=== PATIENT | male | born 1940 | race Caucasian/White ===

== ENCOUNTER → 2020-05-07 08:09 | Outpatient (BNVA) | payer MEDICARE, SELFPAY | PROVIDERS: PCP Internal Medicine; Visit Provider Internal Medicine | DX: I48.20 Chronic atrial fibrillation, unspecified (principal); Z51.81 Encounter for therapeutic drug level monitoring; Z79.01 Long term (current) use of anticoagulants | CPT/HCPCS: 85610; 99211 ==

== ENCOUNTER → 2020-05-18 08:16 | Outpatient (BNVA) | payer MEDICARE, SELFPAY | PROVIDERS: PCP Internal Medicine; Visit Provider Internal Medicine | DX: I48.20 Chronic atrial fibrillation, unspecified (principal); Z51.81 Encounter for therapeutic drug level monitoring; Z79.01 Long term (current) use of anticoagulants | CPT/HCPCS: 85610; 99211 ==

== ENCOUNTER → 2020-06-04 08:15 | Outpatient (BNVA) | payer MEDICARE, SELFPAY | PROVIDERS: PCP Internal Medicine; Visit Provider Internal Medicine | DX: I48.20 Chronic atrial fibrillation, unspecified (principal); Z51.81 Encounter for therapeutic drug level monitoring; Z79.01 Long term (current) use of anticoagulants | CPT/HCPCS: 85610; 99211 ==

== ENCOUNTER → 2020-06-29 08:25 | Outpatient (BNVA) | payer MEDICARE, SELFPAY | PROVIDERS: PCP Internal Medicine; Visit Provider Internal Medicine | DX: I48.20 Chronic atrial fibrillation, unspecified (principal); Z51.81 Encounter for therapeutic drug level monitoring; Z79.01 Long term (current) use of anticoagulants | CPT/HCPCS: 85610; 99211 ==

== ENCOUNTER → 2020-07-08 08:23 | Outpatient (BNVA) | payer MEDICARE, SELFPAY | PROVIDERS: PCP Internal Medicine; Visit Provider Internal Medicine | DX: I48.20 Chronic atrial fibrillation, unspecified (principal); Z51.81 Encounter for therapeutic drug level monitoring; Z79.01 Long term (current) use of anticoagulants | CPT/HCPCS: 85610; 99211 ==

== ENCOUNTER → 2020-07-15 08:02 | Outpatient (BNVA) | payer MEDICARE, SELFPAY | PROVIDERS: PCP Internal Medicine; Visit Provider Internal Medicine | DX: I48.20 Chronic atrial fibrillation, unspecified (principal); Z51.81 Encounter for therapeutic drug level monitoring; Z79.01 Long term (current) use of anticoagulants | CPT/HCPCS: 85610; 99211 ==

== ENCOUNTER → 2020-08-12 08:19 | Outpatient (BNVA) | payer MEDICARE, SELFPAY | PROVIDERS: PCP Internal Medicine; Visit Provider Internal Medicine | DX: I48.20 Chronic atrial fibrillation, unspecified (principal); Z51.81 Encounter for therapeutic drug level monitoring; Z79.01 Long term (current) use of anticoagulants | CPT/HCPCS: 85610; 99211 ==

== ENCOUNTER → 2020-09-16 08:15 | Outpatient (BNVA) | payer MEDICARE, SELFPAY | PROVIDERS: PCP Internal Medicine; Visit Provider Internal Medicine | DX: I48.20 Chronic atrial fibrillation, unspecified (principal); Z51.81 Encounter for therapeutic drug level monitoring; Z79.01 Long term (current) use of anticoagulants | CPT/HCPCS: 85610; 99211 ==

== ENCOUNTER → 2020-09-23 08:14 | Outpatient (BNVA) | payer MEDICARE, SELFPAY | PROVIDERS: PCP Internal Medicine; Visit Provider Internal Medicine | DX: Z79.01 Long term (current) use of anticoagulants (principal); Z51.81 Encounter for therapeutic drug level monitoring | CPT/HCPCS: 85610; 99211 ==

== ENCOUNTER → 2020-10-28 08:03 | Outpatient (BNVA) | payer MEDICARE, SELFPAY | PROVIDERS: PCP Internal Medicine; Visit Provider Internal Medicine | DX: I48.20 Chronic atrial fibrillation, unspecified (principal); Z51.81 Encounter for therapeutic drug level monitoring; Z79.01 Long term (current) use of anticoagulants | CPT/HCPCS: 85610; 99211 ==

== ENCOUNTER → 2020-12-02 08:23 | Outpatient (BNVA) | payer MEDICARE, SELFPAY | PROVIDERS: PCP Internal Medicine; Visit Provider Internal Medicine | DX: I48.20 Chronic atrial fibrillation, unspecified (principal); Z51.81 Encounter for therapeutic drug level monitoring; Z79.01 Long term (current) use of anticoagulants | CPT/HCPCS: 85610; 99211 ==

== ENCOUNTER 2020-12-14 11:01 | Outpatient (REF) | payer MEDICARE, SELFPAY ==
--- NOTE | ~2020-12-14 | US_ITS ---
EXAMINATION: US VENOUS ULTRASOUND WITH DOPPLER LOWER EXTREMITY, RIGHT CLINICAL INFORMATION: Acute embolism and thrombosis COMPARISON: None TECHNIQUE: Ultrasound of the deep veins is performed from the hip to the calf with compression sonography and color and pulse Doppler assessment. Spectral analysis with color-flow imaging is performed. FINDINGS: There is normal venous compression and respiratory variation and augmented flow. The visualized common femoral vein, superficial femoral vein, profunda femoral vein, popliteal vein, and the trifurcation region shows no evidence of deep venous thrombosis. There is no significant popliteal fossa cyst. There is soft tissue edema in the calf. If the patient's symptoms persist, followup ultrasound in 5 days 7 days might be of value to exclude proximal propagation from a non-visualized calf vein. US/US venous duplex LE RT IMPRESSION: No DVT demonstrated in the right lower extremity. Soft tissue edema in calf.
[2020-12-14 11:43] LABS: MANUAL DIFF FLAG NO
[2020-12-14 12:03] LABS: D Dimer < 200 NG/ML
[2020-12-14 12:04] LABS: Basophils Percent Auto 0.4 % (0-2); Eosinophils Absolute Auto 0.3 X10*3/uL (0.0-0.4); Hematocrit 43.7 % (42-52); Hemoglobin 14.6 g/dl (14.0-18.0); Imm Gran Pct Auto 1.4 % (0.0-0.4); Lymphocytes Absolute Auto 1.7 X10*3/uL (1.2-4.9); Lymphocytes Percent Auto 23.7 % (20-40); Mean Corpuscular HGB Conc 33.4 g/dl (31.0-36.0); Mean Corpuscular Hemoglobin 31.2 pg (27.0-33.0); Mean Corpuscular Volume 93.4 fL (80-98); Mean Platelet Volume 9.7 fL (9.4-12.4); Monocytes Absolute Auto 0.6 X10*3/uL (0.1-1.2); Monocytes Percent Auto 8.5 % (2-11); Neutrophils Absolute Auto 4.3 X10*3/uL (2.0-8.3); Platelet Count 150 X10*3/uL (160-400); Red Blood Count 4.68 X10*6/uL (4.60-5.80); Red Cell Distribution Width 13.2 % (11.0-16.0)
[2020-12-14 12:26] LABS: B Type Natriuretic Peptide 98 pg/mL (<100)
[2020-12-14 12:27] LABS: Alanine Aminotransferase 22 U/L (0-40); Albumin Level 4.7 g/dL (3.5-5.0); Alkaline Phosphatase 65 U/L (39-117); Anion Gap 11 (12-20); Aspartate Amino Transferase 21 U/L (5-37); Bilirubin Total 1.3 mg/dL (0.0-1.0); Blood Urea Nitrogen 23 mg/dL (9-16); Calcium 9.3 mg/dL (8.4-10.2); Carbon Dioxide 29 mmol/L (22-29); Chloride 102 mmol/L (96-108); Estimated Glomerular Filt Rate > 60; Glucose Random 98 mg/dL (60-115); Potassium 4.6 mmol/L (3.3-5.1); Sodium 137 mmol/L (135-145); Total Protein 7.7 g/dL (6.5-8.0)
[2020-12-14 12:48] LABS: Free T4 (Free Thyroxine) 1.01 ng/dL (0.71-1.85)
== END 2020-12-14 11:02 | disposition home or self-care (01) ==
LOC: HO.US 11:01
PROVIDERS: PCP Internal Medicine; Visit Provider Internal Medicine
DX: I82.409 Acute embolism and thrombosis of unspecified deep veins of unspecified lower extremity (principal)
CPT/HCPCS: 36415; 80053; 83880; 84439; 84443; 85025; 85379; 93971

== ENCOUNTER → 2021-01-06 08:26 | Outpatient (BNVA) | payer MEDICARE, SELFPAY | PROVIDERS: PCP Internal Medicine; Visit Provider Internal Medicine | DX: I48.20 Chronic atrial fibrillation, unspecified (principal); Z51.81 Encounter for therapeutic drug level monitoring; Z79.01 Long term (current) use of anticoagulants | CPT/HCPCS: 85610; 99211 ==

== ENCOUNTER 2021-01-27 08:32 | Outpatient (REF) | payer MEDICARE, SELFPAY ==
--- NOTE | ~2021-01-27 | XR_ITS ---
EXAMINATION: XR ANKLE, RIGHT CLINICAL INFORMATION: Right ankle effusion. COMPARISON: None TECHNIQUE: AP, lateral, and mortise views of the right ankle. FINDINGS: No acute fracture or dislocation. The ankle mortise is maintained. No joint space narrowing or marginal osteophytes. No osseous erosion. Tiny plantar and small dorsal calcaneal enthesophytes. Circumferential soft tissue swelling extending along the dorsum of the foot. No significant joint effusion. XR/XR ankle RT 2V IMPRESSION: Circumferential soft tissue swelling with extension along the dorsum of the foot. No acute osseous abnormality.
== END 2021-01-27 08:33 | disposition home or self-care (01) ==
LOC: HO.XRAY 08:32
PROVIDERS: PCP Internal Medicine; Visit Provider Internal Medicine
DX: M25.471 Effusion, right ankle (principal)
CPT/HCPCS: 73600

== ENCOUNTER → 2021-02-10 08:26 | Outpatient (BNVA) | payer MEDICARE, SELFPAY | PROVIDERS: PCP Internal Medicine; Visit Provider Internal Medicine | DX: I48.20 Chronic atrial fibrillation, unspecified (principal); Z51.81 Encounter for therapeutic drug level monitoring; Z79.01 Long term (current) use of anticoagulants | CPT/HCPCS: 85610; 99211 ==

== ENCOUNTER → 2021-03-10 08:29 | Outpatient (BNVA) | payer MEDICARE, SELFPAY | PROVIDERS: PCP Internal Medicine; Visit Provider Internal Medicine | DX: I48.20 Chronic atrial fibrillation, unspecified (principal); Z51.81 Encounter for therapeutic drug level monitoring; Z79.01 Long term (current) use of anticoagulants | CPT/HCPCS: 85610; 99211 ==

== ENCOUNTER → 2021-04-14 08:21 | Outpatient (BNVA) | payer MEDICARE, SELFPAY | PROVIDERS: PCP Internal Medicine; Visit Provider Internal Medicine | DX: I48.20 Chronic atrial fibrillation, unspecified (principal); Z51.81 Encounter for therapeutic drug level monitoring; Z79.01 Long term (current) use of anticoagulants | CPT/HCPCS: 85610; 99211 ==

== ENCOUNTER → 2021-05-19 08:31 | Outpatient (BNVA) | payer MEDICARE, SELFPAY | PROVIDERS: PCP Internal Medicine; Visit Provider Internal Medicine | DX: I48.20 Chronic atrial fibrillation, unspecified (principal); Z51.81 Encounter for therapeutic drug level monitoring; Z79.01 Long term (current) use of anticoagulants | CPT/HCPCS: 85610; 99211 ==

== ENCOUNTER → 2021-06-21 08:25 | Outpatient (BNVA) | payer MEDICARE, SELFPAY | PROVIDERS: PCP Internal Medicine; Visit Provider Internal Medicine | DX: I48.20 Chronic atrial fibrillation, unspecified (principal); Z51.81 Encounter for therapeutic drug level monitoring; Z79.01 Long term (current) use of anticoagulants | CPT/HCPCS: 85610; 99211 ==

== ENCOUNTER → 2021-07-26 08:31 | Outpatient (BNVA) | payer MEDICARE, SELFPAY | PROVIDERS: PCP Internal Medicine; Visit Provider Internal Medicine | DX: I48.20 Chronic atrial fibrillation, unspecified (principal); Z51.81 Encounter for therapeutic drug level monitoring; Z79.01 Long term (current) use of anticoagulants | CPT/HCPCS: 85610; 99211 ==

== ENCOUNTER → 2021-08-30 09:02 | Outpatient (BNVA) | payer MEDICARE, SELFPAY | PROVIDERS: PCP Internal Medicine; Visit Provider Internal Medicine | DX: I48.20 Chronic atrial fibrillation, unspecified (principal); Z51.81 Encounter for therapeutic drug level monitoring; Z79.01 Long term (current) use of anticoagulants | CPT/HCPCS: 85610; 99211 ==

== ENCOUNTER → 2021-10-04 13:26 | Outpatient (BNVA) | payer MEDICARE, SELFPAY | PROVIDERS: PCP Internal Medicine; Visit Provider Internal Medicine | DX: I48.20 Chronic atrial fibrillation, unspecified (principal); Z79.01 Long term (current) use of anticoagulants; Z51.81 Encounter for therapeutic drug level monitoring | CPT/HCPCS: 85610; 99211 ==

== ENCOUNTER → 2021-11-08 08:29 | Outpatient (BNVA) | payer MEDICARE, SELFPAY | PROVIDERS: PCP Internal Medicine; Visit Provider Internal Medicine | DX: I48.20 Chronic atrial fibrillation, unspecified (principal); Z79.01 Long term (current) use of anticoagulants; Z51.81 Encounter for therapeutic drug level monitoring | CPT/HCPCS: 85610; 99211 ==

== ENCOUNTER → 2021-12-08 08:27 | Outpatient (BNVA) | payer MEDICARE, SELFPAY | PROVIDERS: PCP Internal Medicine; Visit Provider Internal Medicine | DX: I48.20 Chronic atrial fibrillation, unspecified (principal); Z79.01 Long term (current) use of anticoagulants; Z51.81 Encounter for therapeutic drug level monitoring | CPT/HCPCS: 85610; 99211 ==

== ENCOUNTER → 2022-01-12 08:39 | Outpatient (BNVA) | payer MEDICARE, SELFPAY | PROVIDERS: PCP Internal Medicine; Visit Provider Internal Medicine | DX: I48.20 Chronic atrial fibrillation, unspecified (principal); Z79.01 Long term (current) use of anticoagulants; Z51.81 Encounter for therapeutic drug level monitoring | CPT/HCPCS: 85610; 99211 ==

== ENCOUNTER → 2022-01-26 08:31 | Outpatient (BNVA) | payer MEDICARE, SELFPAY | PROVIDERS: PCP Internal Medicine; Visit Provider Internal Medicine | DX: I48.20 Chronic atrial fibrillation, unspecified (principal); Z79.01 Long term (current) use of anticoagulants; Z51.81 Encounter for therapeutic drug level monitoring | CPT/HCPCS: 85610; 99211 ==

== ENCOUNTER → 2022-03-09 08:23 | Outpatient (BNVA) | payer MEDICARE, SELFPAY | PROVIDERS: PCP Internal Medicine; Visit Provider Internal Medicine | DX: I48.20 Chronic atrial fibrillation, unspecified (principal); Z79.01 Long term (current) use of anticoagulants; Z51.81 Encounter for therapeutic drug level monitoring | CPT/HCPCS: 85610; 99211 ==

== ENCOUNTER → 2022-03-15 08:21 | Outpatient (REF) | payer MEDICARE, SELFPAY ==
--- NOTE | 2022-03-15 08:24 | CA_ITS ---
Transthoracic Echocardiogram Patient (Last, First, Middle): Erasmo Escudero R Gender: Male Date of : 1940 Age: 81 Procedure Date: 03/15/2022 Procedure Type: Transthoracic Echocardiogram Location: OP Height: 182.88 cm Weight: 97.07 kg BSA: 2.19 m2 Heart Rate: bpm BP: 140 / 75 mmHg Service Employee: [employer] Referring MD: Royal Aguila MD Autoc[employer] Technician: Roc Kaplan MD Symptoms: I77.810 - Thoracic aortic ectasia Study Quality: Fair ECG Rhythm: Ventriculary paced rhythm Conclusions: - 1. Mild LV systolic dysfunction with mild LVH 2 Moderately dilated left atrium and severely dilated right atrium 3. Mild mitral and tricuspid regurgitation 4. Normal RV systolic pressure 5. No pericardial effusion Findings Left Ventricle Normal left ventricular cavity size. There is mildly increased left ventricular wall thickness. The left ventricular systolic function is mildly decreased. The visually estimated ejection fraction is between 45-50%. Regional wall motion abnormalities can not be excluded due to suboptimal endocardial definition. There is paradoxical septal motion consistent with a right ventricular pacemaker. Diastolic function is indeterminate on the basis of available data. Right Ventricle Mildly increased right ventricular cavity size. There is normal right ventricular systolic function. There is a pacemaker wire seen in the right ventricle. Atria The left atrium is moderately dilated. Interatrial shunt cannot be excluded. The right atrium is severely dilated. Aortic Valve There is mild calcification of the aortic valve. There is moderate thickening of the aortic valve. There is no aortic valve stenosis. There is no aortic valve regurgitation. Mitral Valve There is mild anterior and posterior mitral leaflet thickening. There is mild mitral annular calcification. There is mild mitral valve regurgitation. There is no mitral valve stenosis. Pulmonic Valve The pulmonic valve is likely normal. There is trace to mild pulmonic valve regurgitation. Tricuspid Valve Likely normal tricuspid valve structure and function. There is mild tricuspid valve regurgitation. The right ventricular systolic pressure is normal. The right ventricular systolic pressure is 26 mmHg. Normal right atrial pressure. There is no evidence of pulmonary hypertension. Great Vessels All visible segments of the aorta are normal in size. The pulmonary artery was not well visualized. Venous The inferior vena cava is normal in size and collapses greater than 50% with inspiration. Pericardium/Pleural There is no evidence of pericardial effusion. Prior Study Comparison no previous study in the last 5 years for comparison Measurements 2D Linear Measurements IVSd: 1.35 0.6-0.9/0.6-1.0 cm LVIDd: 5.05 3.9-5.3/4.2-5.9 cm LVIDd Index: 2.31 2.4-3.2/2.2-3.1 cm/m2 LVIDs: 3.37 2.0-3.6 cm LVPWd: 1.24 0.7-1.1 cm Ao Root: 3.50 2.1-3.5 cm LA Diam: 5.00 2.7-3.8/3.0-4.0 cm LAIDs Index: 2.28 1.5-2.3 cm/m2 LV Mass: 329.84 67-162/88-224 g LV Mass Index: 150.61 43-95/49-115 g/m2 LVOT Diam: 2.10 3.0+(-)1.3 cm 2D Systolic Function EF 4C: 44.10 >55% EF 2C: 45.60 >55% EF BiP: 46.90 >55% Mitral Valve MV Pk E: 0.83 MV PK A: 0.39 MV Decel Time: 236.00 E/A: 2.10 E'Lateral: 12.80 E'Medial: 9.14 E/E' Med: 9.00 E/E' Lat: 6.50 PHT: 69.00 MVA PHT: 3.19 Decel [place]: 3.50 Aortic Valve AoV Pk Ronald: 1.19 AoV Mn Ronald: 0.89 AoV VTI: 0.26 AoV Pk Grad: 6.00 Aov Mn Grad: 3.00 MASON Cont.VTI: 2.40 LVOT LVOT Pk Ronald: 0.86 LVOT Mn Ronald: 0.64 LVOT VTI: 0.18 LVOT Pk Grad: 3.00 LVOT Mn Grad: 2.00 LVOT Diam: 2.10 LVOT Area: 3.46 Diastolic Function MV Pk E: 0.83 MV Pk A: 0.39 E/A: 2.10 E'Medial: 9.14 E/E' Med: 9.00 E' Laterial: 12.80 E/E' Lat: 6.50 Right Ventricle TAPSE (mm): 18.00 TVS' Ronald: 11.00 Tricuspid Valve TR Pk Ronald: 2.38 TR Pk Grad: 23.00 RA Press: 3.00 RVSP: 26.00 Great Vessels Aorta Ao Root-2D: 3.50 2.0-3.7 cm Ao Asc: 3.40 2.1-3.4 cm Pulmonary Valve PV Pk Ronald: 0.90 Peak PV Grad: 3.00 Updated in Other Vendor System with Status of Final Roc Kaplan MD electronically signed on 03/15/2022 10:39:20 AM with status of Final
== END ==
LOC: HO.CARD 08:21
PROVIDERS: Visit Provider Internal Medicine
DX: I77.810 Thoracic aortic ectasia (principal)
CPT/HCPCS: 93306

== ENCOUNTER → 2022-04-10 08:20 | Outpatient (BNVA) | payer MEDICARE, SELFPAY | PROVIDERS: PCP Internal Medicine; Visit Provider Internal Medicine | DX: I48.20 Chronic atrial fibrillation, unspecified (principal); Z79.01 Long term (current) use of anticoagulants; Z51.81 Encounter for therapeutic drug level monitoring | CPT/HCPCS: 85610; 99211 ==

== ENCOUNTER 2022-05-10 06:24 | Emergency (ER) | payer MEDICARE, SELFPAY ==
[2022-05-10 06:36] VITALS: BP 153/89; BP 184/100; PULSE 68; PULSE 88; RESP 17; TEMP 36.4; O2SAT 98; O2SAT 99; BMI 29.1
--- NOTE | 2022-05-10 06:37 | ED.GENADULT ---
HPI - General Adult General Chief complaint: General Medical Stated complaint: EPITAXIS X10 MINS Time Seen by Provider: 05/10/22 06:31 Source: patient and EMS Mode of arrival: EMS Limitations: no limitations History of Present Illness HPI narrative: Patient comes to the emergency room complaining of epistaxis from the right nostril. Patient states that he woke up this morning, noticed that there was some dry blood in his mouth, and suddenly started leaking blood through his right nostril. Patient is on Coumadin, takes it for atrial fibrillation. patient denies any trauma. Related Data Previous Rx's Medication Instructions Recorded furosemide 20 mg tablet 20 mg PO DAILY 90 days #90 tabs 08/23/21 levothyroxine 75 mcg tablet 75 mcg PO QAM #90 tabs 08/23/21 metoprolol succinate 25 mg 25 mg PO DAILY #90 tabs 08/23/21 tablet,extended release 24 hr simvastatin 20 mg tablet 20 mg PO BEDTIME #90 tabs 08/23/21 warfarin 10 mg tablet (Jantoven) See Rx Instructions .Route 08/23/21 .COMPLEX #45 caps warfarin 7.5 mg tablet (Jantoven) 7.5 mg PO Q OTHER DAY #45 caps 08/23/21 zolpidem 5 mg tablet (Ambien) 5 mg PO BEDTIME PRN sleep #20 tabs 03/15/22 Allergies Allergy/AdvReac Type Severity Reaction Status Date / Time doxycycline [Doxycycline] Allergy Severe HIVES Verified 04/10/22 08:23 lisinopril Allergy Severe RASH Verified 04/10/22 08:23 Review of Systems Review of Systems: Constitutional : No Weight loss, No Fever, No Chills, No Night Sweats, No Fatigue, No Malaise ENT/Mouth : Complaining of epistaxis from the right nostril, No Hearing loss, No Ear Pain, No Nasal Congestion, No Sinus Pain, No Hoarseness, No sore throat, No Rhinorrhea, No Swallowing Difficulty Eyes: No Eye Pain, No Swelling, No Redness, No Foreign Body, No Discharge, No Vision Changes Cardiovascular : No Chest Pain, No SOB, No Dyspnea on Exertion, No Orthopnea, No Edema, No Palpitations Respiratory : No Cough, No Sputum, No Wheezing, No Smoke Exposure, No Dyspnea Gastrointestinal : No Nausea, No Vomiting, No Diarrhea, No Constipation, No abdominal Pain, No Hematochezia, No Melena Genitourinary : no irregular bleeding, No Dysuria, No Urinary Frequency, No Hematuria, No Urinary Incontinence, No Urgency, No Flank Pain, No Urinary Flow Changes, No Hesitancy Musculoskeletal : No joint pain, No Myalgias, No Joint Swelling Skin : No Skin Lesions, No rash Neuro : No Weakness, No Numbness, No Paresthesias, No Loss of Consciousness, No Dizziness, No Headache Psych : No Anxiety/Panic, No Depression, No SI/HI/AH/VH, No Social Issues, Heme/Lymph: No Bruising, No Bleeding,No Lymphadenopathy Endocrine : No Polyuria, No Polydipsia, No Temperature Intolerance [facility] Past Medical History Medical History Atrial fibrillation Basal cell carcinoma of skin Hypercholesterolemia Hyperparathyroidism Hypertension Hypothyroid Monoclonal paraproteinemia Sick sinus syndrome Tubular adenoma of colon Surgical History History of parathyroidectomy Family History Family History Father Past heart attack Social History Social History Housing: House Alcohol intake: current Alcohol intake frequency: a few times a week Alcohol type: wine Patient Tobacco Use Status: Never used Tobacco Smoked in Last 30 Days: No e-Cigarette/Vaping Use: Never Used Second Hand Smoke Exposure: No Use of substances other than those prescribed or required for medical reasons: No service: Yes Current occupational status: retired Current occupational exposures/hazards: No Cognitive needs: No Hearing needs: No Vision needs: Yes Physical Exam ED Vital Signs: Vital Signs - 24 hr 05/10/22 06:36 05/10/22 06:39 05/10/22 06:40 Temperature 97.5 F 97.5 F 97.5 F Pulse Rate 68 65 66 Respiratory Rate 17 17 17 Blood Pressure 153/89 H 153/89 H 153/89 H Pulse Oximetry 99 97 98 Oxygen Delivery Method Room Air Room Air Room Air BMI result Body Mass Index 29.1 Const Other: Appearance: Alert. Oriented X3. No acute distress. Eyes: Pupils equal, round and reactive to light. ENT: Pharynx normal. epistaxis from the right nostril. Neck: Normal inspection. Neck supple. No lymph nodes noted. No crepitus CVS: Normal heart rate and rhythm. Pulses normal. Normal S1 and S2 Respiratory: No respiratory distress. Breath sounds normal. No Wheezing. No rales Abdomen: Soft and nontender. No rigidity. No distention. Skin: Skin warm and dry. Normal skin color. Normal skin turgor. Extremities: No lower extremity edema. No Lacerations. No Rash Neuro: Oriented X 3. No motor deficit. No sensory deficit. Moving all extremities. No slurred speech. CN 2 through 12 grossly intact Psych: calm, cooperative, normal affect Course Course Course Narrative: Patient's nostril was sprayed with Afrin, at this time, there is gauze soaked in Afrin in the patient's right nostril, in About 10 minutes, we will reassess we are checking basic lab work including INR, labs pending Sign out given to DR. Crockett Medications Administered Discontinued Medications Generic Name Dose Route Start Last Admin Trade Name Freq PRN Reason Stop Dose Admin Oxymetazoline HCl 2 spray 05/10/22 06:31 05/10/22 06:40 Oxymetazoline Hcl 0.05 % Nasal 15 Ml [place] NOSTRIL-B 05/10/22 06:32 2 spray ONCE ONE Administration Discharge Plan Discharge Clinical Impression: Acute anterior epistaxis Patient Disposition: Still a Patient Prescriptions: No Action zolpidem [Ambien] 5 mg tablet 5 mg PO BEDTIME PRN (Reason: sleep) Qty: 20 2RF metoprolol succinate 25 mg tablet extended release 24 hr 25 mg PO DAILY Qty: 90 3RF simvastatin 20 mg tablet 20 mg PO BEDTIME Qty: 90 3RF levothyroxine 75 mcg tablet 75 mcg PO QAM Qty: 90 3RF warfarin [Jantoven] 7.5 mg tablet 7.5 mg PO Q OTHER DAY Qty: 45 3RF Protocol: Dose Management Condition: Sunday (Week One) Dose/Route: 10 mg Instruction: 1 x 10 mg tablet Condition: Sunday Dose/Route: 7.5 mg Instruction: 1 x 7.5 mg tablet Condition: Sunday Dose/Route: 10 mg Instruction: 1 x 10 mg tablet Condition: Sunday Dose/Route: 7.5 mg Instruction: 1 x 7.5 mg tablet Condition: Dose/Route: 10 mg Instruction: 1 x 10 mg tablet Condition: Sunday Dose/Route: 7.5 mg Instruction: 1 x 7.5 mg tablet Condition: Sunday Dose/Route: 10 mg Instruction: 1 x 10 mg tablet Condition: Sunday ( Two) Dose/Route: 10 mg Instruction: 1 x 10 mg tablet Condition: Sunday Dose/Route: 7.5 mg Instruction: 1 x 7.5 mg tablet Condition: Sunday Dose/Route: 10 mg Instruction: 1 x 10 mg tablet Condition: Sunday Dose/Route: 7.5 mg Instruction: 1 x 7.5 mg tablet Condition: Dose/Route: 10 mg Instruction: 1 x 10 mg tablet Condition: Sunday Dose/Route: 7.5 mg Instruction: 1 x 7.5 mg tablet Condition: Sunday Dose/Route: 10 mg Instruction: 1 x 10 mg tablet Protocol Text: Adjustment Start Date: Sunday04/10/22 INR Value: 2.3 INR Date: 04/10/22 Recheck Date: 05/15/22 Additional Instructions: cont reg dosing call with any medication changes warfarin [Jantoven] 10 mg tablet See Rx Instructions .ROUTE .COMPLEX Qty: 45 3RF Protocol: Dose Management Condition: Sunday (Week One) Dose/Route: 10 mg Instruction: 1 x 10 mg tablet Condition: Sunday Dose/Route: 7.5 mg Instruction: 1 x 7.5 mg tablet Condition: Sunday Dose/Route: 10 mg Instruction: 1 x 10 mg tablet Condition: Sunday Dose/Route: 7.5 mg Instruction: 1 x 7.5 mg tablet Condition: Dose/Route: 10 mg Instruction: 1 x 10 mg tablet Condition: Sunday Dose/Route: 7.5 mg Instruction: 1 x 7.5 mg tablet Condition: Sunday Dose/Route: 10 mg Instruction: 1 x 10 mg tablet Condition: Sunday ( Two) Dose/Route: 10 mg Instruction: 1 x 10 mg tablet Condition: Sunday Dose/Route: 7.5 mg Instruction: 1 x 7.5 mg tablet Condition: Sunday Dose/Route: 10 mg Instruction: 1 x 10 mg tablet Condition: Sunday Dose/Route: 7.5 mg Instruction: 1 x 7.5 mg tablet Condition: Dose/Route: 10 mg Instruction: 1 x 10 mg tablet Condition: Sunday Dose/Route: 7.5 mg Instruction: 1 x 7.5 mg tablet Condition: Sunday Dose/Route: 10 mg Instruction: 1 x 10 mg tablet Protocol Text: Adjustment Start Date: Sunday04/10/22 INR Value: 2.3 INR Date: 04/10/22 Recheck Date: 05/15/22 Additional Instructions: cont reg dosing call with any medication changes Rx Instructions: One tablet by mouth every other day alternating with 7.5 mg; furosemide 20 mg tablet 20 mg PO DAILY 90 Days Qty: 90 3RF
[2022-05-10 06:39] VITALS: BP 153/89; PULSE 65; RESP 17; TEMP 36.4; O2SAT 97
[2022-05-10 06:40] VITALS: BP 153/89; PULSE 66; RESP 17; TEMP 36.4; O2SAT 98
[2022-05-10] MEDS: Oxymetazoline HCl 0.05 % Nasal 15 ML SPRAY 2 SPRAY NOSTRIL-B (06:40)
[2022-05-10 06:59] LABS: MANUAL DIFF FLAG NO
[2022-05-10 07:02] LABS: Basophils Percent Auto 0.7 % (0-2); Eosinophils Absolute Auto 0.3 X10*3/uL (0.0-0.4); Eosinophils Percent Auto 5.7 % (0-4); Hematocrit 41.6 % (42.0-52.0); Hemoglobin 13.9 g/dl (14.0-18.0); Imm Gran Abs Auto 0.06 X10*3/uL (0.00-0.03); Imm Gran Pct Auto 1.1 % (0.0-0.4); Lymphocytes Absolute Auto 1.3 X10*3/uL (1.2-4.9); Lymphocytes Percent Auto 22.6 % (20-40); Mean Corpuscular HGB Conc 33.4 g/dl (31.0-36.0); Mean Corpuscular Hemoglobin 31.2 pg (27.0-33.0); Mean Corpuscular Volume 93.3 fL (80.0-98.0); Mean Platelet Volume 9.3 fL (9.4-12.4); Monocytes Absolute Auto 0.4 X10*3/uL (0.1-1.2); Monocytes Percent Auto 7.8 % (2-11); Neutrophils Absolute Auto 3.5 x10*3/uL (2.0-8.3); Neutrophils Percent Auto 62.1 % (45-73); Platelet Count 145 X10*3/uL (160-400); Red Blood Count 4.46 X10*6/uL (4.60-5.80); White Blood Count 5.7 X10*3/uL (4.8-10.8)
[2022-05-10 07:06] LABS: INTERNATIONAL NORM RATIO 1.9 (0.9-1.1); Prothrombin Time 22.5 SEC (10.0-13.1)
[2022-05-10 07:14] LABS: Anion Gap 12 (12-20); Blood Urea Nitrogen 21 mg/dL (9-16); Calcium 8.9 mg/dL (8.4-10.2); Carbon Dioxide 30 mmol/L (22-29); Chloride 106 mmol/L (96-108); Creatinine Clr Calc Pharmacy 67.7; Estimated Glomerular Filt Rate > 60; Glucose Random 102 mg/dL (60-115); Potassium 4.5 mmol/L (3.3-5.1); Sodium 143 mmol/L (135-145)
[2022-05-10] MEDS: Silver Nitrate Applicator STICK..EA. 1 APPL TOPICAL (08:29)
--- NOTE | 2022-05-10 08:38 | ED.GENADULT ---
HPI - General Adult General Chief complaint: General Medical Stated complaint: EPITAXIS X10 MINS Time Seen by Provider: 05/10/22 06:31 Source: patient and EMS Mode of arrival: EMS Limitations: no limitations Related Data Previous Rx's Medication Instructions Recorded furosemide 20 mg tablet 20 mg PO DAILY 90 days #90 tabs 08/23/21 levothyroxine 75 mcg tablet 75 mcg PO QAM #90 tabs 08/23/21 metoprolol succinate 25 mg 25 mg PO DAILY #90 tabs 08/23/21 tablet,extended release 24 hr simvastatin 20 mg tablet 20 mg PO BEDTIME #90 tabs 08/23/21 warfarin 10 mg tablet (Jantoven) See Rx Instructions .Route 08/23/21 .COMPLEX #45 caps warfarin 7.5 mg tablet (Jantoven) 7.5 mg PO Q OTHER DAY #45 caps 08/23/21 zolpidem 5 mg tablet (Ambien) 5 mg PO BEDTIME PRN sleep #20 tabs 03/15/22 Allergies Allergy/AdvReac Type Severity Reaction Status Date / Time doxycycline [Doxycycline] Allergy Severe HIVES Verified 04/10/22 08:23 lisinopril Allergy Severe RASH Verified 04/10/22 08:23 [facility] Past Medical History Medical History Atrial fibrillation Basal cell carcinoma of skin Hypercholesterolemia Hyperparathyroidism Hypertension Hypothyroid Monoclonal paraproteinemia Sick sinus syndrome Tubular adenoma of colon Surgical History History of parathyroidectomy Family History Family History Father Past heart attack Social History Social History Housing: House Alcohol intake: current Alcohol intake frequency: a few times a week Alcohol type: wine Patient Tobacco Use Status: Never used Tobacco Smoked in Last 30 Days: No e-Cigarette/Vaping Use: Never Used Second Hand Smoke Exposure: No Use of substances other than those prescribed or required for medical reasons: No Advance Directives: No service: Yes Current occupational status: retired Current occupational exposures/hazards: No Cognitive needs: No Hearing needs: No Vision needs: Yes Physical Exam ED Vital Signs: Vital Signs - 24 hr 05/10/22 06:36 11/23/22 06:39 05/10/22 06:40 Temperature 97.5 F 97.5 F 97.5 F Pulse Rate 68 65 66 Respiratory Rate 17 17 17 Blood Pressure 153/89 H 153/89 H 153/89 H Pulse Oximetry 99 97 98 Oxygen Delivery Method Room Air Room Air Room Air BMI result Body Mass Index 29.1 Course Reevaluation(s) Reevaluation #1: Procedure: Silver nitrate cautery, patient tolerated procedure well Time: 08:39 Medications Administered Discontinued Medications Generic Name Dose Route Start Last Admin Trade Name Ivan PRN Reason Stop Dose Admin Oxymetazoline HCl 2 spray 05/10/22 06:31 05/10/22 06:40 Oxymetazoline Hcl 0.05 % Nasal 15 Ml [place] NOSTRIL-B 05/10/22 06:32 2 spray ONCE ONE Administration Silver Nitrate 1 appl 05/10/22 08:02 05/10/22 08:29 Silver Nitrate Applicator Stick..Ea. TOPICAL 05/10/22 08:03 1 appl ONCE ONE Administration Medical Decision Making Lab Data Result diagrams: 05/10/22 06:48 05/10/22 06:48 Labs: Lab Results 05/10/22 05/10/22 05/10/22 Range/Units 06:48 06:48 06:48 WBC 5.7 (4.8-10.8) X10*3/uL RBC 4.46 L (4.60-5.80) X10*6/uL Hgb 13.9 L (14.0-18.0) g/dl Hct 41.6 L (42.0-52.0) % MCV 93.3 (80.0-98.0) fL MCH 31.2 (27.0-33.0) pg MCHC 33.4 (31.0-36.0) g/dl RDW 13.0 (11.0-16.0) % Plt Count 145 L (160-400) X10*3/uL MPV 9.3 L (9.4-12.4) fL Immature Gran % (Auto) 1.1 H (0.0-0.4) % Neut % (Auto) 62.1 (45-73) % Lymph % (Auto) 22.6 (20-40) % [place] % (Auto) 7.8 (2-11) % Eos % (Auto) 5.7 H (0-4) % Baso % (Auto) 0.7 (0-2) % Lymph # (Auto) 1.3 (1.2-4.9) X10*3/uL [place] # (Auto) 0.4 (0.1-1.2) X10*3/uL Eos # (Auto) 0.3 (0.0-0.4) X10*3/uL Baso # (Auto) 0.0 (0.0-0.2) X10*3/uL Abs Immat Gran (auto) 0.06 H (0.00-0.03) X10*3/uL Absolute Neuts (auto) 3.5 (2.0-8.3) x10*3/uL Absolute Nucleated RBC 0.000 (0.0-0.012) X10*3/uL Nucleated RBC % (auto) 0.0 (0.0-0.2) /100WBC PT 22.5 H (10.0-13.1) SEC INR 1.9 H (0.9-1.1) Sodium 143 (135-145) mmol/L Potassium 4.5 (3.3-5.1) mmol/L Chloride 106 (96-108) mmol/L Carbon Dioxide 30 H (22-29) mmol/L Anion Gap 12 (12-20) BUN 21 H (9-16) mg/dL Creatinine 1.00 (0.5-1.4) mg/dL Estim Creat Clear Calc 67.7 Estimated GFR > 60 Random Glucose 102 (60-115) mg/dL Calcium 8.9 (8.4-10.2) mg/dL Discharge Plan Discharge Clinical Impression: Acute anterior epistaxis Patient Disposition: Still a Patient Prescriptions: No Action zolpidem [Ambien] 5 mg tablet 5 mg PO BEDTIME PRN (Reason: sleep) Qty: 20 2RF metoprolol succinate 25 mg tablet extended release 24 hr 25 mg PO DAILY Qty: 90 3RF simvastatin 20 mg tablet 20 mg PO BEDTIME Qty: 90 3RF levothyroxine 75 mcg tablet 75 mcg PO QAM Qty: 90 3RF warfarin [Jantoven] 7.5 mg tablet 7.5 mg PO Q OTHER DAY Qty: 45 3RF Protocol: Dose Management Condition: Sunday (Week One) Dose/Route: 10 mg Instruction: 1 x 10 mg tablet Condition: Sunday Dose/Route: 7.5 mg Instruction: 1 x 7.5 mg tablet Condition: Sunday Dose/Route: 10 mg Instruction: 1 x 10 mg tablet Condition: Sunday Dose/Route: 7.5 mg Instruction: 1 x 7.5 mg tablet Condition: Dose/Route: 10 mg Instruction: 1 x 10 mg tablet Condition: Sunday Dose/Route: 7.5 mg Instruction: 1 x 7.5 mg tablet Condition: Sunday Dose/Route: 10 mg Instruction: 1 x 10 mg tablet Condition: Sunday () Dose/Route: 10 mg Instruction: 1 x 10 mg tablet Condition: Sunday Dose/Route: 7.5 mg Instruction: 1 x 7.5 mg tablet Condition: Sunday Dose/Route: 10 mg Instruction: 1 x 10 mg tablet Condition: Sunday Dose/Route: 7.5 mg Instruction: 1 x 7.5 mg tablet Condition: Dose/Route: 10 mg Instruction: 1 x 10 mg tablet Condition: Sunday Dose/Route: 7.5 mg Instruction: 1 x 7.5 mg tablet Condition: Sunday Dose/Route: 10 mg Instruction: 1 x 10 mg tablet Protocol Text: Adjustment Start Date: Sunday04/10/22 INR Value: 2.3 INR Date: 04/10/22 Recheck Date: 05/15/22 Additional Instructions: cont reg dosing call with any medication changes warfarin [] 10 mg tablet See Rx Instructions .ROUTE .COMPLEX Qty: 45 3RF Protocol: Dose Management Condition: Sunday (Week One) Dose/Route: 10 mg Instruction: 1 x 10 mg tablet Condition: Sunday Dose/Route: 7.5 mg Instruction: 1 x 7.5 mg tablet Condition: Sunday Dose/Route: 10 mg Instruction: 1 x 10 mg tablet Condition: Sunday Dose/Route: 7.5 mg Instruction: 1 x 7.5 mg tablet Condition: Dose/Route: 10 mg Instruction: 1 x 10 mg tablet Condition: Sunday Dose/Route: 7.5 mg Instruction: 1 x 7.5 mg tablet Condition: Sunday Dose/Route: 10 mg Instruction: 1 x 10 mg tablet Condition: Sunday (Week Two) Dose/Route: 10 mg Instruction: 1 x 10 mg tablet Condition: Sunday Dose/Route: 7.5 mg Instruction: 1 x 7.5 mg tablet Condition: Sunday Dose/Route: 10 mg Instruction: 1 x 10 mg tablet Condition: Sunday Dose/Route: 7.5 mg Instruction: 1 x 7.5 mg tablet Condition: Dose/Route: 10 mg Instruction: 1 x 10 mg tablet Condition: Sunday Dose/Route: 7.5 mg Instruction: 1 x 7.5 mg tablet Condition: Sunday Dose/Route: 10 mg Instruction: 1 x 10 mg tablet Protocol Text: Adjustment Start Date: Sunday04/10/22 INR Value: 2.3 INR Date: 04/10/22 Recheck Date: 05/15/22 Additional Instructions: cont reg dosing call with any medication changes Rx Instructions: One tablet by mouth every other day alternating with 7.5 mg; furosemide 20 mg tablet 20 mg PO DAILY 90 Days Qty: 90 3RF
[2022-05-10 08:59] VITALS: BP 145/77; PULSE 64; RESP 14; TEMP 36.4; O2SAT 98
== END 2022-05-10 09:20 | disposition home or self-care (01) ==
PROVIDERS: Emergency Provider Emergency Medicine; PCP Internal Medicine
DX: R04.0 Epistaxis (principal); Z79.899 Other long term (current) drug therapy
CPT/HCPCS: 36415; 80048; 85025; 85610; 99283; 99284

== ENCOUNTER → 2022-05-16 08:33 | Outpatient (BNVA) | payer MEDICARE, SELFPAY | PROVIDERS: PCP Internal Medicine; Visit Provider Internal Medicine | DX: I48.20 Chronic atrial fibrillation, unspecified (principal); Z79.01 Long term (current) use of anticoagulants; Z51.81 Encounter for therapeutic drug level monitoring | CPT/HCPCS: 85610; 99211 ==

== ENCOUNTER → 2022-05-25 13:49 | Outpatient (BNVA) | payer MEDICARE, SELFPAY | PROVIDERS: PCP Internal Medicine; Visit Provider Surgery Vascular Surgery | DX: I83.11 Varicose veins of right lower extremity with inflammation (principal); I89.0 Lymphedema, not elsewhere classified | CPT/HCPCS: 99202 ==

== ENCOUNTER → 2022-06-20 08:30 | Outpatient (BNVA) | payer MEDICARE, SELFPAY | PROVIDERS: PCP Internal Medicine; Visit Provider Internal Medicine | DX: I48.20 Chronic atrial fibrillation, unspecified (principal); Z79.01 Long term (current) use of anticoagulants; Z51.81 Encounter for therapeutic drug level monitoring | CPT/HCPCS: 85610; 99211 ==

== ENCOUNTER 2022-07-05 08:19 | Outpatient (REF) | payer MEDICARE, SELFPAY ==
--- NOTE | ~2022-07-05 | US_ITS ---
EXAMINATION: US LOWER EXTREMITY VENOUS (REFLUX EXAM), BILATERAL CLINICAL INDICATION: Chronic venous insufficiency with lower extremity varicose veins COMPARISON: 12/14/2020 TECHNIQUE: Color flow triplex imaging and compression Doppler was performed to evaluate both the deep and the superficial systems bilaterally. To evaluate the superficial system, the examination was performed in the upright position. Color-flow Doppler ultrasound and compression ultrasound were utilized. In addition, maneuvers were utilized to demonstrate reflux. FINDINGS: 1. DEEP VENOUS ULTRASOUND OF THE RIGHT LOWER EXTREMITY: Common Femoral Vein: Compressible, normal respiratory variation and augmented flow. Femoral Vein: Compressible, normal color flow and augmentation. Popliteal Vein: Compressible, normal augmentation. Deep Reflux: There is no evidence of reflux in the deep system in either the common femoral vein or the popliteal vein. There is no evidence of a Harris's cyst. 2. SUPERFICIAL ULTRASOUND WITH DOPPLER OF RIGHT LOWER EXTREMITY: GREAT SAPHENOUS VEIN: Saphenofemoral Junction: 1.0 cm; Reflux: 0 ms Proximal Thigh: 0.3 cm; Reflux: 0 ms Mid Thigh: 0.4 cm; Reflux: 0 ms Above Knee: 0.4 cm; Reflux: 0 ms At Knee: 0.4 cm; Reflux: 0 ms Below Knee: 0.3 cm; Reflux: 0 ms Mid Calf: 0.3 cm; Reflux: 2256 ms Ankle: 0.4 cm; Reflux: 0 ms DUPLICATED MEDIAL GREAT SAPHENOUS VEIN: Diameter: 0.3 cm Reflux: None DUPLICATED LATERAL GREAT SAPHENOUS VEIN: Diameter: None Imaged Reflux: NA SMALL SAPHENOUS VEIN: Proximal: 0.3 cm; Reflux: 0 ms Distal: 0.3 cm; Reflux: 0 ms VEIN OF GIACOMINI: None Imaged. PERFORATORS: Location: None significant Size: NA Reflux: NA VARICOSITIES: Location: Medial knee off the great saphenous vein and posterior calf off the small saphenous vein Size: 0.3 cm Reflux: None 3. DEEP VENOUS ULTRASOUND OF THE LEFT LOWER EXTREMITY: Common Femoral Vein: Compressible, normal respiratory variation and augmented flow. Femoral Vein: Compressible, normal color flow and augmentation. Popliteal Vein: Compressible, normal augmentation. Deep Reflux: There is no evidence of reflux in the deep system in either the common femoral vein or the popliteal vein. There is no evidence of a Harris's cyst. 4. SUPERFICIAL ULTRASOUND WITH DOPPLER OF LEFT LOWER EXTREMITY: GREAT SAPHENOUS VEIN: Saphenofemoral Junction: 0.8 cm; Reflux: 0 ms Proximal Thigh: 0.5 cm; Reflux: 1944 ms Mid Thigh: 0.2 cm; Reflux: 0 ms Above Knee: 0.2 cm; Reflux: 0 ms At Knee: 0.2 cm; Reflux: 2540 ms Below Knee: 0.2 cm; Reflux: 2476 ms Mid Calf: 0.3 cm; Reflux: 0 ms Ankle: 0.2 cm; Reflux: 0 ms DUPLICATED MEDIAL GREAT SAPHENOUS VEIN: Diameter: None Imaged Reflux: NA DUPLICATED LATERAL GREAT SAPHENOUS VEIN: Diameter: None Imaged Reflux: NA SMALL SAPHENOUS VEIN: Proximal: 0.3 cm; Reflux: 0 ms Distal: 0.2 cm; Reflux: 0 ms VEIN OF GIACOMINI: None Imaged. PERFORATORS: Location: None significant Size: NA Reflux: NA VARICOSITIES: Location: None significant Size: NA Reflux: NA US/US venous duplex LE BI IMPRESSION: Right: Focal reflux is seen within the great saphenous vein in the mid calf. No significant reflux seen otherwise. Small varicose veins as described above Left: Multiple segmental areas of severe reflux in the left great saphenous vein as described above.
== END 2022-07-05 08:20 | disposition home or self-care (01) ==
LOC: HO.US 08:19
PROVIDERS: PCP Internal Medicine; Visit Provider Surgery Vascular Surgery
DX: I83.11 Varicose veins of right lower extremity with inflammation (principal)
CPT/HCPCS: 93970

== ENCOUNTER → 2022-07-18 09:08 | Outpatient (BNVA) | payer MEDICARE, SELFPAY | PROVIDERS: PCP Internal Medicine; Visit Provider Surgery Vascular Surgery | DX: I89.0 Lymphedema, not elsewhere classified (principal); I83.11 Varicose veins of right lower extremity with inflammation | CPT/HCPCS: 99212 ==

== ENCOUNTER → 2022-08-01 08:24 | Outpatient (BNVA) | payer MEDICARE, SELFPAY | PROVIDERS: PCP Internal Medicine; Visit Provider Internal Medicine | DX: I48.20 Chronic atrial fibrillation, unspecified (principal); Z51.81 Encounter for therapeutic drug level monitoring; Z79.01 Long term (current) use of anticoagulants | CPT/HCPCS: 85610; 99211 ==

== ENCOUNTER → 2022-09-04 08:27 | Outpatient (BNVA) | payer MEDICARE, SELFPAY | PROVIDERS: PCP Internal Medicine; Visit Provider Internal Medicine | DX: I48.20 Chronic atrial fibrillation, unspecified (principal); Z79.01 Long term (current) use of anticoagulants; Z51.81 Encounter for therapeutic drug level monitoring | CPT/HCPCS: 85610; 99211 ==

== ENCOUNTER → 2022-10-09 08:37 | Outpatient (BNVA) | payer MEDICARE, SELFPAY | PROVIDERS: PCP Internal Medicine; Visit Provider Internal Medicine | DX: I48.20 Chronic atrial fibrillation, unspecified (principal); Z79.01 Long term (current) use of anticoagulants; Z51.81 Encounter for therapeutic drug level monitoring | CPT/HCPCS: 85610; 99211 ==

== ENCOUNTER → 2022-11-08 08:21 | Outpatient (BNVA) | payer MEDICARE, SELFPAY | PROVIDERS: PCP Internal Medicine; Visit Provider Internal Medicine | DX: I48.20 Chronic atrial fibrillation, unspecified (principal); Z79.01 Long term (current) use of anticoagulants; Z51.81 Encounter for therapeutic drug level monitoring | CPT/HCPCS: 85610 ==

== ENCOUNTER → 2022-12-13 08:22 | Outpatient (BNVA) | payer MEDICARE, SELFPAY | PROVIDERS: PCP Internal Medicine; Visit Provider Internal Medicine | DX: I48.20 Chronic atrial fibrillation, unspecified (principal); Z79.01 Long term (current) use of anticoagulants; Z51.81 Encounter for therapeutic drug level monitoring | CPT/HCPCS: 85610; 99211 ==

== ENCOUNTER 2023-01-24 08:31 | Outpatient (AMB) | payer MEDICARE, SELFPAY ==
--- NOTE | 2023-01-24 08:36 | MHC.OFFVISCO ---
Intake Intake Visit Reasons: Anticoagulation Allergies doxycycline [Doxycycline] Allergy (Severe, Verified 01/24/23 08:31) HIVES lisinopril Allergy (Severe, Verified 01/24/23 08:31) RASH Medication List - Last Reconciled 01/24/23 by Renuka Klein RN furosemide 20 mg PO DAILY 90 days levothyroxine 75 mcg PO QAM metoprolol succinate ER 25 mg PO DAILY simvastatin 20 mg PO BEDTIME trazodone 50 mg PO BEDTIME PRN warfarin (Jantoven) 7.5 mg See Protocol PO Q OTHER DAY warfarin (Jantoven) See Protocol One tablet by mouth every other day alternating with 7.5 mg; Nursing Note INR: 2.1- in therapeutic range Medications and supplements reviewed- pt states taking amoxicillin 500mg bid since november for skin issues No changes in health, diet, medications, or supplements, Denies any signs and symptoms of bleeding or bruising or clotting. Bleeding, bruising, clotting discussed Nutritional guidance given Dose: 7.5mg x 2, 10mg x 5 F/U INR: pt req 4 weeks- refused earlier appt Patient verbalizes understanding of instructions given Anti-Coag Initial Assessment Social Hx Patient Tobacco Use Status: Never used Tobacco alcohol intake: current Alcohol intake frequency: a few times a week Coding Level of Care Code Est Patient Level 1 Diagnoses Current use of anticoagulant therapy Z79.01 Assessment & Plan Assessment & Plan (1) Current use of anticoagulant therapy: Code(s): Z79.01 - long-term (current) use of anticoagulants Category: Medical Medications: New amoxicillin 500 mg PO BID
[2023-01-24 08:37] LABS: Prothrombin Time Whole Bld POC 25.1 sec (11.1-13.5); ~PT, ~INR - Anti Coag Clinic 2.1 (0.9-1.1)
== END 2023-01-24 08:41 | disposition home or self-care (01) ==
LOC: HO.ACS 08:31
PROVIDERS: PCP Internal Medicine; Visit Provider Internal Medicine
DX: Z79.01 Long term (current) use of anticoagulants (principal)

== ENCOUNTER → 2023-01-24 08:31 | Outpatient (BNVA) | payer MEDICARE, SELFPAY | PROVIDERS: PCP Internal Medicine; Visit Provider Internal Medicine | DX: I48.20 Chronic atrial fibrillation, unspecified (principal); Z79.01 Long term (current) use of anticoagulants; Z51.81 Encounter for therapeutic drug level monitoring | CPT/HCPCS: 85610; 99211 ==

== ENCOUNTER 2023-02-06 08:51 | Outpatient (AMB) | payer MEDICARE, SELFPAY ==
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
[2023-02-06 08:55] VITALS: BP 150/78; PULSE 66; O2SAT 98; BMI 30.7
== END 2023-02-06 09:24 | disposition home or self-care (01) ==
PROVIDERS: Visit Provider Surgery Vascular Surgery
DX: I89.0 Lymphedema, not elsewhere classified (principal)
CPT/HCPCS: 99213

== ENCOUNTER → 2023-02-06 08:51 | Outpatient (BNVA) | payer MEDICARE, SELFPAY | PROVIDERS: Visit Provider Surgery Vascular Surgery | DX: I89.0 Lymphedema, not elsewhere classified (principal) | CPT/HCPCS: 99212 ==

== ENCOUNTER 2023-02-21 08:21 | Outpatient (AMB) | payer MEDICARE, SELFPAY ==
--- NOTE | 2023-02-21 08:25 | MHC.OFFVISCO ---
Intake Intake Visit Reasons: Anticoagulation Allergies doxycycline [Doxycycline] Allergy (Severe, Verified 02/21/23 08:22) HIVES lisinopril Allergy (Severe, Verified 02/21/23 08:22) RASH Medication List - Last Reconciled 02/21/23 by Renuka Klein RN amoxicillin 500 mg PO BID furosemide 20 mg PO DAILY 90 days levothyroxine 75 mcg PO QAM metoprolol succinate ER 25 mg PO DAILY simvastatin 20 mg PO BEDTIME warfarin (Juntoven) 7.5 mg See Protocol PO Q OTHER DAY warfarin (Juntoven) See Protocol One tablet by mouth every other day alternating with 7.5 mg; Nursing Note INR: 2.4- in therapeutic range Medications and supplements reviewed- no changes No changes in health, diet, medications, or supplements, Denies any signs and symptoms of bleeding or bruising or clotting. Bleeding, bruising, clotting discussed Nutritional guidance given Dose: 7.5mg x 2, 10mg x 5 F/U INR: 4 weeks Patient verbalizes understanding of instructions given Anti-Coag Initial Assessment Social Hx Patient Tobacco Use Status: Never used Tobacco alcohol intake: current Alcohol intake frequency: a few times a week Coding Level of Care Code Est Patient Level 1 Diagnoses Current use of anticoagulant therapy Z79.01 Results AMB INR Fingerstick AMB INR Fingerstick 2.4 Last Edit by Renuka Klein RN on 02/21/23 08:26 Assessment & Plan Assessment & Plan (1) Current use of anticoagulant therapy: Code(s): Z79.01 - long-term (current) use of anticoagulants Category: Medical
[2023-02-21 08:26] LABS: Prothrombin Time Whole Bld POC 28.7 sec (11.1-13.5); ~PT, ~INR - Anti Coag Clinic 2.4 (0.9-1.1)
== END 2023-02-21 08:42 | disposition home or self-care (01) ==
LOC: HO.ACS 08:21
PROVIDERS: PCP Internal Medicine; Visit Provider Internal Medicine
DX: Z79.01 Long term (current) use of anticoagulants (principal)

== ENCOUNTER → 2023-02-21 08:21 | Outpatient (BNVA) | payer MEDICARE, SELFPAY | PROVIDERS: PCP Internal Medicine; Visit Provider Internal Medicine | DX: I48.20 Chronic atrial fibrillation, unspecified (principal); Z79.01 Long term (current) use of anticoagulants; Z51.81 Encounter for therapeutic drug level monitoring | CPT/HCPCS: 85610; 99211 ==

== ENCOUNTER 2023-03-16 08:18 | Outpatient (AMB) | payer MEDICARE, SELFPAY ==
[2023-03-16 08:25] VITALS: BP 140/76; PULSE 78; O2SAT 98; BMI 29.8
--- NOTE | 2023-03-16 08:25 | A.OFFPC_ITS ---
Vital Signs 03/16/23 08:25 Height 6 ft 0.5 in Weight 223 lb BMI 29.8 BP 140/76 H Blood Pressure Location Lt brachial Position Sitting Pulse 78 Pulse Source Pulse Oximeter Pulse Oximetry (%) 98 Oxygen Delivery Method Room Air Intake Visit Reasons: 6mth f/u Allergies doxycycline [Doxycycline] Allergy (Severe, Verified 03/16/23 08:26) HIVES lisinopril Allergy (Severe, Verified 03/16/23 08:26) RASH Medication List - Last Reconciled 03/16/23 by Royal Aguila MD amoxicillin 500 mg PO BID furosemide 20 mg PO DAILY 90 days levothyroxine 75 mcg PO QAM metoprolol succinate ER 25 mg PO DAILY simvastatin 20 mg PO BEDTIME warfarin (Juntoven) 7.5 mg See Protocol PO Q OTHER DAY warfarin (Juntoven) See Protocol One tablet by mouth every other day alternating with 7.5 mg; Tobacco use date assessed: 09/15/22 Fall risk assessment: No Falls in past year Last assessed Fall Risk: 03/16/23 Dental Screening Dental Screen Date: 03/16/23 Did you have a dental visit in the last 12 months?: No Did you have a dental problem in the last 6 months where you did not have access to dental care?: No Was dental information given to patient?: Patient has dentist HPI 6mth f/u HPI Details 82-year-old overweight male with atrial fibrillation hypertension hypothyroidism hypercholesterolemia and insomnia coming in for follow-up. Last seen in August 2022. Patient has history of lymphedema follows up with vascular surgeon patient has been advised conservative management with compression stockings. Patient comes in very problematic about the right leg lower extremity swelling but discussed about the lymphedema problem and options/conservative management still is the recommendation and discussed the different stockings can be used and the complications that it can do. Also as far as the sleeping medication patient was given a couple of medications already trazodone and Ambien but did create a lot of nightmare problems and so has not taking them and asking for to her help. Patient does have blood work done in the [place] and will hand over the results once done. [facility] Medical History Atrial fibrillation Basal cell carcinoma of skin COVID-19 virus infection Hypercholesterolemia Hyperparathyroidism Hypertension Hypothyroid Insomnia Monoclonal paraproteinemia Sick sinus syndrome Tubular adenoma of colon Surgical History History of parathyroidectomy Family History (Updated 03/16/23 @ 08:27 by Esperanza Taveras CMA) Father Past heart attack Social History Housing: House Alcohol intake: current Alcohol intake frequency: a few times a week Alcohol type: wine Patient Tobacco Use Status: Never used Tobacco e-Cigarette/Vaping Use: Never Used Second Hand Smoke Exposure: No service: Yes Current occupational status: retired Current occupational exposures/hazards: No Cognitive needs: No Hearing needs: No Vision needs: Yes Questionnaire PHQ-9 Over the last 2 weeks, how often have you been bothered by any of the following problems? 1. Little interest or pleasure in doing things: not at all 2. Feeling down, depressed, or hopeless: not at all 3. Trouble falling or staying asleep, or sleeping too much: not at all 4. Feeling tired or having little energy: not at all 5. Poor appetite or overeating: not at all 6. Feeling bad about yourself - or that you are a failure or have let yourself or your family down: not at all 7. Trouble concentrating on things, such as reading the newspaper or watching television: not at all 8. Moving or speaking so slowly that other people could have noticed. Or the opposite - being so fidgety or restless that you have been moving around a lot more than usual: not at all 9. Thoughts that you would be better off or of hurting yourself in some way: not at all Total score: 0 Depression Screening Interpretation: Negative [id number] - PHQ-9 Billing: Yes Source: Developed by Drs. Ranjit Hancock, Nancy Rosales, Franki Ribera and colleagues, with an educational fawad from [employer]. Thrive Questionnaire Date Thrive assessed: 09/15/22 AUDIT C Alcohol Use Questionnaire (AUDIT-C) 1. How often do you have a drink containing alcohol?: Never 3. How often do you have six or more drinks on one occasion?: Never Total Score: 0 Score Reviewed/Action Taken: No YAMEL-7 AMB Questionnaire YAMEL-7 Date YAMEL - 7 assessed: 09/15/22 Source: Developed by Drs. Ranjit Hancock, Nancy Rosales, Franki Ribera and colleagues, with an educational fawad from [employer]. Physical exam (Primary Care) Vital Signs: Last Vital Signs Pulse 78 03/16/23 08:25 BP 140/76 H 03/16/23 08:25 Pulse Ox 98 03/16/23 08:25 Oxygen Delivery Method Room Air 03/16/23 08:25 BMI result Body Mass Index 29.8 Tobacco/Smoking Status: Tobacco use Status Tobacco use date assessed 09/15/22 03/16/23 08:31 Patient Tobacco Use Status Never used Tobacco 03/16/23 08:31 e-Cigarette/Vaping Use Never Used 03/16/23 08:31 PHQ-9: PHQ-9 Score PHQ-9: Total score 0 03/16/23 08:31 Depression Screening Interpretation: Negative Thrive Assessment: Date of Thrive Assessment Date Thrive assessed 09/15/22 03/16/23 08:31 Const General: alert; No acute distress Eyes Conjunctivae: conjunctivae normal Resp Auscultation: clear to auscultation bilaterally Cardio Rate: regular rate Rhythm: regular rhythm GI Inspection: Yes normal to inspection Extrem General: Yes normal to inspection and No edema Assessment and Plan Assessment & Plan (1) Atrial fibrillation: Comment: Pulmonary vein isolation, ablation, Echo global hypokinesis 45-50% ejection frac tion aorta 4 cm Code(s): I48.91 - Unspecified atrial fibrillation Qualifiers: Atrial fibrillation type: paroxysmal Qualified Code(s): I48.0 - Paroxysmal atrial fibrillation Plan: Continue with anticoagulation with Coumadin (2) Hypothyroid: Code(s): E03.9 - Hypothyroidism, unspecified Qualifiers: Hypothyroidism type: acquired Qualified Code(s): E03.9 - Hypothyroidism, unspecified Plan: Continue with thyroid medication but will need blood work done (3) Hypertension: Code(s): I10 - Essential (primary) hypertension Qualifiers: Hypertension type: essential hypertension Qualified Code(s): I10 - Ess ential (primary) hypertension Plan: Continue with blood pressure medication. Decrease salt intake and exercise patient takes metoprolol 25 mg once a day (4) Hypercholesterolemia: Comment: 2003 Code(s): E78.00 - Pure hypercholesterolemia, unspecified Plan: Avoid fried foods, chicken skin, eggs, butter margarine, pastries and meat. Be it pork or beef they have a lot of cholesterol LDL goal of less than 130 and triglyceride of less than 150. Patient is on simvastatin 20 blood work needs to be done (5) Sick sinus syndrome: Comment: 2008, dual-chamber pacemaker Dr. Damon, pacemaker placement May 2020 Code(s): I49.5 - Sick sinus syndrome Plan: Continued follow-up with cardiology (6) Ascending aorta dilatation: Comment: April 2020 4 cm February 2022 normal Code(s): I77.810 - Thoracic aortic ectasia Plan: February 2022 echocardiogram reveals normal results (7) Lymphedema: Code(s): I89.0 - Lymphedema, not elsewhere classified Plan: Patient follows up with vascular surgeon and conservative management. When sitting down elevate the legs, exercise, and support stockings Orders: Orders B Type Natriuretic Peptide Today E78.00 - Pure hypercholesterolemia, unspecified Medications: New doxepin 3 mg PO BEDTIME PRN 30 tabs 0RF sleep G47.00 - Insomnia, unspecified Coding Level of Care Code Est Pt Level 4 (23313) Diagnoses Paroxysmal atrial fibrillation I48.0 Atrial fibrillation type: paroxysmal Acquired hypothyroidism E03.9 Hypothyroidism type: acquired Essential hypertension I10 Hypertension type: essential hypertension Hypercholesterolemia E78.00 Sick sinus syndrome I49.5 Ascending aorta dilatation I77.810 Lymphedema I89.0
== END 2023-03-16 09:01 | disposition home or self-care (01) ==
PROVIDERS: Visit Provider Internal Medicine
DX: I48.0 Paroxysmal atrial fibrillation (principal); I49.5 Sick sinus syndrome; I77.810 Thoracic aortic ectasia; E03.9 Hypothyroidism, unspecified
CPT/HCPCS: 99214

== ENCOUNTER 2023-03-22 08:20 | Outpatient (AMB) | payer MEDICARE, SELFPAY ==
--- NOTE | 2023-03-22 08:35 | MHC.OFFVISCO ---
Intake Intake Visit Reasons: Anticoagulation Allergies doxycycline [Doxycycline] Allergy (Severe, Verified 03/22/23 08:22) HIVES lisinopril Allergy (Severe, Verified 03/22/23 08:22) RASH Medication List - Last Reconciled 03/22/23 by Josefa Paredes RN amoxicillin 500 mg PO BID doxepin 3 mg PO BEDTIME PRN furosemide 20 mg PO DAILY 90 days levothyroxine 75 mcg PO QAM metoprolol succinate ER 25 mg PO DAILY simvastatin 20 mg PO BEDTIME warfarin (Juntoven) 7.5 mg See Protocol PO Q OTHER DAY warfarin (Juntoven) See Protocol One tablet by mouth every other day alternating with 7.5 mg; Nursing Note INR: 2.0 in therapeutic range Medications and supplements reviewed No changes in health, diet, medications, or supplements, Denies any signs and symptoms of bleeding or bruising or clotting. Bleeding, bruising, clotting discussed Nutritional guidance given Dose: KEEP SAME DOSE 7.5MG X 2 DAYS 10MG X 5 DAYS F/U INR: 1 MONTH Patient verbalizes understanding of instructions given Anti-Coag Initial Assessment Social Hx Patient Tobacco Use Status: Never used Tobacco alcohol intake: current Alcohol intake frequency: a few times a week Coding Level of Care Code Est Patient Level 1 Diagnoses Current use of anticoagulant therapy Z79.01 Assessment & Plan Assessment & Plan (1) Current use of anticoagulant therapy: Code(s): Z79.01 - penitentiary (current) use of anticoagulants Category: Medical
== END 2023-03-22 08:37 | disposition home or self-care (01) ==
LOC: HO.ACS 08:20
PROVIDERS: PCP Internal Medicine; Visit Provider Internal Medicine
DX: Z79.01 Long term (current) use of anticoagulants (principal)

== ENCOUNTER → 2023-03-22 08:20 | Outpatient (BNVA) | payer MEDICARE, SELFPAY | PROVIDERS: PCP Internal Medicine; Visit Provider Internal Medicine | DX: I48.20 Chronic atrial fibrillation, unspecified (principal); Z51.81 Encounter for therapeutic drug level monitoring; Z79.01 Long term (current) use of anticoagulants | CPT/HCPCS: 85610; 99211 ==

== ENCOUNTER 2023-04-19 08:39 | Outpatient (AMB) | payer MEDICARE, SELFPAY ==
[2023-04-19 08:46] LABS: Prothrombin Time Whole Bld POC 26.9 sec (11.1-13.5); ~PT, ~INR - Anti Coag Clinic 2.2 (0.9-1.1)
--- NOTE | 2023-04-19 08:57 | MHC.OFFVISCO ---
Intake Intake Visit Reasons: Anticoagulation Allergies doxycycline [Doxycycline] Allergy (Severe, Verified 04/19/23 08:40) HIVES lisinopril Allergy (Severe, Verified 04/19/23 08:40) RASH Medication List - Last Reconciled 04/19/23 by Josefa Paredes RN amoxicillin 500 mg PO BID doxepin 3 mg PO BEDTIME PRN furosemide 20 mg PO DAILY 90 days levothyroxine 75 mcg PO QAM metoprolol succinate ER 25 mg PO DAILY simvastatin 20 mg PO BEDTIME warfarin (Juntoven) 7.5 mg See Protocol PO Q OTHER DAY warfarin (Jantoven) See Protocol One tablet by mouth every other day alternating with 7.5 mg; Nursing Note INR: 2.2 in therapeutic range- pt would like his range nearer to 2.5 - will increase dose gradually due to recent season change and holidays Medications and supplements reviewed pt states he does not have enough warfarin for each month due to warfarin dose increase; msg sent to PCP with current dose with possible increase to 10mg daily Denies any signs and symptoms of bleeding or bruising or clotting. Bleeding, bruising, clotting discussed Nutritional guidance given Dose: increase to 10mg x 6 days/ 7.5mg x 1 day F/U INR: 1 month per pt request Patient verbalizes understanding of instructions given Anti-Coag Initial Assessment Social Hx Patient Tobacco Use Status: Never used Tobacco alcohol intake: current Alcohol intake frequency: a few times a week Coding Level of Care Code Est Patient Level 1 Diagnoses Current use of anticoagulant therapy Z79.01 Results AMB INR Fingerstick AMB INR Fingerstick 2.2 Last Edit by Josefa Paredes RN on 04/19/23 08:50 MANUAL ENTRY DELAYED INTERFACING Assessment & Plan Assessment & Plan (1) Current use of anticoagulant therapy: Code(s): Z79.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 Category: Medical Medications: Changed From warfarin (Juntoven) 7.5 mg See Protocol PO Q OTHER DAY 45 caps 3RF I82.409 - Acute embolism and thrombosis of unspecified deep veins of unspecified lower extremity To warfarin (Juntoven) See Protocol 7.5MG X 1 DAY/ 10MG X 6 DAYS 45 caps 3RF I82.409 - Acute embolism and thrombosis of unspecified deep veins of unspecified lower extremity From warfarin (Juntoven) See Protocol One tablet by mouth every other day alternating with 7.5 mg; 45 caps 3RF I48.91 - Unspecified atrial fibrillation To warfarin (Jantoven) See Protocol 10 mg X 6-7 DAYS/ WEEK WARFARIN DOSE PER INR 45 caps 3RF I48.91 - Unspecified atrial fibrillation
== END 2023-04-19 09:00 | disposition home or self-care (01) ==
LOC: HO.ACS 08:39
PROVIDERS: PCP Internal Medicine; Visit Provider Internal Medicine
DX: Z79.01 Long term (current) use of anticoagulants (principal)

== ENCOUNTER → 2023-04-19 08:39 | Outpatient (BNVA) | payer MEDICARE, SELFPAY | PROVIDERS: PCP Internal Medicine; Visit Provider Internal Medicine | DX: I48.20 Chronic atrial fibrillation, unspecified (principal); Z79.01 Long term (current) use of anticoagulants; Z51.81 Encounter for therapeutic drug level monitoring | CPT/HCPCS: 85610; 99211 ==

== ENCOUNTER 2023-05-24 08:22 | Outpatient (AMB) | payer MEDICARE, SELFPAY ==
--- NOTE | 2023-05-24 08:27 | MHC.OFFVISCO ---
Intake Intake Visit Reasons: Anticoagulation Allergies doxycycline [Doxycycline] Allergy (Severe, Verified 05/24/23 08:23) HIVES lisinopril Allergy (Severe, Verified 05/24/23 08:23) RASH Medication List - Last Reconciled 05/24/23 by Renuka Klein RN amoxicillin 500 mg PO BID doxepin 3 mg PO BEDTIME PRN furosemide 20 mg PO DAILY 90 days levothyroxine 75 mcg PO QAM metoprolol succinate ER 25 mg PO DAILY simvastatin 20 mg PO BEDTIME warfarin (Jun) See Protocol 10 mg X 6-7 DAYS/ WEEK WARFARIN DOSE PER INR warfarin (Jun) See Protocol 7.5MG X 1 DAY/ 10MG X 6 DAYS Nursing Note INR: 2.3-in therapeutic range of 2-3 Medications and supplements reviewed- no changes No changes in health, diet, medications, or supplements, Denies any signs and symptoms of bleeding or bruising or clotting. Bleeding, bruising, clotting discussed Nutritional guidance given Dose: 7.5mg x 2, 10mg x 5 pt insists he has been taking 7.5mg every mon and fri, 10mg the rest of the week F/U INR: pt req 5 weeks Patient verbalizes understanding of instructions given Anti-Coag Initial Assessment Social Hx Patient Tobacco Use Status: Never used Tobacco alcohol intake: current Alcohol intake frequency: a few times a week Coding Level of Care Code Est Patient Level 1 Diagnoses Current use of anticoagulant therapy Z79.01 Results AMB INR Fingerstick AMB INR Fingerstick 2.3 Last Edit by Renuka Klein RN on 05/24/23 08:29 Assessment & Plan Assessment & Plan (1) Current use of anticoagulant therapy: Code(s): Z79.01 - assisted (current) use of anticoagulants Category: Medical
[2023-05-24 08:29] LABS: Prothrombin Time Whole Bld POC 28.2 sec (11.1-13.5); ~PT, ~INR - Anti Coag Clinic 2.3 (0.9-1.1)
== END 2023-05-24 08:34 | disposition home or self-care (01) ==
LOC: HO.ACS 08:22
PROVIDERS: PCP Internal Medicine; Visit Provider Internal Medicine
DX: Z79.01 Long term (current) use of anticoagulants (principal)

== ENCOUNTER → 2023-05-24 08:22 | Outpatient (BNVA) | payer MEDICARE, SELFPAY | PROVIDERS: PCP Internal Medicine; Visit Provider Internal Medicine | DX: I48.20 Chronic atrial fibrillation, unspecified (principal); Z79.01 Long term (current) use of anticoagulants; Z51.81 Encounter for therapeutic drug level monitoring | CPT/HCPCS: 85610; 99211 ==

== ENCOUNTER 2023-06-28 08:28 | Outpatient (AMB) | payer MEDICARE, SELFPAY ==
--- NOTE | 2023-06-28 08:43 | MHC.OFFVISCO ---
Intake Intake Visit Reasons: Anticoagulation Allergies doxycycline [Doxycycline] Allergy (Severe, Verified 06/28/23 08:37) HIVES lisinopril Allergy (Severe, Verified 06/28/23 08:37) RASH Medication List - Last Reconciled 06/28/23 by Renuka Klein RN amoxicillin 500 mg PO BID doxepin 3 mg PO BEDTIME PRN furosemide 20 mg PO DAILY 90 days levothyroxine 75 mcg PO QAM metoprolol succinate ER 25 mg PO DAILY simvastatin 20 mg PO BEDTIME warfarin (Jun) See Protocol 10 mg X 6-7 DAYS/ WEEK WARFARIN DOSE PER INR warfarin () See Protocol 7.5MG X 1 DAY/ 10MG X 6 DAYS Nursing Note INR: 2.4- in therapeutic range of 2-3 Medications and supplements reviewed - no changes No changes in health, diet, medications, or supplements, Denies any signs and symptoms of bleeding or bruising or clotting. Bleeding, bruising, clotting discussed Nutritional guidance given Dose: 7.5mg x 2, 10mg x 5 F/U INR: pt req 5 weeks Patient verbalizes understanding of instructions given Anti-Coag Initial Assessment Social Hx Patient Tobacco Use Status: Never used Tobacco alcohol intake: current Alcohol intake frequency: a few times a week Coding Level of Care Code Est Patient Level 1 Diagnoses Current use of anticoagulant therapy Z79.01 Results AMB INR Fingerstick AMB INR Fingerstick 2.4 Last Edit by Renuka Klein RN on 06/28/23 08:45 Assessment & Plan Assessment & Plan (1) Current use of anticoagulant therapy: Code(s): Z79.01 - USP (current) use of anticoagulants Category: Medical
[2023-06-29 08:52] LABS: Prothrombin Time Whole Bld POC 28.3 sec (11.1-13.5); ~PT, ~INR - Anti Coag Clinic 2.4 (0.9-1.1)
== END 2023-06-28 09:13 | disposition home or self-care (01) ==
LOC: HO.ACS 08:28
PROVIDERS: PCP Internal Medicine; Visit Provider Internal Medicine
DX: Z79.01 Long term (current) use of anticoagulants (principal)

== ENCOUNTER → 2023-06-28 08:28 | Outpatient (BNVA) | payer MEDICARE, SELFPAY | PROVIDERS: PCP Internal Medicine; Visit Provider Internal Medicine | DX: I48.20 Chronic atrial fibrillation, unspecified (principal); Z79.01 Long term (current) use of anticoagulants; Z51.81 Encounter for therapeutic drug level monitoring | CPT/HCPCS: 85610; 99211 ==

== ENCOUNTER 2023-08-02 08:22 | Outpatient (AMB) | payer MEDICARE, SELFPAY ==
[2023-08-02 08:43] LABS: Prothrombin Time Whole Bld POC 26.5 sec (11.1-13.5); ~PT, ~INR - Anti Coag Clinic 2.2 (0.9-1.1)
--- NOTE | 2023-08-02 08:45 | MHC.OFFVISCO ---
Intake Intake Visit Reasons: Anticoagulation Allergies doxycycline [Doxycycline] Allergy (Severe, Verified 08/02/23 08:38) HIVES lisinopril Allergy (Severe, Verified 08/02/23 08:38) RASH Medication List - Last Reconciled 08/02/23 by Roxanne Banegas RN amoxicillin 500 mg PO BID doxepin 3 mg PO BEDTIME PRN furosemide 20 mg PO DAILY 90 days levothyroxine 75 mcg PO QAM metoprolol succinate ER 25 mg PO DAILY simvastatin 20 mg PO BEDTIME warfarin (Juntoven) See Protocol 10 mg X 6-7 DAYS/ WEEK WARFARIN DOSE PER INR warfarin (Junto) See Protocol 7.5MG X 1 DAY/ 10MG X 6 DAYS Nursing Note Amb to [facility] feeling well, noted bandaid to left dorsal aspect of hand sts he had skin cancer removed about 3 weeks ago , no hold for warfarin Medications and supplements reviewed No other changes in health, diet, medications, or supplements Denies any unusual signs and symptoms of bruising, bleeding Denies any new Chest pain, SOB, or clotting INR: 2.2 in therapeutic range Nutritional guidance given: balance greens and reds in diet, be consistent Dose: continue usual dosing;7.5mg x 2 days and 10mg x 5 days F/U INR: 5 weeks Patient verbalizes understanding of instructions given with accurate read back/ teach back of dosing Anti-Coag Initial Assessment Social Hx Patient Tobacco Use Status: Never used Tobacco alcohol intake: current Alcohol intake frequency: a few times a week Questionnaires HAS-BLED Does the patient had uncontrolled Hypertension?: No Does the patient have renal disease?: No Does the patient have liver disease?: No Does the patient have a history of stroke?: No Has the patient had major bleeding or predisposition to bleeding?: No Does the patient have labile INRs?: No Is the patient over 65 years of age?: Yes Is the patient on medications that gives them a predisposition to bleeding?: Yes Does the patient use alcohol?: Yes HAS-BLED Score: 3 CHADSVASC Age: 75 or over Gender: Male Does the patient have a history of CHF?: No Does the patient have a history of Hypertension?: Yes Does the patient have a history of Stroke/TIA/Thromboembolism?: No Does the patient have a history of Vascular Disease (prior OK, PAD or aortic plaque)?: Yes Does the patient have a history of Diabetes?: No CHADS VACS Score: 4 Valentina Prediction Score Rsk VTE Active Cancer: No Previous VTE, excluding superficial vein thrombosis: No Reduced mobility: No Already known Thrombophilic Condition: Yes With-in last month Trauma and/or Surgery: No Elderly 70 year or older: Yes Heart and/or Respiratory Failure: No Acute Myocardial infarction and/or Ischemic Stroke: No Acute Infection and/or Rheumatologic Disorder: No Obesity (BMI 30 or greater): No Ongoing Hormonal Treatment: No Score: 4 Valentina Score less than 4; Low Risk of VTE Valentina Score 4 or greater; High Risk of VTE Coding Level of Care Code Est Patient Level 1 Diagnoses Current use of anticoagulant therapy Z79.01 Time Spent (min) 15 Assessment & Plan Assessment & Plan (1) Current use of anticoagulant therapy: Code(s): Z79.01 - longterm (current) use of anticoagulants Category: Medical
== END 2023-08-02 08:55 | disposition home or self-care (01) ==
LOC: HO.ACS 08:22
PROVIDERS: PCP Internal Medicine; Visit Provider Internal Medicine
DX: Z79.01 Long term (current) use of anticoagulants (principal)

== ENCOUNTER → 2023-08-02 08:22 | Outpatient (BNVA) | payer MEDICARE, SELFPAY | PROVIDERS: PCP Internal Medicine; Visit Provider Internal Medicine | DX: I48.20 Chronic atrial fibrillation, unspecified (principal); Z79.01 Long term (current) use of anticoagulants; Z51.81 Encounter for therapeutic drug level monitoring | CPT/HCPCS: 85610; 99211 ==

== ENCOUNTER 2023-09-06 08:29 | Outpatient (AMB) | payer MEDICARE, SELFPAY ==
[2023-09-06 08:37] LABS: Prothrombin Time Whole Bld POC 32.6 sec (11.1-13.5); ~PT, ~INR - Anti Coag Clinic 2.7 (0.9-1.1)
--- NOTE | 2023-09-06 08:42 | MHC.OFFVISCO ---
Intake Intake Visit Reasons: Anticoagulation Allergies doxycycline [Doxycycline] Allergy (Severe, Verified 09/06/23 08:33) HIVES lisinopril Allergy (Severe, Verified 09/06/23 08:33) RASH Medication List - Last Reconciled 09/06/23 by Josefa Paredes RN amoxicillin 500 mg PO BID doxepin 3 mg PO BEDTIME PRN furosemide 20 mg PO DAILY 90 days levothyroxine 75 mcg PO QAM metoprolol succinate ER 25 mg PO DAILY simvastatin 20 mg PO BEDTIME warfarin () See Protocol 10 mg X 6-7 DAYS/ WEEK WARFARIN DOSE PER INR warfarin () See Protocol 7.5MG X 1 DAY/ 10MG X 6 DAYS Nursing Note INR: 2.7 in therapeutic range Medications and supplements reviewed No changes in health, diet, medications, or supplements, Denies any signs and symptoms of bleeding or bruising or clotting. 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
== END 2023-09-06 08:43 | disposition home or self-care (01) ==
LOC: HO.ACS 08:29
PROVIDERS: PCP Internal Medicine; Visit Provider Internal Medicine
DX: Z79.01 Long term (current) use of anticoagulants (principal)

== ENCOUNTER → 2023-09-06 08:29 | Outpatient (BNVA) | payer MEDICARE, SELFPAY | PROVIDERS: PCP Internal Medicine; Visit Provider Internal Medicine | DX: I48.20 Chronic atrial fibrillation, unspecified (principal); Z79.01 Long term (current) use of anticoagulants; Z51.81 Encounter for therapeutic drug level monitoring | CPT/HCPCS: 85610; 99211 ==

== ENCOUNTER 2023-09-26 13:51 | Outpatient (AMB) | payer MEDICARE, SELFPAY ==
--- NOTE | 2023-09-26 13:55 | A.OFFVIS_ITS ---
Intake Vital Signs 09/26/23 13:58 Height 5 ft 11 in Weight 225 lb 4 oz BMI 31.4 BP 120/68 Blood Pressure Location Lt brachial Position Sitting Pulse 66 Pulse Source Pulse Oximeter Pulse Oximetry (%) 97 Oxygen Delivery Method Room Air Intake Visit Reasons: SWV Intake Note: Patient is here for an Annual Wellness Visit. Senior Engineering Specialist Required: No Care Aid: Care Aid offered & declined Accompanied by: Self / Same As Patient Allergies doxycycline [Doxycycline] Allergy (Severe, Verified 09/26/23 14:51) HIVES lisinopril Allergy (Severe, Verified 09/26/23 14:51) RASH Medication List - Last Reconciled 09/26/23 by Truman Nettles MD amoxicillin 500 mg PO BID doxepin 3 mg PO BEDTIME PRN furosemide 20 mg PO DAILY 90 days levothyroxine 75 mcg PO QAM metoprolol succinate ER 25 mg PO DAILY simvastatin 20 mg PO BEDTIME warfarin (Juntoven) See Protocol 10 mg X 6-7 DAYS/ WEEK WARFARIN DOSE PER INR warfarin (Juntoven) See Protocol 7.5MG X 1 DAY/ 10MG X 6 DAYS HPI SWV HPI Details 82-year-old male presents to the office requesting an annual wellness visit. In addition, patient is complaining of choking on swallowing. This happens on a few occasions. He is also complaining of postnasal drip. No weight loss. [facility] Medical History Insomnia COVID-19 virus infection Hyperparathyroidism Basal cell carcinoma of skin Tubular adenoma of colon Sick sinus syndrome Hypercholesterolemia Hypothyroid Atrial fibrillation Monoclonal paraproteinemia Hypertension Surgical History History of parathyroidectomy Family History Father Past heart attack Social History (Updated 09/26/23 @ 14:04 by ANJU Hernandez) Housing: House Alcohol intake: current Alcohol intake frequency: holidays/special occasions only Alcohol type: wine Patient Tobacco Use Status: Never used Tobacco e-Cigarette/Vaping Use: Never Used Second Hand Smoke Exposure: No service: Yes Current occupational status: retired Current occupational exposures/hazards: No Cognitive needs: No Hearing needs: No Vision needs: Yes Questionnaire Medicare Wellness Checkup What is your age?: 80 or older What gender do you identify with?: male During the past 4 weeks, how much have you been bothered by emotional problems such as feeling anxious, depressed, irritable, sad or downhearted, and blue?: not at all During the past 4 weeks, has your physical & emotional health limited your social activities with family, friends, neighbors, or groups?: not at all During the past 4 weeks, how much bodily pain have you generally had?: no pain During the past 4 weeks, was someone available to help you if you needed & wanted help?: no, not at all During the past 4 weeks, what was the hardest physical activity you could do for at least 2 minutes?: moderate Can you get to places out of walking distance without help? (For eg., can you travel alone on buses, taxis or drive your car?): Yes Can you go shopping for groceries or clothes without someone's help?: Yes Can you prepare your own meals?: Yes Can you do your housework without help?: Yes Because of any health problems, do you need the help of another person with your personal care needs such as eating, bathing, dressing or getting around the house?: No Can you handle your own money without help?: Yes During the past 4 weeks, how would you rate your health in general?: good During the past 4 weeks how have things been going for you?: very well; could hardly better Are you having difficulties driving your car?: not applicable, I don't use a car Do you always fasten your seat belt when you are in a car?: yes, usually During past 4 weeks, have you been bothered by the following: never: Falling or dizzy when standing up, Sexual problems?, Trouble eating well?, Teeth or denture problems?, Problems using the telephone? and Tiredness or fatigue? Have you fallen 2 or more times in the past year?: No Are you afraid of falling?: No Are you a smoker?: no During the past 4 weeks, how many drinks of wine, beer, or other alcoholic beverages did you have?: 1 drink or less per week Do you exercise for about 20 minutes 3 or more times a week?: yes, all the time Have you been given information to help with the following?: no: Hazards in your house that might hurt you? and no: Keeping track of your medications? How often do you have trouble taking medicines the way you have been told to take them?: I always take medicine as prescribed How confident are you that you can control & manage most of your health problems?: very confident What is your race?: White Mini Mental State Exam (MMSE) Orientation What is the (year) (season) (date) (day) (month)?: year, season, date and day Where are we (state) (county) (town or city) (hospital) (floor)?: state Score Score: 5 Activity of Daily Living Bathing - sponge bath, tub bath or shower: receives no assistance (gets in/out by self, if usual bathing means Dressing - getting clothes from closets & drawers, including inner/outer garments & fasteners.: gets clothes & gets completely dressed without help Toileting - going to the 'toilet room' for urine/bowel elimination & cleaning self/arranging clothes: goes to toilet room, cleans self, arranges clothes without help Transfer: moves in & out of bed and chair without help (may use support object) Continence: controls urination/bowel movements completely by self Feeding: feeds self without help Total Score: 0 Information obtained from: patient Using telephone: independent Traveling: independent Shopping: independent Preparing meals: independent Housework: independent Taking medicine: independent Managing money: independent PHQ-9 Over the last 2 weeks, how often have you been bothered by any of the following problems? 1. Little interest or pleasure in doing things: not at all 2. Feeling down, depressed, or hopeless: not at all 3. Trouble falling or staying asleep, or sleeping too much: not at all 4. Feeling tired or having little energy: not at all 5. Poor appetite or overeating: not at all 6. Feeling bad about yourself - or that you are a failure or have let yourself or your family down: not at all 7. Trouble concentrating on things, such as reading the newspaper or watching television: not at all 8. Moving or speaking so slowly that other people could have noticed. Or the opposite - being so fidgety or restless that you have been moving around a lot more than usual: not at all 9. Thoughts that you would be better off or of hurting yourself in some way: not at all Total score: 0 Depression Screening Interpretation: Negative Depression Screening Done: Yes Source: Developed by Drs. Ranjit Hancock, Nancy Rosales, Franki Ribera and colleagues, with an educational fawad from [employer]. Thrive Questionnaire Date Thrive assessed: 09/26/23 I am a: Patient What is your living situation today?: I have a steady place to live Within the past 12 months, did the food you bought not last and you didn't have the money to get more?: Never true Within the past 12 months, did you worry whether your food would run out before you got money to buy more?: Never true Do you have trouble paying for medicines?: No Do you have trouble getting transportation to medical appointments?: No Do you have trouble paying your heating and electricity bill?: No Do you have trouble taking care of your child, family member or friend?: No Do you have trouble with day-to-day activities such as bathing, preparing meals, shopping, managing finances, etc.?: No Are you currently unemployed and looking for a job?: No Are you interested in more education?: No Currently or been in a relationship where the following occur: no concerns reported THRIVE Score: 0 YAMEL-7 AMB Questionnaire YAMEL-7 Date YAMEL - 7 assessed: 09/26/23 Feeling nervous, anxious, or on edge: 0 = Not at all Not being able to stop or control worryin = Not at all Worrying too much about different things: 0 = Not at all Trouble relaxin = Not at all Being so restless that it is hard to sit still: 0 = Not at all Becoming easily annoyed or irritable: 0 = Not at all Feeling afraid as if something awful might happen: 0 = Not at all Total YAMEL-7 score (0-4 normal; 5-9 mild; 10-14 moderate; 15-21 severe): 0 Source: Developed by Drs. Ranjit Hancock, Nancy Rosales, Franki Ribera and colleagues, with an educational fawad from [employer]. AUDIT C Alcohol Use Questionnaire (AUDIT-C) 1. How often do you have a drink containing alcohol?: Never Total Score: 0 Physical Exam Vital Signs: Last Vital Signs Pulse 66 09/26/23 13:58 BP 120/68 09/26/23 13:58 Pulse Ox 97 09/26/23 13:58 Oxygen Delivery Method Room Air 09/26/23 13:58 BMI result Body Mass Index 31.4 Balance: Normal Romberg: Negative Tandem Walk: Able to Walk and Turn: Able to Rise from sit to stand: Able to Hearing Whisper test: Pass Const General: cooperative and healthy appearing Nutritional Appearance: well nourished Orientation/consciousness: patient oriented x3 Limitations: no limitations HEENT Head: Yes normal to inspection Eyes General: appearance normal, both eyes and all related structures Neck Neck: Yes normal visual inspection Chest Chest palpation & inspection: normal palpation of entire chest wall Resp Effort & Inspection: normal respiratory effort Neuro General: patient oriented x3 Assessment & Plan Assessment & Plan (1) Adult general medical exam: Code(s): Z00.00 - Encounter for general adult medical examination without abnormal find ings Plan: Blood work reviewed. (2) Ascending aorta dilatation: Comment: April 2020 4 cm February 2022 normal Code(s): I77.810 - Thoracic aortic ectasia Plan: Condition is stable. (3) Sick sinus syndrome: Comment: 2008, dual-chamber pacemaker Dr. Damon, pacemaker placement May 2020 Code(s): I49.5 - Sick sinus syndrome Plan: Condition is stable. (4) Hypercholesterolemia: Comment: 2003 Code(s): E78.00 - Pure hypercholesterolemia, unspecified Plan: Condition is stable. (5) Atrial fibrillation: Comment: Pulmonary vein isolation, ablation, Echo global hypokinesis 45-50% ejection fraction aorta 4 cm Code(s): I48.91 - Unspecified atrial fibrillation Qualifiers: Atrial fibrillation type: paroxysmal Qualified Code(s): I48.0 - Paroxysmal atrial fibrillation Plan: Condition is stable (6) Hypertension: Code(s): I10 - Essential (primary) hypertension Qualifiers: Hypertension type: essential hypertension Qualified Code(s): I10 - Essential (primary) hypertension Plan: Condition is stable (7) Dysphagia: Code(s): R13.10 - Dysphagia, unspecified Plan: Flonase has been added to the regimen. A swallowing eval has been suggested. Patient was advised to follow-up with his regular primary care provider. Medications: Refilled levothyroxine 75 mcg PO QAM 90 tabs 3RF E03.9 - Hypothyroidism, unspecified metoprolol succinate ER 25 mg PO DAILY 90 tabs 3RF simvastatin 20 mg PO BEDTIME 90 tabs 3RF E78.00 - Pure hypercholesterolemia, unspecified Quality Reporting (2019) Depression/Bipolar (159/160/161/177) PHQ-9: Total score: 0 Coding Level of Care Code Medicare Subsequent (G0439) Est Pt Level 3 (84429) Diagnoses Adult general medical exam Z00.00 Ascending aorta dilatation I77.810 Sick sinus syndrome I49.5 Hypercholesterolemia E78.00 Paroxysmal atrial fibrillation I48.0 Atrial fibrillation type: paroxysmal Essential hypertension I10 Hypertension type: essential hypertension Dysphagia R13.10
[2023-09-26 13:58] VITALS: BP 120/68; PULSE 66; O2SAT 97; BMI 31.4
== END 2023-09-26 17:21 | disposition home or self-care (01) ==
PROVIDERS: PCP Internal Medicine; Visit Provider Internal Medicine
DX: Z00.00 Encounter for general adult medical examination without abnormal findings (principal); I77.810 Thoracic aortic ectasia; I49.5 Sick sinus syndrome; I48.0 Paroxysmal atrial fibrillation; E78.00 Pure hypercholesterolemia, unspecified; I10 Essential (primary) hypertension; R13.10 Dysphagia, unspecified
CPT/HCPCS: G0439

== ENCOUNTER 2023-10-04 08:28 | Outpatient (AMB) | payer MEDICARE, SELFPAY ==
[2023-10-04 08:38] LABS: Prothrombin Time Whole Bld POC 28.4 sec (11.1-13.5); ~PT, ~INR - Anti Coag Clinic 2.4 (0.9-1.1)
--- NOTE | 2023-10-04 08:45 | MHC.OFFVISCO ---
Intake Intake Visit Reasons: Anticoagulation Allergies doxycycline [Doxycycline] Allergy (Severe, Verified 10/04/23 08:32) HIVES lisinopril Allergy (Severe, Verified 10/04/23 08:32) RASH Medication List - Last Reconciled 10/04/23 by Nahed Callejas RN amoxicillin 500 mg PO BID doxepin 3 mg PO BEDTIME PRN fluticasone propionate 50 mcg/actuation (Flonase Allergy Relief) 1 spray intranasal DAILY furosemide 20 mg PO DAILY 90 days levothyroxine 75 mcg PO QAM metoprolol succinate ER 25 mg PO DAILY simvastatin 20 mg PO BEDTIME warfarin (Juntoven) See Protocol 10 mg X 6-7 DAYS/ WEEK WARFARIN DOSE PER INR warfarin (Juntoven) See Protocol 7.5MG X 1 DAY/ 10MG X 6 DAYS Nursing Note NO CP,SOB,DIET/MED CHANGES,FALLS OR SX OF BLEEDING. CONTINUE PRESENT DOSE AND FOLLOW-UP IN 5 WEEKS. GOOD UNDERSTANDING OF DOSING INSTR. Anti-Coag Initial Assessment Social Hx Patient Tobacco Use Status: Never used Tobacco alcohol intake: current Alcohol intake frequency: holidays/special occasions only Coding Level of Care Code Est Patient Level 1 Diagnoses Current use of anticoagulant therapy Z79.01 Assessment & Plan Assessment & Plan (1) Current use of anticoagulant therapy: Code(s): Z79.01 - intermediate card tender (current) use of anticoagulants Category: Medical
== END 2023-10-04 08:51 | disposition home or self-care (01) ==
LOC: HO.ACS 08:28
PROVIDERS: PCP Internal Medicine; Visit Provider Internal Medicine
DX: Z79.01 Long term (current) use of anticoagulants (principal)

== ENCOUNTER → 2023-10-04 08:28 | Outpatient (BNVA) | payer MEDICARE, SELFPAY | PROVIDERS: PCP Internal Medicine; Visit Provider Internal Medicine | DX: I48.20 Chronic atrial fibrillation, unspecified (principal); Z79.01 Long term (current) use of anticoagulants; Z51.81 Encounter for therapeutic drug level monitoring | CPT/HCPCS: 85610; 99211 ==

== ENCOUNTER 2023-11-08 08:27 | Outpatient (AMB) | payer MEDICARE, SELFPAY ==
--- NOTE | 2023-11-08 08:46 | MHC.OFFVISCO ---
Intake Intake Visit Reasons: Anticoagulation Allergies doxycycline [Doxycycline] Allergy (Severe, Verified 11/08/23 08:36) HIVES lisinopril Allergy (Severe, Verified 11/08/23 08:36) RASH Medication List - Last Reconciled 11/08/23 by Renuka Klein, RN doxepin 3 mg PO BEDTIME PRN fluticasone propionate 50 mcg/actuation (Flonase Allergy Relief) 1 spray intranasal DAILY furosemide 20 mg PO DAILY 90 days levothyroxine 75 mcg PO QAM metoprolol succinate ER 25 mg PO DAILY simvastatin 20 mg PO BEDTIME warfarin (Juntoven) See Protocol 10 mg X 6-7 DAYS/ WEEK WARFARIN DOSE PER INR warfarin (Junto) See Protocol 7.5MG X 1 DAY/ 10MG X 6 DAYS Nursing Note INR 1.2-?? out of therapeutic range of 2-3 Medications and supplements reviewed Patient status: s/p [facility] proc on 11/05/23 left hand, 2 day pre and post hold of warfarin, restarted today [facility] proc 10/22/23 neck with hold of warfarin one day pre, and day of, restarted 10/24/23 pt states had post op bleeding from hand day of and day after proc, none at present Medications or supplements: no changes Diet: same Denies any signs and symptoms of bleeding or clotting or unusual bruising Bleeding, bruising, clotting discussed - aware at risk for clotting Nutritional guidance given: no greens , eat reds to raise Dose: 15mg today, 10mg tomm then cont reg 7.5mg x 2, 10mg x 5 F/U INR Date : pt ref earlier appt than wed 11/14/23?as he will be away Patient verbalizing understanding of instructions given. pcp dr adams called with low inr/dosing and f.u appt- aware of [facility] proc. spoke to rena at 0856 pt request increased quantity of warfarin 10mg tablets- composed note to dr adams Anti-Coag Initial Assessment Social Hx Patient Tobacco Use Status: Never used Tobacco alcohol intake: current Alcohol intake frequency: holidays/special occasions only Coding Level of Care Code Est Patient Level 1 Diagnoses Current use of anticoagulant therapy Z79.01 Assessment & Plan Assessment & Plan (1) Current use of anticoagulant therapy: Code(s): Z79.01 - watermaster (current) use of anticoagulants Category: Medical
[2023-11-08 08:47] LABS: Prothrombin Time Whole Bld POC 14.3 sec (11.1-13.5); ~PT, ~INR - Anti Coag Clinic 1.2 (0.9-1.1)
== END 2023-11-08 09:08 | disposition home or self-care (01) ==
LOC: HO.ACS 08:27
PROVIDERS: PCP Internal Medicine; Visit Provider Internal Medicine
DX: Z79.01 Long term (current) use of anticoagulants (principal)

== ENCOUNTER → 2023-11-08 08:27 | Outpatient (BNVA) | payer MEDICARE, SELFPAY | PROVIDERS: PCP Internal Medicine; Visit Provider Internal Medicine | DX: I48.20 Chronic atrial fibrillation, unspecified (principal); Z79.01 Long term (current) use of anticoagulants; Z51.81 Encounter for therapeutic drug level monitoring | CPT/HCPCS: 85610; 99211 ==

== ENCOUNTER 2023-11-14 13:27 | Outpatient (AMB) | payer MEDICARE, SELFPAY ==
--- NOTE | 2023-11-14 13:42 | MHC.OFFVISCO ---
Intake Intake Visit Reasons: Anticoagulation Allergies doxycycline [Doxycycline] Allergy (Severe, Verified 11/14/23 13:35) HIVES lisinopril Allergy (Severe, Verified 11/14/23 13:35) RASH Medication List - Last Reconciled 11/14/23 by Renuka Klein RN doxepin 3 mg PO BEDTIME PRN fluticasone propionate 50 mcg/actuation (Flonase Allergy Relief) 1 spray intranasal DAILY furosemide 20 mg PO DAILY 90 days levothyroxine 75 mcg PO QAM metoprolol succinate ER 25 mg PO DAILY simvastatin 20 mg PO BEDTIME warfarin (Juntoven) See Protocol 7.5MG X 1 DAY/ 10MG X 6 DAYS warfarin (Juntoven) See Protocol 10 mg X 6-7 DAYS/ WEEK WARFARIN DOSE PER INR Nursing Note INR: 2.2- in therapeutic range of 2-3 Medications and supplements reviewed No changes in health, diet, medications, or supplements, Denies any signs and symptoms of bleeding or bruising or clotting. Bleeding, bruising, clotting discussed Nutritional guidance given Dose: 7.5mg x 2, 10mg x 5 F/U INR: pt req 4 week f/u Patient verbalizes understanding of instructions given ' pt s/p moh's proc top of left hand on 11/05/23 with warfarin hold pre and post- area healing Anti-Coag Initial Assessment Social Hx Patient Tobacco Use Status: Never used Tobacco alcohol intake: current Alcohol intake frequency: holidays/special occasions only Coding Level of Care Code Est Patient Level 1 Diagnoses Current use of anticoagulant therapy Z79.01 Assessment & Plan Assessment & Plan (1) Current use of anticoagulant therapy: Code(s): Z79.01 - 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
[2023-11-14 13:43] LABS: Prothrombin Time Whole Bld POC 26.2 sec (11.1-13.5); ~PT, ~INR - Anti Coag Clinic 2.2 (0.9-1.1)
== END 2023-11-14 13:50 | disposition home or self-care (01) ==
LOC: HO.ACS 13:27
PROVIDERS: PCP Internal Medicine; Visit Provider Internal Medicine
DX: Z79.01 Long term (current) use of anticoagulants (principal)

== ENCOUNTER → 2023-11-14 13:27 | Outpatient (BNVA) | payer MEDICARE, SELFPAY | PROVIDERS: PCP Internal Medicine; Visit Provider Internal Medicine | DX: I48.20 Chronic atrial fibrillation, unspecified (principal); Z79.01 Long term (current) use of anticoagulants; Z51.81 Encounter for therapeutic drug level monitoring | CPT/HCPCS: 85610; 99211 ==

== ENCOUNTER 2023-11-26 09:09 | Outpatient (REF) | payer MEDICARE, SELFPAY ==
--- NOTE | ~2023-11-26 | FL_ITS ---
EXAMINATION: XR FLUOROSCOPY UPPER GI WITH AIR CLINICAL INFORMATION: Dysphagia COMPARISON: None TECHNIQUE: Fluoroscopic air contrast upper GI examination was performed utilizing standard techniques with thin and thick barium and effervescent granules. Numerous spot images were obtained. FINDINGS: Lateral cine images of the oropharynx and hypopharynx during swallow demonstrates suboptimal movement of the epiglottis, with suboptimal coverage of the laryngeal inlet. There was significant laryngeal penetration with thick barium to the level of the true vocal cords on the initial swallow. On subsequent swallows there was evidence of tracheal aspiration. Extensive pooling in the vallecula and piriform sinuses present. Mild nasopharyngeal reflux was present. Hypopharyngeal structures appear normal without evidence of mass or diverticulum. There was no significant cricopharyngeal achalasia. Degenerative disc changes at C3-C4 with ventral disc osteophyte mildly indents upon the hypopharynx. This is likely not clinically significant. Degenerative changes seen at the atlantoaxial joint with probable hydroxyapatite deposition. Moderate degenerative spondylosis of the thoracic spine is evident. Dual lead pacer is noted in place. Limited single contrast images of the esophagus demonstrate a grossly normal-appearing esophagus. This was not fully evaluated. FLUOROSCOPY TIME: 1 minute 52 seconds Number of Spot Images: 4 Number of Cine: 5 DOSE AREA PRODUCT: 593.8 uGy-m2 (microgray-meter squared) FL/FL barium swallow with air IMPRESSION: 1. Significant laryngeal penetration with thick barium to the true vocal cords that progressed to subglottic aspiration. The procedure was, therefore, terminated after this event. 2. Suboptimal epiglottic coverage of the laryngeal inlet and movement during swallow. Persistent pooling of contrast in the piriform sinuses and vallecula. Mild nasopharyngeal reflux present. 3. Grossly normal esophagus, suboptimally evaluated due to aspiration event. This procedure was performed by Norbert Oconnell PA-C, and supervised by Dr. Cordero
== END 2023-11-26 09:10 | disposition home or self-care (01) ==
LOC: HO.XRAY 09:09
PROVIDERS: PCP Internal Medicine; Visit Provider Internal Medicine
DX: R13.10 Dysphagia, unspecified (principal)
CPT/HCPCS: 74221

== ENCOUNTER → 2023-11-26 09:11 | Outpatient (BNV) | payer MEDICARE, SELFPAY | PROVIDERS: PCP Internal Medicine; Visit Provider Physician Assistant Surgical | DX: R13.10 Dysphagia, unspecified (principal) | CPT/HCPCS: 74221 ==

== ENCOUNTER 2023-12-12 08:14 | Outpatient (AMB) | payer MEDICARE, SELFPAY ==
[2023-12-12 08:21] LABS: Prothrombin Time Whole Bld POC 19.3 sec (11.1-13.5); ~PT, ~INR - Anti Coag Clinic 1.6 (0.9-1.1)
--- NOTE | 2023-12-12 08:21 | MHC.OFFVISCO ---
Intake Intake Visit Reasons: Anticoagulation Allergies doxycycline [Doxycycline] Allergy (Severe, Verified 12/12/23 08:16) HIVES lisinopril Allergy (Severe, Verified 12/12/23 08:16) RASH Medication List - Last Reconciled 12/12/23 by Renuka Klein, RN doxepin 3 mg PO BEDTIME PRN fluticasone propionate 50 mcg/actuation (Flonase Allergy Relief) 1 spray intranasal DAILY furosemide 20 mg PO DAILY 90 days levothyroxine 75 mcg PO QAM metoprolol succinate ER 25 mg PO DAILY simvastatin 20 mg PO BEDTIME warfarin (Juntoven) See Protocol 7.5 mg QD orally QD; 90 days warfarin (Juntoven) See Protocol 10 mg X 6-7 DAYS/ WEEK WARFARIN DOSE PER INR Nursing Note INR 1.6-? out of therapeutic range of 2-3 Medications and supplements reviewed Patient status: no c.o , denies missed dose Medications or supplements: no changes Diet: had more greens Denies any signs and symptoms of bleeding or clotting or unusual bruising Bleeding, bruising, clotting discussed Nutritional guidance given: no greens for 2-3 days, eat reds to raise Dose: 15mg today then cont reg dosing 10mg x 5, 7.5mg x 2 F/U INR Date : 1 week? Patient verbalizing understanding of instructions given. 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
== END 2023-12-12 08:31 | disposition home or self-care (01) ==
LOC: HO.ACS 08:14
PROVIDERS: PCP Internal Medicine; Visit Provider Internal Medicine
DX: Z79.01 Long term (current) use of anticoagulants (principal)

== ENCOUNTER → 2023-12-12 08:14 | Outpatient (BNVA) | payer MEDICARE, SELFPAY | PROVIDERS: PCP Internal Medicine; Visit Provider Internal Medicine | DX: I48.20 Chronic atrial fibrillation, unspecified (principal); Z79.01 Long term (current) use of anticoagulants; Z51.81 Encounter for therapeutic drug level monitoring | CPT/HCPCS: 85610; 99211 ==

== ENCOUNTER 2023-12-19 08:03 | Outpatient (AMB) | payer MEDICARE, SELFPAY ==
[2023-12-19 08:10] LABS: Prothrombin Time Whole Bld POC 23.4 sec (11.1-13.5)
--- NOTE | 2023-12-19 08:16 | MHC.OFFVISCO ---
Intake Intake Visit Reasons: Anticoagulation Allergies doxycycline [Doxycycline] Allergy (Severe, Verified 12/19/23 08:05) HIVES lisinopril Allergy (Severe, Verified 12/19/23 08:05) RASH Medication List - Last Reconciled 12/19/23 by Josefa Paredes RN doxepin 3 mg PO BEDTIME PRN fluticasone propionate 50 mcg/actuation (Flonase Allergy Relief) 1 spray intranasal DAILY furosemide 20 mg PO DAILY 90 days levothyroxine 75 mcg PO QAM metoprolol succinate ER 25 mg PO DAILY simvastatin 20 mg PO BEDTIME warfarin (Juntoven) See Protocol 7.5 mg QD orally QD; 90 days warfarin (Juntoven) See Protocol 10 mg X 6-7 DAYS/ WEEK WARFARIN DOSE PER INR Nursing Note INR: 2.0 in therapeutic range Medications and supplements reviewed No changes in health, diet, medications, or supplements, Denies any signs and symptoms of bleeding or bruising or clotting. Bleeding, bruising, clotting discussed Nutritional guidance given Dose: 10mg x 5 days/ 7.5mg x 2 days F/U INR: 3 weeks Patient verbalizes understanding of instructions given Anti-Coag Initial Assessment Social Hx Patient Tobacco Use Status: Never used Tobacco alcohol intake: current Alcohol intake frequency: holidays/special occasions only Coding Level of Care Code Est Patient Level 1 Diagnoses Current use of anticoagulant therapy Z79.01 Results AMB INR Fingerstick AMB INR Fingerstick 2.0 Last Edit by Josefa Paredes RN on 12/19/23 08:11 manual entry interface failure on going Assessment & Plan Assessment & Plan (1) Current use of anticoagulant therapy: Code(s): Z79.01 - [facility] (current) use of anticoagulants Category: Medical
== END 2023-12-19 08:17 | disposition home or self-care (01) ==
LOC: HO.ACS 08:03
PROVIDERS: PCP Internal Medicine; Visit Provider Internal Medicine
DX: Z79.01 Long term (current) use of anticoagulants (principal)

== ENCOUNTER → 2023-12-19 08:03 | Outpatient (BNVA) | payer MEDICARE, SELFPAY | PROVIDERS: PCP Internal Medicine; Visit Provider Internal Medicine | DX: I48.20 Chronic atrial fibrillation, unspecified (principal); Z51.81 Encounter for therapeutic drug level monitoring; Z79.01 Long term (current) use of anticoagulants | CPT/HCPCS: 85610; 99211 ==

== ENCOUNTER 2024-01-04 10:18 | Outpatient (REF) | payer MEDICARE, SELFPAY ==
--- NOTE | ~2024-01-04 | FL_ITS ---
EXAMINATION: Modified Barium Swallow CLINICAL INFORMATION: Dysphagia. COMPARISON: None. TECHNIQUE: Modified barium swallow was performed under lateral fluoroscopy with patient in standing position. Barium mixed with solids and liquids of different consistencies was administered by the speech pathologist. Examination was recorded in the fluoroscopy suite. FINDINGS: Transient Laryngeal penetration was seen with thin consistency barium. No glottic or subglottic aspiration was observed in this examination. Mild posterior indentation of the hypopharynx due to an anterior bridging osteophyte at C3-C4. FLUOROSCOPY TIME: 1 minute 16 seconds Number of Spot Images: DOSE AREA PRODUCT: 477.6 uGy-m2 (microgray-meter squared) FL/FL barium swallow modified IMPRESSION: 1. Transient laryngeal penetration was seen with thin consistency barium. No aspiration was observed in this examination. 2. Mild posterior indentation of the hypopharynx due to an anterior bridging osteophyte at C3-C4. Refer to the speech therapy final report for further clarification. This procedure was performed by Norbert Oconnell PA-C, and supervised by Dr. Cordero
--- NOTE | 2024-01-14 14:48 | MHC.SL.IMP ---
Date of Plan of Treatment: 01/04/24 Onset of Symptoms/Illness: 11/30/23 Date Treatment Started: 01/04/24 Admitting Diagnosis: Dysphagia, unspecified Primary Speech & Language Diagnosis: R13.12 Oropharyngeal Phase Dysphagia Reason for Today's Visit: [id number] Modified Barium Swallow Study Pre-evaluation Dietary Consistencies: Regular Pre-evaluation Liquid Consistency: Thin Pre-evaluation Medication Administration: Whole with Liquid Medical History: Comments: Medical History: Insomnia COVID-19 virus infection Hyperparathyroidism Basal cell carcinoma of skin Tubular adenoma of colon Sick sinus syndrome Hypercholesterolemia Hypothyroid Atrial fibrillation Monoclonal paraproteinemia Hypertension Surgical History History of parathyroidectomy [facility] Fall Risk Assessment Score: Oral Motor Exam Facial Symmetry: Normal for Patient Symmetrical Oral Expression Ability: No Impairment Is patient able to manage secretions?: Yes Is patient able to produce volitional cough?: Yes Food and Liquid Trials: Oral Impairment: Lip Closure: 1=Interlabial escape; no progression to anterior tip Oral Impairment: Tongue Control During Bolus Hold: 2=Posterior escape of less than half of bolus Oral Impairment: Bolus Preparation/Mastication: 1=Slow prolonged chewing/mashing with complete re-collection Oral Impairment: Bolus Transport/Lingual Motion: 1= Delayed initiation of tongue motion Oral Impairment: Oral Residue: 1=Trace residue lining oral structures Oral Impairment:Initiation of Pharyngeal Swallow: 3=Bolus head in pyriforms Pharyngeal Impairment: Soft Palate Elevation: 0=No bolus between soft palate (SP)/pharyngeal wall (PW) Pharyngeal Impairment: Laryngeal Elevation: 1=Partial thyroid cartilage/arytenoids to epiglottic petiole movement Pharyngeal Impairment: Anterior Hyoid Excursion: 0=Complete anterior movement Pharyngeal Impairment: Epiglottic Movement: 0=Complete inversion Pharyngeal Impairment: Laryngeal Vestibular Closure:: 1=Incomplete: narrow column air/contrast in laryngeal vestibule Pharyngeal Impairment: Pharyngeal Stripping Wave: 0=Present: complete Pharyngeal Impairment: Pharyngeal Contraction: Did not test Pharyngeal Impairment: Pharyngoesophageal Segment Openin=Complete distension and complete duration: no obstruction of flow Pharyngeal Impairment: Tongue Base (TB) Retraction: 1=Trace column of contrast/air between TB and posterior PW Pharyngeal Impairment: Pharyngeal Residue: 1=Trace residue within or on pharyngeal structures Pharyngeal Impairment: Esophageal Clearance Upright Position: Did not test Impressions and Recommendations Clinical Observations: Current (pre-evaluation) Intake/Diet: Pre-Study Functional Oral Intake Scale (FOIS): 7- Total oral intake with no restrictions [facility] ID: [id number] [facility] Results: Lip closure for intraoral bolus containment resulted in interlabial escape, without progression to the anterior lip. Tongue control during bolus hold resulted in posterior escape of less than half of the bolus. Bolus preparation and mastication resulted in slow, prolonged chewing/mashing but with complete re-collection. Bolus transport/lingual motion demonstrated delayed initiation of tongue motion. Oral residue was a trace, lining oral structures. Initiation of the pharyngeal swallow occurred when the bolus head was in the pyriform sinuses. Soft palate elevation resulted in no bolus between the soft palate and the pharyngeal wall. Laryngeal elevation was decreased, with partial superior movement of the thyroid cartilage/partial approximation of the arytenoids to the epiglottic petiole. Anterior hyoid excursion demonstrated complete anterior movement. Epiglottic movement resulted in complete inversion. Laryngeal vestibular closure was incomplete, with a narrow column of air/contrast noted within the laryngeal vestibule at the height of the swallow. Pharyngeal stripping wave was present and complete. Pharyngeal contraction could not be determined due to logistical reasons not related to physiologic impairment. Pharyngoesophageal segment opening was completely distended for complete duration with no obstruction of bolus flow. Tongue base retraction allowed a trace column of contrast or air between the retracted tongue base and the posterior pharyngeal wall. Pharyngeal residue was a trace within or on pharyngeal structures. Esophageal clearance in the upright position could not be assessed due to logistical reasons not related to physiologic impairment. Oral Impairment Score: 7 Pharyngeal Impairment Score: 2 (absence of score, component 13) Esophageal Impairment Score: --- (absence of score, component 17) Laryngeal Penetration and Aspiration: Neither penetration nor aspiration was observed in today's study with Cookie, Pudding-thick, Thin. Penetration was observed in today's study. Thin Contrast entered the airway, remained above the vocal folds, and was ejected from the airway. SUMMARY: Pt was provided Thin Liquid Barium and Puree and Regular Solid textures coated in Barium. He was observed in the lateral position swallowing under the following conditions, cup sips with bolus hold, cup sips without hold, consecutive sips of thin liquids. Penetration was observed on the consecutive sip condition only. He demonstrated moderately delayed mastication time for a regular solid and resulted in mild oral and pharyngeal residue after the swallow. Residue was cleared with follow-up sips of thin liquids with aspiration or penetration observed. PLAN: Intake Recommendations: Post-Study Functional Oral Intake Scale (FOIS): 7- Total oral intake with no restrictions Liquid Intake Recommendation: Thin Liquid Intake Strategies: Unrestricted Dietary Recommendations: Regular Medication Administration: Whole with Liquid Please contact the pharmacy regarding appropriate crushable or liquid drug formulations that are available whenever modified delivery is recommended. Compensatory Strategies Recommended: Sitting Upright (90 deg) Small Bites and Sips Alternate Liquids/Solids Rate of Ingestion Change Supervision during eating and or drinking: Intermittent Supervision Recommended Treatments: Compens. Strategy Educat. Recommendation for Speech Therapy: NA:Typical Evaluation Text Comment: No skilled CABLE INSPECTOR indicated at this time. Pt was educated on the results and aspiration precautions Re-assess with follow-up MBSS if status worsens or persists. Frequency/Duration: Date Range for Service Requested: Timeline to reassess: PRN Curbstone Setter Clinician/Clinical Fellow: No Supervisory Statement: N/A Speech Language Pathologist: Franklyn Bal M.A., CCC-CABLE INSPECTOR
== END 2024-01-04 10:19 | disposition home or self-care (01) ==
LOC: HO.XRAY 10:18
PROVIDERS: PCP Internal Medicine; Visit Provider Internal Medicine
DX: R13.10 Dysphagia, unspecified (principal)
CPT/HCPCS: 74230; 92611

== ENCOUNTER → 2024-01-04 10:30 | Outpatient (BNV) | payer MEDICARE, SELFPAY | PROVIDERS: PCP Internal Medicine; Visit Provider Physician Assistant Surgical | DX: R13.10 Dysphagia, unspecified (principal) | CPT/HCPCS: 74230 ==

== ENCOUNTER 2024-01-09 08:13 | Outpatient (AMB) | payer MEDICARE, SELFPAY ==
[2024-01-09 08:29] LABS: Prothrombin Time Whole Bld POC 28.2 sec (11.1-13.5); ~PT, ~INR - Anti Coag Clinic 2.4 (0.9-1.1)
--- NOTE | 2024-01-09 08:35 | MHC.OFFVISCO ---
Intake Intake Visit Reasons: Anticoagulation Allergies doxycycline [Doxycycline] Allergy (Severe, Verified 01/09/24 08:24) HIVES lisinopril Allergy (Severe, Verified 01/09/24 08:24) RASH Medication List - Last Reconciled 01/09/24 by Josefa Paredes RN doxepin 3 mg PO BEDTIME PRN fluticasone propionate 50 mcg/actuation (Flonase Allergy Relief) 1 spray intranasal DAILY furosemide 20 mg PO DAILY 90 days levothyroxine 75 mcg PO QAM metoprolol succinate ER 25 mg PO DAILY simvastatin 20 mg PO BEDTIME warfarin (Juntoven) See Protocol 7.5 mg QD orally QD; 90 days warfarin (Juntoven) See Protocol 10 mg X 6-7 DAYS/ WEEK WARFARIN DOSE PER INR Nursing Note INR: 2.4 in therapeutic range Medications and supplements reviewed No changes in health, diet, medications, or supplements, Denies any signs and symptoms of bleeding or bruising or clotting. Bleeding, bruising, clotting discussed Nutritional guidance given Dose: keep same dose 7.5mg x 2 days/ 10mg x 5 days F/U INR: 1 month Patient verbalizes understanding of instructions given Anti-Coag Initial Assessment Social Hx Patient Tobacco Use Status: Never used Tobacco alcohol intake: current Alcohol intake frequency: holidays/special occasions only Coding Level of Care Code Est Patient Level 1 Diagnoses Current use of anticoagulant therapy Z79.01 Assessment & Plan Assessment & Plan (1) Current use of anticoagulant therapy: Code(s): Z79.01 - half-way (current) use of anticoagulants Category: Medical
== END 2024-01-09 08:37 | disposition home or self-care (01) ==
LOC: HO.ACS 08:13
PROVIDERS: PCP Internal Medicine; Visit Provider Internal Medicine
DX: Z79.01 Long term (current) use of anticoagulants (principal)

== ENCOUNTER → 2024-01-09 08:13 | Outpatient (BNVA) | payer MEDICARE, SELFPAY | PROVIDERS: PCP Internal Medicine; Visit Provider Internal Medicine | DX: I48.20 Chronic atrial fibrillation, unspecified (principal); Z79.01 Long term (current) use of anticoagulants; Z51.81 Encounter for therapeutic drug level monitoring | CPT/HCPCS: 85610; 99211 ==

== ENCOUNTER 2024-02-14 08:22 | Outpatient (AMB) | payer MEDICARE, SELFPAY ==
[2024-02-14 08:31] LABS: Prothrombin Time Whole Bld POC 30.8 sec (11.1-13.5); ~PT, ~INR - Anti Coag Clinic 2.6 (0.9-1.1)
--- NOTE | 2024-02-14 08:41 | MHC.OFFVISCO ---
Intake Intake Visit Reasons: Anticoagulation Allergies doxycycline [Doxycycline] Allergy (Severe, Verified 02/14/24 08:25) HIVES lisinopril Allergy (Severe, Verified 02/14/24 08:25) RASH Medication List - Last Reconciled 02/14/24 by Josefa Paredes RN doxepin 3 mg PO BEDTIME PRN fluticasone propionate 50 mcg/actuation (Flonase Allergy Relief) 1 spray intranasal DAILY furosemide 20 mg PO DAILY 90 days levothyroxine 75 mcg PO QAM metoprolol succinate ER 25 mg PO DAILY simvastatin 20 mg PO BEDTIME warfarin (Juntoven) See Protocol 7.5 mg QD orally QD; 90 days warfarin (Juntoven) See Protocol 10 mg X 6-7 DAYS/ WEEK WARFARIN DOSE PER INR Nursing Note INR: 2.6 in therapeutic range Medications and supplements reviewed No changes in health, diet, medications, or supplements, Denies any signs and symptoms of bleeding or bruising or clotting. Bleeding, bruising, clotting discussed Nutritional guidance given- cont to eat a mix of fruits and vegetables Dose: Pt states he has been taking 10mg x 6 days/ 7.5mg x 1 day for months F/U INR: 1 month Patient verbalizes understanding of instructions given Anti-Coag Initial Assessment Social Hx Patient Tobacco Use Status: Never used Tobacco alcohol intake: current Alcohol intake frequency: holidays/special occasions only Coding Level of Care Code Est Patient Level 1 Diagnoses Current use of anticoagulant therapy Z79.01 Assessment & Plan Assessment & Plan (1) Current use of anticoagulant therapy: Code(s): Z79.01 - alf (current) use of anticoagulants Category: Medical
== END 2024-02-14 08:42 | disposition home or self-care (01) ==
LOC: HO.ACS 08:22
PROVIDERS: PCP Internal Medicine; Visit Provider Internal Medicine
DX: Z79.01 Long term (current) use of anticoagulants (principal)

== ENCOUNTER → 2024-02-14 08:22 | Outpatient (BNVA) | payer MEDICARE, SELFPAY | PROVIDERS: PCP Internal Medicine; Visit Provider Internal Medicine | DX: I48.20 Chronic atrial fibrillation, unspecified (principal); Z79.01 Long term (current) use of anticoagulants; Z51.81 Encounter for therapeutic drug level monitoring | CPT/HCPCS: 85610; 99211 ==

== ENCOUNTER 2024-03-20 08:15 | Outpatient (AMB) | payer MEDICARE, SELFPAY ==
[2024-03-20 08:35] LABS: Prothrombin Time Whole Bld POC 26.5 sec (11.1-13.5); ~PT, ~INR - Anti Coag Clinic 2.2 (0.9-1.1)
--- NOTE | 2024-03-20 08:39 | MHC.OFFVISCO ---
Intake Intake Visit Reasons: Anticoagulation Allergies doxycycline [Doxycycline] Allergy (Severe, Verified 03/20/24 08:31) HIVES lisinopril Allergy (Severe, Verified 03/20/24 08:31) RASH Medication List - Last Reconciled 03/20/24 by Roxanne Rodriguez, RN doxepin 3 mg PO BEDTIME PRN fluticasone propionate 50 mcg/actuation (Flonase Allergy Relief) 1 spray intranasal DAILY furosemide 20 mg PO DAILY 90 days levothyroxine 75 mcg PO QAM metoprolol succinate ER 25 mg PO DAILY simvastatin 20 mg PO BEDTIME warfarin (Juntoven) See Protocol 7.5 mg QD orally QD; 90 days warfarin (Juntoven) See Protocol 10 mg X 6-7 DAYS/ WEEK WARFARIN DOSE PER INR Nursing Note INR: 2.2 in therapeutic range 2-3 Medications and supplements reviewed No changes in health, diet, medications, or supplements, Denies any signs and symptoms of bleeding or bruising or clotting. Bleeding, bruising, clotting discussed Nutritional guidance given Dose: 10mg X 6 days and 7.5mg X 1 day F/U INR: 4 weeks suggested. Pt requested 5 weks. Patient verbalizes understanding of instructions given Anti-Coag Initial Assessment Social Hx Patient Tobacco Use Status: Never used Tobacco alcohol intake: current Alcohol intake frequency: holidays/special occasions only Coding Level of Care Code Est Patient Level 1 Diagnoses Current use of anticoagulant therapy Z79.01 Assessment & Plan Assessment & Plan (1) Current use of anticoagulant therapy: Code(s): Z79.01 - custodial (current) use of anticoagulants Category: Medical
== END 2024-03-20 08:40 | disposition home or self-care (01) ==
LOC: HO.ACS 08:15
PROVIDERS: PCP Internal Medicine; Visit Provider Internal Medicine
DX: Z79.01 Long term (current) use of anticoagulants (principal)

== ENCOUNTER → 2024-03-20 08:15 | Outpatient (BNVA) | payer MEDICARE, SELFPAY | PROVIDERS: PCP Internal Medicine; Visit Provider Internal Medicine | DX: I48.20 Chronic atrial fibrillation, unspecified (principal); Z79.01 Long term (current) use of anticoagulants; Z51.81 Encounter for therapeutic drug level monitoring | CPT/HCPCS: 85610; 99211 ==

== ENCOUNTER 2024-04-23 08:47 | Outpatient (AMB) | payer MEDICARE, SELFPAY ==
--- NOTE | 2024-04-23 08:51 | MHC.OFFVISCO ---
Intake Intake Visit Reasons: Anticoagulation Allergies doxycycline [Doxycycline] Allergy (Severe, Verified 04/23/24 08:47) HIVES lisinopril Allergy (Severe, Verified 04/23/24 08:47) RASH Medication List - Last Reconciled 04/23/24 by Renuka Klein, RN doxepin 3 mg PO BEDTIME PRN fluticasone propionate 50 mcg/actuation (Flonase Allergy Relief) 1 spray intranasal DAILY furosemide 20 mg PO DAILY 90 days levothyroxine 75 mcg PO QAM metoprolol succinate ER 25 mg PO DAILY simvastatin 20 mg PO BEDTIME warfarin (Juntoven) See Protocol 7.5 mg QD orally QD; 90 days warfarin (Juntoven) See Protocol 10 mg X 6-7 DAYS/ WEEK WARFARIN DOSE PER INR Nursing Note INR: 2.2- in therapeutic range of 2-3 Medications and supplements reviewed- no changes No changes in health, diet, medications, or supplements, Denies any signs and symptoms of bleeding or bruising or clotting. 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
[2024-04-23 08:52] LABS: Prothrombin Time Whole Bld POC 26.7 sec (11.1-13.5); ~PT, ~INR - Anti Coag Clinic 2.2 (0.9-1.1)
== END 2024-04-23 09:01 | disposition home or self-care (01) ==
LOC: HO.ACS 08:47
PROVIDERS: PCP Internal Medicine; Visit Provider Internal Medicine
DX: Z79.01 Long term (current) use of anticoagulants (principal)

== ENCOUNTER → 2024-04-23 08:47 | Outpatient (BNVA) | payer MEDICARE, SELFPAY | PROVIDERS: PCP Internal Medicine; Visit Provider Internal Medicine | DX: I48.20 Chronic atrial fibrillation, unspecified (principal); Z79.01 Long term (current) use of anticoagulants; Z51.81 Encounter for therapeutic drug level monitoring | CPT/HCPCS: 85610; 99211 ==

== ENCOUNTER 2024-05-27 08:24 | Outpatient (AMB) | payer MEDICARE, SELFPAY ==
--- NOTE | 2024-05-27 08:39 | MHC.OFFVISCO ---
Intake Intake Visit Reasons: Anticoagulation Allergies doxycycline [Doxycycline] Allergy (Severe, Verified 05/27/24 08:30) HIVES lisinopril Allergy (Severe, Verified 05/27/24 08:30) RASH Medication List - Last Reconciled 05/27/24 by Roxanne Rodriguez, RN doxepin 3 mg PO BEDTIME PRN fluticasone propionate 50 mcg/actuation (Flonase Allergy Relief) 1 spray intranasal DAILY furosemide 20 mg PO DAILY 90 days levothyroxine 75 mcg PO QAM metoprolol succinate ER 25 mg PO DAILY simvastatin 20 mg PO BEDTIME warfarin (Juntoven) See Protocol 7.5 mg QD orally QD; 90 days warfarin (Juntoven) See Protocol 10 mg X 6-7 DAYS/ WEEK WARFARIN DOSE PER INR Nursing Note INR: 2.6 in therapeutic range of 2-3 Medications and supplements reviewed No changes in health, diet, medications, or supplements, Denies any signs and symptoms of bleeding or bruising or clotting. Bleeding, bruising, clotting discussed Nutritional guidance given Dose: 10mg X 6 days and 7.5mg X 1 day (Sun) F/U INR: 5 weeks per pt request Patient verbalizes understanding of instructions given Anti-Coag Initial Assessment Social Hx Patient Tobacco Use Status: Never used Tobacco alcohol intake: current Alcohol intake frequency: holidays/special occasions only Coding Level of Care Code Est Patient Level 1 Diagnoses Current use of anticoagulant therapy Z79.01 Results AMB INR Fingerstick AMB INR Fingerstick 2.6 Last Edit by Roxanne Rodriguez, ELIANE on 05/27/24 08:35 interface delay Assessment & Plan Assessment & Plan (1) Current use of anticoagulant therapy: Code(s): Z79.01 - group home (current) use of anticoagulants Category: Medical
[2024-05-27 08:46] LABS: Prothrombin Time Whole Bld POC 31.4 sec (11.1-13.5); ~PT, ~INR - Anti Coag Clinic 2.6 (0.9-1.1)
--- OUTSIDE RECORDS SUMMARY | 2024-05-28 18:48 | XMS_ITS | Continuity of Care Document ---
Author Name [facility] Organization DOD-MS Care Team Providers Care Transfer Man Name Role Phone DOD-MS Unavailable Unavailable Problems Combined list of problems from Department of Defense and Veterans Affairs facilities. It does not include entries that were removed or entered in error. Problem Status Onset Date Problem Type Date of Resolution Comments Source Disorder of thyroid gland Active 024 Condition Apr 18, 2024 Entered By: TERRY YEPEZ Comment: high tsh [facility] Permanent cardiac pacemaker Active 018 Condition [facility] Atrial Flutter * (ICD-9-CM 427.32) Active 010 Condition [facility] Acute sinusitis (ICD-9-CM 461.9) Active Condition [facility] Atrial Fibrillation * (ICD-9-CM 427.31) Active Condition [facility] Colonoscopy Active Condition Jun 26, 2005 Entered By: ALFONSO ARCINIEGA Comment: w. Polypectomy in Community 2002. [facility] Essential hypertension Active Condition [facility] Exposure to potentially hazardous substance Active Condition Aug 02, 2023 Entered By: ERNESTO MARRERO Comment: Original CHRISTOPHE Screen completed 05/09/22 [facility] HEADACHE Active Condition [facility] Hyperlipidemia * (ICD-9-CM 272.4) Active Condition [facility] HYPERTENSION Active Condition [facility] Impaired fasting glucose Active Condition [facility] Melanoma of Skin (ICD-9-CM 172.9) Active Condition [facility] Primary HYPERPARATHYROIDISM [facility] Rosacea * (ICD-9-CM 695.3) Active Condition [facility] [place] [facility] SINUSITIS, CHRONIC Active Condition [facility] [place] [facility] Superficial basal cell carcinoma Active Condition Feb 28, 2006 Entered By: ALFONSO ARCINIEGA Comment: Resected from L. Pretibial 2005. [facility] [place] [facility] Screening for Malignant Neoplasms of colon Inactive Condition 05/29/2003 May 29, 2003 Entered By: JOSH RODRIGUEZ Comment: colonscopy 02/18 one benign polyp, Mother had colon CA[facility] [place] [facility] Diagnosis[facility] ICD-10-CM M21.371 Foot drop, right foot Active Diagnosis [facility] [place] [facility] Diagnosis: ICD-10-CM I10 Essential (primary) hypertension Active Diagnosis [facility] [place] [facility] Diagnosis: ICD-10-CM M20.40 Other hammer toe(s) (acquired), unspecified foot Active Diagnosis [facility] [place] [facility] Diagnosis: ICD-10-CM R60.0 Localized edema Active Diagnosis [facility] [place] [facility] Diagnosis: ICD-10-CM I89.0 Lymphedema, not elsewhere classified Active Diagnosis [facility] Diagnosis: ICD-10-CM I87.2 Venous insufficiency (chronic) (peripheral) Active Diagnosis [facility] Diagnosis: ICD-10-CM R60.9 Edema, unspecified Active Diagnosis [facility] [place] [facility] Diagnosis: ICD-10-CM Z23 Encounter for immunization Active Diagnosis [facility] [place] [facility] Medications Combined list of outpatient medications from Department of Defense and Veterans Affairs facilities.Medications provided include 1) outpatient medications from the last 15 months, and 2) patient-reported medications. Medication Details Route Status Patient Instructions Prescription Expires Prescription Number Last Dispense Date Ordering Provider Order Date Order Qty Source FUROSEMIDE 20MG TAB TAKE ONE TABLET BY MOUTH EVERY DAY ORAL ACTIVE NED YEPEZ 2011 [facility] LEVOTHYROXI NE NA 50MCG TAB (SYNTHROID) TAKE ONE TABLET BY MOUTH EVERY DAY ORAL ACTIVE NED YEPEZ 2011 [facility] [place] [facility] LISINOPRIL 20MG TAB TAKE ONE TABLET BY MOUTH EVERY DAY ORAL ACTIVE LUCHO,HOW FELIPA D 2011 [facility] [place] METOPROLOL SUCCINATE TAB,SA TAKE 12.5MG BY MOUTH EVERY DAY ORAL ACTIVE LUCHO,HOW FELIPA D 2011 [facility] [place] [facility] MULTIVITAMI NS W/MINERALS TAB TAKE ONE TABLET BY MOUTH ORAL ACTIVE EMILY RODRIGUEZ 2004 [facility] [place] [facility] SIMVASTATIN 40MG TAB TAKE ONE-HALF TABLET BY MOUTH AT BEDTIME ORAL ACTIVE LUCHO,HOW FELIPA D 2023 [facility] [place] [facility] WARFARIN NA (MOORE STATE) 10MG TAB TAKE DIRECTED BY MOUTH WITH DIRECTIO NS PROVIDED FROM THE [facility] ORAL ACTIVE LUCHO,HOW FELIPA D 2011 [facility] [place] [facility] Allergies, Adverse Reactions, Alerts Combined list of allergies from Department of Defense and Veterans Affairs facilities. It does not include entries that were removed or entered in error. Substance Category Reaction Severity Reaction type Status Date Reported Comments Source AMOXICILLIN Propensity to adverse reactions to drug (finding) Eruption active 3 [facility] CALCIUM Propensity to adverse reactions to drug (finding) Eruption active 3 [facility] [place] MINOCYCLINE Propensity to adverse reactions to drug (finding) Eruption active 3 [facility] [place] [facility] Immunizations Combined list of available immunizations from the Department of Defense and Veterans Affairs facilities. Immunization Series Date Given Administered By Site Reaction Lot Number CVX Code Drug Administrative Liaison Status Comments Source COVID-19 (MODERNA), MRNA, LNP-S, PF, 50 MCG/0.5 ML (AGES 12+ YEARS) 2023 CASSI BONNER LEFT DELTO ID [id number] 312 complet ed [facility] INFLUENZA, HIGH-DOSE, TRIVALENT, PF 2023 CASSI BONNER RIGHT DELTO ID [id number] 135 complet ed [facility] RSV, BIVALENT, PROTEIN SUBUNIT RSVPREF, DILUENT RECONSTITUTED , 0.5 ML, PF 2022 CASSI BONNER RIGHT DELTO ID [id number] 305 complet ed [facility] COVID-19 (MODERNA), MRNA, LNP-S, PF, 50 MCG/0.5 ML (AGES 12+ YEARS) 4 2022 SHYLA HERNANDEZ M RIGHT DELTO ID [id number] 312 complet ed [facility] INFLUENZA, HIGH-DOSE, QUADRIVALENT 2022 SHYLA HERNANDEZ ER M LEFT DELTO ID [id number] 197 complet ed [facility] TDAP 2022 SHYLA HERNANDEZ M LEFT DELTO ID [id number] 115 complet ed [facility] INFLUENZA, UNSPECIFIED FORMULATION 2021 88 complet ed [facility] COVID-19 (MODERNA), MRNA, LNP-S, PF, 100 MCG OR 50 MCG DOSE 3 2020 207 complet ed [id number] [facility] [place] INFLUENZA VACCINE, QUADRIVALENT, ADJUVANTED 2020 205 complet ed [facility] [place] COVID-19 (MODERNA), MRNA, LNP-S, PF, 100 MCG/0.5 ML DOSE 2 2020 207 complet ed MOD; [id number]; 1 [facility] COVID-19 (MODERNA), MRNA, LNP-S, PF, 100 MCG/0.5 ML DOSE 1 2020 207 complet ed MOD; [id number]; 1 [facility] INFLUENZA, UNSPECIFIED FORMULATION 2019 88 complet ed [facility] INFLUENZA, TRIVALENT, ADJUVANTED 2017 168 complet ed Site: Right Deltoid [facility] ZOSTER RECOMBINANT 1 2017 187 complet ed [facility] INFLUENZA, HIGH DOSE SEASONAL 2016 135 complet ed Site: Right Deltoid [facility] FLU,3 YRS (HISTORICAL) [address] Aguila [facility] FLU,3 YRS (HISTORICAL) 2014 88 complet ed Site: Left Deltoid [facility] PNEUMOCOCCAL CONJUGATE PCV 13 2013 133 complet ed [facility] FLU,3 YRS (HISTORICAL) 2013 88 complet ed [facility] DTAP, UNSPECIFIED FORMULATION 2012 107 complet ed [facility] FLU,3 YRS (HISTORICAL) 2012 88 complet ed [facility] FLU,3 YRS (HISTORICAL) 2011 88 complet ed [facility] FLU,3 YRS (HISTORICAL) 2010 88 complet ed Site: Right Deltoid [facility] TD(ADULT) UNSPECIFIED FORMULATION 2010 139 complet ed [facility] FLU,3 YRS (HISTORICAL) 2009 88 complet ed [facility] FLU,3 YRS (HISTORICAL) 2008 88 complet ed Site: Left Deltoid [facility] FLU,3 YRS (HISTORICAL) 2007 88 complet ed Site: Right Deltoid [facility] FLU,3 YRS (HISTORICAL) 2006 TERRY YEPEZ 88 complet ed Site: Left Deltoid [facility] FLU,3 YRS (HISTORICAL) 2005 JURGEN MARRERO 88 complet ed [facility] [place] PNEUMOCOCCAL, UNSPECIFIED FORMULATION 2004 109 complet ed [facility] [place] Results Combined list of recent chemistry, hematology and other laboratory results from Department of Defense and Veterans Affairs, ranging from 15 months to all on record, depending upon the facility. Order Name Results Value Reference Range Date Interpretation Specimen Comments Source BASIC METABOLI C PANEL (fasting ) UREA NITROGEN [MASS/VOLU ME] IN SERUM OR PLASMA 22 mg/dL 7 - 25 04/09 Specimen Type: SERUM No comment entered. Ordering Provider: RONNIE YEPEZ Report Released Date/Time: Apr 05, 2024 04:09 PM Reporting Lab: [facility] [place] [address] Performing Lab: [facility]ITALRCITIZENS B[facility]N [facility] [address] [address] [facility] BASIC METABOLI C PANEL (fasting ) GLUCOSE [MASS/VOLU ME] IN SERUM OR PLASMA 104 mg/dL 65 - 100 04/09 H Specimen Type: SERUM No comment entered. Ordering Provider: RONNIE YEPEZ Report Released Date/Time: Apr 05, 2024 04:09 PM Reporting Lab: [facility]RT[facility]ILITYTRN [facility] [address] [address] Performing Lab: [facility]ITALRTAYL[facility]ACILITYTRN [facility] [address] [address] [facility] BASIC METABOLI C PANEL (fasting ) SODIUM [MOLES/VOL UME] IN SERUM OR PLASMA 138 mmol/L 135 - 145 04/09 Specimen Type: SERUM No comment entered. Ordering Provider: RONNIE YEPEZ Report Released Date/Time: Apr 05, 2024 04:09 PM Reporting Lab: [facility]ITALRTAY[facility]ILITYTRN [facility] [address] [address] Performing Lab: [facility]ITALRCITIZENS [facility]N [facility]CAREUSE[address] [address] [facility] BASIC METABOLI C PANEL (fasting ) POTASSIUM [MOLES/VOL UME] IN SERUM OR PLASMA 4.5 mmol/L 3.5 - 5.0 04/09 Specimen Type: SERUM No comment entered. Ordering Provider: RONNIE YEPEZ Report Released Date/Time: Apr 05, 2024 04:09 PM Reporting Lab: [facility] [place] [facility] [address] [address] Performing Lab: [facility] [place] [facility] [address] [address] [facility] [place] [facility] BASIC METABOLI C PANEL (fasting ) CHLORIDE [MOLES/VOL UME] IN SERUM OR PLASMA 104 mmol/L 100 - 110 04/09 Specimen Type: SERUM No comment entered. Ordering Provider: RONNIE YEPEZ Report Released Date/Time: Apr 05, 2024 04:09 PM Reporting Lab: [facility] [place] [facility] [address] [address] Performing Lab: [facility] [place] [facility] [address] [address] [facility]ITALRL WSTR[facility] [place] [facility] BASIC METABOLI C PANEL (fasting ) CARBON DIOXIDE, TOTAL [MOLES/VOL UME] IN SERUM OR PLASMA 28 meq/L 20 - 30 04/09 Specimen Type: SERUM No comment entered. Ordering Provider: RONNIE YEPEZ Report Released Date/Time: Apr 05, 2024 04:09 PM Reporting Lab: [facility] [place] [facility] [address] [address] Performing Lab: [facility] [place] [facility] [address] [address] [facility]OSPITALRL TRN [facility]AREUSE [facility] BASIC METABOLI C PANEL (fasting ) CREATININE [MASS/VOLU ME] IN SERUM OR PLASMA 0.90 mg/dL 0.50 - 1.40 04/09 Specimen Type: SERUM No comment entered. Ordering Provider: RONNIE YEPEZ Report Released Date/Time: Apr 05, 2024 04:09 PM Reporting Lab: [facility] [place] [facility] [address] [address] Performing Lab: [facility] [address] [address] [facility]ITALRL WSTRN [place] [facility] BASIC METABOLI C PANEL (fasting ) GLOMERULAR FILTRATION RATE/1.73 SQ M.PREDICTE D [VOLUME RATE/AREA] IN SERUM, PLASMA OR BLOOD BY CREATININE -BASED FORMULA (CKD-EPI 2020) 84 mL/min 60 04/09 Specimen Type: SERUM No comment entered. Ordering Provider: RONNIE YEPEZ Report Released Date/Time: Apr 05, 2024 04:09 PM Reporting Lab: [facility] [place] [address] [address] Performing Lab: [facility] [place] [address] [address] [facility] [place] [facility] CBC AND DIFF (AUTO) LEUKOCYTES [#/VOLUME] IN BLOOD BY AUTOMATED COUNT 5.27 10*3/uL 4.50 - 11.00 04/09 Specimen Type: BLOOD No comment entered. Ordering Provider: RONNIE YEPEZ Report Released Date/Time: Apr 05, 2024 04:09 PM Reporting Lab: [facility] [place] [address] [address] Performing Lab: [facility] [place] [address] [address] [facility] [place] [facility] CBC AND DIFF (AUTO) ERYTHROCYT ES [#/VOLUME] IN BLOOD BY AUTOMATED COUNT 4.15 10*6/uL 4.23 - 5.66 04/09 L Specimen Type: BLOOD No comment entered. Ordering Provider: RONNIE YEPEZ Report Released Date/Time: Apr 05, 2024 04:09 PM Reporting Lab: [facility] [place] [address] [address] Performing Lab: [facility] [place] [address] [address] [facility] [place] [facility] CBC AND DIFF (AUTO) HEMOGLOBIN [MASS/VOLU ME] IN BLOOD 13.2 g/dL 12.8 - 17 04/09 Specimen Type: BLOOD No comment entered. Ordering Provider: RONNIE YEPEZ Report Released Date/Time: Apr 05, 2024 04:09 PM Reporting Lab: [facility] [place] [address] [address] Performing Lab: [facility] [place] [facility] [address] [address] [facility] [place] [facility] CBC AND DIFF (AUTO) HEMATOCRIT [VOLUME FRACTION] OF BLOOD BY AUTOMATED COUNT 38.2 39.2 - 50.4 04/09 L Specimen Type: BLOOD No comment entered. Ordering Provider: RONNIE YEPEZ Report Released Date/Time: Apr 05, 2024 04:09 PM Reporting Lab: [facility] [place] [facility] [address] [address] Performing Lab: [facility] [place] [facility] [address] [address] [facility] [place] [facility] CBC AND DIFF (AUTO) MCV [ENTITIC VOLUME] BY AUTOMATED COUNT 92.0 fL 82 - 99 04/09 Specimen Type: BLOOD No comment entered. Ordering Provider: RONNIE YEPEZ Report Released Date/Time: Apr 05, 2024 04:09 PM Reporting Lab: [facility]ITAL[facility]N [place] [facility] [address] [address] Performing Lab: [facility] [place] [facility] [address] [address] [facility] [place] [facility] CBC AND DIFF (AUTO) MCHC [MASS/VOLU ME] BY AUTOMATED COUNT 34.6 g/dL 30.8 - 35.1 04/09 Specimen Type: BLOOD No comment entered. Ordering Provider: RONNIE YEPEZ Report Released Date/Time: Apr 05, 2024 04:09 PM Reporting Lab: [facility] [place] [facility] [address] [address] Performing Lab: [facility] [place] [facility] [address] [address] [facility] [place] [facility] CBC AND DIFF (AUTO) PLATELETS [#/VOLUME] IN BLOOD BY AUTOMATED COUNT 138 10*3/uL 140 - 360 04/09 L Specimen Type: BLOOD No comment entered. Ordering Provider: RONNIE YEPEZ Report Released Date/Time: Apr 05, 2024 04:09 PM Reporting Lab: [facility] [place] [facility] [address] [address] Performing Lab: [facility] [place] [facility] [address] [address] [facility] CBC AND DIFF (AUTO) ERYTHROCYT E DISTRIBUTI ON WIDTH [RATIO] BY AUTOMATED COUNT 13.0 12.0 - 16.0 04/09 Specimen Type: BLOOD No comment entered. Ordering Provider: RONNIE YEPEZ Report Released Date/Time: Apr 05, 2024 04:09 PM Reporting Lab: [facility] [place] [facility] [address] [address] Performing Lab: [facility] [place] [facility] [address] [address] [facility] [place] [facility] CBC AND DIFF (AUTO) MONOCYTES [#/VOLUME] IN BLOOD BY AUTOMATED COUNT 0.49 10*3/uL 0.30 - 1.10 04/09 Specimen Type: BLOOD No comment entered. Ordering Provider: RONNIE YEPEZ Report Released Date/Time: Apr 05, 2024 04:09 PM Reporting Lab: [facility] [place] [facility] [address] [address] Performing Lab: [facility] [place] [facility] [address] [address] [facility] [place] [facility] CBC AND DIFF (AUTO) MCH [ENTITIC MASS] BY AUTOMATED COUNT 31.8 pg 26.2 - 32.6 04/09 Specimen Type: BLOOD No comment entered. Ordering Provider: RONNIE YEPEZ Report Released Date/Time: Apr 05, 2024 04:09 PM Reporting Lab: [facility] [place] [facility] [address] [address] Performing Lab: [facility] [place] [facility] [address] [address] [facility] [place] [facility] CBC AND DIFF (AUTO) NEUTROPHIL S/100 LEUKOCYTES IN BLOOD BY AUTOMATED COUNT 56.7 43.7 - 75.8 04/09 Specimen Type: BLOOD No comment entered. Ordering Provider: RONNIE YEPEZ Report Released Date/Time: Apr 05, 2024 04:09 PM Reporting Lab: [facility] [place] [facility] [address] [address] Performing Lab: [facility] [place] [facility] [address] [address] [facility] [place] [facility] CBC AND DIFF (AUTO) LYMPHOCYTE S/100 LEUKOCYTES IN BLOOD BY AUTOMATED COUNT 28.1 14.0 - 42.3 04/09 Specimen Type: BLOOD No comment entered. Ordering Provider: RONNIE YEPEZ Report Released Date/Time: Apr 05, 2024 04:09 PM Reporting Lab: [facility] [place] [facility] [address] [address] Performing Lab: [facility] [place] [facility] [address] [address] [facility] [place] [facility] CBC AND DIFF (AUTO) MONOCYTES/ 100 LEUKOCYTES IN BLOOD BY AUTOMATED COUNT 9.3 5.1 - 13.7 04/09 Specimen Type: BLOOD No comment entered. Ordering Provider: RONNIE YEPEZ Report Released Date/Time: Apr 05, 2024 04:09 PM Reporting Lab: [facility] [place] [facility] [address] [address] Performing Lab: [facility] [place] [facility] [address] [address] [facility] [place] CBC AND DIFF (AUTO) EOSINOPHIL S/100 LEUKOCYTES IN BLOOD BY AUTOMATED COUNT 3.8 0.4 - 6.8 04/09 Specimen Type: BLOOD No comment entered. Ordering Provider: RONNIE YEPEZ Report Released Date/Time: Apr 05, 2024 04:09 PM Reporting Lab: [facility] [place] [facility] [address] [address] Performing Lab: [facility] [place] [facility] [address] [address] [facility] [place] CBC AND DIFF (AUTO) BASOPHILS/ 100 LEUKOCYTES IN BLOOD BY AUTOMATED COUNT 0.8 0.1 - 2.0 04/09 Specimen Type: BLOOD No comment entered. Ordering Provider: RONNIE YEPEZ Report Released Date/Time: Apr 05, 2024 04:09 PM Reporting Lab: [facility] [place] [facility] [address] [address] Performing Lab: [facility] [place] [facility] [address] [address] [facility] [place] [facility] CBC AND DIFF (AUTO) NEUTROPHIL S [#/VOLUME] IN BLOOD BY AUTOMATED COUNT 2.99 10*3/uL 2.20 - 7.60 04/09 Specimen Type: BLOOD No comment entered. Ordering Provider: RONNIE YEPEZ Report Released Date/Time: Apr 05, 2024 04:09 PM Reporting Lab: [facility] [place] [facility] [address] [address] Performing Lab: [facility] [place] [facility] [address] [address] [facility] [place] [facility] CBC AND DIFF (AUTO) LYMPHOCYTE S [#/VOLUME] IN BLOOD BY AUTOMATED COUNT 1.48 10*3/uL 1.00 - 3.20 04/09 Specimen Type: BLOOD No comment entered. Ordering Provider: RONNIE YEPEZ Report Released Date/Time: Apr 05, 2024 04:09 PM Reporting Lab: [facility] [place] [address] [address] Performing Lab: [facility] [place] [facility] [address] [address] [facility] [place] [facility] CBC AND DIFF (AUTO) EOSINOPHIL S [#/VOLUME] IN BLOOD BY AUTOMATED COUNT 0.20 10*3/uL 0.03 - 0.44 04/09 Specimen Type: BLOOD No comment entered. Ordering Provider: RONNIE YEPEZ Report Released Date/Time: Apr 05, 2024 04:09 PM Reporting Lab: [facility] [place] [address] [address] Performing Lab: [facility] [place] [address] [address] [facility] CBC AND DIFF (AUTO) BASOPHILS [#/VOLUME] IN BLOOD BY AUTOMATED COUNT 0.04 10*3/uL 0.01 - 0.13 04/09 Specimen Type: BLOOD No comment entered. Ordering Provider: RONNIE YEPEZ Report Released Date/Time: Apr 05, 2024 04:09 PM Reporting Lab: [facility] [place] [facility] [address] [address] Performing Lab: [facility] [place] [facility] [address] [address] [facility] [place] [facility] CBC AND DIFF (AUTO) IMMATURE GRANULOCYT ES/100 LEUKOCYTES IN BLOOD BY AUTOMATED COUNT 1.3 0.0 - 0.7 04/09 H Specimen Type: BLOOD No comment entered. Ordering Provider: RONNIE YEPEZ Report Released Date/Time: Apr 05, 2024 04:09 PM Reporting Lab: [facility] [place] [facility] [address] [address] Performing Lab: [facility] [place] [facility] [address] [address] [facility] [place] [facility] CBC AND DIFF (AUTO) IMMATURE GRANULOCYT ES [#/VOLUME] IN BLOOD 0.07 10*3/uL 0.00 - 0.06 04/09 H Specimen Type: BLOOD No comment entered. Ordering Provider: RONNIE YEPEZ Report Released Date/Time: Apr 05, 2024 04:09 PM Reporting Lab: [facility] [place] [facility] [address] [address] Performing Lab: [facility] [place] [facility] [address] [address] [facility] [place] [facility] CBC AND DIFF (AUTO) NRBC % 0.0 0.0 - 0.0 04/09 Specimen Type: BLOOD No comment entered. Ordering Provider: RONNIE YEPEZ Report Released Date/Time: Apr 05, 2024 04:09 PM Reporting Lab: [facility] [place] [address] [address] Performing Lab: [facility] [place] [facility] [address] [address] [facility] [place] [facility] CBC AND DIFF (AUTO) NRBC, ABS 0.00 10*3/uL 0.00 - 0.00 04/09 Specimen Type: BLOOD No comment entered. Ordering Provider: RONNIE YEPEZ Report Released Date/Time: Apr 05, 2024 04:09 PM Reporting Lab: [facility] [place] [facility] [address] [address] Performing Lab: [facility] [address] [address] [facility] [place] [facility] LIPID PANEL FASTING CHOLESTERO L [MASS/VOLU ME] IN SERUM OR PLASMA 130 mg/dL 04/09 Specimen Type: SERUM No comment entered. Ordering Provider: RONNIE YEPEZ Report Released Date/Time: Apr 05, 2024 04:09 PM Reporting Lab: [facility] [place] [facility] [address] [address] Performing Lab: [facility] [place] [facility] [address] [address] [facility] LIPID PANEL FASTING TRIGLYCERI DE [MASS/VOLU ME] IN SERUM OR PLASMA 92 mg/dL 0 - 150 04/09 Specimen Type: SERUM No comment entered. Ordering Provider: RONNIE YEPEZ Report Released Date/Time: Apr 05, 2024 04:09 PM Reporting Lab: [facility] [place] [facility] [address] [address] Performing Lab: [facility] [place] [address] [address] [facility] [place] [facility] LIPID PANEL FASTING CHOLESTERO L IN LDL [MASS/VOLU ME] IN SERUM OR PLASMA BY CALCULATIO N 67 mg/dL 0 - 129 04/09 Specimen Type: SERUM No comment entered. Ordering Provider: RONNIE YEPEZ Report Released Date/Time: Apr 05, 2024 04:09 PM Reporting Lab: [facility] [place] [facility] [address] [address] Performing Lab: [facility] [place] [facility] [address] [address] [facility] [place] [facility] LIPID PANEL FASTING CHOLESTERO L.TOTAL/CH OLESTEROL IN HDL [MASS RATIO] IN SERUM OR PLASMA 2.9 04/09 Specimen Type: SERUM No comment entered. Ordering Provider: RONNIE YEPEZ Report Released Date/Time: Apr 05, 2024 04:09 PM Reporting Lab: [facility] [place] [facility] [address] [address] Performing Lab: [facility] [place] [facility] [address] [address] [facility]ITAL[facility] WSTRN [facility] LIPID PANEL FASTING CHOLESTERO L IN HDL [MASS/VOLU ME] IN SERUM OR PLASMA 45 mg/dL 40 - 60 04/09 Specimen Type: SERUM No comment entered. Ordering Provider: RONNIE YEPEZ Report Released Date/Time: Apr 05, 2024 04:09 PM Reporting Lab: [facility] [place] [facility] [address] [address] Performing Lab: [facility] [place] [facility] [address] [address] [facility]PITALRL TRN [facility] LIVER FUNCTION PROTEIN [MASS/VOLU ME] IN SERUM OR PLASMA 7.4 g/dL 6.0 - 8.3 04/09 Specimen Type: SERUM No comment entered. Ordering Provider: RONNIE YEPEZ Report Released Date/Time: Apr 05, 2024 04:09 PM Reporting Lab: [facility] [place] [facility] [address] [address] Performing Lab: [facility] [place] [facility] [address] [address] [facility]ITAL[facility] W[facility]N [place] [facility] LIVER FUNCTION ALBUMIN [MASS/VOLU ME] IN SERUM OR PLASMA 4.3 g/dL 3.5 - 5.0 04/09 Specimen Type: SERUM No comment entered. Ordering Provider: RONNIE YEPEZ Report Released Date/Time: Apr 05, 2024 04:09 PM Reporting Lab: [facility] [place] [facility] [address] [address] Performing Lab: [facility] [place] [facility] [address] [address] [facility] [place] [facility] LIVER FUNCTION ALKALINE PHOSPHATAS E [ENZYMATIC ACTIVITY/V OLUME] IN SERUM OR PLASMA 58 U/L 40 - 150 04/09 Specimen Type: SERUM No comment entered. Ordering Provider: RONNIE YEPEZ Report Released Date/Time: Apr 05, 2024 04:09 PM Reporting Lab: [facility] [place] [facility] [address] [address] Performing Lab: [facility] [place] [facility] [address] [address] [facility] [place] [facility] LIVER FUNCTION ASPARTATE AMINOTRANS FERASE [ENZYMATIC ACTIVITY/V OLUME] IN SERUM OR PLASMA 21 U/L 5 - 34 04/09 Specimen Type: SERUM No comment entered. Ordering Provider: RONNIE YEPEZ Report Released Date/Time: Apr 05, 2024 04:09 PM Reporting Lab: [facility] [place] [facility] [address] [address] Performing Lab: [facility] [place] [facility] [address] [address] [facility] [place] [facility] LIVER FUNCTION ALANINE AMINOTRANS FERASE [ENZYMATIC ACTIVITY/V OLUME] IN SERUM OR PLASMA 25 U/L 04/09 Specimen Type: SERUM No comment entered. Ordering Provider: RONNIE YEPEZ Report Released Date/Time: Apr 05, 2024 04:09 PM Reporting Lab: [facility] [place] [facility] [address] [address] Performing Lab: [facility] [place] [facility] [address] [address] [facility] [place] [facility] LIVER FUNCTION BILIRUBIN. TOTAL [MASS/VOLU ME] IN SERUM OR PLASMA 0.9 mg/dL 0.2 - 1.2 04/09 Specimen Type: SERUM No comment entered. Ordering Provider: RONNIE YEPEZ Report Released Date/Time: Apr 05, 2024 04:09 PM Reporting Lab: [facility]PITALRTAYLOR HARD[facility] MED[facility] FACILITYTRN [facility] [address] [address] Performing Lab: [facility]PITALRTAYLOR HARDIN [facility] MEDICAL FACILITYTRN [facility] [address] [address] [facility]OSPITALRL TRN [facility]CHUSE [facility] MICROSCO PIC AUTOMATE D, URINE LEUKOCYTES [#/AREA] IN URINE SEDIMENT BY MICROSCOPY HIGH POWER FIELD 0-5/[HPF ] 0 - 5 04/09 Specimen Type: URINE Comment: If Glucose = >500 and Ketones are positive, please alert the Physician. Ordering Provider: RONNIE YEPEZ Report Released Date/Time: Apr 05, 2024 04:09 PM Reporting Lab: [facility]PITALRTAYLOR HARD[facility] MED[facility] FACILITYTRN [facility]AREUSE[address] [address] Performing Lab: [facility]OSPITALRL TRN [facility]USE[facility] [address] [address] [facility] HOSPITALRCITIZENS BAPTISTN [facility]AREUSE [facility] MICROSCO PIC AUTOMATE D, URINE ERYTHROCYT ES [#/AREA] IN URINE SEDIMENT BY MICROSCOPY HIGH POWER FIELD 0-2/[HPF ] 0 - 3 04/09 Specimen Type: URINE Comment: If Glucose = >500 and Ketones are positive, please alert the Physician. Ordering Provider: RONNIE YEPEZ Report Released Date/Time: Apr 05, 2024 04:09 PM Reporting Lab: [facility]OSPITALRL TRN [facility]USE[facility] [address] [address] Performing Lab: [facility]OSPITALRL TRN [facility] [address] [address] [facility] HOSPITALRCITIZENS BAPTISTN [facility]ARE[facility] TSH THYROTROPI N [UNITS/VOL UME] IN SERUM OR PLASMA 5.83 u[IU]/mL 0.35 - 5.00 04/09 H Specimen Type: SERUM No comment entered. Ordering Provider: RONNIE YEPEZ Report Released Date/Time: Apr 05, 2024 04:09 PM Reporting Lab: [facility]PITALRTAYLOR HARD[facility] MEDICAL FACILITYTRN [facility]AREUSE[address] [address] Performing Lab: [facility] [facility] [address] [address] [facility] [place] [facility] URINALYS IS CLEAN CATCH COLOR OF URINE Colorles s 04/09 Specimen Type: URINE Comment: If Glucose = >500 and Ketones are positive, please alert the Physician. Ordering Provider: RONNIE YEPEZ Report Released Date/Time: Apr 05, 2024 04:09 PM Reporting Lab: [facility] [facility] [address] [address] Performing Lab: [facility] [facility] [address] [address] [facility] [place] [facility] URINALYS IS CLEAN CATCH APPEARANCE OF URINE Clear 04/09 Specimen Type: URINE Comment: If Glucose = >500 and Ketones are positive, please alert the Physician. Ordering Provider: RONNIE YEPEZ Report Released Date/Time: Apr 05, 2024 04:09 PM Reporting Lab: [facility]PITALRL WSTRN [place] [facility] [address] [address] Performing Lab: [facility] [facility] [address] [address] [facility]OSPITALRL WSTRN [place] [facility] URINALYS IS CLEAN CATCH GLUCOSE [MASS/VOLU ME] IN URINE Normalmg /dL 04/09 Specimen Type: URINE Comment: If Glucose = >500 and Ketones are positive, please alert the Physician. Ordering Provider: RONNIE YEPEZ Report Released Date/Time: Apr 05, 2024 04:09 PM Reporting Lab: [facility] [facility] [address] [address] Performing Lab: [facility] [place] [facility] [address] [address] [facility]ITALRL WSTRN [place] [facility] URINALYS IS CLEAN CATCH KETONES [MASS/VOLU ME] IN URINE BY TEST STRIP NEGATIVE mg/dL 04/09 Specimen Type: URINE Comment: If Glucose = >500 and Ketones are positive, please alert the Physician. Ordering Provider: RONNIE YEPEZ Report Released Date/Time: Apr 05, 2024 04:09 PM Reporting Lab: [facility] [place] [facility] [address] [address] Performing Lab: [facility] [place] [facility] [address] [address] [facility] [place] [facility] URINALYS IS CLEAN CATCH ERYTHROCYT ES [PRESENCE] IN URINE SEDIMENT BY LIGHT MICROSCOPY NEGATIVE mg/dL 04/09 Specimen Type: URINE Comment: If Glucose = >500 and Ketones are positive, please alert the Physician. Ordering Provider: RONNIE YEPEZ Report Released Date/Time: Apr 05, 2024 04:09 PM Reporting Lab: [facility] [place] [facility] [address] [address] Performing Lab: [facility] [place] [facility] [address] [address] [facility] [place] [facility] URINALYS IS CLEAN CATCH PROTEIN [MASS/VOLU ME] IN URINE BY TEST STRIP NEGATIVE mg/dL 04/09 Specimen Type: URINE Comment: If Glucose = >500 and Ketones are positive, please alert the Physician. Ordering Provider: RONNIE YEPEZ Report Released Date/Time: Apr 05, 2024 04:09 PM Reporting Lab: [facility] [place] [facility] [address] [address] Performing Lab: [facility] [place] [facility] [address] [address] [facility] [place] [facility] URINALYS IS CLEAN CATCH NITRITE [PRESENCE] IN URINE NEGATIVE mg/dL 04/09 Specimen Type: URINE Comment: If Glucose = >500 and Ketones are positive, please alert the Physician. Ordering Provider: RONNIE YEPEZ Report Released Date/Time: Apr 05, 2024 04:09 PM Reporting Lab: [facility] [place] [facility] [address] [address] Performing Lab: [facility] [place] [facility] [address] [address] [facility] [place] [facility] URINALYS IS CLEAN CATCH BILIRUBIN. TOTAL [PRESENCE] IN URINE NEGATIVE mg/dL 04/09 Specimen Type: URINE Comment: If Glucose = >500 and Ketones are positive, please alert the Physician. Ordering Provider: RONNIE YEPEZ Report Released Date/Time: Apr 05, 2024 04:09 PM Reporting Lab: [facility]N [place] [facility] [address] [address] Performing Lab: [facility]PITALN [facility]SE[address] [address] [facility]N [place] [facility] URINALYS IS CLEAN CATCH SPECIFIC GRAVITY OF URINE BY REFRACTOME TRY 1.009 1.016 - 1.022 04/09 L Specimen Type: URINE Comment: If Glucose = >500 and Ketones are positive, please alert the Physician. Ordering Provider: RONNIE YEPEZ Report Released Date/Time: Apr 05, 2024 04:09 PM Reporting Lab: [facility]N [place] [address] Performing Lab: [facility]PITALRTAYLOR HARD[facility] MEDICAL FACILITYTRN [place] [facility] [address] [address] [facility]N [place] [facility] URINALYS IS CLEAN CATCH PH OF URINE BY TEST STRIP 6.5 5.0 - 9.0 04/09 Specimen Type: URINE Comment: If Glucose = >500 and Ketones are positive, please alert the Physician. Ordering Provider: RONNIE YEPEZ Report Released Date/Time: Apr 05, 2024 04:09 PM Reporting Lab: [facility]PITALRTAYLOR [facility]ARD[facility] MEDICAL FACILITYTRN [place] [address] [address] Performing Lab: [facility]ITALRTAYLOR [facility] MED[facility] FACILITYTRN [place] [address] [address] [facility]N [place] [facility] URINALYS IS CLEAN CATCH UROBILINOG EN [MASS/VOLU ME] IN URINE BY TEST STRIP Normalmg /dL <2.0 - 2.0 04/09 Specimen Type: URINE Comment: If Glucose = >500 and Ketones are positive, please alert the Physician. Ordering Provider: RONNIE YEPEZ Report Released Date/Time: Apr 05, 2024 04:09 PM Reporting Lab: [facility]ITALN [facility] [address] [address] Performing Lab: [facility] [address] [address] [facility] URINALYS IS CLEAN CATCH LEUKOCYTE ESTERASE [PRESENCE] IN URINE BY TEST STRIP TRACE 04/09 Specimen Type: URINE Comment: If Glucose = >500 and Ketones are positive, please alert the Physician. Ordering Provider: RONNIE YEPEZ Report Released Date/Time: Apr 05, 2024 04:09 PM Reporting Lab: [facility] [address] [address] Performing Lab: [facility] [address] [address] [facility] CREATINI NE EGFR PANEL CREATININE [MASS/VOLU ME] IN SERUM OR PLASMA 1.10 mg/dL 0.5 - 1.5 07/12 Specimen Type: PLASMA No comment entered. Ordering Provider: EMMY HARTMANN Report Released Date/Time: Jul 11, 2023 09:21 AM Reporting Lab: [facility] [address] [facility] [address] Performing Lab: [facility] [address] [facility] [address] [facility] CREATINI NE EGFR PANEL GLOMERULAR FILTRATION RATE/1.73 SQ M.PREDICTE D [VOLUME RATE/AREA] IN SERUM, PLASMA OR BLOOD BY CREATININE -BASED FORMULA (CKD-EPI 2020) 66 60 07/12 Specimen Type: PLASMA No comment entered. Ordering Provider: EMMY HARTMANN Report Released Date/Time: Jul 11, 2023 09:21 AM Reporting Lab: [facility] [address] [facility] [address] Performing Lab: [facility] [address] [facility] [address] [facility] BASIC METABOLI C PANEL (fasting ) UREA NITROGEN [MASS/VOLU ME] IN SERUM OR PLASMA 18 mg/dL 7 - 25 04/09 Specimen Type: SERUM No comment entered. Ordering Provider: RONNIE YEPEZ Report Released Date/Time: Apr 07, 2023 04:15 PM Reporting Lab: [facility] [place] [facility] [address] [address] Performing Lab: [facility] [place] [facility] [address] [address] [facility] [place] [facility] BASIC METABOLI C PANEL (fasting ) GLUCOSE [MASS/VOLU ME] IN SERUM OR PLASMA 109 mg/dL 65 - 100 04/09 H Specimen Type: SERUM No comment entered. Ordering Provider: RONNIE YEPEZ Report Released Date/Time: Apr 07, 2023 04:15 PM Reporting Lab: [facility] [facility] [address] [address] Performing Lab: [facility] [address] [address] [facility]PITALRL WSTRN [place] [facility] BASIC METABOLI C PANEL (fasting ) SODIUM [MOLES/VOL UME] IN SERUM OR PLASMA 139 mmol/L 135 - 145 04/09 Specimen Type: SERUM No comment entered. Ordering Provider: RONNIE YEPEZ Report Released Date/Time: Apr 07, 2023 04:15 PM Reporting Lab: [facility] [place] [facility] [address] [address] Performing Lab: [facility] [place] [address] [address] [facility] [place] [facility] BASIC METABOLI C PANEL (fasting ) POTASSIUM [MOLES/VOL UME] IN SERUM OR PLASMA 4.3 mmol/L 3.5 - 5.0 04/09 Specimen Type: SERUM No comment entered. Ordering Provider: RONNIE YEPEZ Report Released Date/Time: Apr 07, 2023 04:15 PM Reporting Lab: [facility] [place] [facility] [address] [address] Performing Lab: [facility] [place] [facility] [address] [address] [facility] [place] [facility] BASIC METABOLI C PANEL (fasting ) CHLORIDE [MOLES/VOL UME] IN SERUM OR PLASMA 105 mmol/L 100 - 110 04/09 Specimen Type: SERUM No comment entered. Ordering Provider: RONNIE YEPEZ Report Released Date/Time: Apr 07, 2023 04:15 PM Reporting Lab: [facility]N [address] [address] Performing Lab: [address] [address] [facility]N [facility] BASIC METABOLI C PANEL (fasting ) CARBON DIOXIDE, TOTAL [MOLES/VOL UME] IN SERUM OR PLASMA 25 meq/L 20 - 30 04/09 Specimen Type: SERUM No comment entered. Ordering Provider: RONNIE YEPEZ Report Released Date/Time: Apr 07, 2023 04:15 PM Reporting Lab: [address] [address] Performing Lab: [address] [address] [facility] BASIC METABOLI C PANEL (fasting ) CREATININE [MASS/VOLU ME] IN SERUM OR PLASMA 1.00 mg/dL 0.50 - 1.40 04/09 Specimen Type: SERUM No comment entered. Ordering Provider: RONNIE YEPEZ Report Released Date/Time: Apr 07, 2023 04:15 PM Reporting Lab: [facility]N [address] [address] Performing Lab: [facility]OSPITALRCITIZENS BAPTISTN [address] [address] [facility] BASIC METABOLI C PANEL (fasting ) GLOMERULAR FILTRATION RATE/1.73 SQ M.PREDICTE D [VOLUME RATE/AREA] IN SERUM, PLASMA OR BLOOD BY CREATININE -BASED FORMULA (CKD-EPI 2020) 74 mL/min 60 04/09 Specimen Type: SERUM No comment entered. Ordering Provider: RONNIE YEPEZ Report Released Date/Time: Apr 07, 2023 04:15 PM Reporting Lab: [facility]PITALRCITIZENS BAPTISTN [address] [place] [address] Performing Lab: [facility] [place] [facility] [address] [address] [facility] [place] [facility] TSH THYROTROPI N [UNITS/VOL UME] IN SERUM OR PLASMA 3.65 u[IU]/mL 0.35 - 5.00 04/09 Specimen Type: SERUM No comment entered. Ordering Provider: RONNIE YEPEZ Report Released Date/Time: Apr 07, 2023 04:15 PM Reporting Lab: [facility] [place] [facility] [address] [address] Performing Lab: [facility] [place] [facility] [address] [address] [facility] [place] [facility] Vital Signs Combined list of inpatient and outpatient Vital Signs from Department of Defense and Veterans Affairs, ranging from 12 months to all on record, depending upon the facility. Vital Sign Value Date Comments Source SYSTOLIC BLOOD PRESSURE 140 04/21/20 24 13:29:02 [facility] [place] [facility] DIASTOLIC BLOOD PRESSURE 80 024 13:29:02 [facility] [place] [facility] PULSE OXIMETRY 98 04/21/2024 13:29:02 [facility] [facility] PAIN 0 04/21/2024 13:29:02 [facility] [place] [facility] PULSE 70 04/21/2024 13:29:02 [facility] [place] [facility] RESPIRATION 20 04/21/2024 13:29:02 [facility] [place] [facility] SYSTOLIC BLOOD PRESSURE 145 04/18/20 24 08:27:34 [facility] [place] [facility] DIASTOLIC BLOOD PRESSURE 81 024 08:27:34 [facility] [place] [facility] PULSE OXIMETRY 96 04/18/2024 08:27:34 [facility] [place] [facility] WEIGHT 229.7 04/18/2024 08:27:34 [facility] [place] [facility] BMI 31kg/m2 04/18/2024 08:27:34 [facility] [place] [facility] PAIN 0 04/18/2024 08:27:34 [facility] [place] [facility] HEIGHT 72 04/18/2024 08:27:34 [facility] [place] [facility] TEMPERATURE 98.1 04/18/2024 08:27:34 [facility] [place] [facility] PULSE 67 04/18/2024 08:27:34 [facility] [place] [facility] RESPIRATION 16 04/18/2024 08:27:34 [facility] [place] [facility] TEMPERATURE 97.4 12/31/2023 12:59:06 [facility] [place] [facility] SYSTOLIC BLOOD PRESSURE 155 07/12/19 24 15:05:47 [facility] DIASTOLIC BLOOD PRESSURE 78 024 15:05:47 [facility] PULSE OXIMETRY 96% 07/12/2023 15:05:47 [facility] WEIGHT 225.4 07/12/2023 15:05:47 [facility] PAIN 0 07/12/2023 15:05:47 [facility] TEMPERATURE 97.1 07/12/2023 15:05:47 [facility] PULSE 68 07/12/2023 15:05:47 [facility] RESPIRATION 18 07/12/2023 15:05:47 [facility] SYSTOLIC BLOOD PRESSURE 150 06/07/20 23 13:30:48 [facility] DIASTOLIC BLOOD PRESSURE 74 023 13:30:48 [facility] PULSE OXIMETRY 99% 06/07/2023 13:30:48 [facility] WEIGHT 220 06/07/2023 13:30:48 [facility] PAIN 0 06/07/2023 13:30:48 [facility] TEMPERATURE 97.1 06/07/2023 13:30:48 [facility] PULSE 69 06/07/2023 13:30:48 [facility] RESPIRATION 16 06/07/2023 13:30:48 [facility] Encounters Combined list of: 1) Encounters from Department of Veterans Affairs facilities going back up to thelast 18 months. 2) Encounters from the Department of Defense facilities going back up to 280 months. Location Location Details Encounter Type Encounter Number Reason For Visit Attending Provider ADM Date DC Date Status Disposition Source [facility] [place] [facility] OFFICE O/P EST LOW 20-29 MIN [id number] Diagnos is: ICD-10- CM M21.371 Foot drop, right foot
Ronald OSORIO AVID 12/22 [facility] [place] [facility] Outpatient Encounter [id number] 04/10 [facility] [place] OFFICE O/P EST LOW 20-29 MIN [id number] Diagnos is: ICD-10- CM I10 Essenti al (primar y) hyperte nsion<b r/> JESSICA YEPEZ RD D 04/16 [facility] OFF/OP EST MAY X REQ PHY/QHP [id number] Diagnos is: ICD-10- CM Z23 Encount er for immuniz ation<b r/> JESSICA YEPEZ RD D 04/25 [facility] OFFICE O/P EST LOW 20-29 MIN [id number] Diagnos is: ICD-10- CM I89.0 Lymphed milo, not elsewhe re classif ied<br/ > SCOTT SANTIAGO D 05/22 [facility] Outpatient Encounter [id number] 06/04 [facility] OFFICE O/P EST SF 10-19 MIN [id number] Diagnos is: ICD-10- CM R60.9 Edema, unspeci fied
SCOTT SANTIAGO RLENDY D 06/05 [facility] OFFICE O/P NEW MOD 45-59 MIN [id number] Diagnos is: ICD-10- CM I87.2 Venous insuffi ciency (chroni c) (periph eral)<b r/> TOBIAS MEEHAN MD 06/07 [facility] ORTHOTIC MGMT&TRAIN G 1ST ENC [id number] Diagnos is: ICD-10- CM R60.0 Localiz ed edema<b r/> Ruddy ESTRADA ACK 06/07 [facility] Outpatient Encounter [id number] Ruddy ESTRADA ACK 06/08 [facility] OFFICE O/P EST LOW 20 MIN [id number] [id number] Diagnos is: ICD-10- CM I89.0 Lymphed milo, not elsewhe re classif ied<br/ > SA JEF ALMAGUER 07/12 [facility] Outpatient Encounter [id number] EMA BAKER 08/16 [facility] OFFICE O/P EST MOD 30 MIN [id number] Diagnos is: ICD-10- CM M21.371 Foot drop, right foot
SCOTT SANTIAGO RLENDY D 10/01 [facility] Outpatient Encounter [id number] 10/03 [facility] Outpatient Encounter [id number] SCOTT SANTIAGO RLENDY D 11/29 [facility] [place] [facility] Outpatient Encounter [id number] 12/10 [facility] [place] [facility] [place] [facility] OFFICE O/P EST LOW 20 MIN [id number] Diagnos is: ICD-10- CM R60.0 Localiz ed edema<b r/> PAMELASCOTT D 12/30 [facility] [place] [facility] [place] [facility] DIABETIC CUSTOM MOLDED SHOE [id number] Diagnos is: ICD-10- CM M20.40 Other hammer toe(s) (acquir ed), unspeci fied foot
GALA DE LA CRUZ ANJUM 01/16 [facility] [place] [facility] [place] [facility] DIABETIC CUSTOM MOLDED SHOE [id number] Diagnos is: ICD-10- CM M21.371 Foot drop, right foot
ROSMERYDI JUAN M 02/04 [facility] [place] [facility] [place] [facility] OFFICE O/P EST LOW 20 MIN [id number] Diagnos is: ICD-10- CM I10 Essenti al (primar y) hyperte nsion<b r/> JESSICA YEPEZ RD D 04/18 [facility] [place] [facility] [place] [facility] ADMN SARSCOV2 VACC 1 DOSE [id number] D 04/18 [facility] [place] [facility] [place] [facility] OFF/OP CONSLTJ NEW/[place] HI 55 [id number] Diagnos is: ICD-10- CM M21.371 Foot drop, right foot
JOEY ZHENG FORTINO THI 04/21 [facility] [place] [facility] [place] [facility] Outpatient Encounter [id number] 04/21 [facility] [place] [facility] [place] [facility] Outpatient Encounter [id number] 05/05 [facility] [place] [facility] Social History Combined list of available smoking, tobacco, and other social history from Department of Defense and Veterans Affairs facilities. Social History Type Response Date Comment Sour e Tobacco smoking status NHIS VA-TOBACCO NEVER USED 04/18/2024 [facility] [place] [facility] History of tobacco use MS-TOBACCO NEVER USED 04/16/2023 [facility] History of tobacco use VA-TOBACCO NEVER USED 05/09/2022 [facility] History of tobacco use VA-TOBACCO NEVER USED 05/10/2021 [facility] History of tobacco use VA-TOBACCO NEVER USED 05/17/2020 [facility] [place] [facility] History of tobacco use VA-TOBACCO NEVER USED 04/15/2018 [facility] [place] [facility] History of tobacco use LIFETIME NON-TOBACCO USER 04/17/2017 [facility] [place] [facility] History of tobacco use LIFETIME NON-TOBACCO USER 04/13/2016 [facility] [place] [facility] History of tobacco use FORMER SMOKER - <100 LIFETIME CIGARETTES 04/20/2010 [facility] [place] [facility] History of tobacco use HISTORY OF SMOKING 08/12/2004 [facility] [place] [facility] History of tobacco use HISTORY OF SMOKING 05/29/2003 [facility] [place] [facility] Plan of Care List of future care activities from Department of Veterans Affairs facilities. Additional future care activities may be listed in the Assessment and Plan section. Date/Time Care Activity Care Activity Detail Facili ty 07/14/2024 AMBULATORY - SURGERY AMBULATORY - SURGERY [facility]
--- OUTSIDE RECORDS SUMMARY | 2024-05-28 18:49 | XMS_ITS | Encounter Summary ---
Author Name [facility] [place] [facility] [place] [facility] [place] Address [address] [place] [address] Care Team Providers Care Voting Machine Repairer Name Role Phone TERRY YEPEZ Primary Care Provider Unavailabl e Insurance Providers: All historical and current Section Date Range: From patient's date of to the date document was created. This section includes the names of all active insurance providers for the patient. Insurance Provider Type of Coverage Plan Name Start of Policy Coverage End of Policy Coverage Group Number Member ID Insurance Provider's Telephone Number Policy Celeste's Name Patient's Relationship to Policy Celeste RUSS [employer] MED[place] C PSUED O MEDEX [place]ON[place] E October 17, 2003 [id number] DAKOTA DUDLEY CHARRonald PATIENT [place] MED[place]ARE SUPPLEMEN RYAN MEDEX [place] E October 17, 2003 [id number] DAKOTA DUDLEY CHARD PATIENT [place] MED[place] SUPPLEMEN RYAN MEDEX [place] E October 17, 2003 [id number] DAKOTA DUDLEY CHARD PATIENT BCBS [facility] MEDICARE SUPPLEMEN RYAN PSUED O MEDEX [place] E October 17, 2003 [id number] DAKOTA DUDLEY CHARRonald PATIENT MEDICARE (WNR) MEDICARE (M) PART A October 17, 2003 PART A [id number] DAKOTA DUDLEY PATIENT MEDICARE (WNR) MEDICARE (M) PART B October 17, 2003 PART B [id number] DAKOTA DUDLEY PATIENT MEDICARE (WNR) MEDICARE (M) PART A October 17, 2003 PART A [id number] DAKOTA DUDLEY PATIENT MEDICARE (WNR) MEDICARE (M) PART B October 17, 2003 PART B [id number] DAKOTA DUDLEY PATIENT MEDICARE (WNR) MEDICARE (M) PART A October 17, 2003 PART A [id number] [phone] DAKOTA DUDLEY PATIENT MEDICARE (WNR) MEDICARE (M) PART B October 17, 2003 PART B [id number] DAKOTA DUDLEY PATIENT Selected Encounter This section includes the information on record at [place] for the Encounter. Date/Time Encounter Type Encounter Description Reason Pro vider Source Oct 04, 2023 04:52 PM Outpatient Encounter PROSTHETICS/ORTHOTICS IHE Encounter Template Text not used by [place] Plan of Treatment: Future Appointments (+ 6 months) and Future Tests (+/- 45 days) The Plan of Treatment section includes future care activities for the patient from all [place] treatmentfacilities. This section includes future appointments and future orders which are active, pending or scheduled. Future Appointments This section includes appointments that were scheduled to occur 6 months from the date of the Encounter, up to a maximum of 20 appointments. The data comes from all [place] treatment facilities. Appointment Date/Time Appointment Type Appointme nt Facility Name Dec 31, 2023 01:00 PM [place] [facility] [facility] Jan 17, 2024 09:00 AM [place] [facility] [place] [facility] Feb 05, 2024 01:30 PM [place] [facility] [facility] Encounter Notes: All associated encounter notes This section contains the clinical notes associated to the Encounter. Date/Time Encounter Note(s) Provider Source Oct 04, 2023 05:02 PM ORTHOTICS PROSTHET ICS CONSULT: LOCAL TITLE: CONSULT /PROSTHETIC ORTHOTICS STANDARD TITLE: ORTHOTICS PROSTHETICS CONSULT DATE OF NOTE: OCT 04, 2023@17:02 ENTRY DATE: OCT 04, 2023@17:03:23 AUTHOR: OZIEL ESTRADA COSIGNER: URGENCY: STATUS: COMPLETED Consult received and reviewed. An administrative consult has been entered to order Circaids to be mailed to the patient. To be seen PRN /tha/ OZIEL ESTRADA Manager Data Warehousing Signed: 10/04/2023 17:06 OZIEL ESTRADA [facility]
--- OUTSIDE RECORDS SUMMARY | 2024-05-28 18:49 | XMS_ITS | Encounter Summary ---
Author Name [facility] [place] [facility] [place] Address [address] [place] [id number] Care Team Providers Care Chief Learning Officer Name Role Phone TERRY YEPEZ Primary Care [...] Celeste's Name Patient's Relationship to Policy Celeste URSS [place] C PSUED O MEDEX [place]ON[place] E October 17, 2003 [id number] [phone] DAKOTA DUDLEY CHARRonald PATIENT [place] MEDICARE SUPPLEMEN RYAN MEDEX [place]Z E October 17, 2003 [id number] [phone] DAKOTA DUDLEY CHARD PATIENT [place] MED[place] SUPPLEMEN RYAN MEDEX [place] E October 17, 2003 [id number] DAKOTA DUDLEY CHARD PATIENT BCBS [facility] MEDICARE SUPPLEMEN RYAN PSUED O MEDEX BRONZ E October 17, 2003 [id number] [phone] DAKOTA DUDLEY CHARRonald PATIENT MEDICARE (WNR) MEDICARE (M) PART A October 17, 2003 PART A [id number] DAKOTA DUDLEY PATIENT MEDICARE (WNR) MEDICARE (M) PART B October 17, 2003 PART B [id number] DAKOTA DUDLEY PATIENT MEDICARE (WNR) MEDICARE (M) PART A October 17, 2003 PART A [id number] DAKOTA DUDLEY PATIENT MEDICARE (WNR) MEDICARE (M) PART B October 17, 2003 PART B [id number] DAKOTA DUDLEY PATIENT MEDICARE (WNR) MEDICARE (M) PART A October 17, 2003 PART A [id number] DAKOTA DUDLEY PATIENT MEDICARE (WNR) MEDICARE (M) PART B October 17, 2003 PART B [id number] DAKOTA DUDLEY PATIENT Selected Encounter This section includes the information on record at [place] for the Encounter. Date/Time Encounter Type Encounter Description Reason Provider Source Aug 17, 2023 12:26 PM Outpatient Encounter PROSTHETICS/ORTHOTI ANNIE GERMAIN IHPhilip Encounter Template Text not used by [place] Plan of Treatment: Future Appointments (+ 6 months) and Future Tests (+/- 45 days) The Plan of Treatment section includes future care activities for the patient from all [place] treatmentfacilities. This section includes future appointments and future orders which are active, pending or scheduled. Future Appointments This section includes appointments that were scheduled to occur 6 months from the date of the Encounter, up to a maximum of 20 appointments. The data comes from all [place] treatment facilities. Appointment Date/Time Appointment Type Appointme nt Facility Name Oct 02, 2023 01:00 PM [place] [facility] [place] [place] [facility] Dec 31, 2023 01:00 PM [place] [facility] [place] [facility] Jan 17, 2024 09:00 AM [place] [facility] [place] [place] [facility] Feb 05, 2024 01:30 PM [place] [facility] [place] [facility]
--- OUTSIDE RECORDS SUMMARY | 2024-05-28 18:50 | XMS_ITS | Encounter Summary ---
Author Name [facility] [place] [facility] [place] Address [address] [place] [address] Care Team Providers Care Wirer Street Light Name Role Phone TERRY YEPEZ Primary Care [...] Relationship to Policy Celeste RUSS [place] MED[place]AP PLAN C PSUED O MEDEX [place]ONZ E October 17, 2003 [id number] [phone] DAKOTA DUDLEY CHARD PATIENT BCBS [place] MEDICARE SUPPLEMEN RYAN MEDEX [place] E October 17, 2003 [id number] [phone] [place] CHARD PATIENT [place] MED[place] SUPPLEMEN RYAN MEDEX [place] E October 17, 2003 [id number] [phone] DAKOTA DUDLEY CHARD PATIENT BCBS [facility] MEDICARE SUPPLEMEN RYAN PSUED O MEDEX BRONZ E October 17, 2003 [id number] [phone] DAKOTA DUDLEY CHARRonald PATIENT MEDICARE (WNR) MEDICARE (M) PART A October 17, 2003 PART A [id number] DAKOTA DUDLEY PATIENT MEDICARE (WNR) MEDICARE (M) PART B October 17, 2003 PART B [id number] DAKOTA DUDLEY PATIENT MEDICARE (WNR) MEDICARE (M) PART A October 17, 2003 PART A [id number] DAKOTA DUDLEY PATIENT MEDICARE (WNR) MEDICARE (M) PART B October 17, 2003 PART B [id number] DAKOTA DUDLEY PATIENT MEDICARE (WNR) MEDICARE (M) PART A October 17, 2003 PART A [id number] DAKOTA DUDLEY PATIENT MEDICARE (WNR) MEDICARE (M) PART B October 17, 2003 PART B [id number] DAKOTA DUDLEY PATIENT Selected Encounter This section includes the information on record at [place] for the Encounter. Date/Time Encounter Type Encounter Description Reason Provider Source Jun 07, 2023 02:00 PM ORTHOTIC MGMT&TRAING 1ST ENC PROSTHETICS/ORTHO TICS ICD-10-CM R60.0 Localized edema OZIEL ESTRADA Philip Encounter Template Text not used by [place] Assessments - Encounter Diagnoses This section includes the primary and secondary diagnoses documented for the Encounter. Date/Time Primary/Secondary Diagnosis Diagnosis Name Provider Source Jun 07, 2023 03:09 PM PRIMARY Localized edema OZIEL ESTRADA [facility] Plan of Treatment: Future Appointments (+ 6 months) and Future Tests (+/- 45 days) The Plan of Treatment section includes future care activities for the patient from all [place] treatmentfacilities. This section includes future appointments and future orders which are active, pending or scheduled. Future Appointments This section includes appointments that were scheduled to occur 6 months from the date of the Encounter, up to a maximum of 20 appointments. The data comes from all [place] treatment facilities. Appointment Date/Time Appointment Type Appointme nt Facility Name Jul 12, 2023 01:30 PM AMBULATORY - NONE [facility] Jul 12, 2023 02:30 PM AMBULATORY - SURGERY [facility] Jul 12, 2023 03:00 PM AMBULATORY - SURGERY [facility] Oct 02, 2023 01:00 PM AMBULATORY - MEDICINE [place] [facility] Vital Signs: All taken on the encounter date This section contains inpatient and outpatient Vital Signs collected on the date of the Encounter. Date/Time Temperature Pulse Blood Pressure Respiratory Rate SP02 Pain Height Weight Body Mass Index Source Jun 07, 2023 01:30 PM 97.1 F 69 /min 150/74 mm[Hg] 16 /min 99 % 0 220 lb [facility] Encounter Notes: All associated encounter notes This section contains the clinical notes associated to the Encounter. Date/Time Encounter Note(s) Provider Source Jun 07, 2023 03:05 PM ORTHOTICS PROSTHET ICS CONSULT: LOCAL TITLE: CONSULT /PROSTHETIC ORTHOTICS STANDARD TITLE: ORTHOTICS PROSTHETICS CONSULT DATE OF NOTE: JUN 07, 2023@15:05 ENTRY DATE: JUN 07, 2023@15:05:56 AUTHOR: OZIEL ESTRADA COSIGNER: URGENCY: STATUS: COMPLETED Prosthetic Progress Note ILAN DUDLEY Appointment Date: 06/07/23 14:00 Evaluation Patient evaluated for prescribed device. Diagnosis Right lower extremity edema Prescribed Item(s) Circaid Patient was measured and/or cast. Right ankle=27.5cm, calf=33.5cm Delivery Delivery of device was acceptable. Delivered Item: 1 medium Circaid Juxtalite compression garment and 2 packages of under socks. Patient was able to don independently and/or has access to the needed assistance to use the device properly. Patient has been provided with instruction on the use, care, and cleaning of the device. Fit and function of the device meets the patient's needs. The device have been inspected and/or serviced to ensure no defects. Follow up with patient PRN. /tha/ OZIEL ESTRADA Inter Fold Roll Cutter Signed: 06/07/2023 15:09 OZIEL ESTRADA [facility]
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
--- OUTSIDE RECORDS SUMMARY | 2024-05-28 18:50 | XMS_ITS | Encounter Summary ---
Author Name [facility] [place] Organization [place] Address [address] [place] [id number] Care Team Providers Care Clinical Services Specialist Name Role Phone TERRY YEPEZ Primary Care [...] Relationship to Policy Celeste RUSS BCBS OF [place] MEDIGAP PLAN C PSUED O MEDEX BRONZ E October 17, 2003 [id number] DAKOTA DUDLEY CHARRonald PATIENT [place] MED[place] SUPPLEMEN RYAN MEDEX BRONZ E October 17, 2003 [id number] [phone] DAKOTA DUDLEY CHARD PATIENT [place] MED[place] SUPPLEMEN RYAN MEDEX BRONZ E October 17, 2003 [id number] DAKOTA DUDLEY CHARRonald PATIENT BCBS [facility] MEDICARE SUPPLEMEN RYAN PSUED O MEDEX BRONZ E October 17, 2003 [id number] DAKOTA DUDLEY CHARRonald PATIENT MEDICARE (WNR) MEDICARE (M) PART A October 17, 2003 PART A [id number] DAKOTA DUDLEY CHARRonald PATIENT MEDICARE (WNR) MEDICARE (M) PART B October 17, 2003 PART B [id number] DAKOTA DUDLEYD PATIENT MEDICARE (WNR) MEDICARE (M) PART A October 17, 2003 PART A [id number] [phone] DAKOTA DUDLEY CHARD PATIENT MEDICARE (WNR) MEDICARE (M) PART B October 17, 2003 PART B [id number] DAKOTA DUDLEY PATIENT MEDICARE (WNR) MEDICARE (M) PART A October 17, 2003 PART A [id number] DAKOTA DUDLEY PATIENT MEDICARE (WNR) MEDICARE (M) PART B October 17, 2003 PART B [id number] DAKOTA DUDLEY PATIENT Selected Encounter This section includes the information on record at [place] for the Encounter. Date/Time Encounter Type Encounter Description Reason Provider Source Jun 07, 2023 01:30 PM OFFICE O/P NEW MOD 45-59 MIN VASCULAR SURGERY ICD-10-CM I87.2 Venous insufficiency (chronic) (peripheral) TERELL MEEHAN MD [facility] Encounter Template Text not used by [place] Assessments - Encounter Diagnoses This section includes the primary and secondary diagnoses documented for the Encounter. Date/Time Primary/Secondary Diagnosis Diagnosis Name Provider Source Jul 04, 2023 05:49 AM PRIMARY Venous insufficiency (chronic) (peripheral) TERELL MEEHAN MD [facility] Plan of Treatment: Future Appointments (+ [...] 12, 2023 01:30 PM AMBULATORY - NONE [facility] Jul 12, 2023 02:30 PM AMBULATORY - SURGERY [facility] Jul 12, 2023 03:00 PM AMBULATORY - SURGERY [facility] Oct 02, 2023 01:00 PM AMBULATORY - MEDICINE [place] [facility] Vital Signs: All taken on the encounter date This section contains inpatient and outpatient Vital Signs collected on the date of the Encounter. Date/Time Temperature Pulse Blood Pressure Respiratory Rate SP02 Pain Height Weight Body Mass Index Source Jun 07, 2023 01:30 PM 97.1 F 69 /min 150/74 mm[Hg] 16 /min 99 % 0 220 lb [facility] Encounter Notes: All associated encounter notes This section contains the clinical notes associated to the Encounter. Date/Time Encounter Note(s) Provider Source Jun 07, 2023 01:47 PM VASCULAR SURGERY CONSULT: LOCAL TITLE: Consult /Vascular Surgery STANDARD TITLE: VASCULAR SURGERY CONSULT DATE OF NOTE: JUN 07, 2023@13:47 ENTRY DATE: JUN 07, 2023@13:47:57 AUTHOR: TERELL MEEHAN MD EXP COSIGNER: URGENCY: STATUS: COMPLETED cc: RLE edema HPI: 82 yom with 4M marked edema RLE, no wounds/ulcers. No problem with LLE. Has trialed different compression stockings (currently 15-20) and was unable to tolerate the flexitouch system due to leg cramping. PMH list CPRS: Active Problem Permanent cardiac pacemaker R69., O 04/15/2018 TERRY YEPEZ Essential hypertension I10. 04/12/2015 TERRY YEPEZ Impaired fasting glucose R73.01 04/12/2015 TERRY YEPEZ Atrial Fibrillation * (ICD-9-CM 427 05/28/2012 TERRY YEPEZ Atrial Flutter * (ICD-9-CM 427.32) 04/20/2010 TERRY YEPEZ Rosacea * (ICD-9-CM 695.3) 695.3 03/01/2006 ALFONSO ARCINIEGA Superficial basal cell carcinoma 17 02/28/2006 ALFONSO ARCINIEGA Colonoscopy 799.9 06/26/2005 ALFONSO ARCINIEGA Primary HYPERPARATHYROIDISM 252.01 06/26/2005 ALFONSO ARCINIEGA Hyperlipidemia * (ICD-9-CM 272.4) 2 06/26/2005 ALFONSO ARCINIEGA Acute sinusitis (ICD-9-CM 461.9) 46 06/26/2005 ALFONSO ARCINIEGA HYPERTENSION 401.9 08/12/2004 EMILY RODRIGUEZ HEADACHE 784.0 08/12/2004 EMILY RODRIGUEZ SINUSITIS, CHRONIC 473.9 08/12/2004 EMILY RODRIGUEZ Melanoma of Skin (ICD-9-CM 172.9) 1 08/12/2004 EMILY RODRIGUEZ Active Out Patient medications: Active Outpatient Medications (including Supplies): Active Non-VA Medications Status 1) Non-VA FUROSEMIDE 20MG TAB 20MG BY MOUTH EVERY DAY ACTIVE 2) Non-VA LEVOTHYROXINE NA (SYNTHROID) 50MCG TAB 0.05MG ACTIVE BY MOUTH EVERY DAY 3) Non-VA LISINOPRIL 20MG TAB 20MG BY MOUTH EVERY DAY ACTIVE 4) Non-VA METOPROLOL SUCCINATE TAB,SA 12.5MG BY MOUTH ACTIVE EVERY DAY 5) Non-VA MULTIVITAMIN/MINERALS CAP/TAB 1 TABLET BY ACTIVE MOUTH 6) Non-VA SIMVASTATIN 40MG TAB 20MG BY MOUTH AT BEDTIME ACTIVE 7) Non-VA ZZWARFARIN NA (MOORE STATE) 10MG TAB ACTIVE DIRECTED BY MOUTH WITH DIRECTIONS PROVIDED FROM THE [facility]ADIN CLINIC PE Awake, alert, comfortable Ext: RLE 2+ edema through calf/ankle/forefoot. 2+ DP pulse; some hemosiderin staining; now wounds/ulcers A/P 82 yom with relatively new/abrupt onset RLE lymphedema. Will trial circaid wraps today (seen by Juan in Prosthetics); also will trial Koya compression pump as tactile device wasn't tolerated. Will plan to RTC here 1 month for reflux studies and will get CT abdomen at that time to r/o abdominal mass. /es/ TERELL MEEHAN MD SURGICAL ATTENDING Signed: 06/07/2023 13:51 TERELL MEEHAN MD [facility]
--- OUTSIDE RECORDS SUMMARY | 2024-05-28 18:52 | XMS_ITS | Encounter Summary ---
Author Name [facility] [facility] [place] Address [address] [place] [address] Care Team Providers Care Kettle Firer Name Role Phone TERRY YEPEZ Primary Care [...] Relationship to Policy Celeste RUSS [place] PSUED O MEDEX BRONZ E October 17, 2003 [id number] OCTAVIA,DAKOTA CHARD PATIENT [place]BS [place] MEDICARE SUPPLEMEN RYAN MEDEX BRONZ E October 17, 2003 [id number] OCTAVIA,RI CHARD PATIENT BCBS [place] MEDICARE SUPPLEMEN RYAN MEDEX BRONZ E October 17, 2003 [id number] [phone] DAKOTA DUDLEY CHARD PATIENT BCBS OF [facility] MEDICARE SUPPLEMEN RYAN PSUED O MEDEX BRONZ E October 17, 2003 [id number] DAKOTA DUDLEY CHARRonald PATIENT MEDICARE (WNR) MEDICARE (M) PART A October 17, 2003 PART A [id number] DAKOTA DUDLEY PATIENT MEDICARE (WNR) MEDICARE (M) PART B October 17, 2003 PART B [id number] DAKOTA DUDLEY PATIENT MEDICARE (WNR) MEDICARE (M) PART A October 17, 2003 PART A [id number] [phone] DAKOTA DUDLEY PATIENT MEDICARE (WNR) MEDICARE (M) PART B October 17, 2003 PART B [id number] [phone] DAKOTA DUDLEY PATIENT MEDICARE (WNR) MEDICARE (M) PART A October 17, 2003 PART A [id number] DAKOTA DUDLEY PATIENT MEDICARE (WNR) MEDICARE (M) PART B October 17, 2003 PART B [id number] DAKOTA DUDLEY PATIENT Selected Encounter This section includes the information on record at [place] for the Encounter. Date/Time Encounter Type Encounter Description Reason Provider Source Apr 18, 2024 08:30 AM ADMN SARSCOV2 VACC 1 DOSE PRIMARY CARE/MEDICINE ICD-10-CM Z23. Encounter for immunization TERRY YEPEZ Philip Encounter Template Text not used by [place] Assessments - Encounter Diagnoses This section includes the primary and secondary diagnoses documented for the Encounter. Date/Time Primary/Secondary Diagnosis Diagnosis Name Provider Source Apr 18, 2024 08:30 AM SECONDARY Encounter for immunization [facility]A MASON [facility] Plan of Treatment: Future Appointments (+ 6 months) and Future Tests (+/- 45 days) The Plan of Treatment section includes future care activities for the patient from all [place] treatmentfacilities. This section includes future appointments and future orders which are active, pending or scheduled. Future Appointments This section includes appointments that were scheduled to occur 6 months from the date of the Encounter, up to a maximum of 20 appointments. The data comes from all [place] treatment facilities. Appointment Date/Time Appointment Type Appointme nt Facility Name Apr 21, 2024 01:30 PM AM[facility] Jul 14, 2024 01:00 PM AMBULATORY - SURGERY [facility] Lab Results: +/- 30 days of the encounter This section includes the Chemistry and Hematology Lab Results on record with [place] for the patient. Radiology Reports and Pathology Reports are provided separately, in subsequent sections. Lab Results This section contains the Chemistry/Hematology Results that were resulted 30 days before or 30 daysafter the date of the Encounter. Date/Time Source Result Type Result - Unit Interpretation Reference Range Comment Apr 09, 2024 10:53 AM [facility] TSH Specimen Type: SERUM No comment entered. Ordering Provider: TERRY YEPEZ Report Released Date/Time: Apr 05, 2024 04:09 PM Reporting Lab: [address] [address] Performing Lab: [address] [address] TSH 5.83 u[IU]/mL H 0.35-5.00 Apr 09, 2024 10:53 AM [facility] LIPID PANEL FASTING Specimen Type: SERUM No comment entered. Ordering Provider: TERRY YEPEZ Report Released Date/Time: Apr 05, 2024 04:09 PM Reporting Lab: [address] [address] Performing Lab: [address] [address] CHOLESTEROL 130 mg/dL TRIGLYCERIDE 92 mg/dL 0-150 LDL calculated 67 mg/dL 0-129 CHOL/HDL 2.9 HDL CHOLESTEROL 45 mg/dL 40-60 Apr 09, 2024 10:53 AM [facility] URINALYSIS CLEAN CATCH Specimen Type: URINE Comment: If Glucose = >500 and Ketones are positive, please alert the Physician. Ordering Provider: TERRY YEPEZ Report Released Date/Time: Apr 05, 2024 04:09 PM Reporting Lab: [address] [address] Performing Lab: [address] [address] UA COLOR Colorless Yellow UA APPEARANCE Clear Clear UA GLUCOSE Normal mg/dL Negative UA KETONES NEGATIVE mg/dL Negative UA BLOOD NEGATIVE mg/dL Negative UA PROTEIN NEGATIVE mg/dL Negative UA NITRITE NEGATIVE mg/dL Negative UA BILIRUBIN NEGATIVE mg/dL Negative UA SPECIFIC GRAVITY 1.009 L 1.016-1.022 UA pH 6.5 5.0-9.0 UA UROBILINOGEN Normal mg/dL <2.0 UA LEUKOCYTE TRACE Negative Apr 09, 2024 10:53 AM [facility] BASIC METABOLIC PANEL (fasting) Specimen Type: SERUM No comment entered. Ordering Provider: TERRY YEPEZ Report Released Date/Time: Apr 05, 2024 04:09 PM Reporting Lab: [address] [address] Performing Lab: [address] [address] UREA NITROGEN 22 mg/dL 7-25 GLUCOSE 104 mg/dL H 65-100 SODIUM 138 mmol/L 135-145 POTASSIUM 4.5 mmol/L 3.5-5.0 CHLORIDE 104 mmol/L 100-110 CO2 28 meq/L 20-30 CREATININE, Serum 0.90 mg/dL 0.50-1.40 eGFR(CKD-EPI 2020) 84 mL/min >60 Apr 09, 2024 10:53 AM [facility] LIVER FUNCTION Specimen Type: SERUM No comment entered. Ordering Provider: TERRY YEPEZ Report Released Date/Time: Apr 05, 2024 04:09 PM Reporting Lab: [address] [address] Performing Lab: [address] [address] PROTEIN,TOTAL 7.4 g/dL 6.0-8.3 ALBUMIN 4.3 g/dL 3.5-5.0 ALKALINE PHOSPHATASE 58 U/L 40-150 AST 21 U/L 5-34 ALT 25 U/L BILIRUBIN, TOTAL 0.9 mg/dL 0.2-1.2 Apr 09, 2024 10:53 AM [facility] MICROSCOPIC AUTOMATED, URINE Specimen Type: URINE Comment: If Glucose = >500 and Ketones are positive, please alert the Physician. Ordering Provider: TERRY YEPEZ Report Released Date/Time: Apr 05, 2024 04:09 PM Reporting Lab: [facility] [address] [address] Performing Lab: [facility] [address] [address] UA WBC 0-5 /[HPF] 0-5 UA RBC 0-2 /[HPF] 0-3 Apr 09, 2024 10:53 AM [facility] CBC AND DIFF (AUTO) Specimen Type: BLOOD No comment entered. Ordering Provider: TERRY YEPEZ Report Released Date/Time: Apr 05, 2024 04:09 PM Reporting Lab: [facility] [address] [address] Performing Lab: [facility] [address] [address] WBC 5.27 10*3/uL 4.50-11.00 RBC 4.15 10*6/uL L 4.23-5.66 HGB 13.2 g/dL 12.8-17 HCT 38.2 L 39.2-50.4 MCV 92.0 fL 82-99 MCHC 34.6 g/dL 30.8-35.1 PLT 138 10*3/uL L 140-360 RDW-CV 13.0 12.0-16.0 MONO, ABS 0.49 10*3/uL 0.30-1.10 MCH 31.8 pg 26.2-32.6 NEUT % 56.7 43.7-75.8 LYMPH % 28.1 14.0-42.3 MONO % 9.3 5.1-13.7 EOS % 3.8 0.4-6.8 BASO % 0.8 0.1-2.0 NEUT, ABS 2.99 10*3/uL 2.20-7.60 LYMPH, ABS 1.48 10*3/uL 1.00-3.20 EOS, ABS 0.20 10*3/uL 0.03-0.44 BASO, ABS 0.04 10*3/uL 0.01-0.13 IMMATURE GRAN % 1.3 H 0.0-0.7 IMMATURE GRAN, ABS 0.07 10*3/uL H 0.00-0.06 NRBC % 0.0 0.0-0.0 NRBC, ABS 0.00 10*3/uL 0.00-0.00 Vital Signs: All taken on the encounter date This section contains inpatient and outpatient Vital Signs collected on the date of the Encounter. Date/Time Temperature Pulse Blood Pressure Respiratory Rate SP02 Pain Height Weight Body Mass Index Source Apr 18, 2024 08:52 AM 134/82 [facility] [place] [facility] Apr 18, 2024 08:27 AM 98.1 67 145/81 16 96 0 72 229.7 31 [facility] [place] [facility] Immunizations: All administered on the encounter date This section contains immunizations associated to the Encounter. Immunization Series Date Issued Reaction Comments COVID-19 (MODERNA), MRNA, LN P-S, PF, 50 MCG/0.5 ML (AGES 12+ YEARS) Apr 18, 2024 INFLUENZA, HIGH-DOSE, TRIVALENT, PF Apr 18 Social History: Smoking Status (Most current) and Tobacco Use (All prior to encounter date) This section includes the most current, and the historical, smoking and tobacco- related health factors from the [place] facility where the Encounter took place. Current Smoking Status This section includes the most current smoking, or tobacco-related health factor, from the [place] facility where the Encounter took place. Date/Time Current Smoking Status Comment Fadi valles Apr 18, 2024 08:30 AM VA-TOBACCO NEVER USED [facility] [place] [facility] Tobacco Use History This section includes a history of the smoking, or tobacco-related health factors, that were collected on or before the date of the Encounter. The data comes from the [place] facility where the Encounter took place. Date/Time Smoking Status/Tobacco Use Comment F acility Apr 16, 2023 09:30 AM VA-TOBACCO NEVER USED [facility] [place] [facility] May 09, 2022 09:00 AM VA-TOBACCO NEVER USED [facility] [place] [facility] May 10, 2021 08:00 AM VA-TOBACCO NEVER USED [facility] [place] [facility] May 17, 2020 03:00 PM VA-TOBACCO NEVER USED [facility] [place] [facility] Apr 15, 2018 09:31 AM VA-TOBACCO NEVER USED [facility] [place] [facility] Apr 17, 2017 08:56 AM LIFETIME NON-TOBACCO USER [facility] Apr 13, 2016 08:54 AM LIFETIME NON-TOBACCO USER [facility] Apr 20, 2010 08:59 AM FORMER SMOKER - <1 00 LIFETIME CIGARETTES [facility] Aug 12, 2004 09:12 AM HISTORY OF SMOKING [facility] May 29, 2003 01:11 PM HISTORY OF SMOKING [facility] May 29, 2003 01:11 PM QUIT TOBACCO USE > 7 YEARS AGO [facility] Encounter Notes: All associated encounter notes This section contains the clinical notes associated to the Encounter. Date/Time Encounter Note(s) Provider Source Apr 18, 2024 09:04 AM PREVENTIVE MEDICINE NURSING NOTE: LOCAL TITLE: CLINICAL REMINDERS/NURSING STANDARD TITLE: PREVENTIVE MEDICINE NURSING NOTE DATE OF NOTE: APR 18, 2024@09:04 ENTRY DATE: APR 18, 2024@09:04:12 AUTHOR: ROSA MASON EXP COSIGNER: URGENCY: STATUS: COMPLETED Influenza Immunization: Influenza, High-Dose, Trivalent, Preservative Free (Fluzone-Syringe) Administered: INFLUENZA, HIGH-DOSE, TRIVALENT, PF Date Administered: Apr 18, 2024 08:30 Series: Complete Marketing Strategist: SANOFI PASTEUR Lot: [id number] Exp Date: Dec 15, 2024 ND: [id number] Admin Route/Site: INTRAMUSCULAR/RIGHT DELTOID Dosage: 0.5mL Vaccine Information Statement(s): INFLUENZA(FLU) VACC(INACTIVATED OR RECOMBINANT)VIS Jan 21, 2021 (FAROESE) Order By: Policy Administered By: Rosa Msaon The Influenza Vaccine Information Statement (VIS) was reviewed with the patient/caregiver which lists the benefits and risks of the vaccine and the risks of not receiving the Influenza vaccine. The patient/caregiver denied any prior severe reaction to this vaccine or its components or a severe allergic reaction, such as anaphylaxis, to any vaccine or any injectable therapy. The patient/caregiver gave verbal consent to receive the vaccine. COVID-19 Immunization: Moderna Monovalent (Spikevax) Administered: COVID-19 (MODERNA), MRNA, LNP-S, PF, 50 MCG/0.5 ML (AGES 12+ YEARS) Date Administered: Apr 18, 2024 08:30 Series: Booster Marketing Strategist: [employer]. Lot: [id number] Exp Date: Nov 22, 2024 [facility] NAMED [facility]: [phone] Admin Route/Site: INTRAMUSCULAR/LEFT DELTOID Dosage: 0.5mL Vaccine Information Statement(s): COVID-19 MRNA VACCINE (12+ YRS) VACCINE VIS Apr 03, 2024 (FAROESE) Order By: Policy Administered By: Rosa Mason Vaccine administered without complications. /tha/ Rosa Mason RN, BSN Primary Care Signed: 04/18/2024 09:06 ROSA MASON [place] [facility] Apr 18, 2024 08:30 AM PREVENTIVE MEDICINE NURSING NOTE: LOCAL TITLE: CLINICAL REMINDERS/NURSING STANDARD TITLE: PREVENTIVE MEDICINE NURSING NOTE DATE OF NOTE: APR 18, 2024@08:30 ENTRY DATE: APR 18, 2024@08:30:37 AUTHOR: SEB GARCIA EXP COSIGNER: URGENCY: STATUS: COMPLETED Falls & Incontinence Screen: Falls Screen: During the past 12 months, did the patient report any falls? 4. No falls within the past year. Incontinence Screen: During the past 12 months, has the patient has any characteristics of incontinence (ability, voiding, leakage, etc.)? No incontinence. Depression Screening: Perform PHQ-2 A PHQ-2 screen was performed. The score was 0 which is a negative screen for depression. Over the past two weeks, how often have you been bothered by the following problems? 1. Little interest or pleasure in doing things Not at all 2. Feeling down, depressed, or hopeless Not at all Suicide Screen: C-SSRS Screening [place] Suicide Severity Rating Scale (C-SSRS) screener 1. Over the past month, have you wished you were or wished you could go to sleep and not wake up? No 2. Over the past month, have you had any actual thoughts of killing yourself? No 3. Over the past month, have you been thinking about how you might do this? Response not required due to responses to other questions. 4. Over the past month, have you had these thoughts and had some intention of acting on them? Response not required due to responses to other questions. 5. Over the past month, have you started to work out or worked out the details of how to kill yourself? Response not required due to responses to other questions. 6. If yes, at any time in the past month did you intend to carry out this plan? Response not required due to responses to other questions. 7. In your lifetime, have you ever done anything, started to do anything, or prepared to do anything to end your life (for example, collected pills, obtained a gun, gave away valuables, went to the roof but didn't jump)? No 8. If YES, was this within the past 3 months? Response not required due to responses to other questions. Homelessness/Food Insecurity Screen: In the past 2 months, have you been living in stable housing that you own, rent, or stay in as part of a household? Yes - Living in stable housing. Are you worried or concerned that in the next 2 months you may NOT have stable housing that you own, rent, or stay in as part of a household? No - Not worried about housing near future The reports the following: Within the past 12 months, you worried whether your food would run out before you got money to buy more. Never true Within the past 12 months, the food you bought just didn't last and you didn't have money to get more. Never true Advance Directive Screen MH AD: Patient has an up-to-date Advance Directive at an outside, non-va facility and was asked to forward a copy to his/her clinician. Comment: will get a copy to this [place] Tobacco Use Screening: The patient has never used tobacco. Alcohol Use Screen (AUDIT-C): Alcohol Screen: SCREEN FOR ALCOHOL (AUDIT-C) An alcohol screening test (AUDIT-C) was negative (score=1). 1. How often did you have a drink containing alcohol in the past year? Consider a drink to be a 12 ounce can or bottle of regular beer, 8 ounces of malt liquor, a 5 ounce glass of table wine, or a 1.5 ounce shot of liquor (like scotch, gin, or vodka). Monthly or less 2. How many drinks containing alcohol did you have on a typical day when you were drinking in the past year? One or two drinks 3. How often did you have six or more drinks on one occasion in the past year? Never Sexual Orientation: The patient thinks of their sexual orientation as: Straight or Heterosexual (Optional) Whole Health Documentation: What matters the most to you? What motivates you to be healthy? (MAP) Response: continue living /es/ SEB GARCIA LPN LPN Signed: 04/18/2024 08:34 [facility]
--- OUTSIDE RECORDS SUMMARY | 2024-05-28 18:52 | XMS_ITS ---
Author Name [facility] [place] [facility] [place] Organization [facility] [place] Address [address] [place] [id number] Care Team Providers Care Mud Mixer Helper Name Role Phone TERRY YEPEZ Primary Care [...] Relationship to Policy Celeste RUSS [place] MEDIGAP PLAN C PSUED O MEDEX BRONZ E October 17, 2003 [id number] DAKOTA DUDLEY CHARRonald PATIENT [place] MED[place] SUPPLEMEN RYAN MEDEX BRONZ E October 17, 2003 [id number] DAKOTA DUDLEY CHARD PATIENT [place] SU[place] MEDEX BRON[place] E October 17, 2003 [id number] DAKOTA DUDLEY CHARRonald PATIENT BCBS [facility] MEDICARE SUPPLEMEN RYAN PSUED O MEDEX BRONZ E October 17, 2003 [id number] DAKOTA DUDLEY CHARRonald PATIENT MEDICARE (WNR) MEDICARE (M) PART A October 17, 2003 PART A [id number] DAKOTA DUDLEY PATIENT MEDICARE (WNR) MEDICARE (M) PART B October 17, 2003 PART B [id number] DAKOTA DUDLEY PATIENT MEDICARE (WNR) MEDICARE (M) PART A October 17, 2003 PART A [id number] [phone] DAKOTA DUDLEY PATIENT MEDICARE (WNR) MEDICARE (M) PART B October 17, 2003 PART B [id number] [phone] DAKOTA DUDLEY PATIENT MEDICARE (WNR) MEDICARE (M) PART A October 17, 2003 PART A [id number] [phone] DAKOTA DUDLEY PATIENT MEDICARE (WNR) MEDICARE (M) PART B October 17, 2003 PART B [id number] DAKOTA DUDLEY PATIENT Selected Encounter This section includes the information on record at [place] for the Encounter. Date/Time Encounter Type Encounter Description Reason Pro vider Source May 05, 2024 11:20 AM Outpatient Encounter GENERAL INTERNAL MEDICINE IHE Encounter Template Text not used by [place] Plan of Treatment: Future Appointments (+ 6 months) and Future Tests (+/- 45 days) The Plan of Treatment section includes future care activities for the patient from all [place] treatmentfacilities. This section includes future appointments and future orders which are active, pending or scheduled. Future Appointments This section includes appointments that were scheduled to occur 6 months from the date of the Encounter, up to a maximum of 20 appointments. The data comes from all [place] treatment facilities. Appointment Date/Time Appointment Type Appointme nt Facility Name Jul 14, 2024 01:00 PM AMBULATORY - SURGERY [facility] Lab Results: +/- 30 days of the encounter This section includes the Chemistry and Hematology Lab Results on record with [place] for the patient. Radiology Reports and Pathology Reports are provided separately, in subsequent sections. Lab Results This section contains the Chemistry/Hematology Results that were resulted 30 days before or 30 daysafter the date of the Encounter. Date/Time Source Result Type Result - Unit Interpretation Reference Range Comment Apr 09, 2024 10:53 AM [place] [facility] [place] [facility] TSH Specimen Type: SERUM No comment entered. Ordering Provider: TERRY YEPEZ Report Released Date/Time: Apr 05, 2024 04:09 PM Reporting Lab: [facility] [address] [facility] [address] Performing Lab: [address] [address] TSH 5.83 u[IU]/mL H 0.35-5.00 Apr 09, 2024 10:53 AM [facility] LIPID PANEL FASTING Specimen Type: SERUM No comment entered. Ordering Provider: TERRY YEPEZ Report Released Date/Time: Apr 05, 2024 04:09 PM Reporting Lab: [address] [address] Performing Lab: [address] [address] CHOLESTEROL 130 mg/dL TRIGLYCERIDE 92 mg/dL 0-150 LDL calculated 67 mg/dL 0-129 CHOL/HDL 2.9 HDL CHOLESTEROL 45 mg/dL 40-60 Apr 09, 2024 10:53 AM [facility] URINALYSIS CLEAN CATCH Specimen Type: URINE Comment: If Glucose = >500 and Ketones are positive, please alert the Physician. Ordering Provider: TERRY YEPEZ Report Released Date/Time: Apr 05, 2024 04:09 PM Reporting Lab: [address] [address] Performing Lab: [address] [address] UA COLOR Colorless Yellow UA APPEARANCE Clear Clear UA GLUCOSE Normal mg/dL Negative UA KETONES NEGATIVE mg/dL Negative UA BLOOD NEGATIVE mg/dL Negative UA PROTEIN NEGATIVE mg/dL Negative UA NITRITE NEGATIVE mg/dL Negative UA BILIRUBIN NEGATIVE mg/dL Negative UA SPECIFIC GRAVITY 1.009 L 1.016-1.022 UA pH 6.5 5.0-9.0 UA UROBILINOGEN Normal mg/dL <2.0 UA LEUKOCYTE TRACE Negative Apr 09, 2024 10:53 AM [facility] BASIC METABOLIC PANEL (fasting) Specimen Type: SERUM No comment entered. Ordering Provider: TERRY YEPEZ Report Released Date/Time: Apr 05, 2024 04:09 PM Reporting Lab: [facility] [address] [facility] [address] Performing Lab: [facility] [address] [facility] [address] UREA NITROGEN 22 mg/dL 7-25 GLUCOSE 104 mg/dL H 65-100 SODIUM 138 mmol/L 135-145 POTASSIUM 4.5 mmol/L 3.5-5.0 CHLORIDE 104 mmol/L 100-110 CO2 28 meq/L 20-30 CREATININE, Serum 0.90 mg/dL 0.50-1.40 eGFR(CKD-EPI 2020) 84 mL/min >60 Apr 09, 2024 10:53 AM [facility] MICROSCOPIC AUTOMATED, URINE Specimen Type: URINE Comment: If Glucose = >500 and Ketones are positive, please alert the Physician. Ordering Provider: TERRY YEPEZ Report Released Date/Time: Apr 05, 2024 04:09 PM Reporting Lab: [facility] [address] [facility] [address] Performing Lab: [facility] [address] [facility] [address] UA WBC 0-5 /[HPF] 0-5 UA RBC 0-2 /[HPF] 0-3 Apr 09, 2024 10:53 AM [facility] LIVER FUNCTION Specimen Type: SERUM No comment entered. Ordering Provider: TERRY YEPEZ Report Released Date/Time: Apr 05, 2024 04:09 PM Reporting Lab: [facility] [address] [facility] [address] Performing Lab: [address] [address] PROTEIN,TOTAL 7.4 g/dL 6.0-8.3 ALBUMIN 4.3 g/dL 3.5-5.0 ALKALINE PHOSPHATASE 58 U/L 40-150 AST 21 U/L 5-34 ALT 25 U/L BILIRUBIN, TOTAL 0.9 mg/dL 0.2-1.2 Apr 09, 2024 10:53 AM [facility] CBC AND DIFF (AUTO) Specimen Type: BLOOD No comment entered. Ordering Provider: TERRY YEPEZ Report Released Date/Time: Apr 05, 2024 04:09 PM Reporting Lab: [facility] [address] [facility] [address] Performing Lab: [facility] [address] [facility] [address] WBC 5.27 10*3/uL 4.50-11.00 RBC 4.15 10*6/uL [...] 0.0 0.0-0.0 NRBC, ABS 0.00 10*3/uL 0.00-0.00 Social History: Smoking Status (Most current) and Tobacco Use (All prior to encounter date) This section includes the most current, and the historical, smoking and tobacco- related health factors from the [place] facility where the Encounter took place. Current Smoking Status This section includes the most current smoking, or tobacco-related health factor, from the [place] facility where the Encounter took place. Date/Time Current Smoking Status Comment Facil ity Apr 18, 2024 08:30 AM [facility]CO [facility] Tobacco Use History This section includes a history of the smoking, or tobacco-related health factors, that were collected on or before the date of the Encounter. The data comes from the [place] facility where the Encounter took place. Date/Time Smoking Status/Tobacco Use Comment Gaston loza Apr 16, 2023 09:30 AM VA-TOBACCO NEVER USED [facility] [place] [facility] May 09, 2022 09:00 AM VA-TOBACCO NEVER USED [facility] [place] [facility] May 10, 2021 08:00 AM VA-TOBACCO NEVER USED [place] [facility] [place] [facility] May 17, 2020 03:00 PM VA-TOBACCO NEVER USED [place] [facility] [place] [facility] Apr 15, 2018 09:31 AM VA-TOBACCO NEVER USED [place] [facility] [place] [facility] Apr 17, 2017 08:56 AM LIFETIME NON-TOBACCO USER [place] [facility] [place] [facility] Apr 13, 2016 08:54 AM LIFETIME NON-TOBACCO USER [place] [facility] [place] [facility] Apr 20, 2010 08:59 AM FORMER SMOKER - <1 00 LIFETIME CIGARETTES [place] [facility] [place] [facility] Aug 12, 2004 09:12 AM HISTORY OF SMOKING [place] [facility] [place] [facility] May 29, 2003 01:11 PM HISTORY OF SMOKING [place] [facility] [place] [facility] May 29, 2003 01:11 PM QUIT TOBACCO USE > 7 YEARS AGO [facility] [place] [facility] Encounter Notes: All associated encounter notes This section contains the clinical notes associated to the Encounter. Date/Time Encounter Note(s) Provider Source May 05, 2024 11:20 AM ADMINISTRATIVE NOT E: LOCAL TITLE: FAX/MAIL RECEIVED STANDARD TITLE: ADMINISTRATIVE NOTE DATE OF NOTE: MAY 05, 2024@11:20 ENTRY DATE: MAY 05, 2024@11:20:42 AUTHOR: MARIA GUADALUPE GILBERT COSIGNER: URGENCY: STATUS: COMPLETED Document Received On: Apr Document Type: Other: EMG Data Date of Service: Apr Facility and or Provider: Dr. Carl Beckford, Physiatry Contact Information: Rajni Hutton RN x [phone] Maria Guadalupe Gilbert LPN x [phone] JOHN Palomino PCP of Record: TERRY YEPEZ Next visit with PCP: 03/16/2025 08:30 CWM/NO/PACT 2 Sent to HIMS/Scanning this date. /tha/ Maria Guadalupe Gilbert LPN LPN Signed: 05/05/2024 11:23 MARIA GUADALUPE GILBERT [facility]
--- OUTSIDE RECORDS SUMMARY | 2024-05-28 18:52 | XMS_ITS | Encounter Summary ---
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 Name Role Phone TERRY YEPEZ Primary Care [...] Name Patient's Relationship to Policy Celeste RUSS [place] PSUED O MEDEX BRONZ E October 17, 2003 [id number] DAKOTA DUDLEY CHARRonald PATIENT [place] MED[place] SUPPLEMEN RYAN MEDEX BRONZ E October 17, 2003 [id number] DAKOTA DUDLEY CHARD [place] MEDEX BRONZ E October 17, 2003 [id number] DAKOTA DUDLEY CHARRonald PATIENT BCBS [facility] MEDICARE SUPPLEMEN RYAN PSUED O MEDEX BRONZ E October 17, 2003 [id number] DAKOTA DUDLEY CHARRonald PATIENT MEDICARE (WNR) MEDICARE (M) PART A October 17, 2003 PART A [id number] DAKOTA DUDLEY PATIENT MEDICARE (WNR) MEDICARE (M) PART B October 17, 2003 PART B [id number] DAKOTA DUDLEY PATIENT MEDICARE (WNR) MEDICARE (M) PART A October 17, 2003 PART A [id number] DAKOTA DUDLEY PATIENT MEDICARE (WNR) MEDICARE (M) PART B October 17, 2003 PART B [id number] DAKOTA DUDLEY PATIENT MEDICARE (WNR) MEDICARE (M) PART A October 17, 2003 PART A [id number] DAKOTA DUDLEY PATIENT MEDICARE (WNR) MEDICARE (M) PART B October 17, 2003 PART B [id number] DAKOTA DUDLEY PATIENT Selected Encounter This section includes the information on record at [place] for the Encounter. Date/Time Encounter Type Encounter Description Reason Pro vider Source Apr 21, 2024 01:52 PM Outpatient Encounter EVENT (HISTORICAL) IHE Encounter Template Text not used by [place] Plan of Treatment: Future Appointments (+ 6 months) and Future Tests (+/- 45 days) The Plan of Treatment section includes future care activities for the patient from all [place] treatmentfacilities. This section includes future appointments and future orders which are active, pending or scheduled. Future Appointments This section includes appointments that were scheduled to occur 6 months from the date of the Encounter, up to a maximum of 20 appointments. The data comes from all [place] treatment facilities. Appointment Date/Time Appointment Type Appointme nt Facility Name Jul 14, 2024 01:00 PM AMBULATORY - SURGERY [facility] Lab Results: +/- 30 days of the encounter This section includes the Chemistry and Hematology Lab Results on record with [place] for the patient. Radiology Reports and Pathology Reports are provided separately, in subsequent sections. Lab Results This section contains the Chemistry/Hematology Results that were resulted 30 days before or 30 daysafter the date of the Encounter. Date/Time Source Result Type Result - Unit Interpretation Reference Range Comment Apr 09, 2024 10:53 AM [place] [facility] [place] [facility] TSH Specimen Type: SERUM No comment entered. Ordering Provider: TERRY YEPEZ Report Released Date/Time: Apr 05, 2024 04:09 PM Reporting Lab: [address] [address] Performing Lab: [address] [address] TSH 5.83 u[IU]/mL H 0.35-5.00 Apr 09, 2024 10:53 AM [facility] LIPID PANEL FASTING Specimen Type: SERUM No comment entered. Ordering Provider: TERRY YEPEZ Report Released Date/Time: Apr 05, 2024 04:09 PM Reporting Lab: [address] [address] Performing Lab: [address] [address] CHOLESTEROL 130 mg/dL TRIGLYCERIDE 92 mg/dL 0-150 LDL calculated 67 mg/dL 0-129 CHOL/HDL 2.9 HDL CHOLESTEROL 45 mg/dL 40-60 Apr 09, 2024 10:53 AM [facility] URINALYSIS CLEAN CATCH Specimen Type: URINE Comment: If Glucose = >500 and Ketones are positive, please alert the Physician. Ordering Provider: TERRY YEPEZ Report Released Date/Time: Apr 05, 2024 04:09 PM Reporting Lab: [address] [address] Performing Lab: [address] [address] UA COLOR Colorless Yellow UA APPEARANCE Clear Clear UA GLUCOSE Normal mg/dL Negative UA KETONES NEGATIVE mg/dL Negative UA BLOOD NEGATIVE mg/dL Negative UA PROTEIN NEGATIVE mg/dL Negative UA NITRITE NEGATIVE mg/dL Negative UA BILIRUBIN NEGATIVE mg/dL Negative UA SPECIFIC GRAVITY 1.009 L 1.016-1.022 UA pH 6.5 5.0-9.0 UA UROBILINOGEN Normal mg/dL <2.0 UA LEUKOCYTE TRACE Negative Apr 09, 2024 10:53 AM [facility] BASIC METABOLIC PANEL (fasting) Specimen Type: SERUM No comment entered. Ordering Provider: TERRY YEPEZ Report Released Date/Time: Apr 05, 2024 04:09 PM Reporting Lab: [facility] [address] [facility] [address] Performing Lab: [facility] [address] [facility] [address] UREA NITROGEN 22 mg/dL 7-25 GLUCOSE 104 mg/dL H 65-100 SODIUM 138 mmol/L 135-145 POTASSIUM 4.5 mmol/L 3.5-5.0 CHLORIDE 104 mmol/L 100-110 CO2 28 meq/L 20-30 CREATININE, Serum 0.90 mg/dL 0.50-1.40 eGFR(CKD-EPI 2020) 84 mL/min >60 Apr 09, 2024 10:53 AM [facility] LIVER FUNCTION Specimen Type: SERUM No comment entered. Ordering Provider: TERRY YEPEZ Report Released Date/Time: Apr 05, 2024 04:09 PM Reporting Lab: [facility] [address] [facility] [address] Performing Lab: [address] [address] PROTEIN,TOTAL 7.4 g/dL 6.0-8.3 ALBUMIN 4.3 g/dL 3.5-5.0 ALKALINE PHOSPHATASE 58 U/L 40-150 AST 21 U/L 5-34 ALT 25 U/L BILIRUBIN, TOTAL 0.9 mg/dL 0.2-1.2 Apr 09, 2024 10:53 AM [facility] MICROSCOPIC AUTOMATED, URINE Specimen Type: URINE Comment: If Glucose = >500 and Ketones are positive, please alert the Physician. Ordering Provider: TERRY YEPEZ Report Released Date/Time: Apr 05, 2024 04:09 PM Reporting Lab: [facility] [address] [facility] [address] Performing Lab: [address] [address] UA WBC 0-5 /[HPF] 0-5 UA RBC 0-2 /[HPF] 0-3 Apr 09, 2024 10:53 AM [facility] CBC AND DIFF (AUTO) Specimen Type: BLOOD No comment entered. Ordering Provider: TERRY YEPEZ Report Released Date/Time: Apr 05, 2024 04:09 PM Reporting Lab: [facility] [address] [facility] [address] Performing Lab: [facility] [address] [facility] [address] WBC 5.27 10*3/uL 4.50-11.00 RBC 4.15 10*6/uL [...] Height Weight Body Mass Index Source Apr 21, 2024 01:29 PM 70 140/80 20 98 0 [facility] Social History: Smoking Status (Most current) and Tobacco Use (All prior to encounter date) This section includes the most current, and the historical, smoking and tobacco- related health factors from the [place] facility where the Encounter took place. Current Smoking Status This section includes the most current smoking, or tobacco-related health factor, from the [place] facility where the Encounter took place. Date/Time Current Smoking Status Comment Fadi ity Apr 18, 2024 08:30 AM VA-TOBACCO NEVER USED [place] [facility] [place] [facility] Tobacco Use History This section includes a history of the smoking, or tobacco-related health factors, that were collected on or before the date of the Encounter. The data comes from the [place] facility where the Encounter took place. Date/Time Smoking Status/Tobacco Use Comment F acility Apr 16, 2023 09:30 AM VA-TOBACCO NEVER USED [facility] [place] [facility] May 09, 2022 09:00 AM VA-TOBACCO NEVER USED [facility] [place] [facility] May 10, 2021 08:00 AM VA-TOBACCO NEVER USED [facility] [place] [facility] May 17, 2020 03:00 PM VA-TOBACCO NEVER USED [facility] [place] [facility] Apr 15, 2018 09:31 AM VA-TOBACCO NEVER USED [facility] [place] [facility] Apr 17, 2017 08:56 AM LIFETIME NON-TOBACCO USER [facility] [place] [facility] Apr 13, 2016 08:54 AM LIFETIME NON-TOBACCO USER [facility] [place] [facility] Apr 20, 2010 08:59 AM FORMER SMOKER - <1 00 LIFETIME CIGARETTES [facility] [place] [facility] Aug 12, 2004 09:12 AM HISTORY OF SMOKING [facility] [place] [facility] May 29, 2003 01:11 PM HISTORY OF SMOKING [facility] [place] [facility] May 29, 2003 01:11 PM QUIT TOBACCO USE > 7 YEARS AGO [place] [facility] [place] [facility]
--- OUTSIDE RECORDS SUMMARY | 2024-05-28 18:52 | XMS_ITS ---
Author Name [facility] [place] [facility] [place] Address [address] [place] [address] Care Team Providers Care Manager Mobile Name Role Phone TERRY CLAIRE Primary Care Provider Unavailabl e Insurance Providers: [...] Relationship to Policy Celeste RUSS [place] MED[place] C PSUED O MEDEX BRONZ E October 17, 2003 [id number] OCTAVIA,DAKOTA CHARD PATIENT BCBS [place] MEDICARE SUPPLEMEN RYAN MEDEX BRONZ E October 17, 2003 [id number] OCTAVIA,DAKOTA CHARD PATIENT BCBS [place] MED[place] SUPPLEMEN RYAN MEDEX BRONZ E October 17, 2003 [id number] DAKOTA DUDLEY CHARD PATIENT BCBS OF [facility] MEDICARE SUPPLEMEN RYAN PSUED O MEDEX BRONZ E October 17, 2003 [id number] OCTAVIA,RI CHARD PATIENT MEDICARE (WNR) MEDICARE (M) PART A October 17, 2003 PART A [id number] DAKOTA DUDLEY PATIENT MEDICARE (WNR) MEDICARE (M) PART B October 17, 2003 PART B [id number] DAKOTA DUDLEY PATIENT MEDICARE (WNR) MEDICARE (M) PART A October 17, 2003 PART A [id number] DAKOTA DUDLEY PATIENT MEDICARE (WNR) MEDICARE (M) PART B October 17, 2003 PART B [id number] DAKOTA DUDLEY PATIENT MEDICARE (WNR) MEDICARE (M) PART A October 17, 2003 PART A [id number] DAKOTA DUDLEY PATIENT MEDICARE (WNR) MEDICARE (M) PART B October 17, 2003 PART B [id number] DAKOTA DUDLEY PATIENT Selected Encounter This section includes the information on record at [place] for the Encounter. Date/Time Encounter Type Encounter Description Reason Provider Source Apr 18, 2024 08:30 AM OFFICE O/P EST LOW 20 MIN PRIMARY CARE/MEDICINE ICD-10-CM I10 Essential (primary) hypertension TERRY CLAIRE [facility] Encounter Template Text not used by [place] Assessments - Encounter Diagnoses This section includes the primary and secondary diagnoses documented for the Encounter. Date/Time Primary/Secondary Diagnosis Diagnosis Name Provider Source Apr 18, 2024 08:30 AM PRIMARY Essential (primary) hypertension TERRY CLAIRE [facility] Apr 18, 2024 08:30 AM SECONDARY Disorder of thyroid, unspecified TERRY CLAIRE [facility] Plan of Treatment: Future Appointments (+ 6 months) and Future Tests (+/- 45 days) The Plan of Treatment section includes future care activities for the patient from all [place] treatmentfacilities. This section includes future appointments and future orders which are active, pending or scheduled. Future Appointments This section includes appointments that were scheduled to occur 6 months from the date of the Encounter, up to a maximum of 20 appointments. The data comes from all [place] treatment facilities. Appointment Date/Time Appointment Type Appointme nt Facility Name Apr 21, 2024 01:30 PM [facility] [place] [facility] Jul 14, 2024 01:00 PM AMBULATORY - SURGERY [facility] Lab Results: +/- 30 days of the encounter This section includes the Chemistry and Hematology Lab Results on record with [facility] for the patient. Radiology Reports and Pathology Reports are provided separately, in subsequent sections. Lab Results This section contains the Chemistry/Hematology Results that were resulted 30 days before or 30 daysafter the date of the Encounter. Date/Time Source Result Type Result - Unit Interpretation Reference Range Comment Apr 09, 2024 10:53 AM [facility] TSH Specimen Type: SERUM No comment entered. Ordering Provider: TERRY CLAIRE Report Released Date/Time: Apr 05, 2024 04:09 PM Reporting Lab[facility] [address] [address] Performing Lab: [facility] [address] TSH 5.83 u[IU]/mL H 0.35-5.00 Apr 09, 2024 10:53 AM [facility] LIPID PANEL FASTING Specimen Type: SERUM No comment entered. Ordering Provider: TERRY CLAIRE Report Released Date/Time: Apr 05, 2024 04:09 PM Reporting Lab: [facility] [address] [address] Performing Lab: [facility] [address] [address] CHOLESTEROL 130 mg/dL TRIGLYCERIDE 92 mg/dL 0-150 LDL calculated 67 mg/dL 0-129 CHOL/HDL 2.9 HDL CHOLESTEROL 45 mg/dL 40-60 Apr 09, 2024 10:53 AM [facility] URINALYSIS CLEAN CATCH Specimen Type: URINE Comment: If Glucose = >500 and Ketones are positive, please alert the Physician. Ordering Provider: TERRY CLAIRE Report Released Date/Time: Apr 05, 2024 04:09 PM Reporting Lab: [facility] [address] Performing Lab: [facility] [address] UA COLOR Colorless Yellow UA APPEARANCE Clear Clear UA GLUCOSE Normal mg/dL Negative UA KETONES NEGATIVE mg/dL Negative UA BLOOD NEGATIVE mg/dL Negative UA PROTEIN NEGATIVE mg/dL Negative UA NITRITE NEGATIVE mg/dL Negative UA BILIRUBIN NEGATIVE mg/dL Negative UA SPECIFIC GRAVITY 1.009 L 1.016-1.022 UA pH 6.5 5.0-9.0 UA UROBILINOGEN Normal mg/dL <2.0 UA LEUKOCYTE TRACE Negative Apr 09, 2024 10:53 AM [facility] BASIC METABOLIC PANEL (fasting) Specimen Type: SERUM No comment entered. Ordering Provider: TERRY CLAIRE Report Released Date/Time: Apr 05, 2024 04:09 PM Reporting Lab: [address] [address] Performing Lab: [address] [address] UREA NITROGEN 22 mg/dL 7-25 GLUCOSE 104 mg/dL H 65-100 SODIUM 138 mmol/L 135-145 POTASSIUM 4.5 mmol/L 3.5-5.0 CHLORIDE 104 mmol/L 100-110 CO2 28 meq/L 20-30 CREATININE, Serum 0.90 mg/dL 0.50-1.40 eGFR(CKD-EPI 2020) 84 mL/min >60 Apr 09, 2024 10:53 AM [facility] MICROSCOPIC AUTOMATED, URINE Specimen Type: URINE Comment: If Glucose = >500 and Ketones are positive, please alert the Physician. Ordering Provider: TERRY CLAIRE Report Released Date/Time: Apr 05, 2024 04:09 PM Reporting Lab: [facility] [address] [address] Performing Lab: [address] [address] UA WBC 0-5 /[HPF] 0-5 UA RBC 0-2 /[HPF] 0-3 Apr 09, 2024 10:53 AM [facility] LIVER FUNCTION Specimen Type: SERUM No comment entered. Ordering Provider: TERRY CLAIRE Report Released Date/Time: Apr 05, 2024 04:09 PM Reporting Lab: [facility] [address] [address] Performing Lab: [facility] [address] [address] PROTEIN,TOTAL 7.4 g/dL 6.0-8.3 ALBUMIN 4.3 g/dL 3.5-5.0 ALKALINE PHOSPHATASE 58 U/L 40-150 AST 21 U/L 5-34 ALT 25 U/L BILIRUBIN, TOTAL 0.9 mg/dL 0.2-1.2 Apr 09, 2024 10:53 AM [facility] CBC AND DIFF (AUTO) Specimen Type: BLOOD No comment entered. Ordering Provider: TERRY CLAIRE Report Released Date/Time: Apr 05, 2024 04:09 PM Reporting Lab: [facility] [address] [address] Performing Lab: [facility] [address] [address] WBC 5.27 10*3/uL 4.50-11.00 RBC 4.15 10*6/uL [...] AM 134/82 [facility] [place] [facility] Apr 18, 2024 08:27 AM 98.1 67 145/81 16 96 0 72 229.7 31 [facility] [place] [facility] Social History: Smoking Status (Most current) and Tobacco Use (All prior to encounter date) This section includes the most current, and the historical, smoking and tobacco- related health factors from the [place] facility where the Encounter took place. Current Smoking Status This section includes the most current smoking, or tobacco-related health factor, from the [place] facility where the Encounter took place. Date/Time Current Smoking Status Comment Fadi ity Apr 18, 2024 08:30 AM VA-TOBACCO NEVER USED [facility] [place] [facility] Tobacco Use History This section includes a history of the smoking, or tobacco-related health factors, that were collected on or before the date of the Encounter. The data comes from the [place] facility where the Encounter took place. Date/Time Smoking Status/Tobacco Use Comment F acility Apr 16, 2023 09:30 AM VA-TOBACCO NEVER USED [facility] [place] [facility] May 09, 2022 09:00 AM VA-TOBACCO NEVER USED [facility] [place] [facility] May 10, 2021 08:00 AM VA-TOBACCO NEVER USED [facility] [place] [facility] May 17, 2020 03:00 PM VA-TOBACCO NEVER USED [facility] [place] [facility] Apr 15, 2018 09:31 AM VA-TOBACCO NEVER USED [facility] [place] [facility] Apr 17, 2017 08:56 AM LIFETIME NON-TOBACCO USER [facility] [place] [facility] Apr 13, 2016 08:54 AM LIFETIME NON-TOBACCO USER [facility] [place] [facility] Apr 20, 2010 08:59 AM FORMER SMOKER - <1 00 LIFETIME CIGARETTES [facility] Aug 12, 2004 09:12 AM HISTORY OF SMOKING [facility] May 29, 2003 01:11 PM HISTORY OF SMOKING [facility] May 29, 2003 01:11 PM QUIT TOBACCO USE > 7 YEARS AGO [facility] Encounter Notes: All associated encounter notes This section contains the clinical notes associated to the Encounter. Date/Time Encounter Note(s) Provider Source Apr 18, 2024 08:56 AM PHYSICIAN NOTE: LOCAL TITLE: MD NOTE STANDARD TITLE: PHYSICIAN NOTE DATE OF NOTE: APR 18, 2024@08:56 ENTRY DATE: APR 18, 2024@08:56:32 AUTHOR: TERRY CLAIRE EXP COSIGNER: URGENCY: STATUS: COMPLETED Patient Name: ILAN DUDLEY VITALS: Patient temperature: 98.1 F [36.7 C] (04/18/2024 08:27) Blood pressure: 134/82 (04/18/2024 08:52) Patient height: 72 in [182.9 cm] (04/18/2024 08:27) Patient weight: 229.7 lb [104.19 kg] (04/18/2024 08:27) Patient BMI: BMI: 31.2 Patient pulse: 67 (04/18/2024 08:27) Patient respiration: 16 (04/18/2024 08:27) Patient Pulse Oximetry: 96% (04/18/2024 08:27) Pain Ratin (04/18/2024 08:27) Active VA Medications: Active Outpatient Medications (including Supplies): Active Non-VA [...] WITH DIRECTIONS PROVIDED FROM THE [facility] Remote Medications: No Active 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 Aguila History of present illness patient takes medications for hypertension. Patient feels well today with no complaints. Works out 3 times per week at the [employer]. Review of systems No chest pain or dyspnea No abdominal pain No trouble urinating No fever or chills No cough Physical examination: Well developed well nourished in no apparent distress Vitals as above Heart: rrr, no m/r/g Lungs: clear to ausculatation Abdomen: soft, +bs, nontender, nondistended, no masses or guarding Extremities: no edema, no cyanosis or clubbing Neurologic: alert, normal gait, normal senory and motor, EOMI, PERRLA, conjunctiva and sclera normal Psychiatric: answers questions appropriately, normal/coherent speech HEENT: mucious membranes moist Ears and pharynx: no erythema, tympanic membranes normal Neck: supple Urogenital: normal external male, no masses Skin: warm, dry, no lesions WBC: 5.27 RBC: 4.15 L HGB: 13.2 HCT: 38.2 L MCV: 92.0 MCHC: 34.6 RDW: 13.0 PLT: 138 L MCH: 31.8 Neut %: 56.7 Lymph %: 28.1 [place]ison %: 9.3 Eos %: 3.8 Baso %: 0.8 Neut, Abs: 2.99 Lymph, Abs: 1.48 [place]ison, Abs: 0.49 Eos, Abs: 0.20 Baso, Abs: 0.04 Immature Granulocytes %: 1.3 H Immature Granulocytes, Abs: 0.07 H NRBC%: 0.0 NRBC#: 0.00 WBC/HPF: 0-5 RBC/HPF: 0-2 Color, Urine (AX 4280): Colorless Appearance, Urine (AX 4280): Clear Glucose, Urine (AX 4280): Normal Ketones, Urine (AX 4280): NEGATIVE Blood, Urine (AX 4280): NEGATIVE Protein, Urine (AX 4280): NEGATIVE Nitrite, Urine (AX 4280): NEGATIVE Bilirubin, Urine (AX 4280): NEGATIVE Specific [place], (AX 4280): 1.009 L pH, Urine (PK5010): 6.5 Urobilinogen, Urine (AX 4280): Normal Leukocyte Esterase, (AX 4280): TRACE TSH (Access): 5.83 H GLUCOSE: 104 H UREA NITROGEN: 22 SODIUM: 138 POTASSIUM: 4.5 CHLORIDE: 104 CO2: 28 CHOLESTEROL: 130 PROTEIN,TOTAL: 7.4 ALBUMIN: 4.3 ALKALINE PHOSPHATASE: 58 SGOT: 21 SGPT: 25 TRIGLYCERIDE: 92 LDL CHOL: 67 CHOL/HDL RATIO: 2.9 HDL: 45 BILIRUBIN,TOT.: 0.9 CREATININE-EGFR: 0.90 eGFR CKD-EPI 2020: 84 I discussed above test results with patient Assessment and plan: 1. Hypertension: Blood pressure satisfactory Plan continue present medications 2. Elevated TSH: New onset. Clinically euthyroid. Plan: Patient made aware of this and given written copy of lab results. Private PCP can follow-up. No immediate need for medication. Follow-up 1 year clinic visit and lab Medication Reconciliation: Outpatient: Has the patient been taking medications as documented in the EMLR? YES: The patient has been taking medications as documented in the EMLR. Essential Medication List for Review used to complete this medication reconciliation. INCLUDED IN THIS LIST: Alphabetical list of active outpatient prescriptions dispensed from this VA (local) and dispensed from another [place] or DoD facility (remote) as well as inpatient orders (local, pending and active), local clinic medications, locally documented non-VA medications, and local prescriptions that have or been discontinued in the past 90 days. - All changes in medications, including all non-VA/Herbal/OTC medications were entered into CPRS. - If there were any medications the patient should no longer take, they were discontinued. - The patient/caregiver was instructed to update this list, discard old lists, and take this list to the next appointment, whether with a VA or non-VA provider. /tha/ Terry Claire MD Staff Physician Signed: 04/18/2024 09:01 TERRY CLAIRE [facility]
--- OUTSIDE RECORDS SUMMARY | 2024-05-28 18:53 | XMS_ITS | Encounter Summary ---
Author Name [facility] [place] Address [address] [place] [address] Care Team Providers Care Licensed Direct Entry Midwife Name Role Phone TERRY YEPEZ Primary Care [...] Relationship to Policy Celeste RUSS [place] MED[place]AP PLAN C PSUED O MEDEX BRONZ E October 17, 2003 [id number] OCTAVIA,DAKOTA CHARD PATIENT [place]BS [place] MED[place]ARE SUPPLEMEN RYAN MEDEX BRONZ E October 17, 2003 [id number] OCTAVIA,DAKOTA CHARD PATIENT [place]BS [place] MED[place] SUPPLEMEN RYAN MEDEX BRONZ E October 17, 2003 [id number] DAKOTA DUDLEY CHARD PATIENT BCBS OF [facility] MEDICARE SUPPLEMEN RYAN PSUED O MEDEX BRONZ E October 17, 2003 [id number] [phone] OCTAVIA,DAKOTA CHARD PATIENT MEDICARE (WNR) MEDICARE (M) PART A October 17, 2003 PART A [id number] DAKOTA DUDLEY PATIENT MEDICARE (WNR) MEDICARE (M) PART B October 17, 2003 PART B [id number] [phone] DAKOTA DUDLEY PATIENT MEDICARE (WNR) MEDICARE (M) PART A October 17, 2003 PART A [id number] [phone] DAKOTA DUDLEY PATIENT MEDICARE (WNR) MEDICARE (M) PART B October 17, 2003 PART B [id number] DAKOTA DUDLEY PATIENT MEDICARE (WNR) MEDICARE (M) PART A October 17, 2003 PART A [id number] DAKOTA DUDLEY PATIENT MEDICARE (WNR) MEDICARE (M) PART B October 17, 2003 PART B [id number] DAKOTA DUDLEY PATIENT Selected Encounter This section includes the information on record at [place] for the Encounter. Date/Time Encounter Type Encounter Description Reason Pro vider Source Dec 11, 2023 11:11 AM Outpatient Encounter ADMIN PAT ACTIVTIES (MASNONCT) IHE Encounter Template Text not used by PA Plan of Treatment: Future Appointments (+ 6 months) and Future Tests (+/- 45 days) The Plan of Treatment section includes future care activities for the patient from all [place] treatmentfacilities. This section includes future appointments and future orders which are active, pending or scheduled. Future Appointments This section includes appointments that were scheduled to occur 6 months from the date of the Encounter, up to a maximum of 20 appointments. The data comes from all [place] treatment facilities. Appointment Date/Time Appointment Type Appointme nt Facility Name Dec 31, 2023 01:00 PM AMBULATORY - MEDICINE [facility] [place] [facility] Jan 17, 2024 09:00 AM AMBULATORY - MEDICINE [facility] [place] [facility] Feb 05, 2024 01:30 PM AMBULATORY - MEDICINE [facility] [place] [facility] Apr 18, 2024 08:30 AM AMBULATORY - MEDICINE [facility] [place] [facility] Apr 21, 2024 01:30 PM AMBULATORY - REHAB MEDICIN E [facility] [place] [facility] Social History: Smoking Status (Most current) and Tobacco Use (All prior to encounter date) This section includes the most current, and the historical, smoking and tobacco- related health factors from the [place] facility where the Encounter took place. Current Smoking Status This section includes the most current smoking, or tobacco-related health factor, from the [place] facility where the Encounter took place. Date/Time Current Smoking Status Comment Fdai ity Apr 16, 2023 09:30 AM [facility]CO [facility] Tobacco Use History This section includes a history of the smoking, or tobacco-related health factors, that were collected on or before the date of the Encounter. The data comes from the [place] facility where the Encounter took place. Date/Time Smoking Status/Tobacco Use Comment [facility]ility May 09, 2022 09:00 AM VA-TOBACCO NEVER USED [facility] [place] [facility] May 10, 2021 08:00 AM VA-TOBACCO NEVER USED [facility] [place] [facility] May 17, 2020 03:00 PM VA-TOBACCO NEVER USED [facility] [place] [facility] Apr 15, 2018 09:31 AM VA-TOBACCO NEVER USED [facility] [place] [facility] Apr 17, 2017 08:56 AM LIFETIME NON-TOBACCO USER [facility] [place] [facility] Apr 13, 2016 08:54 AM LIFETIME NON-TOBACCO USER [facility] [place] [facility] Apr 20, 2010 08:59 AM FORMER SMOKER - <1 00 LIFETIME CIGARETTES [facility] [place] [facility] Aug 12, 2004 09:12 AM HISTORY OF SMOKING [facility] [place] [facility] May 29, 2003 01:11 PM HISTORY OF SMOKING [facility] [place] [facility] May 29, 2003 01:11 PM QUIT TOBACCO USE > 7 YEARS AGO [facility] Encounter Notes: All associated encounter notes This section contains the clinical notes associated to the Encounter. Date/Time Encounter Note(s) Provider Source Dec 11, 2023 11:11 AM ADMINISTRATIVE NOTE: LOCAL TITLE: ADMINISTRATIVE NOTE STANDARD TITLE: ADMINISTRATIVE NOTE DATE OF NOTE: DEC 11, 2023@11:11 ENTRY DATE: DEC 11, 2023@11:12:01 AUTHOR: BRYAN RODARTE EXP COSIGNER: URGENCY: STATUS: COMPLETED calling [facility] leaving message on Voice Mail stating he needed to cancel his Med Rehab appt. for Sunday. Appt. already cancelled at time this note is written No further action taken. /tha/ CELI GUAJARDO PHYSICAL THERAPIST Signed: 12/11/2023 11:13 BRYAN RODARTE [facility]
--- OUTSIDE RECORDS SUMMARY | 2024-05-28 18:53 | XMS_ITS ---
Author Name [facility] [place] Address [address] [place] [id number] Care Team Providers Care Granite Countertop Installer Name Role Phone TERRY YEPEZ Primary Care [...] Relationship to Policy Celeste RUSS [place] MEDIGAP PLAN C PSUED O MEDEX BRONZ E October 17, 2003 [id number] DAKOTA DUDLEY CHARRonald PATIENT [place] MED[place] SUPPLEMEN RYAN MEDEX BRONZ E October 17, 2003 [id number] DAKOTA DUDLEY CHARD PATIENT [place] SUPPLEMEN RYAN MEDEX BRONZ E October 17, 2003 [id number] OCTAVIADAKOTA CHARD PATIENT BCBS [facility] MEDIC[facility] SUPPLEMEN RYAN PSUED O MEDEX BRONZ E October 17, 2003 [id number] DAKOTA DUDLEY CHARRonald PATIENT MEDICARE (WNR) MEDICARE (M) PART A October 17, 2003 PART A [id number] DAKOTA DUDLEY PATIENT MEDICARE (WNR) MEDICARE (M) PART B October 17, 2003 PART B [id number] DAKOTA DUDLEY PATIENT MEDICARE (WNR) MEDICARE (M) PART A October 17, 2003 PART A [id number] [phone] DAKOTA DUDLEYD PATIENT MEDICARE (WNR) MEDICARE (M) PART B October 17, 2003 PART B [id number] [phone] DAKOTA DUDLEYD PATIENT MEDICARE (WNR) MEDICARE (M) PART A October 17, 2003 PART A [id number] DAKOTA DUDLEY PATIENT MEDICARE (WNR) MEDICARE (M) PART B October 17, 2003 PART B [id number] DAKOTA DUDLEY PATIENT Selected Encounter This section includes the information on record at [place] for the Encounter. Date/Time Encounter Type Encounter Description Reason Provider Source Feb 05, 2024 01:30 PM DIABETIC CUSTOM MOLDED SHOE PODIATRY ICD-10-CM M21.371 Foot drop, right foot ROSMERY,CATHRYN Philip Encounter Template Text not used by [place] Assessments - Encounter Diagnoses This section includes the primary and secondary diagnoses documented for the Encounter. Date/Time Primary/Secondary Diagnosis Diagnosis Name Provider Source Feb 23, 2024 10:00 AM PRIMARY Foot drop, right foot ROSMERYCATHRYN [facility] Plan of Treatment: Future Appointments (+ 6 months) and Future Tests (+/- 45 days) The Plan of Treatment section includes future care activities for the patient from all [place] treatmentfacilities. This section includes future appointments and future orders which are active, pending or scheduled. Future Appointments This section includes appointments that were scheduled to occur 6 months from the date of the Encounter, up to a maximum of 20 appointments. The data comes from all [place] treatment facilities. Appointment Date/Time Appointment Type Appointme nt Facility Name Apr 18, 2024 08:30 AM AMBULATORY - MEDICINE [facility] Apr 21, 2024 01:30 PM [facility] Jul 14, 2024 01:00 PM [facility] SUR[facility]ERY [facility] Social History: Smoking Status (Most current) and Tobacco Use (All prior to encounter date) This section includes the most current, and the historical, smoking and tobacco- related health factors from the [place] facility where the Encounter took place. Current Smoking Status This section includes the most current smoking, or tobacco-related health factor, from the [place] facility where the Encounter took place. Date/Time Current Smoking Status Comment Facil ity Apr 16, 2023 09:30 AM VA-TOBACCO NEVER USED [place] [facility] Tobacco Use History This section includes a history of the smoking, or tobacco-related health factors, that were collected on or before the date of the Encounter. The data comes from the [place] facility where the Encounter took place. Date/Time Smoking Status/Tobacco Use Comment F acility May 09, 2022 09:00 AM VA-TOBACCO NEVER USED [place] [facility] [place] [facility] May 10, 2021 08:00 AM VA-TOBACCO NEVER USED [place] [facility] [place] [facility] May 17, 2020 03:00 PM VA-TOBACCO NEVER USED [place] [facility] [place] [facility] Apr 15, 2018 09:31 AM VA-TOBACCO NEVER USED [place] [facility] [place] [facility] Apr 17, 2017 08:56 AM LIFETIME NON-TOBACCO USER [place] [facility] [place] [facility] Apr 13, 2016 08:54 AM LIFETIME NON-TOBACCO USER [place] [facility] [facility] Apr 20, 2010 08:59 AM FORMER SMOKER - <1 00 LIFETIME CIGARETTES [place] [facility] [place] [facility] Aug 12, 2004 09:12 AM HISTORY OF SMOKING [place] [facility] [place] [facility] May 29, 2003 01:11 PM HISTORY OF SMOKING [place] [facility] [place] [facility] May 29, 2003 01:11 PM QUIT TOBACCO USE > 7 YEARS AGO [place] [facility] [place] [facility] Encounter Notes: All associated encounter notes This section contains the clinical notes associated to the Encounter. Date/Time Encounter Note(s) Provider Source Feb 05, 2024 01:52 PM NURSING OUTPATIENT NOTE: LOCAL TITLE: NURSING/SPECIALTY CLINIC NOTE STANDARD TITLE: NURSING OUTPATIENT NOTE DATE OF NOTE: FEB 05, 2024@13:52 ENTRY DATE: FEB 05, 2024@13:52:06 AUTHOR: CATHRYN BOTELLO EXP COSIGNER: URGENCY: STATUS: COMPLETED F: Shoe Fitting D/A: Patient received and was fitted for shoes. Instructed on the proper breaking in of the shoes. Patient informed to call with any problems or concerns. DX:Other Hammer Toe(s) (Acquired), unspecified Foot /es/ CATHRYN BOTELLO LPN LICENSED PRACTICAL NURSE Signed: 02/05/2024 13:57 CATHRYN BOTELLO CNTRL [facility]
--- OUTSIDE RECORDS SUMMARY | 2024-05-28 18:53 | XMS_ITS | Encounter Summary ---
Author Name [facility] [place] Address [address] [place] [id number] Care Team Providers Care Coach Builder Name Role Phone TERRY YEPEZ Primary Care [...] Relationship to Policy Celeste RUSS [place] MEDIGAP PLAN C PSUED O MEDEX BRONZ E October 17, 2003 [id number] DAKOTA DUDLEY CHARD PATIENT [place] MED[place] SUPPLEMEN RYAN MEDEX BRONZ E October 17, 2003 [id number] DAKOTA DUDLEY CHARD [place] R[place]AN MEDEX BRONZ E October 17, 2003 [id number] DAKOTA DUDLEY CHARRonald PATIENT BCBS [facility] MEDICARE SUPPLEMEN RYAN PSUED O MEDEX BRONZ E October 17, 2003 [id number] DAKOTA DUDLEY CHARRonald PATIENT MEDICARE (WNR) MEDICARE (M) PART A October 17, 2003 PART A [id number] DAKOTA DUDLEY PATIENT MEDICARE (WNR) MEDICARE (M) PART B October 17, 2003 PART B [id number] DAKOTA DUDLEY PATIENT MEDICARE (WNR) MEDICARE (M) PART A October 17, 2003 PART A [id number] DAKOTA DUDLEY PATIENT MEDICARE (WNR) MEDICARE (M) PART B October 17, 2003 PART B [id number] DAKOTA DUDLEY PATIENT MEDICARE (WNR) MEDICARE (M) PART A October 17, 2003 PART A [id number] DAKOTA DUDLEY PATIENT MEDICARE (WNR) MEDICARE (M) PART B October 17, 2003 PART B [id number] [phone] DAKOTA DUDLEY PATIENT Selected Encounter This section includes the information on record at [place] for the Encounter. Date/Time Encounter Type Encounter Description Reason Pro vider Source Jun 04, 2023 11:08 AM Outpatient Encounter PODIATRY IHE Encounter Template Text not used by [place] Plan of Treatment: Future Appointments (+ 6 months) and Future Tests (+/- 45 days) The Plan of Treatment section includes future care activities for the patient from all [place] treatmentfacilities. This section includes future appointments and future orders which are active, pending or scheduled. Future Appointments This section includes appointments that were scheduled to occur 6 months from the date of the Encounter, up to a maximum of 20 appointments. The data comes from all [place] treatment facilities. Appointment Date/Time Appointment Type Appointme nt Facility Name Jun 05, 2023 03:30 PM AMBULATORY - MEDICINE [place] [facility] Jun 07, 2023 01:00 PM AMBULATORY - SURGERY [facility] Jun 07, 2023 01:30 PM AMBULATORY - SURGERY [facility] Jun 07, 2023 02:00 PM AMBULATORY - NONE [facility] Jul 12, 2023 01:30 PM AMBULATORY - NONE [facility] Jul 12, 2023 02:30 PM AMBULATORY - SURGERY [facility] Jul 12, 2023 03:00 PM AMBULATORY - SURGERY [facility] Oct 02, 2023 01:00 PM AMBULATORY - MEDICINE [place] [facility] Social History: Smoking Status (Most current) and Tobacco Use (All prior to encounter date) This section includes the most current, and the historical, smoking and tobacco- related health factors from the [place] facility where the Encounter took place. Current Smoking Status This section includes the most current smoking, or tobacco-related health factor, from the [place] facility where the Encounter took place. Date/Time Current Smoking Status Comment Fadi ity Apr 16, 2023 09:30 AM VA-TOBACCO NEVER USED [place] [place] [facility] Tobacco Use History This section includes a history of the smoking, or tobacco-related health factors, that were collected on or before the date of the Encounter. The data comes from the [place] facility where the Encounter took place. Date/Time Smoking Status/Tobacco Use Comment F acility May 09, 2022 09:00 AM VA-TOBACCO NEVER USED [place] [facility] [place] [facility] May 10, 2021 08:00 AM VA-TOBACCO NEVER USED [place] [facility] [place] [facility] May 17, 2020 03:00 PM VA-TOBACCO NEVER USED [place] [facility] [facility] Apr 15, 2018 09:31 AM VA-TOBACCO NEVER USED [place] [facility] [place] [facility] Apr 17, 2017 08:56 AM LIFETIME NON-TOBACCO USER [place] [facility] [place] [facility] Apr 13, 2016 08:54 AM LIFETIME NON-TOBACCO USER [place] [facility] [place] [facility] Apr 20, 2010 08:59 AM FORMER SMOKER - <1 00 LIFETIME CIGARETTES [place] [facility] [place] [facility] Aug 12, 2004 09:12 AM HISTORY OF SMOKING [place] [facility] [place] [facility] May 29, 2003 01:11 PM HISTORY OF SMOKING [place] [facility] [place] [facility] May 29, 2003 01:11 PM QUIT TOBACCO USE > 7 YEARS AGO [place] [facility] [facility] Encounter Notes: All associated encounter notes This section contains the clinical notes associated to the Encounter. Date/Time Encounter Note(s) Provider Source Jun 04, 2023 11:08 AM TELEPHONE ENCOUNTE R NOTE: LOCAL TITLE: TELEPHONE NOTE/SPECIALTY CLINIC STANDARD TITLE: TELEPHONE ENCOUNTER NOTE DATE OF NOTE: JUN 04, 2023@11:08 ENTRY DATE: JUN 04, 2023@11:09:01 AUTHOR: CHAMP FUNES EXP COSIGNER: URGENCY: STATUS: COMPLETED TELEPHONE NOTE/SPECIALTY CLINIC Has ADDENDA [facility] called and said that they didnt get a link in their email for tmrws [facility]. I resent the link twice and they still didnt get anything. Let her know that we would just wait until 2pm to see if they end up getting a link. I will call at 2pm to follow up. If they dont get anything I will follow up with you to let you know that there is still an issue and wait for further instruction. DEE /tha/ CHAMP FUNES ADVANCED COLLEGE ATHLETIC DIRECTOR Signed: 06/04/2023 11:11 Receipt Acknowledged By: 06/04/2023 17:34 /tha/ TIMUR SANTIAGO DPM PODIATRY ATTENDING 06/04/2023 ADDENDUM STATUS: COMPLETED Entered in new email and resent link. [place] is all set for tmrws appointment. /tha/ CHAMP FUNES ADVANCED COLLEGE ATHLETIC DIRECTOR Signed: 06/04/2023 14:47 CHAMP FUNES [place] [facility]
--- OUTSIDE RECORDS SUMMARY | 2024-05-28 18:53 | XMS_ITS | Encounter Summary ---
Author Name [facility] [place] Address [address] [place] [address] Care Team Providers Care Assistant Scientist Name Role Phone TERRY YEPEZ Primary Care [...] Relationship to Policy Celeste RUSS [place] MEDIGAP PLAN C PSUED O MEDEX BRONZ E October 17, 2003 [id number] OCTAVIA,DAKOTA CHARRonald PATIENT [place] MED[place] SUPPLEMEN RYAN MEDEX BRONZ E October 17, 2003 [id number] OCTAVIA,RI CHARD [place]IENT [place] SU[place]LEMEN RYAN MEDEX BRONZ E October 17, 2003 [id number] OCTAVIA,RI CHARD PATIENT BCBS [facility] MEDICARE SUPPLEMEN RYAN PSUED O MEDEX BRONZ E October 17, 2003 [id number] OCTAVIA,DAKOTA CHARRonald PATIENT MEDICARE (WNR) MEDICARE (M) PART A October 17, 2003 PART A [id number] DAKOTA DUDLEY PATIENT MEDICARE (WNR) MEDICARE (M) PART B October 17, 2003 PART B [id number] DAKOTA DUDLEY PATIENT MEDICARE (WNR) MEDICARE (M) PART A October 17, 2003 PART A [id number] DAKOTA DUDLEY PATIENT MEDICARE (WNR) MEDICARE (M) PART B October 17, 2003 PART B [id number] [phone] DAKOTA DUDLEY PATIENT MEDICARE (WNR) MEDICARE (M) PART A October 17, 2003 PART A [id number] [phone] DAKOTA DUDLEY PATIENT MEDICARE (WNR) MEDICARE (M) PART B October 17, 2003 PART B [id number] DAKOTA DUDLEY PATIENT Selected Encounter This section includes the information on record at [place] for the Encounter. Date/Time Encounter Type Encounter Description Reason Provider Source Nov 30, 2023 10:39 AM Outpatient Encounter PROSTHETICS/ORTHOTI TIMUR RAMIREZ Encounter Template Text not used by [place] Plan of Treatment: Future Appointments (+ 6 months) and Future Tests (+/- 45 days) The Plan of Treatment section includes future care activities for the patient from all [place] treatmentfacilities. This section includes future appointments and future orders which are active, pending or scheduled. Future Appointments This section includes appointments that were scheduled to occur 6 months from the date of the Encounter, up to a maximum of 20 appointments. The data comes from all [place] treatment facilities. Appointment Date/Time Appointment Type Appointme nt Facility Name Dec 31, 2023 01:00 PM AMBULATORY [place]ICINE [place] [facility] Jan 17, 2024 09:00 AM AMBULATORY [place]ICINE [place] [facility] [facility] Feb 05, 2024 01:30 PM AMBULATORY - [place]ICINE [place] [facility] [place] [facility] Apr 18, 2024 08:30 AM AMBULATORY - MEDICINE [place] [facility] [facility] Apr 21, 2024 01:30 PM AMBULATORY - REHAB MEDICIN E [place] [facility] [place] [facility] Social History: Smoking Status (Most current) and Tobacco Use (All prior to encounter date) This section includes the most current, and the historical, smoking and tobacco- related health factors from the [place] facility where the Encounter took place. Current Smoking Status This section includes the most current smoking, or tobacco-related health factor, from the [place] facility where the Encounter took place. Date/Time Current Smoking Status Comment Facil ity Apr 16, 2023 09:30 AM [facility] Tobacco Use History This section includes a history of the smoking, or tobacco-related health factors, that were collected on or before the date of the Encounter. The data comes from the [place] facility where the Encounter took place. Date/Time Smoking Status/Tobacco Use Comment [place] acility May 09, 2022 09:00 AM VA-TOBACCO NEVER USED [place] [facility] [place] [facility] May 10, 2021 08:00 AM VA-TOBACCO NEVER USED [place] [facility] [place] [facility] May 17, 2020 03:00 PM VA-TOBACCO NEVER USED [place] [facility] [facility] Apr 15, 2018 09:31 AM VA-TOBACCO NEVER USED [place] [facility] [place] [facility] Apr 17, 2017 08:56 AM LIFETIME NON-TOBACCO USER [place] [facility] [place] [facility] Apr 13, 2016 08:54 AM LIFETIME NON-TOBACCO USER [place] [facility] [place] [facility] Apr 20, 2010 08:59 AM FORMER SMOKER - <1 00 LIFETIME CIGARETTES [place] [facility] [place] [facility] Aug 12, 2004 09:12 AM HISTORY OF SMOKING [place] [facility] [place] [facility] May 29, 2003 01:11 PM HISTORY OF SMOKING [place] [facility] [facility] May 29, 2003 01:11 PM QUIT TOBACCO USE > 7 YEARS AGO [facility]
--- OUTSIDE RECORDS SUMMARY | 2024-05-28 18:53 | XMS_ITS ---
Author Name [facility] [place] [facility] [place] [facility] [facility] [place] Address [address] [place] [id number] Care Team Providers Care Surg Tech Name Role Phone TERRY YEPEZ Primary Care [...] O MEDEX BRONZ E October 17, 2003 [id number] OCTAVIA,DAKOTA CHARD PATIENT [place] MED[place] SUPPLEMEN RYAN MEDEX BRONZ E October 17, 2003 [id number] [phone] OCTAVIA,RI CHARD PATIENT [place] MED[place] SUPPLEMEN RYAN MEDEX BRONZ E October 17, 2003 [id number] DAKOTA DUDLEY CHARD PATIENT BCBS OF [facility] MEDICARE SUPPLEMEN RYAN PSUED O MEDEX BRONZ E October 17, 2003 [id number] DAKOTA DUDLEY CHARD PATIENT MEDICARE (WNR) MEDICARE (M) PART A October 17, 2003 PART A [id number] DAKOTA DUDLEY PATIENT MEDICARE (WNR) MEDICARE (M) PART B October 17, 2003 PART B [id number] DAKOTA DUDLEY PATIENT MEDICARE (WNR) MEDICARE (M) PART A October 17, 2003 PART A [id number] DAKOTA DUDLEY PATIENT MEDICARE (WNR) MEDICARE (M) PART B October 17, 2003 PART B [id number] DAKOTA DUDLEY PATIENT MEDICARE (WNR) MEDICARE (M) PART A October 17, 2003 PART A [id number] DAKOTA DUDLEY PATIENT MEDICARE (WNR) MEDICARE (M) PART B October 17, 2003 PART B [id number] DAKOTA DUDLEY PATIENT Selected Encounter This section includes the information on record at [place] for the Encounter. Date/Time Encounter Type Encounter Description Reason Provider Source Jun 05, 2023 03:30 PM OFFICE O/P EST SF 10-19 MIN PODIATRY ICD-10-CM R60.9 Edema, unspecified TIMUR SANTIAGO Philip Encounter Template Text not used by [place] Assessments - Encounter Diagnoses This section includes the primary and secondary diagnoses documented for the Encounter. Date/Time Primary/Secondary Diagnosis Diagnosis Name Provider Source Jun 29, 2023 04:23 PM PRIMARY Edema, unspecified TIMUR SANTIAGO [place] [facility] Plan of Treatment: Future Appointments (+ [...] Appointment Type Appointme nt Facility Name Jun 07, 2023 01:00 PM AMBULATORY - SURGERY [facility] Jun 07, 2023 01:30 PM AMBULATORY - SURGERY [facility] Jun 07, 2023 02:00 PM AMBULATORY - NONE [facility] Jul 12, 2023 01:30 PM AMBULATORY - NONE [facility] Jul 12, 2023 02:30 PM AMBULATORY - SURGERY [facility] Jul 12, 2023 03:00 PM AMBULATORY - SURGERY [facility] Oct 02, 2023 01:00 PM AM[facility]ULATORY [facility]INE [facility] [place] [facility] Social History: Smoking Status (Most current) and Tobacco Use (All prior to encounter date) This section includes the most current, and the historical, smoking and tobacco- related health factors from the [place] facility where the Encounter took place. Current Smoking Status This section includes the most current smoking, or tobacco-related health factor, from the [place] facility where the Encounter took place. Date/Time Current Smoking Status Comment Facil ity Apr 16, 2023 09:30 AM VA-TOBACCO NEVER USED [place] [facility] [place] [facility] Tobacco Use History This section includes a history of the smoking, or tobacco-related health factors, that were collected on or before the date of the Encounter. The data comes from the [place] facility where the Encounter took place. Date/Time Smoking Status/Tobacco Use Comment F acility May 09, 2022 09:00 AM VA-TOBACCO NEVER USED [facility] [place] [facility] May 10, 2021 08:00 AM VA-TOBACCO NEVER USED [facility] [place] [facility] May 17, 2020 03:00 PM VA-TOBACCO NEVER USED [facility] [place] [facility] Apr 15, 2018 09:31 AM VA-TOBACCO NEVER USED [facility] [place] [facility] Apr 17, 2017 08:56 AM LIFETIME NON-TOBACCO USER [facility] [place] [facility] Apr 13, 2016 08:54 AM LIFETIME NON-TOBACCO USER [facility] [place] [facility] Apr 20, 2010 08:59 AM FORMER SMOKER - <1 00 LIFETIME CIGARETTES [facility] [place] [facility] Aug 12, 2004 09:12 AM HISTORY OF SMOKING [facility] [place] [facility] May 29, 2003 01:11 PM HISTORY OF SMOKING [facility] [place] [facility] May 29, 2003 01:11 PM QUIT TOBACCO USE > 7 YEARS AGO [facility] [place] [facility] Encounter Notes: All associated encounter notes This section contains the clinical notes associated to the Encounter. Date/Time Encounter Note(s) Provider Source Jul 10, 2023 06:09 PM ADDENDUM: LOCAL TITLE: Addendum STANDARD TITLE: ADDENDUM DATE OF NOTE: JUL 10, 2023@18:09:16 ENTRY DATE: JUL 10, 2023@18:09:17 AUTHOR: TIMUR SANTIAGO COSIGNER: URGENCY: STATUS: COMPLETED please resched in September to pod a Clinic /es/ TIMUR SANTIAGO DPPatti PODIATRY ATTENDING Signed: 07/10/2023 18:09 Receipt Acknowledged By: 07/11/2023 09:53 /es/ GIANNA DE LA CRUZ [facility] 07/11/2023 09:59 /es/ CATHRYN BOTELLO LPN LICENSED PRACTICAL NURSE --- Original Document --- 06/05/23 PODIATRY NOTE: [place] [employer] (VV) Standard Documentation [facility] Clinician Resources Only: E911 (Emergency Call Relay Center): [phone] National Veterans Crisis Line - 988 then press #1. [facility] Suicide Coordinator [phone], Ext. [phone]; Back-up Ext. [phone] [place] PoliceLEE ANN [place] [phone] Introduction: Visit is being conducted by [facility]. [place] identified with 2 identifiers: [X] Full Name [X] Date of [ ] VA ID Card Emergency Plan: [place] confirmed and/or provided the following information in case of emergency or technology failure. PATIENT PHONE - PHONE NUMBER [CELLULAR] - Is patient phone number correct, if not, enter below: [place]'s phone number: ILAN DUDLEY [address], [place], [address] [place]'s present location and address for appointment: same as above [place]'s emergency contact name and phone number: Tiffanie De Los Santos [facility] [phone] [place] reported that location is private and safe: Yes Informed Consent: [place] informed of the risks and benefits of Telehealth video care. has the right to refuse video services. If refuses video visit, a [id number] visit will be scheduled. [place] verbalized consent for this video visit: Yes provided consent for any other persons present for visit: Yes If yes, who and relationship to patient: Secure visit: Visit was locked for security and privacy:Yes Purpose of visit: Patient is an 82-year-old male with unilateral edema of the right leg, for which there was no recently good explanation for including no evidence or history of trauma or surgical intervention, no history of DVT, no history of cellulitis, and which has so far been unresponsive to compression for which I have arranged for vascular consult in [place] at the [place] [facility] [place]. Purpose of today's visit was to inform patient that consult has been scheduled and patient has visit on June [address] Pandya at [place] [facility]. We briefly discussed patient's condition today and it remains unchanged however stable. Patient was grateful for the consult and arranging the appointment. We will follow-up with the patient after recommendations and consult complete. Patient's chart was reviewed for this visit no treatments or updates were offered mainly accounting to notify patient for upcoming appointment. This will be billed as a brief visit synchronous. /tha/ TIMUR SANTIAGO DPM PODIATRY ATTENDING Signed: 06/26/2023 09:22 07/10/2023 ADDENDUM STATUS: COMPLETED [place] called asking when he should make a follow up appt.He stated he was seen every 4 months in the past. Phone number on file has been confirmed. Please advise on scheduling /tha/ JANICE GU LINE LOCATOR Signed: 07/10/2023 09:42 Receipt Acknowledged By: 07/10/2023 18:09 /tha/ TIMUR SANTIAGO DPM PODIATRY ATTENDING 07/11/2023 ADDENDUM STATUS: COMPLETED Call placed to , no answer, left voice message to return call to ext. [phone] to [facility] in September 2023. /tha/ CATHRYN BOTELLO LPN LICENSED PRACTICAL NURSE Signed: 07/11/2023 08:58 TIMUR SANTIAGO [place] [facility] [place] [facility] Jul 10, 2023 09:41 AM ADDENDUM: LOCAL TITLE: Addendum STANDARD TITLE: ADDENDUM DATE OF NOTE: JUL 10, 2023@09:41:15 ENTRY DATE: JUL 10, 2023@09:41:16 AUTHOR: JANICE GU EXP COSIGNER: URGENCY: STATUS: COMPLETED called asking when he should make a follow up appt.He stated he was seen every 4 months in the past. Phone number on file has been confirmed. Please advise on scheduling /es/ JANICE GU LINE LOCATOR Signed: 07/10/2023 09:42 Receipt Acknowledged By: 07/10/2023 18:09 /tha/ TIMUR SANTIAGO DPPatti PODIATRY ATTENDING --- Original Document --- 06/05/23 PODIATRY NOTE: [place] [employer] (VV) Standard Documentation [facility] Clinician Resources Only: E911 (Emergency Call Relay Center): [phone] National Veterans Crisis Line - 988 then press #1. [facility] Suicide Coordinator [phone], Ext. [phone]; Back-up Ext. [phone] [place] Police, [place] [phone] Introduction: Visit is being conducted by [employer]. identified with 2 identifiers: [X] Full Name [X] Date of [ ] VA ID Card Emergency Plan: confirmed and/or provided the following information in case of emergency or technology failure. PATIENT PHONE - PHONE NUMBER [CELLULAR] - Is patient phone number correct, if not, enter below: 's phone number: ILAN DUDLEY [address] [place] [address], [phone] [place]'s present location and address for appointment: same as above [place]'s emergency contact name and phone number: Tiffanie De Los Santos [facility] [phone] [place] reported that location is private and safe: Yes Informed Consent: informed of the risks and benefits of Telehealth video care. has the right to refuse video services. If refuses video visit, a [id number] visit will be scheduled. [place] verbalized consent for this video visit: Yes [place] provided consent for any other persons present for visit: Yes If yes, who and relationship to patient: Secure visit: Visit was locked for security and privacy:Yes Purpose of visit: Patient is an 82-year-old male with unilateral edema of the right leg, for which there was no recently good explanation for including no evidence or history of trauma or surgical intervention, no history of DVT, no history of cellulitis, and which has so far been unresponsive to compression for which I have arranged for vascular consult in [place] at the [place] [facility] [place]. Purpose of today's visit was to inform patient that consult has been scheduled and patient has visit on June [address] Pandya at [place] [facility]. We briefly discussed patient's condition today and it remains unchanged however stable. Patient was grateful for the consult and arranging the appointment. We will follow-up with the patient after recommendations and consult complete. Patient's chart was reviewed for this visit no treatments or updates were offered mainly accounting to notify patient for upcoming appointment. This will be billed as a brief visit synchronous. /tha/ TIMUR SANTIAGO DPM PODIATRY ATTENDING Signed: 06/26/2023 09:22 07/10/2023 ADDENDUM STATUS: UNSIGNED You may not VIEW this UNSIGNED Addendum. JANICE GU [place] [facility] [place] [facility] Jun 05, 2023 03:52 PM PODIATRY NOTE: LOCAL TITLE: PODIATRY NOTE STANDARD TITLE: PODIATRY NOTE DATE OF NOTE: JUN 05, 2023@15:52 ENTRY DATE: JUN 25, 2023@11:07:42 AUTHOR: TIMUR SANTIAGO EXP COSIGNER: URGENCY: STATUS: COMPLETED PODIATRY NOTE Has ADDENDA [place] [employer] ([facility]) Standard Documentation [facility] Clinician Resources Only: E911 (Emergency Call Relay Center): [phone] National Veterans Crisis Line - 988 then press #1. [facility] Suicide Coordinator [phone], Ext. [phone]; Back-up Ext. [phone] [place] Police, [place] [phone] Introduction: Visit is being conducted by [place] [employer]. identified with 2 identifiers: [X] Full Name [X] Date of [ ] VA ID Card Emergency Plan: confirmed and/or provided the following information in case of emergency or technology failure. PATIENT PHONE - PHONE NUMBER [CELLULAR] - Is patient phone number correct, if not, enter below: [place]'s phone number: ILAN DUDLEY [address], [place], [address] 's present location and address for appointment: same as above 's emergency contact name and phone number: Tiffanie De Los Santos [facility] [phone] reported that location is private and safe: Yes Informed Consent: [place] informed of the risks and benefits of Telehealth video care. [place] has the right to refuse video services. If refuses video visit, a mlhp-[id number] visit will be scheduled. [place] verbalized consent for this video visit: Yes provided consent for any other persons present for visit: Yes If yes, who and relationship to patient: Secure visit: Visit was locked for security and privacy:Yes Purpose of visit: Patient is an 82-year-old male with unilateral edema of the right leg, for which there was no recently good explanation for including no evidence or history of trauma or surgical intervention, no history of DVT, no history of cellulitis, and which has so far been unresponsive to compression for which I have arranged [place] [facility] [place] [facility] [place]. Purpose of today's visit was to inform patient that consult has been scheduled and patient has visit on June [address] Pandya at [place] [facility]. We briefly discussed patient's condition today and it remains unchanged however stable. Patient was grateful for the consult and arranging the appointment. We will follow-up with the patient after recommendations and consult complete. Patient's chart was reviewed for this visit no treatments or updates were offered mainly accounting to notify patient for upcoming appointment. This will be billed as a brief visit synchronous. /es/ TIMUR SANTIAGO DPM PODIATRY ATTENDING Signed: 06/26/2023 09:22 07/10/2023 ADDENDUM STATUS: COMPLETED [place] called asking when he should make a follow up appt.He stated he was seen every 4 months in the past. Phone number on file has been confirmed. Please advise on scheduling /tha/ JANICE GU LINE LOCATOR Signed: 07/10/2023 09:42 Receipt Acknowledged By: 07/10/2023 18:09 /tha/ TIMUR SANTIAGO DPM PODIATRY ATTENDING 07/10/2023 ADDENDUM STATUS: COMPLETED please resched in September to pod a Clinic /tha/ TIMUR SANTIAGO DPM PODIATRY ATTENDING Signed: 07/10/2023 18:09 Receipt Acknowledged By: * AWAITING SIGNATURE * GIANNA DE LA CRUZ * AWAITING SIGNATURE * CATHRYN BOTELLO 07/11/2023 ADDENDUM STATUS: COMPLETED Call placed to , no answer, left voice message to return call to ext. [phone] to [facility] in September 2023. /tha/ CATHRYN BOTELLO LPN LICENSED PRACTICAL NURSE Signed: 07/11/2023 08:58 TIMUR SANTIAGO [place] [facility]
--- OUTSIDE RECORDS SUMMARY | 2024-05-28 18:53 | XMS_ITS ---
Author Name [facility] [place] [facility] [place] Address [address] [place] [address] Care Team Providers Care Wrong Address Clerk Name Role Phone TERRY YEPEZ Primary [...] Relationship to Policy Celeste RUSS [place] MEDIGAP PLAN C PSUED O MEDEX BRONZ E October 17, 2003 [id number] OCTAVIA,DAKOTA CHARD PATIENT BCBS [place] MEDICARE SUPPLEMEN RYAN MEDEX BRONZ E October 17, 2003 [id number] OCTAVIA,DAKOTA CHARD PATIENT BCBS [place] MEDICARE SUPPLEMEN RYAN MEDEX BRONZ E October 17, 2003 [id number] DAKOTA DUDLEY CHARD PATIENT BCBS OF [facility] MEDICARE SUPPLEMEN RYAN PSUED O MEDEX BRONZ E October 17, 2003 [id number] OCTAVIA,RI CHARD PATIENT MEDICARE (WNR) MEDICARE (M) PART A October 17, 2003 PART A [id number] DAKOTA DUDLEY PATIENT MEDICARE (WNR) MEDICARE (M) PART B October 17, 2003 PART B [id number] DAKOTA DUDLEY PATIENT MEDICARE (WNR) MEDICARE (M) PART A October 17, 2003 PART A [id number] [phone] DAKOTA DUDLEY PATIENT MEDICARE (WNR) MEDICARE (M) PART B October 17, 2003 PART B [id number] DAKOTA DUDLEY PATIENT MEDICARE (WNR) MEDICARE (M) PART A October 17, 2003 PART A [id number] DAKOTA DUDLEY PATIENT MEDICARE (WNR) MEDICARE (M) PART B October 17, 2003 PART B [id number] DAKOTA DUDLEY PATIENT Selected Encounter This section includes the information on record at [place] for the Encounter. Date/Time Encounter Type Encounter Description Reason Provider Source Oct 02, 2023 01:00 PM OFFICE O/P EST MOD 30 MIN PODIATRY ICD-10-CM M21.371 Foot drop, right foot DIAZ NAVA [facility] Encounter Template Text not used by [place] Assessments - Encounter Diagnoses This section includes the primary and secondary diagnoses documented for the Encounter. Date/Time Primary/Secondary Diagnosis Diagnosis Name Provider Source October 26, 2023 08:49 AM PRIMARY Foot drop, right foot DIAZ NAVA [facility] October 26, 2023 08:49 AM SECONDARY Edema, unspecified DIAZ NAVA [facility] Plan of Treatment: Future Appointments (+ 6 months) and Future Tests (+/- 45 days) The Plan of Treatment section includes future care activities for the patient from all [place] treatmentfacilities. This section includes future appointments and future orders which are active, pending or scheduled. Future Appointments This section includes appointments that were scheduled to occur 6 months from the date of the Encounter, up to a maximum of 20 appointments. The data comes from all [place] treatment facilities. Appointment Date/Time Appointment Type Appointme nt Facility Name Dec 31, 2023 01:00 PM AM[facility]ULATORY [facility] MEDICINE [facility] [place] [facility] Jan 17, 2024 09:00 AM AMBULATORY - MEDICINE [facility] [place] [facility] Feb 05, 2024 01:30 PM [facility] Social History: Smoking Status (Most current) and Tobacco Use (All prior to encounter date) This section includes the most current, and the historical, smoking and tobacco- related health factors from the [place] facility where the Encounter took place. Current Smoking Status This section includes the most current smoking, or tobacco-related health factor, from the [place] facility where the Encounter took place. Date/Time Current Smoking Status Comment Facil ity Apr 16, 2023 09:30 AM VA-TOBACCO NEVER USED [place] [facility] Tobacco Use History This section includes a history of the smoking, or tobacco-related health factors, that were collected on or before the date of the Encounter. The data comes from the [place] facility where the Encounter took place. Date/Time Smoking Status/Tobacco Use Comment F acility May 09, 2022 09:00 AM VA-TOBACCO NEVER USED [facility] [place] [facility] May 10, 2021 08:00 AM VA-TOBACCO NEVER USED [facility] [place] [facility] May 17, 2020 03:00 PM VA-TOBACCO NEVER USED [facility] [place] [facility] Apr 15, 2018 09:31 AM VA-TOBACCO NEVER USED [facility] [place] [facility] Apr 17, 2017 08:56 AM LIFETIME NON-TOBACCO USER [facility] [place] [facility] Apr 13, 2016 08:54 AM LIFETIME NON-TOBACCO USER [facility] [place] [facility] Apr 20, 2010 08:59 AM FORMER SMOKER - <1 00 LIFETIME CIGARETTES [facility] [place] [facility] Aug 12, 2004 09:12 AM HISTORY OF SMOKING [facility] [place] [facility] May 29, 2003 01:11 PM HISTORY OF SMOKING [facility] [place] [facility] May 29, 2003 01:11 PM QUIT TOBACCO USE > 7 YEARS AGO [place] [facility] [place] [facility] Encounter Notes: All associated encounter notes This section contains the clinical notes associated to the Encounter. Date/Time Encounter Note(s) Provider Source Oct 02, 2023 01:45 PM PODIATRY NOTE: LOCAL TITLE: PODIATRY NOTE STANDARD TITLE: PODIATRY NOTE DATE OF NOTE: OCT 02, 2023@13:45 ENTRY DATE: OCT 02, 2023@13:45:29 AUTHOR: DIAZ NAVA EXP COSIGNER: URGENCY: STATUS: COMPLETED Podiatry [facility] Follow up Provider: Diaz Nava Date: OCT 03, 2023 ILAN DUDLEY [address] [place] [address] October [birth year] MALE [id number] PATIENT PHONE - Primary Care: TERRY YEPEZ Visit Concern: Patient is an 82-year-old male who was seen previously in May with unilateral right leg swelling without history of DVT cellulitis or trauma. During that visit patient was seen statically and was not observed to ambulate into clinic. He was referred to the [facility] for unilateral edema work-up which included a CT scan which was negative for any pelvic mass, and patient was fitted with compression stockings and CircAid for the right leg which have improved swelling but still present. Today patient was observed ambulating into clinic with a noticeable right foot drop which she states he has had for several years has not been formally worked up has never been given a brace. On exam below patient has inability to dorsiflex and invert her right foot and in addition as might be expected if patient had lumbar origin pathology has decreased sensation along the L4-5 dermatome. Service connections:Service Connected Disabilities with % Eligibility: SC LESS THAN 50% VERIFIED Total S/C %: 10 SCARS 0% S/C NEOPLASM, MALIGNANT, SKIN 0% S/C FACIAL SCARS 10% S/C SCARS 0% S/C 2ND DEGREE VICTORIA 0% S/C Medical problems active: Active Problem Exposure to potentially hazardous s 08/02/2023 ERNESTO MARRERO Permanent cardiac pacemaker R69., O 04/15/2018 TERRY [...] (ICD-9-CM 172.9) 1 08/12/2004 EMILY RODRIGUEZ Active mediciation: Active Outpatient Medications (including Supplies): Active Non-VA [...] WITH DIRECTIONS PROVIDED FROM THE [facility] Allergies: Data on this list may not be complete. Please check JLV. FACILITY ALLERGY/ADR -------- No Remote Allergy/ADR Data available for this patient [place] [facility] [place] [facility] AMOXICILLIN [facility] CALCIUM [facility] MINOCYCLINE Lab data: CBC TREND Collection DT Spec WBC RBC HGB HCT MCV MCH PLT 04/09/2023 07:54 BLOOD 4.50 4.13 L 13.4 38.3 L 92.7 32.4 133 L 05/03/2022 08:41 BLOOD 5.99 4.39 14.0 41.1 93.6 31.9 157 05/02/2021 07:36 BLOOD 5.22 4.41 13.7 41.7 94.6 31.1 159 04/06/2020 08:20 BLOOD 6.51 4.41 14.1 42.0 95.2 32.0 166 04/08/2019 11:59 BLOOD 6.19 4.46 13.9 41.6 93.3 31.2 149 -- CHEM 7 TREND LAB CUMULATIVE SELECTED Collection DT Spec GLUCOSE BUN CREATIN Sodium K+/Pot CL CO2 04/09/2023 07:54 SERUM 109 H 18 1.00 139 4.3 105 25 05/03/2022 08:41 SERUM 94 23 1.00 137 4.3 101 28 05/02/2021 07:36 SERUM 103 H 22 0.94 138 4.3 101 28 04/06/2020 08:20 SERUM 105 H 21 1.02 136 4.5 99 L 28 04/08/2019 11:59 SERUM 93 17 0.95 136 4.1 101 26 Collection DT Spec eGFR 04/06/2009 09:11 SERUM >60 03/17/2008 09:28 SERUM >60 03/15/2007 09:32 SERUM >60 10/12/2005 10:02 SERUM >60 LAB CUMULATIVE SELECTED 2 No selection items chosen for this component. CHEM 7 Results Collection DT Spec Sodium K+/Pot CL CO2 GLUCOSE BUN eGFR 04/09/2023 07:54 SERUM 139 4.3 105 25 109 H 18 05/03/2022 08:41 SERUM 137 4.3 101 28 94 23 (Case [id number] COMPLETE) CT ABDOMEN AND PELVIS WITH CONTRA(CT Detailed) CPT:04113 Contrast Media : Non-ionic Iodinated Reason for Study: New RLE edema Clinical History: Anvil Worker: Mumtaz [id number] New RLE lymphedema r/o pelvic compressive mass Is the patient a diabetic? No Is the patient taking Metformin or Glucophage? No Report Status: Verified Date Reported: JUL 12, 2023 Date Verified: JUL 12, 2023 Pocketbook Maker E-Sig:/ES/VENITA WORRELL MD Report: Impression: EXAM: CT [...] Primary Interpreting Staff: VENITA WORRELL MD, Radiologist (Pocketbook Maker) Primary Interpreting Resident: CY HARTMANN, HAND BINDERY ASSEMBLY WORKER / Pocketbook Maker E-Sig:/THA/TERELL PANDYA MD Report: Impression: I, Dr. Pandya, have reviewed the vascular laboratory study and agree with the findings. Interpretation: Vascular duplex as below, no evidence of refluxin the right lower extremity. /tha/ TERELL PANDYA MD SURGICAL ATTENDING Signed: 07/13/2023 07:36 ======= --- Original Document --- 07/12/23 VASCULAR LAB STUDY: VASCULAR LAB REPORT for ILAN DUDLEY VENOUS REFLUX DUPLEX STUDY Diagnosis for this procedure: PERIPHERAL VASCULAR DISEASE Procedure Performed: Duplex Ultrasound of lower extremity veins Physician: Ayde Koroma MD Pharmaceutical Detailer: Gretta Best RVT Indication for procedure: Edema RIGHT LOWER [...] reflux in the right LE. INCIDENTAL FINDINGS: Noninvasive vascular studies of the bilateral extremities performed in [place] show noncompressible RAFAL with values 1.3 bilateral, however waveforms are normal with good upstroke all the way down to metatarsal level. Bilateral. Well-appearing awake alert oriented x3, high steppage unilateral right gait. Physical exam again reveals palpable DP and palpable PT pulses bilateral warm pink skin 1+ ankle and lower leg edema on the right improved over previous visit since compression has been applied. No overt evidence of venous stasis or lymphatic disease Musculoskeletal: Complete weakness of the anterior and anterior lateral motor groups of the right leg with inability to dorsiflex and slade the foot. Patient is able to invert and plantarflex with full power. Neurological: Abnormality of sensation along the L4-5 dermatome on the right leg and anterior foot with no comparison finding on the left side or other dermatological areas. The area of abnormality appears to be sharp demarcated to this dermatome. Impression: -Unilateral right leg swelling may possibly be the result of uncontrolled DM and dropfoot on the right Plan: -Consult physical medicine rehab for EMG nerve conduction studies right leg to evaluate for upper motor neuron versus local pathology -Consult outside prosthetics and bracing facility for polypropylene articulated dorsiflex assist in shoe AFO for right side. Follow-up: 3 months Return sooner if any fever chills nausea, vomiting increased redness, swelling,drianage, pain, or flu like symptoms, or go to nearest emergency room / urgent care for evaluation. -all sharpes cleared, processed and or disposed of according to SOP/MCP. -As part of the service the pertinent primary care, specialty care and urgent care notes have been reviewed as well as the patient's medication list, problem list, and current imaging as well as past imaging, laboratory data and other pertinent contributory consults. -All new and discontinued medications have been discussed in detail with the patient and or caregiver, including indications for additions and deletions, as well as possible side effects, interactions as foreseen, and risk of not taking as prescribed If applicable, the patient was advised clearly on application of wound care agents how to apply and when to apply. The patient was able to recitethis information back to the prescriber with good understanding and agreed to the plan of care as indicated above. -Plan of care discuss with the patient and or caregiver, including medical decision making which includes discussion of abnormal lab results, imaging and other diagnostic modalities as well as results of the physical exam and data governance consultant opinions and recommendations as sought. Alternatives to surgery or outlined care above as appropriate have also been discussed. -The patient/ caregiver has displayed good understanding of above and with no further questions at this time. Patient is aware of next appointment and agrees to follow-up interval. Patient agrees to seek sooner follow up if any irregular events occur in between such as cardinal signs of infection, increased pain or deformity. -The on this visit was given information [employer] service and encouraged to enroll if not already having done so. /tha/ DIAZ NAVA DPM PODIATRY ATTENDING Signed: 10/03/2023 14:19 DIAZ NAVA [facility]
== END 2024-05-27 08:40 | disposition home or self-care (01) ==
LOC: HO.ACS 08:24
PROVIDERS: PCP Internal Medicine; Visit Provider Internal Medicine
DX: Z79.01 Long term (current) use of anticoagulants (principal)

== ENCOUNTER → 2024-05-27 08:24 | Outpatient (BNVA) | payer MEDICARE, SELFPAY | PROVIDERS: PCP Internal Medicine; Visit Provider Internal Medicine | DX: I48.20 Chronic atrial fibrillation, unspecified (principal); Z79.01 Long term (current) use of anticoagulants; Z51.81 Encounter for therapeutic drug level monitoring | CPT/HCPCS: 85610; 99211 ==

== ENCOUNTER 2024-07-01 08:28 | Outpatient (AMB) | payer MEDICARE, SELFPAY ==
--- NOTE | 2024-07-01 08:44 | MHC.OFFVISCO ---
Intake Intake Visit Reasons: Anticoagulation Allergies doxycycline [Doxycycline] Allergy (Severe, Verified 07/01/24 08:29) HIVES lisinopril Allergy (Severe, Verified 07/01/24 08:29) RASH Medication List - Last Reconciled 07/01/24 by Josefa Paredes RN doxepin 3 mg PO BEDTIME PRN fluticasone propionate 50 mcg/actuation (Flonase Allergy Relief) 1 spray intranasal DAILY furosemide 20 mg PO DAILY 90 days levothyroxine 75 mcg PO QAM metoprolol succinate ER 25 mg PO DAILY simvastatin 20 mg PO BEDTIME warfarin (Juntoven) See Protocol 7.5 mg QD orally QD; 90 days warfarin (Juntoven) See Protocol 10 mg X 6-7 DAYS/ WEEK WARFARIN DOSE PER INR Nursing Note INR: 2.3 in therapeutic range Medications and supplements reviewed No changes in health, diet, medications, or supplements, Denies any signs and symptoms of bleeding or bruising or clotting. Bleeding, bruising, clotting discussed Nutritional guidance given Dose: 7.5MG X 1 DAY/ 10MG X 6 DAYS F/U INR: 1 MONTH Patient verbalizes understanding of instructions given WITH READ BACK Anti-Coag Initial Assessment Social Hx Patient Tobacco Use Status: Never used Tobacco alcohol intake: current Alcohol intake frequency: holidays/special occasions only Questionnaires HAS-BLED Does the patient had uncontrolled Hypertension?: No Does the patient have renal disease?: No Does the patient have liver disease?: No Does the patient have a history of stroke?: No Has the patient had major bleeding or predisposition to bleeding?: No Does the patient have labile INRs?: No Is the patient over 65 years of age?: Yes Is the patient on medications that gives them a predisposition to bleeding?: Yes Does the patient use alcohol?: Yes HAS-BLED Score: 3 CHADSVASC Age: 75 or over Gender: Male Does the patient have a history of CHF?: No Does the patient have a history of Hypertension?: Yes Does the patient have a history of Stroke/TIA/Thromboembolism?: No Does the patient have a history of Vascular Disease (prior FL, PAD or aortic plaque)?: Yes Does the patient have a history of Diabetes?: No CHADS VACS Score: 4 Valentina Prediction Score Rsk VTE Active Cancer: No Previous VTE, excluding superficial vein thrombosis: No Reduced mobility: No 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 ) With-in last month Trauma and/or Surgery: No Elderly 70 year or older: Yes Heart and/or Respiratory Failure: No Acute Myocardial infarction and/or Ischemic Stroke: No Acute Infection and/or Rheumatologic Disorder: No Obesity (BMI 30 or greater): No Ongoing Hormonal Treatment: No Score: 4 Valentina Score less than 4; Low Risk of VTE Valentina Score 4 or greater; High Risk of VTE Coding Level of Care Code Est Patient Level 1 Diagnoses Current use of anticoagulant therapy Z79.01 Results AMB INR Fingerstick AMB INR Fingerstick 2.3 Last Edit by Josefa Paredes RN on 07/01/24 08:40 MANUAL ENTRY Assessment & Plan Assessment & Plan (1) Current use of anticoagulant therapy: Code(s): Z79.01 - buttermaker (current) use of anticoagulants Category: Medical
[2024-07-01 09:25] LABS: Prothrombin Time Whole Bld POC 27.3 sec (11.1-13.5); ~PT, ~INR - Anti Coag Clinic 2.3 (0.9-1.1)
== END 2024-07-01 08:51 | disposition home or self-care (01) ==
LOC: HO.ACS 08:28
PROVIDERS: PCP Internal Medicine; Visit Provider Internal Medicine
DX: Z79.01 Long term (current) use of anticoagulants (principal)

== ENCOUNTER → 2024-07-01 08:28 | Outpatient (BNVA) | payer MEDICARE, SELFPAY | PROVIDERS: PCP Internal Medicine; Visit Provider Internal Medicine | DX: I48.20 Chronic atrial fibrillation, unspecified (principal); Z79.01 Long term (current) use of anticoagulants; Z51.81 Encounter for therapeutic drug level monitoring | CPT/HCPCS: 85610; 99211 ==

== ENCOUNTER 2024-08-05 08:26 | Outpatient (AMB) | payer MEDICARE, SELFPAY ==
--- NOTE | 2024-08-05 08:39 | MHC.OFFVISCO ---
Intake Intake Visit Reasons: Anticoagulation Allergies doxycycline [Doxycycline] Allergy (Severe, Verified 08/05/24 08:33) HIVES lisinopril Allergy (Severe, Verified 08/05/24 08:33) RASH Medication List - Last Reconciled 08/05/24 by Roxanne Rodriguez, RN doxepin 3 mg PO BEDTIME PRN fluticasone propionate 50 mcg/actuation (Flonase Allergy Relief) 1 spray intranasal DAILY furosemide 20 mg PO DAILY 90 days levothyroxine 75 mcg PO QAM metoprolol succinate ER 25 mg PO DAILY simvastatin 20 mg PO BEDTIME warfarin (Juntoven) See Protocol 7.5 mg QD orally QD; 90 days warfarin (Juntoven) See Protocol 10 mg X 6-7 DAYS/ WEEK WARFARIN DOSE PER INR Nursing Note INR: 2.3 in therapeutic range of 2-3 Medications and supplements reviewed No changes in health, diet, medications, or supplements, Denies any signs and symptoms of bleeding or bruising or clotting. Bleeding, bruising, clotting discussed Nutritional guidance given Dose: 10mg X 6 days and 7.5mg X 1 day F/U INR: 5 weeks Patient verbalizes understanding of instructions given Anti-Coag Initial Assessment Social Hx Patient Tobacco Use Status: Never used Tobacco alcohol intake: current Alcohol intake frequency: holidays/special occasions only Coding Level of Care Code Est Patient Level 1 Diagnoses Current use of anticoagulant therapy Z79.01 Results AMB INR Fingerstick AMB INR Fingerstick 2.3 Last Edit by Roxanne Rodriguez, RN on 08/05/24 08:39 interface delay Assessment & Plan Assessment & Plan (1) Current use of anticoagulant therapy: Code(s): Z79.01 - manager intermediate (current) use of anticoagulants Category: Medical
--- OUTSIDE RECORDS SUMMARY | 2024-08-05 08:45 | XMS_ITS | Encounter Summary ---
Author Name [facility] [place] [facility] [place] [facility] [place] Address [address] [place] [address] Care Team Providers Care Wood Gluer Name Role Phone TERRY YEPEZ Primary Care [...] Relationship to Policy Celeste RUSS [place] MEDIGAP PLAN C PSUED O MEDEX BRONZ E October 17, 2003 [id number] OCTAVIA,DAKOTA CHARD PATIENT BCBS [place] MEDICARE SUPPLEMEN RYAN MEDEX BRONZ E October 17, 2003 [id number] OCTAVIA,RI CHARD PATIENT [place]BS [place] MED[place]ARE SUPPLEMEN RYAN MEDEX BRONZ E October 17, 2003 [id number] [phone] DAKOTA DUDLEY CHARRonald PATIENT BCBS [facility] [place] MEDICARE SUPPLEMEN RYAN PSUED O MEDEX BRONZ E October 17, 2003 [id number] OCTAVIA,DAKOTA CHARRonald PATIENT MEDICARE (WNR) MEDICARE (M) PART A October 17, 2003 PART A [id number] DAKOTA DUDLEY PATIENT MEDICARE (WNR) MEDICARE (M) PART B October 17, 2003 PART B [id number] DAKOTA DUDLEY PATIENT MEDICARE (WNR) MEDICARE (M) PART A October 17, 2003 PART A [id number] DAKOTA DUDLEY PATIENT MEDICARE (WNR) MEDICARE (M) PART B October 17, 2003 PART B [id number] DAKOTA DUDLEY PATIENT MEDICARE (WNR) MEDICARE (M) PART A October 17, 2003 PART A [id number] DAKOTA DUDLEY PATIENT MEDICARE (WNR) MEDICARE (M) PART B October 17, 2003 PART B [id number] DAKOTA DUDLEY PATIENT Selected Encounter This section includes the information on record at [place] for the Encounter. Date/Time Encounter Type Encounter Description Reason Provider Source Jul 14, 2024 01:00 PM OFFICE O/P EST SF 10 MIN VASCULAR SURGERY ICD-10-CM I89.0 Lymphedema, not elsewhere classified GYPSY FAJARDO MD [facility] Encounter Template Text not used by [place] Assessments - Encounter Diagnoses This section includes the primary and secondary diagnoses documented for the Encounter. Date/Time Primary/Secondary Diagnosis Diagnosis Name Provider Source Jul 18, 2024 12:25 PM PRIMARY Lymphedema, not elsewhere classified NETTIE VELIZ [facility] Plan of Treatment: Future Appointments (+ 6 months) and Future Tests (+/- 45 days) The Plan of Treatment section includes future care activities for the patient from all [place] treatmentfacilities. This section includes future appointments and future orders which are active, pending or scheduled. Future Appointments This section includes appointments that were scheduled to occur 6 months from the date of the Encounter, up to a maximum of 20 appointments. The data comes from all [place] treatment facilities. Appointment Date/Time Appointment Type Appointme nt Facility Name Jul 21, 2024 02:30 PM [facility] Jul 28, 2024 01:00 PM [facility] [facility] Vital Signs: All taken on the encounter date This section contains inpatient and outpatient Vital Signs collected on the date of the Encounter. Date/Time Temperature Pulse Blood Pressure Respiratory Rate SP02 Pain Height Weight Body Mass Index Source Jul 14, 2024 12:40 PM 96.1 67 164/88 18 98 0 72 229 31 [facility] Encounter Notes: All associated encounter notes This section contains the clinical notes associated to the Encounter. Date/Time Encounter Note(s) Provider Source Jul 14, 2024 01:32 PM VASCULAR SURGERY N OTE: LOCAL TITLE: VASCULAR SURGERY STANDARD TITLE: VASCULAR SURGERY NOTE DATE OF NOTE: JUL 14, 2024@13:32 ENTRY DATE: JUL 14, 2024@13:32:51 AUTHOR: MARION MOMIN COSIGNER: URGENCY: STATUS: COMPLETED HPI: 83 yom presenting for follow up of marked edema RLE, after wearing compression socks. He states that he notices that his right foot has some more swelling, but his calves have improved. No new symptoms of non-healing wounds. Still ambulatory, no pain. 07/14/2024 13:33 CONFIDENTIAL SURGICAL PROC BRIEF SUMMARY pg. 1 OCTAVIAILAN [id number] : 1940 MEDS: OUTPT MEDICATIONS: NONE No Active Remote Medications for this patient ALLERGIES: FACILITY ALLERGY/ADR -------- 631^[facility]^631 AMOXICILLIN 631^[facility]^631 CALCIUM 631^[facility]^631 MINOCYCLINE No Allergy Assessment ROS (negative except as noted above) PHYSICAL EXAMINATION GEN: VITALS: 164/88 (07/14/2024 12:40) 67 (07/14/2024 12:40) 98% (07/14/2024 12:40) 18 (07/14/2024 12:40) 96.1 F [35.6 C] (07/14/2024 12:40) Palpable pulses: Laterality: Bilateral [X]PT and [X]DP. SVS - Vital Signs Selected (max 1 occurrence or 1 year) Measurement DT WEIGHT LB(KG)[BMI] 07/14/2024 12:40 229(103.87) [31*] BMI: 31.1 General: NAD, pleasant Neuro: A&Ox4 Pulm: breathing comfortably on room air. Ext: some swelling in Right foot, no open wounds, motor 5/5 ======== A/P 83 yom following up after onset RLE lymphedema. Continue circaid wraps (seen by Juan in Prosthetics); also, can continue Koya. compression pumps as tolerate. No need for follow up in vascular surgery. Duplex studies from 1 year ago, within normal limits. Defer to primary care physician for follow up of compression stockings. /tha/ Marion Momin DO Surgery Aide Signed: 07/14/2024 13:40 MARION MOMIN [facility]
--- OUTSIDE RECORDS SUMMARY | 2024-08-05 08:45 | XMS_ITS | Encounter Summary ---
Author Name [facility] [place] Organization [place] Address [address] [place] [address] Care Team Providers Care Peoplesoft Consultant Name Role Phone TERRY YEPEZ Primary Care [...] Relationship to Policy Celeste RUSS BCBS OF [place] MEDIGAP PLAN C PSUED O MEDEX BRONZ E October 17, 2003 [id number] [phone] DAKOTA DUDLEY CHARD PATIENT [place] MED[place] SUPPLEMEN RYAN MEDEX BRONZ E October 17, 2003 [id number] OCTAVIA,RI CHARD PATIENT BCBS [place] MEDICARE SUPPLEMEN RYAN MEDEX BRONZ E October 17, 2003 [id number] [phone] DAKOTA DUDLEY CHARD PATIENT BCBS [facility] MEDICARE SUPPLEMEN RYAN PSUED O MEDEX BRONZ E October 17, 2003 [id number] DAKOTA DUDLEY CHARRonald PATIENT MEDICARE (WNR) MEDICARE (M) PART A October 17, 2003 PART A [id number] DAKOTA DUDLEY PATIENT MEDICARE (WNR) MEDICARE (M) PART B October 17, 2003 PART B [id number] DAKOTA DUDLEY PATIENT MEDICARE (WNR) MEDICARE (M) PART A October 17, 2003 PART A [id number] DAKOTA DUDLEY PATIENT MEDICARE (WNR) MEDICARE (M) PART B October 17, 2003 PART B [id number] DAKOTA DUDLEY PATIENT MEDICARE (WNR) MEDICARE (M) PART A October 17, 2003 PART A [id number] DAKOTA DUDLEY PATIENT MEDICARE (WNR) MEDICARE (M) PART B October 17, 2003 PART B [id number] DAKOTA DUDLEY PATIENT Selected Encounter This section includes the information on record at [place] for the Encounter. Date/Time Encounter Type Encounter Description Reason Provider Source Jul 14, 2024 01:30 PM ORTHOTIC MGMT&TRAING 1ST ENC PROSTHETICS/ORTHO TICS ICD-10-CM I87.2 Venous insufficiency (chronic) (peripheral) EMILY SHAHID Philip Encounter Template Text not used by [place] Assessments - Encounter Diagnoses This section includes the primary and secondary diagnoses documented for the Encounter. Date/Time Primary/Secondary Diagnosis Diagnosis Name Provider Source Jul 15, 2024 04:29 PM PRIMARY Venous insufficiency (chronic) (peripheral) EMILY SHAHID [facility] Plan of Treatment: Future Appointments (+ 6 months) and Future Tests (+/- 45 days) The Plan of Treatment section includes future care activities for the patient from all [place] treatmentfacilities. This section includes future appointments and future orders which are active, pending or scheduled. Future Appointments This section includes appointments that were scheduled to occur 6 months from the date of the Encounter, up to a maximum of 20 appointments. The data comes from all [place] treatment facilities. Appointment Date/Time Appointment Type Appointme nt Facility Name Jul 21, 2024 02:30 PM AMBULATORY [facility] [place] [facility] Jul 28, 2024 01:00 PM [facility] [place] [facility] Vital Signs: All taken on the encounter date This section contains inpatient and outpatient Vital Signs collected on the date of the Encounter. Date/Time Temperature Pulse Blood Pressure Respiratory Rate SP02 Pain Height Weight Body Mass Index Source Jul 14, 2024 12:40 PM 96.1 67 164/88 18 98 0 72 229 31 [facility] Encounter Notes: All associated encounter notes This section contains the clinical notes associated to the Encounter. Date/Time Encounter Note(s) Provider Source Jul 15, 2024 04:19 PM ORTHOTICS PROSTHET ICS CONSULT: LOCAL TITLE: CONSULT /ORTHOTICS PROSTHETICS STANDARD TITLE: ORTHOTICS PROSTHETICS CONSULT DATE OF NOTE: JUL 15, 2024@16:19 ENTRY DATE: JUL 15, 2024@16:19:47 AUTHOR: EMILY SHAHIDIGNER: URGENCY: STATUS: COMPLETED First prescription: Clinical consult number: [id number] Service(s) provided: Initial evaluation Measure/Cast/Scan Item delivered - Prefabrication Time spent: Minutes: 30 Prosthetic Progress Note ILAN DUDLEY Appointment Date: 07/14/24 13:30 Evaluation Patient evaluated for prescribed device. Diagnosis I87.2 Venous Insufficiency Prescribed Item(s) Circaids Patient was measured and/or cast. Pt measures size medium. PT has old circaid on right limb and zipper compression on the left. PT wearing thick winter socks under compression which is impeding function of the compression. Discussed with PT best use of compression. Zipper compression on left too worn to determine exact compression. Prescribed item will be ordered/fabricated as per consult request. 15-20 medium zipper compression Item(s) will be mailed to Patient when ready. Delivery Delivery of device was acceptable. Delivered Item: Medium circaids, pack of under socks Patient was able to don independently and/or has access to the needed assistance to use the device properly. Pt has access to assistance as needed. PT tried with and without metal donning aide and PT elected to not use metal aide. Patient has been provided with instruction on the use, care, and cleaning of the device. Fit and function of the device meets the patient's needs. Pt fit with replacement circaid on right. No issues with fit. Demonstrated proper donning without adding additional socks under the wraps. Pt reported comfortable. The device have been inspected and/or serviced to ensure no defects. All parts cleaned, assembled and secured ([place] or equivalent) as required. Follow up with patient PRN. /tha/ EMILY SHAHID Architect Internship Signed: 07/15/2024 16:29 Receipt Acknowledged By: 07/21/2024 12:52 /hta/ MIN PARKER CPO [employer] EMILY SHAHID [facility]
--- OUTSIDE RECORDS SUMMARY | 2024-08-05 08:45 | XMS_ITS ---
Author Name [facility] [place] Address [address] [place] [address] Care Team Providers Care Academic Services Coordinator Name Role Phone TERRY YEPEZ Primary Care [...] O MEDEX BRONZ E October 17, 2003 [id number] [phone] OCTAVIA,DAKOTA CHARD PATIENT [place]BS [place] MEDICARE SUPPLEMEN YRAN MEDEX BRONZ E October 17, 2003 [id number] OCTAVIA,DAKOTA CHARD PATIENT [place]BS [place] MEDICARE SUPPLEMEN RYAN MEDEX BRONZ E October 17, 2003 [id number] [phone] DAKOTA DUDLEY CHARD PATIENT BCBS OF [facility] MEDICARE SUPPLEMEN RYAN PSUED O MEDEX BRONZ E October 17, 2003 [id number] [phone] OCTAVIA,RI CHARD PATIENT MEDICARE (WNR) MEDICARE (M) PART A October 17, 2003 PART A [id number] DAKOTA DUDLEY PATIENT MEDICARE (WNR) MEDICARE (M) PART B October 17, 2003 PART B [id number] DAKOTA DUDLEY PATIENT MEDICARE (WNR) MEDICARE (M) PART A October 17, 2003 PART A [id number] [phone] DAKOTA DUDLEY PATIENT MEDICARE (WNR) MEDICARE (M) PART B October 17, 2003 PART B [id number] [phone] DAKOTA DUDLEY PATIENT MEDICARE (WNR) MEDICARE (M) PART A October 17, 2003 PART A [id number] DAKOTA DUDLEY PATIENT MEDICARE (WNR) MEDICARE (M) PART B October 17, 2003 PART B [id number] DAKOTA DUDLEY PATIENT Selected Encounter This section includes the information on record at [place] for the Encounter. Date/Time Encounter Type Encounter Description Reason Provider Source Jul 21, 2024 02:30 PM OFFICE O/P EST LOW 20 MIN PODIATRY ICD-10-CM M21.371 Foot drop, right foot TIMUR NAVA [facility] Encounter Template Text not used by [place] Assessments - Encounter Diagnoses This section includes the primary and secondary diagnoses documented for the Encounter. Date/Time Primary/Secondary Diagnosis Diagnosis Name Provider Source Jul 21, 2024 02:53 PM PRIMARY Foot drop, right foot TIMUR NAVA [facility] Jul 21, 2024 02:53 PM SECONDARY Generalized edema TIMUR NAVA [facility] Plan of Treatment: Future Appointments (+ [...] Appointment Type Appointme nt Facility Name Jul 28, 2024 01:00 PM [facility] [place] [facility] Vital Signs: All taken on the encounter date This section contains inpatient and outpatient Vital Signs collected on the date of the Encounter. Date/Time Temperature Pulse Blood Pressure Respiratory Rate SP02 Pain Height Weight Body Mass Index Source Jul 21, 2024 02:27 PM 98.4 0 [facility] [place] [facility] Social History: Smoking Status (Most current) [...] 18, 2024 08:30 AM VA-TOBACCO NEVER USED [place] [facility] [place] [facility] Tobacco Use History This section includes a history of the smoking, or tobacco-related health factors, that were collected on or before the date of the Encounter. The data comes from the [place] facility where the Encounter took place. Date/Time Smoking Status/Tobacco Use Comment F acility Apr 16, 2023 09:30 AM VA-TOBACCO NEVER USED [facility] [place] [facility] May 09, 2022 09:00 AM VA-TOBACCO NEVER USED [facility] [place] [facility] May 10, 2021 08:00 AM VA-TOBACCO NEVER USED [facility] [place] [facility] May 17, 2020 03:00 PM VA-TOBACCO NEVER USED [facility] [place] [facility] Apr 15, 2018 09:31 AM VA-TOBACCO NEVER USED [facility] [place] [facility] Apr 17, 2017 08:56 AM LIFETIME NON-TOBACCO USER [facility] [place] [facility] Apr 13, 2016 08:54 AM LIFETIME NON-TOBACCO USER [facility] [place] [facility] Apr 20, 2010 08:59 AM FORMER SMOKER - <1 00 LIFETIME CIGARETTES [facility] [place] [facility] Aug 12, 2004 09:12 AM HISTORY OF SMOKING [facility] [place] [facility] May 29, 2003 01:11 PM HISTORY OF SMOKING [facility] [place] [facility] May 29, 2003 01:11 PM QUIT TOBACCO USE > 7 YEARS AGO [place] [facility] Encounter Notes: All associated encounter notes This section contains the clinical notes associated to the Encounter. Date/Time Encounter Note(s) Provider Source Jul 21, 2024 02:45 PM PODIATRY NOTE: LOCAL TITLE: PODIATRY NOTE STANDARD TITLE: PODIATRY NOTE DATE OF NOTE: JUL 21, 2024@14:45 ENTRY DATE: JUL 21, 2024@14:45:36 AUTHOR: TIMUR NAVA EXP COSIGNER: URGENCY: STATUS: COMPLETED Podiatry [facility] Follow up Provider: Timur Nava Date: JUL 21, 2024 ILAN DUDLEY [address] [place] [id number] October 85 MALE [phone] PATIENT PHONE - Primary Care: TERRY YEPEZ Follow up Visit Concern: Dropfoot, unilateral leg swelling on the right. Patient was seen in [place] had a CT scan done to rule out pelvic mass which was negative, fitted with CircAid compression stockings, and here was noted to have dropfoot L4-5 and fitted with brace, not articulated. Subjective: When I was done at [place] they told me everything is stable and I do not need to come back. While I was there I developed a rub on my anterior davila from the brace. It is healing now but is a scab. 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, On 04/18/2024 TERRY YEPEZ Exposure to potentially hazardous s 08/02/2023 ERNESTO [...] Non-VA LEVOTHYROXINE NA (SYNTHROID) 50MCG TAB 0.05MG BY ACTIVE MOUTH EVERY DAY 3) Non-VA LISINOPRIL 20MG TAB 20MG BY MOUTH EVERY DAY ACTIVE 4) Non-VA METOPROLOL SUCCINATE TAB,SA 12.5MG BY MOUTH EVERY DAY ACTIVE 5) Non-VA MULTIVITAMIN/MINERALS CAP/TAB 1 TABLET BY MOUTH ACTIVE 6) Non-VA SIMVASTATIN 40MG TAB 20MG BY MOUTH AT BEDTIME ACTIVE Indication: FOR HIGH CHOLESTEROL 7) Non-VA ZZWARFARIN NA (MOORE STATE) 10MG TAB DIRECTED BY ACTIVE MOUTH WITH DIRECTIONS PROVIDED FROM THE COUMADIN CLINIC Allergies: Data on this list may not be complete. Please check JL. FACILITY ALLERGY/ADR -------- No Remote Allergy/ADR Data available for this patient [facility] [place] [facility] [place] [facility] [place] [facility] MINOCYCLINE PE: Well-appearing, ambulatory with dropfoot gait, [not wearing brace presently]. Again noted 1-1+ foot edema 1-2+ ankle edema nonpitting No characteristics of venous stasis or lymphatic disease. Decreased sensation L4-5 distribution Polio scale dorsiflexors everters 3 out of 5 right All remaining motor groups 5/5. No plantar lesions or calluses No foot irritation from brace Impression: -Unilateral dropfoot right -Peripheral edema Unilateral -All the above controlled with bracing and compression stocking with CircAid. Plan: -Patient to bring brace back for inspection may need padding around tibial tuberosity area -Formal follow-up in clinic in 6 months. Return sooner if any fever chills nausea, vomiting increased redness, swelling, drianage, pain, or flu like symptoms, or go [...] as results of the physical exam and technical healthcare consultant opinions and recommendations as sought. Alternatives [...] -The on this visit was given information iPositioning service and encouraged to enroll if not already having done so. /tha/ TIMUR NAVA DPM PODIATRY ATTENDING Signed: 07/21/2024 14:53 TIMUR NAVA [facility]
--- OUTSIDE RECORDS SUMMARY | 2024-08-05 08:45 | XMS_ITS | Encounter Summary ---
Author Name [place] Address [address] [place] [id number] Care Team Providers Care Chick Room Supervisor Name Role Phone TERRY YEPEZ Primary Care [...] Relationship to Policy Celeste RUSS [place] MEDIGAP PLAN C PSUED O MEDEX BRONZ E October 17, 2003 [id number] DAKOTA DUDLEY CHARD PATIENT [place] SUPPLEMEN RYAN MEDEX BRONZ E October 17, 2003 [id number] DAKOTA DUDLEY CHARD PAT[place] R[place]AN MEDEX BRONZ E October 17, 2003 [id number] [phone] DAKOTA DUDLEY CHARRonald PATIENT BCBS [facility] MEDICARE SUPPLEMEN RYAN PSUED O MEDEX BRONZ E October 17, 2003 [id number] DAKOTA DUDLEY CHARRonald PATIENT MEDICARE (WNR) MEDICARE (M) PART A October 17, 2003 PART A [id number] DAKOTA DUDLEY PATIENT MEDICARE (WNR) MEDICARE (M) PART B October 17, 2003 PART B [id number] DAKOTA DUDLEY PATIENT MEDICARE (WNR) MEDICARE (M) PART A October 17, 2003 PART A [id number] DAKOTA DUDLEY PATIENT MEDICARE (WNR) MEDICARE (M) PART B October 17, 2003 PART B [id number] DAKOTA DUDLEY PATIENT MEDICARE (WNR) MEDICARE (M) PART B October 17, 2003 PART B [id number] [phone] DAKOTA DUDLEY PATIENT MEDICARE (WNR) MEDICARE (M) PART A October 17, 2003 PART A [id number] DAKOTA DUDLEY PATIENT Selected Encounter This section includes the information on record at [place] for the Encounter. Date/Time Encounter Type Encounter Description Reason Pro vider Source Jul 17, 2024 10:05 AM Outpatient Encounter PODIATRY IHE Encounter Template Text not used by [place] Plan of Treatment: Future Appointments (+ 6 months) and Future Tests (+/- 45 days) The Plan of Treatment section includes future care activities for the patient from all [place] treatmentfacilities. This section includes future appointments and future orders which are active, pending or scheduled. Future Appointments This section includes appointments that were scheduled to occur 6 months from the date of the Encounter, up to a maximum of 20 appointments. The data comes from all [place] treatment facilities. Appointment Date/Time Appointment Type Appointme nt Facility Name Jul 21, 2024 02:30 PM AMBULATORY - MEDICINE [facility] [place] Jul 28, 2024 01:00 PM AMBULATORY - MEDICINE [facility] [place] Social History: Smoking Status (Most current) and Tobacco Use (All prior to encounter date) This section includes the most current, and the historical, smoking and tobacco- related health factors from the [facility] facility where the Encounter took place. Current Smoking Status This section includes the most current smoking, or tobacco-related health factor, from the [place] facility where the Encounter took place. Date/Time Current Smoking Status Comment Facil ity Apr 18, 2024 08:30 AM [facility] Tobacco Use History This section includes a history of the smoking, or tobacco-related health factors, that were collected on or before the date of the Encounter. The data comes from the [place] facility where the Encounter took place. Date/Time Smoking Status/Tobacco Use Comment Gaston acdino Apr 16, 2023 09:30 AM VA-TOBACCO NEVER USED [facility] [place] [facility] May 09, 2022 09:00 AM VA-TOBACCO NEVER USED [facility] [place] [facility] May 10, 2021 08:00 AM VA-TOBACCO NEVER USED [facility] [place] [facility] May 17, 2020 03:00 PM VA-TOBACCO NEVER USED [facility] [place] [facility] Apr 15, 2018 09:31 AM VA-TOBACCO NEVER USED [facility] [place] [facility] Apr 17, 2017 08:56 AM LIFETIME NON-TOBACCO USER [facility] [place] [facility] Apr 13, 2016 08:54 AM LIFETIME NON-TOBACCO USER [facility] [place] [facility] Apr 20, 2010 08:59 AM FORMER SMOKER - <1 00 LIFETIME CIGARETTES [place] [facility] [place] [facility] Aug 12, 2004 09:12 AM HISTORY OF SMOKING [facility] [place] [facility] May 29, 2003 01:11 PM HISTORY OF SMOKING [facility] [place] [facility] May 29, 2003 01:11 PM QUIT TOBACCO USE > [facility] [place] [facility] Encounter Notes: All associated encounter notes This section contains the clinical notes associated to the Encounter. Date/Time Encounter Note(s) Provider Source Jul 17, 2024 12:39 PM ADDENDUM: LOCAL TITLE: Addendum STANDARD TITLE: ADDENDUM DATE OF NOTE: JUL 17, 2024@12:39:46 ENTRY DATE: JUL 17, 2024@12:39:47 AUTHOR: TIMUR NAVA COSIGNER: URGENCY: STATUS: COMPLETED offer [facility] wound clinic ([facility] pod wnd-1) vikki. /tha/ TIMUR NAVA DPM PODIATRY ATTENDING Signed: 07/17/2024 12:40 Receipt Acknowledged By: 07/17/2024 13:46 /tha/ ANA BARFIELD ADVANCED PRIMARY CARE SALES REPRESENTATIVE 07/17/2024 15:22 /tha/ GIANNA DE LA CRUZ Podiatry Health [employer] Plant Operator 07/17/2024 15:47 /tha/ CATHRYN BOTELLO LPN LICENSED PRACTICAL NURSE ====== --- Original Document --- 07/17/24 TELEPHONE NOTE/SPECIALTY CLINIC: vet left on sc line stating he had his vascular appt in [place] and needs a follow up appt with Dr Nava- spoke to vet and offered next available which is 10/14/2024 and he declined and states that Dr Nava would like to see him sooner. forwarding to OPT STAFF to advise. /tha/ ANA BARFIELD ADVANCED PRIMARY CARE SALES REPRESENTATIVE Signed: 07/17/2024 10:07 Receipt Acknowledged By: 07/17/2024 12:39 /tha/ TIMUR NAVA DPM PODIATRY ATTENDING 07/17/2024 13:00 /tha/ GIANNA DE LA CRUZ Podiatry Health [employer] Plant Operator 07/17/2024 ADDENDUM STATUS: COMPLETED Call placed to to schedule appt with Dr. Nava, no answer, voice message left to return call to ext. [phone]. /tha/ CATHRYN BOTELLO LPN LICENSED PRACTICAL NURSE Signed: 07/17/2024 12:53 07/17/2024 ADDENDUM STATUS: COMPLETED RTC entered, voicemail message left. /tha/ GIANNA DE LA CRUZ Podiatry Health [employer] Plant Operator Signed: 07/17/2024 13:00 TIMUR NAVA [facility] [place] [facility] Jul 17, 2024 10:05 AM TELEPHONE ENCOUNTE R NOTE: LOCAL TITLE: TELEPHONE NOTE/SPECIALTY CLINIC STANDARD TITLE: TELEPHONE ENCOUNTER NOTE DATE OF NOTE: JUL 17, 2024@10:05 ENTRY DATE: JUL 17, 2024@10:05:56 AUTHOR: ANA BARFIELD EXP COSIGNER: URGENCY: STATUS: COMPLETED TELEPHONE NOTE/SPECIALTY CLINIC Has ADDENDA vet left vm on sc line stating he had his vascular appt in [place] and needs a follow up appt with Dr Nava- spoke to vet and offered next available which is 10/14/2024 and he declined and states that Dr Nava would like to see him sooner. forwarding to OPT STAFF to advise. /tha/ ANA BARFIELD ADVANCED PRIMARY CARE SALES REPRESENTATIVE Signed: 07/17/2024 10:07 Receipt Acknowledged By: 07/17/2024 12:39 /tha/ TIMUR NAVA DPM PODIATRY ATTENDING 07/17/2024 13:00 /tha/ GIANNA DE LA CRUZ Podiatry Health [employer] Plant Operator 07/17/2024 ADDENDUM STATUS: COMPLETED offer next avialble wound clinic ([facility] pod wnd-1) vikki. /tha/ TIMUR NAVA DPM PODIATRY ATTENDING Signed: 07/17/2024 12:40 Receipt Acknowledged By: * AWAITING SIGNATURE * ANA BARFIELD * AWAITING SIGNATURE * GIANNA DE LA CRUZ * AWAITING SIGNATURE * CATHRYN BOTELLO 07/17/2024 ADDENDUM STATUS: COMPLETED Call placed to to schedule appt with Dr. Nava, no answer, voice message left to return call to ext. [phone]. /tha/ CATHRYN BOTELLO LPN LICENSED PRACTICAL NURSE Signed: 07/17/2024 12:53 07/17/2024 ADDENDUM STATUS: COMPLETED RTC entered, voicemail message left. /tha/ GIANNA DE LA CRUZ Podiatry Health [employer] Plant Operator Signed: 07/17/2024 13:00 ANA BARFIELD [facility]
[2024-08-05 08:46] LABS: Prothrombin Time Whole Bld POC 27.2 sec (11.1-13.5); ~PT, ~INR - Anti Coag Clinic 2.3 (0.9-1.1)
--- OUTSIDE RECORDS SUMMARY | 2024-08-05 08:46 | XMS_ITS | Continuity of Care Document ---
Author Name 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 [facility]ibial [facility]. [facility] [place] [facility] Screening for Malignant Neoplasms of colon Inactive Condition 05/29/2003 May 29, 2003 Entered By: JOSH RODRIGUEZ Comment: colonscopy 02/18 one benign polyp, Mother had colon [facility] [place] [facility] Diagnosis: ICD-10-CM M21.371 Foot drop, right foot Active Diagnosis [facility] [place] [facility] Diagnosis: ICD-10-CM I87.2 Venous insufficiency (chronic) (peripheral) Active Diagnosis [facility] Diagnosis: ICD-10-CM I89.0 Lymphedema, not elsewhere classified Active Diagnosis [facility] Diagnosis: ICD-10-CM I10 Essential (primary) hypertension [facility] [place] [facility] Diagnosis: ICD-10-CM M20.40 Other hammer toe(s) (acquired), unspecified foot Active Diagnosis [facility] [place] [facility] Diagnosis: ICD-10-CM R60.0 Localized edema Active Diagnosis [facility] [place] [facility] Diagnosis: ICD-10-CM R60.9 Edema, unspecified [facility] [place] [facility] Diagnosis: ICD-10-CM Z23 Encounter for immunization Active Diagnosis [facility] [place] [facility] Medications Combined list of outpatient medications [...] EVERY DAY [facility]AL ACTIVE [facility]Z [facility] [place] [facility] LEVOTHYROXI NE NA 50MCG TAB (SYNTHROID) TAKE ONE TABLET BY MOUTH EVERY DAY ORAL ACTIVE NED YEPEZ 2011 [facility] [place] [facility] LISINOPRIL 20MG TAB TAKE ONE TABLET BY MOUTH EVERY DAY ORAL ACTIVE LUCHO,HOW FEILPA D 2011 [facility] [place] [facility] [facility] METOPROLOL SUCCINATE TAB,SA TAKE 12.5MG BY MOUTH EVERY DAY ORAL ACTIVE LUCHO,HOW FELIPA D [facility] [place] [facility] MULTIVITAMI NS W/MINERALS TAB TAKE ONE TABLET BY MOUTH ORAL ACTIVE EMILY RODRIGUEZ [facility] [place] [facility] SIMVASTATIN 40MG TAB TAKE ONE-HALF TABLET BY MOUTH AT BEDTIME ORAL ACTIVE LUCHO,HOW FELIPA D 2023 [facility] [place] [facility] WARFARIN NA (MOORE STATE) 10MG TAB TAKE DIRECTED BY MOUTH WITH DIRECTIO NS PROVIDED FROM THE [facility] ORAL ACTIVE LUCHO,HOW FELIPA D 2011 [facility] [place] [facility] Allergies, Adverse Reactions, Alerts Combined list of allergies from Department of Defense and Veterans Affairs facilities. It does not include entries that were removed or entered in error. Substance Category Reaction Severity Reaction type Status Date Reported Comments Source AMOXICILLIN Propensity to adverse reactions to drug (finding) Eruption active 3 [facility] [place] [facility] CALCIUM Propensity to adverse reactions to drug (finding) Eruption active 3 [facility] [place] [facility] MINOCYCLINE Propensity to adverse reactions to drug (finding) Eruption active 3 [facility] [place] [facility] Immunizations Combined list of available immunizations from the Department of Defense and Veterans Affairs facilities. 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 Administrator Status Comments Source COVID-19 (MODERNA), MRNA, LNP-S, PF, 50 MCG/0.5 ML (AGES 12+ YEARS) 2023 CASSI BONNER LEFT DELTO ID [id number] 312 [facility] INFLUENZA, HIGH-DOSE, TRIVALENT, PF 2023 CASSI BONNER RIGHT DELTO ID [id number] 135 complet ed [facility] [place] [facility] [facility] RSV, BIVALENT, PROTEIN SUBUNIT RSVPREF, DILUENT RECONSTITUTED , 0.5 ML, PF 2022 CASSI BONNER RIGHT DELTO ID [id number] 305 complet ed [facility] [place] [facility] [facility] COVID-19 (MODERNA), MRNA, LNP-S, PF, 50 MCG/0.5 ML (AGES 12+ YEARS) 4 2022 SHYLA HERNANDEZ M RIGHT DELTO ID [id number] 312 complet ed [facility] [place] [facility] [facility] INFLUENZA, HIGH-DOSE, QUADRIVALENT 2022 SHYLA HERNANDEZ ER M LEFT DELTO ID [id number] 197 complet ed [facility] [place] DOSE 2 2020 207 complet ed MOD; [id number]; 1 [facility] [place] [facility] COVID-19 (MODERNA), MRNA, LNP-S, PF, 100 MCG/0.5 ML DOSE 1 2020 207 complet ed MOD; [id number]; 1 [facility] [place] [facility] [facility] [...] Reference Range Date Interpretation Specimen Comments Source TSH THYROTROPI N [UNITS/VOL UME] IN SERUM OR PLASMA 5.83 u[IU]/mL 0.35 - 5.00 04/09 H Specimen Type: SERUM No comment entered. Ordering Provider: RONNIE YEPEZ Report Released Date/Time: Apr 05, 2024 04:09 PM Reporting Lab: [facility] [place] [facility] [address] [facility] [address] Performing Lab: [facility]ITALRPRATTVILLE BAPTIST HOSPITALTRN [facility]ITALUSEMATTEAW[facility] [address] [facility] [address] [facility]ERN [facility]USE [facility] LIPID PANEL FASTING CHOLESTERO L [MASS/VOLU ME] IN SERUM OR PLASMA 130 mg/dL 04/09 Specimen Type: SERUM No comment entered. Ordering Provider: RONNIE YEPEZ Report Released Date/Time: Apr 05, 2024 04:09 PM Reporting Lab: [facility]ITALRPRATTVIL[facility]ITALTRN [place] [facility] [address] [facility] [address] Performing Lab: [facility]PITALUSEMATTEAWAN [facility] [address] [facility] [address] [facility]ERN [facility]ITALUSE [facility] LIPID PANEL FASTING TRIGLYCERI DE [MASS/VOLU ME] IN SERUM OR PLASMA 92 mg/dL 0 - 150 04/09 Specimen Type: SERUM No comment entered. Ordering Provider: RONNIE YEPEZ Report Released Date/Time: Apr 05, 2024 04:09 PM Reporting Lab: [facility]N [place] [facility] [address] [facility] [address] Performing Lab: [facility] HOSPITALRL TRN [facility]OSPITALUSEMATTEAW[facility] [address] [facility] [address] [facility]ITALREAST [facility]ERN [facility] HOSPITALUSE [facility] LIPID PANEL FASTING CHOLESTERO L IN LDL [MASS/VOLU ME] IN SERUM OR PLASMA BY CALCULATIO N 67 mg/dL 0 - 129 04/09 Specimen Type: SERUM No comment entered. Ordering Provider: RONNIE YEPEZ Report Released Date/Time: Apr 05, 2024 04:09 PM Reporting Lab: [facility] [place] [facility] [address] [facility] [address] Performing Lab: [facility] [place] [facility] [address] [facility] [address] [facility] [place] [facility] LIPID PANEL FASTING CHOLESTERO L.TOTAL/CH OLESTEROL IN HDL [MASS RATIO] IN SERUM OR PLASMA 2.9 04/09 Specimen Type: SERUM No comment entered. Ordering Provider: RONNIE YEPEZ Report Released Date/Time: Apr 05, 2024 04:09 PM Reporting Lab: [facility] [place] [place] [facility] [address] [facility] [address] Performing Lab: [facility] [place] [facility] [address] [facility] [address] [facility]PITALRPRATTVILLE BAPTIST HOSPITALTRN [facility]OS[facility]ITALUSE [facility] LIPID PANEL FASTING CHOLESTERO L IN HDL [MASS/VOLU ME] IN SERUM OR PLASMA 45 mg/dL 40 - 60 04/09 Specimen Type: SERUM No comment entered. Ordering Provider: RONNIE YEPEZ Report Released Date/Time: Apr 05, 2024 04:09 PM Reporting Lab: [facility] [place] [place] [facility] [address] [facility] [address] Performing Lab: [facility] [place] [facility] [address] [facility] [address] [facility]OSPITALRL TRN [facility]OSPITALUSE [facility] URINALYS IS CLEAN CATCH COLOR OF URINE Colorles s 04/09 Specimen Type: URINE Comment: If Glucose = >500 and Ketones are positive, please alert the Physician. Ordering Provider: RONNIE YEPEZ Report Released Date/Time: Apr 05, 2024 04:09 PM Reporting Lab: [facility]RL [place] [facility] [address] [facility] [address] Performing Lab: [facility] [place] [facility] [address] [facility] [address] [facility]ITALRL TRN [place] [facility] URINALYS IS CLEAN CATCH APPEARANCE OF URINE Clear 04/09 Specimen Type: URINE Comment: If Glucose = >500 and Ketones are positive, please alert the Physician. Ordering Provider: RONNIE YEPEZ Report Released Date/Time: Apr 05, 2024 04:09 PM Reporting Lab: [facility] [place] [facility] [address] [facility] [address] Performing Lab: [facility] [place] [facility] [address] [facility] [address] [facility] [place] [facility] URINALYS IS CLEAN CATCH GLUCOSE [MASS/VOLU ME] IN URINE Normalmg /dL 04/09 Specimen Type: URINE Comment: If Glucose = >500 and Ketones are positive, please alert the Physician. Ordering Provider: RONNIE YEPEZ Report Released Date/Time: Apr 05, 2024 04:09 PM Reporting Lab: [facility] [place] [facility] [address] [facility] [address] Performing Lab: [facility] [place] [facility] [address] [facility] [address] [facility] [place] [facility] URINALYS IS CLEAN CATCH KETONES [MASS/VOLU ME] IN URINE BY TEST STRIP NEGATIVE mg/dL 04/09 Specimen Type: URINE Comment: If Glucose = >500 and Ketones are positive, please alert the Physician. Ordering Provider: RONNIE YEPEZ Report Released Date/Time: Apr 05, 2024 04:09 PM Reporting Lab: [facility] [place] [facility] [address] [facility] [address] Performing Lab: [facility] [place] [facility] [address] [facility] [address] [facility] [place] [facility] URINALYS IS CLEAN CATCH ERYTHROCYT ES [PRESENCE] IN URINE SEDIMENT BY LIGHT MICROSCOPY NEGATIVE mg/dL 04/09 Specimen Type: URINE Comment: If Glucose = >500 and Ketones are positive, please alert the Physician. Ordering Provider: RONNIE YEPEZ Report Released Date/Time: Apr 05, 2024 04:09 PM Reporting Lab: [facility] [place] [facility] [address] [facility] [address] Performing Lab: [facility] [place] [facility] [address] [facility] [address] [facility] [place] [facility] URINALYS IS CLEAN CATCH PROTEIN [MASS/VOLU ME] IN URINE BY TEST STRIP NEGATIVE mg/dL 04/09 Specimen Type: URINE Comment: If Glucose = >500 and Ketones are positive, please alert the Physician. Ordering Provider: RONNIE YEPEZ Report Released Date/Time: Apr 05, 2024 04:09 PM Reporting Lab: [facility] [place] [address] [address] Performing Lab: [facility]PITALRPRATTVILLE BAP[facility]IST [facility]OSPITALTRN [place] [address] [address] [facility]ITALRPRATTVILLE BAPTIST HOSPITALTRN [place] [facility] URINALYS IS CLEAN CATCH NITRITE [PRESENCE] IN URINE NEGATIVE mg/dL 04/09 Specimen Type: URINE Comment: If Glucose = >500 and Ketones are positive, please alert the Physician. Ordering Provider: RONNIE YEPEZ Report Released Date/Time: Apr 05, 2024 04:09 PM Reporting Lab: [facility] [place] [address] [address] Performing Lab: [facility] [place] [place] [address] [address] [facility]PITALREAST [facility]ENTERN [place] [facility] URINALYS IS CLEAN CATCH BILIRUBIN. TOTAL [PRESENCE] IN URINE NEGATIVE mg/dL 04/09 Specimen Type: URINE Comment: If Glucose = >500 and Ketones are positive, please alert the Physician. Ordering Provider: RONNIE YEPEZ Report Released Date/Time: Apr 05, 2024 04:09 PM Reporting Lab: [facility]ITALRPRATTVILLE B[facility] HOSPITALTRN [place] [address] [address] Performing Lab: [facility]ITALRPRATTVILLE BAP[facility]OSPITALTRN [place] [address] [address] [facility]ITALRPRATTVIL[facility]AP[facility]ITALTRN [place] [facility] URINALYS IS CLEAN CATCH SPECIFIC GRAVITY OF URINE BY REFRACTOME TRY 1.009 1.016 - 1.022 04/09 L Specimen Type: URINE Comment: If Glucose = >500 and Ketones are positive, please alert the Physician. Ordering Provider: RONNIE YEPEZ Report Released Date/Time: Apr 05, 2024 04:09 PM Reporting Lab: [facility] [place] [facility] [address] [facility] [address] Performing Lab: [facility] [place] [facility] [address] [facility] [address] [facility] [place] [facility] URINALYS IS CLEAN CATCH PH OF URINE BY TEST STRIP 6.5 5.0 - 9.0 04/09 Specimen Type: URINE Comment: If Glucose = >500 and Ketones are positive, please alert the Physician. Ordering Provider: RONNIE YEPEZ Report Released Date/Time: Apr 05, 2024 04:09 PM Reporting Lab: [facility] [place] [facility] [address] [facility] [address] Performing Lab: [facility] [place] [facility] [address] [facility] [address] [facility] [place] [facility] URINALYS IS CLEAN CATCH UROBILINOG EN [MASS/VOLU ME] IN URINE BY TEST STRIP Normalmg /dL <2.0 - 2.0 04/09 Specimen Type: URINE Comment: If Glucose = >500 and Ketones are positive, please alert the Physician. Ordering Provider: RONNIE YEPEZ Report Released Date/Time: Apr 05, 2024 04:09 PM Reporting Lab: [facility] [place] [facility] [address] [facility] [address] Performing Lab: [facility] [place] [facility] [address] [facility] [address] [facility] [place] [facility] URINALYS IS CLEAN CATCH LEUKOCYTE ESTERASE [PRESENCE] IN URINE BY TEST STRIP TRACE 04/09 Specimen Type: URINE Comment: If Glucose = >500 and Ketones are positive, please alert the Physician. Ordering Provider: RONNIE YEPEZ Report Released Date/Time: Apr 05, 2024 04:09 PM Reporting Lab: [facility] [place] [facility] [address] [facility] [address] Performing Lab: [facility] [place] [facility] [address] [facility] [address] [facility] [place] [facility] BASIC METABOLI C PANEL (fasting ) UREA NITROGEN [MASS/VOLU ME] IN SERUM OR PLASMA 22 mg/dL 7 - 25 04/09 Specimen Type: SERUM No comment entered. Ordering Provider: RONNIE YEPEZ Report Released Date/Time: Apr 05, 2024 04:09 PM Reporting Lab: [facility]ITALUS[facility] [address] [facility] [address] Performing Lab: [facility]ITALRL WSTRN [facility]OSPITALUSEMATTEAW[facility] [address] [facility] [address] [facility]STRN [facility]ITALUSE [facility] BASIC METABOLI C PANEL (fasting ) GLUCOSE [MASS/VOLU ME] IN SERUM OR PLASMA 104 mg/dL 65 - 100 04/09 H Specimen Type: SERUM No comment entered. Ordering Provider: RONNIE YEPEZ Report Released Date/Time: Apr 05, 2024 04:09 PM Reporting Lab: [facility]OSPITALRL TRN [facility]PITALUSE[address] [address] Performing Lab: [facility]ITALRL TRN [facility]ITALUSE[address] [address] [facility]ITALRPRATTVILLE BAPTIST HOSPITALTRN [facility]ITALUSE [facility] BASIC METABOLI C PANEL (fasting ) SODIUM [MOLES/VOL UME] IN SERUM OR PLASMA 138 mmol/L 135 - 145 04/09 Specimen Type: SERUM No comment entered. Ordering Provider: RONNIE YEPEZ Report Released Date/Time: Apr 05, 2024 04:09 PM Reporting Lab: [facility]ITALRL TRN [facility]PITALUSE[address] [address] Performing Lab: [facility]ITALUSE[address] [address] [facility]ITALRL TRN [facility]OSPITALUSE [facility] BASIC METABOLI C PANEL (fasting ) POTASSIUM [MOLES/VOL UME] IN SERUM OR PLASMA 4.5 mmol/L 3.5 - 5.0 04/09 Specimen Type: SERUM No comment entered. Ordering Provider: RONNIE YEPEZ Report Released Date/Time: Apr 05, 2024 04:09 PM Reporting Lab: [facility]ITALRL TRN [facility]ITALUSE[address] [address] Performing Lab: [facility]ITALRL TRN [facility]ITALUSE[address] [address] [facility]ITALRPRATTVILLE BAPTIST HOSPITALTRN [place] [facility] BASIC METABOLI C PANEL (fasting ) CHLORIDE [MOLES/VOL UME] IN SERUM OR PLASMA 104 mmol/L 100 - 110 04/09 Specimen Type: SERUM No comment entered. Ordering Provider: RONNIE YEPEZ Report Released Date/Time: Apr 05, 2024 04:09 PM Reporting Lab: [facility]OSPITALRPRATTVILLE BAPTIST HOSPITALTRN [facility]ITALUSE[address] [address] Performing Lab: [facility]PITALRPRATTVILLE BAPTIST HOSPITALTRN MASSUSE[address] [address] [facility]ITALREAST [facility]ENTERN MAS[facility]SE [facility] BASIC METABOLI C PANEL (fasting ) CARBON DIOXIDE, TOTAL [MOLES/VOL UME] IN SERUM OR PLASMA 28 meq/L 20 - 30 04/09 Specimen Type: SERUM No comment entered. Ordering Provider: RONNIE YEPEZ Report Released Date/Time: Apr 05, 2024 04:09 PM Reporting Lab: [facility]OSPITALRPRATTVILLE BAPTIST HOSPITALTRN MASSUSE[address] [address] Performing Lab: [facility]ITALRL WSTRN MASSUSE[address] [address] [facility]OSPITALUSE [facility] BASIC METABOLI C PANEL (fasting ) CREATININE [MASS/VOLU ME] IN SERUM OR PLASMA 0.90 mg/dL 0.50 - 1.40 04/09 Specimen Type: SERUM No comment entered. Ordering Provider: RONNIE YEPEZ Report Released Date/Time: Apr 05, 2024 04:09 PM Reporting Lab: [facility]OSPITALRL WSTRN [place] [address] Performing Lab: [facility]ITALRL WSTRN MASSUSE[address] [address] [facility]ITALREAST [facility]ENTERN [facility]SE [facility] BASIC METABOLI C PANEL (fasting ) GLOMERULAR FILTRATION RATE/1.73 SQ M.PREDICTE D [VOLUME RATE/AREA] IN SERUM, PLASMA OR BLOOD BY CREATININE -BASED FORMULA (CKD-EPI 2020) 84 mL/min 60 04/09 Specimen Type: SERUM No comment entered. Ordering Provider: RONNIE YEPEZ Report Released Date/Time: Apr 05, 2024 04:09 PM Reporting Lab: [facility] [place] [facility] [address] [facility] [address] Performing Lab: [facility] [place] [facility] [address] [facility] [address] [facility] [place] [facility] MICROSCO PIC AUTOMATE D, URINE LEUKOCYTES [#/AREA] IN URINE SEDIMENT BY MICROSCOPY HIGH POWER FIELD 0-5/[HPF ] 0 - 5 04/09 Specimen Type: URINE Comment: If Glucose = >500 and Ketones are positive, please alert the Physician. Ordering Provider: RONNIE YEPEZ Report Released Date/Time: Apr 05, 2024 04:09 PM Reporting Lab: [facility] [place] [facility] [address] [facility] [address] Performing Lab: [facility] [place] [facility] [address] [facility] [address] [facility] [facility] MICROSCO PIC AUTOMATE D, URINE ERYTHROCYT ES [#/AREA] IN URINE SEDIMENT BY MICROSCOPY HIGH POWER FIELD 0-2/[HPF ] 0 - 3 04/09 Specimen Type: URINE Comment: If Glucose = >500 and Ketones are positive, please alert the Physician. Ordering Provider: RONNIE YEPEZ Report Released Date/Time: Apr 05, 2024 04:09 PM Reporting Lab: [facility] [place] [facility] [address] [facility] [address] Performing Lab: [facility] [place] [facility] [address] [facility] [address] [facility] [place] [facility] LIVER FUNCTION PROTEIN [MASS/VOLU ME] IN SERUM OR PLASMA 7.4 g/dL 6.0 - 8.3 04/09 Specimen Type: SERUM No comment entered. Ordering Provider: RONNIE YEPEZ Report Released Date/Time: Apr 05, 2024 04:09 PM Reporting Lab: [facility] [place] [facility] [address] [facility] [address] Performing Lab: [facility] [place] [facility] [address] [facility] [address] [facility] [place] [facility] LIVER FUNCTION ALBUMIN [MASS/VOLU ME] IN SERUM OR PLASMA 4.3 g/dL 3.5 - 5.0 04/09 Specimen Type: SERUM No comment entered. Ordering Provider: RONNIE YEPEZ Report Released Date/Time: Apr 05, 2024 04:09 PM Reporting Lab: [facility] [facility] [address] [facility] [address] Performing Lab: [facility] [facility] [address] [facility] [address] [facility] [place] [facility] LIVER FUNCTION ALKALINE PHOSPHATAS E [ENZYMATIC ACTIVITY/V OLUME] IN SERUM OR PLASMA 58 U/L 40 - 150 04/09 Specimen Type: SERUM No comment entered. Ordering Provider: RONNIE YEPEZ Report Released Date/Time: Apr 05, 2024 04:09 PM Reporting Lab: [facility] [address] [address] Performing Lab: [facility] [facility] [address] [facility] [address] [facility] [place] [facility] LIVER FUNCTION ASPARTATE AMINOTRANS FERASE [ENZYMATIC ACTIVITY/V OLUME] IN SERUM OR PLASMA 21 U/L 5 - 34 04/09 Specimen Type: SERUM No comment entered. Ordering Provider: RONNIE YEPEZ Report Released Date/Time: Apr 05, 2024 04:09 PM Reporting Lab: [facility] [place] [address] [address] Performing Lab: [facility] [place] [facility] [address] [facility] [address] [facility] [place] [facility] LIVER FUNCTION ALANINE AMINOTRANS FERASE [ENZYMATIC ACTIVITY/V OLUME] IN SERUM OR PLASMA 25 U/L 04/09 Specimen Type: SERUM No comment entered. Ordering Provider: RONNIE YEPEZ Report Released Date/Time: Apr 05, 2024 04:09 PM Reporting Lab: [facility] [place] [address] [address] Performing Lab: [facility] [place] [facility] [address] [facility] [address] [facility] [place] [facility] LIVER FUNCTION BILIRUBIN. TOTAL [MASS/VOLU ME] IN SERUM OR PLASMA 0.9 mg/dL 0.2 - 1.2 04/09 Specimen Type: SERUM No comment entered. Ordering Provider: RONNIE YEPEZ Report Released Date/Time: Apr 05, 2024 04:09 PM Reporting Lab: [facility] [place] [facility] [address] [facility] [address] Performing Lab: [facility] [place] [facility] [address] [facility] [address] [facility] [place] [facility] CBC AND DIFF (AUTO) LEUKOCYTES [#/VOLUME] IN BLOOD BY AUTOMATED COUNT 5.27 10*3/uL 4.50 - 11.00 04/09 Specimen Type: BLOOD No comment entered. Ordering Provider: RONNIE YEPEZ Report Released Date/Time: Apr 05, 2024 04:09 PM Reporting Lab: [facility] [place] [facility] [address] [facility] [address] Performing Lab: [facility] [address] [facility] [address] [facility] [place] [facility] CBC AND DIFF (AUTO) ERYTHROCYT ES [#/VOLUME] IN BLOOD BY AUTOMATED COUNT 4.15 10*6/uL 4.23 - 5.66 04/09 L Specimen Type: BLOOD No comment entered. Ordering Provider: RONNIE YEPEZ Report Released Date/Time: Apr 05, 2024 04:09 PM Reporting Lab: [facility] [place] [facility] [address] [facility] [address] Performing Lab: [place] [facility] [place] [address] [address] [facility]ITAL[facility] TRN [facility]CH[facility] CBC AND DIFF (AUTO) HEMOGLOBIN [MASS/VOLU ME] IN BLOOD 13.2 g/dL 12.8 - 17 04/09 Specimen Type: BLOOD No comment entered. Ordering Provider: RONNIE YEPEZ Report Released Date/Time: Apr 05, 2024 04:09 PM Reporting Lab: [facility] [place] [facility] [address] [facility] [address] Performing Lab: [facility] [place] [facility] [address] [facility] [address] [place] [facility] [place] [facility] CBC AND DIFF (AUTO) HEMATOCRIT [VOLUME FRACTION] OF BLOOD BY AUTOMATED COUNT 38.2 39.2 - 50.4 04/09 L Specimen Type: BLOOD No comment entered. Ordering Provider: RONNIE YEPEZ Report Released Date/Time: Apr 05, 2024 04:09 PM Reporting Lab: [facility] [place] [facility] [address] [facility] [address] Performing Lab: [place] [facility] [place] [facility] [address] [facility] [address] [facility] [place] [place] [facility] CBC AND DIFF (AUTO) MCV [ENTITIC VOLUME] BY AUTOMATED COUNT 92.0 fL 82 - 99 04/09 Specimen Type: BLOOD No comment entered. Ordering Provider: RONNIE YEPEZ Report Released Date/Time: Apr 05, 2024 04:09 PM Reporting Lab: [facility] [place] [place] [facility] [address] [facility] [address] Performing Lab: [place] [facility] [place] [facility] [address] [facility] [address] [facility] TRN [place] [facility] CBC AND DIFF (AUTO) MCHC [MASS/VOLU ME] BY AUTOMATED COUNT 34.6 g/dL 30.8 - 35.1 04/09 Specimen Type: BLOOD No comment entered. Ordering Provider: RONNIE YEPEZ Report Released Date/Time: Apr 05, 2024 04:09 PM Reporting Lab: [facility] [place] [facility] [address] [facility] [address] Performing Lab: [facility] [place] [facility] [address] [facility] [address] [facility] [place] [place] [facility] CBC AND DIFF (AUTO) PLATELETS [#/VOLUME] IN BLOOD BY AUTOMATED COUNT 138 10*3/uL 140 - 360 04/09 L Specimen Type: BLOOD No comment entered. Ordering Provider: RONNIE YEPEZ Report Released Date/Time: Apr 05, 2024 04:09 PM Reporting Lab: [facility] [place] [facility] [address] [facility] [address] Performing Lab: [facility] [place] [facility] [address] [facility] [address] [facility] [place] [facility] CBC AND DIFF (AUTO) ERYTHROCYT E DISTRIBUTI ON WIDTH [RATIO] BY AUTOMATED COUNT 13.0 12.0 - 16.0 04/09 Specimen Type: BLOOD No comment entered. Ordering Provider: RONNIE YEPEZ Report Released Date/Time: Apr 05, 2024 04:09 PM Reporting Lab: [facility] [place] [facility] [address] [facility] [address] Performing Lab: [facility] [place] [facility] [address] [facility] [address] [facility] [place] [facility] CBC AND DIFF (AUTO) MONOCYTES [#/VOLUME] IN BLOOD BY AUTOMATED COUNT 0.49 10*3/uL 0.30 - 1.10 04/09 Specimen Type: BLOOD No comment entered. Ordering Provider: RONNIE YEPEZ Report Released Date/Time: Apr 05, 2024 04:09 PM Reporting Lab: [facility] [place] [facility] [address] [facility] [address] Performing Lab: [facility] [place] [facility] [address] [facility] [address] [facility] [place] [facility] CBC AND DIFF (AUTO) MCH [ENTITIC MASS] BY AUTOMATED COUNT 31.8 pg 26.2 - 32.6 04/09 Specimen Type: BLOOD No comment entered. Ordering Provider: RONNIE YEPEZ Report Released Date/Time: Apr 05, 2024 04:09 PM Reporting Lab: [facility] [place] [facility] [address] [facility] [address] Performing Lab: [facility] [place] [address] [address] [facility] [place] [facility] CBC AND DIFF (AUTO) NEUTROPHIL S/100 LEUKOCYTES IN BLOOD BY AUTOMATED COUNT 56.7 43.7 - 75.8 04/09 Specimen Type: BLOOD No comment entered. Ordering Provider: RONNIE YEPEZ Report Released Date/Time: Apr 05, 2024 04:09 PM Reporting Lab: [facility] [place] [facility] [address] [facility] [address] Performing Lab: [facility] [place] [facility] [address] [facility] [address] [facility] [place] [facility] CBC AND DIFF (AUTO) LYMPHOCYTE S/100 LEUKOCYTES IN BLOOD BY AUTOMATED COUNT 28.1 14.0 - 42.3 04/09 Specimen Type: BLOOD No comment entered. Ordering Provider: RONNIE YEPEZ Report Released Date/Time: Apr 05, 2024 04:09 PM Reporting Lab: [facility] [place] [facility] [address] [facility] [address] Performing Lab: [facility] [place] [facility] [address] [facility] [address] [facility] [place] [facility] CBC AND DIFF (AUTO) MONOCYTES/ 100 LEUKOCYTES IN BLOOD BY AUTOMATED COUNT 9.3 5.1 - 13.7 04/09 Specimen Type: BLOOD No comment entered. Ordering Provider: RONNIE YEPEZ Report Released Date/Time: Apr 05, 2024 04:09 PM Reporting Lab: [facility] [place] [facility] [address] [facility] [address] Performing Lab: [facility] [place] [facility] [address] [facility] [address] [facility] [place] [facility] CBC AND DIFF (AUTO) EOSINOPHIL S/100 LEUKOCYTES IN BLOOD BY AUTOMATED COUNT 3.8 0.4 - 6.8 04/09 Specimen Type: BLOOD No comment entered. Ordering Provider: RONNIE YEPEZ Report Released Date/Time: Apr 05, 2024 04:09 PM Reporting Lab: [facility] [place] [facility] [address] [facility] [address] Performing Lab: [facility] [place] [facility] [address] [facility] [address] [facility] [place] [facility] CBC AND DIFF (AUTO) BASOPHILS/ 100 LEUKOCYTES IN BLOOD BY AUTOMATED COUNT 0.8 0.1 - 2.0 04/09 Specimen Type: BLOOD No comment entered. Ordering Provider: RONNIE YEPEZ Report Released Date/Time: Apr 05, 2024 04:09 PM Reporting Lab: [facility] [place] [address] [address] Performing Lab: [facility] [place] [facility] [address] [facility] [address] [facility] [place] [facility] CBC AND DIFF (AUTO) NEUTROPHIL S [#/VOLUME] IN BLOOD BY AUTOMATED COUNT 2.99 10*3/uL 2.20 - 7.60 04/09 Specimen Type: BLOOD No comment entered. Ordering Provider: RONNIE YEPEZ Report Released Date/Time: Apr 05, 2024 04:09 PM Reporting Lab: [facility] [place] [address] [address] Performing Lab: [facility] [place] [address] [address] [facility] [place] [facility] CBC AND DIFF (AUTO) LYMPHOCYTE S [#/VOLUME] IN BLOOD BY AUTOMATED COUNT 1.48 10*3/uL 1.00 - 3.20 04/09 Specimen Type: BLOOD No comment entered. Ordering Provider: RONNIE YEPEZ Report Released Date/Time: Apr 05, 2024 04:09 PM Reporting Lab: [facility] [place] [address] [address] Performing Lab: [facility] [place] [address] [address] [facility] [place] [facility] CBC AND DIFF (AUTO) EOSINOPHIL S [#/VOLUME] IN BLOOD BY AUTOMATED COUNT 0.20 10*3/uL 0.03 - 0.44 04/09 Specimen Type: BLOOD No comment entered. Ordering Provider: RONNIE YEPEZ Report Released Date/Time: Apr 05, 2024 04:09 PM Reporting Lab: [facility] [place] [address] [address] Performing Lab: [facility] [place] [facility] [address] [facility] [address] [facility] [place] [facility] CBC AND DIFF (AUTO) BASOPHILS [#/VOLUME] IN BLOOD BY AUTOMATED COUNT 0.04 10*3/uL 0.01 - 0.13 04/09 Specimen Type: BLOOD No comment entered. Ordering Provider: RONNIE YEPEZ Report Released Date/Time: Apr 05, 2024 04:09 PM Reporting Lab: [facility] [place] [facility] [address] [facility] [address] Performing Lab: [place] [facility] [place] [facility] [address] [facility] [address] [facility] [place] [facility] CBC AND DIFF (AUTO) IMMATURE GRANULOCYT ES/100 LEUKOCYTES IN BLOOD BY AUTOMATED COUNT 1.3 0.0 - 0.7 04/09 H Specimen Type: BLOOD No comment entered. Ordering Provider: RONNIE YEPEZ Report Released Date/Time: Apr 05, 2024 04:09 PM Reporting Lab: [facility] [place] [facility] [address] [facility] [address] Performing Lab: [facility] [place] [facility] [address] [facility] [address] [facility] [place] [facility] CBC AND DIFF (AUTO) IMMATURE GRANULOCYT ES [#/VOLUME] IN BLOOD 0.07 10*3/uL 0.00 - 0.06 04/09 H Specimen Type: BLOOD No comment entered. Ordering Provider: RONNIE YEPEZ Report Released Date/Time: Apr 05, 2024 04:09 PM Reporting Lab: [place] [facility] [place] [facility] [address] [facility] [address] Performing Lab: [place] [facility] [place] [facility] [address] [facility] [address] [facility] [place] [facility] CBC AND DIFF (AUTO) NRBC % 0.0 0.0 - 0.0 04/09 Specimen Type: BLOOD No comment entered. Ordering Provider: RONNIE YEPEZ Report Released Date/Time: Apr 05, 2024 04:09 PM Reporting Lab: [facility] [place] [facility] [address] [facility] [address] Performing Lab: [facility]ITALRL WSTRN [facility]ITALUSETS [facility] [address] [facility] [address] [facility]ITALRL [facility] [place] [facility] CBC AND DIFF (AUTO) NRBC, ABS 0.00 10*3/uL 0.00 - 0.00 04/09 Specimen Type: BLOOD No comment entered. Ordering Provider: RONNIE YEPEZ Report Released Date/Time: Apr 05, 2024 04:09 PM Reporting Lab: [facility]ITALRE[facility]ERN [facility] [address] [facility] [address] Performing Lab: [facility] HOSPITALRPRATTVILLE BAPTIST HOSPITALTRN [facility]OSPITALUSEMAT[facility]AW[facility] [address] [facility] [address] [facility] CREATINI NE EGFR PANEL CREATININE [MASS/VOLU ME] IN SERUM OR PLASMA 1.10 mg/dL 0.5 - 1.5 07/12 Specimen Type: PLASMA No comment entered. Ordering Provider: EMMY HARTMANN Report Released Date/Time: Jul 11, 2023 09:21 AM Reporting Lab: [facility] [address] [facility] [address] Performing Lab: [facility] [address] [facility] [address] [place] [address] CREATINI NE EGFR PANEL GLOMERULAR FILTRATION RATE/1.73 SQ M.PREDICTE D [VOLUME RATE/AREA] IN SERUM, PLASMA OR BLOOD BY CREATININE -BASED FORMULA (CKD-EPI 2020) 66 60 07/12 Specimen Type: PLASMA No comment entered. Ordering Provider: EMMY HARTMANN Report Released Date/Time: Jul 11, 2023 09:21 AM Reporting Lab: [facility] [address] [facility] [address] Performing Lab: [facility] [address] [id number] [place] [address] TSH THYROTROPI N [UNITS/VOL UME] IN SERUM OR PLASMA 3.65 u[IU]/mL 0.35 - 5.00 10/23 /2023 Specimen Type: SERUM No comment entered. Ordering Provider: RONNIE YEPEZ Report Released Date/Time: Apr 07, 2023 04:15 PM Reporting Lab: [facility] [place] [facility] [address] [facility] [address] Performing Lab: [facility] [place] [facility] [address] [facility] [address] [facility] [place] [facility] BASIC METABOLI C PANEL (fasting ) UREA NITROGEN [MASS/VOLU ME] IN SERUM OR PLASMA 18 mg/dL 7 - 25 04/09 Specimen Type: SERUM No comment entered. Ordering Provider: RONNIE YEPEZ Report Released Date/Time: Apr 07, 2023 04:15 PM Reporting Lab: [facility] [place] [facility] [address] [facility] [address] Performing Lab: [facility] [place] [address] [address] [facility] [place] [facility] BASIC METABOLI C PANEL (fasting ) GLUCOSE [MASS/VOLU ME] IN SERUM OR PLASMA 109 mg/dL 65 - 100 04/09 H Specimen Type: SERUM No comment entered. Ordering Provider: RONNIE YEPEZ Report Released Date/Time: Apr 07, 2023 04:15 PM Reporting Lab: [facility] [place] [address] [address] Performing Lab: [facility] [place] [address] [address] [facility] [place] [facility] BASIC METABOLI C PANEL (fasting ) SODIUM [MOLES/VOL UME] IN SERUM OR PLASMA 139 mmol/L 135 - 145 04/09 Specimen Type: SERUM No comment entered. Ordering Provider: RONNIE YEPEZ Report Released Date/Time: Apr 07, 2023 04:15 PM Reporting Lab: [facility] [place] [facility] [address] [facility] [address] Performing Lab: [facility] [place] [address] [address] [facility] [place] [facility] BASIC METABOLI C PANEL (fasting ) POTASSIUM [MOLES/VOL UME] IN SERUM OR PLASMA 4.3 mmol/L 3.5 - 5.0 04/09 Specimen Type: SERUM No comment entered. Ordering Provider: RONNIE YEPEZ Report Released Date/Time: Apr 07, 2023 04:15 PM Reporting Lab: [facility] HOSPITALRPRATTVILLE BAPTIST HOSPITALTRN [facility]OSPITALUSE[address] [address] Performing Lab: [facility] HOSPITALRPRATTVILLE BAPTIST HOSPITALTRN [address] [address] [facility]PITALRPRATTVILLE BAPTIST HOSPITALTRN [facility]ITALUSE [facility] BASIC METABOLI C PANEL (fasting ) CHLORIDE [MOLES/VOL UME] IN SERUM OR PLASMA 105 mmol/L 100 - 110 04/09 Specimen Type: SERUM No comment entered. Ordering Provider: RONNIE YEPEZ Report Released Date/Time: Apr 07, 2023 04:15 PM Reporting Lab: [facility] HOSPITALREAST AL[facility] CENTERN [address] [address] Performing Lab: [facility] HOSPITALRPRATTVILLE BAPTIST HOSPITALTRN [facility]OSPITALUSE[address] [address] [facility] BASIC METABOLI C PANEL (fasting ) CARBON DIOXIDE, TOTAL [MOLES/VOL UME] IN SERUM OR PLASMA 25 meq/L 20 - 30 04/09 Specimen Type: SERUM No comment entered. Ordering Provider: RONNIE YEPEZ Report Released Date/Time: Apr 07, 2023 04:15 PM Reporting Lab: [facility] HOSPITALRPRATTVILLE BAPTIST HOSPITALTRN [facility]ITALUSE[address] [address] Performing Lab: [facility]OSPITALRL WSTRN [facility]OSPITALUSE[address] [address] [facility]ITALRPRATTVILLE BAPTIST HOSPITALTRN [facility]ITALUSE [facility] BASIC METABOLI C PANEL (fasting ) CREATININE [MASS/VOLU ME] IN SERUM OR PLASMA 1.00 mg/dL 0.50 - 1.40 04/09 Specimen Type: SERUM No comment entered. Ordering Provider: RONNIE YEPEZ Report Released Date/Time: Apr 07, 2023 04:15 PM Reporting Lab: [facility] HOSPITALRPRATTVILLE BAPTIST HOSPITALTRN [facility]ITALUSE[address] [address] Performing Lab: [facility] [place] [facility] [address] [facility] [address] [place] [facility] [place] [facility] BASIC METABOLI C PANEL (fasting ) GLOMERULAR FILTRATION RATE/1.73 SQ M.PREDICTE D [VOLUME RATE/AREA] IN SERUM, PLASMA OR BLOOD BY CREATININE -BASED FORMULA (CKD-EPI 2020) 74 mL/min 60 04/09 Specimen Type: SERUM No comment entered. Ordering Provider: RONNIE YEPEZ Report Released Date/Time: Apr 07, 2023 04:15 PM Reporting Lab: [facility]OSPITALRPRATTVILLE BAPTIST HOSPITALTRN [place] [facility] [address] [facility] [address] Performing Lab: [facility]OSPITALTRN [facility]OSPITALUSEMATTEAWAN [facility] [address] [facility] [address] [facility] HOSPITALREAST AL[facility]ENTERN [place] [facility] Vital Signs Combined list of inpatient and outpatient Vital Signs from Department of Defense and Veterans Affairs, ranging from 12 months to all on record, depending upon the facility. Vital Sign Value Date Comments Source PAIN 0 07/21/2024 14[facility]27:13 [facility] TEMPERATURE 98.4 07/21/2024 14:27:13 [facility] SYSTOLIC BLOOD PRESSURE 164 07/14/19 25 12:40:38 [facility] DIASTOLIC BLOOD PRESSURE 88 025 12:40:38 [facility] PULSE OXIMETRY 98 07/14/2024 12:40:38 [facility] WEIGHT 229 07/14/2024 12:40:38 [facility] BMI 31 kg/m2 07/14/2024 12:40:38 [facility] PAIN 0 07/14/2024 12:40:38 [facility] HEIGHT 72 07/14/2024 12:40:38 [facility] TEMPERATURE 96.1 07/14/2024 12:40:38 [facility] PULSE 67 07/14/2024 12:40:38 [facility] RESPIRATION 18 07/14/2024 12:40:38 [facility] SYSTOLIC BLOOD PRESSURE 140 04/21/20 24 13:29:02 [facility] DIASTOLIC BLOOD PRESSURE 80 024 13:29:02 [facility] [...] 08:27:34 [facility] [place] BMI 31 kg/m2 04/18/2024 08:27:34 [facility] [place] [facility] PAIN 0 04/18/2024 08:27:34 [facility] HEIGHT 72 04/18/2024 08:27:34 [facility] [place] TEMPERATURE 98.1 04/18/2024 08:27:34 [facility] [place] PULSE 67 04/18/2024 08:27:34 [facility] RESPIRATION 16 04/18/2024 08:27:34 [facility] TEMPERATURE 97.4 12/31/2023 12:59:06 [facility] [place] [facility] Encounters Combined list of: 1) Encounters from Department of Veterans Affairs facilities going backup to the last 18 months, not all VA inpatient encounters are included; 2) Encounters from the Department of Defense facilities going backup to 280 months. Location Location Details Encounter Type Encounter Number Reason For Visit Attending Provider ADM Date DC Date Status Disposition Source [facility] En[facility] [id number] 04[facility]10 [facility] OFFICE O/P EST LOW 20-29 MIN [id number] Diagnos is: ICD-10- CM 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 JESSICA YEPEZ RD D 04/16 [facility] [place] [facility] OFF/OP EST MAY X REQ PHY/QHP [id number] Diagnos is: ICD-10- CM Z23 Encount er for immuniz cathleen JESSICA YEPEZ RD D 04/25 [facility] [place] [facility] [place] [facility] OFFICE O/P EST LOW 20-29 MIN [id number] Diagnos is: ICD-10- CM I89.0 Lymphed milo, not elsewhe re classif ied SCOTT SANTIAGO D 05/22 [facility] [place] [facility] [place] [facility] Outpatient Encounter [id number] 06/04 [facility] [place] [facility] [place] [facility] OFFICE O/P EST SF 10-19 MIN [id number] Diagnos is: ICD-10- CM R60.9 Edema, unspeci fied SCOTT SANTIAGO D 06/05 [facility] [place] [facility] OFFICE O/P NEW MOD 45-59 MIN [id number] Diagnos is: ICD-10- CM I87.2 Venous insuffi ciency (chroni c) (periph eral) TOBIAS MEEHAN MD 06/07 [facility] ORTHOT[facility] MGMT&TRAIN G 1ST ENC [id number] Diagnos is: ICD-10- CM R60.0 Localiz ed edema Ruddy ESTRADA ACK 06/07 [facility] Outpatient Encounter [id number] Ruddy ESTRADA ACK 06/08 [facility] OFFICE O/P EST LOW 20 MIN [id number] Diagnos is: ICD-10- CM I89.0 Lymphed milo, not elsewhe re classif ied TRIPP JEF Ruddy 07/12 [facility] Outpatient Encounter [id number] EMA BAKER 08/16 [facility] [place] OFFICE O/P EST MOD 30 MIN [id number] Diagnos is: ICD-10- CM M21.371 Foot drop, right foot SCOTT SANTIAGO D 10/01 [facility] [place] Outpatient Encounter [id number] 10/03 [facility] [place] [facility] Outpatient Encounter [id number] SCOTT SANTIAGO D 11/29 [facility] [place] [facility] [place] [facility] Outpatient Encounter [id number] 12/10 [facility] [place] [facility] [place] OFFICE O/P EST LOW 20 MIN [id number] Diagnos is: ICD-10- CM R60.0 Localiz ed edema SCOTT SANTIAGO D 12/30 [facility] [place] [place] [facility] DIABETIC CUSTOM MOLDED SHOE [id number] Diagnos is: ICD-10- CM M20.40 Other hammer toe(s) (acquir ed), unspeci fied foot GALA DE LA CRUZ ANJUM 01/16 [facility] [place] [place] DIABETIC CUSTOM MOLDED SHOE [id number] Diagnos is: ICD-10- CM M21.371 Foot drop, right foot ROSMERYDI JUAN M 02/04 [facility] [place] OFFICE O/P EST LOW 20 MIN [id number] Diagnos is: ICD-10- CM I10 Essenti al (primar y) hyperte JESSICA Fleming RD D 04/18 [facility] [place] OFFICE O/P EST MOD 30 MIN [id number] Diagnos is: ICD-10- CM I10 Essenti al (primar y) hyperte JESSICA Fleming RD 04/18 [facility] [place] [facility] [place] OFF/OP CONSLTJ NEW/[place] HI 55 [id number] Diagnos is: ICD-10- CM M21.371 Foot drop, right foot JOEY ZHENG 04/21 [facility] [place] [facility] [place] [facility] Outpatient Encounter [id number] 04/21 [facility] [place] [facility] [place] [facility] Outpatient Encounter [id number] 05/05 [facility] [place] [facility] OFFICE O/P EST SF 10 MIN [id number] Diagnos is: ICD-10- CM I89.0 Lymphed milo, not elsewhe re classif ied MAXINE FAJARDO MD 07/14 [facility] MGMT&TRAIN G 1ST ENC [id number] Diagnos is: ICD-10- CM I87.2 Venous insuffi ciency (chroni c) (periph eral) SHAHIDCOLTON MARK 07/14 [facility] [place] [facility] Outpatient Encounter [id number] 07/17 [facility] [place] [facility] [place] [facility] OFFICE O/P EST LOW 20 MIN [id number] Diagnos is: ICD-10- CM M21.371 Foot drop, right foot FOSTER,SCOTT RLES D 07/21 [facility] [place] [facility] [place] [facility] OFFICE O/P EST SF 10 MIN [id number] Diagnos is: ICD-10- CM M21.371 Foot drop, right foot FOSTER,SCOTT RLES D 07/28 [facility] [place] [place] [facility] Social History Combined list of available smoking, tobacco, and other social history from Department of Defense and Veterans Affairs facilities. Social History Type Response Date Comment Sourc e Tobacco smoking status [facility] VA-TOBACCO NEVER USED 04/18/2024 [facility] [place] [facility] History of tobacco use VA-TOBACCO NEVER USED 04/16/2023 [facility] [place] [facility] History of tobacco use VA-TOBACCO NEVER USED 05/09/2022 [facility] [place] [facility] History of tobacco use VA-TOBACCO NEVER USED 05/10/2021 [facility] [place] [facility] History of tobacco use VA-TOBACCO NEVER USED 05/17/2020 [facility] [place] [facility] History of tobacco use VA-TOBACCO NEVER USED 04/15/2018 [facility] [place] [facility] History of tobacco use LIFETIME NON-TOBACCO USER 04/17/2017 [facility] [place] [facility] History of tobacco use LIFETIME NON-TOBACCO USER 04/13/2016 [facility] [place] [facility] History of tobacco use FORMER SMOKER - <100 LIFETIME CIGARETTES 04/20/2010 [facility] History of tobacco use HISTORY OF SMOKING 08/12/2004 [facility] History of tobacco use HISTORY OF SMOKING 05/29/2003 [facility] Plan of Care List of future care activities from Department of [facility] facilities. Additional future care activities may be listed in the Assessment and Plan section. Date/Time Care Activity Care Activity Detail Facili ty 01/19/2025 AMBULATORY - MEDICINE AMBULATORY - MEDICI [facility]
--- OUTSIDE RECORDS SUMMARY | 2024-08-05 08:46 | XMS_ITS ---
Author Name [facility] [place] Address [address] [place] [address] Care Team Providers Care Training Mgr Name Role Phone TERRY YEPEZ Primary Care [...] Relationship to Policy Celeste RUSS [place]BS OF [place] MEDIGAP PLAN C PSUED O MEDEX BRONZ E October 17, 2003 [id number] OCTAVIA,DAKOTA CHARD PATIENT BCBS [place] MEDICARE SUPPLEMEN RYAN MEDEX BRONZ E October 17, 2003 [id number] [phone] OCTAVIA,DAKOTA CHARD PATIENT BCBS [place] MEDICARE SUPPLEMEN RYAN MEDEX BRONZ E October 17, 2003 [id number] DAKOTA DUDLEY CHARD PATIENT BCBS OF [facility] MEDICARE SUPPLEMEN RYAN PSUED O MEDEX BRONZ E October 17, 2003 [id number] OCTAVIA,RI CHARD PATIENT MEDICARE (WNR) MEDICARE (M) PART A October 17, 2003 PART A [id number] DAKOTA DUDLEY PATIENT MEDICARE (WNR) MEDICARE (M) PART B October 17, 2003 PART B [id number] DAKOTA DUDLEY PATIENT MEDICARE (WNR) MEDICARE (M) PART A October 17, 2003 PART A [id number] DAKOTA DUDLEY PATIENT MEDICARE (WNR) MEDICARE (M) PART B October 17, 2003 PART B [id number] [phone] DAKOTA DUDLEY PATIENT MEDICARE (WNR) MEDICARE (M) PART A October 17, 2003 PART A [id number] DAKOTA DUDLEY PATIENT MEDICARE (WNR) MEDICARE (M) PART B October 17, 2003 PART B [id number] [phone] DAKOTA DUDLEY PATIENT Selected Encounter This section includes the information on record at [place] for the Encounter. Date/Time Encounter Type Encounter Description Reason Provider Source Apr 18, 2024 08:30 AM OFFICE O/P EST MOD 30 MIN PRIMARY CARE/MEDICINE ICD-10-CM I10 Essential (primary) hypertension TERRY YEPEZ [facility] Encounter Template Text not used by [place] Assessments - Encounter Diagnoses This section includes the primary and secondary diagnoses documented for the Encounter. Date/Time Primary/Secondary Diagnosis Diagnosis Name Provider Source Jul 29, 2024 12:12 PM PRIMARY Essential (primary) hypertension T[facility]Y [facility]PEZ [facility] Jul 29, 2024 12:12 PM SECONDARY Disorder of thyroid, unspecified [facility] Jul 29, 2024 12:12 PM SECONDARY Encounter for immunization ROSA MASON [facility] Plan of Treatment: Future Appointments (+ 6 months) and Future Tests (+/- 45 days) The Plan of Treatment section includes future care activities for the patient from all [place] treatmentfacilities. This section includes future appointments and future orders which are active, pending or scheduled. Future Appointments This section includes appointments that were scheduled to occur 6 months from the date of the Encounter, up to a maximum of 20 appointments. The data comes from all [place] treatment facilities. Appointment Date/Time Appointment Type Appointme nt Facility Name Apr 21, 2024 01:30 PM AMBULATORY - REHAB MEDICIN E [facility] [place] [facility] Jul 14, 2024 01:00 PM AMBULATORY - SURGERY RODOLFO ABARCA [facility] Jul 14, 2024 01:30 PM AMBULATORY - NONE RODOLFO DELUNA [facility] Jul 21, 2024 02:30 PM AMBULATORY - MEDICINE [place] [facility] [place] [facility] Jul 28, 2024 01:00 PM AMBULATORY - MEDICINE [place] [facility] Lab Results: +/- 30 days of the encounter This section includes the Chemistry and Hematology Lab Results on record with [place] for the patient. Radiology Reports and Pathology Reports are provided separately, in subsequent sections. Lab Results This section contains the Chemistry/Hematology Results that were resulted 30 days before or 30 daysafter the date of the Encounter. Date/Time Source Result Type Result - Unit Interpretation Reference Range Comment Apr 09, 2024 10:53 AM [facility] TSH Specimen Type: SERUM No comment entered. Ordering Provider: TERRY YEPEZ Report Released Date/Time: Apr 05, 2024 04:09 PM Reporting Lab: [facility] [place] [facility] [address] [facility] [address] Performing Lab: [facility] [address] [address] TSH 5.83 u[IU]/mL H 0.35-5.00 Apr 09, 2024 10:53 AM [facility] LIPID PANEL FASTING Specimen Type: SERUM No comment entered. Ordering Provider: TERRY YEPEZ Report Released Date/Time: Apr 05, 2024 04:09 PM Reporting Lab: [facility] [address] [facility] [address] Performing Lab: [facility] [address] [address] CHOLESTEROL 130 mg/dL TRIGLYCERIDE 92 mg/dL 0-150 LDL calculated 67 mg/dL 0-129 CHOL/HDL 2.9 HDL CHOLESTEROL 45 mg/dL 40-60 Apr 09, 2024 10:53 AM [facility] Specimen Type: URINE Comment: If Glucose = >500 and Ketones are positive, please alert the Physician. Ordering Provider: TERRY YEPEZ Report Released Date/Time: Apr 05, 2024 04:09 PM Reporting Lab: [facility] [address] [facility] [address] Performing Lab: [address] [address] UA COLOR Colorless Yellow UA APPEARANCE Clear Clear UA GLUCOSE Normal mg/dL Negative UA KETONES NEGATIVE mg/dL Negative UA BLOOD NEGATIVE mg/dL Negative UA PROTEIN NEGATIVE mg/dL Negative UA NITRITE NEGATIVE mg/dL Negative UA BILIRUBIN NEGATIVE mg/dL Negative UA SPECIFIC GRAVITY 1.009 L 1.016-1.022 UA pH 6.5 5.0-9.0 UA UROBILINOGEN Normal mg/dL <2.0 UA LEUKOCYTE TRACE Negative Apr 09, 2024 10:53 AM [facility] BASIC METABOLIC PANEL (fasting) Specimen Type: SERUM No comment entered. Ordering Provider: TERRY YEPEZ Report Released Date/Time: Apr 05, 2024 04:09 PM Reporting Lab: [address] [address] Performing Lab: [address] [address] UREA NITROGEN 22 mg/dL 7-25 GLUCOSE 104 mg/dL H 65-100 SODIUM 138 mmol/L 135-145 POTASSIUM 4.5 mmol/L 3.5-5.0 CHLORIDE 104 mmol/L 100-110 CO2 28 meq/L 20-30 CREATININE, Serum 0.90 mg/dL 0.50-1.40 eGFR(CKD-EPI 2020) 84 mL/min >60 Apr 09, 2024 10:53 AM [facility] MICROSCOPIC AUTOMATED, URINE Specimen Type: URINE Comment: If Glucose = >500 and Ketones are positive, please alert the Physician. Ordering Provider: TERRY YEPEZ Report Released Date/Time: Apr 05, 2024 04:09 PM Reporting Lab: [address] [address] Performing Lab: [facility] [address] [facility] [address] UA WBC 0-5 /[HPF] 0-5 UA RBC 0-2 /[HPF] 0-3 Apr 09, 2024 10:53 AM [facility] LIVER FUNCTION Specimen Type: SERUM No comment entered. Ordering Provider: TERRY YEPEZ Report Released Date/Time: Apr 05, 2024 04:09 PM Reporting Lab: [address] [address] Performing Lab: [address] [address] PROTEIN,TOTAL 7.4 g/dL 6.0-8.3 ALBUMIN 4.3 g/dL 3.5-5.0 ALKALINE PHOSPHATASE 58 U/L 40-150 AST 21 U/L 5-34 ALT 25 U/L BILIRUBIN, TOTAL 0.9 mg/dL 0.2-1.2 Apr 09, 2024 10:53 AM [facility] CBC AND DIFF (AUTO) Specimen Type: BLOOD No comment entered. Ordering Provider: TERRY YEPEZ Report Released Date/Time: Apr 05, 2024 04:09 PM Reporting Lab: [address] [address] Performing Lab: [address] [address] WBC 5.27 10*3/uL 4.50-11.00 RBC 4.15 10*6/uL [...] Source Apr 18, 2024 08:52 AM 134/82 [place] [facility] [facility] Apr 18, 2024 08:27 AM 98.1 67 145/81 16 96 0 72 229.7 31 [place] [facility] [place] [facility] Immunizations: All administered on the encounter date [...] and tobacco- related health factors from the [place] facility where the Encounter took place. Current Smoking Status This section includes the most current smoking, or tobacco-related health factor, from the [place] facility where the Encounter took place. Date/Time Current Smoking Status Comment Fadi valles Apr 18, 2024 08:30 AM VA-TOBACCO NEVER USED [place] [facility] [place] [facility] Tobacco Use History This section includes a history of the smoking, or tobacco-related health factors, that were collected on or before the date of the Encounter. The data comes from the [place] facility where the Encounter took place. Date/Time Smoking Status/Tobacco Use Comment F acility Apr 16, 2023 09:30 AM VA-TOBACCO NEVER USED [facility] [facility] May 09, 2022 09:00 AM VA-TOBACCO NEVER USED [facility] [facility] May 10, 2021 08:00 AM VA-TOBACCO NEVER USED [facility] [facility] May 17, 2020 03:00 PM VA-TOBACCO NEVER USED [facility] [place] [facility] Apr 15, 2018 09:31 AM VA-TOBACCO NEVER USED [facility] [place] [facility] Apr 17, 2017 08:56 AM LIFETIME NON-TOBACCO USER [facility] [facility] Apr 13, 2016 08:54 AM LIFETIME NON-TOBACCO USER [facility] [facility] Apr 20, 2010 08:59 AM FORMER SMOKER - <1 00 LIFETIME CIGARETTES [place] [facility] [place] [facility] Aug 12, 2004 09:12 AM HISTORY OF SMOKING [facility] [place] [facility] May 29, 2003 01:11 PM HISTORY OF SMOKING [facility] [place] [facility] May 29, 2003 01:11 PM QUIT TOBACCO USE > 7 YEARS AGO [place] [facility] [place] [facility] Encounter Notes: All associated encounter [...] Administered: Apr 18, 2024 08:30 Series: Complete District Traffic Chief: SANOFI PASTEUR Lot: [id number] Exp Date: Dec 15, 2024 [facility]: [phone] Admin Route/Site: INTRAMUSCULAR/RIGHT DELTOID Dosage: 0.5mL Vaccine Information Statement(s): INFLUENZA(FLU) VACC(INACTIVATED OR RECOMBINANT)VIS Jan 21, 2021 (QATARI) Order By: Policy Administered By: Rosa Mason The Influenza Vaccine Information Statement (VIS) was [...] Administered: Apr 18, 2024 08:30 Series: Booster District Traffic Chief: MODERNA Red [employer]. Lot: [id number] Exp Date: Nov 22, 2024 [place]: [id number] Admin Route/Site: INTRAMUSCULAR/LEFT DELTOID Dosage: 0.5mL Vaccine Information Statement(s): COVID-19 MRNA VACCINE (12+ YRS) VACCINE VIS Apr 03, 2024 (QATARI) Order By: Policy Administered By: Rosa Mason Vaccine administered without complications. /tha/ Rosa Mason RN, BSN Primary Care Signed: 04/18/2024 09:06 ROSA [place] [facility] [place] [facility] Apr 18, 2024 08:30 AM PREVENTIVE MEDICINE [...] Not at all Suicide Screen: C-SSRS Screening [place] Suicide Severity Rating Scale (C-SSRS) screener 1. [...] Comment: will get a copy to this [place] Tobacco Use Screening: The patient has never [...] LPN LPN Signed: 04/18/2024 08:34 SEB GARCIA [place] [facility]
--- OUTSIDE RECORDS SUMMARY | 2024-08-05 08:46 | XMS_ITS | Encounter Summary ---
Author Name [facility] [place] Address [address] [place] [address] Care Team Providers Care Virtual Assistant For Advertisers Name Role Phone TERRY YEPEZ Primary Care [...] Relationship to Policy Celeste RUSS BCBS OF [place] MEDIGAP PLAN C PSUED O MEDEX BRONZ E October 17, 2003 [id number] OCTAVIA,DAKOTA CHARD PATIENT BCBS [place] MEDICARE SUPPLEMEN RYAN MEDEX BRONZ E October 17, 2003 [id number] [phone] OCTAVIA,ADKOTA CHARD PATIENT [place] MED[place] SUPPLEMEN RYAN MEDEX BRONZ E October 17, 2003 [id number] [phone] DAKOTA DUDLEY CHARD PATIENT BCBS OF [facility] MEDICARE SUPPLEMEN RYAN PSUED O MEDEX BRONZ E October 17, 2003 [id number] OCTAVIA,DAKOTA CHARD PATIENT MEDICARE (WNR) MEDICARE (M) PART A October 17, 2003 PART A [id number] [phone] DAKOTA DUDLEY PATIENT MEDICARE (WNR) MEDICARE (M) PART B October 17, 2003 PART B [id number] DAKOTA DUDLEY PATIENT MEDICARE (WNR) MEDICARE (M) PART A October 17, 2003 PART A [id number] DAKOTA DUDLEY PATIENT MEDICARE (WNR) MEDICARE (M) PART B October 17, 2003 PART B [id number] DAKOTA DUDLEY PATIENT MEDICARE (WNR) MEDICARE (M) PART A October 17, 2003 PART A [id number] DAKOTA DUDLEY PATIENT MEDICARE (WNR) MEDICARE (M) PART B October 17, 2003 PART B [id number] DAKOTA DUDLEY PATIENT Selected Encounter This section includes the information on record at [place] for the Encounter. Date/Time Encounter Type Encounter Description Reason Provider Source Jul 28, 2024 01:00 PM OFFICE O/P EST SF 10 MIN PODIATRY ICD-10-CM M21.371 Foot drop, right foot DIAZ NAVA [facility] Encounter Template Text not used by [place] Assessments - Encounter Diagnoses This section includes the primary and secondary diagnoses documented for the Encounter. Date/Time Primary/Secondary Diagnosis Diagnosis Name Provider Source Jul 29, 2024 02:50 PM PRIMARY Foot drop, right foot DIAZ NAVA [facility] Plan of Treatment: Future Appointments (+ 6 months) and Future Tests (+/- 45 days) The Plan of Treatment section includes future care activities for the patient from all [place] treatmentfacilities. This section includes future appointments and future orders which are active, pending or scheduled. Future Appointments This section includes appointments that were scheduled to occur 6 months from the date of the Encounter, up to a maximum of 20 appointments. The data comes from all [place] treatment facilities. Appointment Date/Time Appointment Type Appointme nt Facility Name Jan 19, 2025 02:30 PM [facility] Social History: Smoking Status (Most current) and Tobacco Use (All prior to encounter date) This section includes the most current, and the historical, smoking and tobacco- related health factors from the [place] facility where the Encounter took place. Current Smoking Status This section includes the most current smoking, or tobacco-related health factor, from the [place] facility where the Encounter took place. Date/Time Current Smoking Status Comment Faid holdeny Apr 18, 2024 08:30 AM VA-TOBACCO [facility]ED [facility] Tobacco Use History This section includes a history of the smoking, or tobacco-related health factors, that were collected on or before the date of the Encounter. The data comes from the [place] facility where the Encounter took place. Date/Time Smoking Status/Tobacco Use Comment Gaston acility Apr 16, 2023 09:30 AM VA-TOBACCO NEVER USED [place] [facility] [place] [facility] May 09, 2022 09:00 AM VA-TOBACCO NEVER USED [facility] [place] [facility] May 10, 2021 08:00 AM VA-TOBACCO NEVER USED [facility] [place] [facility] May 17, 2020 03:00 PM VA-TOBACCO NEVER USED [facility] [place] [facility] Apr 15, 2018 09:31 AM VA-TOBACCO NEVER USED [facility] [place] [facility] Apr 17, 2017 08:56 AM LIFETIME NON-TOBACCO USER [facility] [facility] Apr 13, 2016 08:54 AM LIFETIME NON-TOBACCO USER [facility] [facility] Apr 20, 2010 08:59 AM FORMER SMOKER - <1 00 LIFETIME CIGARETTES [facility] [place] [facility] Aug 12, 2004 09:12 AM HISTORY OF SMOKING [facility] [place] [facility] May 29, 2003 01:11 PM HISTORY OF SMOKING [place] [facility] [place] [facility] May 29, 2003 01:11 PM QUIT TOBACCO USE > 7 YEARS AGO [place] [facility] [place] [facility] Encounter Notes: All associated encounter notes This section contains the clinical notes associated to the Encounter. Date/Time Encounter Note(s) Provider Source Jul 28, 2024 01:26 PM PODIATRY NOTE: LOCAL TITLE: PODIATRY NOTE STANDARD TITLE: PODIATRY NOTE DATE OF NOTE: JUL 28, 2024@13:26 ENTRY DATE: JUL 28, 2024@13:26:06 AUTHOR: DIAZ NAVA EXP COSIGNER: URGENCY: STATUS: COMPLETED Podiatry [facility] Follow up Provider: Diaz Nava Date: JUL 28, 2024 [address], [place] [address] October 83 MALE [phone] PATIENT PHONE - Primary Care: TERRY YEPEZ Follow up Visit Concern: Patient seen last week for dropfoot issues edema and reported that he had developed some irritation on his davila from his brace asked to bring brace in today for evaluation. 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 This can be relocated laterally so that it does not put pressure on the bony aspect. We also added eighth inch felt to the strap to protect the tibial tuberosity. And added neoprene to the forefoot of the brace which was not protected with any soft material Impression: -Dropfoot -Prosthetic issues brace Plan: -Added padding to brace as specified above Follow-up on regular scheduled routine visit 6 months Return sooner if any fever chills [...] as results of the physical exam and rewards consultant opinions and recommendations as sought. Alternatives [...] -The on this visit was given information Revl service and encouraged to enroll if not already having done so. /tha/ DIAZ NAVA DPM PODIATRY ATTENDING Signed: 07/29/2024 14:50 DIAZ NAVA [place] [facility] [facility]
--- OUTSIDE RECORDS SUMMARY | 2024-08-05 08:46 | XMS_ITS | Clinical Summary ---
Author Organization [facility] Address [address] [place] [address] Care Team Providers Care Industrial Laborer Name Role Phone Royal Aguila MD Primary Care Provider [phone] Allergies Active Allergy Reactions Criticality Noted Date Comments Aspirin GI intolerance 07/15/2009 Doxycycline 07/15/2009 Other Reaction(s): Hives/Urticaria Lisinopril 03/26/2023 Medications amoxicillin (AMOXIL) 500 mg tablet Take 1 tablet (500 mg total) by mouth 2 (two) times a day. Active furosemide (LASIX) 20 mg tablet Take 1 tablet (20 mg total) by mouth 1 (one) time each day. Active levothyroxine (SYNTHROID, LEVOTHROID) 75 mcg tablet Take 1 tablet (75 mcg total) by mouth 1 (one) time each day. Active simvastatin (ZOCOR) 20 mg tablet 1 TABLET AT BEDTIME Active warfarin (COUMADIN) 7.5 mg tablet 7.5 to 10 mg daily or as dir Active Active Problems Problem Noted Date Diagnosed Date (HFpEF) heart failure with preserved ejection fr action 03/26/2023 Overview (05/23/2024): HFpEF with LVEF 45 to 50% by echocardiogram 2019. Peripheral edema throughout the day. Requiring Lasix daily. Last Assessment & Plan: Significant peripheral edema managed with Lasix and compression stockings. No signs of pulmonary edema. Continue with current diuretic dose a low-sodium diet and manual management of the peripheral edema. 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 Initial pacemaker placed in 2008 with right atrial lead thousand eighteen 8852 cm and a ventricular lead that is a sixteen 8858 cm. Generator replacement 2019. He is now programmed VVI given the atrial fibrillation chronicity. Last Assessment & Plan: Normally functioning permanent pacemaker with several years of battery longevity remaining. And ventricular pacing noticed on ECG. Continue remote monitoring of his device. Continue with warfarin. Discussed left atrial appendage closure and DOACs but prefers to continue with the generic anticoagulant. Social History Tobacco Use Types Packs/Day Years Used Date Smoking Tobacco: Never Smokeless Tobacco: Never Alcohol Use Standard Drinks/Week Comments Not Currently 0 (1 standard drink = 0.6 oz pur e alcohol) Sex and Gender Information Value Date Recorded Sex Assigned at Not on file Legal Sex Male 6:04 PM EST Gender Identity Not on file Sexual Orientation Not on file Obstetrics History Last Filed Vital Signs Vital Sign Reading Time Taken Comments Blood Pressure 140/80 03/25/2024 2:38 PM EDT Pulse 62 03/25/2024 2:38 PM EDT Temperature - - Respiratory Rate - - Oxygen Saturation - - Inhaled Oxygen Concentration - - Weight 106 kg (234 lb) 03/25/2024 2:38 PM EDT Height 182.9 cm (6') 03/25/2024 2:38 PM EDT Body Mass Index 31.74 03/25/2024 2:38 PM EDT Plan of Treatment Upcoming Encounters Date Type Department Care Team (Late st Contact Info) Description 08/18/2024 3:30 PM EST Ancillary Procedure [facility] [address] [facility] [address] [place] [address] Health Maintenance Due Date Last Done Comments DTaP,Tdap,and Td Vaccines (1 - Tdap) 1957 Pneumococcal Vaccine: 50+ Ye ars (1 of 2 - PCV) 1957 Zoster Vaccines (1 of 2) 1988 RSV Immunization Patients 60 + Years Old (1 - 1-dose 75+ series) 2013 Cholesterol Screening (Lipid Panel) 05/27/2022 Depression Screening 05/27/2022 Falls Risk Assessment 05/27/2022 Social Influencers of Health Screening 05/27/2022 Hypertension/CHF/CAD Annual BMP Blood Test 07/17/2023 Medicare Annual Wellness Visit 08/25/2023 08/24/2022 COVID-19 Vaccine (1 - 2023-2 5 season) 2024 Influenza Vaccine (#1) 2024 04/15/2022 HIB Vaccines Aged Out No longer eligi ble based on patient's age to complete this topic HPV Vaccines Aged Out No longer eligi ble based on patient's age to complete this topic Hepatitis A Vaccines Aged Out No long er eligible based on patient's age to complete this topic Hepatitis B Vaccines Aged Out No long er eligible based on patient's age to complete this topic IPV Vaccines Aged Out No longer eligi ble based on patient's age to complete this topic MMR Vaccines Aged Out No longer eligi ble based on patient's age to complete this topic Meningococcal ACWY Vaccine Aged Out N o longer eligible based on patient's age to complete this topic Meningococcal B Vacine Aged Out No lo nger eligible based on patient's age to complete this topic RSV Immunization Patients Un asim 20 months Aged Out No longer eligible b ased on patient's age to complete this topic Varicella Vaccines Aged Out No longer eligible based on patient's age to complete this topic Insurance MEDICARE [facility] Care Teams Industrial Laborer Relationship Specialty Start Date End Date Royal Aguila MD [address] [place] [address] [address] [facility] [place] [address] PCP - General Internal Medicine 05/15/20
== END 2024-08-05 08:42 | disposition home or self-care (01) ==
LOC: HO.ACS 08:26
PROVIDERS: PCP Internal Medicine; Visit Provider Internal Medicine
DX: Z79.01 Long term (current) use of anticoagulants (principal)

== ENCOUNTER → 2024-08-05 08:26 | Outpatient (BNVA) | payer MEDICARE, SELFPAY | PROVIDERS: PCP Internal Medicine; Visit Provider Internal Medicine | DX: I48.20 Chronic atrial fibrillation, unspecified (principal); Z79.01 Long term (current) use of anticoagulants; Z51.81 Encounter for therapeutic drug level monitoring | CPT/HCPCS: 85610; 99211 ==

== ENCOUNTER 2024-09-09 08:23 | Outpatient (AMB) | payer MEDICARE, SELFPAY ==
[2024-09-09 08:39] LABS: Prothrombin Time Whole Bld POC 32.7 sec (11.1-13.5); ~PT, ~INR - Anti Coag Clinic 2.7 (0.9-1.1)
--- NOTE | 2024-09-09 08:41 | MHC.OFFVISCO ---
Intake Intake Visit Reasons: Anticoagulation Allergies doxycycline [Doxycycline] Allergy (Severe, Verified 09/09/24 08:25) HIVES lisinopril Allergy (Severe, Verified 09/09/24 08:25) RASH Medication List - Last Reconciled 09/09/24 by Josefa Paredes RN doxepin 3 mg PO BEDTIME PRN fluticasone propionate 50 mcg/actuation (Flonase Allergy Relief) 1 spray intranasal DAILY furosemide 20 mg PO DAILY 90 days levothyroxine 75 mcg PO QAM metoprolol succinate ER 25 mg PO DAILY simvastatin 20 mg PO BEDTIME warfarin (Juntoven) See Protocol 7.5 mg QD orally QD; 90 days warfarin (Juntoven) See Protocol 10 mg X 6-7 DAYS/ WEEK WARFARIN DOSE PER INR Nursing Note INR: 2.7 in therapeutic range Medications and supplements reviewed- no change Per pt he will require toe/nail surgery in near future and also to have keratosis removed with liquid nitrogen- he will call if warfarin needs holding or INR required before.if no hold on warfarin before toenail procedure enc to maybe have INR done few days before and to eat greens 3-4 days before to have lower INR going in to it Denies any signs and symptoms of bleeding or bruising or clotting. Bleeding, bruising, clotting discussed Nutritional guidance given - if no hold on warfarin before toenail procedure enc to maybe have INR done few days before and to eat greens 3-4 days before to have lower INR going in to it Dose: same 7.5mg x 1 day/ 10mg x 6 days F/U INR: 1 month Patient verbalizes understanding of instructions given Anti-Coag Initial Assessment Social Hx Patient Tobacco Use Status: Never used Tobacco alcohol intake: current Alcohol intake frequency: holidays/special occasions only Coding Level of Care Code Est Patient Level 1 Diagnoses Current use of anticoagulant therapy Z79.01 Results AMB INR Fingerstick AMB INR Fingerstick 2.7 Last Edit by Josefa Paredes RN on 09/09/24 08:35 Assessment & Plan Assessment & Plan (1) Current use of anticoagulant therapy: Code(s): Z79.01 - assisted (current) use of anticoagulants Category: Medical
--- OUTSIDE RECORDS SUMMARY | 2024-09-09 08:52 | XMS_ITS | Encounter Summary ---
Author Organization [facility] Address [address] [place] [address] Care Team Providers Care Copy Clerk Name Role Phone Royal Aguila MD Primary Care Provider [phone] Encounter Details Date Type Department Care Team (Latest Contact Info) Description 08/18/2024 3:30 PM EST Ancillary Procedure [facility] [address] [facility] [address] [place] [address] Encounter for adjustment or management of cardiac device Social History Tobacco Use Types Packs/Day Years Used Date Smoking Tobacco: Never Smokeless Tobacco: Never Alcohol Use Standard Drinks/Week Comments Not Currently 0 (1 standard drink = 0.6 oz pur e alcohol) Sex and Gender Information Value Date Recorded Sex Assigned at Not on file Legal Sex Male 6:04 PM EST Gender Identity Not on file Sexual Orientation Not on file documented as of this encounter Plan of Treatment Upcoming Encounters Date Type Department Care Team (Late st Contact Info) Description 02/18/2025 3:30 PM EDT Ancillary Procedure [facility] [address] [place] [address] 04/13/2025 9:25 AM EDT Office Visit [facility] [address] [place] [address] William Damon MD [address] [place] [address] documented as of this encounter Procedures Procedure Name Priority Date/Time Associated Diagnosis Comments CARDIAC DEVICE CHECK- IN [facility]- [facility] Routine 08/18/2024 3:38 PM EST Encounter for adjustment or management of cardiac device documented in this encounter Results * CARDIAC DEVICE CHECK- [facility]- [facility] (08/18/2024 3:38 PM EST) Date Time Interrogation Session [id number] CV DEVICE CHECK Implantable Pulse Generator Dialysis Registered Nurse [facility] CV DEVICE CHECK Implantable Pulse Generator Type IPG CV DEVICE CHECK Implantable Pulse Generator Model Assurity MRI 2272 CV DEVICE CHECK Implantable Pulse Generator Serial Number [id number] CV DEVICE CHECK Implantable Pulse Generator Implant Date 20200528 CV DEVICE CHECK Battery Voltage 3.010 CV D EVICE CHECK Battery Status Middle of Service CV DEVICE CHECK Kristopher Statistic RA Percent Paced 0.00 CV DEVICE CHECK Kristopher Statistic RV Percent Paced 89.00 CV DEVICE CHECK Lead Channel Sensing Intrinsic Amplitude 11.700 CV DEVICE CHECK Lead Channel Setting Sensing Sensitivity 2.00 CV DEVICE CHECK Lead Channel Impedance Value 375 CV DEVICE CHECK Lead Channel Pacing Threshold Amplitude 0.750 CV DEVICE CHECK Lead Channel Pacing Threshold Pulse Width 0.5 CV DEVICE CHECK Lead Channel RV Pacing Threshold Date 2024-08-18 CV DEVICE CHECK Lead Channel Setting Pacing Amplitude 1.000 CV DEVICE CHECK Lead Channel Setting Pacing Pulse Width 0.5 CV DEVICE CHECK Kristopher Setting Mode (NBG Code) VVIR CV DEVICE CHECK Kristopher Setting Lower Rate Limit 65 CV DEVICE CHECK Kristopher Setting Maximum Sensor Rate 115 CV DEVICE CHECK Date of Service 2025-02-11 CV DEVICE CHECK Anatomical Region Laterality Modality Device Interroga tion 08/18/2024 Impressions 08/21/2024 9:53 AM EST Normal In-Office: With Events * Normal Device Function * Events or Alerts: 1 new HVR alert, EGM suggestive of 6-beats NSVT * Battery: MOS, 7.30 yrs * Sensing, impedance and thresholds reviewed and tested * Presenting Rhythm: AF 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 * Underlying Rhythm: AF VS 60s * Heart Rate Histograms reviewed * Pacing and Detection Parameters were evaluated Narrative Procedure Note William Damon MD - 08/21/2024 IMPRESSION: Normal In-Office: With Events * Normal Device Function * Events or Alerts: 1 new HVR alert, EGM suggestive of 6-beats NSVT * Battery: MOS, 7.30 yrs * Sensing, impedance and thresholds reviewed and tested * Presenting Rhythm: AF 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 * Underlying Rhythm: AF VS 60s * Heart Rate Histograms reviewed * Pacing and Detection Parameters were evaluated us Order Referral Cardiovascular CV IMPLANTABLE CAR DIAC DEVICE PROCEDURES Final Result documented in this encounter Visit Diagnoses Diagnosis Encounter for adjustment or management of cardiac device Encounter for adjustment or management of cardiac device documented in this encounter Care Teams Copy Clerk Relationship Specialty Start Date End Date Royal Aguila MD [address] [place] [address] [address] [facility] [place] [address] PCP - General Internal Medicine 05/15/20 documented as of this encounter
--- OUTSIDE RECORDS SUMMARY | 2024-09-09 08:52 | XMS_ITS | Encounter Summary ---
Author Name [facility] [place] Address [address] [place] [address] Care Team Providers Care Ripening Room Attendant Name Role Phone TERRY YEPEZ Primary Care [...] Patient's Relationship to Policy Celeste RUSS BCBS [facility] MEDICARE SUPPLEMEN RYAN PSUED O MEDEX BRONZ E October 17, 2003 [id number] OCTAVIA,DAKOTA CHARD PATIENT BCBS CT MEDICARE SUPPLEMEN RYAN MEDEX BRONZ E October 17, 2003 [id number] OCTAVIA,RI CHARD PATIENT BCBS [place] MEDICARE SUPPLEMEN RYAN MEDEX BRONZ E October 17, 2003 [id number] [phone] OCTAVIA,RI CHARD PATIENT BCBS [facility] MEDICARE SUPPLEMEN RYAN PSUED O MEDEX BRONZ E October 17, 2003 [id number] [phone] OCTAVIA,DAKOTA CHARD PATIENT MEDICARE (WNR) MEDICARE (M) PART A October 17, 2003 PART A [id number] DAKOTA DUDLEYD PATIENT MEDICARE (WNR) MEDICARE (M) PART B October 17, 2003 PART B [id number] DAKOTA DUDLEY PATIENT MEDICARE (WNR) MEDICARE (M) PART A October 17, 2003 PART A [id number] DAKOTA DUDLEYD PATIENT MEDICARE (WNR) MEDICARE (M) PART B October 17, 2003 PART B [id number] DAKOTA DUDLEY PATIENT MEDICARE (WNR) MEDICARE (M) PART A October 17, 2003 PART A [id number] DAKOTA DUDLEY PATIENT MEDICARE (WNR) MEDICARE (M) PART B October 17, 2003 PART B [id number] DAKOTA DUDLEY PATIENT MEDICARE (WNR) MEDICARE (M) PART A October 17, 2003 PART A [id number] DAKOTA DUDLEY PATIENT MEDICARE (WNR) MEDICARE (M) PART B October 17, 2003 PART B [id number] DAKOTA DUDLEY PATIENT Selected Encounter This section includes the information on record at [place] for the Encounter. Date/Time Encounter Type Encounter Description Reason Provider Source Jul 14, 2024 01:00 PM OFFICE O/P EST SF 10 MIN VASCULAR SURGERY ICD-10-CM I89.0 Lymphedema, not elsewhere classified GYPSY FAJARDO MD [facility] Encounter Template Text not used by [place] Assessments - Encounter Diagnoses This section includes the primary and secondary diagnoses documented for the Encounter. Date/Time Primary/Secondary Diagnosis Diagnosis Name Provider Source Aug 12, 2024 08:26 PM PRIMARY Lymphedema, not elsewhere classified NETTIE VELIZ [facility] Plan of Treatment: Future Appointments (+ 6 months) and Future Tests (+/- 45 days) The Plan of Treatment section includes future care activities for the patient from all [place] treatmentfacilities. This section includes future appointments and future orders which are active, pending or scheduled. Future Appointments This section includes appointments that were scheduled to occur 6 months from the date of the Encounter, up to a maximum of 20 appointments. The data comes from all [place] treatment facilities. Appointment Date/Time Appointment Type Appointme nt Facility Name Jul 21, 2024 02:30 PM AMBULATORY - MEDICINE [place] [facility] [place] [facility] Jul 28, 2024 01:00 PM [facility] Vital Signs: All taken on the encounter date This section contains inpatient and outpatient Vital Signs collected on the date of the Encounter. Date/Time Temperature Pulse Blood Pressure Respiratory Rate SP02 Pain Height Weight Body Mass Index Source Jul 14, 2024 12:40 PM 96.1 67 164/88 18 98 0 72 229 31 [facility] Encounter Notes: All associated encounter notes This section contains the clinical notes associated to the Encounter. Date/Time Encounter Note(s) Provider Source Jul 14, 2024 01:32 PM VASCULAR SURGERY N OTE: LOCAL TITLE: VASCULAR SURGERY STANDARD TITLE: VASCULAR SURGERY NOTE DATE OF NOTE: JUL 14, 2024@13:32 ENTRY DATE: JUL 14, 2024@13:32:51 AUTHOR: MARION MOMIN EXP COSIGNER: URGENCY: STATUS: COMPLETED HPI: 83 yom presenting for follow up of marked edema RLE, after wearing compression socks. He states that he notices that his right foot has some more swelling, but his calves have improved. No new symptoms of non-healing wounds. Still ambulatory, no pain. 07/14/2024 13:33 CONFIDENTIAL SURGICAL PROC BRIEF SUMMARY pg. 1 ILAN DUDLEY [id number] : 1940 MEDS: OUTPT MEDICATIONS: NONE No [...] of compression stockings. /tha/ Marion Momin DO Rail Transit Operator Signed: 07/14/2024 13:40 MARION MOMIN [facility]
--- OUTSIDE RECORDS SUMMARY | 2024-09-09 08:52 | XMS_ITS | Encounter Summary ---
Author Name [facility] [place] [facility] [place] [facility] [place] Address [address] [place] [address] Care Team Providers Care Clamp Carrier Operator Name Role Phone TERRY YEPEZ Primary Care [...] to Policy Celeste RUSS BCBS OF [place] MEDICARE SUPPLEMEN RYAN PSUED O MEDEX BRONZ E October 17, 2003 [id number] OCTAVIADAKOTA CHARD PATIENT BCBS [place] MEDICARE SUPPLEMEN RYAN MEDEX BRONZ E October 17, 2003 [id number] OCTAVIANC CHARD PATIENT BCBS [place] MEDICARE SUPPLEMEN RYAN MEDEX BRONZ E October 17, 2003 [id number] [phone] OCTAVIA,RI CHARD PATIENT BCBS OF [facility] MEDICARE SUPPLEMEN RYAN PSUED O MEDEX BRONZ E October 17, 2003 [id number] OCTAVIA,DAKOTA CHARD PATIENT MEDICARE (WNR) MEDICARE (M) PART A October 17, 2003 PART A [id number] DAKOTA DUDLEY PATIENT MEDICARE (WNR) MEDICARE (M) PART B October 17, 2003 PART B [id number] [phone] DAKOTA DUDLEY PATIENT MEDICARE (WNR) MEDICARE (M) PART A October 17, 2003 PART A [id number] DAKOTA DUDLEYD PATIENT MEDICARE (WNR) MEDICARE (M) PART B October 17, 2003 PART B [id number] DAKOTA DUDLEY PATIENT MEDICARE (WNR) MEDICARE (M) PART A October 17, 2003 PART A [id number] DAKOTA DUDLEY PATIENT MEDICARE (WNR) MEDICARE (M) PART B October 17, 2003 PART B [id number] DAKOTA DUDLEY PATIENT MEDICARE (WNR) MEDICARE (M) PART A October 17, 2003 PART A [id number] DAKOTA DUDLEY PATIENT MEDICARE (WNR) MEDICARE (M) PART B October 17, 2003 PART B [id number] DAKOTA DUDLEY PATIENT Selected Encounter This section includes the information on record at [place] for the Encounter. Date/Time Encounter Type Encounter Description Reason Provider Source Jul 28, 2024 01:00 PM OFFICE O/P EST SF 10 MIN PODIATRY ICD-10-CM M21.371 Foot drop, right foot TIMUR NAVA Philip Encounter Template Text not used by [place] Assessments - Encounter Diagnoses This section includes the primary and secondary diagnoses documented for the Encounter. Date/Time Primary/Secondary Diagnosis Diagnosis Name Provider Source Jul 29, 2024 02:50 PM PRIMARY Foot drop, right foot TIMUR NAVA [place] [facility] [place] [facility] Plan of Treatment: Future Appointments (+ 6 [...] 19, 2025 02:30 PM AMBULATORY - MEDICINE [place] [facility] [place] [facility] Social History: Smoking Status (Most current) and Tobacco Use (All prior to encounter date) This section includes the most current, and the historical, smoking and tobacco- related health factors from the VA facility where the Encounter took place. Current Smoking Status This section includes the most current smoking, or tobacco-related health factor, from the VA facility where the Encounter took place. Date/Time Current Smoking Status Comment Facil ity Apr 18, 2024 08:30 AM VA-TOBACCO NEVER USED [place] [facility] [place] [facility] Tobacco Use History This section includes a history of the smoking, or tobacco-related health factors, that were collected on or before the date of the Encounter. The data comes from the [place] facility where the Encounter took place. Date/Time Smoking Status/Tobacco Use Comment F acility Apr 16, 2023 09:30 AM VA-TOBACCO NEVER USED [facility] [place] [facility] May 09, 2022 09:00 AM VA-TOBACCO NEVER USED [facility] [place] [facility] May 10, 2021 08:00 AM VA-TOBACCO NEVER USED [facility] [place] [facility] May 17, 2020 03:00 PM VA-TOBACCO NEVER USED [facility] [place] [facility] Apr 15, 2018 09:31 AM VA-TOBACCO NEVER USED [facility] [place] [facility] Apr 17, 2017 08:56 AM LIFETIME NON-TOBACCO USER [facility] [place] [facility] Apr 13, 2016 08:54 AM LIFETIME NON-TOBACCO USER [facility] [place] [facility] Apr 20, 2010 08:59 AM FORMER SMOKER - <1 00 LIFETIME CIGARETTES [facility] [place] [facility] Aug 12, 2004 09:12 AM HISTORY OF SMOKING [facility] [place] [facility] May 29, 2003 01:11 PM HISTORY OF SMOKING [facility] [place] [facility] May 29, 2003 01:11 PM QUIT TOBACCO USE > 7 YEARS AGO [facility] [place] [facility] Encounter Notes: All associated encounter notes This section contains the clinical notes associated to the Encounter. Date/Time Encounter Note(s) Provider Source Jul 28, 2024 01:26 PM PODIATRY NOTE: LOCAL TITLE: PODIATRY NOTE STANDARD TITLE: PODIATRY NOTE DATE OF NOTE: JUL 28, 2024@13:26 ENTRY DATE: JUL 28, 2024@13:26:06 AUTHOR: TIMUR NAVA EXP COSIGNER: URGENCY: STATUS: COMPLETED Podiatry [facility] Follow up Provider: Timur Nava Date: JUL 28, 2024 [address]AN DUDLEY [address] [place] [id number] October [birth year] MALE [id number] PATIENT PHONE - Primary Care: TERRY YEPEZ [...] list may not be complete. Please check [facility]. FACILITY ALLERGY/ADR -------- No Remote Allergy/ADR Data [...] as results of the physical exam and insolvency consultant opinions and recommendations as sought. Alternatives [...] -The on this visit was given information My [employer] service and encouraged to enroll if not already having done so. /tha/ TIMUR NAVA DPM PODIATRY ATTENDING Signed: 07/29/2024 14:50 TIMUR NAVA [place] [facility]
--- OUTSIDE RECORDS SUMMARY | 2024-09-09 08:52 | XMS_ITS | Encounter Summary ---
Author Name [facility] [place] Organization [facility] [place] Address [address] [place] [address] Care Team Providers Care Ballistics Teacher Name Role Phone TERRY YEPEZ Primary Care [...] to Policy Celeste RUSS [place] MEDICARE SUPPLEMEN RYAN PSUED O MEDEX BRONZ E October 17, 2003 [id number] OCTAVIA,DAKOTA CHARD PATIENT [place]BS [place] MED[place] SUPPLEMEN RYAN MEDEX BRONZ E October 17, 2003 [id number] [phone] OCTAVIADC CHARD PATIENT [place]BS [place] MED[place] SUPPLEMEN RYAN MEDEX BRONZ E October 17, 2003 [id number] [phone] OCTAVIA,RI CHARD PATIENT BCBS OF [facility] MEDICARE SUPPLEMEN RYAN PSUED O MEDEX BRONZ E October 17, 2003 [id number] OCTAVIA,RI CHARD PATIENT MEDICARE (WNR) MEDICARE (M) PART A October 17, 2003 PART A [id number] DAKOTA DUDLEY PATIENT MEDICARE (WNR) MEDICARE (M) PART B October 17, 2003 PART B [id number] DAKOTA DUDLEY PATIENT MEDICARE (WNR) MEDICARE (M) PART A October 17, 2003 PART A [id number] [phone] DAKOTA DUDLEYD PATIENT MEDICARE (WNR) MEDICARE (M) PART B October 17, 2003 PART B [id number] DAKOTA DUDLEY PATIENT MEDICARE (WNR) MEDICARE (M) PART A October 17, 2003 PART A [id number] DAKOTA DUDLEY PATIENT MEDICARE (WNR) MEDICARE (M) PART B October 17, 2003 PART B [id number] DAKOTA DUDLEY PATIENT MEDICARE (WNR) MEDICARE (M) PART A October 17, 2003 PART A [id number] DAKOTA DUDLEY PATIENT MEDICARE (WNR) MEDICARE (M) PART B October 17, 2003 PART B [id number] DAKOTA DUDLEY PATIENT Selected Encounter This section includes the information on record at [place] for the Encounter. Date/Time Encounter Type Encounter Description Reason Provider Source Jul 21, 2024 02:30 PM OFFICE O/P EST LOW 20 MIN PODIATRY ICD-10-CM M21.371 Foot drop, right foot TIMUR NAVA [facility] Encounter Template Text not used by [place] Assessments - Encounter Diagnoses This section includes the primary and secondary diagnoses documented for the Encounter. Date/Time Primary/Secondary Diagnosis Diagnosis Name Provider Source Aug 28, 2024 12:25 PM PRIMARY Foot drop, right foot TIMUR NAVA [facility] [place] [facility] Aug 28, 2024 12:25 PM SECONDARY Generalized edema TIMUR NAVA [facility] [place] [facility] Plan of Treatment: Future Appointments (+ 6 months) and Future Tests (+/- 45 days) The Plan of Treatment section includes future care activities for the patient from all [place] treatmentfacilities. This section includes future appointments and future orders which are active, pending or scheduled. Future Appointments This section includes appointments that were scheduled to occur 6 months from the date of the Encounter, up to a maximum of 20 appointments. The data comes from all [place] treatment facilities. Appointment Date/Time Appointment Type Appointme nt Facility Name Jul 28, 2024 01:00 PM AMBULATORY - MEDICINE [place] [facility] [place] [facility] Vital Signs: All taken on the encounter date This section contains inpatient and outpatient Vital Signs collected on the date of the Encounter. Date/Time Temperature Pulse Blood Pressure Respiratory Rate SP02 Pain Height Weight Body Mass Index Source Jul 21, 2024 02:27 PM 98.4 0 [place] [facility] [place] [facility] Social History: Smoking Status (Most current) and Tobacco Use (All prior to encounter date) This section includes the most current, and the historical, smoking and tobacco- related health factors from the [place] facility where the Encounter took place. Current Smoking Status This section includes the most current smoking, or tobacco-related health factor, from the [place] facility where the Encounter took place. Date/Time Current Smoking Status Comment Facil ity Apr 18, 2024 08:30 AM VA-TOBACCO NEVER USED [place] [facility] [place] [facility] Tobacco Use History This section includes a history of the smoking, or tobacco-related health factors, that were collected on or before the date of the Encounter. The data comes from the [place] facility where the Encounter took place. Date/Time Smoking Status/Tobacco Use Comment F acility Apr 16, 2023 09:30 AM VA-TOBACCO NEVER USED [facility] [place] [facility] May 09, 2022 09:00 AM VA-TOBACCO NEVER USED [facility] [place] [facility] May 10, 2021 08:00 AM VA-TOBACCO NEVER USED [facility] [place] [facility] May 17, 2020 03:00 PM VA-TOBACCO NEVER USED [facility] [place] [facility] Apr 15, 2018 09:31 AM VA-TOBACCO NEVER USED VA [facility] [place] [facility] Apr 17, 2017 08:56 AM LIFETIME NON-TOBACCO USER [facility] [place] [facility] Apr 13, 2016 08:54 AM LIFETIME NON-TOBACCO USER [facility] [place] [facility] Apr 20, 2010 08:59 AM FORMER SMOKER - <1 00 LIFETIME CIGARETTES [facility] Aug 12, 2004 09:12 AM HISTORY OF SMOKING [facility] May 29, 2003 01:11 PM HISTORY OF SMOKING [facility] May 29, 2003 01:11 PM QUIT TOBACCO USE > 7 YEARS AGO [facility] Encounter Notes: All associated encounter notes This section contains the clinical notes associated to the Encounter. Date/Time Encounter Note(s) Provider Source Jul 21, 2024 02:45 PM PODIATRY NOTE: LOCAL TITLE: PODIATRY NOTE STANDARD TITLE: PODIATRY NOTE DATE OF NOTE: JUL 21, 2024@14:45 ENTRY DATE: JUL 21, 2024@14:45:36 AUTHOR: TIMUR NAVA EXP COSIGNER: URGENCY: STATUS: COMPLETED Podiatry [facility] Follow up Provider: Timur Nava Date: JUL 21, 2024 IL[address] DUDLEY [address] [place] [id number] October 85 MALE [phone] PATIENT PHONE - Primary Care: TERRY YEPEZ Follow up Visit Concern: Dropfoot, unilateral leg swelling on the right. Patient was seen in [place] had a CT scan done to rule out pelvic mass which was negative, fitted with CircAid compression stockings, and here was noted to have dropfoot L4-5 and fitted with brace, not articulated. Subjective: When I was done at [place] they told me everything is stable and [...] [facility] [place] [facility] MINOCYCLINE PE: Well-appearing, ambulatory with dropfoot gait, [...] as results of the physical exam and senior energy consultant opinions and recommendations as sought. Alternatives [...] on this visit was given information [employer] service and encouraged to enroll if not already having done so. /es/ TIMUR NAVA DPM PODIATRY ATTENDING Signed: 07/21/2024 14:53 TIMUR NAVA [place] [facility]
--- OUTSIDE RECORDS SUMMARY | 2024-09-09 08:52 | XMS_ITS | Encounter Summary ---
Author Name [facility] [place] [facility] [place] Organization [facility] [place] Address [address] [place] [address] Care Team Providers Care Sample Prep Technician Name Role Phone TERRY YEPEZ Primary Care [...] Relationship to Policy Celeste RUSS [place] OF [place] MED[place]ARE SUPPLEMEN RYAN PSUED O MEDEX BRONZ E October 17, 2003 [id number] [phone] OCTAVIADAKOTA CHARD PATIENT [place] MED[place] SUPPLEMEN RYAN MEDEX BRONZ E October 17, 2003 [id number] OCTAVIASC CHARD PATIENT [place]BS [place] MED[place] SUPPLEMEN RYAN MEDEX BRONZ E October 17, 2003 [id number] OCTAVIA,RI CHARD PATIENT BCBS OF [facility] MEDICARE SUPPLEMEN RYAN PSUED O MEDEX BRONZ E October 17, 2003 [id number] OCTAVIA,RI CHARD PATIENT MEDICARE (WNR) MEDICARE (M) PART A October 17, 2003 PART A [id number] [phone] DAKOTA DUDLEY PATIENT MEDICARE (WNR) MEDICARE (M) PART B October 17, 2003 PART B [id number] DAKOTA DUDLEY PATIENT MEDICARE (WNR) MEDICARE (M) PART A October 17, 2003 PART A [id number] DAKOTA DUDLEY PATIENT MEDICARE (WNR) MEDICARE (M) PART B October 17, 2003 PART B [id number] DAKOTA DUDLEY PATIENT MEDICARE (WNR) MEDICARE (M) PART A October 17, 2003 PART A [id number] DAKOTA DUDLEY PATIENT MEDICARE (WNR) MEDICARE (M) PART B October 17, 2003 PART B [id number] DAKOTA DUDLEY PATIENT MEDICARE (WNR) MEDICARE (M) PART A October 17, 2003 PART A [id number] [phone] DAKOTA DUDLEY PATIENT MEDICARE (WNR) MEDICARE (M) PART B October 17, 2003 PART B [id number] DAKOTA DUDLEY PATIENT Selected Encounter This section includes the information on record at MD for the Encounter. Date/Time Encounter Type Encounter Description Reason Provider Source Apr 18, 2024 08:30 AM OFFICE O/P EST MOD 30 MIN PRIMARY CARE/MEDICINE ICD-10-CM I10 Essential (primary) hypertension TERRY YEPEZ [facility] Encounter Template Text not used by MD Assessments - Encounter Diagnoses This section includes the primary and secondary diagnoses documented for the Encounter. Date/Time Primary/Secondary Diagnosis Diagnosis Name Provider Source Jul 29, 2024 12:12 PM PRIMARY Essential (primary) hypertension TERRY YEPEZ [facility] [place] [facility] Jul 29, 2024 12:12 PM SECONDARY Disorder of thyroid, unspecified TERRY YEPEZ [facility] [place] [facility] Jul 29, 2024 12:12 PM SECONDARY Encounter for immunization [facility] Plan of Treatment: Future Appointments (+ 6 months) and Future Tests (+/- 45 days) The Plan of Treatment section includes future care activities for the patient from all [place] treatmentfacilities. This section includes future appointments and future orders which are active, pending or scheduled. Future Appointments This section includes appointments that were scheduled to occur 6 months from the date of the Encounter, up to a maximum of 20 appointments. The data comes from all MD treatment facilities. Appointment Date/Time Appointment Type Appointme nt Facility Name Apr 21, 2024 01:30 PM AMBULATORY - REHAB MEDICIN E MD [facility]TR [facility] [place] [facility] Jul 14, 2024 01:00 PM AMBULATORY - SURGERY [facility] Jul 14, 2024 01:30 PM AMBULATORY - NONE [facility] Jul 21, 2024 02:30 PM AMBULATORY - MEDICINE [facility] [place] [facility] Jul 28, 2024 01:00 PM [facility] Lab Results: +/- 30 days of the encounter This section includes the Chemistry and Hematology Lab Results on record with MD for the patient. Radiology Reports and Pathology Reports are provided separately, in subsequent sections. Lab Results This section contains the Chemistry/Hematology Results that were resulted 30 days before or 30 daysafter the date of the Encounter. Date/Time Source Result Type Result - Unit Interpretation Reference Range Comment Apr 09, 2024 10:53 AM [facility] TSH Specimen Type: SERUM No comment entered. Ordering Provider: TERRY YEPEZ Report Released Date/Time: Apr 05, 2024 04:09 PM Reporting Lab: [facility] [address] [address] Performing Lab: [facility] [address] [address] TSH 5.83 u[IU]/mL H 0.35-5.00 Apr 09, 2024 10:53 AM [facility] URINALYSIS CLEAN CATCH Specimen Type: URINE Comment: If Glucose = >500 and Ketones are positive, please alert the Physician. Ordering Provider: TERRY YEPEZ Report Released Date/Time: Apr 05, 2024 04:09 PM Reporting Lab: [facility] [place] [facility] [address] [address] Performing Lab: [facility] [address] [address] UA COLOR Colorless Yellow UA APPEARANCE Clear Clear UA GLUCOSE Normal mg/dL Negative UA KETONES NEGATIVE mg/dL Negative UA BLOOD NEGATIVE mg/dL Negative UA PROTEIN NEGATIVE mg/dL Negative UA NITRITE NEGATIVE mg/dL Negative UA BILIRUBIN NEGATIVE mg/dL Negative UA SPECIFIC GRAVITY 1.009 L 1.016-1.022 UA pH 6.5 5.0-9.0 UA UROBILINOGEN Normal mg/dL <2.0 UA LEUKOCYTE TRACE Negative Apr 09, 2024 10:53 AM [facility] LIPID PANEL FASTING Specimen Type: SERUM No comment entered. Ordering Provider: TERRY YEPEZ Report Released Date/Time: Apr 05, 2024 04:09 PM Reporting Lab: [address] [address] Performing Lab: [address] [address] CHOLESTEROL 130 mg/dL TRIGLYCERIDE 92 mg/dL 0-150 LDL calculated 67 mg/dL 0-129 CHOL/HDL 2.9 HDL CHOLESTEROL 45 mg/dL 40-60 Apr 09, 2024 10:53 AM [facility] BASIC METABOLIC PANEL (fasting) Specimen Type: SERUM No comment entered. Ordering Provider: TERRY YEPEZ Report Released Date/Time: Apr 05, 2024 04:09 PM Reporting Lab: [address] [address] Performing Lab: [address] [address] UREA NITROGEN 22 mg/dL 7-25 GLUCOSE 104 mg/dL H 65-100 SODIUM 138 mmol/L 135-145 POTASSIUM 4.5 mmol/L 3.5-5.0 CHLORIDE 104 mmol/L 100-110 CO2 28 meq/L 20-30 CREATININE, Serum 0.90 mg/dL 0.50-1.40 eGFR(CKD-EPI 2020) 84 mL/min >60 Apr 09, 2024 10:53 AM [facility] CBC AND DIFF (AUTO) Specimen Type: BLOOD No comment entered. Ordering Provider: TERRY YEPEZ Report Released Date/Time: Apr 05, 2024 04:09 PM Reporting Lab: [address] [address] Performing Lab: [address] [address] WBC 5.27 10*3/uL 4.50-11.00 RBC 4.15 10*6/uL [...] 0.0 0.0-0.0 NRBC, ABS 0.00 10*3/uL 0.00-0.00 Apr 09, 2024 10:53 AM [facility] LIVER FUNCTION Specimen Type: SERUM No comment entered. Ordering Provider: TERRY YEPEZ Report Released Date/Time: Apr 05, 2024 04:09 PM Reporting Lab: [address] [address] Performing Lab: [facility] [address] [address] PROTEIN,TOTAL 7.4 g/dL 6.0-8.3 ALBUMIN 4.3 g/dL 3.5-5.0 ALKALINE PHOSPHATASE 58 U/L 40-150 AST 21 U/L 5-34 ALT 25 U/L BILIRUBIN, TOTAL 0.9 mg/dL 0.2-1.2 Apr 09, 2024 10:53 AM [facility] MICROSCOPIC AUTOMATED, URINE Specimen Type: URINE Comment: If Glucose = >500 and Ketones are positive, please alert the Physician. Ordering Provider: TERRY YEPEZ Report Released Date/Time: Apr 05, 2024 04:09 PM Reporting Lab: [facility] [address] [address] Performing Lab: [address] [address] UA WBC 0-5 /[HPF] 0-5 UA RBC 0-2 /[HPF] 0-3 Vital Signs: All taken on the encounter date This section contains inpatient and outpatient Vital Signs collected on the date of the Encounter. Date/Time Temperature Pulse Blood Pressure Respiratory Rate SP02 Pain Height Weight Body Mass Index Source Apr 18, 2024 08:52 AM 134/82 [facility] Apr 18, 2024 08:27 AM 98.1 67 145/81 16 96 0 72 229.7 31 [facility] Immunizations: All administered on the encounter [...] and tobacco- related health factors from the [place] facility where the Encounter took place. Current Smoking Status This section includes the most current smoking, or tobacco-related health factor, from the [place] facility where the Encounter took place. Date/Time Current Smoking Status Comment Fadi valles Apr 18, 2024 08:30 AM [facility]ACCO [facility] Tobacco Use History This section includes a history of the smoking, or tobacco-related health factors, that were collected on or before the date of the Encounter. The data comes from the [place] facility where the Encounter took place. Date/Time Smoking Status/Tobacco Use Comment [facility]aston acility Apr 16, 2023 09:30 AM VA-TOBACCO NEVER USED [facility] [place] [facility] May 09, 2022 09:00 AM VA-TOBACCO NEVER USED [facility] [place] [facility] May 10, 2021 08:00 AM VA-TOBACCO NEVER USED [facility] [place] [facility] May 17, 2020 03:00 PM VA-TOBACCO NEVER USED [facility] [place] [facility] Apr 15, 2018 09:31 AM VA-TOBACCO NEVER USED MD [facility] [place] [facility] Apr 17, 2017 08:56 AM LIFETIME NON-TOBACCO USER MD [facility] [place] [facility] Apr 13, 2016 08:54 AM LIFETIME NON-TOBACCO USER MD [facility] [place] [facility] Apr 20, 2010 08:59 AM FORMER SMOKER - <1 00 LIFETIME CIGARETTES MD [facility] [place] [facility] Aug 12, 2004 09:12 AM HISTORY OF SMOKING MD [facility] [place] [facility] May 29, 2003 01:11 PM HISTORY OF SMOKING MD [facility] [place] [facility] May 29, 2003 01:11 PM QUIT TOBACCO USE > 7 YEARS AGO MD [facility] [place] [facility] Encounter Notes: All associated encounter notes This section contains the clinical notes associated to the Encounter. Date/Time Encounter Note(s) Provider Source Apr 18, 2024 09:04 AM PREVENTIVE MEDICINE NURSING NOTE: LOCAL TITLE: CLINICAL REMINDERS/NURSING STANDARD TITLE: PREVENTIVE MEDICINE NURSING NOTE DATE OF NOTE: APR 18, 2024@09:04 ENTRY DATE: APR 18, 2024@09:04:12 AUTHOR: ROSA MASON COSIGNER: URGENCY: STATUS: COMPLETED Influenza Immunization: Influenza, High-Dose, Trivalent, Preservative Free (Fluzone-Syringe) Administered: INFLUENZA, HIGH-DOSE, TRIVALENT, PF Date Administered: Apr 18, 2024 08:30 Series: Complete Pavilion Cutter: SANOFI PASTEUR Lot: [id number] Exp Date: Dec 15, 2024 NDC: 581774301990 Admin Route/Site: INTRAMUSCULAR/RIGHT DELTOID Dosage: 0.5mL Vaccine Information Statement(s): INFLUENZA(FLU) VACC(INACTIVATED OR RECOMBINANT)VIS Jan 21, 2021 ([place]) Order By: Policy Administered By: Rosa Mason [...] Administered: Apr 18, 2024 08:30 Series: Booster Pavilion Cutter: MODERNA nfon. Lot: [id number] Exp Date: Nov 22, 2024 NDC: [id number] Admin Route/Site: INTRAMUSCULAR/LEFT DELTOID Dosage: 0.5mL Vaccine Information Statement(s): COVID-19 MRNA VACCINE (12+ YRS) VACCINE VIS Apr 03, 2024 ([place]) Order By: Policy Administered By: Rosa Mason Vaccine administered without complications. /tha/ Rosa Mason RN, BSN Primary Care Signed: 04/18/2024 09:06 ROSA MASON [facility] Apr 18, 2024 08:30 AM PREVENTIVE MEDICINE [...] Not at all Suicide Screen: C-SSRS Screening [place] Suicide Severity Rating Scale (C-SSRS) screener 1. [...] Comment: will get a copy to this MD Tobacco Use Screening: The patient has never [...] LPN LPN Signed: 04/18/2024 08:34 SEB GARCIA [facility]
--- OUTSIDE RECORDS SUMMARY | 2024-09-09 08:52 | XMS_ITS | Clinical Summary ---
Author Organization [address] [place] [address] [place] [id number] Phone Care Team Providers Care Cash Applications Representative Name Role Phone Royal Aguila MD Primary Care Provider [phone] Allergies Active Allergy Reactions Criticality Noted Date [...] prefers to continue with the generic anticoagulant. Encounters Date Type Department Care Team Description 08/18/2024 3:30 PM EST Ancillary Procedure [facility] Cardiology [facility] [address] [place] [address] Encounter for adjustment or management of cardiac device from Last 3 Months Social History Tobacco Use Types Packs/Day Years [...] Ancillary Procedure [facility] Cardiology [facility] [address] [place] [address] 04/13/2025 9:25 AM EDT Office Visit [facility] Cardiology [facility] [address] [place] [address] William Damon MD [address] [place] [address] Health Maintenance Due Date Last Done Comments Cholesterol Screening (Lipid Panel) 05/27/2022 Depression Screening 05/27/2022 Falls Risk Assessment 05/27/2022 Social Influencers of Health Screening 05/27/2022 Hypertension/CHF/CAD Annual BMP Blood Test 07/17/2023 Medicare Annual Wellness Visit 08/25/2023 08/24/2022 DTaP,Tdap,and Td Vaccines (5 - Td or Tdap) 04/16/2033 04/16/2023, 09/26/2016, 05/20/2013, Additional history exists Pneumococcal Vaccine: 50+ Years Completed 05/02/2018, 05/17/2015, 06/01/2014, Additional history exists Zoster Vaccines Completed 04/14/2019, 04/15/2018 RSV Immunization Patients 60+ Years Old Completed 04/25/2023 COVID-19 Vaccine Completed 04/18/2024, , 03/28/2022, Additional history exists Influenza Vaccine Completed 04/18/2024, , 04/15/2022, Additional history exists HIB Vaccines Aged Out No longer eligi [...] to complete this topic RSV Immunization Patients Under 20 months Aged Out No longer eligible based on patient's age to complete this topic Varicella Vaccines Aged Out No longer eligible based on patient's age to complete this topic Medical Devices Implanted Type Area Chemist Pharmaceutical Device Identifier Shelf Expiration Date Model / Serial / Lot Abbt-Desiree Assurity Mri [id number] Implanted:04/2020 (Quantity not on file) Cardiac Pacemaker [facility] [employer] MRI 2272 / [id number] / Procedures Procedure Name Priority Date/Time Associated Diagnosis Comments CARDIAC DEVICE CHECK- IN [facility]- [facility] Routine 08/18/2024 3:38 PM EST Encounter for adjustment or management of cardiac device from Last 3 Months Results * CARDIAC DEVICE CHECK- IN [facility]- [facility] (08/18/2024 3:38 PM EST) Date Time Interrogation Session [id number] CV DEVICE CHECK Implantable Pulse Generator [employer] CV DEVICE CHECK Implantable Pulse Generator Type IPG CV DEVICE CHECK Implantable Pulse Generator Model Assurity MRI 2272 CV DEVICE CHECK Implantable Pulse Generator Serial Number [id number] CV DEVICE CHECK Implantable Pulse Generator Implant [...] reviewed and tested * Presenting Rhythm: AF BED RUBBER 80s * Underlying Rhythm: AF VS 60s [...] reviewed and tested * Presenting Rhythm: AF BED RUBBER 80s * Underlying Rhythm: AF VS 60s * Heart Rate Histograms reviewed * Pacing and Detection Parameters were evaluated us Order Referral Cardiovascular CV IMPLANTABLE CAR DIAC DEVICE PROCEDURES Final Result from Last 3 Months Insurance MEDICARE [facility] Care Teams Cash Applications Representative Relationship Specialty Start Date End Date Royal Aguila MD [address] [place] [address] [address] [facility] [place] [address] PCP - General Internal Medicine 05/15/20
--- OUTSIDE RECORDS SUMMARY | 2024-09-09 08:53 | XMS_ITS | Continuity of Care Document ---
Author Name [facility] Organization DOD-OR Care Team Providers Care Well Surveying Engineer Name Role Phone DOD-OR Unavailable Unavailable Problems Combined list of problems [...] HCS Rosacea * (ICD-9-CM 695.3) Active Condition [facility] [place] [facility] SINUSITIS, CHRONIC Active Condition [facility] [place] [facility] Superficial basal cell carcinoma Active Condition Feb 28, 2006 Entered By: ALFONSO ARCINIEGA Comment: [facility]ect[facility] [facility] Screening for Malignant Neoplasms of colon Inactive Condition 05/29/2003 May 29, 2003 Entered By: JOSH RODRIGUEZ Comment: colonscopy 02/18 one benign polyp, Mother had colon [facility] Diagnosis: ICD-10-CM M21.371 Foot drop, right foot Active [facility] [place] [facility] Diagnosis: ICD-10-CM I87.2 Venous insufficiency (chronic) (peripheral) Active Diagnosis [facility] Diagnosis: ICD-10-CM I89.0 Lymphedema, not elsewhere classified Active Diagnosis [facility] Diagnosis: ICD-10-CM I10 Essential (primary) hypertension Active Diagnosis [facility] [place] [facility] Diagnosis: ICD-10-CM M20.40 Other hammer toe(s) (acquired), unspecified foot Active Diagnosis [facility] [place] [facility] Diagnosis: ICD-10-CM R60.0 Localized edema Active Diagnosis [facility] [place] [facility] Diagnosis: ICD-10-CM R60.9 Edema, unspecified [facility] [place] [facility] Diagnosis: ICD-10-CM Z23 Encounter for immunization Active Diagnosis [facility] [place] [facility] Medications Combined list of outpatient medications from Department of Defense and Veterans Affairs facilities.Medications provided include 1) outpatient medications from the last 15 months, and 2) patient-reported medications. Medication Details Route Status Patient Instructions Prescription Expires Prescription Number Last Dispense Date Ordering Provider Order Date Order Qty Source FUROSEMIDE 20MG TAB TAKE ONE TABLET BY MOUTH EVERY DAY ORAL ACTIVE NED [facility]Z [facility] [place] [facility] LEVOTHYROXI NE NA 50MCG TAB (SYNTHROID) TAKE ONE TABLET BY MOUTH EVERY DAY ORAL ACTIVE NED YEPEZ 2011 [facility] [place] [facility] [facility] LISINOPRIL 20MG TAB TAKE ONE TABLET BY MOUTH EVERY DAY ORAL ACTIVE LUCHO,HOW FELIPA D 2011 [facility] [place] [facility] [facility] METOPROLOL SUCCINATE TAB,SA TAKE 12.5MG BY MOUTH EVERY DAY ORAL ACTIVE LUCHO,HOW FELIPA D 2011 [facility] [place] [facility] MULTIVITAMI NS W/MINERALS TAB TAKE ONE TABLET BY MOUTH ORAL ACTIVE EMILY RODRIGUEZ 2004 [facility] [place] [facility] [facility] SIMVASTATIN 40MG TAB TAKE ONE-HALF TABLET BY MOUTH AT BEDTIME ORAL ACTIVE LUCHO,HOW FELIPA D 2023 [facility] [place] [facility] [facility] WARFARIN NA (MOORE STATE) 10MG TAB TAKE DIRECTED BY MOUTH WITH DIRECTIO NS PROVIDED FROM THE [facility] ORAL ACTIVE LUCHO,HOW FELIPA D 2011 [facility] [place] [facility] Allergies, Adverse Reactions, Alerts Combined list of allergies from Department of Defense and Veterans Affairs facilities. It does not include entries that were removed or entered in error. Substance Category Reaction Severity Reaction type Status Date Reported Comments Source AMOXICILLIN Propensity to adverse reactions to drug (finding) Eruption active 3 [facility] [place] [facility] CALCIUM Propensity to adverse reactions to drug (finding) Eruption active 3 [facility] [place] [facility] MINOCYCLINE Propensity to adverse reactions to drug (finding) Eruption active 3 [facility] [place] [facility] Immunizations Combined list of available immunizations from the Department of Defense and Veterans Affairs facilities. Immunization Series Date Given Administered By Site Reaction Lot Number CVX Code Drug Program/Music Director Status Comments Source COVID-19 (MODERNA), MRNA, LNP-S, PF, 50 MCG/0.5 ML (AGES 12+ YEARS) 2023 CASSI BONNER LEFT DELTO ID [id number] 312 [facility] ed [facility] INFLUENZA, HIGH-DOSE, TRIVALENT, PF 2023 CASSI BONNER RIGHT DELTO ID [id number] 135 complet ed [facility] [place] [facility] [facility] RSV, BIVALENT, PROTEIN SUBUNIT RSVPREF, DILUENT RECONSTITUTED , 0.5 ML, PF 2022 CASSI BONNER RIGHT DELTO ID [id number] 305 complet ed [facility] [place] [facility] COVID-19 (MODERNA), MRNA, LNP-S, PF, 50 MCG/0.5 ML (AGES 12+ YEARS) 4 2022 SHYLA HERNANDEZ M RIGHT DELTO ID [id number] 312 complet ed [facility] [place] [facility] INFLUENZA, HIGH-DOSE, QUADRIVALENT 2022 SHYLA HERNANDEZ ER M LEFT DELTO ID [id number] 197 complet ed [facility] [place] DOSE 2 2020 207 complet ed MOD; [id number]; 1 [facility] [place] [facility] COVID-19 (MODERNA), MRNA, LNP-S, PF, 100 MCG/0.5 ML DOSE 1 2020 207 complet ed MOD; [id number]; 1 [facility] [place] [facility] [facility] [...] Apr 05, 2024 04:09 PM Reporting Lab: [facility] [place] [facility] [address] [facility] [address] Performing Lab: [facility] CENTERTRN [facility]USER[facility] [address] [facility] [address] [facility]N [facility] LIPID PANEL FASTING CHOLESTERO L [MASS/VOLU ME] IN SERUM OR PLASMA 130 mg/dL 04/09 Specimen Type: SERUM No comment entered. Ordering Provider: RONNIE YEPEZ Report Released Date/Time: Apr 05, 2024 04:09 PM Reporting Lab: [facility]ENTERTRN [place] [facility] [address] [facility] [address] Performing Lab: [facility]ENTERUSEROCK[facility] [address] [facility] [address] [facility]RBEAC[facility]N [facility] LIPID PANEL FASTING TRIGLYCERI DE [MASS/VOLU ME] IN SERUM OR PLASMA 92 mg/dL 0 - 150 04/09 Specimen Type: SERUM No comment entered. Ordering Provider: RONNIE YEPEZ Report Released Date/Time: Apr 05, 2024 04:09 PM Reporting Lab: [facility] [place] [facility] [address] [facility] [address] Performing Lab: [facility]ITALRL TRN [facility]ENTERUSEROCK[facility] [address] [facility] [address] [facility]RBEAC[facility] BEHAV[facility] HOSPITALN [facility]USE [facility] LIPID PANEL FASTING CHOLESTERO L IN LDL [MASS/VOLU ME] IN SERUM OR PLASMA BY CALCULATIO N 67 mg/dL 0 - 129 04/09 Specimen Type: SERUM No comment entered. Ordering Provider: RONNIE YEPEZ Report Released Date/Time: Apr 05, 2024 04:09 PM Reporting Lab: [facility] [place] [facility] [address] [facility] [address] Performing Lab: [facility] [place] [place] [facility] [address] [facility] [address] [facility] [place] [facility] LIPID PANEL FASTING CHOLESTERO L.TOTAL/CH OLESTEROL IN HDL [MASS RATIO] IN SERUM OR PLASMA 2.9 04/09 Specimen Type: SERUM No comment entered. Ordering Provider: RONNIE YEPEZ Report Released Date/Time: Apr 05, 2024 04:09 PM Reporting Lab: [facility] [place] [facility] [address] [facility] [address] Performing Lab: [facility] [place] [place] [facility] [address] [facility] [address] [facility]ITALRNORTH ALABAMA [facility]ICAL CENTERTRN [facility]ENTERUSE [facility] LIPID PANEL FASTING CHOLESTERO L IN HDL [MASS/VOLU ME] IN SERUM OR PLASMA 45 mg/dL 40 - 60 04/09 Specimen Type: SERUM No comment entered. Ordering Provider: RONNIE YEPEZ Report Released Date/Time: Apr 05, 2024 04:09 PM Reporting Lab: [facility] [place] [facility] [address] [facility] [address] Performing Lab: [facility] [place] [place] [facility] [address] [facility] [address] [facility]ITALRL TRN [facility] CENTERUSE [facility] URINALYS IS CLEAN CATCH COLOR OF URINE Colorles s 04/09 Specimen Type: URINE Comment: If Glucose = >500 and Ketones are positive, please alert the Physician. Ordering Provider: RONNIE YEPEZ Report Released Date/Time: Apr 05, 2024 04:09 PM Reporting Lab: [facility] [place] [facility] [address] [facility] [address] Performing Lab: [facility] [place] [facility] [address] [facility] [address] [facility] TRN [place] [facility] URINALYS IS CLEAN CATCH APPEARANCE OF URINE Clear 04/09 Specimen Type: URINE Comment: If Glucose = >500 and Ketones are positive, please alert the Physician. Ordering Provider: RONNIE YEPEZ Report Released Date/Time: Apr 05, 2024 04:09 PM Reporting Lab: [facility] [place] [facility] [address] [facility] [address] Performing Lab: [facility] [place] [facility] [address] [facility] [address] [facility] [place] [facility] URINALYS IS CLEAN CATCH GLUCOSE [MASS/VOLU ME] IN URINE Normalmg /dL 04/09 Specimen Type: URINE Comment: If Glucose = >500 and Ketones are positive, please alert the Physician. Ordering Provider: RONNIE YEPEZ Report Released Date/Time: Apr 05, 2024 04:09 PM Reporting Lab: [facility] [place] [facility] [address] [facility] [address] Performing Lab: [facility] [place] [facility] [address] [facility] [address] [facility] [place] [facility] URINALYS IS CLEAN CATCH KETONES [MASS/VOLU ME] IN URINE BY TEST STRIP NEGATIVE mg/dL 04/09 Specimen Type: URINE Comment: If Glucose = >500 and Ketones are positive, please alert the Physician. Ordering Provider: RONNIE YEPEZ Report Released Date/Time: Apr 05, 2024 04:09 PM Reporting Lab: [facility] [place] [facility] [address] [facility] [address] Performing Lab: [facility] [place] [facility] [address] [facility] [address] [facility] [place] [facility] URINALYS IS CLEAN CATCH ERYTHROCYT ES [PRESENCE] IN URINE SEDIMENT BY LIGHT MICROSCOPY NEGATIVE mg/dL 04/09 Specimen Type: URINE Comment: If Glucose = >500 and Ketones are positive, please alert the Physician. Ordering Provider: RONNIE YEPEZ Report Released Date/Time: Apr 05, 2024 04:09 PM Reporting Lab: [facility] [place] [facility] [address] [facility] [address] Performing Lab: [facility] [place] [facility] [address] [facility] [address] [facility] [place] [facility] URINALYS IS CLEAN CATCH PROTEIN [MASS/VOLU ME] IN URINE BY TEST STRIP NEGATIVE mg/dL 04/09 Specimen Type: URINE Comment: If Glucose = >500 and Ketones are positive, please alert the Physician. Ordering Provider: ORNNIE YEPEZ Report Released Date/Time: Apr 05, 2024 04:09 PM Reporting Lab: [facility] [place] [address] [address] Performing Lab: [facility]ITALRNORTH [facility] CENTERTRN [place] [address] [address] [facility]RNOR[facility] CENTERTRN [place] [facility] URINALYS IS CLEAN CATCH NITRITE [PRESENCE] IN URINE NEGATIVE mg/dL 04/09 Specimen Type: URINE Comment: If Glucose = >500 and Ketones are positive, please alert the Physician. Ordering Provider: RONNIE YEPEZ Report Released Date/Time: Apr 05, 2024 04:09 PM Reporting Lab: [facility] [place] [address] [address] Performing Lab: [facility] [place] [address] [address] [facility]ITALRBEACON BEHAVIORAL HOSPITALN [place] [facility] URINALYS IS CLEAN CATCH BILIRUBIN. TOTAL [PRESENCE] IN URINE NEGATIVE mg/dL 04/09 Specimen Type: URINE Comment: If Glucose = >500 and Ketones are positive, please alert the Physician. Ordering Provider: RONNIE YEPEZ Report Released Date/Time: Apr 05, 2024 04:09 PM Reporting Lab: [facility]ITALR[facility]ENTERTRN [place] [address] [address] Performing Lab: [facility]ITALRNOR[facility]ENTERTRN [place] [address] [address] [facility]RNOR[facility] CENTERTRN [place] [facility] URINALYS IS CLEAN CATCH SPECIFIC GRAVITY OF URINE BY REFRACTOME TRY 1.009 1.016 - 1.022 04/09 L Specimen Type: URINE Comment: If Glucose = >500 and Ketones are positive, please alert the Physician. Ordering Provider: RONNIE YEPEZ Report Released Date/Time: Apr 05, 2024 04:09 PM Reporting Lab: [facility] [place] [facility] [address] [facility] [address] Performing Lab: [facility] [place] [facility] [address] [facility] [address] [facility] [place] [facility] URINALYS IS CLEAN CATCH PH OF URINE BY TEST STRIP 6.5 5.0 - 9.0 04/09 Specimen Type: URINE Comment: If Glucose = >500 and Ketones are positive, please alert the Physician. Ordering Provider: RONNIE YEPEZ Report Released Date/Time: Apr 05, 2024 04:09 PM Reporting Lab: [facility] [place] [place] [facility] [address] [facility] [address] Performing Lab: [facility] [place] [facility] [address] [facility] [address] [facility] [place] [facility] URINALYS IS CLEAN CATCH UROBILINOG EN [MASS/VOLU ME] IN URINE BY TEST STRIP Normalmg /dL <2.0 - 2.0 04/09 Specimen Type: URINE Comment: If Glucose = >500 and Ketones are positive, please alert the Physician. Ordering Provider: RONNIE YEPEZ Report Released Date/Time: Apr 05, 2024 04:09 PM Reporting Lab: [facility] [place] [place] [facility] [address] [facility] [address] Performing Lab: [facility] [place] [facility] [address] [facility] [address] [facility] [place] [facility] URINALYS IS CLEAN CATCH LEUKOCYTE ESTERASE [PRESENCE] IN URINE BY TEST STRIP TRACE 04/09 Specimen Type: URINE Comment: If Glucose = >500 and Ketones are positive, please alert the Physician. Ordering Provider: RONNIE YEPEZ Report Released Date/Time: Apr 05, 2024 04:09 PM Reporting Lab: [facility] [place] [facility] [address] [facility] [address] Performing Lab: [facility] [place] [place] [facility] [address] [facility] [address] [facility] [place] [facility] BASIC METABOLI C PANEL (fasting ) UREA NITROGEN [MASS/VOLU ME] IN SERUM OR PLASMA 22 mg/dL 7 - 25 04/09 Specimen Type: SERUM No comment entered. Ordering Provider: RONNIE YEPEZ Report Released Date/Time: Apr 05, 2024 04:09 PM Reporting Lab: [facility]ENTER[facility] [address] [facility] [address] Performing Lab: [facility]ITALRL [facility]ENTERUSEROCK[facility] [address] [facility] [address] [facility]USE [facility] BASIC METABOLI C PANEL (fasting ) GLUCOSE [MASS/VOLU ME] IN SERUM OR PLASMA 104 mg/dL 65 - 100 04/09 H Specimen Type: SERUM No comment entered. Ordering Provider: RONNIE YEPEZ Report Released Date/Time: Apr 05, 2024 04:09 PM Reporting Lab: [facility]ITALRL TRN [facility] CENTERUSE[address] [address] Performing Lab: [facility]ITALRL TRN [facility]ENTERUSE[address] [address] [facility]ITALRNORTH ALABAMA MEDICAL CENTERTRN [facility]USE [facility] BASIC METABOLI C PANEL (fasting ) SODIUM [MOLES/VOL UME] IN SERUM OR PLASMA 138 mmol/L 135 - 145 04/09 Specimen Type: SERUM No comment entered. Ordering Provider: RONNIE YEPEZ Report Released Date/Time: Apr 05, 2024 04:09 PM Reporting Lab: [facility]ITALRL [facility]N [facility]ENTERUSE[address] [address] Performing Lab: [facility] CENTERUSE[address] [address] [facility]ITALRL TRN [facility] CENTERUSE [facility] BASIC METABOLI C PANEL (fasting ) POTASSIUM [MOLES/VOL UME] IN SERUM OR PLASMA 4.5 mmol/L 3.5 - 5.0 04/09 Specimen Type: SERUM No comment entered. Ordering Provider: RONNIE YEPEZ Report Released Date/Time: Apr 05, 2024 04:09 PM Reporting Lab: [facility]ITALRL [facility]N [facility]ENTERUSE[address] [address] Performing Lab: [facility]ITALRL TRN [facility]ENTERUSE[address] [address] [facility]ITALRNORTH ALABAMA MEDICAL CENTERTRN [place] [facility] BASIC METABOLI C PANEL (fasting ) CHLORIDE [MOLES/VOL UME] IN SERUM OR PLASMA 104 mmol/L 100 - 110 04/09 Specimen Type: SERUM No comment entered. Ordering Provider: RONNIE YEPEZ Report Released Date/Time: Apr 05, 2024 04:09 PM Reporting Lab: [facility]ITALRNORTH ALABAMA MEDICAL CENTERTRN [facility]ENTERUSE[address] [address] Performing Lab: [facility]ITALRNORTH AL[facility]AMA MEDICAL CENTERTRN MASSUSE[address] [address] [facility]PITALRBEACON BEHAVIORAL HOSPITALN [place] [facility] BASIC METABOLI C PANEL (fasting ) CARBON DIOXIDE, TOTAL [MOLES/VOL UME] IN SERUM OR PLASMA 28 meq/L 20 - 30 04/09 Specimen Type: SERUM No comment entered. Ordering Provider: RONNIE YEPEZ Report Released Date/Time: Apr 05, 2024 04:09 PM Reporting Lab: [facility]ITALRNORTH ALABAMA MEDICAL CENTERTRN MASSUSE[address] [address] Performing Lab: [facility]ITALRL WSTRN [place] [address] [facility]N [facility]ENTERUSE [facility] BASIC METABOLI C PANEL (fasting ) CREATININE [MASS/VOLU ME] IN SERUM OR PLASMA 0.90 mg/dL 0.50 - 1.40 04/09 Specimen Type: SERUM No comment entered. Ordering Provider: RONNIE YEPEZ Report Released Date/Time: Apr 05, 2024 04:09 PM Reporting Lab: [facility]ITALRL WSTRN [place] [address] Performing Lab: [facility]ITALRL WSTRN [place] [address] [facility]PITALRBEACON BEHAVIORAL HOSPITALN [place] [facility] BASIC METABOLI C PANEL (fasting ) GLOMERULAR FILTRATION RATE/1.73 SQ M.PREDICTE D [VOLUME RATE/AREA] IN SERUM, PLASMA OR BLOOD BY CREATININE -BASED FORMULA (CKD-EPI 2020) 84 mL/min 60 04/09 Specimen Type: SERUM No comment entered. Ordering Provider: RONNIE YEPEZ Report Released Date/Time: Apr 05, 2024 04:09 PM Reporting Lab: [facility] [place] [facility] [address] [facility] [address] Performing Lab: [facility] [place] [facility] [address] [facility] [address] [facility] [place] [facility] LIVER FUNCTION PROTEIN [MASS/VOLU ME] IN SERUM OR PLASMA 7.4 g/dL 6.0 - 8.3 04/09 Specimen Type: SERUM No comment entered. Ordering Provider: RONNIE YEPEZ Report Released Date/Time: Apr 05, 2024 04:09 PM Reporting Lab: [facility] [place] [facility] [address] [facility] [address] Performing Lab: [facility] [place] [facility] [address] [facility] [address] [facility] [place] [facility] LIVER FUNCTION ALBUMIN [MASS/VOLU ME] IN SERUM OR PLASMA 4.3 g/dL 3.5 - 5.0 04/09 Specimen Type: SERUM No comment entered. Ordering Provider: RONNIE YEPEZ Report Released Date/Time: Apr 05, 2024 04:09 PM Reporting Lab: [facility] [place] [facility] [address] [facility] [address] Performing Lab: [facility] [place] [facility] [address] [facility] [address] [facility] [place] [facility] LIVER FUNCTION ALKALINE PHOSPHATAS E [ENZYMATIC ACTIVITY/V OLUME] IN SERUM OR PLASMA 58 U/L 40 - 150 04/09 Specimen Type: SERUM No comment entered. Ordering Provider: RONNIE YEPEZ Report Released Date/Time: Apr 05, 2024 04:09 PM Reporting Lab: [facility] [place] [facility] [address] [facility] [address] Performing Lab: [facility] [place] [facility] [address] [facility] [address] [facility] [place] [facility] LIVER FUNCTION ASPARTATE AMINOTRANS FERASE [ENZYMATIC ACTIVITY/V OLUME] IN SERUM OR PLASMA 21 U/L 5 - 34 04/09 Specimen Type: SERUM No comment entered. Ordering Provider: RONNIE YEPEZ Report Released Date/Time: Apr 05, 2024 04:09 PM Reporting Lab: [facility] [place] [facility] [address] [facility] [address] Performing Lab: [facility] [place] [facility] [address] [facility] [address] [facility]ITALRL WSTRN [place] [facility] LIVER FUNCTION ALANINE AMINOTRANS FERASE [ENZYMATIC ACTIVITY/V OLUME] IN SERUM OR PLASMA 25 U/L 04/09 Specimen Type: SERUM No comment entered. Ordering Provider: RONNIE YEPEZ Report Released Date/Time: Apr 05, 2024 04:09 PM Reporting Lab: [facility] [place] [facility] [address] [facility] [address] Performing Lab: [facility] CENTERUSETS [address] [address] [facility]OSPITALRL TRN [facility] CENTERUSE [facility] LIVER FUNCTION BILIRUBIN. TOTAL [MASS/VOLU ME] IN SERUM OR PLASMA 0.9 mg/dL 0.2 - 1.2 04/09 Specimen Type: SERUM No comment entered. Ordering Provider: RONNIE YEPEZ Report Released Date/Time: Apr 05, 2024 04:09 PM Reporting Lab: [facility] [place] [facility] [address] [facility] [address] Performing Lab: [facility] CENTERUSETS [facility] [address] [facility] [address] [facility]PITALRL [facility]ENTERN [facility]ENTERUSE [facility] CBC AND DIFF (AUTO) LEUKOCYTES [#/VOLUME] IN BLOOD BY AUTOMATED COUNT 5.27 10*3/uL 4.50 - 11.00 04/09 Specimen Type: BLOOD No comment entered. Ordering Provider: RONNIE YEPEZ Report Released Date/Time: Apr 05, 2024 04:09 PM Reporting Lab: [place] [facility] [place] [facility] [address] [facility] [address] Performing Lab: [facility]ENTER[facility]ETS [address] [address] [facility] TRN [facility]ENTERUSE [facility] CBC AND DIFF (AUTO) ERYTHROCYT ES [#/VOLUME] IN BLOOD BY AUTOMATED COUNT 4.15 10*6/uL 4.23 - 5.66 04/09 L Specimen Type: BLOOD No comment entered. Ordering Provider: RONNIE YEPEZ Report Released Date/Time: Apr 05, 2024 04:09 PM Reporting Lab: [facility] [place] [facility] [address] [facility] [address] Performing Lab: [place] [facility] [place] [facility] [address] [facility] [phone] [facility]N [place] [facility] CBC AND DIFF (AUTO) HEMOGLOBIN [MASS/VOLU ME] IN BLOOD 13.2 g/dL 12.8 - 17 04/09 Specimen Type: BLOOD No comment entered. Ordering Provider: RONNIE YEPEZ Report Released Date/Time: Apr 05, 2024 04:09 PM Reporting Lab: [facility]TRN [place] [address] [address] Performing Lab: [facility]RL [place] [address] [address] [facility]ITALRBEACON [facility]ITALN [place] [facility] CBC AND DIFF (AUTO) HEMATOCRIT [VOLUME FRACTION] OF BLOOD BY AUTOMATED COUNT 38.2 39.2 - 50.4 04/09 L Specimen Type: BLOOD No comment entered. Ordering Provider: RONNIE YEPEZ Report Released Date/Time: Apr 05, 2024 04:09 PM Reporting Lab: [facility]ENTERTRN [place] [address] [address] Performing Lab: [place] [facility] [place] [facility] [address] [facility] [address] [facility] [place] [facility] CBC AND DIFF (AUTO) MCV [ENTITIC VOLUME] BY AUTOMATED COUNT 92.0 fL 82 - 99 04/09 Specimen Type: BLOOD No comment entered. Ordering Provider: RONNIE YEPEZ Report Released Date/Time: Apr 05, 2024 04:09 PM Reporting Lab: [facility]ENTERTRN [place] [address] [address] Performing Lab: [facility]ENTERTRN [place] [address] [address] [place] [facility] CBC AND DIFF (AUTO) MCHC [MASS/VOLU ME] BY AUTOMATED COUNT 34.6 g/dL 30.8 - 35.1 04/09 Specimen Type: BLOOD No comment entered. Ordering Provider: RONNIE YEPEZ Report Released Date/Time: Apr 05, 2024 04:09 PM Reporting Lab: [place] [facility] [place] [facility] [address] [facility] [address] Performing Lab: [place] [facility] [place] [facility] [address] [facility] [address] [place] [facility] CBC AND DIFF (AUTO) PLATELETS [#/VOLUME] IN BLOOD BY AUTOMATED COUNT 138 10*3/uL 140 - 360 04/09 L Specimen Type: BLOOD No comment entered. Ordering Provider: RONNIE YEPEZ Report Released Date/Time: Apr 05, 2024 04:09 PM Reporting Lab: [place] [facility] [address] [facility] [address] Performing Lab: [place] [facility] [address] [facility] [address] [facility]RL W[facility] [place] [facility] CBC AND DIFF (AUTO) ERYTHROCYT E DISTRIBUTI ON WIDTH [RATIO] BY AUTOMATED COUNT 13.0 12.0 - 16.0 04/09 Specimen Type: BLOOD No comment entered. Ordering Provider: RONNIE YEPEZ Report Released Date/Time: Apr 05, 2024 04:09 PM Reporting Lab: [facility] [place] [facility] [address] [facility] [address] Performing Lab: [place] [facility] [address] [facility] [address] [place] [facility] CBC AND DIFF (AUTO) MONOCYTES [#/VOLUME] IN BLOOD BY AUTOMATED COUNT 0.49 10*3/uL 0.30 - 1.10 04/09 Specimen Type: BLOOD No comment entered. Ordering Provider: RONNIE YEPEZ Report Released Date/Time: Apr 05, 2024 04:09 PM Reporting Lab: [place] [facility] [address] [facility] [address] Performing Lab: [facility] [place] [facility] [address] [facility] [address] [facility] [place] [facility] CBC AND DIFF (AUTO) MCH [ENTITIC MASS] BY AUTOMATED COUNT 31.8 pg 26.2 - 32.6 04/09 Specimen Type: BLOOD No comment entered. Ordering Provider: RONNIE YEPEZ Report Released Date/Time: Apr 05, 2024 04:09 PM Reporting Lab: [facility] [place] [facility] [address] [facility] [address] Performing Lab: [place] [facility] [place] [facility] [address] [facility] [address] [place] [facility] [place] [facility] CBC AND DIFF (AUTO) NEUTROPHIL S/100 LEUKOCYTES IN BLOOD BY AUTOMATED COUNT 56.7 43.7 - 75.8 04/09 Specimen Type: BLOOD No comment entered. Ordering Provider: RONNIE YEPEZ Report Released Date/Time: Apr 05, 2024 04:09 PM Reporting Lab: [place] [facility] [address] [facility] [address] Performing Lab: [facility] [place] [facility] [address] [facility] [address] [facility] [place] [facility] CBC AND DIFF (AUTO) LYMPHOCYTE S/100 LEUKOCYTES IN BLOOD BY AUTOMATED COUNT 28.1 14.0 - 42.3 04/09 Specimen Type: BLOOD No comment entered. Ordering Provider: RONNIE YEPEZ Report Released Date/Time: Apr 05, 2024 04:09 PM Reporting Lab: [facility] [place] [facility] [address] [facility] [address] Performing Lab: [facility] [place] [facility] [address] [facility] [address] [facility] [place] [facility] CBC AND DIFF (AUTO) MONOCYTES/ 100 LEUKOCYTES IN BLOOD BY AUTOMATED COUNT 9.3 5.1 - 13.7 04/09 Specimen Type: BLOOD No comment entered. Ordering Provider: RONNIE YEPEZ Report Released Date/Time: Apr 05, 2024 04:09 PM Reporting Lab: [facility] [place] [facility] [address] [facility] [address] Performing Lab: [facility] [place] [facility] [address] [facility] [address] [facility] [place] [facility] CBC AND DIFF (AUTO) EOSINOPHIL S/100 LEUKOCYTES IN BLOOD BY AUTOMATED COUNT 3.8 0.4 - 6.8 04/09 Specimen Type: BLOOD No comment entered. Ordering Provider: RONNIE YEPEZ Report Released Date/Time: Apr 05, 2024 04:09 PM Reporting Lab: [facility] [place] [facility] [address] [facility] [address] Performing Lab: [facility] [place] [facility] [address] [facility] [address] [place] [facility] [place] [facility] CBC AND DIFF (AUTO) BASOPHILS/ 100 LEUKOCYTES IN BLOOD BY AUTOMATED COUNT 0.8 0.1 - 2.0 04/09 Specimen Type: BLOOD No comment entered. Ordering Provider: RONNIE YEPEZ Report Released Date/Time: Apr 05, 2024 04:09 PM Reporting Lab: [facility] [place] [address] [address] Performing Lab: [facility] [place] [facility] [address] [facility] [address] [facility] [place] [facility] CBC AND DIFF (AUTO) NEUTROPHIL S [#/VOLUME] IN BLOOD BY AUTOMATED COUNT 2.99 10*3/uL 2.20 - 7.60 04/09 Specimen Type: BLOOD No comment entered. Ordering Provider: RONNIE YEPEZ Report Released Date/Time: Apr 05, 2024 04:09 PM Reporting Lab: [facility] [place] [facility] [address] [facility] [address] Performing Lab: [facility] [place] [facility] [address] [facility] [address] [facility] [place] [facility] CBC AND DIFF (AUTO) LYMPHOCYTE S [#/VOLUME] IN BLOOD BY AUTOMATED COUNT 1.48 10*3/uL 1.00 - 3.20 04/09 Specimen Type: BLOOD No comment entered. Ordering Provider: RONNIE YEPEZ Report Released Date/Time: Apr 05, 2024 04:09 PM Reporting Lab: [facility] [place] [facility] [address] [facility] [address] Performing Lab: [place] [facility] [place] [facility] [address] [facility] [address] [facility] [place] [facility] CBC AND DIFF (AUTO) EOSINOPHIL S [#/VOLUME] IN BLOOD BY AUTOMATED COUNT 0.20 10*3/uL 0.03 - 0.44 04/09 Specimen Type: BLOOD No comment entered. Ordering Provider: RONNIE YEPEZ Report Released Date/Time: Apr 05, 2024 04:09 PM Reporting Lab: [facility] [place] [facility] [address] [facility] [address] Performing Lab: [place] [address] [address] [place] [facility] [place] [facility] CBC AND DIFF (AUTO) BASOPHILS [#/VOLUME] IN BLOOD BY AUTOMATED COUNT 0.04 10*3/uL 0.01 - 0.13 04/09 Specimen Type: BLOOD No comment entered. Ordering Provider: RONNIE YEPEZ Report Released Date/Time: Apr 05, 2024 04:09 PM Reporting Lab: [place] [facility] [place] [address] [address] Performing Lab: [place] [facility] [place] [facility] [address] [facility] [address] [facility] [place] [facility] CBC AND DIFF (AUTO) IMMATURE GRANULOCYT ES/100 LEUKOCYTES IN BLOOD BY AUTOMATED COUNT 1.3 0.0 - 0.7 04/09 H Specimen Type: BLOOD No comment entered. Ordering Provider: RONNIE YEPEZ Report Released Date/Time: Apr 05, 2024 04:09 PM Reporting Lab: [place] [facility] [place] [address] [address] Performing Lab: [place] [address] [address] [facility]ITALRNORTH ALABAMA MEDICAL CENTERTRN [facility]ENTERUSE [facility] CBC AND DIFF (AUTO) IMMATURE GRANULOCYT ES [#/VOLUME] IN BLOOD 0.07 10*3/uL 0.00 - 0.06 04/09 H Specimen Type: BLOOD No comment entered. Ordering Provider: RONNIE YEPEZ Report Released Date/Time: Apr 05, 2024 04:09 PM Reporting Lab: [facility]ITALN [facility]ENTERUSE[address] [address] Performing Lab: [facility]PITALRL TRN [facility]ENTERUSE[address] [address] [facility]N [facility]ENTERUSE [facility] CBC AND DIFF (AUTO) NRBC % 0.0 0.0 - 0.0 04/09 Specimen Type: BLOOD No comment entered. Ordering Provider: RONNIE YEPEZ Report Released Date/Time: Apr 05, 2024 04:09 PM Reporting Lab: [facility]OSPITALN [address] [address] Performing Lab: [facility]PITALRL TRN [facility]ENTERUSE[address] [address] [facility]ITALN [facility]ENTERUSE [facility] CBC AND DIFF (AUTO) NRBC, ABS 0.00 10*3/uL 0.00 - 0.00 04/09 Specimen Type: BLOOD No comment entered. Ordering Provider: RONNIE YEPEZ Report Released Date/Time: Apr 05, 2024 04:09 PM Reporting Lab: [facility]ITALN [facility]ENTERUSE[address] [address] Performing Lab: [facility]ITALRNORTH ALABAMA MEDICAL CENTERTRN [facility]ENTERUSE[address] [address] [facility]ITALN [facility]ENTERUSE [facility] MICROSCO PIC AUTOMATE D, URINE LEUKOCYTES [#/AREA] IN URINE SEDIMENT BY MICROSCOPY HIGH POWER FIELD 0-5/[HPF ] 0 - 5 04/09 Specimen Type: URINE Comment: If Glucose = >500 and Ketones are positive, please alert the Physician. Ordering Provider: RONNIE YEPEZ Report Released Date/Time: Apr 05, 2024 04:09 PM Reporting Lab: [facility]PITALRBEACON BEHAVIORAL HOSPITALN [place] [place] [address] Performing Lab: [facility] [address] [facility] [address] [facility] MICROSCO PIC AUTOMATE D, URINE ERYTHROCYT ES [#/AREA] IN URINE SEDIMENT BY MICROSCOPY HIGH POWER FIELD 0-2/[HPF ] 0 - 3 04/09 Specimen Type: URINE Comment: If Glucose = >500 and Ketones are positive, please alert the Physician. Ordering Provider: RONNIE YEPEZ Report Released Date/Time: Apr 05, 2024 04:09 PM Reporting Lab: [address] [address] Performing Lab: [address] [address] [facility] CREATINI NE EGFR PANEL CREATININE [MASS/VOLU ME] IN SERUM OR PLASMA 1.10 mg/dL 0.5 - 1.5 07/12 Specimen Type: PLASMA No comment entered. Ordering Provider: EMMY HARTMANN Report Released Date/Time: Jul 11, 2023 09:21 AM Reporting Lab: [facility] [address] [facility] [address] Performing Lab: [facility] [address] [facility] [id number] [place] [address] CREATINI NE EGFR PANEL GLOMERULAR FILTRATION RATE/1.73 SQ M.PREDICTE D [VOLUME RATE/AREA] IN SERUM, PLASMA OR BLOOD BY CREATININE -BASED FORMULA (CKD-EPI 2020) 66 60 07/12 Specimen Type: PLASMA No comment entered. Ordering Provider: EMMY HARTMANN Report Released Date/Time: Jul 11, 2023 09:21 AM Reporting Lab: [facility] [address] [facility] [address] Performing Lab: [facility] [address] [facility] [address] [facility] TSH THYROTROPI N [UNITS/VOL UME] IN SERUM OR PLASMA 3.65 u[IU]/mL 0.35 - 5.00 10/23 /2023 Specimen Type: SERUM No comment entered. Ordering Provider: RONNIE YEPEZ Report Released Date/Time: Apr 07, 2023 04:15 PM Reporting Lab: [facility] [place] [facility] [address] [facility] [address] Performing Lab: [facility] [place] [facility] [address] [facility] [address] [facility] [place] [facility] LIVER FUNCTION PROTEIN [MASS/VOLU ME] IN SERUM OR PLASMA 7.3 g/dL 6.0 - 8.3 04/09 Specimen Type: SERUM No comment entered. Ordering Provider: RONNIE YEPEZ Report Released Date/Time: Apr 07, 2023 04:15 PM Reporting Lab: [facility] [place] [facility] [address] [facility] [address] Performing Lab: [facility] [place] [facility] [address] [facility] [address] [place] [facility] LIVER FUNCTION ALBUMIN [MASS/VOLU ME] IN SERUM OR PLASMA 4.2 g/dL 3.5 - 5.0 04/09 Specimen Type: SERUM No comment entered. Ordering Provider: RONNIE YEPEZ Report Released Date/Time: Apr 07, 2023 04:15 PM Reporting Lab: [facility] [place] [facility] [address] [facility] [address] Performing Lab: [facility] [place] [facility] [address] [facility] [address] [facility] [place] [facility] LIVER FUNCTION ALKALINE PHOSPHATAS E [ENZYMATIC ACTIVITY/V OLUME] IN SERUM OR PLASMA 63 U/L 40 - 150 04/09 Specimen Type: SERUM No comment entered. Ordering Provider: RONNIE YEPEZ Report Released Date/Time: Apr 07, 2023 04:15 PM Reporting Lab: [facility] [place] [facility] [address] [facility] [address] Performing Lab: [facility] [place] [facility] [address] [facility] [address] [facility] [place] [facility] LIVER FUNCTION ASPARTATE AMINOTRANS FERASE [ENZYMATIC ACTIVITY/V OLUME] IN SERUM OR PLASMA 21 U/L 5 - 34 04/09 Specimen Type: SERUM No comment entered. Ordering Provider: RONNIE YEPEZ Report Released Date/Time: Apr 07, 2023 04:15 PM Reporting Lab: [facility]ITALRL TRN [facility] CENTERUSETS [facility] [address] [facility] [address] Performing Lab: [facility]PITALRL TRN [facility]ENTERUSEROCK[facility] [address] [facility] [address] [facility]RL TRN [facility]ENTERUSE [facility] LIVER FUNCTION ALANINE AMINOTRANS FERASE [ENZYMATIC ACTIVITY/V OLUME] IN SERUM OR PLASMA 21 U/L 04/09 Specimen Type: SERUM No comment entered. Ordering Provider: RONNIE YEPEZ Report Released Date/Time: Apr 07, 2023 04:15 PM Reporting Lab: [facility]PITALRNORTH ALABAMA MEDICAL CENTERTRN [facility]ENTERUSEROCKLAND [facility] [address] [facility] [address] Performing Lab: [facility]OSPITALRL TRN [facility]ENTERUSEROCKLAND [facility] [address] [facility] [address] [facility]N [facility]ENTERUSE [facility] LIVER FUNCTION BILIRUBIN. TOTAL [MASS/VOLU ME] IN SERUM OR PLASMA 0.9 mg/dL 0.2 - 1.2 04/09 Specimen Type: SERUM No comment entered. 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 Vital Sign Value Date Comments Source PAIN 0 07/21/2024 14:27:13 [facility]ITALRBEACON [facility]IOR[facility] HOSPITALN [facility] TEMPERATURE 98.4 07/21/2024 14:27:13 [facility] SYSTOLIC BLOOD PRESSURE 164 07/14/19 25 12:40:38 [facility] DIASTOLIC BLOOD PRESSURE 88 025 12:40:38 [facility] PULSE OXIMETRY 98 07/14/2024 12:40:38 [facility] WEIGHT 229 07/14/2024 12:40:38 [facility] BMI 31 kg/m2 07/14/2024 12:40:38 [facility] PAIN 0 07/14/2024 12:40:38 [facility] HEIGHT 72 07/14/2024 12:40:38 [facility] TEMPERATURE 96.1 07/14/2024 12:40:38 [facility] PULSE 67 07/14/2024 12:40:38 [facility] RESPIRATION 18 07/14/2024 12:40:38 [facility] SYSTOLIC BLOOD PRESSURE 140 04/21/20 24 13:29:02 [facility] [place] [facility] DIASTOLIC BLOOD PRESSURE 80 024 13:29:02 [facility] [place] [facility] PULSE OXIMETRY 98 04/21/2024 13:29:02 [facility] [...] 0 04/18/2024 08:27:34 [facility] [place] [facility] HEIGHT 72 04/18/2024 08:27:34 [facility] [...] to the last 18 months, not all OR inpatient encounters are included; 2) Encounters from the Department of [facility] facilities going backup to 280 months. Location Location Details Encounter Type Encounter Number Reason For Visit Attending Provider ADM Date DC Date Status Disposition Source [facility] [place] [facility] Outpatient Encounter [id number] 04/10 [facility] [place] [facility] [facility] OFFICE O/P EST LOW 20-29 MIN [id number] Diagnos is: ICD-10- CM I10 Essenti al (primar y) hyperte nsJESSICA Jordan RD D 04/16 [facility] [place] [facility] [place] [place] [facility] OFF/OP EST MAY X REQ PHY/QHP [id number] Diagnos is: ICD-10- CM Z23 Encount er for immuniz ation JESSICA YEPEZ RD D 04/25 [facility] [place] [facility] [place] [facility] OFFICE O/P EST LOW 20-29 MIN [id number] Diagnos is: ICD-10- CM I89.0 Lymphed milo, not elsewhe re classif ied SCOTT SANTIAGO D 05/22 [facility] [place] [facility] [place] [facility] Outpatient Encounter [id number] 06/04 [facility] [place] [place] [facility] [place] [facility] OFFICE O/P EST SF 10-19 MIN [id number] Diagnos is: ICD-10- CM R60.9 Edema, unspeci fied SCOTT SANTIAGO RLES D 06/05 [facility] [place] [facility] OFFICE O/P NEW MOD 45-59 MIN [id number] Diagnos is: ICD-10- CM I87.2 Venous insuffi ciency (chroni c) (periph eral) TOBIAS MEEHAN MD 06/07 [facility] ORTHOTIC MGMT&TRAIN G 1ST ENC [id number] Diagnos is: ICD-10- CM R60.0 Localiz ed edema Ruddy ESTRADA ACK 06/07 [facility] Outpatient Encounter [id number] Ruddy ESTRADA ACK 06/[facility]P EST LOW 20 MIN [id number] Diagnos is: ICD-10- CM I89.0 Lymphed milo, not elsewhe re classif ied SA JEF ALMAGUER 07/12 [facility] Outpatient Encounter [id number] EMA BAKER 08/16 [facility] [place] [facility] OFFICE O/P EST MOD 30 MIN [id number] Diagnos is: ICD-10- CM M21.371 Foot drop, right foot SCOTT SANTIAGO D 10/01 [facility] [place] [facility] Outpatient Encounter [id number] 10/03 [facility] [place] [facility] Outpatient Encounter [id number] SCOTT SANTIAGO D 11/29 [facility] [place] [facility] [place] [facility] Outpatient Encounter [id number] 12/10 [facility] [place] [facility] [facility] [place] [facility] OFFICE O/P EST LOW 20 MIN [id number] Diagnos is: ICD-10- CM R60.0 Localiz ed edema SCOTT SANTIAGO RLENDY D 12/30 [facility] [place] [facility] [facility] [place] [facility] DIABETIC CUSTOM MOLDED SHOE [id number] Diagnos is: ICD-10- CM M20.40 Other hammer toe(s) (acquir ed), unspeci fied foot GALA DE LA CRUZ TT ANJUM 01/16 [facility] [place] [facility] [facility] [place] [facility] DIABETIC CUSTOM MOLDED SHOE [id number] Diagnos is: ICD-10- CM M21.371 Foot drop, right foot ROSMERY,DI JUAN M 02/04 [facility] [place] [facility] [facility] [place] [facility] OFFICE O/P EST LOW 20 MIN [id number] Diagnos is: ICD-10- CM I10 Essenti al (primar y) hyperte JESSICA Fleming RD D 04/18 [facility] [place] [facility] [facility] [place] [facility] OFFICE O/P EST MOD 30 MIN [id number] Diagnos is: ICD-10- CM I10 Essenti al (primar y) hyperte JESSICA Fleming RD D 04/18 [facility] OFF/OP CONSLTJ NEW/[place] 55 [id number] Diagnos is: ICD-10- CM M21.371 Foot drop, right foot ZHENGJOEY FORTINO THI 04/21 [facility] Outpatient Encounter [id number] 04/21 [facility] Outpatient Encounter [id number] 05/05 [facility] [place] [facility] OFFICE O/P EST SF 10 MIN [id number] Diagnos is: ICD-10- CM I89.0 Lymphed milo, not elsewhe re classif ied MAXINE FAJARDO MD 07/14 [facility] MGMT&TRAIN G 1ST ENC [id number] [id number] Diagnos is: ICD-10- CM I87.2 Venous insuffi ciency (chroni c) (periph eral) COLTON SHAHID MARK 07/14 [facility] [place] [facility] Outpatient Encounter [id number] 07/17 [facility] [place] [facility] [facility] [place] [facility] OFFICE O/P EST LOW 20 MIN [id number] Diagnos is: ICD-10- CM M21.371 Foot drop, right foot FOSTER,SCOTT RLES D 07/21 [facility] [place] [facility] OFFICE O/P EST SF 10 MIN [id number] Diagnos is: ICD-10- CM M21.371 Foot drop, right foot FOSTER,SCOTT RLES D 07/28 [facility] [facility] Social History Combined list of available smoking, tobacco, and other social history from Department of Defense and [facility] Affairs facilities. Social History Type Response Date Comment Sourc e Tobacco smoking status [facility] NEVER USED [facility]24 [facility] [place] [facility] [place] [facility] History [facility] tobacco use OR-TOBACCO NEVER USED 05/09/2022 [facility] [place] [facility] History of tobacco use OR-TOBACCO NEVER USED 05/10/2021 [facility] [place] [facility]2020 [facility] [place] [facility] History of tobacco use OR-TOBACCO NEVER USED 04/15/2018 [facility] [place] [facility] History of tobacco use LIFETIME NON-[facility]BACCO [facility] [place] [facility] History of tobacco use LIFETIME NON-TOBACCO [facility]ER [facility] [place] [facility] History of tobacco use FORMER SMOKER - <100 LIFETIME [facility]IGARETTES [facility] [place] [facility] History of tobacco use HISTORY OF SMOKING [facility] [place] [facility] History of tobacco use HISTORY OF SMOKING [facility] [place] [facility] Plan of Care List of future care activities from [facility] facilities. Additional future care activities may be listed in the Assessment and Plan section. Date/Time Care Activity Care Activity Detail Facili ty 01/19/2025 AMBULATORY - MEDICINE AMBULATORY - MEDICI [facility] [place] [facility]
== END 2024-09-09 08:45 | disposition home or self-care (01) ==
LOC: HO.ACS 08:23
PROVIDERS: PCP Internal Medicine; Visit Provider Internal Medicine Medical Oncology
DX: Z79.01 Long term (current) use of anticoagulants (principal)

== ENCOUNTER → 2024-09-09 08:23 | Outpatient (BNVA) | payer MEDICARE, SELFPAY | PROVIDERS: PCP Internal Medicine; Visit Provider Internal Medicine Medical Oncology | DX: I48.20 Chronic atrial fibrillation, unspecified (principal); Z79.01 Long term (current) use of anticoagulants; Z51.81 Encounter for therapeutic drug level monitoring | CPT/HCPCS: 85610; 99211 ==

== ENCOUNTER 2024-10-02 15:19 | Outpatient (AMB) | payer MEDICARE, SELFPAY ==
--- NOTE | 2024-10-02 15:57 | AM.OFFVISMDC ---
Intake Vital Signs 10/02/24 15:59 Height 5 ft 11 in Weight 228 lb 8 oz BMI 31.9 BP 132/68 Blood Pressure Location Lt brachial Position Sitting Pulse 65 Pulse Source Pulse Oximeter Temp 97.3 F Temp Source Temporal Artery Scan Pulse Oximetry (%) 96 Oxygen Delivery Method Room Air Intake Visit Reasons: SWV Intake Note: Patient is here for an Annual Wellness Visit. Geospatial Program Management Officer Required: No Commercial Ocean Clammer: Commercial Ocean Clammer offered & declined Accompanied by: Self / Same As Patient Allergies doxycycline [Doxycycline] Allergy (Severe, Verified 10/04/24 19:49) HIVES lisinopril Allergy (Severe, Verified 10/04/24 19:49) RASH Medication List - Last Reconciled 10/04/24 by Truman Nettles MD doxepin 3 mg PO BEDTIME PRN fluticasone propionate 50 mcg/actuation (Flonase Allergy Relief) 1 spray intranasal DAILY furosemide 20 mg PO DAILY 90 days levothyroxine 75 mcg PO QAM metoprolol succinate ER 25 mg PO DAILY simvastatin 20 mg PO BEDTIME warfarin (Jantoven) See Protocol 7.5 mg QD orally QD; 90 days warfarin (Jantoven) See Protocol 10 mg X 6-7 DAYS/ WEEK WARFARIN DOSE PER INR HPI SWV HPI Details Patient presents for a subsequent wellness visit. [facility] Medical History Insomnia COVID-19 virus infection Hyperparathyroidism Basal cell carcinoma of skin Tubular adenoma of colon Sick sinus syndrome Hypercholesterolemia Hypothyroid Atrial fibrillation Monoclonal paraproteinemia Hypertension Surgical History History of parathyroidectomy Family History Father Past heart attack Social History Housing: House Alcohol intake: current Alcohol intake frequency: holidays/special occasions only Alcohol type: wine Patient Tobacco Use Status: Never used Tobacco e-Cigarette/Vaping Use: Never Used Second Hand Smoke Exposure: No service: Yes Current occupational status: retired Current occupational exposures/hazards: No Cognitive needs: No Hearing needs: No Vision needs: Yes Questionnaire Medicare Wellness Checkup What is your age?: 78 or older What gender do you identify with?: male During the past 4 weeks, how much have you been bothered by emotional problems such as feeling anxious, depressed, irritable, sad or downhearted, and blue?: not at all During the past 4 weeks, has your physical & emotional health limited your social activities with family, friends, neighbors, or groups?: not at all During the past 4 weeks, how much bodily pain have you generally had?: no pain During the past 4 weeks, was someone available to help you if you needed & wanted help?: yes, as much as I wanted During the past 4 weeks, what was the hardest physical activity you could do for at least 2 minutes?: heavy Can you get to places out of walking distance without help? (For eg., can you travel alone on buses, taxis or drive your car?): Yes Can you go shopping for groceries or clothes without someone's help?: Yes Can you prepare your own meals?: Yes Can you do your housework without help?: Yes Because of any health problems, do you need the help of another person with your personal care needs such as eating, bathing, dressing or getting around the house?: No Can you handle your own money without help?: Yes During the past 4 weeks, how would you rate your health in general?: good During the past 4 weeks how have things been going for you?: very well; could hardly better Are you having difficulties driving your car?: no Do you always fasten your seat belt when you are in a car?: yes, usually During past 4 weeks, have you been bothered by the following: never: Falling or dizzy when standing up, Sexual problems?, Trouble eating well?, Teeth or denture problems?, Problems using the telephone? and Tiredness or fatigue? Have you fallen 2 or more times in the past year?: No Are you afraid of falling?: No Are you a smoker?: no During the past 4 weeks, how many drinks of wine, beer, or other alcoholic beverages did you have?: no alcohol at all Do you exercise for about 20 minutes 3 or more times a week?: yes, all the time Have you been given information to help with the following?: no: Hazards in your house that might hurt you? and no: Keeping track of your medications? How often do you have trouble taking medicines the way you have been told to take them?: I always take medicine as prescribed How confident are you that you can control & manage most of your health problems?: very confident What is your race?: White Mini Mental State Exam (MMSE) Orientation What is the (year) (season) (date) (day) (month)?: year, season and date Where are we (state) (county) (town or city) (hospital) (floor)?: state, county and town or city Attention & Calculation (CHOOSE ONE) Ask pt to begin with 100 & count backward by 7. Stop after 5 repeats. If pt cannot ask them to spell the word WORLD backward.: 93 and 86 Score Score: 8 Activity of Daily Living Bathing - sponge bath, tub bath or shower: receives no assistance (gets in/out by self, if usual bathing means Dressing - getting clothes from closets & drawers, including inner/outer garments & fasteners.: gets clothes & gets completely dressed without help Toileting - going to the 'toilet room' for urine/bowel elimination & cleaning self/arranging clothes: goes to toilet room, cleans self, arranges clothes without help Transfer: moves in & out of bed and chair without help (may use support object) Feeding: feeds self without help Total Score: 0 Information obtained from: patient Using telephone: independent Traveling: independent Shopping: independent Preparing meals: independent Housework: independent Taking medicine: independent Managing money: independent PHQ-9 Over the last 2 weeks, how often have you been bothered by any of the following problems? 1. Little interest or pleasure in doing things: not at all 2. Feeling down, depressed, or hopeless: not at all 3. Trouble falling or staying asleep, or sleeping too much: more than half the days 4. Feeling tired or having little energy: not at all 5. Poor appetite or overeating: not at all 6. Feeling bad about yourself - or that you are a failure or have let yourself or your family down: not at all 7. Trouble concentrating on things, such as reading the newspaper or watching television: not at all 8. Moving or speaking so slowly that other people could have noticed. Or the opposite - being so fidgety or restless that you have been moving around a lot more than usual: not at all 9. Thoughts that you would be better off or of hurting yourself in some way: not at all Total score: 2 Depression Screening Interpretation: Negative Depression Screening Done: Yes Source: Developed by Drs. Ranjit Hancock, Franki Chahal and colleagues, with an educational fawad from [employer]. Thrive Questionnaire Date Thrive assessed: 10/02/24 I am a: Patient What is your living situation today?: I have a steady place to live Within the past 12 months, did the food you bought not last and you didn't have the money to get more?: Never true Within the past 12 months, did you worry whether your food would run out before you got money to buy more?: Never true Do you have trouble paying for medicines?: No Do you have trouble getting transportation to medical appointments?: No Do you have trouble paying your heating and electricity bill?: No Do you have trouble taking care of your child, family member or friend?: No Do you have trouble with day-to-day activities such as bathing, preparing meals, shopping, managing finances, etc.?: No Are you currently unemployed and looking for a job?: No Are you interested in more education?: No Please select the resources that you would like help with: None Currently or been in a relationship where the following occur: No concerns reported THRIVE Score: 0 YAMEL-7 AMB Questionnaire YAMEL-7 Date YAMEL - 7 assessed: 10/02/24 Feeling nervous, anxious, or on edge: 0 = Not at all Not being able to stop or control worryin = Not at all Worrying too much about different things: 0 = Not at all Trouble relaxin = Not at all Being so restless that it is hard to sit still: 0 = Not at all Becoming easily annoyed or irritable: 0 = Not at all Feeling afraid as if something awful might happen: 0 = Not at all Total YAMEL-7 score (0-4 normal; 5-9 mild; 10-14 moderate; 15-21 severe): 0 Source: Developed by Nancy Fulton Kurt Kroenke and colleagues, with an educational fawad from [employer]. AUDIT C Alcohol Use Questionnaire (AUDIT-C) 1. How often do you have a drink containing alcohol?: Never Total Score: 0 Physical Exam Vital Signs: Last Vital Signs Temp 97.3 F 10/02/24 15:59 Pulse 65 10/02/24 15:59 BP 132/68 10/02/24 15:59 Pulse Ox 96 10/02/24 15:59 Oxygen Delivery Method Room Air 10/02/24 15:59 BMI result Body Mass Index 31.9 Balance: normal Romberg: Negative Tandem Walk: Able to Walk and Turn: Able to Rise from sit to stand:Able to Hearing Whisper test:Pass [place] [facility] and personal screening program discussed with patient. Assessment & Plan Assessment & Plan (1) Annual physical exam: Code(s): Z00.00 - Encounter for general adult medical examination without abnormal findings Plan: As above Quality Reporting (2019) Depression/Bipolar (159/160/161/177) PHQ-9: Total score: 2 Coding Level of Care Code Medicare Subsequent (G0439) Diagnoses Annual physical exam Z00.00 Advance Care Planning Advance Care Planning discussion: Exists, not on file Date of discussion: 10/02/24 Who was present: Patient
[2024-10-02 15:59] VITALS: BP 132/68; PULSE 65; TEMP 36.3; O2SAT 96; BMI 31.9
--- OUTSIDE RECORDS SUMMARY | 2024-10-02 18:01 | XMS_ITS ---
Author Name [facility] [place] [facility] Address [address] [place] [address] Care Team Providers Care Pharmacy Assistant Name Role Phone TERRY YEPEZ Primary Care [...] Relationship to Policy Celeste RUSS [place] SUPPLEMEN RYAN PSUED O MEDEX BRONZ E October 17, 2003 [id number] [phone] OCTAVIA,DAKOTA CHARD PATIENT [place]BS [place] SUPPLEMEN RYAN MEDEX BRONZ E October 17, 2003 [id number] OCTAVIA,RI CHARD PATIENT BCBS [place] MEDICARE SUPPLEMEN RYAN MEDEX BRONZ E October 17, 2003 [id number] DAKOTA DUDLEY CHARD PATIENT BCBS OF [facility] MEDICARE SUPPLEMEN RYAN PSUED O MEDEX BRONZ E October 17, 2003 [id number] OCTAVIA,RI CHARD PATIENT MEDICARE (WNR) MEDICARE (M) PART A October 17, 2003 PART A [id number] DAKOAT DUDLEY PATIENT MEDICARE (WNR) MEDICARE (M) PART B October 17, 2003 PART B [id number] DAKOTA DUDLEY PATIENT MEDICARE (WNR) MEDICARE (M) PART A October 17, 2003 PART A [id number] DAKOTA DUDLEYD PATIENT MEDICARE (WNR) MEDICARE (M) PART B October 17, 2003 PART B [id number] DAKOTA DUDLEY PATIENT MEDICARE (WNR) MEDICARE (M) PART A October 17, 2003 PART A [id number] [phone] DAKOTA DUDLEY PATIENT MEDICARE (WNR) MEDICARE (M) PART B October 17, 2003 PART B [id number] [phone] DAKOTA DUDLEY PATIENT MEDICARE (WNR) MEDICARE (M) PART A October 17, 2003 PART A [id number] DAKOTA DUDLEY PATIENT MEDICARE (WNR) MEDICARE (M) PART B October 17, 2003 PART B [id number] DAKOTA DUDLEY PATIENT Selected Encounter This section includes the information on record at [place] for the Encounter. Date/Time Encounter Type Encounter Description Reason Provider Source Jul 21, 2024 02:30 PM OFFICE O/P EST LOW 20 MIN PODIATRY ICD-10-CM M21.371 Foot drop, right foot TIMUR NAVA [facility] Encounter Template Text not used by [place] Assessments - Encounter Diagnoses This section includes the primary and secondary diagnoses documented for the Encounter. Date/Time Primary/Secondary Diagnosis Diagnosis Name Provider Source Aug 28, 2024 12:25 PM PRIMARY Foot drop, right foot [facility] [place] [facility] Aug 28, 2024 12:25 PM SECONDARY Generalized edema [facility] N[facility] [place] [facility] Plan of Treatment: Future Appointments (+ 6 months) and Future Tests (+/- 45 days) The Plan of Treatment section includes future care activities for the patient from all [place] treatmentfacilities. This section includes future appointments and future orders which are active, pending or scheduled. Future Appointments This section includes appointments that were scheduled to occur 6 months from the date of the Encounter, up to a maximum of 20 appointments. The data comes from all [place] treatment facilities. Appointment Date/Time Appointment Type Appointme nt Facility Name Jul 28, 2024 01:00 PM AMBULATORY - MEDICINE [facility] [facility] Vital Signs: All taken on the encounter date This section contains inpatient and outpatient Vital Signs collected on the date of the Encounter. Date/Time Temperature Pulse Blood Pressure Respiratory Rate SP02 Pain Height Weight Body Mass Index Source Jul 21, 2024 02:27 PM 98.4 0 [place] [facility] [place] [facility] Social History: Smoking Status (Most current) and Tobacco Use (All prior to encounter date) This section includes the most current, and the historical, smoking and tobacco- related health factors from the [place] facility where the Encounter took place. Current Smoking Status This section includes the most current smoking, or tobacco-related health factor, from the [place] facility where the Encounter took place. Date/Time Current Smoking Status Comment Facil ity Apr 18, 2024 08:30 AM VA-TOBACCO NEVER USED [facility] [place] [facility] Tobacco Use History This section includes a history of the smoking, or tobacco-related health factors, that were collected on or before the date of the Encounter. The data comes from the [place] facility where the Encounter took place. Date/Time Smoking Status/Tobacco Use Comment F acility Apr 16, 2023 09:30 AM VA-TOBACCO NEVER USED [facility] [place] [facility] May 09, 2022 09:00 AM VA-TOBACCO NEVER USED [facility] [place] [facility] May 10, 2021 08:00 AM VA-TOBACCO NEVER USED [facility] [facility] May 17, 2020 03:00 PM VA-TOBACCO NEVER USED [facility] [place] [facility] Apr 15, 2018 09:31 AM VA-TOBACCO NEVER USED [facility] [place] [facility] Apr 17, 2017 08:56 AM LIFETIME NON-TOBACCO USER [facility] [place] [facility] Apr 13, 2016 08:54 AM LIFETIME NON-TOBACCO USER [facility] [place] [facility] Apr 20, 2010 08:59 AM FORMER SMOKER - <1 00 LIFETIME CIGARETTES [facility] Aug 12, 2004 09:12 AM [facility]MO[facility] May 29, 2003 01:11 PM HISTORY OF SMOKING [facility] May 29, 2003 01:11 PM QUIT TOBACCO USE > 7 YEARS AGO [facility] Encounter Notes: All associated encounter notes This section contains the clinical notes associated to the Encounter. Date/Time Encounter Note(s) Provider Source Jul 21, 2024 02:45 PM PODIATRY NOTE: LOCAL TITLE: PODIATRY NOTE STANDARD TITLE: PODIATRY NOTE DATE OF NOTE: JUL 21, 2024@14:45 ENTRY DATE: JUL 21, 2024@14:45:36 AUTHOR: TIMUR NAVA EXP COSIGNER: URGENCY: STATUS: COMPLETED Podiatry [facility] Follow up Provider: Timur Nava Date: JUL 21, 2024 ILAN DUDLEY [address] [place] [id number] October [birth year] MALE [phone] PATIENT PHONE - Primary Care: TERRY YEPEZ Follow up Visit Concern: Dropfoot, unilateral leg swelling on the right. 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 Subjective: When I was done at [place] they told me everything is stable and [...] YEPEZ Atrial Flutter * (ICD-9-CM 427.32) 04/20/2010 ETRRY YEPEZ Rosacea * (ICD-9-CM 695.3) 695.3 03/01/2006 ALFONSO ARCINIEGA Superficial basal cell carcinoma 17 02/28/2006 ALFONSO ARCINIEGA Colonoscopy 799.9 06/26/2005 ALFONSO ARCINIEGA Primary HYPERPARATHYROIDISM 252.01 06/26/2005 ALFONSO ARCINIEGA Hyperlipidemia * (ICD-9-CM 272.4) 2 06/26/2005 ALFONSO ARCINIEGA Acute sinusitis (ICD-9-CM 461.9) 46 06/26/2005 ALFONSO ARCINIEGA HYPERTENSION 401.9 08/12/2004 EMILY RODRIGUEZ HEADACHE 784.0 08/12/2004 EIMLY RODRIGUEZ SINUSITIS, CHRONIC 473.9 08/12/2004 EMILY RODRIGUEZ [...] as results of the physical exam and identity management consultant opinions and recommendations as sought. Alternatives [...] on this visit was given information My [employer] service and encouraged to enroll if not already having done so. /es/ TIMUR NAVA DPM PODIATRY ATTENDING Signed: 07/21/2024 14:53 TIMUR NAVA [place] [facility]
--- OUTSIDE RECORDS SUMMARY | 2024-10-02 18:01 | XMS_ITS ---
Author Name [facility] [place] [facility] [place] [facility] [place] Address [address] [place] [address] Care Team Providers Care Bobbin Winder Name Role Phone TERRY YEPEZ Primary Care [...] Relationship to Policy Celeste RUSS BCBS OF [place] MEDICARE SUPPLEMEN RYAN PSUED O MEDEX BRONZ E October 17, 2003 [id number] [phone] OCTAVIA,DAKOTA CHARD PATIENT [place] SUPPLEMEN RYAN MEDEX BRONZ E October 17, 2003 [id number] OCTAVIADAKOTA CHARD PATIENT [place]BS [place] MED[place]ARE SUPPLEMEN RYAN MEDEX BRONZ E October 17, 2003 [id number] DAKOTA DUDLEY CHARD PATIENT BCBS OF [facility] MEDICARE SUPPLEMEN RYAN PSUED O MEDEX BRONZ E October 17, 2003 [id number] [phone] OCTAVIA,RI CHARD PATIENT MEDICARE (WNR) MEDICARE (M) PART A October 17, 2003 PART A [id number] DAKOTA DUDLEY PATIENT MEDICARE (WNR) MEDICARE (M) PART B October 17, 2003 PART B [id number] DAKOTA DUDLEY PATIENT MEDICARE (WNR) MEDICARE (M) PART A October 17, 2003 PART A [id number] [phone] DAKOTA DUDLEY PATIENT MEDICARE (WNR) MEDICARE (M) PART B October 17, 2003 PART B [id number] [phone] DAKOTA DUDLEY PATIENT MEDICARE (WNR) MEDICARE (M) PART A October 17, 2003 PART A [id number] DAKOTA DUDLEY PATIENT MEDICARE (WNR) MEDICARE (M) PART B October 17, 2003 PART B [id number] DAKOTA DUDLEY PATIENT MEDICARE (WNR) MEDICARE (M) PART A October 17, 2003 PART A [id number] DAKOTA DUDLEY PATIENT MEDICARE (WNR) MEDICARE (M) PART B October 17, 2003 PART B [id number] DAKOTA DUDLEY PATIENT Selected Encounter This section includes the information on record at [place] for the Encounter. Date/Time Encounter Type Encounter Description Reason Provider Source Apr 18, 2024 08:30 AM OFFICE O/P EST MOD 30 MIN PRIMARY CARE/MEDICINE ICD-10-CM I10 Essential (primary) hypertension TERRY YEPEZ [facility] Encounter Template Text not used by [place] Assessments - Encounter Diagnoses This section includes the primary and secondary diagnoses documented for the Encounter. Date/Time Primary/Secondary Diagnosis Diagnosis Name Provider Source Jul 29, 2024 12:12 PM PRIMARY Essential (primary) hypertension TERRY YEPEZ [facility] [place] [facility] Jul 29, 2024 12:12 PM SECONDARY Disorder of thyroid, unspecified TERRY YEPEZ [facility] [place] [facility] Jul 29, 2024 12:12 PM SECONDARY Encounter for immunization [facility]A MASON [facility] Plan of Treatment: Future Appointments (+ 6 months) and Future Tests (+/- 45 days) The Plan of Treatment section includes future care activities for the patient from all [place] treatmentfacilities. This section includes future appointments and future orders which are active, pending or scheduled. Future Appointments This section includes appointments that were scheduled to occur 6 months from the date of the Encounter, up to a maximum of 20 appointments. The data comes from all [place] treatment facilities. Appointment Date/Time Appointment Type Appointme nt Facility Name Apr 21, 2024 01:30 PM AMBULATORY - [facility]IN [facility] [place] [facility] Jul 14, 2024 01:00 PM AMBULATORY - SURGERY [facility] Jul 14, 2024 01:30 PM AMBULATORY - NONE [facility] Jul 21, 2024 02:30 PM AMBULATORY - MEDICINE [place] [facility] [facility] Jul 28, 2024 01:00 PM [facility] Lab Results: +/- 30 days of the encounter This section includes the Chemistry and Hematology Lab Results on record with [place] for the patient. Radiology Reports and Pathology Reports are provided separately, in subsequent sections. Lab Results This section contains the Chemistry/Hematology Results that were resulted 30 days before or 30 daysafter the date of the Encounter. Date/Time Source Result Type Result - Unit Interpretation Reference Range Specimen Type Comment Apr 09, 2024 10:53 AM [facility] TSH SERUM Specimen Type: SERUM No comment entered. Ordering Provider: TERRY YEPEZ Report Released Date/Time: Apr 05, 2024 04:09 PM Reporting Lab: [place] [facility] [place] [facility] [address] [facility] [address] Performing Lab: [facility] [place] [facility] [address] [facility] [address] TSH 5.83 u[IU]/mL H 0.35-5.00 Apr 09, 2024 10:53 AM [facility] LIPID PANEL FASTING SERUM Specimen Type: SERU M No comment entered. Ordering Provider: TERRY YEPEZ Report Released Date/Time: Apr 05, 2024 04:09 PM Reporting Lab: [facility] [place] [address] [address] Performing Lab: [facility] [address] [facility] [address] CHOLESTEROL 130 mg/dL TRIGLYCERIDE 92 mg/dL 0-150 LDL calculated 67 mg/dL 0-129 CHOL/HDL 2.9 HDL CHOLESTEROL 45 mg/dL 40-60 Apr 09, 2024 10:53 AM [facility] URINALYSIS CLEAN CATCH URINE Specimen Type: U RINE Comment: If Glucose = >500 and Ketones are positive, please alert the Physician. Ordering Provider: TERRY YEPEZ Report Released Date/Time: Apr 05, 2024 04:09 PM Reporting Lab: [address] [address] Performing Lab: [address] [address] UA COLOR Colorless Yellow UA APPEARANCE Clear Clear UA GLUCOSE Normal mg/dL Negative UA KETONES NEGATIVE mg/dL Negative UA BLOOD NEGATIVE mg/dL Negative UA PROTEIN NEGATIVE mg/dL Negative UA NITRITE NEGATIVE mg/dL Negative UA BILIRUBIN NEGATIVE mg/dL Negative UA SPECIFIC GRAVITY 1.009 L 1.016-1.022 UA pH 6.5 5.0-9.0 UA UROBILINOGEN Normal mg/dL <2.0 UA LEUKOCYTE TRACE Negative Apr 09, 2024 10:53 AM [facility] BASIC METABOLIC PANEL (fasting) SERUM Specime n Type: SERUM No comment entered. Ordering Provider: TERRY YEPEZ Report Released Date/Time: Apr 05, 2024 04:09 PM Reporting Lab: [address] [address] Performing Lab: [address] [address] UREA NITROGEN 22 mg/dL 7-25 GLUCOSE 104 mg/dL H 65-100 SODIUM 138 mmol/L 135-145 POTASSIUM 4.5 mmol/L 3.5-5.0 CHLORIDE 104 mmol/L 100-110 CO2 28 meq/L 20-30 CREATININE, Serum 0.90 mg/dL 0.50-1.40 eGFR(CKD-EPI 2020) 84 mL/min >60 Apr 09, 2024 10:53 AM [facility] LIVER FUNCTION SERUM Specimen Type: SERUM No comment entered. Ordering Provider: TERRY YEPEZ Report Released Date/Time: Apr 05, 2024 04:09 PM Reporting Lab: [facility] [address] [facility] [address] Performing Lab: [address] [address] PROTEIN,TOTAL 7.4 g/dL 6.0-8.3 ALBUMIN 4.3 g/dL 3.5-5.0 ALKALINE PHOSPHATASE 58 U/L 40-150 AST 21 U/L 5-34 ALT 25 U/L BILIRUBIN, TOTAL 0.9 mg/dL 0.2-1.2 Apr 09, 2024 10:53 AM [facility] MICROSCOPIC AUTOMATED, URINE URINE Specimen T ype: URINE Comment: If Glucose = >500 and Ketones are positive, please alert the Physician. Ordering Provider: TERRY YEPEZ Report Released Date/Time: Apr 05, 2024 04:09 PM Reporting Lab: [facility] [address] [facility] [address] Performing Lab: [facility] [address] [facility] [address] UA WBC 0-5 /[HPF] 0-5 UA RBC 0-2 /[HPF] 0-3 Apr 09, 2024 10:53 AM [facility] CBC AND DIFF (AUTO) BLOOD Specimen Type: BLOO D No comment entered. Ordering Provider: TERRY YEPEZ Report Released Date/Time: Apr 05, 2024 04:09 PM Reporting Lab: [facility] [address] [facility] [address] Performing Lab: [address] [address] WBC 5.27 10*3/uL 4.50-11.00 RBC 4.15 10*6/uL [...] 0.0-0.7 IMMATURE GRAN, ABS 0.07 10*3/uL H 0.00-0.0 6 NRBC % 0.0 0.0-0.0 NRBC, ABS 0.00 10*3/uL 0.00-0.00 Vital Signs: All taken on the encounter date This section contains inpatient and outpatient Vital Signs collected on the date of the Encounter. Date/Time Temperature Pulse Blood Pressure Respiratory Rate SP02 Pain Height Weight Body Mass Index Source Apr 18, 2024 08:52 AM 134/82 [facility] Apr 18, 2024 08:27 AM 98.1 67 145/81 16 96 0 72 229.7 31 [facility] Immunizations: All administered on the encounter date This section contains immunizations associated to the Encounter. Immunization Series Date Issued Administered By Site Reaction Lot Number CVX Code Drug Adzing And Boring Machine Helper Comment(s) Source COVID-19 (MODERNA), MRNA, LNP-S, PF, 50 MCG/0.5 ML (AGES 12+ YEARS) Apr 18, 2024 ROSA MASON LEFT DELTO ID [id number] [employer] Booster for Series, ADMINISTERE D AT [place], [facility] INFLUENZA, HIGH-DOSE, TRIVALENT, PF Apr 18, 2024 KAILEYROSA RIGHT DELTO ID [id number] ODILON TORO Completed Series, ADMINISTERE D AT [place], [place] [facility] [place] [facility] Social History: Smoking Status (Most current) and Tobacco Use (All prior to encounter date) This section includes the most current, and the historical, smoking and tobacco- related health factors from the [place] facility where the Encounter took place. Current Smoking Status This section includes the most current smoking, or tobacco-related health factor, from the [place] facility where the Encounter took place. Date/Time Current Smoking Status Comment Facil ity Apr 18, 2024 08:30 AM VA-TOBACCO NEVER USED [place] [facility] Tobacco Use History This section includes a history of the smoking, or tobacco-related health factors, that were collected on or before the date of the Encounter. The data comes from the [place] facility where the Encounter took place. Date/Time Smoking Status/Tobacco Use Comment F acility Apr 16, 2023 09:30 AM VA-TOBACCO NEVER USED [facility] [place] [facility] May 09, 2022 09:00 AM VA-TOBACCO NEVER USED [facility] [place] [facility] May 10, 2021 08:00 AM VA-TOBACCO NEVER USED [facility] [place] [facility] May 17, 2020 03:00 PM VA-TOBACCO NEVER USED [facility] [place] [facility] Apr 15, 2018 09:31 AM VA-TOBACCO NEVER USED [facility] [place] [facility] Apr 17, 2017 08:56 AM LIFETIME NON-TOBACCO USER [facility] [place] [facility] Apr 13, 2016 08:54 AM LIFETIME NON-TOBACCO USER [facility] [place] [facility] Apr 20, 2010 08:59 AM FORMER SMOKER - <1 00 LIFETIME CIGARETTES [facility] [place] [facility] Aug 12, 2004 09:12 AM HISTORY OF SMOKING [facility] [place] [facility] May 29, 2003 01:11 PM HISTORY OF SMOKING [facility] [place] [facility] May 29, 2003 01:11 PM QUIT TOBACCO USE > 7 YEARS AGO [place] [facility] [place] [facility] Encounter Notes: All associated encounter [...] Administered: Apr 18, 2024 08:30 Series: Complete Adzing And Boring Machine Helper: SANOFI PASTEUR Lot: [id number] Exp Date: Dec 15, 2024 ND: [id number] Admin Route/Site: INTRAMUSCULAR/RIGHT DELTOID Dosage: 0.5mL Vaccine Information Statement(s): INFLUENZA(FLU) VACC(INACTIVATED OR RECOMBINANT)VIS Jan 21, 2021 ([place]) Order By: Policy Administered By: Rosa Mason [...] Administered: Apr 18, 2024 08:30 Series: Booster Adzing And Boring Machine Helper: [employer]NA [employer] Lot: [id number] Exp Date: Nov 22, 2024 NDC: [id number] Admin Route/Site: INTRAMUSCULAR/LEFT DELTOID Dosage: 0.5mL Vaccine Information Statement(s): COVID-19 MRNA VACCINE (12+ YRS) VACCINE VIS Apr 03, 2024 ([place]) Order By: Policy Administered By: Rosa Mason Vaccine administered without complications. /tha/ Rosa Mason RN, BSN Primary Care Signed: 04/18/2024 09:06 [facility] Apr 18, 2024 08:30 AM PREVENTIVE MEDICINE NURSING NOTE: LOCAL TITLE: CLINICAL REMINDERS/NURSING STANDARD TITLE: PREVENTIVE MEDICINE NURSING NOTE DATE OF NOTE: APR 18, 2024@08:30 ENTRY DATE: APR 18, 2024@08:30:37 AUTHOR: SEB GARCIA COSIGNER: URGENCY: STATUS: COMPLETED Falls & Incontinence [...] Not at all Suicide Screen: C-SSRS Screening [place] Suicide Severity Rating Scale (C-SSRS) screener 1. [...] Not worried about housing near future [facility] [place] reports the following: Within the past 12 [...] Comment: will get a copy to this [place] Tobacco Use Screening: The patient has never [...] LPN LPN Signed: 04/18/2024 08:34 SEB GARCIA [place] [facility]
--- OUTSIDE RECORDS SUMMARY | 2024-10-02 18:01 | XMS_ITS | Clinical Summary ---
Author Organization [address] [place] [address] [place] [phone] Phone Care Team Providers Care Ordnance Engineer Name Role Phone Royal Aguila MD Primary Care Provider [phone] Allergies Active Allergy Reactions Criticality Noted Date [...] Date Diagnosed Date (HFpEF) heart failure with p reserved ejection fraction (CMS/HCC V24, CMS/HCC V28) 03/26/2023 Overview (05/23/2024): HFpEF with LVEF 45 to 50% by echocardiogram 2019. Peripheral edema throughout the day. Requiring Lasix daily. Last Assessment & Plan: Significant peripheral edema managed with Lasix and compression stockings. No signs of pulmonary edema. Continue with current diuretic dose a low-sodium diet and manual management of the peripheral edema. Sinus node dysfunction (CMS/HCC V24, CMS/HCC V28 ) 03/26/2023 Overview (05/23/2024): Chronic atrial fibrillation with [...] Description 08/18/2024 3:30 PM EST Ancillary Procedure [facility] Cardiology [facility] [address] [place] [address] Encounter for adjustment or management of cardiac [...] Description 02/18/2025 3:30 PM EDT Ancillary Procedure [facility] Cardiology [facility] [address] [place] [address] 04/13/2025 9:25 AM EDT Office Visit [facility] Cardiology [facility] [address] [place] [address] William Damon MD [address] [facility] [address] [place] [address] Health Maintenance Due Date Last Done Comments [...] Zoster Vaccines Completed 04/14/2019, 04/15/2018 RSV Immunization Adult Patients Completed 04/25/2023 COVID-19 Vaccine Completed 04/18/2024, , [...] age to complete this topic Meningococcal B Vaccine Aged Out No l onger eligible based on patient's age to complete this topic RSV Immunization Patients Under 20 months Aged Out No longer eligible based on patient's age to complete this topic Varicella Vaccines Aged Out No longer eligible based on patient's age to complete this topic Medical Devices Implanted Type Area Electronics Inspector Device Identifier Shelf Expiration Date Model / Serial / Lot Abbt-Stju Assurity Mri [id number] Implanted:04/2020 (Quantity not on file) Cardiac Pacemaker [facility] MRI 2272 / [id number] / Procedures Procedure Name Priority Date/Time Associated Diagnosis Comments CARDIAC DEVICE CHECK- [facility] Routine 08/18/2024 3:38 PM EST Encounter for adjustment or management of cardiac device from Last 3 Months Results * CARDIAC DEVICE CHECK- [facility] (08/18/2024 3:38 PM EST) Date Time Interrogation Session [id number] CV DEVICE CHECK Implantable Pulse Generator Electronics Inspector [employer] CV DEVICE CHECK Implantable Pulse Generator Type IPG CV DEVICE CHECK Implantable Pulse Generator Model Assurity MRI 2272 CV DEVICE CHECK Implantable Pulse Generator Serial Number [id number] CV DEVICE CHECK Implantable Pulse Generator Implant [...] reviewed and tested * Presenting Rhythm: AF ESL TEACHER 80s * Underlying Rhythm: AF VS 60s * Heart Rate Histograms reviewed * Pacing and Detection Parameters were evaluated Narrative Procedure Note Marisol, William P, MD - 08/21/2024 IMPRESSION: Normal In-Office: With Events * Normal Device Function * Events or Alerts: 1 new HVR alert, EGM suggestive of 6-beats NSVT * Battery: MOS, 7.30 yrs * Sensing, impedance and thresholds reviewed and tested * Presenting Rhythm: AF ESL TEACHER 80s * Underlying Rhythm: AF VS 60s * Heart Rate Histograms reviewed * Pacing and Detection Parameters were evaluated us Order Referral Cardiovascular CV IMPLANTABLE CAR DIAC DEVICE PROCEDURES Final Result from Last 3 Months Insurance MEDICARE [facility] Care Teams Ordnance Engineer Relationship Specialty Start Date End Date Royal Aguila MD [address] [place] [address] [address] [facility] [place] [address] PCP - General Internal Medicine 05/15/20
--- OUTSIDE RECORDS SUMMARY | 2024-10-02 18:01 | XMS_ITS | Continuity of Care Document ---
Author Name [facility] Organization [facility] Care Team Providers Care English And Reading Instructor Name Role Phone [facility] Unavailable Unavailable Problems Combined list of problems [...] HCS Rosacea * (ICD-9-CM 695.3) Active Condition [facility] [place] [facility] SINUSITIS, CHRONIC Active Condition [facility] [place] [facility] Superficial basal cell carcinoma Active Condition Feb 28, 2006 Entered By: ALFONSO ARCINIEGA Comment: Resected from L. Pretibial 2005. [facility] [place] [facility] Screening for Malignant Neoplasms of colon Inactive Condition 05/29/2003 May 29, 2003 Entered By: JOSH RODRIGUEZ Comment: colonscopy 02/18 one benign polyp, Mother had colon CA. [facility] [place] [facility] Diagnosis: ICD-10-CM M21.371 Foot drop, right foot Active [facility] [place] [facility] Diagnosis: ICD-10-CM I87.2 Venous insufficiency (chronic) (peripheral) Active Diagnosis [facility] Diagnosis: ICD-10-CM I89.0 Lymphedema, not elsewhere classified Active Diagnosis [facility] Diagnosis: ICD-10-CM I10 Essential (primary) hypertension [facility] [place] [facility] Diagnosis: ICD-10-CM M20.40 Other hammer toe(s) (acquired), unspecified foot Active [facility] [place] [facility] Diagnosis: ICD-10-CM R60.0 Localized edema Active Diagnosis [facility] [place] [facility] Diagnosis: ICD-10-CM R60.9 Edema, unspecified [facility] [place] [facility] Diagnosis: ICD-10-CM Z23 Encounter for immunization Active [facility] [place] [facility] Medications Combined list of outpatient [...] EVERY DAY [facility]AL ACT[facility] [place] [facility] LEVOTHYROXI NE NA 50MCG TAB (SYNTHROID) TAKE ONE TABLET BY MOUTH EVERY DAY ORAL ACTIVE NED YEPEZ 2011 [facility] [place] [facility] LISINOPRIL 20MG TAB TAKE ONE TABLET BY MOUTH EVERY DAY ORAL ACTIVE LUCHO,HOW FELIPA D 2011 [facility] [place] [facility] METOPROLOL SUCCINATE TAB,SA TAKE 12.5MG BY MOUTH EVERY DAY ORAL ACTIVE LUCHO,HOW FELIPA D 2011 [facility] [place] [facility] MULTIVITAMI NS W/MINERALS TAB TAKE ONE TABLET BY MOUTH ORAL ACTIVE EMILY RODRIGUEZ 2004 [facility] [place] [facility] [facility] SIMVASTATIN 40MG TAB TAKE ONE-HALF TABLET BY MOUTH AT BEDTIME ORAL ACTIVE LUCHO,HOW FELIPA D 2023 [facility] WARFARIN NA (MOORE STATE) 10MG TAB TAKE DIRECTED BY MOUTH WITH DIRECTIO NS PROVIDED FROM THE [facility] ORAL ACTIVE LUCHO,HOW FELIPA D 2011 [facility] Allergies, Adverse Reactions, Alerts Combined list of allergies from Department of Defense and Veterans Affairs facilities. It does not include entries that were removed or entered in error. Substance Category Reaction Severity Reaction type Status Date Reported Comments Source AMOXICILLIN Propensity to adverse reactions to drug (finding) Eruption active 3 [facility] [place] [facility] CALCIUM Propensity to adverse reactions to drug (finding) Eruption active 3 [facility] [place] [facility] MINOCYCLINE Propensity to adverse reactions to drug (finding) Eruption active 3 [facility] [place] [facility] Immunizations Combined list of available immunizations from the Department of Defense and Veterans Affairs facilities. 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 Status Comments Source COVID-19 (MODERNA), MRNA, LNP-S, PF, 50 MCG/0.5 ML (AGES 12+ YEARS) 2023 CASSI BONNER LEFT DELTO ID [id number] 312 complet ed Booster for Series, [place]MIN[place], [facility] INFLUENZA, HIGH-DOSE, TRIVALENT, PF 2023 KAILEY,CASSI A RIGHT DELTO ID [id number] 135 complet ed Completed Series, [facility] RSV, BIVALENT, PROTEIN SUBUNIT RSVPREF, DILUENT RECONSTITUTED , 0.5 ML, PF 2022 CASSI BONNER RIGHT DELTO ID [id number] 305 complet ed Completed Series[facility] COVID-19 (MODERNA), MRNA, LNP-S, PF, 50 MCG/0.5 ML (AGES 12+ YEARS) 4 2022 SHYLA HERNANDEZ M RIGHT DELTO ID [id number] 312 complet ed [facility] INFLUENZA, HIGH-DOSE, QUADRIVALENT 2022 SHYLA HERNANEDZ ER M LEFT DELTO ID [id number] 197 complet ed [facility] TDAP 2022 SHYLA HERNANDEZ M LEFT DELTO ID [id number] 115 complet ed [facility] INFLUENZA, UNSPECIFIED FORMULATION 2021 88 complet ed [facility] COVID-19 (MODERNA), MRNA, LNP-S, PF, 100 MCG OR 50 MCG DOSE 3 2020 207 complet ed [id number] [facility] INFLUENZA VACCINE, QUADRIVALENT, ADJUVANTED 2020 205 complet ed [facility] COVID-19 (MODERNA), MRNA, LNP-S, PF, 100 MCG/0.5 ML DOSE 2 2020 207 complet ed MOD; [id number]; 1 [facility] COVID-19 (MODERNA), MRNA, LNP-S, PF, 100 MCG/0.5 ML DOSE 1 2020 207 complet ed MOD; [id number]; 1 [facility] INFLUENZA, UNSPECIFIED FORMULATION 2019 88 [...] (HISTORICAL) 2005 JURGEN MARRERO 88 complet ed [place] [facility] [place] [facility] PNEUMOCOCCAL, UNSPECIFIED FORMULATION 2004 109 complet ed [place] [facility] [place] [facility] Results Combined [...] Apr 05, 2024 04:09 PM Reporting Lab: [facility] [place] [facility] [address] [address] Performing Lab: [place] [facility] [place] [address] [address] [facility] [place] [facility] LIPID PANEL FASTING CHOLESTERO L [MASS/VOLU ME] IN SERUM OR PLASMA 130 mg/dL 04/09 Specimen Type: SERUM No comment entered. Ordering Provider: RONNIE YEPEZ Report Released Date/Time: Apr 05, 2024 04:09 PM Reporting Lab: [facility] [place] [facility] [address] [address] Performing Lab: [facility] [place] [address] [address] [facility] [place] [facility] LIPID PANEL FASTING TRIGLYCERI DE [MASS/VOLU ME] IN SERUM OR PLASMA 92 mg/dL 0 - 150 04/09 Specimen Type: SERUM No comment entered. Ordering Provider: RONNIE YEPEZ Report Released Date/Time: Apr 05, 2024 04:09 PM Reporting Lab: [facility] [place] [place] [facility] [address] [address] Performing Lab: [place] [facility] [place] [address] [address] [place] [facility] [place] [facility] LIPID PANEL FASTING CHOLESTERO L IN LDL [MASS/VOLU ME] IN SERUM OR PLASMA BY CALCULATIO N 67 mg/dL 0 - 129 04/09 Specimen Type: SERUM No comment entered. Ordering Provider: RONNIE YEPEZ Report Released Date/Time: Apr 05, 2024 04:09 PM Reporting Lab: [facility] [place] [place] [facility] [address] [address] Performing Lab: [place] [facility] [place] [facility] [address] [address] [place] [facility] [place] [facility] LIPID PANEL FASTING CHOLESTERO L.TOTAL/CH OLESTEROL IN HDL [MASS RATIO] IN SERUM OR PLASMA 2.9 04/09 Specimen Type: SERUM No comment entered. Ordering Provider: RONNIE YEPEZ Report Released Date/Time: Apr 05, 2024 04:09 PM Reporting Lab: [place] [facility] [place] [facility] [address] [address] Performing Lab: [place] [facility] [place] [facility] [address] [address] [facility] [place] [facility] LIPID PANEL FASTING CHOLESTERO L IN HDL [MASS/VOLU ME] IN SERUM OR PLASMA 45 mg/dL 40 - 60 04/09 Specimen Type: SERUM No comment entered. Ordering Provider: RONNIE YEPEZ Report Released Date/Time: Apr 05, 2024 04:09 PM Reporting Lab: [place] [facility] [place] [facility] [address] [address] Performing Lab: [place] [facility] [place] [facility] [address] [address] [facility] [place] [facility] URINALYS IS CLEAN CATCH COLOR OF URINE Colorles s 04/09 Specimen Type: URINE Comment: If Glucose = >500 and Ketones are positive, please alert the Physician. Ordering Provider: RONNIE YEPEZ Report Released Date/Time: Apr 05, 2024 04:09 PM Reporting Lab: [facility] [place] [facility] [address] [address] Performing Lab: [place] [facility] [place] [facility] [address] [address] [place] [facility] [place] [facility] URINALYS IS CLEAN CATCH APPEARANCE OF URINE Clear 04/09 Specimen Type: URINE Comment: If Glucose = >500 and Ketones are positive, please alert the Physician. Ordering Provider: RONNIE YEPEZ Report Released Date/Time: Apr 05, 2024 04:09 PM Reporting Lab: [facility] [place] [place] [facility] [address] [address] Performing Lab: [facility] [place] [facility] [address] [address] [facility] [place] [facility] URINALYS IS CLEAN CATCH GLUCOSE [MASS/VOLU ME] IN URINE Normalmg /dL 04/09 Specimen Type: URINE Comment: If Glucose = >500 and Ketones are positive, please alert the Physician. Ordering Provider: RONNIE YEPEZ Report Released Date/Time: Apr 05, 2024 04:09 PM Reporting Lab: [facility] [place] [address] [address] Performing Lab: [facility] [place] [facility] [address] [address] [facility] [place] [facility] URINALYS IS CLEAN CATCH KETONES [MASS/VOLU ME] IN URINE BY TEST STRIP NEGATIVE mg/dL 04/09 Specimen Type: URINE Comment: If Glucose = >500 and Ketones are positive, please alert the Physician. Ordering Provider: RONNIE YEPEZ Report Released Date/Time: Apr 05, 2024 04:09 PM Reporting Lab: [facility] [place] [address] [address] Performing Lab: [place] [facility] [place] [address] [address] [facility] [place] [facility] URINALYS IS CLEAN CATCH ERYTHROCYT ES [PRESENCE] IN URINE SEDIMENT BY LIGHT MICROSCOPY NEGATIVE mg/dL 04/09 Specimen Type: URINE Comment: If Glucose = >500 and Ketones are positive, please alert the Physician. Ordering Provider: RONNIE YEPEZ Report Released Date/Time: Apr 05, 2024 04:09 PM Reporting Lab: [facility] [place] [facility] [address] [address] Performing Lab: [place] [facility] [place] [facility] [address] [address] [place] [facility] [facility] URINALYS IS CLEAN CATCH PROTEIN [MASS/VOLU ME] IN URINE BY TEST STRIP NEGATIVE mg/dL 04/09 Specimen Type: URINE Comment: If Glucose = >500 and Ketones are positive, please alert the Physician. Ordering Provider: RONNIE YEPEZ Report Released Date/Time: Apr 05, 2024 04:09 PM Reporting Lab: [place] [facility] [place] [facility] [address] [address] Performing Lab: [place] [facility] [place] [facility] [address] [address] [place] [facility] [facility] URINALYS IS CLEAN CATCH NITRITE [PRESENCE] IN URINE NEGATIVE mg/dL 04/09 Specimen Type: URINE Comment: If Glucose = >500 and Ketones are positive, please alert the Physician. Ordering Provider: RONNIE YEPEZ Report Released Date/Time: Apr 05, 2024 04:09 PM Reporting Lab: [place] [facility] [place] [facility] [address] [address] Performing Lab: [place] [facility] [place] [facility] [address] [address] [place] [facility] [facility] URINALYS IS CLEAN CATCH BILIRUBIN. TOTAL [PRESENCE] IN URINE NEGATIVE mg/dL 04/09 Specimen Type: URINE Comment: If Glucose = >500 and Ketones are positive, please alert the Physician. Ordering Provider: RONNIE YEPEZ Report Released Date/Time: Apr 05, 2024 04:09 PM Reporting Lab: [place] [facility] [place] [facility] [address] [address] Performing Lab: [place] [facility] [place] [facility] [address] [address] [place] [facility] [facility] URINALYS IS CLEAN CATCH SPECIFIC GRAVITY OF URINE BY REFRACTOME TRY 1.009 1.016 - 1.022 04/09 L Specimen Type: URINE Comment: If Glucose = >500 and Ketones are positive, please alert the Physician. Ordering Provider: RONNIE YEPEZ Report Released Date/Time: Apr 05, 2024 04:09 PM Reporting Lab: [facility] [place] [facility] [address] [address] Performing Lab: [facility] [place] [facility] [address] [address] [facility] [place] [facility] URINALYS IS CLEAN CATCH PH OF URINE BY TEST STRIP 6.5 5.0 - 9.0 04/09 Specimen Type: URINE Comment: If Glucose = >500 and Ketones are positive, please alert the Physician. Ordering Provider: RONNIE YEPEZ Report Released Date/Time: Apr 05, 2024 04:09 PM Reporting Lab: [facility] [place] [facility] [address] [address] Performing Lab: [facility]ITALTRN [facility] [address] [facility]CHUSE [facility] URINALYS IS CLEAN CATCH UROBILINOG EN [MASS/VOLU ME] IN URINE BY TEST STRIP Normalmg /dL <2.0 - 2.0 04/09 Specimen Type: URINE Comment: If Glucose = >500 and Ketones are positive, please alert the Physician. Ordering Provider: RONNIE YEPEZ Report Released Date/Time: Apr 05, 2024 04:09 PM Reporting Lab: [facility] [place] [facility] [address] [address] Performing Lab: [facility] [place] [facility] [address] [address] [facility] [place] [facility] URINALYS IS CLEAN CATCH LEUKOCYTE ESTERASE [PRESENCE] IN URINE BY TEST STRIP TRACE 04/09 Specimen Type: URINE Comment: If Glucose = >500 and Ketones are positive, please alert the Physician. Ordering Provider: RONNIE YEPEZ Report Released Date/Time: Apr 05, 2024 04:09 PM Reporting Lab: [facility] [place] [address] [address] Performing Lab: [facility] [address] [address] [facility] BASIC METABOLI C PANEL (fasting ) UREA NITROGEN [MASS/VOLU ME] IN SERUM OR PLASMA 22 mg/dL 7 - 25 04/09 Specimen Type: SERUM No comment entered. Ordering Provider: RONNIE YEPEZ Report Released Date/Time: Apr 05, 2024 04:09 PM Reporting Lab: [facility]ITALTRN [facility] [address] [address] Performing Lab: [facility]ITALTRN [facility] [address] [address] [facility] BASIC METABOLI C PANEL (fasting ) GLUCOSE [MASS/VOLU ME] IN SERUM OR PLASMA 104 mg/dL 65 - 100 04/09 H Specimen Type: SERUM No comment entered. Ordering Provider: RONNIE YEPEZ Report Released Date/Time: Apr 05, 2024 04:09 PM Reporting Lab: [facility] [address] [address] Performing Lab: [facility]ERR[facility]OSPITALTRN [facility]ENTERUSE[address] [address] [facility] BASIC METABOLI C PANEL (fasting ) SODIUM [MOLES/VOL UME] IN SERUM OR PLASMA 138 mmol/L 135 - 145 04/09 Specimen Type: SERUM No comment entered. Ordering Provider: RONNIE YEPEZ Report Released Date/Time: Apr 05, 2024 04:09 PM Reporting Lab: [facility] TRN [facility] [address] [address] Performing Lab: [facility]ERR[facility]ITALTRN [facility]ENTERUSE[address] [address] [facility] BASIC METABOLI C PANEL (fasting ) POTASSIUM [MOLES/VOL UME] IN SERUM OR PLASMA 4.5 mmol/L 3.5 - 5.0 04/09 Specimen Type: SERUM No comment entered. Ordering Provider: RONNIE YEPEZ Report Released Date/Time: Apr 05, 2024 04:09 PM Reporting Lab: [place] [facility] [place] [facility] [address] [address] Performing Lab: [place] [facility] [place] [facility] [address] [address] [place] [facility] [place] [facility] BASIC METABOLI C PANEL (fasting ) CHLORIDE [MOLES/VOL UME] IN SERUM OR PLASMA 104 mmol/L 100 - 110 04/09 Specimen Type: SERUM No comment entered. Ordering Provider: RONNIE YEPEZ Report Released Date/Time: Apr 05, 2024 04:09 PM Reporting Lab: [place] [facility] [place] [facility] [address] [address] Performing Lab: [place] [facility] [place] [facility] [address] [address] [facility] [place] [facility] BASIC METABOLI C PANEL (fasting ) CARBON DIOXIDE, TOTAL [MOLES/VOL UME] IN SERUM OR PLASMA 28 meq/L 20 - 30 04/09 Specimen Type: SERUM No comment entered. Ordering Provider: RONNIE YEPEZ Report Released Date/Time: Apr 05, 2024 04:09 PM Reporting Lab: [facility] [place] [facility] [address] [address] Performing Lab: [place] [facility] [place] [facility] [address] [address] [facility] [place] [facility] BASIC METABOLI C PANEL (fasting ) CREATININE [MASS/VOLU ME] IN SERUM OR PLASMA 0.90 mg/dL 0.50 - 1.40 04/09 Specimen Type: SERUM No comment entered. Ordering Provider: RONNIE YEPEZ Report Released Date/Time: Apr 05, 2024 04:09 PM Reporting Lab: [place] [facility] [place] [facility] [address] [address] Performing Lab: [place] [facility] [place] [facility] [address] [address] [facility] [place] [facility] BASIC METABOLI C PANEL (fasting ) GLOMERULAR FILTRATION RATE/1.73 SQ M.PREDICTE D [VOLUME RATE/AREA] IN SERUM, PLASMA OR BLOOD BY CREATININE -BASED FORMULA (CKD-EPI 2020) 84 mL/min 60 04/09 Specimen Type: SERUM No comment entered. Ordering Provider: RONNIE YEPEZ Report Released Date/Time: Apr 05, 2024 04:09 PM Reporting Lab: [facility] TRN [facility]ENTERUSETS [facility] [address] [address] Performing Lab: [place] [facility] [place] [facility]USE[facility] [address] [address] [facility]RL TRN [facility] LIVER FUNCTION PROTEIN [MASS/VOLU ME] IN SERUM OR PLASMA 7.4 g/dL 6.0 - 8.3 04/09 Specimen Type: SERUM No comment entered. Ordering Provider: RONNIE YEPEZ Report Released Date/Time: Apr 05, 2024 04:09 PM Reporting Lab: [facility]ENTERUSE[address] [address] Performing Lab: [facility]RL TRN [facility]ENTERUSE[address] [address] [facility]RL [facility]ERN [facility] LIVER FUNCTION ALBUMIN [MASS/VOLU ME] IN SERUM OR PLASMA 4.3 g/dL 3.5 - 5.0 04/09 Specimen Type: SERUM No comment entered. Ordering Provider: RONNIE YEPEZ Report Released Date/Time: Apr 05, 2024 04:09 PM Reporting Lab: [facility]ENTERUSE[address] [address] Performing Lab: [place] [facility] [facility]ENTERUSE[address] [address] [facility]ERRST[facility] VINCENT'[facility]OSPITALN [facility]USE [facility] LIVER FUNCTION ALKALINE PHOSPHATAS E [ENZYMATIC ACTIVITY/V OLUME] IN SERUM OR PLASMA 58 U/L 40 - 150 04/09 Specimen Type: SERUM No comment entered. Ordering Provider: RONNIE YEPEZ Report Released Date/Time: Apr 05, 2024 04:09 PM Reporting Lab: [facility]ENTERUSE[address] [address] Performing Lab: [facility] TRN [facility]ENTERUSE[address] [address] [facility] [place] [facility] LIVER FUNCTION ASPARTATE AMINOTRANS FERASE [ENZYMATIC ACTIVITY/V OLUME] IN SERUM OR PLASMA 21 U/L 5 - 34 04/09 Specimen Type: SERUM No comment entered. Ordering Provider: RONNIE YEPEZ Report Released Date/Time: Apr 05, 2024 04:09 PM Reporting Lab: [place] [facility] [place] [facility] [address] [address] Performing Lab: [place] [facility] [place] [facility] [address] [address] [facility] [place] [facility] LIVER FUNCTION ALANINE AMINOTRANS FERASE [ENZYMATIC ACTIVITY/V OLUME] IN SERUM OR PLASMA 25 U/L 04/09 Specimen Type: SERUM No comment entered. Ordering Provider: RONNIE YEPEZ Report Released Date/Time: Apr 05, 2024 04:09 PM Reporting Lab: [facility] [place] [address] [address] Performing Lab[facility] [place] [facility] [place] [facility] [address] [phone] [facility] LIVER FUNCTION BILIRUBIN. TOTAL [MASS/VOLU ME] IN SERUM OR PLASMA 0.9 mg/dL 0.2 - 1.2 04/09 Specimen Type: SERUM No comment entered. Ordering Provider: RONNIE YEPEZ Report Released Date/Time: Apr 05, 2024 04:09 PM Reporting Lab: [facility] [place] [address] [phone] Performing Lab: [place] [facility] [place] [address] [address] [facility] MICROSCO PIC AUTOMATE D, URINE LEUKOCYTES [#/AREA] IN URINE SEDIMENT BY MICROSCOPY HIGH POWER FIELD 0-5/[HPF ] 0 - 5 04/09 Specimen Type: URINE Comment: If Glucose = >500 and Ketones are positive, please alert the Physician. Ordering Provider: RONNIE YEPEZ Report Released Date/Time: Apr 05, 2024 04:09 PM Reporting Lab: [facility] [place] [address] [address] Performing Lab: [facility] [place] [address] [address] [facility] [place] MICROSCO PIC AUTOMATE D, URINE ERYTHROCYT ES [#/AREA] IN URINE SEDIMENT BY MICROSCOPY HIGH POWER FIELD 0-2/[HPF ] 0 - 3 04/09 Specimen Type: URINE Comment: If Glucose = >500 and Ketones are positive, please alert the Physician. Ordering Provider: RONNIE YEPEZ Report Released Date/Time: Apr 05, 2024 04:09 PM Reporting Lab: [facility] [place] [facility] [address] [address] Performing Lab: [facility] [place] [address] [address] [facility] [place] [facility] CBC AND DIFF (AUTO) LEUKOCYTES [#/VOLUME] IN BLOOD BY AUTOMATED COUNT 5.27 10*3/uL 4.50 - 11.00 04/09 Specimen Type: BLOOD No comment entered. Ordering Provider: RONNIE YEPEZ Report Released Date/Time: Apr 05, 2024 04:09 PM Reporting Lab: [facility] [address] [address] Performing Lab: [facility] [place] [address] [address] [facility] [place] [facility] CBC AND DIFF (AUTO) ERYTHROCYT ES [#/VOLUME] IN BLOOD BY AUTOMATED COUNT 4.15 10*6/uL 4.23 - 5.66 04/09 L Specimen Type: BLOOD No comment entered. Ordering Provider: RONNIE YEPEZ Report Released Date/Time: Apr 05, 2024 04:09 PM Reporting Lab: [facility] [place] [address] [address] Performing Lab: [facility] [place] [facility] [address] [address] [facility] [place] [facility] CBC AND DIFF (AUTO) HEMOGLOBIN [MASS/VOLU ME] IN BLOOD 13.2 g/dL 12.8 - 17 04/09 Specimen Type: BLOOD No comment entered. Ordering Provider: RONNIE YEPEZ Report Released Date/Time: Apr 05, 2024 04:09 PM Reporting Lab: [facility] [place] [facility] [address] [address] Performing Lab: [facility] [place] [facility] [address] [address] [facility] [place] [facility] CBC AND DIFF (AUTO) HEMATOCRIT [VOLUME FRACTION] OF BLOOD BY AUTOMATED COUNT 38.2 39.2 - 50.4 04/09 L Specimen Type: BLOOD No comment entered. Ordering Provider: RONNIE YEPEZ Report Released Date/Time: Apr 05, 2024 04:09 PM Reporting Lab: [facility] [place] [facility] [address] [address] Performing Lab: [facility] [place] [facility] [address] [address] [facility] [place] [facility] CBC AND DIFF (AUTO) MCV [ENTITIC VOLUME] BY AUTOMATED COUNT 92.0 fL 82 - 99 04/09 Specimen Type: BLOOD No comment entered. Ordering Provider: RONNIE YEPEZ Report Released Date/Time: Apr 05, 2024 04:09 PM Reporting Lab: [facility] [place] [facility] [address] [address] Performing Lab: [facility] [place] [facility] [address] [address] [facility] [place] [facility] CBC AND DIFF (AUTO) MCHC [MASS/VOLU ME] BY AUTOMATED COUNT 34.6 g/dL 30.8 - 35.1 04/09 Specimen Type: BLOOD No comment entered. Ordering Provider: RONNIE YEPEZ Report Released Date/Time: Apr 05, 2024 04:09 PM Reporting Lab: [facility] [place] [facility] [address] [address] Performing Lab: [facility] [place] [facility] [address] [address] [facility] [place] [facility] CBC AND DIFF (AUTO) PLATELETS [#/VOLUME] IN BLOOD BY AUTOMATED COUNT 138 10*3/uL 140 - 360 04/09 L Specimen Type: BLOOD No comment entered. Ordering Provider: RONNIE YEPEZ Report Released Date/Time: Apr 05, 2024 04:09 PM Reporting Lab: [facility] [place] [address] [address] Performing Lab: [facility] [place] [facility] [address] [address] [facility] [place] [facility] CBC AND DIFF (AUTO) ERYTHROCYT E DISTRIBUTI ON WIDTH [RATIO] BY AUTOMATED COUNT 13.0 12.0 - 16.0 04/09 Specimen Type: BLOOD No comment entered. Ordering Provider: RONNIE YEPEZ Report Released Date/Time: Apr 05, 2024 04:09 PM Reporting Lab: [facility] [place] [address] [address] Performing Lab: [facility] [place] [address] [address] [facility]N [place] [facility] CBC AND DIFF (AUTO) MONOCYTES [#/VOLUME] IN BLOOD BY AUTOMATED COUNT 0.49 10*3/uL 0.30 - 1.10 04/09 Specimen Type: BLOOD No comment entered. Ordering Provider: RONNIE YEPEZ Report Released Date/Time: Apr 05, 2024 04:09 PM Reporting Lab: [facility] [place] [address] [address] Performing Lab: [facility] [place] [facility] [address] [address] [facility] [place] [facility] CBC AND DIFF (AUTO) MCH [ENTITIC MASS] BY AUTOMATED COUNT 31.8 pg 26.2 - 32.6 04/09 Specimen Type: BLOOD No comment entered. Ordering Provider: RONNIE YEPEZ Report Released Date/Time: Apr 05, 2024 04:09 PM Reporting Lab: [facility] [place] [address] [address] Performing Lab: [facility] [place] [facility] [address] [address] [facility] [place] [facility] CBC AND DIFF (AUTO) NEUTROPHIL S/100 LEUKOCYTES IN BLOOD BY AUTOMATED COUNT 56.7 43.7 - 75.8 04/09 Specimen Type: BLOOD No comment entered. Ordering Provider: RONNIE YEPEZ Report Released Date/Time: Apr 05, 2024 04:09 PM Reporting Lab: [facility] [place] [facility] [address] [address] Performing Lab: [facility] [place] [facility] [address] [address] [facility] [place] [facility] CBC AND DIFF (AUTO) LYMPHOCYTE S/100 LEUKOCYTES IN BLOOD BY AUTOMATED COUNT 28.1 14.0 - 42.3 04/09 Specimen Type: BLOOD No comment entered. Ordering Provider: RONNIE YEPEZ Report Released Date/Time: Apr 05, 2024 04:09 PM Reporting Lab: [facility] [place] [facility] [address] [address] Performing Lab: [facility] [place] [facility] [address] [address] [facility] [place] [facility] CBC AND DIFF (AUTO) MONOCYTES/ 100 LEUKOCYTES IN BLOOD BY AUTOMATED COUNT 9.3 5.1 - 13.7 04/09 Specimen Type: BLOOD No comment entered. Ordering Provider: RONNIE YEPEZ Report Released Date/Time: Apr 05, 2024 04:09 PM Reporting Lab: [facility] [place] [facility] [address] [address] Performing Lab: [facility] [place] [facility] [address] [address] [facility] [place] [facility] CBC AND DIFF (AUTO) EOSINOPHIL S/100 LEUKOCYTES IN BLOOD BY AUTOMATED COUNT 3.8 0.4 - 6.8 04/09 Specimen Type: BLOOD No comment entered. Ordering Provider: RONNIE YEPEZ Report Released Date/Time: Apr 05, 2024 04:09 PM Reporting Lab: [facility] [place] [facility] [address] [address] Performing Lab: [facility] [place] [facility] [address] [address] [facility] [place] [facility] CBC AND DIFF (AUTO) BASOPHILS/ 100 LEUKOCYTES IN BLOOD BY AUTOMATED COUNT 0.8 0.1 - 2.0 04/09 Specimen Type: BLOOD No comment entered. Ordering Provider: RONNIE YEPEZ Report Released Date/Time: Apr 05, 2024 04:09 PM Reporting Lab: [facility] [place] [facility] [address] [address] Performing Lab: [facility] [place] [facility] [address] [address] [place] [facility] [place] [facility] CBC AND DIFF (AUTO) NEUTROPHIL S [#/VOLUME] IN BLOOD BY AUTOMATED COUNT 2.99 10*3/uL 2.20 - 7.60 04/09 Specimen Type: BLOOD No comment entered. Ordering Provider: RONNIE YEPEZ Report Released Date/Time: Apr 05, 2024 04:09 PM Reporting Lab: [facility] [place] [facility] [address] [address] Performing Lab: [facility] [place] [facility] [address] [address] [facility] [place] [facility] CBC AND DIFF (AUTO) LYMPHOCYTE S [#/VOLUME] IN BLOOD BY AUTOMATED COUNT 1.48 10*3/uL 1.00 - 3.20 04/09 Specimen Type: BLOOD No comment entered. Ordering Provider: RONNIE YEPEZ Report Released Date/Time: Apr 05, 2024 04:09 PM Reporting Lab: [facility] [place] [facility] [address] [address] Performing Lab: [facility] [place] [facility] [address] [address] [place] [facility] [place] [facility] CBC AND DIFF (AUTO) EOSINOPHIL S [#/VOLUME] IN BLOOD BY AUTOMATED COUNT 0.20 10*3/uL 0.03 - 0.44 04/09 Specimen Type: BLOOD No comment entered. Ordering Provider: RONNIE YEPEZ Report Released Date/Time: Apr 05, 2024 04:09 PM Reporting Lab: [facility] [place] [facility] [address] [address] Performing Lab: [facility] [place] [facility] [address] [address] [facility] [place] [facility] CBC AND DIFF (AUTO) BASOPHILS [#/VOLUME] IN BLOOD BY AUTOMATED COUNT 0.04 10*3/uL 0.01 - 0.13 04/09 Specimen Type: BLOOD No comment entered. Ordering Provider: RONNIE YEPEZ Report Released Date/Time: Apr 05, 2024 04:09 PM Reporting Lab: [facility] [place] [facility] [address] [address] Performing Lab: [facility] [place] [address] [address] [place] [facility] [place] [facility] CBC AND DIFF (AUTO) IMMATURE GRANULOCYT ES/100 LEUKOCYTES IN BLOOD BY AUTOMATED COUNT 1.3 0.0 - 0.7 04/09 H Specimen Type: BLOOD No comment entered. Ordering Provider: RONNIE YEPEZ Report Released Date/Time: Apr 05, 2024 04:09 PM Reporting Lab: [facility] [place] [facility] [address] [address] Performing Lab: [facility] [place] [facility] [address] [address] [facility] [place] [facility] CBC AND DIFF (AUTO) IMMATURE GRANULOCYT ES [#/VOLUME] IN BLOOD 0.07 10*3/uL 0.00 - 0.06 04/09 H Specimen Type: BLOOD No comment entered. Ordering Provider: RONNIE YEPEZ Report Released Date/Time: Apr 05, 2024 04:09 PM Reporting Lab: [facility] [place] [facility] [address] [address] Performing Lab: [facility] [place] [facility] [address] [address] [facility] [place] [facility] CBC AND DIFF (AUTO) NRBC % 0.0 0.0 - 0.0 04/09 Specimen Type: BLOOD No comment entered. Ordering Provider: RONNIE YEPEZ Report Released Date/Time: Apr 05, 2024 04:09 PM Reporting Lab: [facility] [address] [address] Performing Lab: [facility] [address] [address] [facility] CBC AND DIFF (AUTO) NRBC, ABS 0.00 10*3/uL 0.00 - 0.00 04/09 Specimen Type: BLOOD No comment entered. Ordering Provider: RONNIE YEPEZ Report Released Date/Time: Apr 05, 2024 04:09 PM Reporting Lab: [facility] [address] [address] Performing Lab: [facility] [address] [address] [facility] CREATINI NE EGFR PANEL CREATININE [MASS/VOLU ME] IN SERUM OR PLASMA 1.10 mg/dL 0.5 - 1.5 07/12 Specimen Type: PLASMA No comment entered. Ordering Provider: EMMY HARTMANN Report Released Date/Time: Jul 11, 2023 09:21 AM Reporting Lab: [facility] [address] [address] Performing Lab: [facility] [address] [address] [facility] CREATINI NE EGFR PANEL GLOMERULAR FILTRATION RATE/1.73 SQ M.PREDICTE D [VOLUME RATE/AREA] IN SERUM, PLASMA OR BLOOD BY CREATININE -BASED FORMULA (CKD-EPI 2020) 66 60 07/12 Specimen Type: PLASMA No comment entered. Ordering Provider: EMMY HARTMANN Report Released Date/Time: Jul 11, 2023 09:21 AM Reporting Lab: [facility] [address] [facility] [address] Performing Lab: [facility] [address] [facility] [address] [facility] TSH THYROTROPI N [UNITS/VOL UME] IN SERUM OR PLASMA 3.65 u[IU]/mL 0.35 - 5.00 04/09 Specimen Type: SERUM No comment entered. Ordering Provider: RONNIE YEPEZ Report Released Date/Time: Apr 07, 2023 04:15 PM Reporting Lab: [facility]TR[facility]ENTERUSE[address] [address] Performing Lab: [facility] W[facility]N [facility]ENTER[facility] [address] [facility]USE [facility] BASIC METABOLI C PANEL (fasting ) UREA NITROGEN [MASS/VOLU ME] IN SERUM OR PLASMA 18 mg/dL 7 - 25 04/09 Specimen Type: SERUM No comment entered. Ordering Provider: RONNIE YEPEZ Report Released Date/Time: Apr 07, 2023 04:15 PM Reporting Lab: [facility]ENTERUSE[address] [address] Performing Lab: [facility]ENTER[facility] [address] [facility]USE [facility] BASIC METABOLI C PANEL (fasting ) GLUCOSE [MASS/VOLU ME] IN SERUM OR PLASMA 109 mg/dL 65 - 100 04/09 H Specimen Type: SERUM No comment entered. Ordering Provider: RONNIE YEPEZ Report Released Date/Time: Apr 07, 2023 04:15 PM Reporting Lab: [facility]ITALTR[facility]ENTERUSE[address] [address] Performing Lab: [facility] W[facility]ENTERUSE[address] [address] [facility] WSN [facility] BASIC METABOLI C PANEL (fasting ) SODIUM [MOLES/VOL UME] IN SERUM OR PLASMA 139 mmol/L 135 - 145 04/09 Specimen Type: SERUM No comment entered. Ordering Provider: RONNIE YEPEZ Report Released Date/Time: Apr 07, 2023 04:15 PM Reporting Lab: [facility]ITALTRN [facility]ENTERUSE[address] [address] Performing Lab: [place] [facility] [place] [facility] [address] [address] [facility] [place] [facility] BASIC METABOLI C PANEL (fasting ) POTASSIUM [MOLES/VOL UME] IN SERUM OR PLASMA 4.3 mmol/L 3.5 - 5.0 04/09 Specimen Type: SERUM No comment entered. Ordering Provider: RONNIE YEPEZ Report Released Date/Time: Apr 07, 2023 04:15 PM Reporting Lab: [place] [facility] [place] [facility] [address] [address] Performing Lab: [place] [facility] [place] [facility] [address] [address] [facility] [place] [facility] BASIC METABOLI C PANEL (fasting ) CHLORIDE [MOLES/VOL UME] IN SERUM OR PLASMA 105 mmol/L 100 - 110 04/09 Specimen Type: SERUM No comment entered. Ordering Provider: RONNIE YEPEZ Report Released Date/Time: Apr 07, 2023 04:15 PM Reporting Lab: [facility] [place] [facility] [address] [address] Performing Lab: [place] [facility] [place] [facility] [address] [address] [facility]USE [facility] BASIC METABOLI C PANEL (fasting ) CARBON DIOXIDE, TOTAL [MOLES/VOL UME] IN SERUM OR PLASMA 25 meq/L 20 - 30 04/09 Specimen Type: SERUM No comment entered. Ordering Provider: RONNIE YEPEZ Report Released Date/Time: Apr 07, 2023 04:15 PM Reporting Lab: [facility] [place] [place] [facility] [address] [address] Performing Lab: [place] [facility] [place] [facility] [address] [address] [facility] [place] [facility] BASIC METABOLI C PANEL (fasting ) CREATININE [MASS/VOLU ME] IN SERUM OR PLASMA 1.00 mg/dL 0.50 - 1.40 04/09 Specimen Type: SERUM No comment entered. Ordering Provider: RONNIE YEPEZ Report Released Date/Time: Apr 07, 2023 04:15 PM Reporting Lab: [place] [facility] [place] [facility] [address] [address] Performing Lab: [place] [facility] [place] [facility] [address] [address] [place] [facility] [place] [facility] BASIC METABOLI C PANEL (fasting ) GLOMERULAR FILTRATION RATE/1.73 SQ M.PREDICTE D [VOLUME RATE/AREA] IN SERUM, PLASMA OR BLOOD BY CREATININE -BASED FORMULA (CKD-EPI 2020) 74 mL/min 60 04/09 Specimen Type: SERUM No comment entered. Ordering Provider: RONNIE YEPEZ Report Released Date/Time: Apr 07, 2023 04:15 PM Reporting Lab: [place] [facility] [place] [facility] [address] [address] Performing Lab: [place] [facility] [place] [facility] [address] [address] [place] [facility] Vital Signs Combined list of inpatient and outpatient Vital Signs from Department of Defense and Veterans Affairs, ranging from 12 months to all on record, depending upon the facility. Vital Sign Value Date Comments Source PAIN 0 07/21/2024 14[facility]27:13 [facility] TEMPERATURE 98.4 07/21/2024 14:27:13 [facility] SYSTOLIC BLOOD PRESSURE 164 07/14/19 25 12:40:38 [facility] DIASTOLIC BLOOD PRESSURE 88 025 12:40:38 [facility] PULSE OXIMETRY 98 07/14/2024 12:40:38 [facility] WEIGHT 229 07/14/2024 12:40:38 [facility] BMI 31 kg/m2 07/14/2024 12:40:38 [facility] PAIN 0 07/14/2024 12:40:38 [facility] HEIGHT 72 07/14/2024 12:40:38 [facility] TEMPERATURE 96.1 07/14/2024 12:40:38 [facility] PULSE 67 07/14/2024 12:40:38 [facility] RESPIRATION 18 07/14/2024 12:40:38 [facility] SYSTOLIC BLOOD PRESSURE 140 04/21/20 24 13:29:02 [...] ADM Date DC Date Status Disposition Source [place] [facility] [facility] Outpatient Encounter [id number] 04/10 [place] [facility] [facility] [place] [facility] OFFICE O/P EST LOW 20-29 MIN [id number] Diagnos is: ICD-10- CM 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 JESSICA YEPEZ RD D 04/16 [place] [facility] [place] [facility] [place] [place] [facility] OFF/OP EST MAY X REQ PHY/QHP [id number] Diagnos is: ICD-10- CM Z23 Encount er for immuniz atyasmin JESSICA YEPEZ RD D 04/25 [place] [facility] [place] [facility] [place] [place] [facility] OFFICE O/P EST LOW 20-29 MIN [id number] Diagnos is: ICD-10- CM I89.0 Lymphed milo, not elsewhe re classif ied SCOTT SANTIAGO D 05/22 [place] [facility] [facility] [place] [facility] Outpatient Encounter [id number] 06/04 [place] [facility] [facility] [place] [facility] OFFICE O/P EST SF 10-19 MIN [id number] Diagnos is: ICD-10- CM R60.9 Edema, unspeci fied SCOTT SANTIAGO D 06/05 [place] [facility] [facility] OFFICE O/P NEW MOD 45-59 MIN [id number] Diagnos is: ICD-10- CM I87.2 Venous insuffi ciency (chroni c) (periph eral) TOBIAS MEEHAN MD 06/07 [facility] ORTHOTIC MGMT&TRAIN G 1ST ENC [id number] Diagnos is: ICD-10- CM R60.0 Localiz ed edema SEANRuddy ACK 06/07 [facility] Outpatient Encounter [id number] SIDSHAMARRuddy ACK 06/08 [facility] OFFICE O/P EST LOW 20 MIN [id number] Diagnos is: ICD-10- CM I89.0 Lymphed milo, not elsewhe re classif ied SA JEF ALMAGUER 07/12 [facility] Outpatient Encounter [id number] EMA BAKER 08/16 [facility] [place] [facility] OFFICE O/P EST MOD 30 MIN [id number] Diagnos is: ICD-10- CM M21.371 Foot drop, right foot SCOTT SANTIAGO D 10/01 [facility] Outpatient Encounter [id number] 10/03 [facility] [place] Outpatient Encounter [id number] SCOTT SANTIAGO D 11/29 [facility] [place] [facility] [place] Outpatient [facility]counter [id number] 12/10 [facility] [place] [place] [facility] [place] OFFICE O/P EST LOW 20 MIN [id number] Diagnos is: ICD-10- CM R60.0 Localiz ed edema SCOTT SANTIAGO D 12/30 [facility] [place] [facility] DIABETIC CUSTOM MOLDED SHOE [id number] Diagnos is: ICD-10- CM M20.40 Other hammer toe(s) (acquir ed), unspeci fied foot DE LA CRUZGALA TT ANJUM 01/16 [facility] DIABETIC CUSTOM MOLDED SHOE [id number] Diagnos is: ICD-10- CM M21.371 Foot drop, right foot DI BOTELLO JUAN M 02/04 [facility] OFFICE O/P EST LOW 20 MIN [id number] Diagnos is: ICD-10- CM I10 Essenti al (primar y) hyperte JESSICA Fleming RD 04/18 [facility] [place] [place] [facility] [place] OFFICE O/P EST MOD 30 MIN [id number] Diagnos is: ICD-10- CM I10 Essenti al (primar y) hyperte JESSICA Fleming RD 04/18 [facility] [place] [place] [facility] [place] OFF/OP CONSLTJ NEW/EST HI 55 [id number] Diagnos is: ICD-10- CM M21.371 Foot drop, right foot JOEY ZHENG THI 04/21 [facility] [place] [place] [facility] Outpatient Encounter [id number] 04/21 [facility] Outpatient Encounter [id number] 05/05 [facility] [place] [facility] OFFICE O/P EST SF 10 MIN [id number] Diagnos is: ICD-10- CM I89.0 Lymphed milo, not elsewhe re classif ied MAXINE FAJARDO MD 07/14 [facility] ORTHOTIC MGMT&TRAIN G 1ST ENC [id number] Diagnos is: ICD-10- CM I87.2 Venous insuffi ciency (chroni c) (periph eral) SHAHID,WILL MARK 07/14 [facility] Outpatient Encounter [id number] SHAHID,WILL MARK 07/16 [facility] [place] [facility] Outpatient Encounter [id number] 07/17 [facility] [place] [facility] [place] [facility] OFFICE O/P EST LOW 20 MIN [id number] Diagnos is: ICD-10- CM M21.371 Foot drop, right foot FOSTER,SCOTT RLES D 07/21 [facility] [place] [facility] [place] [facility] OFFICE O/P EST LOW 20 MIN [id number] Diagnos is: ICD-10- CM M21.371 Foot drop, right foot FOSTER,SCOTT RLES D 07/28 [facility] [place] [facility] Social History Combined list of available smoking, tobacco, and other social history from Department of Defense and Veterans Affairs facilities. Social History Type Response Date Comment Sourc e Tobacco smoking status NHIS VA-TOBACCO NEVER USED 04/18/2024 [facility] [place] History of tobacco use VA-TOBACCO NEVER USED 04/16/2023 [facility] History of tobacco use VA-TOBACCO NEVER USED 05/09/2022 [facility] History of tobacco use VA-TOBACCO NEVER USED 05/10/2021 [facility] History of tobacco use VA-TOBACCO NEVER USED 05/17/2020 [facility] History of tobacco use [place]-TOBACCO NEVER USED 04/15/2018 [facility] History of tobacco use LIFETIME NON-TOBACCO USER 04/17/2017 [facility] History of tobacco use LIFETIME NON-TOBACCO USER 04/13/2016 [facility] History of tobacco use FORMER SMOKER - <100 LIFETIME CIGARETTES 04/20/2010 [facility] History of tobacco use HISTORY OF SMOKING 08/12/2004 [facility] History of tobacco use HISTORY OF SMOKING 05/29/2003 [facility] Plan of Care List of future care activities from Department of Veterans Affairs facilities. Additional future care activities may be listed in the Assessment and Plan section. Date/Time Care Activity Care Activity Detail Facili ty 01/19/2025 AMBULATORY - MEDICINE AMBULATORY - MEDICI [facility]
--- OUTSIDE RECORDS SUMMARY | 2024-10-02 18:01 | XMS_ITS | Encounter Summary ---
Author Name [facility] [place] Address [address] [place] [address] Care Team Providers Care Smalltalk Developer Name Role Phone TERRY YEPEZ Primary Care [...] Patient's Relationship to Policy Celeste RUSS BCBS [facility] MEDICARE SUPPLEMEN RYAN PSUED O MEDEX BRONZ E October 17, 2003 [id number] OCTAVIA,DAKOTA CHARD PATIENT BCBS [place] MEDICARE SUPPLEMEN RYAN MEDEX BRONZ E October 17, 2003 [id number] OCTAVIA,RI CHARD PATIENT BCBS [place] MEDICARE SUPPLEMEN RYAN MEDEX BRONZ E October 17, 2003 [id number] OCTAVIA,RI CHARD PATIENT BCBS [facility] MEDICARE SUPPLEMEN RYAN PSUED O MEDEX BRONZ E October 17, 2003 [id number] OCTAVIA,DAKOTA CHARD PATIENT MEDICARE (WNR) MEDICARE (M) PART A October 17, 2003 PART A [id number] DAKOTA DUDLEYD PATIENT MEDICARE (WNR) MEDICARE (M) PART B October 17, 2003 PART B [id number] [phone] DAKOTA DUDLEY PATIENT MEDICARE (WNR) MEDICARE (M) PART A October 17, 2003 PART A [id number] DAKOTA DUDLEYD PATIENT MEDICARE (WNR) MEDICARE (M) PART B October 17, 2003 PART B [id number] DAKOTA DUDLEY PATIENT MEDICARE (WNR) MEDICARE (M) PART A October 17, 2003 PART A [id number] [phone] DAKOTA DUDLEY PATIENT MEDICARE (WNR) MEDICARE (M) PART B October 17, 2003 PART B [id number] [phone] DAKOTA DUDLEY PATIENT MEDICARE (WNR) MEDICARE (M) PART A October 17, 2003 PART A [id number] DAKOTA DUDLEY PATIENT MEDICARE (WNR) MEDICARE (M) PART B October 17, 2003 PART B [id number] DAKOTA DUDLEY PATIENT Selected Encounter This section includes the information on record at [place] for the Encounter. Date/Time Encounter Type Encounter Description Reason Provider Source Jul 14, 2024 01:00 PM OFFICE O/P EST SF 10 MIN VASCULAR SURGERY ICD-10-CM I89.0 Lymphedema, not elsewhere classified GYPSY FAJARDO MD [facility] Encounter Template Text not used by [place] Assessments - Encounter Diagnoses This section includes the primary and secondary diagnoses documented for the Encounter. Date/Time Primary/Secondary Diagnosis Diagnosis Name Provider Source Aug 12, 2024 08:26 PM PRIMARY Lymphedema, not elsewhere classified NETTIE VELIZ [facility] Plan of Treatment: Future Appointments (+ 6 months) and Future Tests (+/- 45 days) The Plan of Treatment section includes future care activities for the patient from all [place] treatmentfacilities. This section includes future appointments and future orders which are active, pending or scheduled. Future Appointments This section includes appointments that were scheduled to occur 6 months from the date of the Encounter, up to a maximum of 20 appointments. The data comes from all [place] treatment facilities. Appointment Date/Time Appointment Type Appointme nt Facility Name Jul 21, 2024 02:30 PM AMBULATORY - MEDICINE [place] [facility] [place] [facility] Jul 28, 2024 01:00 PM [facility]ORY [facility] Vital Signs: All taken on the encounter date This section contains inpatient and outpatient Vital Signs collected on the date of the Encounter. Date/Time Temperature Pulse Blood Pressure Respiratory Rate SP02 Pain Height Weight Body Mass Index Source Jul 14, 2024 12:40 PM 96.1 67 164/88 18 98 0 72 229 31 [facility] Encounter Notes: All associated encounter notes [...] CONFIDENTIAL SURGICAL PROC BRIEF SUMMARY pg. 1 ILNA DUDLEY [id number] : 1940 MEDS: OUTPT MEDICATIONS: NONE No [...] of compression stockings. /tha/ Marion Momin DO Edge Bander Hand Signed: 07/14/2024 13:40 MARION MOMIN [facility]
--- OUTSIDE RECORDS SUMMARY | 2024-10-02 18:01 | XMS_ITS ---
Author Name [facility] [place] Organization [place] Address [address] [place] [address] Care Team Providers Care Certified Control Systems Technician Name Role Phone TERRY YEPEZ Primary [...] Relationship to Policy Celeste RUSS [place]BS [place] MED[place]ARE SUPPLEMEN RYAN PSUED O MEDEX BRONZ E October 17, 2003 [id number] OCTAVIA,DAKOTA CHARD PATIENT BCBS [place] MEDICARE SUPPLEMEN RYAN MEDEX BRONZ E October 17, 2003 [id number] [phone] OCTAVIA,RI CHARD PATIENT BCBS [place] MEDICARE SUPPLEMEN RYAN MEDEX BRONZ E October 17, 2003 [id number] DAKOTA DUDLEY CHARD PATIENT BCBS OF [facility] MEDICARE SUPPLEMEN RYAN PSUED O MEDEX BRONZ E October 17, 2003 [id number] OCTAVIA,RI CHARD PATIENT MEDICARE (WNR) MEDICARE (M) PART A October 17, 2003 PART A [id number] DAKOTA DUDLEY PATIENT MEDICARE (WNR) MEDICARE (M) PART B October 17, 2003 PART B [id number] DAKOTA DUDLEY PATIENT MEDICARE (WNR) MEDICARE (M) PART A October 17, 2003 PART A [id number] [phone] DAKOTA DUDLEYD PATIENT MEDICARE (WNR) MEDICARE (M) PART B October 17, 2003 PART B [id number] DAKOTA DUDLEY PATIENT MEDICARE (WNR) MEDICARE (M) PART A October 17, 2003 PART A [id number] [phone] DAKOTA DUDLEY PATIENT MEDICARE (WNR) MEDICARE (M) PART B October 17, 2003 PART B [id number] DAKOTA DUDLEY PATIENT MEDICARE (WNR) MEDICARE (M) PART A October 17, 2003 PART A [id number] DAKOTA DUDLEY PATIENT MEDICARE (WNR) MEDICARE (M) PART B October 17, 2003 PART B [id number] DAKOTA DUDLEY PATIENT Selected Encounter This section includes the information on record at [place] for the Encounter. Date/Time Encounter Type Encounter Description Reason Provider Source Jul 28, 2024 01:00 PM OFFICE O/P EST LOW 20 MIN PODIATRY ICD-10-CM M21.371 Foot drop, right foot TIMUR NAVA Philip Encounter Template Text not used by MD Assessments - Encounter Diagnoses This section includes the primary and secondary diagnoses documented for the Encounter. Date/Time Primary/Secondary Diagnosis Diagnosis Name Provider Source Sep 13, 2024 06:33 AM PRIMARY Foot drop, right foot TIMUR NAVA [place] [facility] [place] [place] [facility] Plan of Treatment: Future Appointments (+ [...] 19, 2025 02:30 PM AMBULATORY - MEDICINE MD C [facility] [place] [facility] Social History: Smoking Status (Most current) [...] 18, 2024 08:30 AM VA-TOBACCO NEVER USED MD [facility] [place] [facility] Tobacco Use History This section includes a history of the smoking, or tobacco-related health factors, that were collected on or before the date of the Encounter. The data comes from the [place] facility where the Encounter took place. Date/Time Smoking Status/Tobacco Use Comment F acility Apr 16, 2023 09:30 AM VA-TOBACCO NEVER USED [facility] [place] [facility] May 09, 2022 09:00 AM VA-TOBACCO NEVER USED [facility] [place] [facility] May 10, 2021 08:00 AM VA-TOBACCO NEVER USED [facility] [place] [facility] May 17, 2020 03:00 PM VA-TOBACCO NEVER USED [facility] [place] [facility] Apr 15, 2018 09:31 AM VA-TOBACCO NEVER USED [facility] [place] [facility] Apr 17, 2017 08:56 AM LIFETIME NON-TOBACCO USER [facility] [place] [facility] Apr 13, 2016 08:54 AM LIFETIME NON-TOBACCO USER [facility] [place] [facility] Apr 20, 2010 08:59 AM FORMER SMOKER - <1 00 LIFETIME CIGARETTES [facility] [place] [facility] Aug 12, 2004 09:12 AM HISTORY OF SMOKING [facility] [place] [facility] May 29, 2003 01:11 PM HISTORY OF SMOKING [facility] [place] [facility] May 29, 2003 01:11 PM QUIT [...] NAVA EXP COSIGNER: URGENCY: STATUS: COMPLETED Podiatry [facility] Follow up Provider: Timur Nava Date: JUL 28, 2024 [address] DUDLEY [address] [place] [id number] October 85 MALE [id number] PATIENT PHONE - Primary Care: TERRY YEPEZ [...] list may not be complete. Please check [facility]. FACILITY ALLERGY/ADR -------- No Remote Allergy/ADR Data [...] as results of the physical exam and coding consultant opinions and recommendations as sought. Alternatives [...] on this visit was given information My [employer] service and encouraged to enroll if not already having done so. /tha/ TIMUR NAVA DPM PODIATRY ATTENDING Signed: 07/29/2024 14:50 TIMUR NAVA MD [facility]
--- OUTSIDE RECORDS SUMMARY | 2024-10-02 18:01 | XMS_ITS | Encounter Summary ---
Author Name [facility] [place] Address [address] [place] [address] Care Team Providers Care Fuel System Maintenance Supervisor Name Role Phone TERRY YEPEZ Primary [...] Patient's Relationship to Policy Celeste RUSS BCBS [facility] MEDICARE SUPPLEMEN RYAN PSUED O MEDEX BRONZ E October 17, 2003 [id number] DAKOTA DUDLEY CHARD PATIENT BCBS [place] MEDICARE SUPPLEMEN RYAN MEDEX BRONZ E October 17, 2003 [id number] DAKOTA DUDLEY CHARD PATIENT BCBS [place] MEDICARE SUPPLEMEN RYAN MEDEX BRONZ E October 17, 2003 [id number] DAKOTA DUDLEY CHARD PATIENT BCBS [facility] MEDICARE SUPPLEMEN RYAN PSUED O MEDEX BRONZ E October 17, 2003 [id number] DAKOTA DUDLEY CHARD PATIENT MEDICARE (WNR) MEDICARE (M) PART A October 17, 2003 PART A [id number] DAKOTA DUDLEY PATIENT MEDICARE (WNR) MEDICARE (M) PART B October 17, 2003 PART B [id number] DAKOTA DUDLEY PATIENT MEDICARE (WNR) MEDICARE (M) PART A October 17, 2003 PART A [id number] DAKOTA DUDLEY PATIENT MEDICARE (WNR) MEDICARE (M) PART B October 17, 2003 PART B [id number] DAKOTA DUDLEY PATIENT MEDICARE (WNR) MEDICARE (M) PART A October 17, 2003 PART A [id number] [phone] DAKOTA DUDLEY PATIENT MEDICARE (WNR) MEDICARE (M) PART B October 17, 2003 PART B [id number] DAKOTA DUDLEY PATIENT MEDICARE (WNR) MEDICARE (M) PART A October 17, 2003 PART A [id number] [phone] DAKOTA DUDLEY PATIENT MEDICARE (WNR) MEDICARE (M) PART B October 17, 2003 PART B [id number] [phone] DAKOTA DUDLEY PATIENT Selected Encounter This section includes the information on record at [place] for the Encounter. Date/Time Encounter Type Encounter Description Reason Provider Source Jul 16, 2024 08:29 AM Outpatient Encounter PROSTHETICS/ORTHOTIC S EMILY SHAHID Encounter Template Text not used by [place] Plan of Treatment: Future Appointments (+ 6 months) and Future Tests (+/- 45 days) The Plan of Treatment section includes future care activities for the patient from all [place] treatmentfacilities. This section includes future appointments and future orders which are active, pending or scheduled. Future Appointments This section includes appointments that were scheduled to occur 6 months from the date of the Encounter, up to a maximum of 20 appointments. The data comes from all [place] treatment facilities. Appointment Date/Time Appointment Type Appointme nt Facility Name Jul 21, 2024 02:30 PM AMBULATORY - MEDICINE [facility] Jul 28, 2024 01:00 PM [facility]BUL[facility]ORY - [facility]
== END 2024-10-02 16:36 | disposition home or self-care (01) ==
LOC: HO.HMCH 15:20
PROVIDERS: PCP Internal Medicine; Visit Provider Internal Medicine
DX: Z00.00 Encounter for general adult medical examination without abnormal findings (principal)

== ENCOUNTER → 2024-10-02 15:19 | Outpatient (BNVA) | payer MEDICARE, SELFPAY | PROVIDERS: PCP Internal Medicine; Visit Provider Internal Medicine ==

== ENCOUNTER 2024-10-09 08:15 | Outpatient (AMB) | payer MEDICARE, SELFPAY ==
[2024-10-09 08:30] LABS: Prothrombin Time Whole Bld POC 35.2 sec (11.1-13.5); ~PT, ~INR - Anti Coag Clinic 2.9 (0.9-1.1)
--- OUTSIDE RECORDS SUMMARY | 2024-10-09 08:30 | XMS_ITS | Clinical Summary ---
Author Organization [address] [place] [address] [place] [phone] Phone Care Team Providers Care Technology Resource Teacher Name Role Phone Royal Aguila MD Primary Care Provider [phone] Allergies Active Allergy Reactions Criticality Noted Date [...] Description 08/18/2024 3:30 PM EST Ancillary Procedure [facility] Cardiology [facility] [address] [place] [address] Encounter for adjustment or management of cardiac [...] Description 02/18/2025 3:30 PM EDT Ancillary Procedure [facility] Cardiology [facility] [address] [place] [address] 04/13/2025 9:25 AM EDT Office Visit [facility] Cardiology [facility] [address] [place] [address] William Damon MD [address] [address] Health Maintenance Due Date Last Done Comments Cholesterol Screening (Lipid Panel) 05/27/2022 Depression Screening 05/27/2022 Falls Risk Assessment 05/27/2022 Social Influencers of Health Screening 05/27/2022 Hypertension/CHF/CAD Annual BMP Blood Test 07/17/2023 Medicare Annual Wellness Visit 08/25/2023 08/24/2022 COVID-19 Vaccine ( season) 2024 04/18/2024, 04/16/2023, 03/28/2022, Additional history exists DTaP,Tdap,and Td Vaccines (5 - Td or Tdap) 04/16/2033 04/16/2023, 09/26/2016, 05/20/2013, Additional history exists Pneumococcal Vaccine: 50+ Years Completed 05/02/2018, 05/17/2015, 06/01/2014, Additional history exists Zoster Vaccines Completed 04/14/2019, 04/15/2018 RSV Immunization Adult Patients Completed 04/25/2023 Influenza Vaccine Completed 04/18/2024, , 04/15/2022, Additional [...] this topic Medical Devices Implanted Type Area Sole Leveler Device Identifier Shelf Expiration Date Model / Serial / Lot Abbt-Stju Assurity Mri [id number] Implanted:04/2020 (Quantity not on file) Cardiac Pacemaker [facility] [employer] [facility] MRI 2272 / [id number] / Procedures Procedure Name Priority Date/Time Associated Diagnosis Comments CARDIAC DEVICE CHECK- [facility] Routine 08/18/2024 3:38 PM EST Encounter for adjustment or management of cardiac device from Last 3 Months Results * CARDIAC DEVICE CHECK- [facility] (08/18/2024 3:38 PM EST) Date Time Interrogation Session [id number] CV DEVICE CHECK Implantable Pulse Generator Sole Leveler [employer] CV DEVICE CHECK Implantable Pulse Generator Type IPG CV DEVICE CHECK Implantable Pulse Generator Model Annabel MRI 2272 CV DEVICE CHECK Implantable Pulse Generator Serial Number [id number] CV DEVICE CHECK Implantable Pulse Generator Implant [...] reviewed and tested * Presenting Rhythm: AF NUMERICAL CONTROL OPERATOR 80s * Underlying Rhythm: AF VS [...] reviewed and tested * Presenting Rhythm: AF NUMERICAL CONTROL OPERATOR 80s * Underlying Rhythm: AF VS 60s * Heart Rate Histograms reviewed * Pacing and Detection Parameters were evaluated us Order Referral Cardiovascular CV IMPLANTABLE CAR DIAC DEVICE PROCEDURES Final Result from Last 3 Months Insurance MEDICARE [facility] Care Teams Technology Resource Teacher Relationship Specialty Start Date End Date Royal Aguila MD [address] [place] [address] [address] [facility] [place] [address] PCP - General Internal Medicine 05/15/20
--- OUTSIDE RECORDS SUMMARY | 2024-10-09 08:31 | XMS_ITS | Continuity of Care Document ---
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 Superficial basal cell carcinoma Active Condition Feb 28, 2006 Entered By: ALFONSO ARCINIEGA Comment: Resected from L. Pretibial 2005. [facility] [place] [facility] Screening for Malignant Neoplasms of colon Inactive Condition 05/29/2003 May 29, 2003 Entered By: JOSH RODRIGUEZ Comment: colonscopy 02/18 one benign polyp, Mother had colon CA[facility] [place] [facility] Diagnosis: ICD-10-CM M21.371 Foot drop, right foot Active [facility] [place] [facility] Diagnosis: ICD-10-CM I87.2 Venous insufficiency (chronic) (peripheral) Active Diagnosis [facility] Diagnosis: ICD-10-CM I89.0 Lymphedema, not elsewhere classified Active Diagnosis [facility] Diagnosis: ICD-10-CM I10 Essential (primary) hypertension Active [facility] [place] [facility] Diagnosis: ICD-10-CM M20.40 Other hammer toe(s) (acquired), unspecified foot Active Diagnosis [facility] [place] [facility] Diagnosis: ICD-10-CM R60.0 Localized edema Active Diagnosis [facility] [place] [facility] Diagnosis: ICD-10-CM R60.9 Edema, unspecified [facility] [place] [facility] Diagnosis: ICD-10-CM Z23 Encounter for immunization Active [facility] [place] [facility] Medications Combined list of outpatient medications from Department of Defense and Veterans Affairs facilities.Medications provided include 1) outpatient medications from the last 15 months, and 2) patient-reported medications. Medication Details Route Status Patient Instructions Prescription Expires Prescription Number Last Dispense Date Ordering Provider Order Date Order Qty Source FUROSEMIDE 20MG TAB TAKE ONE TABLET BY MOUTH EVERY DAY ORAL ACTIVE NED YEPEZ [facility] [place] [facility] LEVOTHYROXI NE NA 50MCG TAB (SYNTHROID) TAKE ONE TABLET BY MOUTH EVERY DAY ORAL ACTIVE NED YEPEZ 2011 [facility] [place] [facility] LISINOPRIL 20MG TAB TAKE ONE TABLET BY MOUTH EVERY DAY ORAL ACTIVE LUCHO,HOW FELIPA D 2011 [facility] [place] [facility] METOPROLOL SUCCINATE TAB,SA TAKE 12.5MG BY MOUTH EVERY DAY ORAL ACTIVE LUCHO,HOW FELIPA D 2011 [facility] [place] [facility] MULTIVITAMI NS W/MINERALS TAB TAKE ONE TABLET BY MOUTH ORAL ACTIVE EMILY RODRIGUEZ 2004 [facility] [place] [facility] SIMVASTATIN 40MG TAB TAKE ONE-HALF TABLET BY MOUTH AT BEDTIME ORAL ACTIVE LUCHO,HOW FELIPA D [facility] WARFARIN NA (MOORE STATE) 10MG TAB TAKE DIRECTED BY MOUTH WITH DIRECTIO NS PROVIDED FROM THE [facility] ORAL ACTIVE LUCHO,HOW FELIPA D [address] [facility] Allergies, Adverse Reactions, Alerts Combined list of allergies from Department of Defense and Veterans Affairs facilities. It does not include entries that were removed or entered in error. Substance Category Reaction Severity Reaction type Status Date Reported Comments Source AMOXICILLIN Propensity to adverse reactions to drug (finding) Eruption active 3 [facility] [place] [facility] CALCIUM Propensity to adverse reactions to drug (finding) Eruption active 3 [facility] [place] [facility] MINOCYCLINE Propensity to adverse reactions to drug (finding) Eruption active 3 [facility] [place] [facility] Immunizations Combined list of available immunizations from the Department of Defense and Veterans Affairs facilities. 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 INFLUENZA, HIGH-DOSE, TRIVALENT, PF 2023 KAILEY,CASSI A RIGHT DELTO ID [id number] 135 complet ed Completed Series, [facility] RSV, BIVALENT, PROTEIN SUBUNIT RSVPREF, DILUENT RECONSTITUTED , 0.5 ML, PF 2022 CASSI BONNER RIGHT DELTO ID [id number] 305 complet ed Completed Series, [facility] COVID-19 (MODERNA), MRNA, LNP-S, PF, 50 MCG/0.5 ML (AGES 12+ YEARS) 4 2022 SHYLA HERNANDEZ M RIGHT DELTO ID [id number] 312 complet ed [facility] INFLUENZA, HIGH-DOSE, QUADRIVALENT 2022 SHYLA HERNANDEZ ER M LEFT DELTO ID [id number] 197 complet ed [facility] TDAP 2022 SHYLA HERNANDEZ M LEFT DELTO ID [id number] 115 complet ed [facility] INFLUENZA, UNSPECIFIED FORMULATION 2021 88 complet ed [facility] COVID-19 (MODERNA), MRNA, LNP-S, PF, 100 MCG OR 50 MCG DOSE 3 2020 207 complet ed [id number] [facility] INFLUENZA VACCINE, QUADRIVALENT, ADJUVANTED 2020 205 complet ed [facility] COVID-19 (MODERNA), MRNA, LNP-S, PF, 100 MCG/0.5 ML DOSE 2 2020 207 complet ed MOD; [id number]; 1 [facility] COVID-19 (MODERNA), MRNA, LNP-S, PF, 100 MCG/0.5 ML DOSE 1 2020 207 complet ed MOD; [id number]; 1 [facility] INFLUENZA, UNSPECIFIED FORMULATION 2019 88 [...] (HISTORICAL) 2005 JURGEN MARRERO 88 complet ed [place] [facility] [place] [facility] PNEUMOCOCCAL, UNSPECIFIED FORMULATION 2004 109 complet ed [place] [facility] [place] [facility] Results Combined [...] Apr 05, 2024 04:09 PM Reporting Lab: [facility] [place] [place] [facility] [address] [facility] [address] Performing Lab: [place] [facility] [place] [address] [address] [facility] [place] [facility] LIPID PANEL FASTING CHOLESTERO L [MASS/VOLU ME] IN SERUM OR PLASMA 130 mg/dL 04/09 Specimen Type: SERUM No comment entered. Ordering Provider: RONNIE YEPEZ Report Released Date/Time: Apr 05, 2024 04:09 PM Reporting Lab: [facility] [place] [facility] [address] [facility] [address] Performing Lab: [facility] [place] [address] [address] [facility] [place] [facility] LIPID PANEL FASTING TRIGLYCERI DE [MASS/VOLU ME] IN SERUM OR PLASMA 92 mg/dL 0 - 150 04/09 Specimen Type: SERUM No comment entered. Ordering Provider: RONNIE YEPEZ Report Released Date/Time: Apr 05, 2024 04:09 PM Reporting Lab: [facility] [place] [facility] [address] [facility] [address] Performing Lab: [place] [facility] [place] [address] [address] [place] [facility] [place] [facility] LIPID PANEL FASTING CHOLESTERO L IN LDL [MASS/VOLU ME] IN SERUM OR PLASMA BY CALCULATIO N 67 mg/dL 0 - 129 04/09 Specimen Type: SERUM No comment entered. Ordering Provider: RONNIE YEPEZ Report Released Date/Time: Apr 05, 2024 04:09 PM Reporting Lab: [facility] [place] [facility] [address] [facility] [address] Performing Lab: [facility] [place] [facility] [address] [facility] [address] [facility] [place] [facility] LIPID PANEL FASTING CHOLESTERO L.TOTAL/CH OLESTEROL IN HDL [MASS RATIO] IN SERUM OR PLASMA 2.9 04/09 Specimen Type: SERUM No comment entered. Ordering Provider: RONNIE YEPEZ Report Released Date/Time: Apr 05, 2024 04:09 PM Reporting Lab: [facility] [place] [facility] [address] [facility] [address] Performing Lab: [facility] [place] [facility] [address] [facility] [address] [facility] [place] [facility] LIPID PANEL FASTING CHOLESTERO L IN HDL [MASS/VOLU ME] IN SERUM OR PLASMA 45 mg/dL 40 - 60 04/09 Specimen Type: SERUM No comment entered. Ordering Provider: RONNIE YEPEZ Report Released Date/Time: Apr 05, 2024 04:09 PM Reporting Lab: [facility] [place] [facility] [address] [facility] [address] Performing Lab: [place] [facility] [place] [facility] [address] [facility] [address] [facility] [place] [facility] URINALYS IS CLEAN CATCH COLOR OF URINE Colorles s 04/09 Specimen Type: URINE Comment: If Glucose = >500 and Ketones are positive, please alert the Physician. Ordering Provider: RONNIE YEPEZ Report Released Date/Time: Apr 05, 2024 04:09 PM Reporting Lab: [facility] [place] [facility] [address] [facility] [address] Performing Lab: [place] [facility] [place] [facility] [address] [facility] [address] [place] [facility] [place] [facility] URINALYS IS CLEAN CATCH APPEARANCE OF URINE Clear 04/09 Specimen Type: URINE Comment: If Glucose = >500 and Ketones are positive, please alert the Physician. Ordering Provider: RONNIE YEPEZ Report Released Date/Time: Apr 05, 2024 04:09 PM Reporting Lab: [facility] [place] [facility] [address] [facility] [address] Performing Lab: [facility] [place] [facility] [address] [facility] [address] [facility] [place] [facility] URINALYS IS CLEAN CATCH GLUCOSE [MASS/VOLU ME] IN URINE Normalmg /dL 04/09 Specimen Type: URINE Comment: If Glucose = >500 and Ketones are positive, please alert the Physician. Ordering Provider: RONNIE YEPEZ Report Released Date/Time: Apr 05, 2024 04:09 PM Reporting Lab: [facility] [place] [address] [address] Performing Lab: [facility] [place] [facility] [address] [facility] [address] [facility] [place] [facility] URINALYS IS CLEAN CATCH KETONES [MASS/VOLU ME] IN URINE BY TEST STRIP NEGATIVE mg/dL 04/09 Specimen Type: URINE Comment: If Glucose = >500 and Ketones are positive, please alert the Physician. Ordering Provider: RONNIE YEPEZ Report Released Date/Time: Apr 05, 2024 04:09 PM Reporting Lab: [facility] [place] [place] [address] [address] Performing Lab: [place] [facility] [place] [address] [address] [facility] [place] [facility] URINALYS IS CLEAN CATCH ERYTHROCYT ES [PRESENCE] IN URINE SEDIMENT BY LIGHT MICROSCOPY NEGATIVE mg/dL 04/09 Specimen Type: URINE Comment: If Glucose = >500 and Ketones are positive, please alert the Physician. Ordering Provider: RONNIE YEPEZ Report Released Date/Time: Apr 05, 2024 04:09 PM Reporting Lab: [facility] [place] [facility] [address] [facility] [address] Performing Lab: [place] [facility] [place] [facility] [address] [facility] [address] [facility] [place] [facility] URINALYS IS CLEAN CATCH PROTEIN [MASS/VOLU ME] IN URINE BY TEST STRIP NEGATIVE mg/dL 04/09 Specimen Type: URINE Comment: If Glucose = >500 and Ketones are positive, please alert the Physician. Ordering Provider: RONNIE YEPEZ Report Released Date/Time: Apr 05, 2024 04:09 PM Reporting Lab: [facility] [place] [facility] [address] [facility] [address] Performing Lab: [place] [facility] [place] [facility] [address] [facility] [address] [facility] [place] [facility] URINALYS IS CLEAN CATCH NITRITE [PRESENCE] IN URINE NEGATIVE mg/dL 04/09 Specimen Type: URINE Comment: If Glucose = >500 and Ketones are positive, please alert the Physician. Ordering Provider: RONNIE YEPEZ Report Released Date/Time: Apr 05, 2024 04:09 PM Reporting Lab: [facility] [place] [facility] [address] [facility] [address] Performing Lab: [facility] [place] [facility] [address] [facility] [address] [facility] [place] [facility] URINALYS IS CLEAN CATCH BILIRUBIN. TOTAL [PRESENCE] IN URINE NEGATIVE mg/dL 04/09 Specimen Type: URINE Comment: If Glucose = >500 and Ketones are positive, please alert the Physician. Ordering Provider: RONNIE YEPEZ Report Released Date/Time: Apr 05, 2024 04:09 PM Reporting Lab: [place] [facility] [place] [facility] [address] [facility] [address] Performing Lab: [place] [facility] [place] [facility] [address] [facility] [address] [facility] [place] [facility] URINALYS IS CLEAN CATCH SPECIFIC GRAVITY OF URINE BY REFRACTOME TRY 1.009 1.016 - 1.022 04/09 L Specimen Type: URINE Comment: If Glucose = >500 and Ketones are positive, please alert the Physician. Ordering Provider: RONNIE YEPEZ Report Released Date/Time: Apr 05, 2024 04:09 PM Reporting Lab: [facility] [place] [facility] [address] [facility] [address] Performing Lab: [facility] [place] [facility] [address] [facility] [address] [facility] [place] [facility] URINALYS IS CLEAN CATCH PH OF URINE BY TEST STRIP 6.5 5.0 - 9.0 04/09 Specimen Type: URINE Comment: If Glucose = >500 and Ketones are positive, please alert the Physician. Ordering Provider: RONNIE YEPEZ Report Released Date/Time: Apr 05, 2024 04:09 PM Reporting Lab: [facility] [place] [facility] [address] [facility] [address] Performing Lab: [facility]GEETRN [facility] [address] [facility] URINALYS IS CLEAN CATCH UROBILINOG EN [MASS/VOLU ME] IN URINE BY TEST STRIP Normalmg /dL <2.0 - 2.0 04/09 Specimen Type: URINE Comment: If Glucose = >500 and Ketones are positive, please alert the Physician. Ordering Provider: RONNIE YEPEZ Report Released Date/Time: Apr 05, 2024 04:09 PM Reporting Lab: [facility] [place] [facility] [address] [facility] [address] Performing Lab: [facility] [place] [facility] [address] [facility] [address] [facility] [place] [facility] URINALYS IS CLEAN CATCH LEUKOCYTE ESTERASE [PRESENCE] IN URINE BY TEST STRIP TRACE 04/09 Specimen Type: URINE Comment: If Glucose = >500 and Ketones are positive, please alert the Physician. Ordering Provider: RONNIE YEPEZ Report Released Date/Time: Apr 05, 2024 04:09 PM Reporting Lab: [facility] [place] [address] [address] Performing Lab: [facility] [address] [facility] [address] [facility]ITALUSE [facility] BASIC METABOLI C PANEL (fasting ) UREA NITROGEN [MASS/VOLU ME] IN SERUM OR PLASMA 22 mg/dL 7 - 25 04/09 Specimen Type: SERUM No comment entered. Ordering Provider: RONNIE YEPEZ Report Released Date/Time: Apr 05, 2024 04:09 PM Reporting Lab: [facility]ETRN [facility] [address] [facility] [address] Performing Lab: [facility]ETRN [facility]USE[facility] [address] [facility] [address] [facility] BASIC METABOLI C PANEL (fasting ) GLUCOSE [MASS/VOLU ME] IN SERUM OR PLASMA 104 mg/dL 65 - 100 04/09 H Specimen Type: SERUM No comment entered. Ordering Provider: RONNIE YEPEZ Report Released Date/Time: Apr 05, 2024 04:09 PM Reporting Lab: [facility]N [address] [address] Performing Lab: [facility]GEETRN [facility]ITALUSE[address] [address] [facility] BASIC METABOLI C PANEL (fasting ) SODIUM [MOLES/VOL UME] IN SERUM OR PLASMA 138 mmol/L 135 - 145 04/09 Specimen Type: SERUM No comment entered. Ordering Provider: RONNIE YEPEZ Report Released Date/Time: Apr 05, 2024 04:09 PM Reporting Lab: [facility] TRN [facility] [address] [facility] [address] Performing Lab: [facility]GEETRN [facility]ITALUSE[address] [address] [facility] BASIC METABOLI C PANEL (fasting ) POTASSIUM [MOLES/VOL UME] IN SERUM OR PLASMA 4.5 mmol/L 3.5 - 5.0 04/09 Specimen Type: SERUM No comment entered. Ordering Provider: RONNIE YEPEZ Report Released Date/Time: Apr 05, 2024 04:09 PM Reporting Lab: [place] [facility] [place] [facility] [address] [facility] [address] Performing Lab: [place] [facility] [place] [facility] [address] [facility] [address] [place] [facility] [place] [facility] BASIC METABOLI C PANEL (fasting ) CHLORIDE [MOLES/VOL UME] IN SERUM OR PLASMA 104 mmol/L 100 - 110 04/09 Specimen Type: SERUM No comment entered. Ordering Provider: RONNIE YEPEZ Report Released Date/Time: Apr 05, 2024 04:09 PM Reporting Lab: [place] [facility] [place] [facility] [address] [facility] [address] Performing Lab: [place] [facility] [place] [facility] [address] [facility] [address] [facility] [place] [facility] BASIC METABOLI C PANEL (fasting ) CARBON DIOXIDE, TOTAL [MOLES/VOL UME] IN SERUM OR PLASMA 28 meq/L 20 - 30 04/09 Specimen Type: SERUM No comment entered. Ordering Provider: RONNIE YEPEZ Report Released Date/Time: Apr 05, 2024 04:09 PM Reporting Lab: [facility] [place] [facility] [address] [facility] [address] Performing Lab: [place] [facility] [place] [facility] [address] [facility] [address] [facility] [place] [facility] BASIC METABOLI C PANEL (fasting ) CREATININE [MASS/VOLU ME] IN SERUM OR PLASMA 0.90 mg/dL 0.50 - 1.40 04/09 Specimen Type: SERUM No comment entered. Ordering Provider: RONNIE YEPEZ Report Released Date/Time: Apr 05, 2024 04:09 PM Reporting Lab: [place] [facility] [place] [facility] [address] [facility] [address] Performing Lab: [place] [facility] [place] [facility] [address] [facility] [address] [facility] [place] [facility] BASIC METABOLI C PANEL (fasting ) GLOMERULAR FILTRATION RATE/1.73 SQ M.PREDICTE D [VOLUME RATE/AREA] IN SERUM, PLASMA OR BLOOD BY CREATININE -BASED FORMULA (CKD-EPI 2020) 84 mL/min 60 04/09 Specimen Type: SERUM No comment entered. Ordering Provider: RONNIE YEPEZ Report Released Date/Time: Apr 05, 2024 04:09 PM Reporting Lab: [facility]N [facility] [address] [facility] [address] Performing Lab: [place] [facility] [place] [facility]ITALUSE[facility] [address] [facility] [address] [facility] TRN [facility]ITALUSE [facility] LIVER FUNCTION PROTEIN [MASS/VOLU ME] IN SERUM OR PLASMA 7.4 g/dL 6.0 - 8.3 04/09 Specimen Type: SERUM No comment entered. Ordering Provider: RONNIE YEPEZ Report Released Date/Time: Apr 05, 2024 04:09 PM Reporting Lab: [facility] [address] Performing Lab: [facility]N [facility]ITALUSE[address] [address] [facility]RL [facility] LIVER FUNCTION ALBUMIN [MASS/VOLU ME] IN SERUM OR PLASMA 4.3 g/dL 3.5 - 5.0 04/09 Specimen Type: SERUM No comment entered. Ordering Provider: RONNIE YEPEZ Report Released Date/Time: Apr 05, 2024 04:09 PM Reporting Lab: [facility] [address] Performing Lab: [place] [facility] TRN [facility]ITALUSE[address] [address] [facility]RL.[facility]ITALN [facility] LIVER FUNCTION ALKALINE PHOSPHATAS E [ENZYMATIC ACTIVITY/V OLUME] IN SERUM OR PLASMA 58 U/L 40 - 150 04/09 Specimen Type: SERUM No comment entered. Ordering Provider: RONNIE YEPEZ Report Released Date/Time: Apr 05, 2024 04:09 PM Reporting Lab: [facility]ITAL[facility] [address] Performing Lab: [facility] TRN [facility]ITALUSE[address] [address] [facility] [place] [facility] LIVER FUNCTION ASPARTATE AMINOTRANS FERASE [ENZYMATIC ACTIVITY/V OLUME] IN SERUM OR PLASMA 21 U/L 5 - 34 04/09 Specimen Type: SERUM No comment entered. Ordering Provider: RONNIE YEPEZ Report Released Date/Time: Apr 05, 2024 04:09 PM Reporting Lab: [place] [facility] [place] [facility] [address] [facility] [address] Performing Lab: [place] [facility] [place] [facility] [address] [facility] [address] [facility] [place] [facility] LIVER FUNCTION ALANINE AMINOTRANS FERASE [ENZYMATIC ACTIVITY/V OLUME] IN SERUM OR PLASMA 25 U/L 04/09 Specimen Type: SERUM No comment entered. Ordering Provider: RONNIE YEPEZ Report Released Date/Time: Apr 05, 2024 04:09 PM Reporting Lab: [facility] [place] [place] [address] [address] Performing Lab: [place] [facility] [place] [facility] [address] [facility] [address] [facility] LIVER FUNCTION BILIRUBIN. TOTAL [MASS/VOLU ME] IN SERUM OR PLASMA 0.9 mg/dL 0.2 - 1.2 04/09 Specimen Type: SERUM No comment entered. Ordering Provider: RONNIE YEPEZ Report Released Date/Time: Apr 05, 2024 04:09 PM Reporting Lab: [facility] [place] [address] [address] Performing Lab: [facility] [place] [address] [address] [facility] MICROSCO PIC AUTOMATE D, URINE LEUKOCYTES [#/AREA] IN URINE SEDIMENT BY MICROSCOPY HIGH POWER FIELD 0-5/[HPF ] 0 - 5 04/09 Specimen Type: URINE Comment: If Glucose = >500 and Ketones are positive, please alert the Physician. Ordering Provider: RONNIE YEPEZ Report Released Date/Time: Apr 05, 2024 04:09 PM Reporting Lab: [facility] [place] [facility] [address] [facility] [address] Performing Lab: [facility] [place] [facility] [address] [facility] [address] [facility] [place] [facility] [employer]OS[employer] PIC AUTOMATE D, URINE ERYTHROCYT ES [#/AREA] IN URINE SEDIMENT BY MICROSCOPY HIGH POWER FIELD 0-2/[HPF ] 0 - 3 04/09 Specimen Type: URINE Comment: If Glucose = >500 and Ketones are positive, please alert the Physician. Ordering Provider: RONNIE YEPEZ Report Released Date/Time: Apr 05, 2024 04:09 PM Reporting Lab: [facility] [place] [facility] [address] [facility] [address] Performing Lab: [facility] [place] [facility] [address] [facility] [address] [facility] [place] [facility] CBC AND DIFF (AUTO) LEUKOCYTES [#/VOLUME] IN BLOOD BY AUTOMATED COUNT 5.27 10*3/uL 4.50 - 11.00 04/09 Specimen Type: BLOOD No comment entered. Ordering Provider: RONNIE YEPEZ Report Released Date/Time: Apr 05, 2024 04:09 PM Reporting Lab: [facility] [place] [facility] [address] [facility] [address] Performing Lab: [facility] [place] [facility] [address] [facility] [address] [facility] [place] [facility] CBC AND DIFF (AUTO) ERYTHROCYT ES [#/VOLUME] IN BLOOD BY AUTOMATED COUNT 4.15 10*6/uL 4.23 - 5.66 04/09 L Specimen Type: BLOOD No comment entered. Ordering Provider: RONNIE YEPEZ Report Released Date/Time: Apr 05, 2024 04:09 PM Reporting Lab: [facility] [place] [facility] [address] [facility] [address] Performing Lab: [facility] [place] [facility] [address] [facility] [address] [facility] [facility] CBC AND DIFF (AUTO) HEMOGLOBIN [MASS/VOLU ME] IN BLOOD 13.2 g/dL 12.8 - 17 04/09 Specimen Type: BLOOD No comment entered. Ordering Provider: RONNIE YEPEZ Report Released Date/Time: Apr 05, 2024 04:09 PM Reporting Lab: [facility] [place] [facility] [address] [facility] [address] Performing Lab: [facility] [place] [facility] [address] [facility] [address] [facility] [place] [facility] CBC AND DIFF (AUTO) HEMATOCRIT [VOLUME FRACTION] OF BLOOD BY AUTOMATED COUNT 38.2 39.2 - 50.4 04/09 L Specimen Type: BLOOD No comment entered. Ordering Provider: RONNIE YEPEZ Report Released Date/Time: Apr 05, 2024 04:09 PM Reporting Lab: [facility] [facility] [address] [facility] [address] Performing Lab: [facility] [place] [facility] [address] [facility] [address] [facility] [place] [facility] CBC AND DIFF (AUTO) MCV [ENTITIC VOLUME] BY AUTOMATED COUNT 92.0 fL 82 - 99 04/09 Specimen Type: BLOOD No comment entered. Ordering Provider: RONNIE YEPEZ Report Released Date/Time: Apr 05, 2024 04:09 PM Reporting Lab: [facility] [facility] [address] [facility] [address] Performing Lab: [facility] [facility] [address] [facility] [address] [facility] [place] [facility] CBC AND DIFF (AUTO) MCHC [MASS/VOLU ME] BY AUTOMATED COUNT 34.6 g/dL 30.8 - 35.1 04/09 Specimen Type: BLOOD No comment entered. Ordering Provider: RONNIE YEPEZ Report Released Date/Time: Apr 05, 2024 04:09 PM Reporting Lab: [facility] [facility] [address] [facility] [address] Performing Lab: [facility] [place] [facility] [address] [facility] [address] [facility] [facility] CBC AND DIFF (AUTO) PLATELETS [#/VOLUME] IN BLOOD BY AUTOMATED COUNT 138 10*3/uL 140 - 360 04/09 L Specimen Type: BLOOD No comment entered. Ordering Provider: RONNIE YEPEZ Report Released Date/Time: Apr 05, 2024 04:09 PM Reporting Lab: [facility] [place] [address] [address] Performing Lab: [facility] [place] [facility] [address] [facility] [address] [facility] [place] [facility] CBC AND DIFF (AUTO) ERYTHROCYT E DISTRIBUTI ON WIDTH [RATIO] BY AUTOMATED COUNT 13.0 12.0 - 16.0 04/09 Specimen Type: BLOOD No comment entered. Ordering Provider: RONNIE YEPEZ Report Released Date/Time: Apr 05, 2024 04:09 PM Reporting Lab: [facility] [place] [address] [address] Performing Lab: [facility] [place] [address] [address] [facility] [place] [facility] CBC AND DIFF (AUTO) MONOCYTES [#/VOLUME] IN BLOOD BY AUTOMATED COUNT 0.49 10*3/uL 0.30 - 1.10 04/09 Specimen Type: BLOOD No comment entered. Ordering Provider: RONNIE YEPEZ Report Released Date/Time: Apr 05, 2024 04:09 PM Reporting Lab: [facility] [place] [address] [address] Performing Lab: [facility] [place] [facility] [address] [facility] [address] [facility] [place] [facility] CBC AND DIFF (AUTO) MCH [ENTITIC MASS] BY AUTOMATED COUNT 31.8 pg 26.2 - 32.6 04/09 Specimen Type: BLOOD No comment entered. Ordering Provider: RONNIE YEPEZ Report Released Date/Time: Apr 05, 2024 04:09 PM Reporting Lab: [facility] [place] [address] [address] Performing Lab: [facility] [place] [facility] [address] [facility] [address] [facility] [place] [facility] CBC AND DIFF (AUTO) NEUTROPHIL S/100 LEUKOCYTES IN BLOOD BY AUTOMATED COUNT 56.7 43.7 - 75.8 04/09 Specimen Type: BLOOD No comment entered. Ordering Provider: RONNIE YEPEZ Report Released Date/Time: Apr 05, 2024 04:09 PM Reporting Lab: [facility] [place] [facility] [address] [facility] [address] Performing Lab: [facility] [place] [facility] [address] [facility] [address] [facility] [place] [facility] CBC AND DIFF (AUTO) LYMPHOCYTE S/100 LEUKOCYTES IN BLOOD BY AUTOMATED COUNT 28.1 14.0 - 42.3 04/09 Specimen Type: BLOOD No comment entered. Ordering Provider: RONNIE YEPEZ Report Released Date/Time: Apr 05, 2024 04:09 PM Reporting Lab: [facility] [place] [facility] [address] [facility] [address] Performing Lab: [facility] [place] [facility] [address] [facility] [address] [facility] [place] [facility] CBC AND DIFF (AUTO) MONOCYTES/ 100 LEUKOCYTES IN BLOOD BY AUTOMATED COUNT 9.3 5.1 - 13.7 04/09 Specimen Type: BLOOD No comment entered. Ordering Provider: RONNIE YEPEZ Report Released Date/Time: Apr 05, 2024 04:09 PM Reporting Lab: [facility] [place] [facility] [address] [facility] [address] Performing Lab: [facility] [place] [facility] [address] [facility] [address] [facility] [place] [facility] CBC AND DIFF (AUTO) EOSINOPHIL S/100 LEUKOCYTES IN BLOOD BY AUTOMATED COUNT 3.8 0.4 - 6.8 04/09 Specimen Type: BLOOD No comment entered. Ordering Provider: RONNIE YEPEZ Report Released Date/Time: Apr 05, 2024 04:09 PM Reporting Lab: [facility] [place] [facility] [address] [facility] [address] Performing Lab: [facility] [facility] [address] [facility] [address] [facility] [place] [facility] CBC AND DIFF (AUTO) BASOPHILS/ 100 LEUKOCYTES IN BLOOD BY AUTOMATED COUNT 0.8 0.1 - 2.0 04/09 Specimen Type: BLOOD No comment entered. Ordering Provider: RONNIE YEPEZ Report Released Date/Time: Apr 05, 2024 04:09 PM Reporting Lab: [facility] [facility] [address] [facility] [address] Performing Lab: [facility] [facility] [address] [facility] [address] [place] [facility] [place] [facility] CBC AND DIFF (AUTO) NEUTROPHIL S [#/VOLUME] IN BLOOD BY AUTOMATED COUNT 2.99 10*3/uL 2.20 - 7.60 04/09 Specimen Type: BLOOD No comment entered. Ordering Provider: RONNIE YEPEZ Report Released Date/Time: Apr 05, 2024 04:09 PM Reporting Lab: [facility] [facility] [address] [facility] [address] Performing Lab: [facility] [place] [facility] [address] [facility] [address] [place] [facility] [place] [facility] CBC AND DIFF (AUTO) LYMPHOCYTE S [#/VOLUME] IN BLOOD BY AUTOMATED COUNT 1.48 10*3/uL 1.00 - 3.20 04/09 Specimen Type: BLOOD No comment entered. Ordering Provider: RONNIE YEPEZ Report Released Date/Time: Apr 05, 2024 04:09 PM Reporting Lab: [facility] [place] [facility] [address] [facility] [address] Performing Lab: [facility] [facility] [address] [facility] [address] [facility] [place] [facility] CBC AND DIFF (AUTO) EOSINOPHIL S [#/VOLUME] IN BLOOD BY AUTOMATED COUNT 0.20 10*3/uL 0.03 - 0.44 04/09 Specimen Type: BLOOD No comment entered. Ordering Provider: RONNIE YEPEZ Report Released Date/Time: Apr 05, 2024 04:09 PM Reporting Lab: [facility] [facility] [address] [facility] [address] Performing Lab: [facility] [place] [facility] [address] [facility] [address] [facility] [place] [facility] CBC AND DIFF (AUTO) BASOPHILS [#/VOLUME] IN BLOOD BY AUTOMATED COUNT 0.04 10*3/uL 0.01 - 0.13 04/09 Specimen Type: BLOOD No comment entered. Ordering Provider: RONNIE YEPEZ Report Released Date/Time: Apr 05, 2024 04:09 PM Reporting Lab: [facility] [facility] [address] [facility] [address] Performing Lab: [facility] [place] [address] [address] [place] [facility] [place] [facility] CBC AND DIFF (AUTO) IMMATURE GRANULOCYT ES/100 LEUKOCYTES IN BLOOD BY AUTOMATED COUNT 1.3 0.0 - 0.7 04/09 H Specimen Type: BLOOD No comment entered. Ordering Provider: RONNIE YEPEZ Report Released Date/Time: Apr 05, 2024 04:09 PM Reporting Lab: [facility] [facility] [address] [facility] [address] Performing Lab: [facility] [place] [facility] [address] [facility] [address] [facility] [place] [facility] CBC AND DIFF (AUTO) IMMATURE GRANULOCYT ES [#/VOLUME] IN BLOOD 0.07 10*3/uL 0.00 - 0.06 04/09 H Specimen Type: BLOOD No comment entered. Ordering Provider: RONNIE YEPEZ Report Released Date/Time: Apr 05, 2024 04:09 PM Reporting Lab: [facility] [place] [facility] [address] [facility] [address] Performing Lab: [facility] [place] [facility] [address] [facility] [address] [facility] [facility] CBC AND DIFF (AUTO) NRBC % 0.0 0.0 - 0.0 04/09 Specimen Type: BLOOD No comment entered. Ordering Provider: RONNIE YEPEZ Report Released Date/Time: Apr 05, 2024 04:09 PM Reporting Lab: [facility] [address] [facility] [address] Performing Lab: [facility] [address] [facility] [address] [facility] CBC AND DIFF (AUTO) NRBC, ABS 0.00 10*3/uL 0.00 - 0.00 04/09 Specimen Type: BLOOD No comment entered. Ordering Provider: RONNIE YEPEZ Report Released Date/Time: Apr 05, 2024 04:09 PM Reporting Lab: [facility] [address] [facility] [address] Performing Lab: [facility] [address] [address] [facility] CREATINI NE EGFR PANEL CREATININE [MASS/VOLU ME] IN SERUM OR PLASMA 1.10 mg/dL 0.5 - 1.5 07/12 Specimen Type: PLASMA No comment entered. Ordering Provider: EMMY HARTMANN Report Released Date/Time: Jul 11, 2023 09:21 AM Reporting Lab: [facility] [address] [facility] [address] Performing Lab: [facility] [address] [facility] [address] [facility] CREATINI NE EGFR PANEL GLOMERULAR FILTRATION RATE/1.73 SQ M.PREDICTE D [VOLUME RATE/AREA] IN SERUM, PLASMA OR BLOOD BY CREATININE -BASED FORMULA (CKD-EPI 2020) 66 60 07/12 Specimen Type: PLASMA No comment entered. Ordering Provider: EMMY HARTMANN Report Released Date/Time: Jul 11, 2023 09:21 AM Reporting Lab: [facility] [address] [facility] [address] Performing Lab: [facility] [address] [facility] [address] [facility] TSH THYROTROPI N [UNITS/VOL UME] IN SERUM OR PLASMA 3.65 u[IU]/mL 0.35 - 5.00 04/09 Specimen Type: SERUM No comment entered. Ordering Provider: RONNIE YEPEZ Report Released Date/Time: Apr 07, 2023 04:15 PM Reporting Lab: [facility]RN [facility] [address] Performing Lab: [facility] [address] [facility]ITALUSE [facility] BASIC METABOLI C PANEL (fasting ) UREA NITROGEN [MASS/VOLU ME] IN SERUM OR PLASMA 18 mg/dL 7 - 25 04/09 Specimen Type: SERUM No comment entered. Ordering Provider: RONNIE YEPEZ Report Released Date/Time: Apr 07, 2023 04:15 PM Reporting Lab: [facility] [address] Performing Lab: [facility] [address] [facility] BASIC METABOLI C PANEL (fasting ) GLUCOSE [MASS/VOLU ME] IN SERUM OR PLASMA 109 mg/dL 65 - 100 04/09 H Specimen Type: SERUM No comment entered. Ordering Provider: RONNIE YEPEZ Report Released Date/Time: Apr 07, 2023 04:15 PM Reporting Lab: [facility] [address] Performing Lab: [facility] [address] [facility] WSN [facility] BASIC METABOLI C PANEL (fasting ) SODIUM [MOLES/VOL UME] IN SERUM OR PLASMA 139 mmol/L 135 - 145 04/09 Specimen Type: SERUM No comment entered. Ordering Provider: RONNIE YEPEZ Report Released Date/Time: Apr 07, 2023 04:15 PM Reporting Lab: [facility] [address] Performing Lab: [place] [facility] [place] [facility] [address] [facility] [address] [facility] [place] [facility] BASIC METABOLI C PANEL (fasting ) POTASSIUM [MOLES/VOL UME] IN SERUM OR PLASMA 4.3 mmol/L 3.5 - 5.0 04/09 Specimen Type: SERUM No comment entered. Ordering Provider: RONNIE YEPEZ Report Released Date/Time: Apr 07, 2023 04:15 PM Reporting Lab: [place] [facility] [place] [facility] [address] [facility] [address] Performing Lab: [place] [facility] [place] [facility] [address] [facility] [address] [facility] [place] [facility] BASIC METABOLI C PANEL (fasting ) CHLORIDE [MOLES/VOL UME] IN SERUM OR PLASMA 105 mmol/L 100 - 110 04/09 Specimen Type: SERUM No comment entered. Ordering Provider: RONNIE YEPEZ Report Released Date/Time: Apr 07, 2023 04:15 PM Reporting Lab: [facility] [place] [place] [facility] [address] [facility] [address] Performing Lab: [place] [facility] [place] [facility] [address] [facility] [address] [facility] BASIC METABOLI C PANEL (fasting ) CARBON DIOXIDE, TOTAL [MOLES/VOL UME] IN SERUM OR PLASMA 25 meq/L 20 - 30 04/09 Specimen Type: SERUM No comment entered. Ordering Provider: RONNIE YEPEZ Report Released Date/Time: Apr 07, 2023 04:15 PM Reporting Lab: [facility] [place] [facility] [address] [facility] [address] Performing Lab: [place] [facility] [place] [facility] [address] [facility] [address] [facility] [place] [place] [facility] BASIC METABOLI C PANEL (fasting ) CREATININE [MASS/VOLU ME] IN SERUM OR PLASMA 1.00 mg/dL 0.50 - 1.40 04/09 Specimen Type: SERUM No comment entered. Ordering Provider: RONNIE YEPEZ Report Released Date/Time: Apr 07, 2023 04:15 PM Reporting Lab: [place] [facility] [place] [facility] [address] [facility] [address] Performing Lab: [place] [facility] [place] [facility] [address] [facility] [address] [place] [facility] [place] [facility] BASIC METABOLI C PANEL (fasting ) GLOMERULAR FILTRATION RATE/1.73 SQ M.PREDICTE D [VOLUME RATE/AREA] IN SERUM, PLASMA OR BLOOD BY CREATININE -BASED FORMULA (CKD-EPI 2020) 74 mL/min 60 04/09 Specimen Type: SERUM No comment entered. Ordering Provider: RONNIE YEPEZ Report Released Date/Time: Apr 07, 2023 04:15 PM Reporting Lab: [place] [facility] [place] [facility] [address] [facility] [address] Performing Lab: [place] [facility] [place] [facility] [address] [facility] [address] [place] [facility] [place] [facility] Vital Signs Combined list of inpatient and outpatient Vital Signs from Department of Defense and Veterans Affairs, ranging from 12 months to all on record, depending upon the facility. Vital Sign Value Date Comments Source PAIN 0 07/21/2024 14:27:13 [facility] TEMPERATURE 98.4 07/21/2024 14:27:13 [facility] SYSTOLIC BLOOD PRESSURE 164 07/14/19 25 12:40:38 [facility] DIASTOLIC BLOOD PRESSURE 88 025 12:40:38 [facility] PULSE OXIMETRY 98 07/14/2024 12:40:38 [facility] WEIGHT 229 07/14/2024 12:40:38 [facility] BMI 31 kg/m2 07/14/2024 12:40:38 [facility] PAIN 0 07/14/2024 12:40:38 [facility] HEIGHT 72 07/14/2024 12:40:38 [facility] TEMPERATURE 96.1 07/14/2024 12:40:38 [facility] PULSE 67 07/14/2024 12:40:38 [facility] RESPIRATION 18 07/14/2024 12:40:38 [facility] SYSTOLIC BLOOD PRESSURE 140 04/21/20 24 [...] ADM Date DC Date Status Disposition Source [place] [facility] [place] [facility] Outpatient Encounter [id number] 04/10 [place] [facility] [place] [facility] [place] [facility] OFFICE O/P EST LOW 20-29 MIN [id number] Diagnos is: ICD-10- CM 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 JESSICA YEPEZ RD D 04/16 [facility] [place] [facility] [place] [facility] OFF/OP EST MAY X REQ PHY/QHP [id number] Diagnos is: ICD-10- CM Z23 Encount er for immuniz atyasmin JESSICA YEPEZ RD D 04/25 [place] [facility] [place] [facility] [place] [facility] OFFICE O/P EST LOW 20-29 MIN [id number] Diagnos is: ICD-10- CM I89.0 Lymphed milo, not elsewhe re classif ied SCOTT SANTIAGO D 05/22 [place] [facility] [place] [facility] [place] [facility] Outpatient Encounter [id number] 06/04 [place] [facility] [place] [facility] [place] [facility] OFFICE O/P EST SF 10-19 MIN [id number] Diagnos is: ICD-10- CM R60.9 Edema, unspeci fied SCOTT SANTIAGO D 06/05 [place] [facility] [place] [facility] OFFICE O/P NEW MOD 45-59 MIN [id number] Diagnos is: ICD-10- CM I87.2 Venous insuffi ciency (chroni c) (periph eral) TOBIAS MEEHAN MD 06/07 [facility] ORTHOTIC MGMT&TRAIN G 1ST ENC [id number] Diagnos is: ICD-10- CM R60.0 Localiz ed edema SEANRuddy ACK 06/07 [facility] Outpatient Encounter [id number] SIDSHAMARRuddy ACK 06/08 [facility] OFFICE O/P EST LOW 20 MIN [id number] Diagnos is: ICD-10- CM I89.0 Lymphed milo, not elsewhe re classif ied SA JEF ALMAGUER 07/12 [facility] Outpatient Encounter [id number] EMA BAKER 08/16 [facility] [place] [facility] OFFICE O/P EST MOD 30 MIN [id number] Diagnos is: ICD-10- CM M21.371 Foot drop, right foot SCOTT SANTIAGO D 10/01 [facility] [place] Outpatient Encounter [id number] 10/03 [facility] [place] [facility] Outpatient Encounter [id number] SCOTT SANTIAGO D 11/29 [facility] [place] [facility] [place] Outpatient [facility]counter [id number] 12/10 [facility] [place] [facility] [place] [facility] OFFICE O/P EST LOW 20 MIN [id number] Diagnos is: ICD-10- CM R60.0 Localiz ed edema SCOTT SANTIAGO D 12/30 [facility] [place] [facility] DIABETIC CUSTOM MOLDED SHOE [id number] Diagnos is: ICD-10- CM M20.40 Other hammer toe(s) (acquir ed), unspeci fied foot DE LA CRUZGALA TT ANJUM 01/16 [facility] DIABETIC CUSTOM MOLDED SHOE [id number] Diagnos is: ICD-10- CM M21.371 Foot drop, right foot DI BOTELLO JUAN M 02/04 [facility] [place] OFFICE O/P EST LOW 20 MIN [id number] Diagnos is: ICD-10- CM I10 Essenti al (primar y) hyperte JESSICA Fleming RD 04/18 [facility] [place] [facility] [place] OFFICE O/P EST MOD 30 MIN [id number] Diagnos is: ICD-10- CM I10 Essenti al (primar y) hyperte JESSICA Fleming RD 04/18 [facility] [place] [facility] [place] OFF/OP CONSLTJ NEW/[place] HI 55 [id number] Diagnos is: ICD-10- CM M21.371 Foot drop, right foot JOEY ZHENG THI 04/21 [facility] [place] [facility] [place] Outpatient Encounter [id number] 04/21 [facility] [facility] Outpatient Encounter [id number] 05/05 [facility] OFFICE O/P EST SF 10 MIN [id number] Diagnos is: ICD-10- CM I89.0 Lymphed milo, not elsewhe re classif ied MAXINE FAJARDO MD 07/14 [facility] ORTH[facility]IC MGMT&TRAIN G 1ST ENC [id number] Diagnos is: ICD-10- CM I87.2 Venous insuffi ciency (chroni c) (periph eral) SHAHID,WILL MARK 07/14 [facility] Outpatient Encounter [id number] SHAHID,WILL MARK 07/16 [facility] Outpatient Encounter [id number] 07/17 [facility] OFFICE O/P EST LOW 20 MIN [id number] Diagnos is: ICD-10- CM M21.371 Foot drop, right foot FOSTER,SCOTT RLES D 07/21 [facility] OFFICE O/P EST LOW 20 MIN [id number] Diagnos is: ICD-10- CM M21.371 Foot drop, right foot FOSTER,SCOTT RLES D 07/28 [facility] Social History Combined list of available smoking, [...] [facility] [place] [facility] History of tobacco use MI-TOBACCO NEVER USED 04/15/2018 [facility] History of tobacco use LIFETIME NON-TOBACCO USER 04/17/2017 [facility] History of tobacco use LIFETIME NON-TOBACCO USER 04/13/2016 [facility] History of tobacco use FORMER SMOKER - <100 LIFETIME CIGARETTES 04/20/2010 [facility] History of tobacco use HISTORY OF SMOKING 08/12/2004 [facility] History of tobacco use HISTORY OF SMOKING 05/29/2003 [facility] Plan of Care List of future care activities from [facility] facilities. Additional future care activities may be listed in the Assessment and Plan section. Date/Time Care Activity Care Activity Detail Facili ty 01/19/2025 AMBULATORY - MEDICINE AMBULATORY - MEDICI [facility]
--- NOTE | 2024-10-09 08:32 | MHC.OFFVISCO ---
Intake Intake Visit Reasons: Anticoagulation Allergies doxycycline [Doxycycline] Allergy (Severe, Verified 10/09/24 08:24) HIVES lisinopril Allergy (Severe, Verified 10/09/24 08:24) RASH Medication List - Last Reconciled 10/09/24 by Roxanne Rodriguez, RN doxepin 3 mg PO BEDTIME PRN fluticasone propionate 50 mcg/actuation (Flonase Allergy Relief) 1 spray intranasal DAILY furosemide 20 mg PO DAILY 90 days levothyroxine 75 mcg PO QAM metoprolol succinate ER 25 mg PO DAILY simvastatin 20 mg PO BEDTIME warfarin (Juntoven) See Protocol 7.5 mg QD orally QD; 90 days warfarin (Juntoven) See Protocol 10 mg X 6-7 DAYS/ WEEK WARFARIN DOSE PER INR Nursing Note INR: 2.9 in therapeutic range of 2-3 Medications and supplements reviewed No changes in health, diet, medications, or supplements, Denies any signs and symptoms of bleeding or bruising or clotting. Bleeding, bruising, clotting discussed Nutritional guidance given Dose: 10mg X 6 days and 7.5mg X 1 day F/U INR: 5 weeks per pt request Patient verbalizes understanding of instructions given Anti-Coag Initial Assessment Social Hx Patient Tobacco Use Status: Never used Tobacco alcohol intake: current Alcohol intake frequency: holidays/special occasions only Coding Level of Care Code Est Patient Level 1 Diagnoses Current use of anticoagulant therapy Z79.01 Results AMB INR Fingerstick AMB INR Fingerstick 2.9 Last Edit by Roxanne Rodriguez, RN on 10/09/24 08:29 interface delay Assessment & Plan Assessment & Plan (1) Current use of anticoagulant therapy: Code(s): Z79.01 - halfway (current) use of anticoagulants Category: Medical
== END 2024-10-09 08:33 | disposition home or self-care (01) ==
LOC: HO.ACS 08:15
PROVIDERS: PCP Internal Medicine; Visit Provider Internal Medicine Medical Oncology
DX: Z79.01 Long term (current) use of anticoagulants (principal)

== ENCOUNTER → 2024-10-09 08:15 | Outpatient (BNVA) | payer MEDICARE, SELFPAY | PROVIDERS: PCP Internal Medicine; Visit Provider Internal Medicine Medical Oncology | DX: I48.20 Chronic atrial fibrillation, unspecified (principal); Z79.01 Long term (current) use of anticoagulants; Z51.81 Encounter for therapeutic drug level monitoring | CPT/HCPCS: 85610; 99211 ==

== ENCOUNTER 2024-10-18 11:17 | Emergency (ER) | payer MEDICARE, SELFPAY ==
--- NOTE | ~2024-10-18 | XR_ITS ---
CLINICAL HISTORY: 5th digit lac, ?retained FB One view of the right hand and three views of the right small finger Comparison: None Findings: No fracture or dislocation. Likely small finger and proximal ring finger soft tissue injuries. No radiopaque foreign body. 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 IMPRESSION: No fracture or radiopaque foreign body. This document has been electronically signed by: Glen Robbins DO on 10/18/2024 13:02:59
[2024-10-18 11:20] VITALS: BP 153/58; PULSE 67; RESP 18; TEMP 36.6; O2SAT 95; BMI 30.6
--- NOTE | 2024-10-18 11:22 | ED_ITS ---
HPI - Wound/Laceration General Chief Complaint: Wound/Laceration Stated Complaint: finger laceration Time Seen by Provider: 10/18/24 11:44 Source: patient and family ( and daughter at bedside corroborating history) Mode of arrival: ambulatory Limitations: no limitations History of Present Illness ED Provider: DANY MAZARIEGOS narrative: 83 year old male with PMHx of HLD, HTN, sick sinus syndrome, hypothyroidism, Afib with pacemaker on Coumadin, presents to the ED due to finger laceration. Patient states he was washing dishes this morning (10/18) and cut his right 5th digit on broken glass around 1030 am. He originally went to urgent care and was referred to come to the ED due to being on Coumadin, bleeding is controlled with pressure dressing. Patient is right hand dominant. He denies chest pain, palpitations, SOB, headache, visual changes, nausea, vomiting, diarrhea, or fever. Onset (ago): hour(s) (3) Location: other (right hand, 5th digit) Extremity Location: right: hand (5th digit ) Place: home Patient tetanus UTD: No Context: accidental Associated symptoms: none Treatments prior to arrival: bandage (pressure bandage) Related Data Previous Rx's ?Medication ?Instructions ?Recorded doxepin 3 mg tablet 3 mg PO BEDTIME PRN sleep #30 tabs 03/16/23 furosemide 20 mg tablet 20 mg PO DAILY 90 days #90 tabs 08/31/23 fluticasone propionate 50 1 spray intranasal DAILY #9.9 mL 09/26/23 mcg/actuation nasal spray,suspension (Flonase Allergy Relief) warfarin 10 mg tablet (Jantoven) 10 mg .Route .COMPLEX #140 caps 11/08/23 warfarin 7.5 mg tablet (Jantoven) See Rx Instructions PO .QD 90 days 12/05/23 #90 tabs metoprolol succinate 25 mg 25 mg PO DAILY #90 tabs 07/25/24 tablet,extended release 24 hr simvastatin 20 mg tablet 20 mg PO BEDTIME #90 tabs 08/22/24 levothyroxine 75 mcg tablet 75 mcg PO QAM #90 tabs 08/25/24 Allergies Allergy/AdvReac Type Severity Reaction Status Date / Time doxycycline [Doxycycline] Allergy Severe HIVES Verified 10/18/24 11:22 lisinopril Allergy Severe RASH Verified 10/18/24 11:22 Review of Systems Review of Systems: Constitutional: No Weight loss, No Fever, No Chills, No Night Sweats, No Fatigue, No Malaise ENT/Mouth: No Hearing loss, No Ear Pain, No Nasal Congestion, No Sinus Pain, No Hoarseness, No sore throat, No Rhinorrhea, No Swallowing Difficulty Eyes: No Eye Pain, No Swelling, No Redness, No Foreign Body, No Discharge, No Vision Changes Cardiovascular: No Chest Pain, No SOB, No Dyspnea on Exertion, No Orthopnea, No Edema, No Palpitations Respiratory: No Cough, No Sputum, No Wheezing, No Smoke Exposure, No Dyspnea Gastrointestinal: No Nausea, No Vomiting, No Diarrhea, No Constipation, No Abdominal pain, No Hematochezia, No Melena Genitourinary: No irregular bleeding, No Dysuria, No Urinary Frequency, No Hematuria, No Urinary Incontinence/retention, No Urgency, No Flank Pain, No Urinary Flow Changes, No Hesitancy Musculoskeletal: No joint pain, No Myalgias, No Joint Swelling Extremities: + Laceration of right 5th digit Skin: No Skin Lesions, No rash Neuro: No Weakness, No Numbness, No Paresthesias, No Loss of Consciousness, No Dizziness, No Headache Psych: No Anxiety/Panic, No Depression, No SI/HI/AH/VH, No Social Issues, Heme/Lymph: No Bruising, No Bleeding,No Lymphadenopathy Endocrine: No Polyuria, No Polydipsia, No Temperature Intolerance Yes all other systems are reviewed and are negative [facility] Past Medical History Attestation statement: The following information was validated with the patient. Source: old records reviewed, obtained from family (daughter and at the bedside) and nursing notes reviewed Medical History Insomnia COVID-19 virus infection Hyperparathyroidism Basal cell carcinoma of skin Tubular adenoma of colon Sick sinus syndrome Hypercholesterolemia Hypothyroid Atrial fibrillation Monoclonal paraproteinemia Hypertension Surgical History History of parathyroidectomy Family History Family History Father Past heart attack Social History Social History Housing: House Alcohol intake: current Alcohol intake frequency: holidays/special occasions only Alcohol type: wine Patient Tobacco Use Status: Never used Tobacco e-Cigarette/Vaping Use: Never Used Second Hand Smoke Exposure: No Advance Directives: No Advance Directives Information Provided: Yes service: Yes Current occupational status: retired Current occupational exposures/hazards: No Cognitive needs: No Hearing needs: No Vision needs: Yes Physical Exam Vital Signs: Vital Signs: Last Vital Signs Temp 98.1 F 10/18/24 14:23 Pulse 64 10/18/24 14:23 Resp 18 10/18/24 14:23 BP 158/62 H 10/18/24 14:23 Pulse Ox 94 10/18/24 14:23 O2 Del Method Room Air 10/18/24 14:23 BMI result Body Mass Index 30.6 Appearance: Alert. Oriented X3. No acute distress. Eyes: Pupils equal, round and reactive to light. ENT: Pharynx normal. Neck: Normal inspection. Neck supple. CVS: Normal heart rate and rhythm. Pulses normal. Respiratory: No respiratory distress. Breath sounds normal. Abdomen: Soft and nontender. +BS x4 Skin: Skin warm and dry. Normal skin color. Normal skin turgor. No rashes. Extremities: 1.5 partial-thickness, linear laceration of right 5th digit on the palmar aspect, middle phalanx, no surrounding erythema, edema, purulent discharge, ROM of pip and dip intact, mild numbness to palpation at the distal end. Capillary refill less than 2 seconds. Neuro: Oriented X 3. No motor deficit. No sensory deficit. CN II-XII intact. Course Course Course Narrative: This is an RME performed by Cameron Evans CNP: Additional HPI, ROS, PE not included below will be deferred to primary provider. Patient is an 83-year-old male who presents emergency department for evaluation of accidental laceration to the right 5th digit. Reports a glass that shattered on the [place] ertop he went to reach to clean it and accidentally sustained a laceration to the palmar aspect of the finger. Presented to an urgent care, he is anticoagulated on Coumadin, due to the extent of bleeding, they did not feel comfortable for laceration repair there therefore he was sent to emergency department. Unaware of the date of last tetanus vaccination. Plan: XR to exclude retained foreign body, pending bed assignment for laceration repair Medications Administered Discontinued Medications Generic Name Dose Route Start Last Admin Trade Name Ivan PRN Reason Stop Dose Admin Bacitracin 1 appl 10/18/24 13:10 10/18/24 13:45 Bacitracin Oint 0.9 Gm Packet TOPICAL 10/18/24 13:11 1 appl ONCE ONE Administration Protocol Diphtheria/Tetanus/Acell Pertussis 0.5 ml 10/18/24 12:33 10/18/24 12:48 Diphth,Pertus(Acell),Tet Adult 0.5 Ml Syringe IM 10/18/24 12:34 0.5 ml .ONCE ONE Administration Lidocaine HCl 5 ml 10/18/24 13:10 10/18/24 13:46 Lidocaine Hcl 1 % Mpf 5 Ml Vial INFILTRATI 10/18/24 13:11 5 ml ONCE ONE Administration Medical Decision Making Medical Decision Making MDM Narrative: 83 year old male with PMHx of HLD, HTN, sick sinus syndrome, hypothyroidism, Afib with pacemaker on Coumadin, presents to the ED due to finger laceration. Patient states he was washing dishes this morning (10/18) and cut his right 5th digit on broken glass around 1030 am. He originally went to urgent care and was referred to come to the ED due to being on Coumadin, bleeding is controlled with pressure dressing. Patient is right hand dominant. He denies chest pain, palpitations, SOB, headache, visual changes, nausea, vomiting, diarrhea, or fever. Patients vital signs reveal elevated BP of 153/58 otherwise unremarkable. Patient in no acute distress and is non-toxic appearing. On physical exam there is a 1.5cm linear laceration of the middle phalanx palmar aspect 5th digit. Bleeding is controlled without oozing blood. Patient has full ROM of PIP and DIP, there is mild numbness associated with the 5th digit on palpation. Patient will be referred to [facility] orthopedics for follow up. X-ray ordered from triage provider to assess for possible retained foreign body. Course 14:00- Finger irrigated and bleeding is controlled at this time, no oozing blood. Finger prepped in sterile field for sutures. Nerve block of 5th digit placed. 5 sutures placed without incident, patient tolerated procedure well. Bacitracin applied and finger wrapped in clean dressing. Patient counseled on follow up to [facility] orthopedic hand specialist to address numbness of 5th digit. Patient counseled on suture care and ready for removal in 10-14 days. Differential Diagnosis Differential Diagnoses: The differential diagnosis associated with the presentation includes laceration, retained foreign body, contusion, abrasion, Admission/Observation Consideration of admission/observation: Escalation of care including admission/observation considered Independent Interpretation I performed an independent interpretation of an: Plain X-Ray Interpretation: I independently reviewed x-ray of right finger and agree with the radiologists findings. Radiology Impression Discussion of test interpretation with radiology: I have reviewed the radiologist's reading. Radiologist Impression: CLINICAL HISTORY: 5th digit lac, ?retained FB One view of the right hand and three views of the right small finger Comparison: None Findings: No fracture or dislocation. Likely small finger and proximal ring finger soft tissue injuries. No radiopaque foreign body. 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 IMPRESSION: No fracture or radiopaque foreign body. This document has been electronically signed by: Glen Robbins DO on 10/18/2024 13:02:59 Independent Historian Clinical information obtained from an independent historian. History obtained from or confirmed by: Spouse ( ) and Other (daughter) External Record Review External record reviewed: Inpatient record, Office record, Outpatient record and Prior outpatient labs Chronic Conditions Patient?s care impacted by: Hypertension and Other (Afib/pacemaker on Coumadin) Procedures Laceration Laceration 1: Site: hand (right 5th digit) Side (If applicable): right Size (cm): 1.5 Description: linear and clean Depth: simple, single layer Local Anesthetic: lidocaine 1% Amount of anesthesia used (mL): 5 Pre-repair: wound explored, irrigated extensively and deep structures intact Skin layer closed with: nylon Size (cm): 5-0 Number of sutures: 5 Technique: simple, interrupted Nerve Block Nerve Block 1: Time out performed: Yes Local Anesthetic: lidocaine 1% Amount of anesthesia used (mL): 5 Side: right (5th digit) Nerve Blocks: digital (right 5th digit) Procedure Successful: Yes Patient Tolerated Procedure: well Complications: none Discharge Plan Discharge Clinical Impression: Laceration Patient Disposition: Home, Self-Care Instructions: Care For Your Stitches (ED), Laceration (ED) Additional Instructions: You were evaluated in the ED today for a finger laceration. Your laceration was cleaned, 6 sutures were placed in the left 2nd digit. Your finger had Bacitracin ointment placed ontop of the stitches and wrapped in clean dressing. Your finger should not be submerged in water. You should not swim in any pools, natural bodies of water, or hot tubs for 10-14 days. Please follow up with [facility] orthopedics hand specialist Dr. Baca due to numbness of the finger to ensure improvement. Your stitches should be left in place for 10-14 days. You can follow up with your PCP, urgent care, or come back to the ED for removal of the stitches. Please return to the ED if you experience increased redness, swelling, increased/ uncontrollable bleeding, purulent drainage, decreased sensation, increased pain, fever over 100.4 or any other symptoms or concerns. Prescriptions: No Action furosemide 20 mg tablet 20 mg PO DAILY 90 Days Qty: 90 3RF warfarin [Jantoven] 10 mg tablet 10 mg .ROUTE .COMPLEX Qty: 140 3RF Protocol: Dose Management Condition: Sunday (Week One) Dose/Route: 7.5 mg Instruction: 1 x 7.5 mg tablet Condition: Sunday Dose/Route: 10 mg Instruction: 1 x 10 mg tablet Condition: Sunday Dose/Route: 10 mg Instruction: 1 x 10 mg tablet Condition: Sunday Dose/Route: 10 mg Instruction: 1 x 10 mg tablet Condition: Dose/Route: 10 mg Instruction: 1 x 10 mg tablet Condition: Sunday Dose/Route: 10 mg Instruction: 1 x 10 mg tablet Condition: Sunday Dose/Route: 10 mg Instruction: 1 x 10 mg tablet Condition: Sunday (Week Two) Dose/Route: 7.5 mg Instruction: 1 x 7.5 mg tablet Condition: Sunday Dose/Route: 10 mg Instruction: 1 x 10 mg tablet Condition: Sunday Dose/Route: 10 mg Instruction: 1 x 10 mg tablet Condition: Sunday Dose/Route: 10 mg Instruction: 1 x 10 mg tablet Condition: Dose/Route: 10 mg Instruction: 1 x 10 mg tablet Condition: Sunday Dose/Route: 10 mg Instruction: 1 x 10 mg tablet Condition: Sunday Dose/Route: 10 mg Instruction: 1 x 10 mg tablet Protocol Text: Adjustment Start Date: 10/09/24 INR Value: 2.9 INR Date: 10/09/24 Recheck Date: 11/13/24 Rx Instructions: 10 mg X 6-7 DAYS/ WEEK WARFARIN DOSE PER INR warfarin [] 7.5 mg tablet See Rx Instructions PO .QD 90 Days Qty: 90 3RF Protocol: Dose Management Condition: Sunday (Week One) Dose/Route: 7.5 mg Instruction: 1 x 7.5 mg tablet Condition: Sunday Dose/Route: 10 mg Instruction: 1 x 10 mg tablet Condition: Sunday Dose/Route: 10 mg Instruction: 1 x 10 mg tablet Condition: Sunday Dose/Route: 10 mg Instruction: 1 x 10 mg tablet Condition: Dose/Route: 10 mg Instruction: 1 x 10 mg tablet Condition: Sunday Dose/Route: 10 mg Instruction: 1 x 10 mg tablet Condition: Sunday Dose/Route: 10 mg Instruction: 1 x 10 mg tablet Condition: Sunday ( Two) Dose/Route: 7.5 mg Instruction: 1 x 7.5 mg tablet Condition: Sunday Dose/Route: 10 mg Instruction: 1 x 10 mg tablet Condition: Sunday Dose/Route: 10 mg Instruction: 1 x 10 mg tablet Condition: Sunday Dose/Route: 10 mg Instruction: 1 x 10 mg tablet Condition: Dose/Route: 10 mg Instruction: 1 x 10 mg tablet Condition: Sunday Dose/Route: 10 mg Instruction: 1 x 10 mg tablet Condition: Sunday Dose/Route: 10 mg Instruction: 1 x 10 mg tablet Protocol Text: Adjustment Start Date: 10/09/24 INR Value: 2.9 INR Date: 10/09/24 Recheck Date: 11/13/24 Rx Instructions: 7.5 mg QD orally QD; metoprolol succinate 25 mg tablet extended release 24 hr 25 mg PO DAILY Qty: 90 0RF simvastatin 20 mg tablet 20 mg PO BEDTIME Qty: 90 0RF levothyroxine 75 mcg tablet 75 mcg PO QAM Qty: 90 2RF doxepin 3 mg tablet 3 mg PO BEDTIME PRN (Reason: sleep) Qty: 30 0RF fluticasone propionate [Flonase Allergy Relief] 50 mcg/actuation spray,suspension 1 spray intranasal DAILY Qty: 9.9 1RF Rx Instructions: administer into each nostril Referrals: [facility] Orth[facility]geons [Provider Group] Interventions: ED Discharge Assessment Last Done: 10/18/24 14:23 Discharge Date/Time: 10/18/24 14:23 Print Language: Afghan
--- OUTSIDE RECORDS SUMMARY | 2024-10-18 12:19 | XMS_ITS | Clinical Summary ---
Author Organization [address] [place] [address] [place] [id number] Phone Care Team Providers Care Flumer Name Role Phone Royal Aguila MD Primary Care Provider [phone] Allergies Active Allergy Reactions Criticality Noted Date [...] Description 08/18/2024 3:30 PM EST Ancillary Procedure [facility] Cardiology [facility] [address] [place] [address] Encounter for adjustment or management of cardiac [...] Description 02/18/2025 3:30 PM EDT Ancillary Procedure [facility] Cardiology [facility] [address] [place] [address] 04/13/2025 9:25 AM EDT Office Visit [facility] Cardiology [facility] [address] [place] [address] William Damon MD [address] [address] Health Maintenance Due Date Last Done Comments [...] this topic Medical Devices Implanted Type Area Manager Auto Device Identifier Shelf Expiration Date Model / Serial / Lot Abbt-Stju Assurity Mri [id number] Implanted:04/2020 (Quantity not on file) Cardiac Pacemaker [facility] [employer] MRI 2272 / [id number] / Procedures Procedure Name Priority Date/Time Associated Diagnosis Comments CARDIAC DEVICE CHECK- IN [facility]- [facility] Routine 08/18/2024 3:38 PM EST Encounter for adjustment or management of cardiac device from Last 3 Months Results * CARDIAC DEVICE CHECK- IN CL[facility]- [facility] (08/18/2024 3:38 PM EST) Date Time Interrogation Session [id number] CV DEVICE CHECK Implantable Pulse Generator Manager Auto [employer] CV DEVICE CHECK Implantable Pulse Generator Type IPG CV DEVICE CHECK Implantable Pulse Generator Model Annabel MRI 2272 CV DEVICE CHECK Implantable Pulse Generator Serial Number [id number] CV DEVICE CHECK Implantable Pulse Generator Implant [...] reviewed and tested * Presenting Rhythm: AF JOB RECRUITER 80s * Underlying Rhythm: AF VS 60s [...] reviewed and tested * Presenting Rhythm: AF JOB RECRUITER 80s * Underlying Rhythm: AF VS 60s * Heart Rate Histograms reviewed * Pacing and Detection Parameters were evaluated us Order Referral Cardiovascular CV IMPLANTABLE CAR DIAC DEVICE PROCEDURES Final Result from Last 3 Months Insurance MEDICARE [facility] Care Teams Flumer Relationship Specialty Start Date End Date Royal Aguila MD [address] [place] [address] [address] [facility] [place] [address] PCP - General Internal Medicine 05/15/20
--- OUTSIDE RECORDS SUMMARY | 2024-10-18 12:20 | XMS_ITS | Continuity of Care Document ---
Author Name [facility] Organization DOD-PR Care Team Providers Care E Merchant Name Role Phone DOD-PR Unavailable Unavailable Problems Combined list of problems [...] HCS Rosacea * (ICD-9-CM 695.3) Active Condition [facility] [place] [facility] SINUSITIS, CHRONIC Active Condition [facility] [place] [facility] Superficial basal cell carcinoma Active Condition Feb 28, 2006 Entered By: ALFONSO ARCINIEGA Comment: [facility]ect[facility] from L. [facility] [place] [facility] Screening for Malignant Neoplasms of colon Inactive Condition 05/29/2003 May 29, 2003 Entered By: JOSH RODRIGUEZ Comment: colonscopy 02/18 one benign polyp, Mother had colon [facility] [place] [facility] Diagnosis: ICD-10-CM M21.371 Foot drop, right foot Active [facility] [place] [facility] Diagnosis: ICD-10-CM I87.2 Venous insufficiency (chronic) (peripheral) Active Diagnosis [facility] Diagnosis: ICD-10-CM I89.0 Lymphedema, not elsewhere classified Active Diagnosis [facility] Diagnosis: ICD-10-CM I10 Essential (primary) hypertension [facility] [place] [facility] Diagnosis: ICD-10-CM M20.40 Other hammer toe(s) (acquired), unspecified foot Active [facility] [place] [facility] Diagnosis: ICD-10-CM R60.0 Localized edema Active Diagnosis [facility] [place] [facility] Diagnosis: ICD-10-CM R60.9 Edema, unspecified [facility] [place] [facility] Diagnosis: ICD-10-CM Z23 Encounter for immunization Active Diagnosis [facility] [place] [facility] Medications Combined list of outpatient medications [...] EVERY DAY [facility]AL ACTIVE [facility] [place] [facility] LEVOTHYROXI NE NA 50MCG TAB (SYNTHROID) TAKE ONE TABLET BY MOUTH EVERY DAY ORAL ACTIVE NED [facility]Z [facility] [place] [facility] LISINOPRIL 20MG TAB TAKE ONE TABLET BY MOUTH EVERY DAY ORAL ACTIVE LUCHO,HOW FELIPA D [facility] [place] [facility] METOPROLOL SUCCINATE TAB,SA TAKE 12.5MG BY MOUTH EVERY DAY ORAL ACTIVE LUCHO,HOW FELIPA D 2011 [facility] [place] [facility] MULTIVITAMI NS W/MINERALS TAB TAKE ONE TABLET BY MOUTH ORAL ACTIVE EMILY RODRIGUEZ [facility] [place] [facility] SIMVASTATIN 40MG TAB TAKE ONE-HALF TABLET BY MOUTH AT BEDTIME ORAL ACTIVE LUCHO,HOW FELIPA D 2023 [facility] [place] [facility] WARFARIN NA (MOORE STATE) 10MG TAB TAKE DIRECTED BY MOUTH WITH DIRECTIO NS PROVIDED FROM THE [facility]ADIN [facility]INIC ORAL ACTIVE LUCHO,HOW FELIPA D 2011 [facility] [place] [place] [facility] Allergies, Adverse Reactions, Alerts Combined list of allergies from Department of Defense and Veterans Affairs facilities. It does not include entries that were removed or entered in error. Substance Category Reaction Severity Reaction type Status Date Reported Comments Source AMOXICILLIN Propensity to adverse reactions to drug (finding) Eruption active 3 [facility] [place] [facility] CALCIUM Propensity to adverse reactions to drug (finding) Eruption active [facility] [place] [facility] MINOCYCLINE Propensity to adverse reactions to drug (finding) Eruption active 3 [facility] [place] [facility] Immunizations Combined list of available immunizations from the Department of Defense and Veterans Affairs facilities. Immunization Series Date Given Administered By Site Reaction Lot Number CVX Code Drug Dry Box Tender Status Comments Source COVID-19 (MODERNA), MRNA, LNP-S, PF, 50 MCG/0.5 ML (AGES 12+ YEARS) 2023 CASSI BONNER LEFT DELTO ID [id number] 312 complet ed Booster for Series, ADMINISTE LUPE AT [facility], [facility] [place] [facility] INFLUENZA, HIGH-DOSE, TRIVALENT, PF 2023 KAILEY,CASSI A RIGHT DELTO ID [id number] 135 complet ed Completed Series, [facility] RSV, BIVALENT, PROTEIN SUBUNIT RSVPREF, DILUENT RECONSTITUTED , 0.5 ML, PF 2022 CASSI BONNER RIGHT DELTO ID [id number] 305 complet ed Completed Series, [facility]-19 (MODERNA), MRNA, LNP-S, PF, 50 MCG/0.5 ML (AGES 12+ YEARS) 4 2022 SHYLA HERNANDEZ M RIGHT DELTO ID [id number] 312 complet ed [facility] INFLUENZA, HIGH-DOSE, QUADRIVALENT 2022 SHYLA HERNANDEZ ER M LEFT DELTO ID [id number] 197 complet ed [facility] TDAP 2022 SHYLA HERNANDEZ M LEFT DELTO ID [id number] 115 complet ed [facility] INFLUENZA, UNSPECIFIED FORMULATION 2021 88 complet ed [facility] COVID-19 (MODERNA), MRNA, LNP-S, PF, 100 MCG OR 50 MCG DOSE 3 2020 207 complet ed [id number] [facility] INFLUENZA VACCINE, QUADRIVALENT, ADJUVANTED 2020 205 complet ed [facility] COVID-19 (MODERNA), MRNA, LNP-S, PF, 100 MCG/0.5 ML DOSE 2 2020 207 complet ed MOD; [id number]; 1 [facility] COVID-19 (MODERNA), MRNA, LNP-S, PF, 100 MCG/0.5 ML DOSE 1 2020 207 complet ed MOD; [id number]; 1 [facility] INFLUENZA, UNSPECIFIED FORMULATION 2019 [...] (HISTORICAL) 2005 JURGEN MARRERO 88 complet ed [facility] [place] [facility] PNEUMOCOCCAL, UNSPECIFIED FORMULATION 2004 109 complet ed [facility] [place] [facility] Results Combined [...] 2024 04:09 PM Reporting Lab: [facility] [place] [facility] [address] [facility] [address] Performing Lab: [place] [facility] [place] [address] [address] [facility] [place] [facility] LIPID PANEL FASTING CHOLESTERO L [MASS/VOLU ME] IN SERUM OR PLASMA 130 mg/dL 04/09 Specimen Type: SERUM No comment entered. Ordering Provider: RONNIE YEPEZ Report Released Date/Time: Apr 05, 2024 04:09 PM Reporting Lab: [facility] [place] [facility] [address] [facility] [address] Performing Lab: [facility] [place] [place] [address] [address] [facility] [place] [facility] LIPID PANEL FASTING TRIGLYCERI DE [MASS/VOLU ME] IN SERUM OR PLASMA 92 mg/dL 0 - 150 04/09 Specimen Type: SERUM No comment entered. Ordering Provider: RONNIE YEPEZ Report Released Date/Time: Apr 05, 2024 04:09 PM Reporting Lab: [facility] [place] [place] [facility] [address] [facility] [address] Performing Lab: [place] [facility] [place] [address] [address] [facility] [place] [facility] LIPID PANEL FASTING CHOLESTERO L IN LDL [MASS/VOLU ME] IN SERUM OR PLASMA BY CALCULATIO N 67 mg/dL 0 - 129 04/09 Specimen Type: SERUM No comment entered. Ordering Provider: RONNIE YEPEZ Report Released Date/Time: Apr 05, 2024 04:09 PM Reporting Lab: [facility] [place] [facility] [address] [facility] [address] Performing Lab: [facility] [place] [facility] [address] [facility] [address] [facility] [place] [facility] LIPID PANEL FASTING CHOLESTERO L.TOTAL/CH OLESTEROL IN HDL [MASS RATIO] IN SERUM OR PLASMA 2.9 04/09 Specimen Type: SERUM No comment entered. Ordering Provider: RONNIE YEPEZ Report Released Date/Time: Apr 05, 2024 04:09 PM Reporting Lab: [facility] [place] [facility] [address] [facility] [address] Performing Lab: [facility] [place] [facility] [address] [facility] [address] [facility] [place] [facility] LIPID PANEL FASTING CHOLESTERO L IN HDL [MASS/VOLU ME] IN SERUM OR PLASMA 45 mg/dL 40 - 60 04/09 Specimen Type: SERUM No comment entered. Ordering Provider: RONNIE YEPEZ Report Released Date/Time: Apr 05, 2024 04:09 PM Reporting Lab: [facility] [place] [facility] [address] [facility] [address] Performing Lab: [facility] [place] [facility] [address] [facility] [address] [facility] [place] [facility] URINALYS IS CLEAN CATCH COLOR OF URINE Colorles s 04/09 Specimen Type: URINE Comment: If Glucose = >500 and Ketones are positive, please alert the Physician. Ordering Provider: RONNIE YEPEZ Report Released Date/Time: Apr 05, 2024 04:09 PM Reporting Lab: [facility] [place] [facility] [address] [facility] [address] Performing Lab: [facility] [place] [facility] [address] [facility] [address] [facility] [place] [facility] URINALYS IS CLEAN CATCH APPEARANCE OF URINE Clear 04/09 Specimen Type: URINE Comment: If Glucose = >500 and Ketones are positive, please alert the Physician. Ordering Provider: RONNIE YEPEZ Report Released Date/Time: Apr 05, 2024 04:09 PM Reporting Lab: [facility] [place] [facility] [address] [facility] [address] Performing Lab: [facility] [place] [facility] [address] [facility] [address] [facility] [place] [facility] URINALYS IS CLEAN CATCH GLUCOSE [MASS/VOLU ME] IN URINE Normalmg /dL 04/09 Specimen Type: URINE Comment: If Glucose = >500 and Ketones are positive, please alert the Physician. Ordering Provider: RONNIE YEPEZ Report Released Date/Time: Apr 05, 2024 04:09 PM Reporting Lab: [facility] [place] [address] [address] Performing Lab: [facility] [place] [facility] [address] [facility] [address] [facility] [place] [facility] URINALYS IS CLEAN CATCH KETONES [MASS/VOLU ME] IN URINE BY TEST STRIP NEGATIVE mg/dL 04/09 Specimen Type: URINE Comment: If Glucose = >500 and Ketones are positive, please alert the Physician. Ordering Provider: RONNIE YEPEZ Report Released Date/Time: Apr 05, 2024 04:09 PM Reporting Lab: [facility] [place] [place] [address] [address] Performing Lab: [place] [facility] [place] [address] [address] [facility] [place] [facility] URINALYS IS CLEAN CATCH ERYTHROCYT ES [PRESENCE] IN URINE SEDIMENT BY LIGHT MICROSCOPY NEGATIVE mg/dL 04/09 Specimen Type: URINE Comment: If Glucose = >500 and Ketones are positive, please alert the Physician. Ordering Provider: RONNIE YEPEZ Report Released Date/Time: Apr 05, 2024 04:09 PM Reporting Lab: [facility] [place] [facility] [address] [facility] [address] Performing Lab: [facility] [place] [facility] [address] [facility] [address] [facility] [place] [facility] URINALYS IS CLEAN CATCH PROTEIN [MASS/VOLU ME] IN URINE BY TEST STRIP NEGATIVE mg/dL 04/09 Specimen Type: URINE Comment: If Glucose = >500 and Ketones are positive, please alert the Physician. Ordering Provider: RONNIE YEPEZ Report Released Date/Time: Apr 05, 2024 04:09 PM Reporting Lab: [facility] [place] [facility] [address] [facility] [address] Performing Lab: [facility] [place] [facility] [address] [facility] [address] [facility] [place] [facility] URINALYS IS CLEAN CATCH NITRITE [PRESENCE] IN URINE NEGATIVE mg/dL 04/09 Specimen Type: URINE Comment: If Glucose = >500 and Ketones are positive, please alert the Physician. Ordering Provider: RONNIE YEPEZ Report Released Date/Time: Apr 05, 2024 04:09 PM Reporting Lab: [facility] [place] [facility] [address] [facility] [address] Performing Lab: [facility] [place] [facility] [address] [facility] [address] [facility] [place] [facility] URINALYS IS CLEAN CATCH BILIRUBIN. TOTAL [PRESENCE] IN URINE NEGATIVE mg/dL 04/09 Specimen Type: URINE Comment: If Glucose = >500 and Ketones are positive, please alert the Physician. Ordering Provider: RONNIE YEPEZ Report Released Date/Time: Apr 05, 2024 04:09 PM Reporting Lab: [facility] [place] [facility] [address] [facility] [address] Performing Lab: [facility] [place] [facility] [address] [facility] [address] [facility] [place] [facility] URINALYS IS CLEAN CATCH SPECIFIC GRAVITY OF URINE BY REFRACTOME TRY 1.009 1.016 - 1.022 04/09 L Specimen Type: URINE Comment: If Glucose = >500 and Ketones are positive, please alert the Physician. Ordering Provider: RONNIE YEPEZ Report Released Date/Time: Apr 05, 2024 04:09 PM Reporting Lab: [facility]TR[facility] [place] [facility] [address] [facility] [address] Performing Lab: [facility]OSPITALTRN [place] [facility] [address] [facility] [address] [facility] [place] [facility] URINALYS IS CLEAN CATCH PH OF URINE BY TEST STRIP 6.5 5.0 - 9.0 04/09 Specimen Type: URINE Comment: If Glucose = >500 and Ketones are positive, please alert the Physician. Ordering Provider: RONNIE YEPEZ Report Released Date/Time: Apr 05, 2024 04:09 PM Reporting Lab: [facility]ITALTRN [place] [facility] [address] [facility] [address] Performing Lab: [facility]RCOMM[facility]ITY HOSPITALTRN [facility]ITALUSE[address] [address] [facility]OS[facility]ITALTRN [facility]CHUSE [facility] URINALYS IS CLEAN CATCH UROBILINOG EN [MASS/VOLU ME] IN URINE BY TEST STRIP Normalmg /dL <2.0 - 2.0 04/09 Specimen Type: URINE Comment: If Glucose = >500 and Ketones are positive, please alert the Physician. Ordering Provider: RONNIE YEPEZ Report Released Date/Time: Apr 05, 2024 04:09 PM Reporting Lab: [facility]OSPITALTRN [place] [facility] [address] [facility] [address] Performing Lab: [facility] [place] [facility] [address] [facility] [address] [facility]N [place] [facility] URINALYS IS CLEAN CATCH LEUKOCYTE ESTERASE [PRESENCE] IN URINE BY TEST STRIP TRACE 04/09 Specimen Type: URINE Comment: If Glucose = >500 and Ketones are positive, please alert the Physician. Ordering Provider: RONNIE YEPEZ Report Released Date/Time: Apr 05, 2024 04:09 PM Reporting Lab: [facility]OSPITALTRN [place] [address] [address] Performing Lab: [facility]PITALUSEGRAC[facility]QU[facility] [address] [facility] [address] [facility]USE [facility] BASIC METABOLI C PANEL (fasting ) UREA NITROGEN [MASS/VOLU ME] IN SERUM OR PLASMA 22 mg/dL 7 - 25 04/09 Specimen Type: SERUM No comment entered. Ordering Provider: RONNIE YEPEZ Report Released Date/Time: Apr 05, 2024 04:09 PM Reporting Lab: [facility]RCOMM[facility]ITY HOSPITALTRN [facility]ITALUSE[facility] [address] [facility] [address] Performing Lab: [facility]ITALRCOMMUNITY HOSPITALTRN [facility]ITALUSEGRAC[facility] [address] [facility] [address] [facility] BASIC METABOLI C PANEL (fasting ) GLUCOSE [MASS/VOLU ME] IN SERUM OR PLASMA 104 mg/dL 65 - 100 04/09 H Specimen Type: SERUM No comment entered. Ordering Provider: RONNIE YEPEZ Report Released Date/Time: Apr 05, 2024 04:09 PM Reporting Lab: [facility]ITALRSELECT SPECIAL[facility] HOSPITALN [address] [address] Performing Lab: [facility]ITALRCOMMUNITY HOSPITALTRN [facility]OSPITALUSE[address] [address] [facility] BASIC METABOLI C PANEL (fasting ) SODIUM [MOLES/VOL UME] IN SERUM OR PLASMA 138 mmol/L 135 - 145 04/09 Specimen Type: SERUM No comment entered. Ordering Provider: RONNIE YEPEZ Report Released Date/Time: Apr 05, 2024 04:09 PM Reporting Lab: [facility]OS[facility]ITALRL TRN [facility]OS[facility]ITALUSEGRAC[facility] [address] [facility] [address] Performing Lab: [facility]ITALRCOMMUNITY HOSPITALTRN [facility]OSPITALUSE[address] [address] [facility] BASIC METABOLI C PANEL (fasting ) POTASSIUM [MOLES/VOL UME] IN SERUM OR PLASMA 4.5 mmol/L 3.5 - 5.0 04/09 Specimen Type: SERUM No comment entered. Ordering Provider: RONNIE YEPEZ Report Released Date/Time: Apr 05, 2024 04:09 PM Reporting Lab: [place] [facility] [place] [facility] [address] [facility] [address] Performing Lab: [facility] [place] [facility] [address] [facility] [address] [facility] [place] [facility] BASIC METABOLI C PANEL (fasting ) CHLORIDE [MOLES/VOL UME] IN SERUM OR PLASMA 104 mmol/L 100 - 110 04/09 Specimen Type: SERUM No comment entered. Ordering Provider: RONNIE YEPEZ Report Released Date/Time: Apr 05, 2024 04:09 PM Reporting Lab: [facility] [place] [facility] [address] [facility] [address] Performing Lab: [facility] [place] [facility] [address] [facility] [address] [facility]RL [facility] [place] [facility] BASIC METABOLI C PANEL (fasting ) CARBON DIOXIDE, TOTAL [MOLES/VOL UME] IN SERUM OR PLASMA 28 meq/L 20 - 30 04/09 Specimen Type: SERUM No comment entered. Ordering Provider: RONNIE YEPEZ Report Released Date/Time: Apr 05, 2024 04:09 PM Reporting Lab: [facility]ITALRL [facility] [place] [facility] [address] [facility] [address] Performing Lab: [facility] [place] [facility] [address] [facility] [address] [facility]ITALRL W[facility]N [place] [facility] BASIC METABOLI C PANEL (fasting ) CREATININE [MASS/VOLU ME] IN SERUM OR PLASMA 0.90 mg/dL 0.50 - 1.40 04/09 Specimen Type: SERUM No comment entered. Ordering Provider: RONNIE YEPEZ Report Released Date/Time: Apr 05, 2024 04:09 PM Reporting Lab: [facility] [place] [facility] [address] [facility] [address] Performing Lab: [facility] [place] [facility] [address] [facility] [address] [facility]RL W[facility] [place] [facility] BASIC METABOLI C PANEL (fasting ) GLOMERULAR FILTRATION RATE/1.73 SQ M.PREDICTE D [VOLUME RATE/AREA] IN SERUM, PLASMA OR BLOOD BY CREATININE -BASED FORMULA (CKD-EPI 2020) 84 mL/min 60 04/09 Specimen Type: SERUM No comment entered. Ordering Provider: RONNIE YEPEZ Report Released Date/Time: Apr 05, 2024 04:09 PM Reporting Lab: [facility]PITALRL TRN [facility] HOSPITALUSETS [facility] [address] [facility] [address] Performing Lab: PR CN[facility]L [facility]OSPITALUSEGRACIE SQUARE [facility] [address] [facility] [address] [facility]ITALRL TRN [facility]ITALUSE [facility] LIVER FUNCTION PROTEIN [MASS/VOLU ME] IN SERUM OR PLASMA 7.4 g/dL 6.0 - 8.3 04/09 Specimen Type: SERUM No comment entered. Ordering Provider: RONNIE YEPEZ Report Released Date/Time: Apr 05, 2024 04:09 PM Reporting Lab: [facility]ITALRL TRN [facility]ITALUSE[address] [address] Performing Lab: [facility]ITALRL TRN [facility]ITALUSE[address] [address] [facility]OSPITALRL [facility]ITALUSE [facility] LIVER FUNCTION ALBUMIN [MASS/VOLU ME] IN SERUM OR PLASMA 4.3 g/dL 3.5 - 5.0 04/09 Specimen Type: SERUM No comment entered. Ordering Provider: RONNIE YEPEZ Report Released Date/Time: Apr 05, 2024 04:09 PM Reporting Lab: [facility]ITALRL TRN [facility]ITALUSE[address] [address] Performing Lab: PR CNTRL TRN [facility]OS[facility]ITALUSE[address] [address] [facility]ITALRSELECT SPECIALTY HOSPITALN [facility]USE [facility] LIVER FUNCTION ALKALINE PHOSPHATAS E [ENZYMATIC ACTIVITY/V OLUME] IN SERUM OR PLASMA 58 U/L 40 - 150 04/09 Specimen Type: SERUM No comment entered. Ordering Provider: RONNIE YEPEZ Report Released Date/Time: Apr 05, 2024 04:09 PM Reporting Lab: [facility]ITALRL TRN [facility]ITALUSE[address] [address] Performing Lab: [facility]ITALRL TRN [facility]ITALUSE[address] [address] [facility]ITALRL WSTRN [place] [facility] LIVER FUNCTION ASPARTATE AMINOTRANS FERASE [ENZYMATIC ACTIVITY/V OLUME] IN SERUM OR PLASMA 21 U/L 5 - 34 04/09 Specimen Type: SERUM No comment entered. Ordering Provider: RONNIE YEPEZ Report Released Date/Time: Apr 05, 2024 04:09 PM Reporting Lab: [place] [facility] [place] [facility] [address] [facility] [address] Performing Lab: [place] [facility] [place] [facility] [address] [facility] [address] [facility] [place] [facility] LIVER FUNCTION ALANINE AMINOTRANS FERASE [ENZYMATIC ACTIVITY/V OLUME] IN SERUM OR PLASMA 25 U/L 04/09 Specimen Type: SERUM No comment entered. Ordering Provider: RONNIE YEPEZ Report Released Date/Time: Apr 05, 2024 04:09 PM Reporting Lab: [facility] [place] [place] [address] [address] Performing Lab: [place] [facility] [facility] [address] [facility] [address] [facility] LIVER FUNCTION BILIRUBIN. TOTAL [MASS/VOLU ME] IN SERUM OR PLASMA 0.9 mg/dL 0.2 - 1.2 04/09 Specimen Type: SERUM No comment entered. Ordering Provider: RONNIE YEPEZ Report Released Date/Time: Apr 05, 2024 04:09 PM Reporting Lab: [facility] [place] [address] [address] Performing Lab: [place] [address] [address] [facility] MICROSCO PIC AUTOMATE D, URINE LEUKOCYTES [#/AREA] IN URINE SEDIMENT BY MICROSCOPY HIGH POWER FIELD 0-5/[HPF ] 0 - 5 04/09 Specimen Type: URINE Comment: If Glucose = >500 and Ketones are positive, please alert the Physician. Ordering Provider: RONNIE YEPEZ Report Released Date/Time: Apr 05, 2024 04:09 PM Reporting Lab: [facility] [place] [facility] [address] [facility] [address] Performing Lab: [facility] [facility] [address] [facility] [address] [facility] [place] [facility] PIC AUTOMATE D, URINE ERYTHROCYT ES [#/AREA] IN URINE SEDIMENT BY MICROSCOPY HIGH POWER FIELD 0-2/[HPF ] 0 - 3 04/09 Specimen Type: URINE Comment: If Glucose = >500 and Ketones are positive, please alert the Physician. Ordering Provider: RONNIE YEPEZ Report Released Date/Time: Apr 05, 2024 04:09 PM Reporting Lab: [facility] [place] [facility] [address] [facility] [address] Performing Lab: [facility] [place] [facility] [address] [facility] [address] [facility] [place] [facility] CBC AND DIFF (AUTO) LEUKOCYTES [#/VOLUME] IN BLOOD BY AUTOMATED COUNT 5.27 10*3/uL 4.50 - 11.00 04/09 Specimen Type: BLOOD No comment entered. Ordering Provider: RONNIE YEPEZ Report Released Date/Time: Apr 05, 2024 04:09 PM Reporting Lab: [facility] [place] [facility] [address] [facility] [address] Performing Lab: [facility] [place] [facility] [address] [facility] [address] [facility] [place] [facility] CBC AND DIFF (AUTO) ERYTHROCYT ES [#/VOLUME] IN BLOOD BY AUTOMATED COUNT 4.15 10*6/uL 4.23 - 5.66 04/09 L Specimen Type: BLOOD No comment entered. Ordering Provider: RONNIE YEPEZ Report Released Date/Time: Apr 05, 2024 04:09 PM Reporting Lab: [facility] [place] [facility] [address] [facility] [address] Performing Lab: [facility] [place] [facility] [address] [facility] [address] [facility] [place] [facility] CBC AND DIFF (AUTO) HEMOGLOBIN [MASS/VOLU ME] IN BLOOD 13.2 g/dL 12.8 - 17 04/09 Specimen Type: BLOOD No comment entered. Ordering Provider: RONNIE YEPEZ Report Released Date/Time: Apr 05, 2024 04:09 PM Reporting Lab: [facility] [place] [facility] [address] [facility] [address] Performing Lab: [facility] [place] [facility] [address] [facility] [address] [facility] [place] [facility] CBC AND DIFF (AUTO) HEMATOCRIT [VOLUME FRACTION] OF BLOOD BY AUTOMATED COUNT 38.2 39.2 - 50.4 04/09 L Specimen Type: BLOOD No comment entered. Ordering Provider: RONNIE YEPEZ Report Released Date/Time: Apr 05, 2024 04:09 PM Reporting Lab: [facility] [place] [facility] [address] [facility] [address] Performing Lab: [facility] [place] [facility] [address] [facility] [address] [facility] [place] [facility] CBC AND DIFF (AUTO) MCV [ENTITIC VOLUME] BY AUTOMATED COUNT 92.0 fL 82 - 99 04/09 Specimen Type: BLOOD No comment entered. Ordering Provider: RONNIE YEPEZ Report Released Date/Time: Apr 05, 2024 04:09 PM Reporting Lab: [facility] [place] [facility] [address] [facility] [address] Performing Lab: [facility] [place] [facility] [address] [facility] [address] [facility] [place] [facility] CBC AND DIFF (AUTO) MCHC [MASS/VOLU ME] BY AUTOMATED COUNT 34.6 g/dL 30.8 - 35.1 04/09 Specimen Type: BLOOD No comment entered. Ordering Provider: RONNIE YEPEZ Report Released Date/Time: Apr 05, 2024 04:09 PM Reporting Lab: [facility] [place] [facility] [address] [facility] [address] Performing Lab: [facility] [place] [facility] [address] [facility] [address] [facility] [place] [facility] CBC AND DIFF (AUTO) PLATELETS [#/VOLUME] IN BLOOD BY AUTOMATED COUNT 138 10*3/uL 140 - 360 04/09 L Specimen Type: BLOOD No comment entered. Ordering Provider: RONNIE YEPEZ Report Released Date/Time: Apr 05, 2024 04:09 PM Reporting Lab: [facility] [place] [address] [address] Performing Lab: [facility] [place] [facility] [address] [facility] [address] [facility] [place] [facility] CBC AND DIFF (AUTO) ERYTHROCYT E DISTRIBUTI ON WIDTH [RATIO] BY AUTOMATED COUNT 13.0 12.0 - 16.0 04/09 Specimen Type: BLOOD No comment entered. Ordering Provider: RONNIE YEPEZ Report Released Date/Time: Apr 05, 2024 04:09 PM Reporting Lab: [facility] [place] [address] [address] Performing Lab: [facility] [place] [address] [address] [facility] [place] [facility] CBC AND DIFF (AUTO) MONOCYTES [#/VOLUME] IN BLOOD BY AUTOMATED COUNT 0.49 10*3/uL 0.30 - 1.10 04/09 Specimen Type: BLOOD No comment entered. Ordering Provider: RONNIE YEPEZ Report Released Date/Time: Apr 05, 2024 04:09 PM Reporting Lab: [facility] [place] [address] [address] Performing Lab: [facility] [place] [facility] [address] [facility] [address] [facility] [place] [facility] CBC AND DIFF (AUTO) MCH [ENTITIC MASS] BY AUTOMATED COUNT 31.8 pg 26.2 - 32.6 04/09 Specimen Type: BLOOD No comment entered. Ordering Provider: RONNIE YEPEZ Report Released Date/Time: Apr 05, 2024 04:09 PM Reporting Lab: [facility] [place] [address] [address] Performing Lab: [facility] [place] [facility] [address] [facility] [address] [facility] [place] [facility] CBC AND DIFF (AUTO) NEUTROPHIL S/100 LEUKOCYTES IN BLOOD BY AUTOMATED COUNT 56.7 43.7 - 75.8 04/09 Specimen Type: BLOOD No comment entered. Ordering Provider: RONNIE YEPEZ Report Released Date/Time: Apr 05, 2024 04:09 PM Reporting Lab: [facility] [place] [facility] [address] [facility] [address] Performing Lab: [facility] [place] [facility] [address] [facility] [address] [facility] [place] [facility] CBC AND DIFF (AUTO) LYMPHOCYTE S/100 LEUKOCYTES IN BLOOD BY AUTOMATED COUNT 28.1 14.0 - 42.3 04/09 Specimen Type: BLOOD No comment entered. Ordering Provider: RONNIE YEPEZ Report Released Date/Time: Apr 05, 2024 04:09 PM Reporting Lab: [facility] [place] [facility] [address] [facility] [address] Performing Lab: [facility] [place] [facility] [address] [facility] [address] [facility] [place] [facility] CBC AND DIFF (AUTO) MONOCYTES/ 100 LEUKOCYTES IN BLOOD BY AUTOMATED COUNT 9.3 5.1 - 13.7 04/09 Specimen Type: BLOOD No comment entered. Ordering Provider: RONNIE YEPEZ Report Released Date/Time: Apr 05, 2024 04:09 PM Reporting Lab: [facility] [place] [facility] [address] [facility] [address] Performing Lab: [facility] [place] [facility] [address] [facility] [address] [facility] [place] [facility] CBC AND DIFF (AUTO) EOSINOPHIL S/100 LEUKOCYTES IN BLOOD BY AUTOMATED COUNT 3.8 0.4 - 6.8 04/09 Specimen Type: BLOOD No comment entered. Ordering Provider: RONNIE YEPEZ Report Released Date/Time: Apr 05, 2024 04:09 PM Reporting Lab: [facility] [place] [facility] [address] [facility] [address] Performing Lab: [facility] [place] [facility] [address] [facility] [address] [facility] [place] [facility] CBC AND DIFF (AUTO) BASOPHILS/ 100 LEUKOCYTES IN BLOOD BY AUTOMATED COUNT 0.8 0.1 - 2.0 04/09 Specimen Type: BLOOD No comment entered. Ordering Provider: RONNIE YEPEZ Report Released Date/Time: Apr 05, 2024 04:09 PM Reporting Lab: [facility] [place] [facility] [address] [facility] [address] Performing Lab: [facility] [place] [facility] [address] [facility] [address] [facility] [place] [facility] CBC AND DIFF (AUTO) NEUTROPHIL S [#/VOLUME] IN BLOOD BY AUTOMATED COUNT 2.99 10*3/uL 2.20 - 7.60 04/09 Specimen Type: BLOOD No comment entered. Ordering Provider: RONNIE YEPEZ Report Released Date/Time: Apr 05, 2024 04:09 PM Reporting Lab: [facility] [place] [facility] [address] [facility] [address] Performing Lab: [facility] [place] [facility] [address] [facility] [address] [facility] [place] [facility] CBC AND DIFF (AUTO) LYMPHOCYTE S [#/VOLUME] IN BLOOD BY AUTOMATED COUNT 1.48 10*3/uL 1.00 - 3.20 04/09 Specimen Type: BLOOD No comment entered. Ordering Provider: RONNIE YEPEZ Report Released Date/Time: Apr 05, 2024 04:09 PM Reporting Lab: [facility] [place] [facility] [address] [facility] [address] Performing Lab: [facility] [place] [facility] [address] [facility] [address] [facility] [place] [facility] CBC AND DIFF (AUTO) EOSINOPHIL S [#/VOLUME] IN BLOOD BY AUTOMATED COUNT 0.20 10*3/uL 0.03 - 0.44 04/09 Specimen Type: BLOOD No comment entered. Ordering Provider: RONNIE YEPEZ Report Released Date/Time: Apr 05, 2024 04:09 PM Reporting Lab: [facility] [place] [facility] [address] [facility] [address] Performing Lab: [facility] [place] [facility] [address] [facility] [address] [facility] [place] [facility] CBC AND DIFF (AUTO) BASOPHILS [#/VOLUME] IN BLOOD BY AUTOMATED COUNT 0.04 10*3/uL 0.01 - 0.13 04/09 Specimen Type: BLOOD No comment entered. Ordering Provider: RONNIE YEPEZ Report Released Date/Time: Apr 05, 2024 04:09 PM Reporting Lab: [facility] [place] [facility] [address] [facility] [address] Performing Lab: [facility] [place] [address] [address] [facility] [place] [facility] CBC AND DIFF (AUTO) IMMATURE GRANULOCYT ES/100 LEUKOCYTES IN BLOOD BY AUTOMATED COUNT 1.3 0.0 - 0.7 04/09 H Specimen Type: BLOOD No comment entered. Ordering Provider: RONNIE YEPEZ Report Released Date/Time: Apr 05, 2024 04:09 PM Reporting Lab: [facility] [place] [facility] [address] [facility] [address] Performing Lab: [facility] [place] [facility] [address] [facility] [address] [facility] [place] [facility] CBC AND DIFF (AUTO) IMMATURE GRANULOCYT ES [#/VOLUME] IN BLOOD 0.07 10*3/uL 0.00 - 0.06 04/09 H Specimen Type: BLOOD No comment entered. Ordering Provider: RONNIE YEPEZ Report Released Date/Time: Apr 05, 2024 04:09 PM Reporting Lab: [facility] [place] [facility] [address] [facility] [address] Performing Lab: [facility] [place] [facility] [address] [facility] [address] [facility] [place] [facility] CBC AND DIFF (AUTO) NRBC % 0.0 0.0 - 0.0 04/09 Specimen Type: BLOOD No comment entered. Ordering Provider: RONNIE YEPEZ Report Released Date/Time: Apr 05, 2024 04:09 PM Reporting [facility]: [facility] [address] [facility] [address] Performing Lab: [facility] [address] [facility] [address] [facility] CBC AND DIFF (AUTO) NRBC, ABS 0.00 10*3/uL 0.00 - 0.00 04/09 Specimen Type: BLOOD No comment entered. Ordering Provider: RONNIE YEPEZ Report Released Date/Time: Apr 05, 2024 04:09 PM Reporting Lab: [facility] [address] [facility] [address] Performing Lab: [facility] [address] [address] [facility] CREATINI NE EGFR PANEL CREATININE [MASS/VOLU ME] IN SERUM OR PLASMA 1.10 mg/dL 0.5 - 1.5 07/12 Specimen Type: PLASMA No comment entered. Ordering Provider: EMMY HARTMANN Report Released Date/Time: Jul 11, 2023 09:21 AM Reporting Lab: [facility] [address] [facility] [address] Performing Lab: [facility] [address] [facility] [address] [facility] CREATINI NE EGFR PANEL GLOMERULAR FILTRATION RATE/1.73 SQ M.PREDICTE D [VOLUME RATE/AREA] IN SERUM, PLASMA OR BLOOD BY CREATININE -BASED FORMULA (CKD-EPI 2020) 66 60 07/12 Specimen Type: PLASMA No comment entered. Ordering Provider: EMMY HARTMANN Report Released Date/Time: Jul 11, 2023 09:21 AM Reporting Lab: [facility] [address] [facility] [address] Performing Lab: [facility] [address] [facility] [address] [facility] TSH THYROTROPI N [UNITS/VOL UME] IN SERUM OR PLASMA 3.65 u[IU]/mL 0.35 - 5.00 04/09 Specimen Type: SERUM No comment entered. Ordering Provider: RONNIE YEPEZ Report Released Date/Time: Apr 07, 2023 04:15 PM Reporting Lab: [facility]ITALTR[facility]ITALUSE[address] [address] Performing Lab: [facility]R WSTRN [facility]ITALUSE[address] [address] [facility] BASIC METABOLI C PANEL (fasting ) UREA NITROGEN [MASS/VOLU ME] IN SERUM OR PLASMA 18 mg/dL 7 - 25 04/09 Specimen Type: SERUM No comment entered. Ordering Provider: RONNIE YEPEZ Report Released Date/Time: Apr 07, 2023 04:15 PM Reporting Lab: [facility]ITALUSE[address] [address] Performing Lab: [facility]ITALUSE[address] [address] [facility] BASIC METABOLI C PANEL (fasting ) GLUCOSE [MASS/VOLU ME] IN SERUM OR PLASMA 109 mg/dL 65 - 100 04/09 H Specimen Type: SERUM No comment entered. Ordering Provider: RONNIE YEPEZ Report Released Date/Time: Apr 07, 2023 04:15 PM Reporting Lab: [facility]ITALRCOMM[facility] HOSPITALTRN [facility]ITALUSE[address] [address] Performing Lab: [facility]ITALRL [facility]N [facility]ITALUSE[address] [address] [facility]R WSN [facility] BASIC METABOLI C PANEL (fasting ) SODIUM [MOLES/VOL UME] IN SERUM OR PLASMA 139 mmol/L 135 - 145 04/09 Specimen Type: SERUM No comment entered. Ordering Provider: RONNIE YEPEZ Report Released Date/Time: Apr 07, 2023 04:15 PM Reporting Lab: [facility]ITALRCOMM[facility] HOSPITALTRN [facility]ITALUSE[address] [address] Performing Lab: [facility] [place] [facility] [address] [facility] [address] [facility]ITALRL [facility] [place] [facility] BASIC METABOLI C PANEL (fasting ) POTASSIUM [MOLES/VOL UME] IN SERUM OR PLASMA 4.3 mmol/L 3.5 - 5.0 04/09 Specimen Type: SERUM No comment entered. Ordering Provider: RONNIE YEPEZ Report Released Date/Time: Apr 07, 2023 04:15 PM Reporting Lab: [facility] [place] [facility] [address] [facility] [address] Performing Lab: [facility] [place] [facility] [address] [facility] [address] [facility] [place] [facility] BASIC METABOLI C PANEL (fasting ) CHLORIDE [MOLES/VOL UME] IN SERUM OR PLASMA 105 mmol/L 100 - 110 04/09 Specimen Type: SERUM No comment entered. Ordering Provider: RONNIE EYPEZ Report Released Date/Time: Apr 07, 2023 04:15 PM Reporting Lab: [facility] [place] [facility] [address] [facility] [address] Performing Lab: [facility] [facility] [address] [facility] [address] [facility]ITALRL W[facility]N [facility]ITALUSE [facility] BASIC METABOLI C PANEL (fasting ) CARBON DIOXIDE, TOTAL [MOLES/VOL UME] IN SERUM OR PLASMA 25 meq/L 20 - 30 04/09 Specimen Type: SERUM No comment entered. Ordering Provider: RONNIE YEPEZ Report Released Date/Time: Apr 07, 2023 04:15 PM Reporting Lab: [facility] [place] [facility] [address] [facility] [address] Performing Lab: [facility] [facility] [address] [facility] [address] [facility] [place] [facility] BASIC METABOLI C PANEL (fasting ) CREATININE [MASS/VOLU ME] IN SERUM OR PLASMA 1.00 mg/dL 0.50 - 1.40 04/09 Specimen Type: SERUM No comment entered. Ordering Provider: RONNIE YEPEZ Report Released Date/Time: Apr 07, 2023 04:15 PM Reporting Lab: [facility] [place] [facility] [address] [facility] [address] Performing Lab: [facility] [facility] [address] [facility] [address] [facility] [place] [facility] BASIC METABOLI C PANEL (fasting ) GLOMERULAR FILTRATION RATE/1.73 SQ M.PREDICTE D [VOLUME RATE/AREA] IN SERUM, PLASMA OR BLOOD BY CREATININE -BASED FORMULA (CKD-EPI 2020) 74 mL/min 60 04/09 Specimen Type: SERUM No comment entered. Ordering Provider: RONNIE YEPEZ Report Released Date/Time: Apr 07, 2023 04:15 PM Reporting Lab: [facility] [place] [facility] [address] [facility] [address] Performing Lab: [facility] [place] [facility] [address] [facility] [address] [facility] [place] [facility] Vital Signs Combined list of inpatient and outpatient Vital Signs from Department of Defense and Veterans Affairs, ranging from 12 months to all on record, depending upon the facility. Vital Sign Value Date Comments Source PAIN 0 07/21/2024 14:27:13 [facility] TEMPERATURE 98.4 07/21/2024 14:27:13 [facility] SYSTOLIC BLOOD PRESSURE 164 07/14/19 25 12:40:38 [facility] DIASTOLIC BLOOD PRESSURE 88 025 12:40:38 [facility] PULSE OXIMETRY 98 07/14/2024 12:40:38 [facility] WEIGHT 229 07/14/2024 12:40:38 [facility] BMI 31 kg/m2 07/14/2024 12:40:38 [facility] PAIN 0 07/14/2024 12:40:38 [facility] HEIGHT 72 07/14/2024 12:40:38 [facility] TEMPERATURE 96.1 07/14/2024 12:40:38 [facility] PULSE 67 07/14/2024 12:40:38 [facility] RESPIRATION 18 07/14/2024 12:40:38 [facility] SYSTOLIC BLOOD PRESSURE 140 04/21/20 24 [...] ADM Date DC Date Status Disposition Source [facility] [place] [facility] Outpatient Encounter [id number] 04/10 [facility] [place] [facility] [place] [facility] OFFICE O/P EST LOW 20-29 MIN [id number] Diagnos is: ICD-10- CM 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 JESSICA YEPEZ RD D 04/16 [facility] [place] [facility] [place] [facility] OFF/OP EST MAY X REQ PHY/QHP [id number] Diagnos is: ICD-10- CM Z23 Encount er for immuniz atyasmin JESSICA YEPEZ RD D 04/25 [facility] [place] [facility] [place] [facility] OFFICE O/P EST LOW 20-29 MIN [id number] Diagnos is: ICD-10- CM I89.0 Lymphed milo, not elsewhe re classif ied SCOTT ASNTIAGO D 05/22 [facility] [place] [facility] [place] [facility] Outpatient Encounter [id number] 06/04 [facility] [place] [facility] [place] [facility] OFFICE O/P EST SF 10-19 MIN [id number] Diagnos is: ICD-10- CM R60.9 Edema, unspeci fied SCOTT SANTIAGO D 06/05 [facility] [place] [facility] OFFICE O/P NEW MOD 45-59 MIN [id number] Diagnos is: ICD-10- CM I87.2 Venous insuffi ciency (chroni c) (periph eral) TOBIAS MEEHAN MD 06/07 [facility] ORTHOTIC MGMT&TRAIN G 1ST ENC [id number] Diagnos is: ICD-10- CM R60.0 Localiz ed edema SEANRuddy ACK 06/07 [facility] Outpatient Encounter [id number] SIDSHAMARRuddy ACK 06/08 [facility] OFFICE O/P EST LOW 20 MIN [id number] Diagnos is: ICD-10- CM I89.0 Lymphed milo, not elsewhe re classif ied SA JEF ALMAGUER 07/12 [facility] Outpatient Encounter [id number] EMA BAKER 08/16 [facility] [place] [facility] OFFICE O/P EST MOD 30 MIN [id number] Diagnos is: ICD-10- CM M21.371 Foot drop, right foot SCOTT SANTIAGO D 10/01 [facility] [place] [facility] Outpatient Encounter [id number] 10/03 [facility] [place] [facility] Outpatient Encounter [id number] SCOTT SANTIAGO D 11/29 [facility] Outpatient [facility]counter [id number] 12/10 [facility] OFFICE O/P EST LOW 20 MIN [id number] Diagnos is: ICD-10- CM R60.0 Localiz ed edema SCOTT SANTIAGO D 12/30 [facility] DIABETIC CUSTOM MOLDED SHOE [id number] Diagnos is: ICD-10- CM M20.40 Other hammer toe(s) (acquir ed), unspeci fied foot DE LA CRUZGALA TT ANJUM 01/16 [facility] DIABETIC CUSTOM MOLDED SHOE [id number] Diagnos is: ICD-10- CM M21.371 Foot drop, right foot DI BOTELLO JUAN M 02/04 [facility] OFFICE O/P EST LOW 20 MIN [id number] Diagnos is: ICD-10- CM I10 Essenti al (primar y) hyperte JESSICA Fleming RD 04/18 [facility] OFFICE O/P EST MOD 30 MIN [id number] Diagnos is: ICD-10- CM I10 Essenti al (primar y) hyperte JESSICA Fleming RD 04/18 [facility] OFF/OP CONSLTJ NEW/EST HI 55 [id number] Diagnos is: ICD-10- CM M21.371 Foot drop, right foot JOEY ZHENG THI 04/21 [facility] Outpatient Encounter [id number] 04/21 [facility] Outpatient Encounter [id number] 05/05 [facility] [place] OFFICE O/P EST SF 10 MIN [id number] Diagnos is: ICD-10- CM I89.0 Lymphed milo, not elsewhe re classif ied MAXINE FAJARDO MD 07/14 [facility] ORTHOTIC MGMT&TRAIN G 1ST ENC [id number] Diagnos is: ICD-10- CM I87.2 Venous insuffi ciency (chroni c) (periph eral) SHAHID,WILL MARK 07/14 [facility] Outpatient Encounter [id number] SHAHID,WILL MARK 07/16 [facility] Outpatient Encounter [id number] 07/17 [facility] [place] OFFICE O/P EST LOW 20 MIN [id number] Diagnos is: ICD-10- CM M21.371 Foot drop, right foot FOSTER,SCOTT RLES D 07/21 [facility] OFFICE O/P EST LOW 20 MIN [id number] Diagnos is: ICD-10- CM M21.371 Foot drop, right foot FOSTER,SCOTT RLES D 07/28 [facility] Social History Combined list of available [...] [facility] History of tobacco use PR-TOBACCO NEVER USED 04/15/2018 [facility] History of tobacco use LIFETIME NON-TOBACCO USER 04/17/2017 [facility] History of tobacco use LIFETIME NON-TOBACCO USER 04/13/2016 [facility] History of tobacco use FORMER SMOKER - <100 LIFETIME CIGARETTES 04/20/2010 [facility] History of tobacco use HISTORY OF SMOKING 08/12/2004 [facility] History of tobacco use HISTORY OF SMOKING 05/29/2003 [facility] Plan of Care List of future care activities from [facility] facilities. Additional future care activities may be listed in the Assessment and Plan section. Date/Time Care Activity Care Activity Detail Facili ty 01/19/2025 AMBULATORY - MEDICINE AM[facility]ATORY - [facility]
[2024-10-18] MEDS: Diphth,Pertus(ACell),Tet Adult 0.5 ML SYRINGE IM (12:48)
[2024-10-18] MEDS: Bacitracin Oint 0.9 GM PACKET 1 APPL TOPICAL (13:45)
[2024-10-18] MEDS: Lidocaine HCl 1 % MPF 5 ML VIAL INFILTRATI (13:46)
[2024-10-18 14:01] VITALS: BP 158/62; PULSE 64; RESP 18; TEMP 36.7; O2SAT 94
[2024-10-18 14:23] VITALS: BP 158/62; PULSE 64; RESP 18; TEMP 36.7; O2SAT 94
== END 2024-10-18 14:23 | disposition home or self-care (01) ==
PROVIDERS: Emergency Provider Emergency Medicine; PCP Internal Medicine
DX: S61.216A Laceration without foreign body of right little finger without damage to nail, initial encounter (principal); W25.XXXA Contact with sharp glass, initial encounter; Z23 Encounter for immunization; Y93.G1 Activity, food preparation and clean up; Y92.010 Kitchen of single-family (private) house as the place of occurrence of the external cause; Y99.9 Unspecified external cause status; Z95.0 Presence of cardiac pacemaker; E78.00 Pure hypercholesterolemia, unspecified; I48.91 Unspecified atrial fibrillation; I10 Essential (primary) hypertension; Z79.01 Long term (current) use of anticoagulants; Z79.02 Long term (current) use of antithrombotics/antiplatelets; Z79.899 Other long term (current) drug therapy
CPT/HCPCS: 12001; 73140; 90471; 90715; 99283; 99284; J2003

== ENCOUNTER → 2024-10-18 11:23 | Outpatient (BNV) | payer MEDICARE, SELFPAY | PROVIDERS: Emergency Provider Emergency Medicine; PCP Internal Medicine; Visit Provider Radiology Diagnostic Radiology | DX: S61.210A Laceration without foreign body of right index finger without damage to nail, initial encounter (principal) | CPT/HCPCS: 73140 ==

== ENCOUNTER 2024-10-28 14:54 | Emergency (ER) | payer MEDICARE, SELFPAY ==
[2024-10-28 15:05] VITALS: BP 153/78; PULSE 77; RESP 18; TEMP 36.8; O2SAT 95
--- NOTE | 2024-10-28 15:09 | ED_ITS ---
HPI - General Adult General Chief complaint: Wound/Laceration Stated complaint: Suture removal Time Seen by Provider: 10/28/24 15:18 Source: patient, RN notes reviewed and old records reviewed Mode of arrival: ambulatory Limitations: no limitations History of Present Illness ED Provider: Chago HPI narrative: Patient is an 84-year-old male with history of AFib on warfarin, HTN, sick sinus syndrome presenting for removal of sutures from right 5th finger. Seen here on 10/18 and had 5 sutures placed to right 5th finger. Does report some concern about new erythema surrounding the sutures, questioning infection. Denies any discharge or drainage. Denies fevers, chills, body aches. MD complaint: Suture removal, wound check Onset (ago): day(s) Related Data Previous Rx's ?Medication ?Instructions ?Recorded doxepin 3 mg tablet 3 mg PO BEDTIME PRN sleep #30 tabs 03/16/23 fluticasone propionate 50 1 spray intranasal DAILY #9.9 mL 09/26/23 mcg/actuation nasal spray,suspension (Flonase Allergy Relief) warfarin 10 mg tablet (Jantoven) 10 mg .Route .COMPLEX #140 caps 11/08/23 warfarin 7.5 mg tablet (Jantoven) See Rx Instructions PO .QD 90 days 12/05/23 #90 tabs metoprolol succinate 25 mg 25 mg PO DAILY #90 tabs 07/25/24 tablet,extended release 24 hr simvastatin 20 mg tablet 20 mg PO BEDTIME #90 tabs 08/22/24 levothyroxine 75 mcg tablet 75 mcg PO QAM #90 tabs 08/25/24 furosemide 20 mg tablet 20 mg PO DAILY 90 days #90 tabs 10/20/24 cephalexin 500 mg capsule 500 mg PO QID #28 caps 10/28/24 Allergies Allergy/AdvReac Type Severity Reaction Status Date / Time doxycycline [Doxycycline] Allergy Severe HIVES Verified 10/28/24 15:14 lisinopril Allergy Severe RASH Verified 10/28/24 15:14 Review of Systems 2 Review of Systems: as per hpi Yes all other systems are reviewed and are negative Constitutional: Constitutional: Reports as per HPI PMFSH Past Medical History Medical History Insomnia COVID-19 virus infection Hyperparathyroidism Basal cell carcinoma of skin Tubular adenoma of colon Sick sinus syndrome Hypercholesterolemia Hypothyroid Atrial fibrillation Monoclonal paraproteinemia Hypertension Surgical History History of parathyroidectomy Family History Family History Father Past heart attack Social History Social History Housing: House Alcohol intake: current Alcohol intake frequency: holidays/special occasions only Alcohol type: wine Patient Tobacco Use Status: Never used Tobacco e-Cigarette/Vaping Use: Never Used Second Hand Smoke Exposure: No Advance Directives: No Advance Directives Information Provided: Yes service: Yes Current occupational status: retired Current occupational exposures/hazards: No Cognitive needs: No Hearing needs: No Vision needs: Yes Physical Exam ED Vital Signs: Vital Signs - 24 hr 10/28/24 15:13 Temperature 98.2 F Pulse Rate 77 Respiratory Rate 18 Blood Pressure 153/78 H Pulse Oximetry 95 Oxygen Delivery Method Room Air BMI result Body Mass Index 29.0 Vital signs have been reviewed and appear to be correct. Blood pressure normal. Heart rate normal. Respiratory rate normal. Temperature normal. Oxygen saturation normal. Const General: cooperative, healthy appearing and no acute distress Orientation/consciousness: oriented to person, oriented to place, oriented to time and patient oriented x3 Limitations: no limitations HENMT Head: Yes normocephalic and Yes atraumatic Ears: external ears normal General nose exam: Normal external nose present Face and sinus: Yes face symmetric Mouth: oropharynx normal and moist mucous membranes Throat: Yes uvula midline Eyes Pupils: Equal, round and reactive pupils present Neck Neck: Yes normal visual inspection and Yes supple Resp Effort & Inspection: normal respiratory effort and able to speak in complete sentences Auscultation: clear to auscultation bilaterally Cardio Rate: regular rate Rhythm: regular rhythm Heart sounds: S1 normal heart sound present and S2 normal heart sound present Skin General skin exam: elasticity normal and turgor normal Neuro General: oriented to person, oriented to place, oriented to time, patient oriented x3, moves all extremities, no focal motor deficits and CN's II-XI intact bilaterally Cranial nerves: Yes Equal, round and reactive pupils present Cognition (Neuro): normal cognition Extrem General: Yes full ROM, Yes no pedal edema and Yes no calf tenderness Hand/finger images: 2 1. 5 sutures with surrounding erythema, no lymphangitis, no drainage Psych Mental Status: mental status grossly normal Affect: normal affect Thought process: Normal thought process present Medical Decision Making Medical Decision Making [facility] Narrative: Patient is an 84-year-old male with history of AFib on warfarin, HTN, sick sinus syndrome presenting for removal of sutures from right 5th finger. On exam patient is awake, A+Ox3, VS WNL, afebrile, normal neurological exam without focal deficits, physical exam findings as above. Given reported symptoms and physical exam findings, initial differential includes but is not limited to suture removal, wound check, cellulitis. #5 sutures removed successfully without difficulty. Given the new erythema, will treat for cellulitis with cephalexin. Return precautions discussed. Instructed patient to follow up with PCP. Patient verbalized understanding of and agreement with plan. Differential Diagnosis Differential Diagnoses: The differential diagnosis associated with the presentation includes As per [facility] Admission/Observation Consideration of admission/observation: Escalation of care including admission/observation considered Patient would have been admitted to the hospital had their work up had any findings where hospital admission was appropriate and their clinical presentation warranted hospital admission. External Record Review External record reviewed: Inpatient record, Office record and Outpatient record Prescription Management I considered prescription management with: Antibiotic Discharge Plan Discharge Clinical Impression: Cellulitis of finger, Visit for suture removal Patient Disposition: Home, Self-Care Instructions: Cellulitis (ED), Stitches Removal (ED) Additional Instructions: You have been evaluated in the emergency department today for skin infection, also known as cellulitis. If the area of inflammation was outlined today in the ER, please return to the ER immediately if the area of redness increases beyond the border. Please take your prescribed antibiotics as directed for the full course of the medication. You can use Tylenol or ibuprofen per package instructions every 6 hours as needed for pain. If necessary, you can alternate these medications so that you can take one medication every 3 hours. For instance, at noon take ibuprofen, then at 3:00 p.m. take Tylenol, then at 6:00 p.m. take ibuprofen. Please schedule an appointment for follow-up with your primary care physician as soon as possible. Return to the emergency department if you experience recurrent vomiting, fevers greater than 100.4? F, increasing area of redness, warmth around the area, foul-smelling discharge from the area, increased tenderness around the area, or any other concerning symptoms. You were seen in the emergency department today for suture removal. Your wound appears to be healing well. Please keep the area surrounding the wound clean and dry andcover with Band-Aid until fully healed. Do not submerge in water until fully healed. Please continue to assess the wound daily. Keep the area out of direct sunlight for the next 6 months to help prevent scarring. If you develop fever, redness, swelling at the site of your laceration, or thick yellow drainage please come back to the ER for a wound check. Prescriptions: New cephalexin 500 mg capsule 500 mg PO QID Qty: 28 0RF No Action warfarin [Juntoven] 10 mg tablet 10 mg .ROUTE .COMPLEX Qty: 140 3RF Protocol: Dose Management Condition: Sunday (Week One) Dose/Route: 7.5 mg Instruction: 1 x 7.5 mg tablet Condition: Sunday Dose/Route: 10 mg Instruction: 1 x 10 mg tablet Condition: Sunday Dose/Route: 10 mg Instruction: 1 x 10 mg tablet Condition: Sunday Dose/Route: 10 mg Instruction: 1 x 10 mg tablet Condition: Dose/Route: 10 mg Instruction: 1 x 10 mg tablet Condition: Sunday Dose/Route: 10 mg Instruction: 1 x 10 mg tablet Condition: Sunday Dose/Route: 10 mg Instruction: 1 x 10 mg tablet Condition: Sunday (Week Two) Dose/Route: 7.5 mg Instruction: 1 x 7.5 mg tablet Condition: Sunday Dose/Route: 10 mg Instruction: 1 x 10 mg tablet Condition: Sunday Dose/Route: 10 mg Instruction: 1 x 10 mg tablet Condition: Sunday Dose/Route: 10 mg Instruction: 1 x 10 mg tablet Condition: Dose/Route: 10 mg Instruction: 1 x 10 mg tablet Condition: Sunday Dose/Route: 10 mg Instruction: 1 x 10 mg tablet Condition: Sunday Dose/Route: 10 mg Instruction: 1 x 10 mg tablet Protocol Text: Adjustment Start Date: 10/09/24 INR Value: 2.9 INR Date: 10/09/24 Recheck Date: 11/13/24 Rx Instructions: 10 mg X 6-7 DAYS/ WEEK WARFARIN DOSE PER INR warfarin [Jantoven] 7.5 mg tablet See Rx Instructions PO .QD 90 Days Qty: 90 3RF Protocol: Dose Management Condition: Sunday (Week One) Dose/Route: 7.5 mg Instruction: 1 x 7.5 mg tablet Condition: Sunday Dose/Route: 10 mg Instruction: 1 x 10 mg tablet Condition: Sunday Dose/Route: 10 mg Instruction: 1 x 10 mg tablet Condition: Sunday Dose/Route: 10 mg Instruction: 1 x 10 mg tablet Condition: Dose/Route: 10 mg Instruction: 1 x 10 mg tablet Condition: Sunday Dose/Route: 10 mg Instruction: 1 x 10 mg tablet Condition: Sunday Dose/Route: 10 mg Instruction: 1 x 10 mg tablet Condition: Sunday (Week Two) Dose/Route: 7.5 mg Instruction: 1 x 7.5 mg tablet Condition: Sunday Dose/Route: 10 mg Instruction: 1 x 10 mg tablet Condition: Sunday Dose/Route: 10 mg Instruction: 1 x 10 mg tablet Condition: Sunday Dose/Route: 10 mg Instruction: 1 x 10 mg tablet Condition: Dose/Route: 10 mg Instruction: 1 x 10 mg tablet Condition: Sunday Dose/Route: 10 mg Instruction: 1 x 10 mg tablet Condition: Sunday Dose/Route: 10 mg Instruction: 1 x 10 mg tablet Protocol Text: Adjustment Start Date: 10/09/24 INR Value: 2.9 INR Date: 10/09/24 Recheck Date: 11/13/24 Rx Instructions: 7.5 mg QD orally QD; metoprolol succinate 25 mg tablet extended release 24 hr 25 mg PO DAILY Qty: 90 0RF simvastatin 20 mg tablet 20 mg PO BEDTIME Qty: 90 0RF levothyroxine 75 mcg tablet 75 mcg PO QAM Qty: 90 2RF furosemide 20 mg tablet 20 mg PO DAILY 90 Days Qty: 90 3RF doxepin 3 mg tablet 3 mg PO BEDTIME PRN (Reason: sleep) Qty: 30 0RF fluticasone propionate [Flonase Allergy Relief] 50 mcg/actuation spray,suspension 1 spray intranasal DAILY Qty: 9.9 1RF Rx Instructions: administer into each nostril Print Language: Turkish
[2024-10-28 15:13] VITALS: BP 153/78; PULSE 77; RESP 18; TEMP 36.8; O2SAT 95; BMI 29.0
--- OUTSIDE RECORDS SUMMARY | 2024-10-28 16:12 | XMS_ITS | Clinical Summary ---
Author Organization [address] [place] [address] [place] [id number] Phone Care Team Providers Care Assembly Repairer Name Role Phone Royal Aguila MD Primary Care Provider [phone] Allergies Active Allergy Reactions Criticality Noted Date [...] Description 08/18/2024 3:30 PM EST Ancillary Procedure [facility] [address] [place] [address] Encounter for adjustment or management of cardiac [...] Description 02/18/2025 3:30 PM EDT Ancillary Procedure [facility] [address] [place] [address] 04/13/2025 9:25 AM EDT Office Visit [facility] [address] [place] [address] William Damon MD [address] [address] Health Maintenance Due Date Last Done Comments [...] this topic Medical Devices Implanted Type Area Operations And Intelligence Assistant Device Identifier Shelf Expiration Date Model / Serial / Lot Abbt-Stju Assurity Mri [id number] Implanted:04/2020 (Quantity not on file) Cardiac Pacemaker [facility] [employer] [facility] MRI 2272 / [id number] / Procedures Procedure Name Priority Date/Time Associated Diagnosis Comments [place] [facility] [place]ine 08/18/2024 3:38 PM EST Encounter for adjustment or management of cardiac device from Last 3 Months Results * [place] [facility] [place]08/18/2024 3:38 PM EST) Date Time Interrogation Session [id number] CV DEVICE CHECK Implantable Pulse Generator Operations And Intelligence Assistant [employer] CV DEVICE CHECK Implantable Pulse Generator Type IPG CV DEVICE CHECK Implantable Pulse Generator Model Annabel MRI 2272 CV DEVICE CHECK Implantable Pulse Generator Serial Number [id number] CV DEVICE CHECK Implantable Pulse Generator Implant [...] reviewed and tested * Presenting Rhythm: AF ARCHEOLOGIST 80s * Underlying Rhythm: AF VS 60s [...] reviewed and tested * Presenting Rhythm: AF ARCHEOLOGIST 80s * Underlying Rhythm: AF VS 60s * Heart Rate Histograms reviewed * Pacing and Detection Parameters were evaluated us Order Referral Cardiovascular CV IMPLANTABLE CAR DIAC DEVICE PROCEDURES Final Result from Last 3 Months Insurance MEDICARE [facility] Care Teams Assembly Repairer Relationship Specialty Start Date End Date Royal Aguila MD [address] [place] [address] [address] [facility] [place] [address] PCP - General Internal Medicine 05/15/20
--- OUTSIDE RECORDS SUMMARY | 2024-10-28 16:13 | XMS_ITS | Continuity of Care Document ---
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 Pretibial 2005. [facility] Screening for Malignant Neoplasms of colon Inactive Condition 05/29/2003 May 29, 2003 Entered By: JOSH RODRIGUEZ Comment: colonscopy 02/18 one benign polyp, Mother had colon CA. [facility] Diagnosis: ICD-10-CM M21.371 Foot drop, right foot Active Diagnosis [facility] [place] Diagnosis: ICD-10-CM I87.2 Venous insufficiency (chronic) (peripheral) Active Diagnosis [facility] Diagnosis: ICD-10-CM I89.0 Lymphedema, not elsewhere classified Active Diagnosis [facility] Diagnosis: ICD-10-CM I10 Essential (primary) hypertension Active Diagnosis [facility] Diagnosis: ICD-10-CM M20.40 Other hammer toe(s) (acquired), unspecified foot Active Diagnosis [facility] [place] Diagnosis: ICD-10-CM R60.0 Localized edema Active Diagnosis [facility] [place] [facility] Diagnosis: ICD-10-CM R60.9 Edema, unspecified Active [facility] Medications Combined list of outpatient medications from Department of Defense and [facility] Affairs facilities.Medications provided include 1) outpatient medications from the last 15 months, and 2) patient-reported medications. Medication Details Route Status Patient Instructions Prescription Expires Prescription Number Last Dispense Date Ordering Provider Order Date Order Qty Source FUROSEMIDE 20MG TAB TAKE ONE TABLET BY MOUTH EVERY DAY ORAL ACTIVE NED YEPEZ 2011 [facility] [place] [facility] LEVOTHYROXI NE NA 50MCG TAB (SYNTHROID) TAKE ONE TABLET BY MOUTH EVERY DAY ORAL ACTIVE NED YEPEZ 2011 [facility] [place] [facility] LISINOPRIL 20MG TAB TAKE ONE TABLET BY MOUTH EVERY DAY ORAL ACTIVE LUCHO,HOW FELIPA D 2011 [facility] [place] [facility] [facility] METOPROLOL SUCCINATE TAB,SA TAKE 12.5MG BY MOUTH EVERY DAY ORAL ACTIVE YEPEZ,HOW FELIPA D 2011 [facility] MULTIVITAMI NS W/MINERALS TAB TAKE ONE TABLET BY MOUTH ORAL ACTIVE [facility] SIMVASTATIN 40MG TAB TAKE ONE-HALF TABLET BY MOUTH AT BEDTIME ORAL ACTIVE YEPEZ,HOW FELIPA D [facility] WARFARIN NA (MOORE STATE) 10MG TAB TAKE DIRECTED BY MOUTH WITH DIRECTIO NS PROVIDED FROM THE [facility] ORAL ACTIVE YEPEZ,HOW FELIPA D [facility] Allergies, Adverse Reactions, Alerts Combined list of allergies from Department of Defense and Veterans Affairs facilities. It does not include entries that were removed or entered in error. Substance Category Reaction Severity Reaction type Status Date Reported Comments Source AMOXICILLIN Propensity to adverse reactions to drug (finding) Eruption active 3 [facility] CALCIUM Propensity to adverse reactions to drug (finding) Eruption active 3 [facility] MINOCYCLINE Propensity to adverse reactions to drug (finding) Eruption active 3 [facility] [place] [facility] Immunizations Combined list of available immunizations from the Department of Defense and Veterans Affairs facilities. Immunization Series Date Given Administered By Site Reaction Lot Number CVX Code Drug Manager Acute Status Comments Source COVID-19 (MODERNA), MRNA, LNP-S, PF, 50 MCG/0.5 ML (AGES 12+ YEARS) 2023 CASSI BONNER LEFT DELTO ID [id number] 312 complet ed Booster for Series, YANET ANDRADE AT [facility] INFLUENZA, HIGH-DOSE, TRIVALENT, PF 2023 CASSI BONNER RIGHT DELTO ID [id number] 135 complet ed Completed Series, ADMINSOURAV ANDRADE AT [facility] RSV, BIVALENT, PROTEIN SUBUNIT RSVPREF, DILUENT RECONSTITUTED , 0.5 ML, PF 2022 CASSI BONNER RIGHT DELTO ID [id number] 305 complet ed Completed Series, [facility] COVID-19 (MODERNA), MRNA, LNP-S, PF, 50 MCG/0.5 ML (AGES 12+ YEARS) 4 2022 SHYLA HERNANDEZ M RIGHT DELTO ID [id number] 312 complet ed [facility] INFLUENZA, HIGH-DOSE, QUADRIVALENT 2022 SHYLA HERNANDEZ ER M LEFT DELTO ID [id number] 197 complet ed [facility] TDAP 2022 SHYLA HERNANDEZ M LEFT DELTO ID [id number] 115 complet ed [facility] INFLUENZA, UNSPECIFIED FORMULATION 2021 88 complet ed [facility] COVID-19 (MODERNA), MRNA, LNP-S, PF, 100 MCG OR 50 MCG DOSE 3 2020 207 complet ed [id number] [facility] INFLUENZA VACCINE, QUADRIVALENT, ADJUVANTED 2020 205 complet ed [facility] COVID-19 (MODERNA), MRNA, LNP-S, PF, 100 MCG/0.5 ML DOSE 2 2020 207 complet ed MOD; [id number]; 1 [facility] COVID-19 (MODERNA), MRNA, LNP-S, PF, 100 MCG/0.5 ML DOSE 1 2020 207 complet ed MOD; [id number]; 1 [facility] [place] [facility] INFLUENZA, UNSPECIFIED FORMULATION 2019 88 complet ed [place] [facility] INFLUENZA, TRIVALENT, ADJUVANTED 2017 168 [...] 05, 2024 04:09 PM Reporting Lab: [facility] [place] [facility] [address] [facility] [address] Performing Lab: [place] [facility] [facility] [place] [facility] [address] [facility] [address] [place] [facility] [facility] [place] [facility] LIPID PANEL FASTING CHOLESTERO L [MASS/VOLU ME] IN SERUM OR PLASMA 130 mg/dL 04/09 Specimen Type: SERUM No comment entered. Ordering Provider: RONNIE YEPEZ Report Released Date/Time: Apr 05, 2024 04:09 PM Reporting Lab: [place] [facility] [place] [facility] [address] [facility] [address] Performing Lab: [place] [facility] [facility] [place] [facility] [address] [facility] [address] [facility] [place] [facility] LIPID PANEL FASTING TRIGLYCERI DE [MASS/VOLU ME] IN SERUM OR PLASMA 92 mg/dL 0 - 150 04/09 Specimen Type: SERUM No comment entered. Ordering Provider: RONNIE YEPEZ Report Released Date/Time: Apr 05, 2024 04:09 PM Reporting Lab: [place] [facility] [place] [facility] [address] [facility] [address] Performing Lab: [place] [facility] [facility] [place] [facility] [address] [facility] [address] [place] [facility] [facility] [place] [facility] LIPID PANEL FASTING CHOLESTERO L IN LDL [MASS/VOLU ME] IN SERUM OR PLASMA BY CALCULATIO N 67 mg/dL 0 - 129 04/09 Specimen Type: SERUM No comment entered. Ordering Provider: RONNIE YEPEZ Report Released Date/Time: Apr 05, 2024 04:09 PM Reporting Lab: [facility] [place] [facility] [address] [facility] [address] Performing Lab: [facility] [place] [facility] [address] [facility] [address] [facility] [place] [facility] LIPID PANEL FASTING CHOLESTERO L.TOTAL/CH OLESTEROL IN HDL [MASS RATIO] IN SERUM OR PLASMA 2.9 04/09 Specimen Type: SERUM No comment entered. Ordering Provider: RONNIE YEPEZ Report Released Date/Time: Apr 05, 2024 04:09 PM Reporting Lab: [facility] [place] [facility] [address] [facility] [address] Performing Lab: [facility] [place] [facility] [address] [facility] [address] [place] [facility] [facility] [place] [facility] LIPID PANEL FASTING CHOLESTERO L IN HDL [MASS/VOLU ME] IN SERUM OR PLASMA 45 mg/dL 40 - 60 04/09 Specimen Type: SERUM No comment entered. Ordering Provider: RONNIE YEPEZ Report Released Date/Time: Apr 05, 2024 04:09 PM Reporting Lab: [facility] [place] [facility] [address] [facility] [address] Performing Lab: [facility] [place] [facility] [address] [facility] [address] [facility] [place] [facility] URINALYS IS CLEAN CATCH COLOR OF URINE Colorles s 04/09 Specimen Type: URINE Comment: If Glucose = >500 and Ketones are positive, please alert the Physician. Ordering Provider: RONNIE YEPEZ Report Released Date/Time: Apr 05, 2024 04:09 PM Reporting Lab: [facility] [place] [facility] [address] [facility] [address] Performing Lab: [facility] [place] [address] [address] [place] [facility] [facility] [place] [facility] URINALYS IS CLEAN CATCH APPEARANCE OF URINE Clear 04/09 Specimen Type: URINE Comment: If Glucose = >500 and Ketones are positive, please alert the Physician. Ordering Provider: RONNIE YEPEZ Report Released Date/Time: Apr 05, 2024 04:09 PM Reporting Lab: [facility] [place] [facility] [address] [facility] [address] Performing Lab: [facility] [place] [facility] [address] [facility] [address] [place] [facility] [facility] [place] [facility] URINALYS IS CLEAN CATCH GLUCOSE [MASS/VOLU ME] IN URINE Normalmg /dL 04/09 Specimen Type: URINE Comment: If Glucose = >500 and Ketones are positive, please alert the Physician. Ordering Provider: RONNIE YEPEZ Report Released Date/Time: Apr 05, 2024 04:09 PM Reporting Lab: [facility] [place] [address] [address] Performing Lab: [place] [facility] [address] [address] [facility] [place] [facility] URINALYS IS CLEAN CATCH KETONES [MASS/VOLU ME] IN URINE BY TEST STRIP NEGATIVE mg/dL 04/09 Specimen Type: URINE Comment: If Glucose = >500 and Ketones are positive, please alert the Physician. Ordering Provider: RONNIE YEPEZ Report Released Date/Time: Apr 05, 2024 04:09 PM Reporting Lab: [facility] [place] [address] [address] Performing Lab: [place] [facility] [facility] [facility] [address] [facility] [address] [facility] [place] [facility] URINALYS IS CLEAN CATCH ERYTHROCYT ES [PRESENCE] IN URINE SEDIMENT BY LIGHT MICROSCOPY NEGATIVE mg/dL 04/09 Specimen Type: URINE Comment: If Glucose = >500 and Ketones are positive, please alert the Physician. Ordering Provider: RONNIE YEPEZ Report Released Date/Time: Apr 05, 2024 04:09 PM Reporting Lab: [facility] [place] [address] [address] Performing Lab: [place] [facility] [place] [facility] [address] [facility] [address] [facility] [place] [facility] URINALYS IS CLEAN CATCH PROTEIN [MASS/VOLU ME] IN URINE BY TEST STRIP NEGATIVE mg/dL 04/09 Specimen Type: URINE Comment: If Glucose = >500 and Ketones are positive, please alert the Physician. Ordering Provider: RONNIE YEPEZ Report Released Date/Time: Apr 05, 2024 04:09 PM Reporting Lab: [facility] [place] [facility] [address] [facility] [address] Performing Lab: [place] [facility] [facility] [place] [facility] [address] [facility] [address] [place] [facility] [facility] [place] [facility] URINALYS IS CLEAN CATCH NITRITE [PRESENCE] IN URINE NEGATIVE mg/dL 04/09 Specimen Type: URINE Comment: If Glucose = >500 and Ketones are positive, please alert the Physician. Ordering Provider: RONNIE YEPEZ Report Released Date/Time: Apr 05, 2024 04:09 PM Reporting Lab: [facility] [place] [facility] [address] [facility] [address] Performing Lab: [place] [facility] [facility] [facility] [address] [facility] [address] [facility] [place] [facility] URINALYS IS CLEAN CATCH BILIRUBIN. TOTAL [PRESENCE] IN URINE NEGATIVE mg/dL 04/09 Specimen Type: URINE Comment: If Glucose = >500 and Ketones are positive, please alert the Physician. Ordering Provider: RONNIE YEPEZ Report Released Date/Time: Apr 05, 2024 04:09 PM Reporting Lab: [facility] [place] [facility] [address] [facility] [address] Performing Lab: [place] [facility] [facility] [facility] [address] [facility] [address] [facility] [place] [facility] URINALYS IS CLEAN CATCH SPECIFIC GRAVITY OF URINE BY REFRACTOME TRY 1.009 1.016 - 1.022 04/09 L Specimen Type: URINE Comment: If Glucose = >500 and Ketones are positive, please alert the Physician. Ordering Provider: RONNIE YEPEZ Report Released Date/Time: Apr 05, 2024 04:09 PM Reporting Lab: [facility] [place] [facility] [address] [facility] [address] Performing Lab: [facility] [place] [facility] [address] [facility] [address] [facility] [place] [facility] URINALYS IS CLEAN CATCH PH OF URINE BY TEST STRIP 6.5 5.0 - 9.0 04/09 Specimen Type: URINE Comment: If Glucose = >500 and Ketones are positive, please alert the Physician. Ordering Provider: RONNIE YEPEZ Report Released Date/Time: Apr 05, 2024 04:09 PM Reporting Lab: [facility] [place] [facility] [address] [facility] [address] Performing Lab: [facility] [place] [facility] [address] [facility] [address] [place] [facility] [place] [facility] URINALYS IS CLEAN CATCH UROBILINOG EN [MASS/VOLU ME] IN URINE BY TEST STRIP Normalmg /dL <2.0 - 2.0 04/09 Specimen Type: URINE Comment: If Glucose = >500 and Ketones are positive, please alert the Physician. Ordering Provider: RONNIE YEPEZ Report Released Date/Time: Apr 05, 2024 04:09 PM Reporting Lab: [facility] [place] [facility] [address] [facility] [address] Performing Lab: [facility] [place] [facility] [address] [facility] [address] [facility] [place] [facility] URINALYS IS CLEAN CATCH LEUKOCYTE ESTERASE [PRESENCE] IN URINE BY TEST STRIP TRACE 04/09 Specimen Type: URINE Comment: If Glucose = >500 and Ketones are positive, please alert the Physician. Ordering Provider: RONNIE YEPEZ Report Released Date/Time: Apr 05, 2024 04:09 PM Reporting Lab: [facility] [place] [facility] [address] [facility] [address] Performing Lab: [facility] [place] [facility] [address] [facility] [address] [facility] [place] [facility] BASIC METABOLI C PANEL (fasting ) UREA NITROGEN [MASS/VOLU ME] IN SERUM OR PLASMA 22 mg/dL 7 - 25 04/09 Specimen Type: SERUM No comment entered. Ordering Provider: RONNIE YEPEZ Report Released Date/Time: Apr 05, 2024 04:09 PM Reporting Lab: [facility] [address] [address] Performing Lab: [facility] [address] [address] [facility] BASIC METABOLI C PANEL (fasting ) GLUCOSE [MASS/VOLU ME] IN SERUM OR PLASMA 104 mg/dL 65 - 100 04/09 H Specimen Type: SERUM No comment entered. Ordering Provider: RONNIE YEPEZ Report Released Date/Time: Apr 05, 2024 04:09 PM Reporting Lab: [facility] [address] [address] Performing Lab: [facility] [address] [address] [facility] BASIC METABOLI C PANEL (fasting ) SODIUM [MOLES/VOL UME] IN SERUM OR PLASMA 138 mmol/L 135 - 145 04/09 Specimen Type: SERUM No comment entered. Ordering Provider: RONNIE YEPEZ Report Released Date/Time: Apr 05, 2024 04:09 PM Reporting Lab: [facility] [address] [address] Performing Lab: [facility] [address] [address] [facility] BASIC METABOLI C PANEL (fasting ) POTASSIUM [MOLES/VOL UME] IN SERUM OR PLASMA 4.5 mmol/L 3.5 - 5.0 04/09 Specimen Type: SERUM No comment entered. Ordering Provider: RONNIE YEPEZ Report Released Date/Time: Apr 05, 2024 04:09 PM Reporting Lab: [facility] [address] [address] Performing Lab: [facility] [place] [facility] [address] [facility] [address] [facility] BASIC METABOLI C PANEL (fasting ) CHLORIDE [MOLES/VOL UME] IN SERUM OR PLASMA 104 mmol/L 100 - 110 04/09 Specimen Type: SERUM No comment entered. Ordering Provider: RONNIE YEPEZ Report Released Date/Time: Apr 05, 2024 04:09 PM Reporting Lab: [place] [facility] [place] [facility] [address] [facility] [address] Performing Lab: [facility] [address] [facility] [address] [facility] BASIC METABOLI C PANEL (fasting ) CARBON DIOXIDE, TOTAL [MOLES/VOL UME] IN SERUM OR PLASMA 28 meq/L 20 - 30 04/09 Specimen Type: SERUM No comment entered. Ordering Provider: RONNIE YEPEZ Report Released Date/Time: Apr 05, 2024 04:09 PM Reporting Lab: [facility] [address] [facility] [address] Performing Lab: [facility] [address] [facility] [address] [facility] BASIC METABOLI C PANEL (fasting ) CREATININE [MASS/VOLU ME] IN SERUM OR PLASMA 0.90 mg/dL 0.50 - 1.40 04/09 Specimen Type: SERUM No comment entered. Ordering Provider: RONNIE YEPEZ Report Released Date/Time: Apr 05, 2024 04:09 PM Reporting Lab: [place] [facility] [facility] [facility] [address] [facility] [address] Performing Lab: [place] [facility] [facility] [address] [facility] [address] [facility] BASIC METABOLI C PANEL (fasting ) GLOMERULAR FILTRATION RATE/1.73 SQ M.PREDICTE D [VOLUME RATE/AREA] IN SERUM, PLASMA OR BLOOD BY CREATININE -BASED FORMULA (CKD-EPI 2020) 84 mL/min 60 04/09 Specimen Type: SERUM No comment entered. Ordering Provider: RONNIE YEPEZ Report Released Date/Time: Apr 05, 2024 04:09 PM Reporting Lab: [facility] [place] [facility] [address] [facility] [address] Performing Lab: [facility] [place] [facility] [address] [facility] [address] [facility] [place] [facility] LIVER FUNCTION PROTEIN [MASS/VOLU ME] IN SERUM OR PLASMA 7.4 g/dL 6.0 - 8.3 04/09 Specimen Type: SERUM No comment entered. Ordering Provider: RONNIE YEPEZ Report Released Date/Time: Apr 05, 2024 04:09 PM Reporting Lab: [facility] [place] [facility] [address] [facility] [address] Performing Lab: [facility] [place] [facility] [address] [facility] [address] [place] [facility] [facility] [facility] LIVER FUNCTION ALBUMIN [MASS/VOLU ME] IN SERUM OR PLASMA 4.3 g/dL 3.5 - 5.0 04/09 Specimen Type: SERUM No comment entered. Ordering Provider: RONNIE YEPEZ Report Released Date/Time: Apr 05, 2024 04:09 PM Reporting Lab: [facility] [place] [facility] [address] [facility] [address] Performing Lab: [facility] [place] [facility] [address] [facility] [address] [place] [facility] [facility] [facility] LIVER FUNCTION ALKALINE PHOSPHATAS E [ENZYMATIC ACTIVITY/V OLUME] IN SERUM OR PLASMA 58 U/L 40 - 150 04/09 Specimen Type: SERUM No comment entered. Ordering Provider: RONNIE YEPEZ Report Released Date/Time: Apr 05, 2024 04:09 PM Reporting Lab: [facility] [place] [facility] [address] [facility] [address] Performing Lab: [facility] [place] [facility] [address] [facility] [address] [facility] [place] [facility] LIVER FUNCTION ASPARTATE AMINOTRANS FERASE [ENZYMATIC ACTIVITY/V OLUME] IN SERUM OR PLASMA 21 U/L 5 - 34 04/09 Specimen Type: SERUM No comment entered. Ordering Provider: RONNIE YEPEZ Report Released Date/Time: Apr 05, 2024 04:09 PM Reporting Lab: [facility] [address] [facility] [address] Performing Lab: [facility]ENTERUSE[address] [address] [facility] LIVER FUNCTION ALANINE AMINOTRANS FERASE [ENZYMATIC ACTIVITY/V OLUME] IN SERUM OR PLASMA 25 U/L 04/09 Specimen Type: SERUM No comment entered. Ordering Provider: RONNIE YEPEZ Report Released Date/Time: Apr 05, 2024 04:09 PM Reporting Lab: [facility] [address] [address] Performing Lab: [facility]N [address] [address] [facility] LIVER FUNCTION BILIRUBIN. TOTAL [MASS/VOLU ME] IN SERUM OR PLASMA 0.9 mg/dL 0.2 - 1.2 04/09 Specimen Type: SERUM No comment entered. Ordering Provider: RONNIE YEPEZ Report Released Date/Time: Apr 05, 2024 04:09 PM Reporting Lab: [facility] [address] [address] Performing Lab: [facility] [address] [address] [facility] MICROSCO PIC AUTOMATE D, URINE LEUKOCYTES [#/AREA] IN URINE SEDIMENT BY MICROSCOPY HIGH POWER FIELD 0-5/[HPF ] 0 - 5 04/09 Specimen Type: URINE Comment: If Glucose = >500 and Ketones are positive, please alert the Physician. Ordering Provider: RONNIE YEPEZ Report Released Date/Time: Apr 05, 2024 04:09 PM Reporting Lab: [facility] [address] [address] Performing Lab: [facility] [place] [facility] [address] [facility] [address] [facility] [employer] PIC AUTOMATE D, URINE ERYTHROCYT ES [#/AREA] IN URINE SEDIMENT BY MICROSCOPY HIGH POWER FIELD 0-2/[HPF ] 0 - 3 04/09 Specimen Type: URINE Comment: If Glucose = >500 and Ketones are positive, please alert the Physician. Ordering Provider: RONNIE YEPEZ Report Released Date/Time: Apr 05, 2024 04:09 PM Reporting Lab: [facility] [address] [facility] [address] Performing Lab: [facility] [facility] [address] [facility] [address] [facility] CBC AND DIFF (AUTO) LEUKOCYTES [#/VOLUME] IN BLOOD BY AUTOMATED COUNT 5.27 10*3/uL 4.50 - 11.00 04/09 Specimen Type: BLOOD No comment entered. Ordering Provider: RONNIE YEPEZ Report Released Date/Time: Apr 05, 2024 04:09 PM Reporting Lab: [facility] [address] [facility] [address] Performing Lab: [facility]N [facility] [address] [facility] [address] [facility] CBC AND DIFF (AUTO) ERYTHROCYT ES [#/VOLUME] IN BLOOD BY AUTOMATED COUNT 4.15 10*6/uL 4.23 - 5.66 04/09 L Specimen Type: BLOOD No comment entered. Ordering Provider: RONNIE YEPEZ Report Released Date/Time: Apr 05, 2024 04:09 PM Reporting Lab: [facility] [address] [facility] [address] Performing Lab: [facility]ITALN [facility]ENTERUSE[address] [address] [facility] CBC AND DIFF (AUTO) HEMOGLOBIN [MASS/VOLU ME] IN BLOOD 13.2 g/dL 12.8 - 17 04/09 Specimen Type: BLOOD No comment entered. Ordering Provider: RONNIE YEPEZ Report Released Date/Time: Apr 05, 2024 04:09 PM Reporting Lab: [facility] [address] [facility] [address] Performing Lab: [facility] [address] [facility] [address] [facility] CBC AND DIFF (AUTO) HEMATOCRIT [VOLUME FRACTION] OF BLOOD BY AUTOMATED COUNT 38.2 39.2 - 50.4 04/09 L Specimen Type: BLOOD No comment entered. Ordering Provider: RONNIE YEPEZ Report Released Date/Time: Apr 05, 2024 04:09 PM Reporting Lab: [facility] [address] [facility] [address] Performing Lab: [facility] [place] [facility] [address] [facility] [address] [facility] CBC AND DIFF (AUTO) MCV [ENTITIC VOLUME] BY AUTOMATED COUNT 92.0 fL 82 - 99 04/09 Specimen Type: BLOOD No comment entered. Ordering Provider: RONNIE YEPEZ Report Released Date/Time: Apr 05, 2024 04:09 PM Reporting Lab: [facility] [address] [facility] [address] Performing Lab: [facility] [address] [facility] [address] [facility] [place] [facility] CBC AND DIFF (AUTO) MCHC [MASS/VOLU ME] BY AUTOMATED COUNT 34.6 g/dL 30.8 - 35.1 04/09 Specimen Type: BLOOD No comment entered. Ordering Provider: RONNIE YEPEZ Report Released Date/Time: Apr 05, 2024 04:09 PM Reporting Lab: [facility] [address] [facility] [address] Performing Lab: [facility] [address] [facility] [address] [facility] CBC AND DIFF (AUTO) PLATELETS [#/VOLUME] IN BLOOD BY AUTOMATED COUNT 138 10*3/uL 140 - 360 04/09 L Specimen Type: BLOOD No comment entered. Ordering Provider: RONNIE YEPEZ Report Released Date/Time: Apr 05, 2024 04:09 PM Reporting Lab: [facility] [place] [facility] [address] [facility] [address] Performing Lab: [facility] [address] [facility] [address] [place] [facility] [place] [facility] CBC AND DIFF (AUTO) ERYTHROCYT E DISTRIBUTI ON WIDTH [RATIO] BY AUTOMATED COUNT 13.0 12.0 - 16.0 04/09 Specimen Type: BLOOD No comment entered. Ordering Provider: RONNIE YEPEZ Report Released Date/Time: Apr 05, 2024 04:09 PM Reporting Lab: [facility] [place] [facility] [address] [facility] [address] Performing Lab: [facility] [place] [facility] [address] [facility] [address] [facility] [place] [facility] CBC AND DIFF (AUTO) MONOCYTES [#/VOLUME] IN BLOOD BY AUTOMATED COUNT 0.49 10*3/uL 0.30 - 1.10 04/09 Specimen Type: BLOOD No comment entered. Ordering Provider: RONNIE YEPEZ Report Released Date/Time: Apr 05, 2024 04:09 PM Reporting Lab: [facility] [place] [facility] [address] [facility] [address] Performing Lab: [facility] [place] [facility] [address] [facility] [address] [place] [facility] [place] [facility] CBC AND DIFF (AUTO) MCH [ENTITIC MASS] BY AUTOMATED COUNT 31.8 pg 26.2 - 32.6 04/09 Specimen Type: BLOOD No comment entered. Ordering Provider: RONNIE YEPEZ Report Released Date/Time: Apr 05, 2024 04:09 PM Reporting Lab: [facility] [place] [facility] [address] [facility] [address] Performing Lab: [place] [facility] [place] [facility] [address] [facility] [address] [facility] CBC AND DIFF (AUTO) NEUTROPHIL S/100 LEUKOCYTES IN BLOOD BY AUTOMATED COUNT 56.7 43.7 - 75.8 04/09 Specimen Type: BLOOD No comment entered. Ordering Provider: RONNIE YEPEZ Report Released Date/Time: Apr 05, 2024 04:09 PM Reporting Lab: [facility] [address] [facility] [address] Performing Lab: [facility] [address] [facility] [address] [facility] CBC AND DIFF (AUTO) LYMPHOCYTE S/100 LEUKOCYTES IN BLOOD BY AUTOMATED COUNT 28.1 14.0 - 42.3 04/09 Specimen Type: BLOOD No comment entered. Ordering Provider: RONNIE YEPEZ Report Released Date/Time: Apr 05, 2024 04:09 PM Reporting Lab: [facility] [address] [place] [address] Performing Lab: [facility] [address] [facility] [address] [facility] CBC AND DIFF (AUTO) MONOCYTES/ 100 LEUKOCYTES IN BLOOD BY AUTOMATED COUNT 9.3 5.1 - 13.7 04/09 Specimen Type: BLOOD No comment entered. Ordering Provider: RONNIE YEPEZ Report Released Date/Time: Apr 05, 2024 04:09 PM Reporting Lab: [facility] [place] [facility] [address] [facility] [address] Performing Lab: [facility] [address] [facility] [address] [facility] CBC AND DIFF (AUTO) EOSINOPHIL S/100 LEUKOCYTES IN BLOOD BY AUTOMATED COUNT 3.8 0.4 - 6.8 04/09 Specimen Type: BLOOD No comment entered. Ordering Provider: RONNIE YEPEZ Report Released Date/Time: Apr 05, 2024 04:09 PM Reporting Lab: [facility] [address] [facility] [address] Performing Lab: [facility] [place] [facility] [address] [facility] [address] [place] [facility] [place] [facility] CBC AND DIFF (AUTO) BASOPHILS/ 100 LEUKOCYTES IN BLOOD BY AUTOMATED COUNT 0.8 0.1 - 2.0 04/09 Specimen Type: BLOOD No comment entered. Ordering Provider: RONNIE YEPEZ Report Released Date/Time: Apr 05, 2024 04:09 PM Reporting Lab: [facility] [place] [facility] [address] [facility] [address] Performing Lab: [facility] [place] [facility] [address] [facility] [address] [place] [facility] [place] [facility] CBC AND DIFF (AUTO) NEUTROPHIL S [#/VOLUME] IN BLOOD BY AUTOMATED COUNT 2.99 10*3/uL 2.20 - 7.60 04/09 Specimen Type: BLOOD No comment entered. Ordering Provider: RONNIE YEPEZ Report Released Date/Time: Apr 05, 2024 04:09 PM Reporting Lab: [facility] [place] [facility] [address] [facility] [address] Performing Lab: [facility] [place] [facility] [address] [facility] [address] [place] [facility] [place] [facility] CBC AND DIFF (AUTO) LYMPHOCYTE S [#/VOLUME] IN BLOOD BY AUTOMATED COUNT 1.48 10*3/uL 1.00 - 3.20 04/09 Specimen Type: BLOOD No comment entered. Ordering Provider: RONNIE YEPEZ Report Released Date/Time: Apr 05, 2024 04:09 PM Reporting Lab: [facility] [place] [facility] [address] [facility] [address] Performing Lab: [place] [facility] [place] [address] [address] [place] [facility] [place] [facility] CBC AND DIFF (AUTO) EOSINOPHIL S [#/VOLUME] IN BLOOD BY AUTOMATED COUNT 0.20 10*3/uL 0.03 - 0.44 04/09 Specimen Type: BLOOD No comment entered. Ordering Provider: RONNIE YEPEZ Report Released Date/Time: Apr 05, 2024 04:09 PM Reporting Lab: [facility] [place] [facility] [address] [facility] [address] Performing Lab: [facility] [place] [facility] [address] [facility] [address] [facility] CBC AND DIFF (AUTO) BASOPHILS [#/VOLUME] IN BLOOD BY AUTOMATED COUNT 0.04 10*3/uL 0.01 - 0.13 04/09 Specimen Type: BLOOD No comment entered. Ordering Provider: RONNIE YEPEZ Report Released Date/Time: Apr 05, 2024 04:09 PM Reporting Lab: [facility] [place] [facility] [address] [facility] [address] Performing Lab: [place] [facility] [place] [facility] [address] [facility] [address] [place] [facility] [place] [facility] CBC AND DIFF (AUTO) IMMATURE GRANULOCYT ES/100 LEUKOCYTES IN BLOOD BY AUTOMATED COUNT 1.3 0.0 - 0.7 04/09 H Specimen Type: BLOOD No comment entered. Ordering Provider: RONNIE YEPEZ Report Released Date/Time: Apr 05, 2024 04:09 PM Reporting Lab: [facility] [place] [facility] [address] [facility] [address] Performing Lab: [facility] [place] [facility] [address] [facility] [address] [place] [facility] [place] [facility] CBC AND DIFF (AUTO) IMMATURE GRANULOCYT ES [#/VOLUME] IN BLOOD 0.07 10*3/uL 0.00 - 0.06 04/09 H Specimen Type: BLOOD No comment entered. Ordering Provider: RONNIE YEPEZ Report Released Date/Time: Apr 05, 2024 04:09 PM Reporting Lab: [facility] [place] [facility] [address] [facility] [address] Performing Lab: [facility] [place] [facility] [address] [facility] [address] [facility] [place] CBC AND DIFF (AUTO) NRBC % 0.0 0.0 - 0.0 04/09 Specimen Type: BLOOD No comment entered. Ordering Provider: RONNIE YEPEZ Report Released Date/Time: Apr 05, 2024 04:09 PM Reporting Lab: [facility] [place] [facility] [address] [facility] [address] Performing Lab: [place] [facility] [facility] [address] [facility] [address] [facility] CBC AND DIFF (AUTO) NRBC, ABS 0.00 10*3/uL 0.00 - 0.00 04/09 Specimen Type: BLOOD No comment entered. Ordering Provider: RONNIE YEPEZ Report Released Date/Time: Apr 05, 2024 04:09 PM Reporting Lab: [facility] [place] [facility] [address] [facility] [address] Performing Lab: [facility]USE[facility] [address] [facility] [address] [facility]USE [facility] CREATINI NE EGFR PANEL CREATININE [MASS/VOLU ME] IN SERUM OR PLASMA 1.10 mg/dL 0.5 - 1.5 07/12 Specimen Type: PLASMA No comment entered. Ordering Provider: EMMY HARTMANN Report Released Date/Time: Jul 11, 2023 09:21 AM Reporting Lab: [facility] [address] [facility] [address] Performing Lab: [facility] [address] [facility] [address] [facility] CREATINI NE EGFR PANEL GLOMERULAR FILTRATION RATE/1.73 SQ M.PREDICTE D [VOLUME RATE/AREA] IN SERUM, PLASMA OR BLOOD BY CREATININE -BASED FORMULA (CKD-EPI 2020) 66 60 07/12 Specimen Type: PLASMA No comment entered. Ordering Provider: EMMY HARTMANN Report Released Date/Time: Jul 11, 2023 09:21 AM Reporting Lab: [facility] [address] [facility] [address] Performing Lab: [facility] [address] [facility] [address] [facility] TSH THYROTROPI N [UNITS/VOL UME] IN SERUM OR PLASMA 3.65 u[IU]/mL 0.35 - 5.00 04/09 Specimen Type: SERUM No comment entered. Ordering Provider: RONNIE YEPEZ Report Released Date/Time: Apr 07, 2023 04:15 PM Reporting Lab: [facility] [place] [facility] [address] [facility] [address] Performing Lab: [place] [facility] [facility] [facility] [address] [facility] [address] [facility] LIVER FUNCTION PROTEIN [MASS/VOLU ME] IN SERUM OR PLASMA 7.3 g/dL 6.0 - 8.3 04/09 Specimen Type: SERUM No comment entered. Ordering Provider: RONNIE YEPEZ Report Released Date/Time: Apr 07, 2023 04:15 PM Reporting Lab: [place] [facility] [facility] [address] Performing Lab: [place] [facility] [facility] [facility]ENTER[facility] [address] [facility]N [facility]USE [facility] LIVER FUNCTION ALBUMIN [MASS/VOLU ME] IN SERUM OR PLASMA 4.2 g/dL 3.5 - 5.0 04/09 Specimen Type: SERUM No comment entered. Ordering Provider: RONNIE YEPEZ Report Released Date/Time: Apr 07, 2023 04:15 PM Reporting Lab: [facility]ENTERUSE[address] [address] Performing Lab: [place] [facility] [facility] [facility]ENTER[facility] [address] [facility] LIVER FUNCTION ALKALINE PHOSPHATAS E [ENZYMATIC ACTIVITY/V OLUME] IN SERUM OR PLASMA 63 U/L 40 - 150 04/09 Specimen Type: SERUM No comment entered. Ordering Provider: RONNIE YEPEZ Report Released Date/Time: Apr 07, 2023 04:15 PM Reporting Lab: [place] [facility]ENTER[facility] [address] Performing Lab: [place] [facility] [facility] [facility]ENTER[facility] [address] [facility] LIVER FUNCTION ASPARTATE AMINOTRANS FERASE [ENZYMATIC ACTIVITY/V OLUME] IN SERUM OR PLASMA 21 U/L 5 - 34 04/09 Specimen Type: SERUM No comment entered. Ordering Provider: RONNIE YEPEZ Report Released Date/Time: Apr 07, 2023 04:15 PM Reporting Lab: [place] [facility] [facility] [address] [facility] [address] Performing Lab: [place] [facility] [facility] [address] [facility] [address] [facility] LIVER FUNCTION ALANINE AMINOTRANS FERASE [ENZYMATIC ACTIVITY/V OLUME] IN SERUM OR PLASMA 21 U/L 04/09 Specimen Type: SERUM No comment entered. Ordering Provider: RONNIE YEPEZ Report Released Date/Time: Apr 07, 2023 04:15 PM Reporting Lab: [facility] [place] [facility] [address] [facility] [address] Performing Lab: [place] [facility] [facility] [facility] [address] [facility] [address] [facility] LIVER FUNCTION BILIRUBIN. TOTAL [MASS/VOLU ME] IN SERUM OR PLASMA 0.9 mg/dL 0.2 - 1.2 04/09 Specimen Type: SERUM No comment entered. Ordering Provider: RONNIE YEPEZ Report Released Date/Time: Apr 07, 2023 04:15 PM Reporting Lab: [facility] [place] [facility] [address] [facility] [address] Performing Lab: [place] [facility] [facility] [address] [facility] [address] [facility] Vital Signs Combined list of inpatient and outpatient Vital Signs from Department of Defense and Veterans Affairs, ranging from 12 months to all on record, depending upon the facility. Vital Sign Value Date Comments Source PAIN 0 07/21/2024 14:27:13 [place] [facility] [facility] [facility] TEMPERATURE 98.4 07/21/2024 14:27:13 [place] [facility] [place] [facility] SYSTOLIC BLOOD PRESSURE 164 07/14/19 12:40:38 [facility] DIASTOLIC BLOOD PRESSURE 88 025 12:40:38 [facility] PULSE OXIMETRY 98 07/14/2024 12:40:38 [facility] WEIGHT 229 07/14/2024 12:40:38 [facility] BMI 31 kg/m2 07/14/2024 12:40:38 [facility] PAIN 0 07/14/2024 12:40:38 [facility] HEIGHT 72 07/14/2024 12:40:38 [facility] TEMPERATURE 96.1 07/14/2024 12:40:38 [facility] PULSE 67 07/14/2024 12:40:38 [facility] RESPIRATION 18 07/14/2024 12:40:38 [facility] SYSTOLIC BLOOD PRESSURE 140 04/21/20 24 13:29:02 [facility] [place] [facility] DIASTOLIC BLOOD PRESSURE 80 024 13:29:02 [facility] [place] [facility] PULSE OXIMETRY 98 04/21/2024 13:29:02 [...] 229.7 04/18/2024 08:27:34 [facility] [place] [facility] BMI 31 kg/m2 04/18/2024 08:27:34 [facility] [place] PAIN 0 04/18/2024 08:27:34 [facility] [place] [facility] HEIGHT 72 04/18/2024 08:27:34 [facility] [...] to the last 18 months, not all [place] inpatient encounters are included; 2) Encounters from the Department of [facility] [place] facilities going backup to 280 months. Location Location Details Encounter Type Encounter Number Reason For Visit Attending Provider ADM Date DC Date Status Disposition Source [place] [facility] [facility] [place] [facility] OFFICE O/P EST LOW 20-29 MIN [id number] Diagnos is: ICD-10- CM I89.0 Lymphed milo, not elsewhe re classif ied SCOTT SANTIAGO D 05/22 [place] [facility] [facility] [place] [facility] Outpatient Encounter [id number] 06/04 [place] [facility] [place] [place] [facility] [place] [facility] OFFICE O/P EST SF 10-19 MIN [id number] Diagnos is: ICD-10- CM R60.9 Edema, unspeci fied SCOTT SANTIAGO RLENDY D 06/05 [place] [facility] [facility] OFFICE O/P NEW MOD 45-59 MIN [id number] Diagnos is: ICD-10- CM I87.2 Venous insuffi ciency (chroni c) (periph eral) TOBIAS MEEHAN MD 06/07 [facility] ORTHOTIC MGMT&TRAIN G 1ST ENC [id number] Diagnos is: ICD-10- CM R60.0 Localiz ed edema Ruddy ESTRADA ACK 06/07 [facility] Outpatient Encounter [id number] Ruddy ESTRADA ACK 06/08 [facility] OFFICE O/P EST LOW 20 MIN [id number] Diagnos is: ICD-10- CM I89.0 Lymphed milo, not elsewhe re classif ied SA JEF ALMAGUER J 07/12 [facility] Outpatient Encounter [id number] EMA BAKER 08/16 [facility] [place] [facility] OFFICE O/P EST MOD 30 MIN [id number] Diagnos is: ICD-10- CM M21.371 Foot drop, right foot SCOTT SANTIAGO D 10/01 [place] [facility] [place] [facility] Outpatient Encounter [id number] 10/03 [facility] [place] [facility] Outpatient Encounter [id number] SCOTT SANTIAGO D 11/29 [place] [facility] [place] [place] [facility] [place] [facility] Outpatient Encounter [id number] 12/10 [place] [facility] [place] [facility] [place] [facility] OFFICE O/P EST LOW 20 MIN [id number] Diagnos is: ICD-10- CM R60.0 Localiz ed edema SCOTT SANTIAGO D 12/30 [place] [facility] [place] [facility] [place] DIABETIC CUSTOM MOLDED SHOE [id number] Diagnos is: ICD-10- CM M20.40 Other hammer toe(s) (acquir ed), unspeci fied foot GALA DE LA CRUZ TT ANJUM 01/16 [facility] [place] [place] DIABETIC CUSTOM MOLDED SHOE [id number] Diagnos is: ICD-10- CM M21.371 Foot drop, right foot ROSMERYDI JUAN M 02/04 [facility] [place] [place] OFFICE O/P EST LOW 20 MIN [id number] Diagnos is: ICD-10- CM I10 Essenti al (primar y) hyperte JESSICA Fleming RD D 04/18 [facility] [place] OFFICE O/P EST MOD 30 MIN [id number] Diagnos is: ICD-10- CM I10 Essenti al (primar y) hyperte JESSICA Fleming RD 04/18 [facility] OFF/OP CONSLTJ NEW/[place] HI 55 [id number] Diagnos is: ICD-10- CM M21.371 Foot drop, right foot JOEY ZHENG 04/21 [facility] Outpatient Encounter [id number] 04/21 [facility] Outpatient Encounter [id number] 05/05 [facility] OFFICE O/P EST SF 10 MIN [id number] Diagnos is: ICD-10- CM I89.0 Lymphed milo, not elsewhe re classif ied MAXINE FAJARDO MD 07/14 [facility] ORTHOTIC MGMT&TRAIN G 1ST ENC [id number] Diagnos is: ICD-10- CM I87.2 Venous insuffi ciency (chroni c) (periph eral) SHAHID,WILL MARK 07/14 [facility] Outpatient Encounter [id number] KLEBER,WILL MARK 07/16 [facility] Outpatient Encounter [id number] 07/17 [facility] OFFICE O/P EST LOW 20 MIN [id number] Diagnos is: ICD-10- CM M21.371 Foot drop, right foot FOSTER,SCOTT RLES D 07/21 [facility] OFFICE O/P EST LOW 20 MIN [id number] Diagnos is: ICD-10- CM M21.371 Foot drop, right foot FOSTER,SCOTT RLES D 07/28 [facility] Social History Combined list of [...] of tobacco use LIFETIME NON-TOBACCO USER 04/17/2017 [facility] History of tobacco use LIFETIME NON-TOBACCO USER 04/13/2016 [facility] History of tobacco use FORMER SMOKER - <100 LIFETIME CIGARETTES 04/20/2010 [facility] History of tobacco use HISTORY OF SMOKING 08/12/2004 [facility] History of tobacco use HISTORY OF SMOKING 05/29/2003 [facility] Plan of Care List of future care activities from Department of [facility] Affairs facilities. Additional future care activities may be listed in the Assessment and Plan section. Date/Time Care Activity Care Activity Detail Facili ty 01/19/2025 AMBULATORY - MEDICINE AMBULATORY - MEDICI [facility]
== END 2024-10-28 16:42 | disposition home or self-care (01) ==
PROVIDERS: Emergency Provider Emergency Medicine; PCP Internal Medicine
DX: Z48.02 Encounter for removal of sutures (principal)
CPT/HCPCS: 99282

== ENCOUNTER 2024-11-13 08:38 | Outpatient (AMB) | payer MEDICARE, SELFPAY ==
[2024-11-13 08:46] LABS: ~PT, ~INR - Anti Coag Clinic 1.8 (0.9-1.1)
--- NOTE | 2024-11-13 08:52 | MHC.OFFVISCO ---
Intake Intake Visit Reasons: Anticoagulation Allergies doxycycline [Doxycycline] Allergy (Severe, Verified 11/13/24 08:42) HIVES lisinopril Allergy (Severe, Verified 11/13/24 08:42) RASH Medication List - Last Reconciled 11/13/24 by Roxanne Rodriguez, RN cephalexin 500 mg PO QID doxepin 3 mg PO BEDTIME PRN fluticasone propionate 50 mcg/actuation (Flonase Allergy Relief) 1 spray intranasal DAILY furosemide 20 mg PO DAILY 90 days levothyroxine 75 mcg PO QAM metoprolol succinate ER 25 mg PO DAILY simvastatin 20 mg PO BEDTIME warfarin (Juntoven) See Protocol 7.5 mg QD orally QD; 90 days warfarin (Juntoven) See Protocol 10 mg X 6-7 DAYS/ WEEK WARFARIN DOSE PER INR Nursing Note INR: 1.8?out of therapeutic range of 2-3 Medications and supplements reviewed Patient status: well Medications or supplements: no changes Diet: usual diet Denies any signs and symptoms of bleeding or clotting or unusual bruising Bleeding, bruising, clotting discussed Nutritional guidance given: continue to balance reds and greens Food list reviewed. Pt likes greens so will increase dose to Dose: 15mg today (usual 10mg) then 10mg X 6 days and 7.5mg X 1 day (Sun) F/U INR Date : 5 weeks?? Patient verbalizing understanding of instructions given. Anti-Coag Initial Assessment Social Hx Patient Tobacco Use Status: Never used Tobacco alcohol intake: current Alcohol intake frequency: holidays/special occasions only Coding Level of Care Code Est Patient Level 1 Diagnoses Current use of anticoagulant therapy Z79.01 Assessment & Plan Assessment & Plan (1) Current use of anticoagulant therapy: Code(s): Z79.01 - [facility] (current) use of anticoagulants Category: Medical
== END 2024-11-13 08:56 | disposition home or self-care (01) ==
LOC: HO.ACS 08:38
PROVIDERS: PCP Internal Medicine; Visit Provider Internal Medicine Medical Oncology
DX: Z79.01 Long term (current) use of anticoagulants (principal)

== ENCOUNTER → 2024-11-13 08:38 | Outpatient (BNVA) | payer MEDICARE, SELFPAY | PROVIDERS: PCP Internal Medicine; Visit Provider Internal Medicine Medical Oncology | DX: I48.20 Chronic atrial fibrillation, unspecified (principal); Z79.01 Long term (current) use of anticoagulants; Z51.81 Encounter for therapeutic drug level monitoring | CPT/HCPCS: 85610; 99211 ==

== ENCOUNTER 2024-12-16 08:01 | Outpatient (AMB) | payer MEDICARE, SELFPAY ==
--- OUTSIDE RECORDS SUMMARY | 2024-12-16 08:03 | XMS_ITS | Patient Health Record ---
Author Organization [facility] Address [address] [place] [address] Care Team Providers Care Director Of Instructional Technology Name Role Phone Royal Aguila MD Primary Care Provider Emre Orosco Jr Unavailable Allergies Allergen (clinical drug ingredient) Drug/Non Drug Allergy documented on EMR Reaction Allergy Type Onset Date Status doxycycline Doxycycline Unknown Drug Allergy Act mahamed Reason For Referral No Information Medications Medication SIG (Take, Route, Frequency, Duration) Notes Start Date End Date Status Colyte with Flavor Packs 240 GM As directed Orally Over the specified time. for 1 day(s) 06/23/2015 Active Simvastatin 20 MG 1 tablet in the even ing Orally Once a day Active Metoprolol Succinate ER 50 MG 1 tablet Orally BID Active Furosemide 20 MG 1 tablet Orally Once a day Active Warfarin Sodium 10 MG 1 tablet-alt 10/7. 5 Orally Once a day Active Levothyroxine Sodium 50 MCG 1 tablet Ora lly Once a day Active Lisinopril 40 MG 1 tablet Orally Once a day Active Immunizations Vaccine Route Administration Date Status Comme nts Flu vaccine no Preserv 3 and > Unknown 04/20/2015 Admin istered Problems Problem Type SNOMED Code ICD Code Onset Dates Problem Status W/U Status Risk Notes Problem 177654043 Colon cancer screening (Z12.11) Active confirmed Problem 21817450 Rectal bleeding (K62.5) Active confirmed Problem 917679022 [facility] (curre nt) use of anticoagulants (Z79.01) Active confirmed Problem 56046347 Hypertension (I10) Active confirmed Problem 797279033 Diverticulosis o f colon (without mention of hemorrhage) (K57.30) Active confirmed Plan Of Treatment Future Test Test Name Order Date COLONOSCOPY 06/23/2015 Insurance Providers Payer Name Payer Address Payer Phone Subscriber Number Group Number Insured Name Patient Relationship to Insured Coverage Start Date Coverage End Date MEDICARE OF [place] [address] [place] [id number] ILAN DUDLEY Self - patient is the insured MEDEX ATTN CLAIMS [address] [place] [address] [id number] ILAN DUDLEY Self - patient is the insured Medical (General) History Medical History History ICD Code colonoscopy 03-11-2010 colon polyps headaches hypertension atrial flutter/fibrillation hypothyroidism Surgical History Surgery Date(Month/Year) sinus surgery cardiac pacemeker 06/09/2009 thyroidectomy skin cancer removals cardiac ablation 2011
--- OUTSIDE RECORDS SUMMARY | 2024-12-16 08:03 | XMS_ITS | Patient Health Record ---
Author Organization [facility] [place] Address [address] [place] [address] Care Team Providers Care Cyber Transport Systems Specialist Name Role Phone Royal Aguila Primary Care Provider Smooth Corbett Unavailable [phone] Reason For Referral No Information Medications Medication SIG (Take, Route, Frequency, Duration) Notes Start Date End Date Status Metoprolol Succinate 50mg Active Furosemide 20mg Acti ve Simvastatin 20 MG Orally Ac tive Levothyroxine Sodium 50 MCG Orally Active Warfarin Sodium 10 MG Orally Active Social History Tobacco Use: Social History Observation Description Date Details (start date - stop date) Never Smoker NA - NA Tobacco Use/Smoking Question Answer Notes Are you a: nonsmoker Additional Findings: Tobacco Non-User Current no n-smoker Alcohol Screen Question Answer Notes Did you have a drink contain ing alcohol in the past year? Yes How often did you have a dri nk containing alcohol in the past year? 2 to 3 times a week (3 points) Points 3 Interpretation Negative Problems Problem Type SNOMED Code ICD Code Onset Dates Problem Status W/U Status Risk Notes Problem Plantar wart (95405545) Plantar wart (B07.0) Active confirmed Plan Of Treatment Pending Test Test Name Order Date [id number] Destruction, 1-14 10/17/2016 Insurance Providers Payer Name Payer Address Payer Phone Subscriber Number Group Number Insured Name Patient Relationship to Insured Coverage Start Date Coverage End Date Medicare [facility] [employer] [address] [place] [phone] [id number] Erasmo Escudero Self - patient is the insured 4 [employer] Blue Shield [address] [place] [address] [phone] [id number] KotaErasmo ulloa Self - patient is the insured 4 Medical (General) History Medical History History ICD Code Back,Hip,and Knee pain CAD (Cholesterol) Cancer Measles Mumps Chicken pox Heart disease - Pacemaker High blood pressure Thyroid Surgical History Surgery Date(Month/Year) cardiac pacemeker 2008
--- OUTSIDE RECORDS SUMMARY | 2024-12-16 08:03 | XMS_ITS | Clinical Summary ---
Author Organization [address] [place] [address] [place] [phone] Phone Care Team Providers Care Assembler Deck And Hull Name Role Phone Royal Aguila MD Primary Care Provider [phone] Allergies Active Allergy Reactions Criticality Noted Date [...] Encounters Date Type Department Care Team Description 11/21/2024 Telephone [facility] Cardiology [facility] [address] [place] [address] William Damon MD Reschedule from Last 3 Months Social History Tobacco [...] Description 02/18/2025 3:30 PM EDT Ancillary Procedure [facility] Cardiology [facility] [address] [place] [address] 04/13/2025 9:25 AM EDT Office Visit [facility] [address] [place] [address] William Damon MD [address] [place] [address] [address] [place] [address] Health Maintenance Due Date Last Done Comments [...] this topic Medical Devices Implanted Type Area Swabber Device Identifier Shelf Expiration Date Model / Serial / Lot Abbt-Stju Assurity Mri [id number] Implanted:04/2020 (Quantity not on file) Cardiac Pacemaker [facility] [facility] MRI [id number] / [id number] / Insurance MEDICARE [facility] Care Teams Assembler Deck And Hull Relationship Specialty Start Date End Date Royal Aguila MD [address] [place] [address] [address] [facility] [place] [address] PCP - General Internal Medicine 05/15/20
[2024-12-16 08:17] LABS: Prothrombin Time Whole Bld POC 32.1 sec (11.1-13.5); ~PT, ~INR - Anti Coag Clinic 2.7 (0.9-1.1)
--- NOTE | 2024-12-16 08:19 | MHC.OFFVISCO ---
Intake Intake Visit Reasons: Anticoagulation Allergies doxycycline (Doxycycline) Allergy (Severe, Verified 12/16/24 08:05) HIVES lisinopril Allergy (Severe, Verified 12/16/24 08:05) RASH Medication List - Last Reconciled 12/16/24 by Roxanne Rodriguez, RN cephalexin 500 mg PO QID doxepin 3 mg PO BEDTIME PRN fluticasone propionate 50 mcg/actuation (Flonase Allergy Relief) 1 spray intranasal DAILY furosemide 20 mg PO DAILY 90 days levothyroxine 75 mcg PO QAM metoprolol succinate ER 25 mg PO DAILY simvastatin 20 mg PO BEDTIME warfarin (Juntoven) See Protocol 7.5 mg QD orally QD; 90 days warfarin (Juntoven) See Protocol 10 mg X 6-7 DAYS/ WEEK WARFARIN DOSE PER INR Nursing Note INR: 2.7 in therapeutic range of 2-3 Medications and supplements reviewed No changes in health, diet, medications, or supplements, Denies any signs and symptoms of bleeding or bruising or clotting. Bleeding, bruising, clotting discussed Nutritional guidance given Dose: 10mg X 6 days and 7.5mg X 1 day (Sun) F/U INR: 5 weeks Patient verbalizes understanding of instructions given + Anti-Coag Initial Assessment Social Hx Patient Tobacco Use Status: Never used Tobacco alcohol intake: current Alcohol intake frequency: holidays/special occasions only Coding Level of Care Code Est Patient Level 1 Diagnoses Current use of anticoagulant therapy Z79.01 Assessment & Plan Assessment & Plan (1) Current use of anticoagulant therapy: Code(s): Z79.01 - [facility] living (current) use of anticoagulants Category: Medical
== END 2024-12-16 09:07 | disposition home or self-care (01) ==
LOC: HO.ACS 08:01
PROVIDERS: PCP Internal Medicine; Visit Provider Internal Medicine Medical Oncology
DX: Z79.01 Long term (current) use of anticoagulants (principal)

== ENCOUNTER → 2024-12-16 08:01 | Outpatient (BNVA) | payer MEDICARE, SELFPAY | PROVIDERS: PCP Internal Medicine; Visit Provider Internal Medicine Medical Oncology | DX: I48.20 Chronic atrial fibrillation, unspecified (principal); Z79.01 Long term (current) use of anticoagulants; Z51.81 Encounter for therapeutic drug level monitoring | CPT/HCPCS: 85610; 99211 ==

== ENCOUNTER 2025-01-20 08:25 | Outpatient (AMB) | payer MEDICARE, SELFPAY ==
--- OUTSIDE RECORDS SUMMARY | 2025-01-20 08:33 | XMS_ITS | Patient Health Record ---
Author Organization [facility] [place] Address [address] [place] [address] Care Team Providers Care Fiberglass Tube Molder Name Role Phone Royal Aguila Primary Care Provider Smooth Corbett Unavailable [phone] Reason For Referral No Information Medications Medication [...] W/U Status Risk Notes Problem Plantar wart (80072491) Plantar wart (B07.0) Active confirmed Plan Of Treatment Pending Test Test Name Order Date [id number] Destruction, 1-14 10/17/2016 Insurance Providers Payer Name Payer Address Payer Phone Subscriber Number Group Number Insured Name Patient Relationship to Insured Coverage Start Date Coverage End Date Medicare National [facility] [employer] [address] [place] [phone] [id number] Erasmo Escudero Self - patient is the insured 4 [employer] Blue Shield [address] [place] [address] [id number] KotaErasmo ulloa Self - patient is the insured 4 Medical (General) History Medical History History ICD Code Back,Hip,and Knee pain CAD (Cholesterol) Cancer Measles Mumps Chicken pox Heart disease - Pacemaker High blood pressure Thyroid Surgical History Surgery Date(Month/Year) cardiac pacemeker 2008
--- OUTSIDE RECORDS SUMMARY | 2025-01-20 08:33 | XMS_ITS | Patient Health Record ---
Author Organization [facility] Address [address] [place] [address] Care Team Providers Care Doctor Of Nursing Practice Name Role Phone Royal Aguila MD Primary [...] Problem Status W/U Status Risk Notes Problem [id number] Colon cancer screening (Z12.11) Active confirmed Problem 90828105 Rectal bleeding (K62.5) Active confirmed Problem 104612621 [facility] (curre nt) use of anticoagulants (Z79.01) Active confirmed Problem 84208969 Hypertension (I10) Active confirmed Problem 926222509 Diverticulosis o f colon (without mention of hemorrhage) (K57.30) Active confirmed Plan Of Treatment Future Test Test Name Order Date COLONOSCOPY 06/23/2015 Insurance Providers Payer Name Payer Address Payer Phone Subscriber Number Group Number Insured Name Patient Relationship to Insured Coverage Start Date Coverage End Date MEDICARE OF [place] [address] [place] [id number] ILAN DUDLEY Self - patient is the insured MEDEX ATTN CLAIMS [address] [place] [address] [id number] ILAN DUDLEY Self - patient is the insured Medical (General) History Medical History History ICD Code colonoscopy 03-11-2010 colon polyps headaches hypertension atrial flutter/fibrillation hypothyroidism Surgical History Surgery Date(Month/Year) sinus surgery cardiac pacemeker 06/09/2009 thyroidectomy skin cancer removals cardiac ablation 2011
--- OUTSIDE RECORDS SUMMARY | 2025-01-20 08:33 | XMS_ITS | Clinical Summary ---
Author Organization [address] [place] [address] [place] [phone] Phone Care Team Providers Care Research And Development Technician Name Role Phone Royal Aguila MD Primary Care Provider Allergies Active Allergy Reactions Criticality Noted Date [...] Type Department Care Team Description 11/21/2024 Telephone [facility] Cardiology [facility] [address] [place] [address] William Damon MD Reschedule from Last 3 [...] Description 02/18/2025 3:30 PM EDT Ancillary Procedure [facility] Cardiology [facility] [address] [place] [address] 04/13/2025 9:25 AM EDT Office Visit [facility] [address] [place] [address] William Damon MD [address] [place] [address] [address] [place] [address] Health Maintenance Due Date Last Done Comments Cholesterol Screening (Lipid Panel) 05/27/2022 Falls Risk Assessment 05/27/2022 Social Influencers of Health Screening 05/27/2022 Hypertension/CHF/CAD Annual BMP Blood Test 07/17/2023 Medicare Annual Wellness Visit 08/25/2023 08/24/2022 Depression Screening 06/18/2024 COVID-19 Vaccine ( season) 2024 04/18/2024, 04/16/2023, 03/28/2022, Additional history exists Influenza Vaccine (#1) 2025 , 04/16/2023, 04/15/2022, Additional history exists DTaP,Tdap,and Td Vaccines (5 - Td or Tdap) 04/16/2033 04/16/2023, 09/26/2016, 05/20/2013, Additional history exists Pneumococcal Vaccine: 50+ Years Completed 05/02/2018, 05/17/2015, 06/01/2014, Additional history exists Zoster Vaccines Completed 04/14/2019, 04/15/2018 RSV Immunization Adult Patients Completed 04/25/2023 HIB Vaccines Aged Out No longer eligi [...] this topic Medical Devices Implanted Type Area Health Promotion Officer Device Identifier Shelf Expiration Date Model / Serial / Lot Abbt-Stju Assurity Mri [id number] Implanted:04/2020 (Quantity not on file) Cardiac Pacemaker [facility] [facility] MRI 2272 / [id number] / Insurance MEDICARE [facility] Care Teams Research And Development Technician Relationship Specialty Start Date End Date Royal Aguila MD [address] [place] [address] [address] [facility] [place] [address] PCP - General Internal Medicine 05/15/20
[2025-01-20 08:41] LABS: Prothrombin Time Whole Bld POC 24.0 sec (11.1-13.5); ~PT, ~INR - Anti Coag Clinic 2.0 (0.9-1.1)
--- NOTE | 2025-01-20 08:44 | MHC.OFFVISCO ---
Intake Intake Visit Reasons: Anticoagulation Allergies doxycycline (Doxycycline) Allergy (Severe, Verified 01/20/25 08:37) HIVES lisinopril Allergy (Severe, Verified 01/20/25 08:37) RASH Medication List - Last Reconciled 01/20/25 by Roxanne Rodriguez, RN cephalexin 500 mg PO QID doxepin 3 mg PO BEDTIME PRN fluticasone propionate 50 mcg/actuation (Flonase Allergy Relief) 1 spray intranasal DAILY furosemide 20 mg PO DAILY 90 days levothyroxine 75 mcg PO QAM metoprolol succinate ER 25 mg PO DAILY simvastatin 20 mg PO BEDTIME warfarin (Jantoven) See Protocol 7.5 mg QD orally QD; 90 days warfarin (Jantoven) See Protocol 10 mg X 6-7 DAYS/ WEEK WARFARIN DOSE PER INR Nursing Note INR: 2.0 in therapeutic range of 2-3 Pt states he has been eating a lot of cucumbers from the garden with the peel on them. Medications and supplements reviewed No changes in health, medications, or supplements, Denies any signs and symptoms of bleeding or bruising or clotting. Bleeding, bruising, clotting discussed Nutritional guidance given to avoid greens today and to focus foods that raise the INR. 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
== END 2025-01-20 08:47 | disposition home or self-care (01) ==
LOC: HO.ACS 08:25
PROVIDERS: PCP Internal Medicine; Visit Provider Internal Medicine Medical Oncology
DX: Z79.01 Long term (current) use of anticoagulants (principal)

== ENCOUNTER → 2025-01-20 08:25 | Outpatient (BNVA) | payer MEDICARE, SELFPAY | PROVIDERS: PCP Internal Medicine; Visit Provider Internal Medicine Medical Oncology | DX: Z51.81 Encounter for therapeutic drug level monitoring (principal); Z79.01 Long term (current) use of anticoagulants | CPT/HCPCS: 85610; 99211 ==

== ENCOUNTER 2025-02-24 08:23 | Outpatient (AMB) | payer MEDICARE, SELFPAY ==
[2025-02-24 08:34] LABS: Prothrombin Time Whole Bld POC 46.6 sec (11.1-13.5); ~PT, ~INR - Anti Coag Clinic 3.9 (0.9-1.1)
--- NOTE | 2025-02-24 08:48 | MHC.OFFVISCO ---
Intake Intake Visit Reasons: Anticoagulation Allergies doxycycline (Doxycycline) Allergy (Severe, Verified 02/24/25 08:25) HIVES lisinopril Allergy (Severe, Verified 02/24/25 08:25) RASH Medication List - Last Reconciled 02/24/25 by Josefa Paerdes RN cephalexin 500 mg PO QID doxepin 3 mg PO BEDTIME PRN fluticasone propionate 50 mcg/actuation (Flonase Allergy Relief) 1 spray intranasal DAILY furosemide 20 mg PO DAILY 90 days levothyroxine 75 mcg PO QAM metoprolol succinate ER 25 mg PO DAILY simvastatin 20 mg PO BEDTIME warfarin (Juntoven) See Protocol 7.5 mg QD orally QD; 90 days warfarin (Juntoven) See Protocol 10 mg X 6-7 DAYS/ WEEK WARFARIN DOSE PER INR Nursing Note INR 3.9 out of therapeutic range- r/t to diet had Medications and supplements reviewed Patient status: hammer toe and foot drop bilat, bilat wraps for compression to tx edema, enc walker to balance and stability an to take weight off his feet Medications or supplements: no changes Diet: good - had more summer foods that raise the INR Denies any signs and symptoms of bleeding or clotting or unusual bruising Bleeding, bruising, clotting discussed Nutritional guidance given: dark greens like cooked broccoli today Dose: hold warfarin dose today- then resume usual dose 7.5mg x 1 day/ 10mg x 6 days F/U INR Date: Enc pt to come back sooner - he agreed to 4 weeks ?? Patient verbalizing understanding of instructions given. Anti-Coag Initial Assessment Social Hx Patient Tobacco Use Status: Never used Tobacco alcohol intake: current Alcohol intake frequency: holidays/special occasions only Coding Level of Care Code Est Patient Level 1 Diagnoses Current use of anticoagulant therapy Z79.01 Results AMB INR Fingerstick AMB INR Fingerstick 3.9 Last Edit by Josefa Paredes RN on 02/24/25 08:38 MANUAL ENTRY Assessment & Plan Assessment & Plan (1) Current use of anticoagulant therapy: Code(s): Z79.01 - [facility] (current) use of anticoagulants Category: Medical
--- OUTSIDE RECORDS SUMMARY | 2025-02-24 09:21 | XMS_ITS | Patient Health Record ---
Author Organization [facility] [place] Address [address] [place] [address] Care Team Providers Care Wrapper Caser Name Role Phone Royal Aguila Primary Care Provider Smooth Corbett Unavailable [phone] Reason For Referral No Information Medications Medication [...] W/U Status Risk Notes Problem Plantar wart (33296506) Plantar wart (B07.0) Active confirmed Plan Of Treatment Pending Test Test Name Order Date [id number] Destruction, 1-14 10/17/2016 Insurance Providers Payer Name Payer Address Payer Phone Subscriber Number Group Number Insured Name Patient Relationship to Insured Coverage Start Date Coverage End Date Medicare [facility] [employer] [address] [place] [phone] [id number] Erasmo Escudero Self - patient is the insured 4 [employer] Blue [employer] [address] [place] [address] [id number] GratzErasmo ulloa Self - patient is the insured 4 Medical (General) History Medical History History ICD Code Back,Hip,and Knee pain CAD (Cholesterol) Cancer Measles Mumps Chicken pox Heart disease - Pacemaker High blood pressure Thyroid Surgical History Surgery Date(Month/Year) cardiac pacemeker 2008
--- OUTSIDE RECORDS SUMMARY | 2025-02-24 09:22 | XMS_ITS | Patient Health Record ---
Author Organization [facility] Address [address] [place] [address] Care Team Providers Care Imaging Technologist Name Role Phone Royal Aguila MD Primary [...] Problem Status W/U Status Risk Notes Problem 044840436 Colon cancer screening (Z12.11) Active confirmed Problem 59764334 Rectal bleeding (K62.5) Active confirmed Problem 693142376 [facility] (curre nt) use of anticoagulants (Z79.01) Active confirmed Problem 83097620 Hypertension (I10) Active confirmed Problem 180123074 Diverticulosis o f colon (without mention of hemorrhage) (K57.30) Active confirmed Plan Of Treatment Future Test Test Name Order Date COLONOSCOPY 06/23/2015 Insurance Providers Payer Name Payer Address Payer Phone Subscriber Number Group Number Insured Name Patient Relationship to Insured Coverage Start Date Coverage End Date MEDICARE OF [place] [address] [place] [id number] ILAN DUDLEY Self - patient is the insured MEDEX ATTN CLAIMS [address] [place] [address] [id number] ILAN DUDLEY Self - patient is the insured Medical (General) History Medical History History ICD Code colonoscopy 03-11-2010 colon polyps headaches hypertension atrial flutter/fibrillation hypothyroidism Surgical History Surgery Date(Month/Year) sinus surgery cardiac pacemeker 06/09/2009 thyroidectomy skin cancer removals cardiac ablation 2011
--- OUTSIDE RECORDS SUMMARY | 2025-02-24 09:22 | XMS_ITS | Clinical Summary ---
Author Organization [address] [place] [address] [place] [phone] Phone Care Team Providers Care Missile Inspector Preflight Name Role Phone Royal Aguila MD Primary Care Provider [phone] Allergies Active Allergy Reactions Criticality Noted Date [...] Encounters Date Type Department Care Team Description 02/18/2025 3:30 PM EDT Ancillary Procedure [facility] [address] [facility] [address] [place] [phone] Encounter for adjustment or management of cardiac [...] Care Team (Late st Contact Info) Description 04/13/2025 9:25 AM EDT Office Visit [facility] Card[facility] [address] [place] [phone] William Damon MD [address] [place] [address] [place] [phone] 09/07/2025 1:00 PM EDT Ancillary Procedure [facility] [address] [place] [address] Health Maintenance Due Date Last Done Comments Cholesterol Screening (Lipid Panel) 05/27/2022 Falls Risk Assessment 05/27/2022 Social Influencers of Health Screening 05/27/2022 Hypertension/CHF/CAD Annual BMP Blood Test 07/17/2023 Medicare Annual Wellness Visit 08/25/2023 08/24/2022 Depression Screening 06/18/2024 COVID-19 Vaccine (7 - Moderna risk season) 2025 04/18/2024, 04/16/2023, 03/28/2022, Additional history exists Influenza Vaccine (#1) 2025 , 04/16/2023, 04/15/2022, Additional history exists DTaP,Tdap,and Td Vaccines (6 - Td or Tdap) 10/18/2034 10/18/2024, 04/16/2023, 09/26/2016, Additional history exists Pneumococcal Vaccine: 50+ Years [...] this topic Medical Devices Implanted Type Area Molasses Preparer Device Identifier Shelf Expiration Date Model / Serial / Lot Peterson Assafia Mri [id number] Implanted:04/2020 (Quantity not on file) Cardiac Pacemaker [facility] MRI 2272 / [id number] / Procedures Procedure Name Priority Date/Time Associated Diagnosis Comments CARDIAC DEVICE CHECK- IN CLINIC- MURJ Routine 02/18/2025 3:43 PM EDT Encounter for adjustment or management of cardiac device from Last 3 Months Results * CARDIAC DEVICE CHECK- IN CLINIC- MURJ (02/18/2025 3:43 PM EDT) Date Time Interrogation Session [id number] CV DEVICE CHECK Implantable Pulse Generator Molasses Preparer [employer] CV DEVICE CHECK Implantable Pulse Generator Type IPG CV DEVICE CHECK Implantable Pulse Generator Model Assurity MRI 2272 CV DEVICE CHECK Implantable Pulse Generator Serial Number [id number] CV DEVICE CHECK Implantable Pulse Generator Implant Date 20200528 CV DEVICE CHECK Battery Voltage 3.010 CV D EVICE CHECK Battery Status Middle of Service CV DEVICE CHECK Kristopher Statistic RV Percent Paced 89.00 CV DEVICE CHECK Lead Channel Sensing Intrinsic Amplitude 10.100 CV DEVICE CHECK Lead Channel Setting Sensing Sensitivity 2.00 CV DEVICE CHECK Lead Channel Impedance Value 375 CV DEVICE CHECK Lead Channel Pacing Threshold Amplitude 0.750 CV DEVICE CHECK Lead Channel Pacing Threshold Pulse Width 0.5 CV DEVICE CHECK Lead Channel RV Pacing Threshold Date 2025-02-18 CV DEVICE CHECK Lead Channel Setting Pacing Amplitude 1.000 CV DEVICE CHECK Lead Channel Setting Pacing Pulse Width 0.5 CV DEVICE CHECK Kristopher Setting Mode (NBG Code) VVIR CV DEVICE CHECK Kristopher Setting Lower Rate Limit 65 CV DEVICE CHECK Kristopher Setting Maximum Sensor Rate 115 CV DEVICE CHECK Date of Service 2025-08-12 CV DEVICE CHECK Anatomical Region Laterality Modality Device Interroga tion 02/18/2025 Impressions 02/23/2025 9:47 AM EDT Normal In-Office: No Events * Normal Device Function * Alerts or events: 1 HVR alert, EGM suggestive of brief ventricular noise, not reproducible today in office. Occurred back in August 2024, no episodes since this occurrence, will continue to monitor. * Battery: MOS, 6.80 yrs * Sensing, impedance and thresholds reviewed and tested * Presenting Rhythm: AF BAG SEALER 60s * Underlying Rhythm: AF VS 40 bpm * Heart Rate Histograms reviewed * Pacing and Detection Parameters were evaluated Narrative Procedure Note William Damon MD - 02/23/2025 IMPRESSION: Normal In-Office: No Events * Normal Device Function * Alerts or events: 1 HVR alert, EGM suggestive of brief ventricularnoise, not reproducible today in office. Occurred back in August 2024, noepisodes since this occurrence, will continue to monitor. * Battery: MOS, 6.80 yrs * Sensing, impedance and thresholds reviewed and tested * Presenting Rhythm: AF BAG SEALER 60s * Underlying Rhythm: AF VS 40 bpm * Heart Rate Histograms reviewed * Pacing and Detection Parameters were evaluated us Order Referral Cardiovascular CV IMPLANTABLE CAR DIAC DEVICE PROCEDURES Final Result from Last 3 Months Insurance MEDICARE [facility] Care Teams Missile Inspector Preflight Relationship Specialty Start Date End Date Royal Aguila MD [address] [place] [address] Dr [address] [facility] [place] [address] PCP - General Internal Medicine 05/15/20
== END 2025-02-24 08:53 | disposition home or self-care (01) ==
LOC: HO.ACS 08:23
PROVIDERS: PCP Internal Medicine; Visit Provider Internal Medicine Medical Oncology
DX: Z79.01 Long term (current) use of anticoagulants (principal)

== ENCOUNTER → 2025-02-24 08:23 | Outpatient (BNVA) | payer MEDICARE, SELFPAY | PROVIDERS: PCP Internal Medicine; Visit Provider Internal Medicine Medical Oncology | DX: Z51.81 Encounter for therapeutic drug level monitoring (principal); Z79.01 Long term (current) use of anticoagulants | CPT/HCPCS: 85610; 99211 ==

== ENCOUNTER 2025-03-27 13:55 | Outpatient (AMB) | payer MEDICARE, SELFPAY ==
[2025-03-27 14:11] LABS: Prothrombin Time Whole Bld POC 20.4 sec (11.1-13.5); ~PT, ~INR - Anti Coag Clinic 1.7 (0.9-1.1)
--- NOTE | 2025-03-27 14:18 | MHC.OFFVISCO ---
Intake Intake Visit Reasons: Anticoagulation Allergies doxycycline (Doxycycline) Allergy (Severe, Verified 03/27/25 14:06) HIVES lisinopril Allergy (Severe, Verified 03/27/25 14:06) RASH Medication List - Last Reconciled 03/27/25 by Nahed Callejas RN cephalexin 500 mg PO QID doxepin 3 mg PO BEDTIME PRN fluticasone propionate 50 mcg/actuation (Flonase Allergy Relief) 1 spray intranasal DAILY furosemide 20 mg PO DAILY 90 days levothyroxine 75 mcg PO QAM metoprolol succinate ER 25 mg PO DAILY simvastatin 20 mg PO BEDTIME warfarin (Juntoven) See Protocol 7.5 mg QD orally QD; 90 days warfarin (Juntoven) See Protocol 10 mg X 6-7 DAYS/ WEEK WARFARIN DOSE PER INR Nursing Note NO MISSED DOSES,CP,SOB,DIET/MED CHANGES,FALLS OR SX OF BLEEDING. BOOST WARFARIN TO 15MGM TODAY THEN RESUME USUAL DOSING AND FOLLOW-UP IN 2 WEEKS GOOD UNDERSTANDING OF DOSING INSTR. 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
== END 2025-03-27 14:26 | disposition home or self-care (01) ==
LOC: HO.ACS 13:55
PROVIDERS: PCP Internal Medicine; Visit Provider Internal Medicine Medical Oncology
DX: Z79.01 Long term (current) use of anticoagulants (principal)

== ENCOUNTER → 2025-03-27 13:55 | Outpatient (BNVA) | payer MEDICARE, SELFPAY | PROVIDERS: PCP Internal Medicine; Visit Provider Internal Medicine Medical Oncology | DX: Z51.81 Encounter for therapeutic drug level monitoring (principal); Z79.01 Long term (current) use of anticoagulants | CPT/HCPCS: 85610; 99211 ==

== ENCOUNTER 2025-04-03 08:26 | Outpatient (AMB) | payer MEDICARE, SELFPAY ==
[2025-04-03 08:39] VITALS: BP 142/76; PULSE 65; RESP 18; TEMP 36.1; O2SAT 96; BMI 36.5
--- NOTE | 2025-04-03 08:39 | A.OFFPC_ITS ---
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: No Accompanied by: Self / Same As Patient Allergies doxycycline (Doxycycline) Allergy (Severe, Verified 04/03/25 08:39) HIVES lisinopril Allergy (Severe, Verified 04/03/25 08:39) RASH Medication List - Last Reconciled 04/03/25 by Royal Aguila MD furosemide 20 mg PO DAILY 90 days levothyroxine 75 mcg PO QAM metoprolol succinate ER 25 mg PO DAILY simvastatin 20 mg PO BEDTIME warfarin (Jantoven) See Protocol 7.5 mg QD orally QD; 90 days warfarin (Jantoven) See Protocol 10 mg X 6-7 DAYS/ WEEK WARFARIN DOSE PER INR Tobacco use date assessed: 04/03/25 Fall risk assessment: 1 Fall in past year Last assessed Fall Risk: 04/03/25 Dental Screening Dental Screen Date: 04/03/25 Did you have a dental visit in the last 12 months?: No Did you have a dental problem in the last 6 months where you did not have access to dental care?: No Was dental information given to patient?: No PFSH Medical History Insomnia COVID-19 virus infection Hyperparathyroidism Basal cell carcinoma of skin Tubular adenoma of colon Sick sinus syndrome Hypercholesterolemia Hypothyroid Atrial fibrillation Monoclonal paraproteinemia Hypertension Surgical History History of parathyroidectomy Family History Father Past heart attack Social History Housing: House Alcohol intake: current Alcohol intake frequency: holidays/special occasions only Alcohol type: wine Patient Tobacco Use Status: Never used Tobacco e-Cigarette/Vaping Use: Never Used Second Hand Smoke Exposure: No service: Yes Current occupational status: retired Current occupational exposures/hazards: No Cognitive needs: No Hearing needs: No Vision needs: Yes Questionnaire PHQ-9 Over the last 2 weeks, how often have you been bothered by any of the following problems? 1. Little interest or pleasure in doing things: not at all 2. Feeling down, depressed, or hopeless: not at all 3. Trouble falling or staying asleep, or sleeping too much: more than half the days 4. Feeling tired or having little energy: several days 5. Poor appetite or overeating: not at all 6. Feeling bad about yourself - or that you are a failure or have let yourself o r your family down: not at all 7. Trouble concentrating on things, such as reading the newspaper or watching television: not at all 8. Moving or speaking so slowly that other people could have noticed. Or the opposite - being so fidgety or restless that you have been moving around a lot more than usual: not at all 9. Thoughts that you would be better off or of hurting yourself in some way: not at all Total score: 3 Source: Developed by Drs. Ranjit Hancock, Nancy Rosales, Franki Ribera and colleagues, with an educational fawad from [employer] Thrive Questionnaire Date Thrive assessed: 10/02/24 I am a: Patient What is your living situation today?: I have a steady place to live Within the past 12 months, did the food you bought not last and you didn't have the money to get more?: I choose not to answer this question Within the past 12 months, did you worry whether your food would run out before you got money to buy more?: I choose not to answer this question Do you have trouble paying for medicines?: No Do you have trouble getting transportation to medical appointments?: No Do you have trouble paying your heating and electricity bill?: No Do you have trouble taking care of your child, family member or friend?: No Do you have trouble with day-to-day activities such as bathing, preparing meals, shopping, managing finances, etc.?: No Are you currently unemployed and looking for a job?: I choose not to answer this question Are you interested in more education?: No Please select the resources that you would like help with: None Currently or been in a relationship where the following occur: I choose not to answer THRIVE Score: 0 AUDIT C Alcohol Use Questionnaire (AUDIT-C) 1. How often do you have a drink containing alcohol?: Never Total Score: 0 YAMEL-7 AMB Questionnaire YAMEL-7 Date YAMEL - 7 assessed: 10/02/24 Feeling nervous, anxious, or on edge: 0 = Not at all Not being able to stop or control worryin = Not at all Worrying too much about different things: 0 = Not at all Trouble relaxin = Not at all Being so restless that it is hard to sit still: 0 = Not at all Becoming easily annoyed or irritable: 0 = Not at all Feeling afraid as if something awful might happen: 0 = Not at all Total YAMEL-7 score (0-4 normal; 5-9 mild; 10-14 moderate; 15-21 severe): 0 Source: Developed by Drs. Ranjit Hancock, Nancy Rosales, Franki Ribera and colleagues, with an educational fawad from [employer] Physical exam (Primary Care) Vital Signs: Last Vital Signs Temp 96.9 F 04/03/25 08:39 Pulse 65 04/03/25 08:39 Resp 18 04/03/25 08:39 BP 142/76 H 04/03/25 08:39 Pulse Ox 96 04/03/25 08:39 Oxygen Delivery Method Room Air 04/03/25 08:39 BMI result Body Mass Index 36.5 Tobacco/Smoking Status: Tobacco use Status Tobacco use date assessed 04/03/25 04/03/25 08:48 Patient Tobacco Use Status Never used Tobacco 04/03/25 08:48 e-Cigarette/Vaping Use Never Used 04/03/25 08:48 PHQ-9: PHQ-9 Score PHQ-9: Total score 3 04/03/25 09:14 Thrive Assessment: Date of Thrive Assessment Date Thrive assessed 10/02/24 04/03/25 08:48 Currently or been in a relationship where the following occur: I choose not to answer Const General: alert; No acute distress Eyes Conjunctivae: conjunctivae normal Resp Auscultation: clear to auscultation bilaterally Cardio Rate: regular rate Rhythm: regular rhythm GI Inspection: Yes normal to inspection Extrem General: Yes normal to inspection and No edema Coding Level of Care Code Est Pt Level 4 (94817) Complex EM visit Add On G2211 Diagnoses Paroxysmal atrial fibrillation I48.0 Atrial fibrillation type: paroxysmal Sick sinus syndrome I49.5 Hypercholesterolemia E78.00 Essential hypertension I10 Hypertension type: essential hypertension Acquired hypothyroidism E03.9 Hypothyroidism type: acquired Dysphagia R13.10 Assessment & Plan Assessment & Plan (1) Atrial fibrillation: Comment: Pulmonary vein isolation, ablation, Echo global hypokinesis 45-50% ejection fraction aorta 4 cm Code(s): I48.91 - Unspecified atrial fibrillation Category: Medical Qualifiers: Atrial fibrillation type: paroxysmal Qualified Code(s): I48.0 - Paroxysmal atrial fibrillation Plan: Patient on anticoagulation and will need blood work (2) Sick sinus syndrome: Comment: 2008, dual-chamber pacemaker Dr. Damon, pacemaker placement May 2020 Code(s): I49.5 - Sick sinus syndrome Category: Medical Plan: Continue with the pacemaker and sees Cardiology for device check (3) Hypercholesterolemia: Comment: 2003 Code(s): E78.00 - Pure hypercholesterolemia, unspecified Category: Medical Plan: Avoid fried foods, chicken skin, eggs, butter margarine, pastries and meat. Be it pork or beef they have a lot of cholesterol on simvastatin patient needs blood work (4) Hypertension: Code(s): I10 - Essential (primary) hypertension Category: Medical Qualifiers: Hypertension type: essential hypertension Qualified Code(s): I10 - Essential (primary) hypertension Plan: Continue with blood pressure medication. Decrease salt intake and exercise on metoprolol 25 mg once a day (5) Hypothyroid: Code(s): E03.9 - Hypothyroidism, unspecified Category: Medical Qualifiers: Hypothyroidism type: acquired Qualified Code(s): E03.9 - Hypothyroidism, unspecified Plan: Continue with thyroid medication will need blood work (6) Dysphagia: Code(s): R13.10 - Dysphagia, unspecified Category: Medical Plan History of Present Illness The patient is an 84-year-old male presenting for a follow-up visit. The patient has a history of hypertension, atrial fibrillation, hypothyroidism, hypercholesterolemia, and sick sinus syndrome. He has a pacemaker due to sick sinus syndrome and follows up regularly with cardiology for device checks. In February 2022, a dilatation order was sent, but results were normal at that time. He was last seen in February 2023 for a follow-up visit. The patient has a history of congestive heart failure with preserved ejection fraction and a compression fracture. 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 The patient reports engaging in regular exercise at the [facility] and performing physical activities such as chopping wood. He follows a modified diet as recommended by a speech therapist to manage swallowing difficulties. The patient has been on anticoagulation therapy and requires regular blood work monitoring. He is currently on medications including furosemide, levothyroxine, metoprolol, simvastatin, and warfarin. Preventative care measures include colon cancer screening last done in 2015 and regular dermatology follow-ups. He has received vaccinations for flu, shingles, tetanus, RSV, and pneumonia. Health Maintenance - Colon cancer screening last performed in 2015 - Regular dermatology follow-ups - Vaccinations: flu, shingles, tetanus, RSV, pneumonia Social History - Exercise: Engages in regular exercise at the [facility], including using machines and chopping wood. - Diet: Follows a modified diet as recommended by a speech therapist to manage swallowing difficulties. Review of Systems - Cardiovascular: Denies chest pain, reports hypertension managed with medication. - Respiratory: Denies dyspnea or cough. - Gastrointestinal: Reports swallowing difficulties, denies constipation or liza k stools. - Genitourinary: Reports nocturia, denies dysuria. - Neurological: Denies dizziness or balance issues. - Musculoskeletal: Reports regular physical activity, denies joint pain. - Dermatological: Reports benign nevi and dyschromia. Physical Exam Results - Labs: April 2022 showed very mild anemia, renal function with creatinine of 1.0, blood sugar of 102, cholesterol with LDL of 72. - Tests: Barium swallow on January 15 showed transient laryngeal penetration, no aspiration. 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 Plan Patient was informed and verbally consented to the use of an ambient scribe for clinic note documentation during this visit. 1. Hypertension The patient is currently on metoprolol 25 mg once a day for hypertension management. Due to elevated blood pressure readings, the dosage will be increased to 50 mg once a day to achieve better control. 2. Atrial Fibrillation The patient is on anticoagulation therapy with warfarin and requires regular blood work monitoring. 3. Hypothyroidism The patient is on levothyroxine 75 mcg daily, and it is advised to take it separately from other medications and food to ensure proper absorption. A thyroid function test is planned in six weeks to two months to assess the current status. 4. Hypercholesterolemia The patient is on simvastatin 20 mg daily for cholesterol management. Regular blood work is required to monitor cholesterol levels. 5. Sick Sinus Syndrome The patient has a pacemaker and follows up with cardiology for device checks. 6. Congestive Heart Failure With Preserved Ejection Fraction The patient is managed with furosemide 20 mg once a day and regular cardiology follow-ups are recommended. 7. Compression Fracture The patient has a history of compression fracture, and management includes regular monitoring and follow-up care. 8. Transient Laryngeal Penetration The patient follows a modified diet as recommended by a speech therapist to manage swallowing difficulties. 9. 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 10. Very Mild Anemia The patient has very mild anemia noted in April 2022, requiring regular monitoring of blood counts. Discussion Notes During the visit, we discussed the management of hypertension, including increasing the metoprolol dosage to 50 mg daily to better control blood pressure. We also reviewed the importance of taking levothyroxine separately from other medications and food to ensure proper absorption, with a follow-up thyroid function test planned in six weeks to two months. The patient was advised to continue regular exercise and follow a modified diet to manage swallowing difficulties. We discussed the risks associated with sleeping medications, particularly due to the patient's anticoagulation therapy, and decided to try doxepin with caution. Patient Instructions - Take metoprolol 50 mg once a day as prescribed. - Take levothyroxine separately from other medications and food, with at least a two-hour gap. - Continue regular exercise and follow the modified diet as recommended by the speech therapist. - Monitor blood pressure regularly and report any significant changes. - Be cautious with sleeping medications and report any side effects. - Schedule a follow-up thyroid function test in six weeks to two months. Orders: Orders Thyroid Stimulating Hormone 6 Weeks E03.9 - Hypothyroidism, unspecified Free T4 (Free Thyroxine) 6 Weeks E03.9 - Hypothyroidism, unspecified Medications: New doxepin (Silenor) 3 mg PO BEDTIME PRN 30 tabs 0RF sleep G47.00 - Insomnia, unspecified Changed From metoprolol succinate ER 25 mg PO DAILY 90 tabs 0RF E03.9 - Hypothyroidism, unspecified To metoprolol succinate ER 50 mg PO DAILY 90 tabs 2RF E03.9 - Hypothyroidism, unspecified
--- OUTSIDE RECORDS SUMMARY | 2025-04-03 08:46 | XMS_ITS | Clinical Summary ---
Author Organization [address] [place] [address] [place] [phone] Phone Care Team Providers Care Development Educator Name Role Phone Royal Aguila MD Primary Care Provider [phone] Allergies Active Allergy Reactions Criticality Noted Date [...] Description 02/18/2025 3:30 PM EDT Ancillary Procedure [facility] Cardiology [facility] [address] [place] [address] Encounter for adjustment or management of cardiac [...] Description 04/13/2025 9:25 AM EDT Office Visit [facility] Card[facility] [address] [place] [address] William Damon MD [address] [place] [address] 09/07/2025 1:00 PM EDT Ancillary Procedure [facility] [address] [place] [address] Health Maintenance Due Date Last Done Comments Cholesterol Screening (Lipid Panel) 05/27/2022 Falls Risk Assessment 05/27/2022 Social Influencers of Health Screening 05/27/2022 Medicare Annual Wellness Visit 08/25/2023 08/24/2022 Depression Screening 06/18/2024 COVID-19 Vaccine (7 - Moderna risk season) 2025 04/18/2024, 04/16/2023, 03/28/2022, Additional history exists Influenza Vaccine (#1) 2025 , 04/16/2023, 04/15/2022, Additional history exists Hypertension/CHF/CAD Annual BMP Blood Test 02/18/2025 DTaP,Tdap,and Td Vaccines (6 - Td or [...] this topic Medical Devices Implanted Type Area Registered Nurse Fetal Device Identifier Shelf Expiration Date Model / Serial / Lot Peterson Assurity Mri [id number] Implanted:04/2020 (Quantity not on file) Cardiac Pacemaker [facility] MRI 2272 / [id number] / Procedures Procedure Name Priority Date/Time Associated Diagnosis Comments CARDIAC DEVICE CHECK- IN CLINIC- MURJ Routine 02/18/2025 3:43 PM EDT Encounter for adjustment or management of cardiac device from Last 3 Months Results * CARDIAC DEVICE CHECK- IN CLINIC- MURJ (02/18/2025 3:43 PM EDT) Date Time Interrogation Session [id number] CV DEVICE CHECK Implantable Pulse Generator Registered Nurse Fetal [employer] CV DEVICE CHECK Implantable Pulse Generator Type IPG CV DEVICE CHECK Implantable Pulse Generator Model Assurity MRI 2272 CV DEVICE CHECK Implantable Pulse Generator Serial Number [id number] CV DEVICE CHECK Implantable Pulse Generator Implant [...] reviewed and tested * Presenting Rhythm: AF MANAGER PARK 60s * Underlying Rhythm: AF VS 40 [...] reviewed and tested * Presenting Rhythm: AF MANAGER PARK 60s * Underlying Rhythm: AF VS 40 bpm * Heart Rate Histograms reviewed * Pacing and Detection Parameters were evaluated us Order Referral Cardiovascular CV IMPLANTABLE CAR DIAC DEVICE PROCEDURES Final Result from Last 3 Months Insurance MEDICARE [facility] Care Teams Development Educator Relationship Specialty Start Date End Date Royal Aguila MD [address] [place] [address] [address] [facility] In Internal Medicine [place], [place] [id number] PCP - General Internal Medicine 05/15/20
--- OUTSIDE RECORDS SUMMARY | 2025-04-03 08:46 | XMS_ITS | Patient Health Record ---
Author Organization [facility] Address [address] [place] [address] Care Team Providers Care Biopharmaceutical Rep Name Role Phone Royal Aguila MD Primary Care Provider Emre Orosco Jr Unavailable [phone] Allergies Allergen (clinical drug ingredient) Drug/Non Drug Allergy documented on EMR Reaction Allergy Type Onset Date Status doxycycline Doxycycline Unknown Drug Allergy Act mahamed Reason For Referral No Information Medications Medication SIG (Take, Route, Frequency, Duration) Notes Start Date End Date Status Colyte with Flavor Packs 240 GM As directed Orally Over the specified time.; Duration: 1 day(s) 06/23/2015 Active Simvastatin 20 MG [...] Problem Status W/U Status Risk Notes Problem Colon cancer screening (433693771) Colon cancer screening (Z12.11) Active confirmed Problem Rectal bleeding (06245147) Rectal bleeding (K62.5) Active confirmed Problem Long-term current use of anticoagulant (027877449) 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 (Z79.01) Active confirmed Problem Hypertension (06261671) Hypertension (I10) Active confirmed Problem Diverticulosis of colon (finding) (134619450) Diverticulosis of colon (without mention of hemorrhage) (K57.30) Active confirmed Plan Of Treatment Future Test Test Name Order Date COLONOSCOPY 06/23/2015 Insurance Providers Payer Name Payer Address Payer Phone Subscriber Number Group Number Insured Name Patient Relationship to Insured Coverage Start Date Coverage End Date MEDICARE OF [place] [address] [place] [id number] ILAN DUDLEY Self - patient is the insured MEDEX ATTN CLAIMS [address] [place] [address] [phone] [id number] ILAN DUDLEY Self - patient is the insured Medical (General) History Medical History History ICD Code colonoscopy 03-11-2010 colon polyps headaches hypertension atrial flutter/fibrillation hypothyroidism Surgical History Surgery Date(Month/Year) sinus surgery cardiac pacemeker 06/09/2009 thyroidectomy skin cancer removals cardiac ablation 2011
--- OUTSIDE RECORDS SUMMARY | 2025-04-03 08:46 | XMS_ITS | Patient Health Record ---
Author Organization [facility] [place] Address [address] [place] [address] Care Team Providers Care Domestic Violence Counselor Name Role Phone Royal Aguila Primary Care Provider Smooth Corbett Unavailable [phone] Reason For Referral No Information Medications Medication [...] W/U Status Risk Notes Problem Plantar wart (92757386) Plantar wart (B07.0) Active confirmed Plan Of Treatment Pending Test Test Name Order Date 51875-Fzed Destruction, 1-14 10/17/2016 Insurance Providers Payer Name Payer Address Payer Phone Subscriber Number Group Number Insured Name Patient Relationship to Insured Coverage Start Date Coverage End Date Medicare [facility] [employer] [address] [place] [phone] [id number] Erasmo Escudero Self - patient is the insured 4 Medex Blue Shield [address] [place] [address] [id number] LattimoreErasmo ulloa Self - patient is the insured 4 Medical (General) History Medical History History ICD Code Back,Hip,and Knee pain CAD (Cholesterol) Cancer Measles Mumps Chicken pox Heart disease - Pacemaker High blood pressure Thyroid Surgical History Surgery Date(Month/Year) cardiac pacemeker 2008
== END 2025-04-03 09:32 | disposition home or self-care (01) ==
LOC: HO.HMCH 08:27
PROVIDERS: PCP Internal Medicine; Visit Provider Internal Medicine
DX: I48.0 Paroxysmal atrial fibrillation (principal); I49.5 Sick sinus syndrome; E78.00 Pure hypercholesterolemia, unspecified; I10 Essential (primary) hypertension; E03.9 Hypothyroidism, unspecified; R13.10 Dysphagia, unspecified

== ENCOUNTER → 2025-04-03 08:26 | Outpatient (BNVA) | payer MEDICARE, SELFPAY | PROVIDERS: PCP Internal Medicine; Visit Provider Internal Medicine | DX: I48.0 Paroxysmal atrial fibrillation (principal); I49.5 Sick sinus syndrome; E78.00 Pure hypercholesterolemia, unspecified; E03.9 Hypothyroidism, unspecified; R13.10 Dysphagia, unspecified; I11.0 Hypertensive heart disease with heart failure; I50.9 Heart failure, unspecified; D64.9 Anemia, unspecified; Z87.19 Personal history of other diseases of the digestive system | CPT/HCPCS: 96127; 99212 ==

== ENCOUNTER 2025-04-21 08:24 | Outpatient (AMB) | payer MEDICARE, SELFPAY ==
[2025-04-21 08:32] LABS: Prothrombin Time Whole Bld POC 26.4 sec (11.1-13.5); ~PT, ~INR - Anti Coag Clinic 2.2 (0.9-1.1)
--- NOTE | 2025-04-21 08:36 | MHC.OFFVISCO ---
Intake Intake Visit Reasons: Anticoagulation Allergies doxycycline (Doxycycline) Allergy (Severe, Verified 04/21/25 08:27) HIVES lisinopril Allergy (Severe, Verified 04/21/25 08:27) RASH Medication List - Last Reconciled 04/21/25 by Roxanne Rodriguez, RN doxepin (Silenor) 3 mg PO BEDTIME PRN furosemide 20 mg PO DAILY 90 days levothyroxine 75 mcg PO QAM metoprolol succinate ER 50 mg PO DAILY simvastatin 20 mg PO BEDTIME warfarin (Juntoven) See Protocol 7.5 mg QD orally QD; 90 days warfarin (Juntoven) See Protocol 10 mg X 6-7 DAYS/ WEEK WARFARIN DOSE PER INR Nursing Note INR: 2.2 in therapeutic range of 2-3 Previously 1.7 and dose was increased that day from 10mg to 15mg Medications and supplements reviewed No changes in health, diet, medications, or supplements, Denies any signs and symptoms of bleeding or bruising or clotting. Bleeding, bruising, clotting discussed Nutritional guidance given Dose: weekly dose increased by 2.5mg. Pt will take 10mg daily. 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
--- OUTSIDE RECORDS SUMMARY | 2025-04-21 08:43 | XMS_ITS | Patient Health Record ---
Author Organization [facility] [place] Address [address] [place] [address] Care Team Providers Care Supervisor Rice Milling Name Role Phone Royal Aguila Primary Care Provider Smooth Corbett Unavailable [phone] Reason For Referral No Information Medications Medication [...] W/U Status Risk Notes Problem Plantar wart (67670166) Plantar wart (B07.0) Active confirmed Plan Of Treatment Pending Test Test Name Order Date 22009-Ykka Destruction, 1-14 10/17/2016 Insurance Providers Payer Name Payer Address Payer Phone Subscriber Number Group Number Insured Name Patient Relationship to Insured Coverage Start Date Coverage End Date Medicare [facility] [employer] [address] [place] [phone] [id number] Erasmo Escudero Self - patient is the insured 4 [employer] Blue Shield [address] [place] [address] [id number] [place]est[place]Erasmo ulloa Self - patient is the insured 4 Medical (General) History Medical History History ICD Code Back,Hip,and Knee pain CAD (Cholesterol) Cancer Measles Mumps Chicken pox Heart disease - Pacemaker High blood pressure Thyroid Surgical History Surgery Date(Month/Year) cardiac pacemeker 2008
--- OUTSIDE RECORDS SUMMARY | 2025-04-21 08:43 | XMS_ITS | Patient Health Record ---
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 (Z79.01) Active confirmed Problem Hypertension (80817623) Hypertension (I10) Active confirmed Problem Diverticulosis of colon (finding) (898346032) Diverticulosis of colon (without mention of hemorrhage) (K57.30) Active confirmed Plan Of Treatment Future Test Test Name Order Date COLONOSCOPY 06/23/2015 Insurance Providers Payer Name Payer Address Payer Phone Subscriber Number Group Number Insured Name Patient Relationship to Insured Coverage Start Date Coverage End Date MEDICARE OF [place] [address] [place] [id number] ILAN DUDLEY Self - patient is the insured MEDEX ATTN CLAIMS [address] [place] [address] [id number] ILAN DUDLEY Self - patient is the insured Medical (General) History Medical History History ICD Code colonoscopy 03-11-2010 colon polyps headaches hypertension atrial flutter/fibrillation hypothyroidism Surgical History Surgery Date(Month/Year) sinus surgery cardiac pacemeker 06/09/2009 thyroidectomy skin cancer removals cardiac ablation 2011
--- OUTSIDE RECORDS SUMMARY | 2025-04-21 08:43 | XMS_ITS | Clinical Summary ---
Author Organization [address] [place] [address] [place] [address] Phone Care Team Providers Care Stemhole Borer And Topper Name Role Phone Royal Aguila MD Primary Care Provider [phone] Allergies Active Allergy Reactions Criticality Noted Date Comments Amoxicillin Rash 05/29/2003 Aspirin GI intolerance 07/15/2009 Calcium Rash 05/29/2003 Doxycycline 07/15/2009 Other Reaction(s): Hives/Urticaria Lisinopril 03/26/2023 Medications amoxicillin (AMOXIL) 500 mg tablet Take 1 tablet (500 mg total) by mouth if needed (INFECTION). Active furosemide (LASIX) 20 mg tablet Take 1 tablet (20 mg total) by mouth 1 (one) time each day. Active simvastatin (ZOCOR) 20 mg tablet 1 TABLET AT BEDTIME Active warfarin (COUMADIN) 7.5 mg tablet 7.5 to 10 mg daily or as dir Active metoprolol succinate (TOPROL-XL) 50 mg 24 hr tablet Take 1 tablet (50 mg total) by mouth 1 (one) time each day. Do not crush or chew. Active levothyroxine (SYNTHROID, LEVOTHROID) 75 mcg tablet Take 1 tablet (75 mcg total) by mouth 1 (one) time each day. DISCONTINUED IN ERROR 025 Discontin ued(Dose adjustmen t) levothyroxine (Synthroid) 50 mcg tablet Take 1 tablet (50 mcg total) by mouth 1 (one) time each day. 2 025 Discontin ued(Dose adjustmen t) Active Problems Problem Noted Date Diagnosed Date [...] and manual management of the peripheral edema. Assessment & Plan (04/13/2025 10:04 AM EDT): Rich as mild left ventricular dysfunction with an EF of 50 to 55% mild hypertrophy. He continues to have some leg edema that is well-controlled with Lasix. He takes that daily and is doing wellich. He has no shortness of breath. He exercises a few times a week with no limitations. I did increase the resting heart rate on his pacemaker to 70 as this has been shown to lower filling pressures to some degree I will see if that helps. Sinus node dysfunction ([facility] V24, [facility] V28 ) 03/26/2023 Overview (05/23/2024): Chronic atrial [...] prefers to continue with the generic anticoagulant. Assessment & Plan (04/13/2025 10:04 AM EDT): Atrial fibrillation with a slow ventricular response. He has a well-functioning pacemaker which I interrogated today. I increased the lower resting limit to 70 bpm. He does have a low line rhythm with a average heart rate of 45 bpm. He is anticoagulated and will continue Coumadin at by his preference. I did discuss the potential benefits of Eliquis or Xarelto. Encounters Date Type Department Care Team Description 04/13/2025 9:25 AM EDT Office Visit [facility] [address] [facility] [address] [place] [address] Yaima Damon MD Sinus node dysfunction (CMS/HCC V24, CMS/[facility] V28) (Primary Dx); Chronic heart failure with preserved ejection fraction (HFpEF) (CMS/[facility] V24, CMS/[facility] V28) 02/18/2025 3:30 PM EDT Ancillary Procedure [facility] [address] [place] [id number] Encounter for adjustment or management of cardiac [...] Sign Reading Time Taken Comments Blood Pressure 142/90 04/13/2025 9:26 AM EDT Pulse 67 04/13/2025 9:26 AM EDT Temperature - - Respiratory Rate - - Oxygen Saturation 97% 04/13/2025 9:26 AM EDT Inhaled Oxygen Concentration - - Weight 99.8 kg (220 lb) 04/13/2025 9:26 AM EDT Height 182.9 cm (6') 04/13/2025 9:26 AM EDT Body Mass Index 29.84 04/13/2025 9:26 AM EDT Plan of Treatment Upcoming Encounters Date Type Department Care Team (Late st Contact Info) Description 09/07/2025 1:00 PM EDT Ancillary Procedure [facility] [address] [facility] [address] [place] [phone] Health Maintenance Due Date Last Done Comments Cholesterol Screening (Lipid Panel) 05/27/2022 Falls Risk Assessment 05/27/2022 Social Influencers of Health Screening 05/27/2022 Medicare Annual Wellness Visit 08/25/2023 08/24/2022 Depression Screening 06/18/2024 COVID-19 Vaccine (7 - Moderna risk 2024-25 season) 02/16/2025 04/18/2024, 04/16/2023, 03/28/2022, Additional history exists Hypertension/CHF/CAD Annual BMP Blood Test 02/18/2025 DTaP,Tdap,and Td Vaccines (6 - Td or Tdap) 10/18/2034 10/18/2024, 04/16/2023, 09/26/2016, Additional history exists Zoster Vaccines Completed 04/14/2019, 04/15/2018 RSV Immunization Adult Patients Completed 04/25/2023 Influenza Vaccine Completed 03/16/2025, , 04/16/2023, Additional history exists Pneumococcal Vaccine: 50+ Years Completed 03/16/2025, 05/02/2018, 05/17/2015, Additional history exists HIB Vaccines Aged Out [...] this topic Medical Devices Implanted Type Area Bridge Instructor Device Identifier Shelf Expiration Date Model / Serial / Lot Loco-Desiree Assurity Mri [id number] Implanted:04/2020 (Quantity not on file) Cardiac Pacemaker [facility] [employer] MRI 2272 / [id number] / Procedures Procedure Name Priority Date/Time Associated Diagnosis Comments ECG 12-LEAD Routine 04/13/2025 10:02 AM EDT Sinus node dysfunction (CMS/HCC V24, CMS/HCC V28) CARDIAC DEVICE [place]- [place] [facility] Routine 02/18/2025 3:43 PM EDT Encounter for adjustment or management of cardiac device from Last 3 Months Results * ECG 12 lead (04/13/2025 10:02 AM EDT) Ventricular Rate ECG 67 BPM GEMUSE Atrial Rate 241 BPM GEMUSE QRS Duration 194 ms GEMUSE Q-T Interval 468 ms GEMUSE QTc 494 ms GEMUSE R [place] 115 degrees GEMUSE T [place] -89 degrees GEMUSE ECG Interpretation Atrial fibrillation Ventricular-pac ed rhythm with occasional Premature ventricular complexes Abnormal ECG When compared with ECG of 26-AUG-2009 13:41, Electronic ventricular pacemaker has replaced Atrial fibrillation Confirmed by Seth DAMON, YAIMA ([id number]) on 04/13/2025 10:54:54 AM GEMUSE 04/13/2025 9:35 AM EDT 04/13/2025 10:54 AM EDT us Yaima Damon MD ECG ORDERABLES Edited Result - Final GEMUSE * CARDIAC DEVICE CHECK- [place] [facility] (02/18/2025 3:43 PM EDT) Date Time Interrogation Session [id number] CV DEVICE CHECK Implantable Pulse Generator Bridge Instructor [employer] CV DEVICE CHECK Implantable Pulse Generator Type IPG CV DEVICE CHECK Implantable Pulse Generator Model Assurity MRI 2272 CV DEVICE CHECK Implantable Pulse Generator Serial Number [id number] CV DEVICE CHECK Implantable Pulse Generator Implant [...] reviewed and tested * Presenting Rhythm: AF PLASTICS DESIGN ENGINEER 60s * Underlying Rhythm: AF VS 40 bpm * Heart Rate Histograms reviewed * Pacing and Detection Parameters were evaluated Narrative Procedure Note Yaima Damon MD - 02/23/2025 IMPRESSION: Normal In-Office: No Events * Normal Device Function * Alerts or events: 1 HVR alert, EGM suggestive of brief ventricularnoise, not reproducible today in office. Occurred back in August 2024, noepisodes since this occurrence, will continue to monitor. * Battery: MOS, 6.80 yrs * Sensing, impedance and thresholds reviewed and tested * Presenting Rhythm: AF PLASTICS DESIGN ENGINEER 60s * Underlying Rhythm: AF VS 40 bpm * Heart Rate Histograms reviewed * Pacing and Detection Parameters were evaluated us Order Referral Cardiovascular CV IMPLANTABLE CAR DIAC DEVICE PROCEDURES Final Result from Last 3 Months Insurance MEDICARE [facility] Care Teams Stemhole Borer And Topper Relationship Specialty Start Date End Date Royal Aguila MD [address] [place] [address] [address] [facility] [place] [address] PCP - General Internal Medicine 05/15/20
== END 2025-04-21 08:40 | disposition home or self-care (01) ==
LOC: HO.ACS 08:24
PROVIDERS: PCP Internal Medicine; Visit Provider Internal Medicine Medical Oncology
DX: Z79.01 Long term (current) use of anticoagulants (principal)

== ENCOUNTER → 2025-04-21 08:24 | Outpatient (BNVA) | payer MEDICARE, SELFPAY | PROVIDERS: PCP Internal Medicine; Visit Provider Internal Medicine Medical Oncology | DX: Z79.01 Long term (current) use of anticoagulants (principal) | CPT/HCPCS: 85610; 99211 ==

== ENCOUNTER 2025-05-04 08:14 | Outpatient (AMB) | payer MEDICARE, SELFPAY ==
--- NOTE | 2025-05-04 08:29 | MHC.PC.OV ---
Vital Signs 05/04/25 08:30 Height 5 ft 6 in Weight 235 lb 3.732 oz BMI 38.0 BP 136/68 Blood Pressure Location Lt brachial Position Sitting Pulse 65 Pulse Source Pulse Oximeter Temp 97.1 F Temp Source Temporal Artery Scan Pulse Oximetry (%) 98 Oxygen Delivery Method Room Air Intake Visit Reasons: RT swollen leg/painful Intake Note: Patient complains of Right swollen leg with pain. 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: Present Accompanied by: Daughter Allergies doxycycline (Doxycycline) Allergy (Severe, Verified 05/04/25 08:30) HIVES lisinopril Allergy (Severe, Verified 05/04/25 08:30) RASH Medication List - Last Reconciled 05/04/25 by Daniel Ann MD acetaminophen (Tylenol Extra Strength) 1,000 mg PO Q6H PRN doxepin (Silenor) 3 mg PO BEDTIME PRN furosemide 20 mg PO DAILY 90 days levothyroxine 75 mcg PO QAM metoprolol succinate ER 50 mg PO DAILY simvastatin 20 mg PO BEDTIME warfarin (Jantoven) See Protocol 7.5 mg QD orally QD; 90 days warfarin (Jantoven) See Protocol 10 mg X 6-7 DAYS/ WEEK WARFARIN DOSE PER INR Tobacco use date assessed: 05/04/25 Fall risk assessment: No Falls in past year Last assessed Fall Risk: 05/04/25 Dental Screening Dental Screen Date: 04/03/25 HPI HPI Comments History of Present Illness Details The patient is an 84-year-old male presenting for evaluation of right knee pain and increased swelling. The patient has a history of right foot drop, hypertension, atrial fibrillation, hypothyroidism, hypercholesterolemia, and sick sinus syndrome. He has a pacemaker due to sick sinus syndrome and follows up regularly with cardiology for device checks. Two weeks ago, while using a stationary bicycle, he experienced a sudden onset of sharp pain in his right kneecap. The pain is severe upon standing after sitting for a period, described as a major pain on initial weight-bearing, which then subsides after walking for two or three minutes. He is taking Tylenol 2000 mg three times a day for the pain. The patient has a history of chronic leg swelling for a couple of years, which has become markedly worse since the knee injury occurred. Past medical history is significant for right foot drop, a cardiac pacemaker, and gait instability. He reports trouble sleeping but declines taking prescribed doxepin due to fear of falling if he wakes up at night. His current medications include warfarin 10 mg daily, simvastatin 20 mg, metoprolol 50 mg, levothyroxine 75 mcg, and furosemide 20 mg. The warfarin is managed by his manufacturing test technician. [facility] Medical History Insomnia COVID-19 virus infection Hyperparathyroidism Basal cell carcinoma of skin Tubular adenoma of colon Sick sinus syndrome Hypercholesterolemia Hypothyroid Atrial fibrillation Monoclonal paraproteinemia Hypertension Surgical History History of parathyroidectomy Family History Father Past heart attack Social History Housing: House Alcohol intake: current Alcohol intake frequency: holidays/special occasions only Alcohol type: wine Patient Tobacco Use Status: Never used Tobacco e-Cigarette/Vaping Use: Never Used Second Hand Smoke Exposure: No service: Yes Current occupational status: retired Current occupational exposures/hazards: No Cognitive needs: No Hearing needs: No Vision needs: Yes Questionnaire Thrive Questionnaire Date Thrive assessed: 04/03/25 I am a: Patient What is your living situation today?: I have a steady place to live Within the past 12 months, did the food you bought not last and you didn't have the money to get more?: I choose not to answer this question Within the past 12 months, did you worry whether your food would run out before you got money to buy more?: I choose not to answer this question Do you have trouble paying for medicines?: No Do you have trouble getting transportation to medical appointments?: No Do you have trouble paying your heating and electricity bill?: No Do you have trouble taking care of your child, family member or friend?: No Do you have trouble with day-to-day activities such as bathing, preparing meals, shopping, managing finances, etc.?: No Are you currently unemployed and looking for a job?: I choose not to answer this question Are you interested in more education?: No Please select the resources that you would like help with: None Currently or been in a relationship where the following occur: I choose not to answer THRIVE Score: 0 YAMEL-7 AMB Questionnaire YAMEL-7 Date YAMEL - 7 assessed: 10/02/24 Source: Developed by Drs. Ranjit Hancock, Nancy Rosales, Franki Ribera and colleagues, with an educational fawad from [employer]. Review of Systems Const Details: As per HPI. Physical exam (Primary Care) Vital Signs: Last Vital Signs Temp 97.1 F 05/04/25 08:30 Pulse 65 05/04/25 08:30 BP 136/68 05/04/25 08:30 Pulse Ox 98 05/04/25 08:30 Oxygen Delivery Method Room Air 05/04/25 08:30 BMI result Body Mass Index 38.0 Tobacco/Smoking Status: Tobacco use Status Tobacco use date assessed 05/04/25 05/04/25 08:30 Patient Tobacco Use Status Never used Tobacco 05/04/25 08:30 e-Cigarette/Vaping Use Never Used 05/04/25 08:30 Thrive Assessment: Date of Thrive Assessment Date Thrive assessed 04/03/25 05/04/25 08:30 Currently or been in a relationship where the following occur: I choose not to answer Const Other: Pertinent findings are in BOLD GENERAL APPEARANCE NAD, activity normal for age, well developed/ well nourished, no cyanosis, pallor, or diaphoresis. EYES lids/conjunctiva normal. EARS/NOSE/THROAT Mucous membranes moist, nares normal, lips/teeth normal uvula midline without oral pharyngeal erythema, exudate or swelling TMs normal bilaterally. No lymphangitis/lymphedema. HEAD/NECK normocephalic atraumatic, no facial trauma, neck is supple. RESPIRATORY respiratory effort normal, speaks in full sentences, no tripod position, no accessory muscle use. Lungs clear to auscultation without rhonchi, wheezes, rales CARDIAC Regular rate and rhythm, no edema. ABDOMINAL Soft, ND/NT. No evidence of fluid wave. No pulsatile masses on exam, rebound tenderness, Wilkerson sign or pain over Mcburney's point. MUSCLES/EXTREMITIES No abnormal range of motion, no swelling. SKIN Warm, pink and dry. No rashes, dermatoses, petechiae or lesions. RLE swelling +2. Right knee tenderness. Gait impaired due to knee pain and swelling. NEUROLOGICAL Speech is clear and appropriate. Normal level of consciousness. Gait and coordination are normal. 5/5 strength in all extremities. PSYCH Normal mood and affect. Judgement/competence is appropriate Coding Level of Care Code Est Pt Level 4 (85641) Diagnoses Right leg swelling M79.89 Acute pain of right knee M25.561 Chronicity: acute Time Spent (min) 45 Assessment & Plan Assessment & Plan (1) Right leg swelling: Code(s): M79.89 - Other specified soft tissue disorders Category: Medical Plan: - an ultrasound of the right leg will be obtained today and to rule out deep vein thrombosis (DVT). - The suspicion for a DVT is due to the acute worsesning in swelling. - Prescribed a topical anti-inflammatory cream and a lidocaine patch for local pain management. - The patient was cautioned to use the topical anti-inflammatory cream no more than three times per day due to the increased risk of bleeding while on warfarin. - The patient will continue taking Tylenol up to 3,000 mg daily for pain, with a maximum dose of 4,000 mg. - A follow-up appointment is scheduled in two days to review the imaging results and determine further management. (2) Knee pain, right: Code(s): M25.561 - Pain in right knee Category: Medical Qualifiers: Chronicity: acute Qualified Code(s): M25.561 - Pain in right knee Plan: An X-ray of the right knee to evaluate for fracture - The application for a handicap placard will be completed due to the patient's discomfort and pain with walking distances. Orders: Orders XR knee RT 2V Today M25.561 - Pain in right knee US venous duplex LE RT Today M79.89 - Other specified soft tissue disorders Medications: New diclofenac sodium 1% (Voltaren Arthritis Pain) apply to single knee, ankle, foot; for foot includes sole/toes/top of foot 2 grams topical TID PRN 100 grams 0RF pain lidocaine 3% 1 appl topical TID PRN 28.35 grams 0RF pain
[2025-05-04 08:30] VITALS: BP 136/68; PULSE 65; TEMP 36.2; O2SAT 98; BMI 38.0
== END 2025-05-04 09:05 | disposition home or self-care (01) ==
LOC: HO.HMCH 08:15
PROVIDERS: PCP Internal Medicine; Visit Provider Internal Medicine
DX: M79.89 Other specified soft tissue disorders (principal); M25.561 Pain in right knee

== ENCOUNTER 2025-05-04 09:35 | Outpatient (REF) | payer MEDICARE, SELFPAY ==
--- NOTE | ~2025-05-04 | XR_ITS ---
EXAMINATION: XR KNEE, RIGHT CLINICAL INFORMATION: M25.561 - Pain in right knee COMPARISON: None available. TECHNIQUE: AP and lateral views of the right knee. FINDINGS: Mild joint space narrowing involving the medial compartment with sclerosis along the tibial plateau. No acute cortical disruption or malalignment. Suprapatellar bursa joint effusion, moderate volume. Exostosis in the anterior superior and to a lesser extent anterior inferior patella as well as the anterior tibial tuberosity. No lytic or blastic lesions. Vascular calcifications, subtle. 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 Suprapatellar bursa joint effusion, moderate volume. Quadriceps tendon enthesopathy. Patellar tendon enthesopathy, mild. Electronically signed by: Maury Wick MD 05/04/2025 10:54 AM [facility]
--- NOTE | ~2025-05-04 | US_ITS ---
EXAMINATION: US TRIPLEX LOWER EXTREMITY, RIGHT CLINICAL INFORMATION: Knee pain COMPARISON: Ultrasound 12/14/2020 lower extremity TECHNIQUE: Color-flow triplex imaging with spectral analysis and compression Doppler were performed on the right lower extremity. FINDINGS: Respiratory variation, normal compression and augmented flow are noted throughout the right lower extremity. The visualized common femoral vein, superficial femoral vein, profunda femoral vein, popliteal vein and midcalf peroneal and posterior tibial venous segments show no evidence of deep venous thrombosis. There is no Harris's cyst. Right groin lymph node measuring 1.6 x 0.5 x 1 cm.(Short axis 0.5 cm) Right calf soft tissue edema. US/US venous duplex LE RT IMPRESSION: No evidence of deep venous thrombosis involving the right lower extremity. Electronically signed by: Carlos Fleming MD 05/04/2025 11:31 AM [facility]
== END 2025-05-04 09:36 | disposition home or self-care (01) ==
LOC: HO.US 09:35
PROVIDERS: PCP Internal Medicine; Visit Provider Internal Medicine
DX: M25.561 Pain in right knee (principal); M79.89 Other specified soft tissue disorders
CPT/HCPCS: 73560; 93971; 99212

== ENCOUNTER → 2025-05-04 10:13 | Outpatient (BNV) | payer MEDICARE, SELFPAY | PROVIDERS: PCP Internal Medicine; Visit Provider Radiology Diagnostic Radiology | DX: M25.461 Effusion, right knee (principal) | CPT/HCPCS: 73560 ==

== ENCOUNTER 2025-05-06 15:48 | Outpatient (AMB) | payer MEDICARE, SELFPAY ==
[2025-05-06 16:16] VITALS: BP 160/92; PULSE 76; TEMP 36.3; O2SAT 97; BMI 32.2
--- NOTE | 2025-05-06 16:16 | MHC.PC.OV ---
Vital Signs 05/06/25 16:16 Height 5 ft 11.26 in Weight 232 lb 12.93 oz BMI 32.2 BP 160/92 H Blood Pressure Location Lt brachial Position Sitting Pulse 76 Pulse Source Pulse Oximeter Temp 97.3 F Temp Source Temporal Artery Scan Pulse Oximetry (%) 97 Oxygen Delivery Method Room Air Intake Visit Reasons: follow up Intake Note: Patient is here to follow up on Xray and US of right knee. Portable Canteen Operator Required: No Party Plan Sales Consultant: Present Accompanied by: Daughter Allergies doxycycline (Doxycycline) Allergy (Severe, Verified 05/06/25 16:16) HIVES lisinopril Allergy (Severe, Verified 05/06/25 16:16) RASH Medication List - Last Reconciled 05/06/25 by Daniel Ann MD acetaminophen (Tylenol Extra Strength) 1,000 mg PO Q6H PRN cephalexin 500 mg PO QID diclofenac sodium 1% (Voltaren Arthritis Pain) 2 grams topical TID PRN doxepin (Silenor) 3 mg PO BEDTIME PRN furosemide 20 mg PO DAILY 90 days levothyroxine 75 mcg PO QAM lidocaine 3% 1 appl topical TID PRN metoprolol succinate ER 50 mg PO DAILY simvastatin 20 mg PO BEDTIME warfarin (Jantoven) See Protocol 7.5 mg QD orally QD; 90 days warfarin (Jantoven) See Protocol 10 mg X 6-7 DAYS/ WEEK WARFARIN DOSE PER INR Tobacco use date assessed: 05/06/25 Fall risk assessment: No Falls in past year Last assessed Fall Risk: 05/06/25 Dental Screening Dental Screen Date: 04/03/25 HPI HPI Comments History of Present Illness Details The patient is an 84-year-old male presenting for follow-up of worsening knee pain and lower extremity swelling. The knee pain began one week ago and he was seen in clinic last week. Recent diagnostic workup includes a leg ultrasound, which was negative for deep vein thrombosis, and a knee X-ray from two days prior. The X-ray showed no fractures but did reveal osteoarthritis and a suprapatellar joint effusion and Quadriceps tendon enthesopathy, patellar tendon enthesopathy. He reports using compression socks and elevating his feet to manage the swelling. The patient's current medications include Lasix 20 mg daily and warfarin. He has tried topical lidocaine and Voltaren gel for the pain without relief. He has a known allergy to doxycycline. The patient also reports poor sleep, only sleeping for about two hours at a time. [facility] Medical History Insomnia COVID-19 virus infection Hyperparathyroidism Basal cell carcinoma of skin Tubular adenoma of colon Sick sinus syndrome Hypercholesterolemia Hypothyroid Atrial fibrillation Monoclonal paraproteinemia Hypertension Surgical History History of parathyroidectomy Family History Father Past heart attack Social History Housing: House Alcohol intake: current Alcohol intake frequency: holidays/special occasions only Alcohol type: wine Patient Tobacco Use Status: Never used Tobacco e-Cigarette/Vaping Use: Never Used Second Hand Smoke Exposure: No service: Yes Current occupational status: retired Current occupational exposures/hazards: No Cognitive needs: No Hearing needs: No Vision needs: Yes Questionnaire Thrive Questionnaire Date Thrive assessed: 04/03/25 I am a: Patient What is your living situation today?: I have a steady place to live Within the past 12 months, did the food you bought not last and you didn't have the money to get more?: I choose not to answer this question Within the past 12 months, did you worry whether your food would run out before you got money to buy more?: I choose not to answer this question Do you have trouble paying for medicines?: No Do you have trouble getting transportation to medical appointments?: No Do you have trouble paying your heating and electricity bill?: No Do you have trouble taking care of your child, family member or friend?: No Do you have trouble with day-to-day activities such as bathing, preparing meals, shopping, managing finances, etc.?: No Are you currently unemployed and looking for a job?: I choose not to answer this question Are you interested in more education?: No Please select the resources that you would like help with: None Currently or been in a relationship where the following occur: I choose not to answer THRIVE Score: 0 YAMEL-7 AMB Questionnaire YAMEL-7 Date YAMEL - 7 assessed: 10/02/24 Source: Developed by Drs. Ranjit Hancock, Nancy Rosales, Franki Ribera and colleagues, with an educational fwaad from [employer]. Review of Systems Const Details: As per HPI. Physical exam (Primary Care) Vital Signs: Last Vital Signs Temp 97.3 F 05/06/25 16:16 Pulse 76 05/06/25 16:16 BP 160/92 H 05/06/25 16:16 Pulse Ox 97 05/06/25 16:16 Oxygen Delivery Method Room Air 05/06/25 16:16 BMI result Body Mass Index 32.2 Tobacco/Smoking Status: Tobacco use Status Tobacco use date assessed 05/06/25 05/06/25 16:21 Patient Tobacco Use Status Never used Tobacco 05/06/25 16:21 e-Cigarette/Vaping Use Never Used 05/06/25 16:21 Thrive Assessment: Date of Thrive Assessment Date Thrive assessed 04/03/25 05/06/25 16:21 Currently or been in a relationship where the following occur: I choose not to answer Const Other: Pertinent findings are in BOLD GENERAL APPEARANCE NAD, activity normal for age, well developed/ well nourished, no cyanosis, pallor, or diaphoresis. EYES lids/conjunctiva normal. EARS/NOSE/THROAT Mucous membranes moist, nares normal, lips/teeth normal uvula midline without oral pharyngeal erythema, exudate or swelling TMs normal bilaterally. No lymphangitis/lymphedema. HEAD/NECK normocephalic atraumatic, no facial trauma, neck is supple. RESPIRATORY respiratory effort normal, speaks in full sentences, no tripod position, no accessory muscle use. Lungs clear to auscultation without rhonchi, wheezes, rales CARDIAC Regular rate and rhythm, no edema. ABDOMINAL Soft, ND/NT. No evidence of fluid wave. No pulsatile masses on exam, rebound tenderness, Wilkerson sign or pain over Mcburney's point. MUSCLES/EXTREMITIES No abnormal range of motion. Swelling in right lower extremity +2. SKIN Warm, pink and dry. No rashes, dermatoses, petechiae or lesions. NEUROLOGICAL Speech is clear and appropriate. Normal level of consciousness. Gait and coordination are normal. 5/5 strength in all extremities. PSYCH Normal mood and affect. Judgement/competence is appropriate Coding Level of Care Code Est Pt Level 3 (08352) Diagnoses Right leg swelling M79.89 Acute pain of right knee M25.561 Chronicity: acute Time Spent (min) 20 Assessment & Plan Assessment & Plan (1) Right leg swelling: Code(s): M79.89 - Other specified soft tissue disorders Category: Medical Plan: - The patient has worsening bilateral lower extremity edema and associated pruritic stasis dermatitis, which has resulted in skin erythema and irritation from scratching. - To manage the edema, the patient's daily dose of Lasix will be increased from 20 mg to 40 mg (two pills) for at least one to two weeks. - If the swelling does not improve, the dose can be further increased to 60 mg (three pills) for a maximum of five consecutive days. - It is recommended to apply a hydrating cream to the legs to manage the dermatitis and prevent skin breakdown. This is prioritized over continuous use of compression socks. (2) Knee pain, right: Code(s): M25.561 - Pain in right knee Category: Medical Qualifiers: Chronicity: acute Qualified Code(s): M25.561 - Pain in right knee Plan: - The patient's symptoms are attributed to osteoarthritis, suprapatellar joint effusion, and ligamentous inflammation secondary to overuse, as seen on X-ray. - An underlying meniscal or ligamentous tear remains a possibility, which would require an MRI for definitive diagnosis. - To address potential infection within the joint effusion, a course of antibiotics is warranted. - Plan is to prescribe Cephalexin 500 mg every 6 hours for 2 weeks, as the patient is allergic to the initially considered doxycycline. - Conservative management will include rest, ice application to the knee, and use of a knee brace if it does not exacerbate pain. - Follow up is scheduled in 2 weeks. If there is no clinical improvement, an MRI of the knee will be ordered. Plan I informed the patient that his recent leg ultrasound did not show any blood clots, and his knee X-ray showed no fracture but did reveal arthritis and fluid in the joint, likely from overuse. I explained that we need to treat for a possible infection in the knee joint and will also work on reducing the swelling. We discussed the plan to start Cephalexin for two weeks, increase the dose of his Lasix, and use supportive measures like ice, rest, and a knee brace. I advised that we will re-evaluate in two weeks, and if the knee is not better, an MRI will be the next step to look for a possible ligament or meniscus injury. We discussed the importance of managing the itchy skin on his legs by using a hydrating cream, even prioritizing it over constant use of compression socks to prevent skin breakdown. I also addressed the high blood pressure reading, explaining it was likely due to his acute pain, and provided clear instructions for home monitoring and when to seek emergency care. Return precautions were discussed, including seeking immediate medical attention for fever, chills, or signs of worsening infection. Medications: New cephalexin 500 mg PO QID 56 caps 0RF
--- OUTSIDE RECORDS SUMMARY | 2025-05-07 04:26 | XMS_ITS | Patient Health Record ---
[facility] Organization [facility] Address [address] [place] [address] Care Team Providers Care Methods Specialist Name Role Phone Royal Aguila Primary Care Provider Smooth Corbett Unavailable [phone] Reason For Referral No Information Medications Medication [...] W/U Status Risk Notes Problem Plantar wart (49658269) Plantar wart (B07.0) Active confirmed Plan Of Treatment Pending Test Test Name Order Date [id number] Destruction, 1-14 10/17/2016 Insurance Providers Payer Name Payer Address Payer Phone Subscriber Number Group Number Insured Name Patient Relationship to Insured Coverage Start Date Coverage End Date Medicare [facility] [employer] [address] [place] [phone] [id number] Erasmo Escudero Self - patient is the insured 4 [employer] Blue [employer] [address] [place] [address] [phone] [id number] BlackwellErasmo ulloa Self - patient is the insured 4 Medical (General) History Medical History History ICD Code Back,Hip,and Knee pain CAD (Cholesterol) Cancer Measles Mumps Chicken pox Heart disease - Pacemaker High blood pressure Thyroid Surgical History Surgery Date(Month/Year) cardiac pacemeker 2008
--- OUTSIDE RECORDS SUMMARY | 2025-05-07 04:26 | XMS_ITS | Patient Health Record ---
Author Organization [facility] Address [address] [place] [address] Care Team Providers Care Channeler Insole Name Role Phone Royal Aguila MD Primary Care Provider Emre Orosco Jr Unavailable Allergies Allergen (clinical drug ingredient) Drug/Non Drug Allergy documented on EMR Reaction Allergy Type Onset Date Status doxycycline Doxycycline Unknown Drug Allergy Act mahamed Reason For Referral No Information Medications Medication SIG (Take, Route, Frequency, Duration) Notes Start Date End Date Status Colyte with Flavor Packs 240 GM Solution Reconstituted As directed Orally Over the specified time.; Duration: 1 day(s) 06/23/2015 Active Simvastatin 20 MG Tablet 1 tablet in the evening Orally Once a day Active Metoprolol Succinate ER 50 MG Tablet Extended Release 24 Hour 1 tablet Orally BID Active Furosemide 20 MG Tablet 1 tablet Orally Once a day Active Warfarin Sodium 10 MG Tablet 1 tablet-al t 10/7.5 Orally Once a day Active Levothyroxine Sodium 50 MCG Tablet 1 tablet Orally Once a day Active Lisinopril 40 MG Tablet 1 tablet Orally Once a day Active Immunizations Vaccine Route Administration Date Status Comme nts Flu vaccine no Preserv 3 and > Unknown 04/20/2015 Admin istered Social History Social History Additional Details Category Social Info Options Details Miscellaneous: Marital status: Occupation: retired Problems Problem Type SNOMED Code ICD Code Onset Dates Problem Status W/U Status Risk Notes Problem Colon cancer screening (814575929) Colon cancer screening (Z12.11) Active confirmed Problem Rectal bleeding (78552270) Rectal bleeding (K62.5) Active confirmed Problem Long-term current use of anticoagulant (786252347) FDC (current) use of anticoagulants (Z79.01) Active confirmed Problem Hypertension (44838643) Hypertension (I10) Active confirmed Problem Diverticulosis of colon (finding) (874780756) Diverticulosis of colon (without mention of hemorrhage) (K57.30) Active confirmed Plan Of Treatment Future Test Test Name Order Date COLONOSCOPY 06/23/2015 Insurance Providers Payer Name Payer Address Payer Phone Subscriber Number Group Number Insured Name Patient Relationship to Insured Coverage Start Date Coverage End Date MEDICARE OF [place] [address] [place] [address] [id number] ILAN DUDLEY Self - patient is the insured [employer] ATT[employer] CLAIMS [address] [place] [address] [id number] ILAN DUDLEY Self - patient is the insured Medical (General) History Medical History History ICD Code colonoscopy 03-11-2010 colon polyps headaches hypertension atrial flutter/fibrillation hypothyroidism Surgical History Surgery Date(Month/Year) sinus surgery cardiac pacemeker 06/09/2009 thyroidectomy skin cancer removals cardiac ablation 2011
== END 2025-05-06 16:49 | disposition home or self-care (01) ==
LOC: HO.HMCH 15:49
PROVIDERS: PCP Internal Medicine; Visit Provider Internal Medicine
DX: M79.89 Other specified soft tissue disorders (principal); M25.561 Pain in right knee

== ENCOUNTER → 2025-05-06 15:48 | Outpatient (BNVA) | payer MEDICARE, SELFPAY | PROVIDERS: PCP Internal Medicine; Visit Provider Internal Medicine | DX: M79.89 Other specified soft tissue disorders (principal); M25.561 Pain in right knee | CPT/HCPCS: 99212 ==

== ENCOUNTER → 2025-05-19 08:37 | Outpatient (BNVA) | payer MEDICARE, SELFPAY | PROVIDERS: PCP Internal Medicine; Visit Provider Internal Medicine Medical Oncology | DX: I48.20 Chronic atrial fibrillation, unspecified (principal); Z51.81 Encounter for therapeutic drug level monitoring; Z79.01 Long term (current) use of anticoagulants | CPT/HCPCS: 85610; 99211 ==

== ENCOUNTER 2025-05-20 13:42 | Outpatient (AMB) | payer MEDICARE, SELFPAY ==
--- NOTE | 2025-05-20 14:31 | A.OFFPC_ITS ---
Vital Signs 05/20/25 14:32 Height 5 ft 11.26 in Weight 229 lb 0.964 oz BMI 31.7 BP 136/70 Blood Pressure Location Lt brachial Position Sitting Pulse 72 Pulse Source Pulse Oximeter Temp 97.1 F Temp Source Temporal Artery Scan Pulse Oximetry (%) 96 Oxygen Delivery Method Room Air Intake Visit Reasons: 2 week f/u Director Biology Required: No Cmo: Present Accompanied by: Daughter Allergies doxycycline (Doxycycline) Allergy (Severe, Verified 05/20/25 15:48) HIVES lisinopril Allergy (Severe, Verified 05/20/25 15:48) RASH Tobacco use date assessed: 05/20/25 Fall risk assessment: No Falls in past year Last assessed Fall Risk: 05/20/25 Dental Screening Dental Screen Date: 04/03/25 HPI HPI Comments History of Present Illness Details The patient is an 84 year old individual presenting with severe and worsening right knee pain. The pain initially started pain while the patient was pedaling a stationary bike. The patient was seen in our clinic on 05/04 for right knee pain. At that time Xray did not show any fracture, but it showed bicompartmental osteoarthrosis/osteoarthritis involving mostly the medial compartment, mild, suprapatellar bursa joint effusion, moderate volume, and quadriceps tendon enthesopathy and mild patellar enthesopathy. US was negative for DVT. The patient was prescribed cephalexin for 500 mg QID for 14 days. He does not feel the pain has been improving despite the antibiotic ttreatment. His pain actually got worse and he is currently using a cane. The patient has also tried ice and topical creams without success. The patient has a pacemaker, and it was noted that while the pacemaker itself is FDA-approved for an MRI, the leads are not, which complicates options for advanced imaging. [facility] Medical History Insomnia COVID-19 virus infection Hyperparathyroidism Basal cell carcinoma of skin Tubular adenoma of colon Sick sinus syndrome Hypercholesterolemia Hypothyroid Atrial fibrillation Monoclonal paraproteinemia Hypertension Surgical History History of parathyroidectomy Family History Father Past heart attack Social History Housing: House Alcohol intake: current Alcohol intake frequency: holidays/special occasions only Alcohol type: wine Patient Tobacco Use Status: Never used Tobacco e-Cigarette/Vaping Use: Never Used Second Hand Smoke Exposure: No Do you have a plan to hurt others: No Plan service: Yes Current occupational status: retired Current occupational exposures/hazards: No Cognitive needs: No Hearing needs: No Vision needs: Yes Questionnaire Thrive Questionnaire Date Thrive assessed: 04/03/25 I am a: Patient What is your living situation today?: I have a steady place to live Within the past 12 months, did the food you bought not last and you didn't have the money to get more?: I choose not to answer this question Within the past 12 months, did you worry whether your food would run out before you got money to buy more?: I choose not to answer this question Do you have trouble paying for medicines?: No Do you have trouble getting transportation to medical appointments?: No Do you have trouble paying your heating and electricity bill?: No Do you have trouble taking care of your child, family member or friend?: No Do you have trouble with day-to-day activities such as bathing, preparing meals, shopping, managing finances, etc.?: No Are you currently unemployed and looking for a job?: I choose not to answer this question Are you interested in more education?: No Please select the resources that you would like help with: None Currently or been in a relationship where the following occur: I choose not to answer THRIVE Score: 0 YAMEL-7 AMB Questionnaire YAMEL-7 Date YAMEL - 7 assessed: 10/02/24 Source: Developed by Drs. Ranjit Hancock, Nancy Rosales, Franki Ribera and colleagues, with an educational fawad from [employer]. Review of Systems Const Details: As per HPI. Physical exam (Primary Care) Vital Signs: Last Vital Signs Temp 97.1 F 05/20/25 14:32 Pulse 72 05/20/25 14:32 BP 136/70 05/20/25 14:32 Pulse Ox 96 05/20/25 14:32 Oxygen Delivery Method Room Air 05/20/25 14:32 BMI result Body Mass Index 31.7 Tobacco/Smoking Status: Tobacco use Status Tobacco use date assessed 05/20/25 05/20/25 14:37 Patient Tobacco Use Status Never used Tobacco 05/20/25 14:37 e-Cigarette/Vaping Use Never Used 05/20/25 14:37 Thrive Assessment: Date of Thrive Assessment Date Thrive assessed 04/03/25 05/20/25 14:37 Currently or been in a relationship where the following occur: I choose not to answer Const Other: Pertinent findings are in BOLD GENERAL APPEARANCE NAD, activity normal for age, well developed/ well nourished, no cyanosis, pallor, or diaphoresis. EYES lids/conjunctiva normal. EARS/NOSE/THROAT Mucous membranes moist, nares normal, lips/teeth normal uvula midline without oral pharyngeal erythema, exudate or swelling TMs normal bilaterally. No lymphangitis/lymphedema. HEAD/NECK normocephalic atraumatic, no facial trauma, neck is supple. RESPIRATORY respiratory effort normal, speaks in full sentences, no tripod position, no accessory muscle use. Lungs clear to auscultation without rhonchi, wheezes, rales CARDIAC Regular rate and rhythm, no edema. ABDOMINAL Soft, ND/NT. No evidence of fluid wave. No pulsatile masses on exam, rebound tenderness, Wilkerson sign or pain over Mcburney's point. MUSCLES/EXTREMITIES No abnormal range of motion, no swelling. Erythema and wamrth in the patient right knee. SKIN Warm, pink and dry. No rashes, dermatoses, petechiae or lesions. NEUROLOGICAL Speech is clear and appropriate. Normal level of consciousness. Gait and coordination are normal. 5/5 strength in all extremities. PSYCH Normal mood and affect. Judgement/competence is appropriate Coding Level of Care Code Est Pt Level 3 (00760) Diagnoses Acute pain of right knee M25.561 Chronicity: acute Time Spent (min) 20 Assessment & Plan Assessment & Plan (1) Knee pain, right: Code(s): M25.561 - Pain in right knee Category: Medical Qualifiers: Chronicity: acute Qualified Code(s): M25.561 - Pain in right knee Plan: - The patient presents with severe, worsening knee pain, inflammation, and warmth despite a course of oral antibiotics, raising high suspicion for a resistant bacterial infection or septic arthritis. - Due to the failure of outpatient management and symptom progression, the patient is referred for immediate evaluation in the emergency department. - A referral letter will be provided detailing the clinical course, treatments tried (oral antibiotics, ice, creams), and prior diagnostics (X-ray, ultrasound) to facilitate care and avoid repetition. - Recommended the ED perform further workup, including a potential knee tap (arthrocentesis) to analyze synovial fluid and guide antibiotic therapy. - The patient may require admission for IV antibiotics. - The complexity of obtaining an MRI due to the patient's pacemaker with [id number] leads was discussed; this is best managed in a hospital setting where coordination with device specialists can occur. - Advised the patient to present to the [facility] emergency department initially, with the understanding that a transfer to a facility like [facility] might be necessary for specialized imaging. - The patient is to schedule a follow-up appointment in two weeks. Plan I discussed with the patient and his daughter that the worsening pain, warmth, and inflammation despite a full course of oral antibiotics are highly kimberlee rning. I explained that this suggests a possible resistant infection that cannot be managed in the outpatient setting. I recommended an immediate evaluation in the emergency department to expedite fu rther diagnostics and treatment. I explained the potential need for a knee tap to analyze the fluid and the likely necessity of IV antibiotics. I also addressed the complexity of obtaining an MRI due to the patient's pacemaker with non-compatible leads. I provided a referral letter to ensure the ED physicians are aware of the patient's history and failed treatments. We discussed the logistics of which hospital to go to, and I advised starting at the local [facility] ED, as they can perform the initial urgent evaluation and treatment, with a potential transfer to [facility] if required for imaging.
[2025-05-20 14:32] VITALS: BP 136/70; PULSE 72; TEMP 36.2; O2SAT 96; BMI 31.7
--- OUTSIDE RECORDS SUMMARY | 2025-05-20 16:20 | XMS_ITS | Clinical Summary ---
Author Organization [address] [place] [address] [place] [phone] Phone Care Team Providers Care Director Of Bands Name Role Phone Royal Aguila MD Primary Care Provider [phone] Allergies Active Allergy Reactions Criticality Noted Date [...] day. Do not crush or chew. Active Active Problems Problem Noted Date Diagnosed [...] see if that helps. Sinus node dysfunction (CMS/HCC V24, CMS/HCC V28 [...] Encounters Date Type Department Care Team Description 05/20/2025 Telephone [facility] [address] [place] [address] Yaima Damon MD 04/13/2025 9:25 AM EDT Office Visit [facility] [address] [place] [address] Yaima Damon MD Sinus node dysfunction (CMS/HCC V24, CMS/HCC V28) (Primary Dx); Chronic heart failure with preserved ejection fraction (HFpEF) ([facility] V24, [facility] V28) 02/18/2025 3:30 PM EDT Ancillary Procedure [facility] [address] [facility] [address] [place] [phone] Encounter for adjustment or management of cardiac [...] Description 09/07/2025 1:00 PM EDT Ancillary Procedure [facility] - [facility] [address] [facility] [address] [place] [address] Health Maintenance Due Date Last Done Comments Cholesterol Screening (Lipid Panel) 05/27/2022 Falls Risk Assessment 05/27/2022 Social Influencers of Health Screening 05/27/2022 Medicare Annual Wellness Visit 08/25/2023 08/24/2022 Depression Screening 06/18/2024 COVID-19 Vaccine ( season) 2025 04/18/2024, 04/16/2023, 03/28/2022, Additional history exists Hypertension/CHF/CAD [...] this topic Medical Devices Implanted Type Area Chief Green Officer Device Identifier Shelf Expiration Date Model / Serial / Lot Kevint-Desiree Assurity Mri [id number] Implanted:04/2020 (Quantity not on file) Cardiac Pacemaker [employer]- [employer] MRI 2272 / [id number] / Procedures Procedure Name Priority Date/Time Associated Diagnosis Comments ECG 12-LEAD Routine 04/13/2025 10:02 AM EDT Sinus node dysfunction (CMS/HCC V24, CMS/HCC V28) EXTERNAL CLINICAL LAB Routine 03/16/2025 9:11 AM EDT CARDIAC DEVICE CHECK- [facility] Routine 02/18/2025 3:43 PM EDT Encounter for adjustment or management of cardiac device from Last 3 Months Results * ECG 12 lead (04/13/2025 10:02 AM EDT) Ventricular Rate ECG 67 BPM GEMUSE Atrial Rate 241 BPM GEMUSE QRS Duration 194 ms GEMUSE Q-T Interval 468 ms GEMUSE QTc 494 ms GEMUSE R Adams 115 degrees GEMUSE T Adams -89 degrees GEMUSE ECG Interpretation Atrial fibrillation Ventricular-pac ed rhythm with occasional Premature ventricular complexes Abnormal ECG When compared with ECG of 26-AUG-2009 13:41, Electronic ventricular pacemaker has replaced Atrial fibrillation Confirmed by Seth DAMON, YAIMA ([id number]) on 04/13/2025 10:54:54 AM GEMUSE 04/13/2025 9:35 AM EDT 04/13/2025 10:54 AM EDT us Yaima Damon MD ECG ORDERABLES Edited Result - Final GEMUSE * External clinical lab (03/16/2025 9:11 AM EDT) us Historical Provider LAB BLOOD ORDERABLES Kelsey l Result * CARDIAC DEVICE CHECK- [facility]- [facility] (02/18/2025 3:43 PM EDT) Date Time Interrogation Session [id number] CV DEVICE CHECK Implantable Pulse Generator Chief Green Officer [employer] CV DEVICE CHECK Implantable Pulse Generator Type IPG CV DEVICE CHECK Implantable Pulse Generator Model Assurity MRI 2272 CV DEVICE CHECK Implantable Pulse Generator Serial Number [id number] CV DEVICE CHECK Implantable Pulse Generator Implant [...] reviewed and tested * Presenting Rhythm: AF STAFF NURSE MIDWIFE 60s * Underlying Rhythm: AF VS 40 [...] reviewed and tested * Presenting Rhythm: AF STAFF NURSE MIDWIFE 60s * Underlying Rhythm: AF VS 40 bpm * Heart Rate Histograms reviewed * Pacing and Detection Parameters were evaluated us Order Referral Cardiovascular CV IMPLANTABLE CAR DIAC DEVICE PROCEDURES Final Result from Last 3 Months Insurance MEDICARE [facility] Care Teams Director Of Bands Relationship Specialty Start Date End Date Royal Aguila MD [address] [place] [address] [address] [facility] [place] [address] PCP - General Internal Medicine 05/15/20
--- OUTSIDE RECORDS SUMMARY | 2025-05-20 16:20 | XMS_ITS | Patient Health Record ---
Author Organization [facility] Address [address] [place] [address] Care Team Providers Care Conveyancer Name Role Phone Royal Aguila Primary Care Provider Smooth Corbett Unavailable [phone] Reason For Referral No Information Medications Medication [...] W/U Status Risk Notes Problem Plantar wart (40051404) Plantar wart (B07.0) Active confirmed Plan Of Treatment Pending Test Test Name Order Date [id number] Destruction, 1-14 10/17/2016 Insurance Providers Payer Name Payer Address Payer Phone Subscriber Number Group Number Insured Name Patient Relationship to Insured Coverage Start Date Coverage End Date Medicare [facility] [employer] [address] [place] [phone] [id number] Erasmo Escudero Self - patient is the insured 4 [employer] Blue Shield [address] [place] [address] [id number] [place]Er[place]o ulloa Self - patient is the insured 4 Medical (General) History Medical History History ICD Code Back,Hip,and Knee pain CAD (Cholesterol) Cancer Measles Mumps Chicken pox Heart disease - Pacemaker High blood pressure Thyroid Surgical History Surgery Date(Month/Year) cardiac pacemeker 2008
--- OUTSIDE RECORDS SUMMARY | 2025-05-20 16:21 | XMS_ITS | Patient Health Record ---
Author Organization [facility] Address [address] [place] [address] Care Team Providers Care Principal Research Economist Name Role Phone Royal Aguila MD Primary Care Provider Emre Orosco Jr Unavailable [phone] Allergies Allergen (clinical drug ingredient) Drug/Non Drug [...] Status Risk Notes Problem Colon cancer screening (740414383) Colon cancer screening (Z12.11) Active confirmed Problem Rectal bleeding (35440725) Rectal bleeding (K62.5) Active confirmed Problem Long-term current use of anticoagulant (316410075) correction (current) use of anticoagulants (Z79.01) Active confirmed Problem Hypertension (91520344) Hypertension (I10) Active confirmed Problem Diverticulosis of colon (finding) (510166194) Diverticulosis of colon (without mention of hemorrhage) (K57.30) Active confirmed Plan Of Treatment Future Test Test Name Order Date COLONOSCOPY 06/23/2015 Insurance Providers Payer Name Payer Address Payer Phone Subscriber Number Group Number Insured Name Patient Relationship to Insured Coverage Start Date Coverage End Date MEDICARE OF [place] [address] [place] [address] [phone] [id number] ILAN DUDLEY Self - patient is the insured MEDEX ATTN CLAIMS [address] [place] [address] [id number] ILAN DUDLEY Self - patient is the insured Medical (General) History Medical History History ICD Code colonoscopy 03-11-2010 colon polyps headaches hypertension atrial flutter/fibrillation hypothyroidism Surgical History Surgery Date(Month/Year) sinus surgery cardiac pacemeker 06/09/2009 thyroidectomy skin cancer removals cardiac ablation 2011
--- OUTSIDE RECORDS SUMMARY | 2025-05-20 16:21 | XMS_ITS | Encounter Summary ---
Author Organization Address [address] [place] [address] Care Team Providers Care Rotational Moulding Operator Name Role Phone Royal Aguila MD Primary Care Provider [phone] Encounter Details Date Type Department Care Team (Late st Contact Info) Description 05/20/2025 Telephone [facility] - [facility] [address] [facility] [address] [place] [phone] William Damon MD [address] [place] [address] [place] [phone] Social History Tobacco Use Types Packs/Day Years [...] on file documented as of this encounter Progress Notes * Nancy Preciado [place] - 05/20/2025 2:47 PM EST Called Nahed and advised the Device is MRI compatible, the leads are not. Up to the MRI facility ifthey do it or not. She had read that during an MRI, it need to be pit linda safe mode , advised a rep would be there for that * Kim Table - 05/20/2025 2:06 PM EST Patient's daughter Nahed called and stated that the patient has a pacemaker, and he was told he needs to have a MRI done at [facility]. She said she would like to make sure it is okay forhim to have the MRI with his pacemaker, and she also wants to know if the patient should have the MRI done at [facility] instead. Nahed would like a call back at [phone]. documented in this encounter Plan of Treatment Upcoming Encounters Date Type Department Care Team (Late st Contact Info) Description 09/07/2025 1:00 PM EDT Ancillary Procedure [facility] - [address] [place] [address] documented as of this encounter Visit Diagnoses Not on filedocumented in this encounter Care Teams Rotational Moulding Operator Relationship Specialty Start Date End Date Mingo, MD Royal [address] [place] [address] Dr [address] [facility] [place] [address] PCP - General Internal Medicine 05/15/20 documented as of this encounter
== END 2025-05-20 15:11 | disposition home or self-care (01) ==
LOC: HO.HMCH 13:43
PROVIDERS: PCP Internal Medicine; Visit Provider Internal Medicine
DX: M25.561 Pain in right knee (principal)

== ENCOUNTER 2025-05-20 15:19 | Emergency (ER) | payer MEDICARE, SELFPAY ==
--- NOTE | ~2025-05-20 | US_ITS ---
CLINICAL HISTORY: swelling. DVT? Venous duplex ultrasound right lower extremity Comparison: US/SR - US LOWER EXTREMITY VEINS BILATERAL - 07/05/22 08:38 EST US/SR - US LOWER EXTREMITY VEINS LIMITED RIGHT - 05/04/2025 10:49 AM EST Findings: The visualized deep veins are fully compressible with normal Doppler color flow and spectral tracings. No popliteal cyst. IMPRESSION: 1. Negative for right lower extremity deep vein thrombosis. This document has been electronically signed by: Essie Bojorquez MD on 05/20/2025 20:00:48
--- NOTE | ~2025-05-20 | XR_ITS ---
CLINICAL HISTORY: leg swelling 2 view right tibia-fibula Comparison: None provided Findings No fractures or dislocations. No joint effusion. No significant arthritic change. No radiopaque foreign body. Arterial vascular calcifications are present. IMPRESSION: 1. Normal right tibia-fibula This document has been electronically signed by: Essie Bojorquez MD on 05/20/2025 18:50:22
--- NOTE | ~2025-05-20 | XR_ITS ---
CLINICAL HISTORY: swelling 4 view right knee Comparison: CR/SR - XR KNEE 1-2 VIEWS RIGHT - 05/04/2025 10:19 AM EST Findings: No fractures or dislocations. Tricompartmental periarticular osteophyte formation, indicating osteoarthritis. Small knee joint effusion. No radiopaque foreign body. IMPRESSION: 1. No acute findings. This document has been electronically signed by: Essie Bojorquez MD on 05/20/2025 18:53:27
--- NOTE | ~2025-05-20 | XR_ITS ---
CLINICAL HISTORY: cough 1 view chest x-ray. Comparison: None provided. Findings: 2 cm left perihilar density present. No focal consolidation identified within the right lung. No pneumothorax or pleural effusion visualized. Heart size is borderline enlarged. Left subclavian cardiac pacemaker device in place. Impression: 1. Borderline cardiomegaly with a small 2 cm left perihilar density. This may represent prominence of the normal bronchovascular structures related to overlapping ribs at this site. A small focus of atelectasis or infectious/inflammatory infiltrates is not excluded. This document has been electronically signed by: Hemant Grewal MD on 05/20/2025 21:34:23
[2025-05-20 15:45] VITALS: BP 151/81; PULSE 64; RESP 20; TEMP 36.2; O2SAT 94; BMI 29.8
--- NOTE | 2025-05-20 15:56 | ED.GENADULT ---
HPI - General Adult General Chief complaint: Extremity Injury, Lower Stated complaint: right knee pain and redness sent by dr Lopez Seen by Provider: 05/20/25 20:42 Source: patient Limitations: no limitations History of Present Illness ED Provider: Sue Burnett PA-C HPI narrative: 84-year-old male with a history of hypertension, hypothyroidism, hyperlipidemia, sick sinus syndrome status post pacer on warfarin, known osteoarthritis, who presents with ongoing right knee pain. Patient states he exercises on a regular basis. While at the gym 2 weeks ago, on a stationary bike, he developed acute right knee pain and swelling. Patient has been seen by his primary care, there was concern for potential infection, he just finished a course of antibiotics. Patient is here due to ongoing swelling and pain of the right lower extremity and knee. Denies fever. Denies inability to flex or extend the knee. Denies current redness or warmth of the knee. Patient's daughter also states that he has had an ongoing cough for weeks, they are requesting a chest x-ray. Related Data Home Medications ?Medication ?Instructions ?Recorded ?Confirmed acetaminophen 500 mg tablet 1,000 mg PO Q6H PRN 05/04/25 05/06/25 (Tylenol Extra Strength) Previous Rx's ?Medication ?Instructions ?Recorded warfarin 7.5 mg tablet (Jantoven) See Rx Instructions PO .QD 90 days 12/05/23 #90 tabs levothyroxine 75 mcg tablet 75 mcg PO QAM #90 tabs 08/25/24 furosemide 20 mg tablet 20 mg PO DAILY 90 days #90 tabs 10/20/24 warfarin 10 mg tablet (Jantoven) 10 mg .Route .COMPLEX #140 caps 12/30/24 simvastatin 20 mg tablet 20 mg PO BEDTIME #90 tabs 02/13/25 doxepin 3 mg tablet (Silenor) 3 mg PO BEDTIME PRN sleep #30 tabs 04/03/25 metoprolol succinate 50 mg 50 mg PO DAILY #90 tabs 04/03/25 tablet,extended release 24 hr diclofenac sodium 1 % topical gel 2 g topical TID PRN pain #100 grams 05/04/25 (Voltaren Arthritis Pain) lidocaine 3 % topical cream 1 appl topical TID PRN pain #28.35 05/04/25 grams cephalexin 500 mg capsule 500 mg PO QID #56 caps 05/06/25 benzonatate 200 mg capsule 200 mg PO TID PRN cough #10 caps 05/20/25 prednisone 20 mg tablet 40 mg (2 x 20 mg) PO DAILY #10 tabs 05/20/25 Allergies Allergy/AdvReac Type Severity Reaction Status Date / Time doxycycline (Doxycycline) Allergy Severe HIVES Verified 05/20/25 15:48 lisinopril Allergy Severe RASH Verified 05/20/25 15:48 Review of Systems Review of Systems: Yes all other systems are reviewed and are negative Constitutional: Constitutional: Denies fatigue and Denies fever(s) Cardiovascular: Cardiovascular: Denies chest pain and Denies dyspnea Respiratory: Respiratory: Denies chest congestion, Reports cough, Denies dyspnea and Denies wheezing Gastrointestinal: Gastrointestinal: Denies abdominal pain Musculoskeletal: Musculoskeletal: Reports arthralgias and Reports joint swelling Integumentary/Breasts: Skin/Breast: Denies erythema and Denies skin swelling Endocrine: Endocrine: Denies fatigue Allergic/Immunologic: Allergic/Immunologic: Denies wheezing PMFSH Past Medical History Attestation statement: The following information was validated with the patient. Medical History Insomnia COVID-19 virus infection Hyperparathyroidism Basal cell carcinoma of skin Tubular adenoma of colon Sick sinus syndrome Hypercholesterolemia Hypothyroid Atrial fibrillation Monoclonal paraproteinemia Hypertension Surgical History History of parathyroidectomy Family History Family History Father Past heart attack Social History Social History Housing: House Alcohol intake: current Alcohol intake frequency: holidays/special occasions only Alcohol type: wine Patient Tobacco Use Status: Never used Tobacco e-Cigarette/Vaping Use: Never Used Second Hand Smoke Exposure: No service: Yes Current occupational status: retired Current occupational exposures/hazards: No Cognitive needs: No Hearing needs: No Vision needs: Yes Physical Exam ED Vital Signs: Vital Signs - 24 hr 05/20/25 15:45 05/20/25 20:52 Temperature 97.1 F 97.7 F Pulse Rate 64 70 Respiratory Rate 20 16 Blood Pressure 151/81 H 170/85 H Pulse Oximetry 94 98 BMI result Body Mass Index 29.8 Const Other: Alert well-appearing Orientation/consciousness: patient oriented x3 Resp Other: Lungs clear to auscultation Effort & Inspection: normal respiratory effort Cardio Other: Normal peripheral perfusion, bilateral peripheral edema noted Skin Other: Warm dry no rash Neuro General: patient oriented x3, gait normal, no focal motor deficits and CN's II-XI intact bilaterally Extrem Other: Full flexion and extension of the right knee, there was no overlying erythema or warmth, patient is ambulatory, the right lower extremity is somewhat larger versus the left Psych Other: Cooperative Course Course Course Narrative: RME: 84-year-old male presents to the ED for evaluation for right knee pain swelling. Patient was sent from primary care provider for IV antibiotics possible MRI and a knee tap. Patient states right knee pain ever since riding a bike and heard a pop and right knee. Patient was placed on antibiotics by primary care provider for the was no relief patient is sent to the ED. Patient has had normal x-ray of ultrasound of right lower extremity Medications Administered Discontinued Medications Generic Name Dose Route Start Last Admin Trade Name Freq PRN Reason Stop Dose Admin Benzonatate 200 mg 05/20/25 21:18 05/20/25 21:27 Benzonatate 100 Mg Capsule PO 05/20/25 21:19 200 mg ONCE ONE Administration Medical Decision Making Medical Decision Making [facility] Narrative: 84-year-old male with a history of hypertension, hypothyroidism, hyperlipidemia, sick sinus syndrome status post pacer on warfarin, known osteoarthritis, who presents with ongoing right knee pain. Patient states he exercises on a regular basis. While at the gym 2 weeks ago, on a stationary bike, he developed acute right knee pain and swelling. Patient has been seen by his primary care, there was concern for potential infection, he just finished a course of antibiotics. Patient is here due to ongoing swelling and pain of the right lower extremity and knee. Denies fever. Denies inability to flex or extend the knee. Denies current redness or warmth of the knee. Patient's daughter also states that he has had an ongoing cough for weeks, they are requesting a chest x-ray. Problem: Age, known arthritis, use of anticoagulation History: Per patient I have considered the following differential diagnoses: Fracture, dislocation, septic joint, hemarthrosis, cellulitis, gout, DVT , viral syndrome, cough induced by NICHOLAS inhibitor, pneumonia Plan: Screening labs including inflammatory markers ordered from triage. X-ray of the tib-fib knee an ultrasound of lower extremity ordered as well. No DVT, the x-ray reveals significant arthritic changes with a small effusion. There are not exam findings consistent with a septic joint. We will send the patient with a contact for our orthopedic service, he most certainly could benefit from cortisone joint injection. In the meantime starting him on steroid to be used as an anti-inflammatory. He is currently using Tylenol with some relief of symptoms. In regard to the cough, this has been ongoing for weeks, likely viral in nature he is not on an Nicholas, chest x-ray negative. I have independently reviewed the following tests: Labs: CRP 0.66, ESR 20, no leukocytosis, not anemic, no electrolyte abnormality, Ultrasound right lower extremity: Findings: The visualized deep veins are fully compressible with normal Doppler color flow and spectral tracings. No popliteal cyst. IMPRESSION: 1. Negative for right lower extremity deep vein thrombosis. X-ray right knee:Findings: No fractures or dislocations. Tricompartmental periarticular osteophyte formation, indicating osteoarthritis. Small knee joint effusion. No radiopaque foreign body. IMPRESSION: 1. No acute findings. X-ray tib-fib: indings No fractures or dislocations. No joint effusion. No significant arthritic change. No radiopaque foreign body. Arterial vascular calcifications are present. IMPRESSION: 1. Normal right tibia-fibula Chest x-ray:indings: 2 cm left perihilar density present. No focal consolidation identified within the right lung. No pneumothorax or pleural effusion visualized. Heart size is borderline enlarged. Left subclavian cardiac pacemaker device in place. Impression: 1. Borderline cardiomegaly with a small 2 cm left perihilar density. This may represent prominence of the normal bronchovascular structures related to overlapping ribs at this site. A small focus of atelectasis or infectious/inflammatory infiltrates is not excluded. Differential Diagnosis Differential Diagnoses: The differential diagnosis associated with the presentation includes See [facility] Admission/Observation Consideration of admission/observation: Escalation of care including admission/observation considered Not applicable Lab Data [facility] Lab Attestation statement: I reviewed the patient's lab results. 05/20/25 17:37 05/20/25 17:37 Labs: Lab Results 05/20/25 Range/Units 17:37 WBC 7.4 (4.8-10.8) X10*3/uL RBC 4.09 L (4.60-5.80) X10*6/uL Hgb 12.8 L (14.0-18.0) g/dl Hct 38.5 L (42.0-52.0) % MCV 94.1 (80.0-98.0) fL MCH 31.3 (27.0-33.0) pg MCHC 33.2 (31.0-36.0) g/dl RDW 13.4 (11.0-16.0) % Plt Count 168 (160-400) X10*3/uL MPV 9.0 L (9.4-12.4) fL Immature Gran % (Auto) 3.3 H (0.0-0.4) % Neut % (Auto) 59.6 (45-73) % Lymph % (Auto) 19.5 L (20-40) % Twiggs % (Auto) 8.4 (2-11) % Eos % (Auto) 8.5 H (0-4) % Baso % (Auto) 0.7 (0-2) % Lymph # (Auto) 1.4 (1.2-4.9) X10*3/uL Twiggs # (Auto) 0.6 (0.1-1.2) X10*3/uL Eos # (Auto) 0.6 H (0.0-0.4) X10*3/uL Baso # (Auto) 0.1 (0.0-0.2) X10*3/uL Abs Immat Gran (auto) 0.24 H (0.00-0.03) X10*3/uL Absolute Neuts (auto) 4.4 (2.0-8.3) x10*3/uL Absolute Nucleated RBC 0.000 (0.0-0.012) X10*3/uL Nucleated RBC % (auto) 0.0 (0.0-0.2) /100WBC ESR 20 H (0-15) MM/HR PT 43.3 H (11.2-13.5) SEC INR 3.7 H (0.9-1.1) APTT 36.1 H (26.7-34.1) SEC Sodium 140 (135-145) mmol/L Potassium 4.6 (3.3-5.1) mmol/L Chloride 105 (96-108) mmol/L Carbon Dioxide 29 (22-29) mmol/L Anion Gap 11 L (12-20) BUN 23 H (9-16) mg/dL Creatinine 1.05 (0.5-1.4) mg/dL Estim Creat Clear Calc 61.7 Estimated GFR > 60 Random Glucose 101 (60-115) mg/dL Calcium 8.9 (8.4-10.2) mg/dL Total Bilirubin 0.4 (0.0-1.0) mg/dL AST 39 H (5-37) U/L ALT 43 H (0-40) U/L Alkaline Phosphatase 81 (39-117) U/L C-Reactive Protein 0.66 H (< or = 0.50) mg/dL Total Protein 7.8 (6.5-8.0) g/dL Albumin 4.6 (3.5-5.0) g/dL Radiology Impression Discussion of test interpretation with radiology: I have reviewed the radiologist's reading. Discharge Plan Discharge Clinical Impression: Knee osteoarthritis, Cough, Effusion of knee joint Patient Disposition: Home, Self-Care Instructions: Osteoarthritis (ED), Swollen Knee Joint (ED) Additional Instructions: Your screening labs were overall normal. The ultrasound of the right lower extremity was negative for a clot in the leg. The x-ray revealed you have a small joint effusion secondary to significant arthritis. See home care instructions. The use of a compression sleeve will offer stability of the knee joint and help with your pain. You could also benefit from a cortisone joint injection, I am providing you with the contact for our orthopedic service. In the meantime, continue to take [id number]-nozytck Tylenol 1000 mg every 6 hours for your pain. We are also placing you on a steroid, this is an anti-inflammatory, take the prednisone as directed, take this medication in the morning with food. The chest x-ray was also clear, we are finding this season that the respiratory viruses are causing a prolonged phase of a persistent cough, you may have symptoms for 6-8 weeks. Use the Benzonate as needed for your cough. Continue to follow up with your primary care provider as needed. Call the orthopedic service tomorrow to schedule an appointment. Prescriptions: New prednisone 20 mg tablet 40 mg PO DAILY Qty: 10 0RF benzonatate 200 mg capsule 200 mg PO TID PRN (Reason: cough) Qty: 10 0RF No Action warfarin [Junto] 7.5 mg tablet See Rx Instructions PO .QD 90 Days Qty: 90 3RF Protocol: Dose Management Condition: Sunday (Week One) Dose/Route: 10 mg Instruction: 1 x 10 mg tablet Condition: Sunday Dose/Route: 10 mg Instruction: 1 x 10 mg tablet Condition: Sunday Dose/Route: 10 mg Instruction: 1 x 10 mg tablet Condition: Sunday Dose/Route: 10 mg Instruction: 1 x 10 mg tablet Condition: Dose/Route: 10 mg Instruction: 1 x 10 mg tablet Condition: Sunday Dose/Route: 10 mg Instruction: 1 x 10 mg tablet Condition: Sunday Dose/Route: 10 mg Instruction: 1 x 10 mg tablet Condition: Sunday ( Two) Dose/Route: 10 mg Instruction: 1 x 10 mg tablet Condition: Sunday Dose/Route: 10 mg Instruction: 1 x 10 mg tablet Condition: Sunday Dose/Route: 10 mg Instruction: 1 x 10 mg tablet Condition: Sunday Dose/Route: 10 mg Instruction: 1 x 10 mg tablet Condition: Dose/Route: 10 mg Instruction: 1 x 10 mg tablet Condition: Sunday Dose/Route: 10 mg Instruction: 1 x 10 mg tablet Condition: Sunday Dose/Route: 10 mg Instruction: 1 x 10 mg tablet Protocol Text: Adjustment Start Date: Sunday05/19/25 INR Value: 3.1 INR Date: 05/19/25 Recheck Date: 06/23/25 Rx Instructions: 7.5 mg QD orally QD; levothyroxine 75 mcg tablet 75 mcg PO QAM Qty: 90 2RF furosemide 20 mg tablet 20 mg PO DAILY 90 Days Qty: 90 3RF warfarin [Junto] 10 mg tablet 10 mg .ROUTE .COMPLEX Qty: 140 3RF Protocol: Dose Management Condition: Sunday (Week One) Dose/Route: 10 mg Instruction: 1 x 10 mg tablet Condition: Sunday Dose/Route: 10 mg Instruction: 1 x 10 mg tablet Condition: Sunday Dose/Route: 10 mg Instruction: 1 x 10 mg tablet Condition: Sunday Dose/Route: 10 mg Instruction: 1 x 10 mg tablet Condition: Dose/Route: 10 mg Instruction: 1 x 10 mg tablet Condition: Sunday Dose/Route: 10 mg Instruction: 1 x 10 mg tablet Condition: Sunday Dose/Route: 10 mg Instruction: 1 x 10 mg tablet Condition: Sunday (Week Two) Dose/Route: 10 mg Instruction: 1 x 10 mg tablet Condition: Sunday Dose/Route: 10 mg Instruction: 1 x 10 mg tablet Condition: Sunday Dose/Route: 10 mg Instruction: 1 x 10 mg tablet Condition: Sunday Dose/Route: 10 mg Instruction: 1 x 10 mg tablet Condition: Dose/Route: 10 mg Instruction: 1 x 10 mg tablet Condition: Sunday Dose/Route: 10 mg Instruction: 1 x 10 mg tablet Condition: Sunday Dose/Route: 10 mg Instruction: 1 x 10 mg tablet Protocol Text: Adjustment Start Date: Sunday05/19/25 INR Value: 3.1 INR Date: 05/19/25 Recheck Date: 06/23/25 Rx Instructions: 10 mg X 6-7 DAYS/ WEEK WARFARIN DOSE PER INR simvastatin 20 mg tablet 20 mg PO BEDTIME Qty: 90 0RF metoprolol succinate 50 mg tablet extended release 24 hr 50 mg PO DAILY Qty: 90 2RF doxepin [Silenor] 3 mg tablet 3 mg PO BEDTIME PRN (Reason: sleep) Qty: 30 0RF acetaminophen [Tylenol Extra Strength] 500 mg tablet 1,000 mg PO Q6H PRN diclofenac sodium [Voltaren Arthritis Pain] 1 % gel 2 g topical TID PRN (Reason: pain) Qty: 100 0RF Rx Instructions: apply to single knee, ankle, foot; for foot includes sole/toes/top of foot lidocaine 3 % cream 1 appl topical TID PRN (Reason: pain) Qty: 28.35 0RF cephalexin 500 mg capsule 500 mg PO QID Qty: 56 0RF Referrals: Lance Valerio MD [Physician, Orthopedics] Referral Note: Significant arthritis right knee with effusion Interventions: ED Discharge Assessment Last Done: 05/20/25 22:33 Discharge Date/Time: 05/20/25 22:34 Print Language: Maldivian
[2025-05-20 17:42] LABS: MANUAL DIFF FLAG NO
[2025-05-20 17:43] LABS: Red Blood Count 4.09 X10*6/uL (4.60-5.80); White Blood Count 7.4 X10*3/uL (4.8-10.8)
[2025-05-20 17:44] LABS: Hematocrit 38.5 % (42.0-52.0); Hemoglobin 12.8 g/dl (14.0-18.0); Imm Gran Abs Auto 0.24 X10*3/uL (0.00-0.03); Imm Gran Pct Auto 3.3 % (0.0-0.4); Lymphocytes Absolute Auto 1.4 X10*3/uL (1.2-4.9); Mean Corpuscular HGB Conc 33.2 g/dl (31.0-36.0); Mean Corpuscular Hemoglobin 31.3 pg (27.0-33.0); Mean Corpuscular Volume 94.1 fL (80.0-98.0); NRBC Abs Auto 0.000 X10*3/uL (0.0-0.012); NRBC Pct Auto 0.0 /100WBC (0.0-0.2); Platelet Count 168 X10*3/uL (160-400)
[2025-05-20 17:52] LABS: INTERNATIONAL NORM RATIO 3.7 (0.9-1.1); Prothrombin Time 43.3 SEC (11.2-13.5)
[2025-05-20 17:54] LABS: Partial Thromboplastin Time 36.1 SEC (26.7-34.1)
[2025-05-20 17:58] LABS: Alanine Aminotransferase 43 U/L (0-40); Albumin Level 4.6 g/dL (3.5-5.0); Alkaline Phosphatase 81 U/L (39-117); Anion Gap 11 (12-20); Aspartate Amino Transferase 39 U/L (5-37); Blood Urea Nitrogen 23 mg/dL (9-16); Calcium 8.9 mg/dL (8.4-10.2); Carbon Dioxide 29 mmol/L (22-29); Chloride 105 mmol/L (96-108); Creatinine Clr Calc Pharmacy 61.7; Estimated Glomerular Filt Rate > 60; Potassium 4.6 mmol/L (3.3-5.1); Sodium 140 mmol/L (135-145); Total Protein 7.8 g/dL (6.5-8.0)
[2025-05-20 18:30] LABS: Erythrocyte Sedimentation Rate 20 MM/HR (0-15)
[2025-05-20 20:52] VITALS: BP 170/85; PULSE 70; RESP 16; TEMP 36.5; O2SAT 98
[2025-05-20 22:33] VITALS: BP 170/85; PULSE 70; RESP 16; TEMP 36.5; O2SAT 98
== END 2025-05-20 22:34 | disposition home or self-care (01) ==
PROVIDERS: Physician Assistant; Emergency Provider Emergency Medicine; PCP Internal Medicine
DX: M17.11 Unilateral primary osteoarthritis, right knee (principal); M25.461 Effusion, right knee; M79.604 Pain in right leg; I10 Essential (primary) hypertension; Z79.01 Long term (current) use of anticoagulants; Z79.899 Other long term (current) drug therapy; Z95.0 Presence of cardiac pacemaker
CPT/HCPCS: 36415; 71045; 73564; 73590; 80053; 85025; 85610; 85652; 85730; 86140; 93971; 99212; 99283

== ENCOUNTER → 2025-05-20 18:10 | Outpatient (BNV) | payer MEDICARE, SELFPAY | PROVIDERS: PCP Internal Medicine; Visit Provider Radiology Diagnostic Radiology | DX: R22.41 Localized swelling, mass and lump, right lower limb (principal) | CPT/HCPCS: 71045; 73564; 73590; 93971 ==

== ENCOUNTER 2025-06-03 14:49 | Outpatient (AMB) | payer MEDICARE, SELFPAY ==
--- NOTE | 2025-06-03 15:03 | A.OFFPC_ITS ---
Vital Signs 06/03/25 15:05 Height 5 ft 11.65 in Weight 225 lb BMI 30.8 BP 156/90 H Blood Pressure Location Lt brachial Position Sitting Respiration 18 Pulse 58 Pulse Source Pulse Oximeter Temp 97.7 F Temp Source Temporal Artery Scan Pulse Oximetry (%) 99 Oxygen Delivery Method Room Air Intake Visit Reasons: Follow Up Provider Relations Specialist Required: No Accompanied by: Spouse Allergies doxycycline (Doxycycline) Allergy (Severe, Verified 06/03/25 15:04) HIVES lisinopril Allergy (Severe, Verified 06/03/25 15:04) RASH Medication List - Last Reconciled 06/03/25 by Daniel Ann MD acetaminophen (Tylenol Extra Strength) 1,000 mg PO Q6H PRN benzonatate 200 mg PO TID PRN diclofenac sodium 1% (Voltaren Arthritis Pain) 2 grams topical TID PRN doxepin (Silenor) 3 mg PO BEDTIME PRN furosemide 20 mg PO DAILY 90 days levothyroxine 75 mcg PO QAM metoprolol succinate ER 50 mg PO DAILY simvastatin 20 mg PO BEDTIME warfarin (Jantoven) See Protocol 10 mg X 6-7 DAYS/ WEEK WARFARIN DOSE PER INR Tobacco use date assessed: 05/20/25 Fall risk assessment: No Falls in past year Last assessed Fall Risk: 06/03/25 Dental Screening Dental Screen Date: 04/03/25 HPI HPI Comments History of Present Illness Details The patient is an 84 year old male presenting with follow-up for right knee pain. He was seen in our clinic 05/04 for right knee pain. HE was suspected to have septic arthritis as his knee was warm to the touch, erythermatos and he was in sever pain. The patient had bilateral LE edema and LE US were negative for DVT. He completed 2 weeks of cephalexin which provided minimal relief. On 05/20 the patient was re-evaluated in our clinic and he was still having pain in his knee. He was referred to the ED who diagnosed the patient with arthritis and he was prescribed prednisone 40 mg and he was referred to Ortho with an appointment scheduled on 07/01 for Intra articular shots. His Knee Xray No fractures or dislocations. Tricompartmental periarticular osteophyte formation, indicating osteoarthritis. Small knee joint effusion. No radiopaque foreign body. The patient reports improvement of symptoms after prednisone which provided some relief but he continues to experience pain. [facility] Medical History Insomnia COVID-19 virus infection Hyperparathyroidism Basal cell carcinoma of skin Tubular adenoma of colon Sick sinus syndrome Hypercholesterolemia Hypothyroid Atrial fibrillation Monoclonal paraproteinemia Hypertension Surgical History History of parathyroidectomy Family History Father Past heart attack Social History Housing: House Alcohol intake: current Alcohol intake frequency: holidays/special occasions only Alcohol type: wine Patient Tobacco Use Status: Never used Tobacco e-Cigarette/Vaping Use: Never Used Second Hand Smoke Exposure: No service: Yes Current occupational status: retired Current occupational exposures/hazards: No Cognitive needs: No Hearing needs: No Vision needs: Yes Questionnaire Thrive Questionnaire Date Thrive assessed: 04/03/25 I am a: Patient What is your living situation today?: I have a steady place to live Within the past 12 months, did the food you bought not last and you didn't have the money to get more?: I choose not to answer this question Within the past 12 months, did you worry whether your food would run out before you got money to buy more?: I choose not to answer this question Do you have trouble paying for medicines?: No Do you have trouble getting transportation to medical appointments?: No Do you have trouble paying your heating and electricity bill?: No Do you have trouble taking care of your child, family member or friend?: No Do you have trouble with day-to-day activities such as bathing, preparing meals, shopping, managing finances, etc.?: No Are you currently unemployed and looking for a job?: I choose not to answer this question Are you interested in more education?: No Please select the resources that you would like help with: None Currently or been in a relationship where the following occur: I choose not to answer THRIVE Score: 0 YAMEL-7 AMB Questionnaire YAMEL-7 Date YAMEL - 7 assessed: 10/02/24 Source: Developed by Drs. Ranjit Hancock, Nancy B.W. Franki Rosales and colleagues, with an educational fawad from [employer] and [employer]. Review of Systems Const Details: As per HPI. Physical exam (Primary Care) Vital Signs: Last Vital Signs Temp 97.7 F 06/03/25 15:05 Pulse 58 06/03/25 15:05 Resp 18 06/03/25 15:05 BP 156/90 H 06/03/25 15:05 Pulse Ox 99 06/03/25 15:05 Oxygen Delivery Method Room Air 06/03/25 15:05 BMI result Body Mass Index 30.8 Tobacco/Smoking Status: Tobacco use Status Tobacco use date assessed 05/20/25 06/03/25 15:15 Patient Tobacco Use Status Never used Tobacco 06/03/25 15:15 e-Cigarette/Vaping Use Never Used 06/03/25 15:15 Thrive Assessment: Date of Thrive Assessment Date Thrive assessed 04/03/25 06/03/25 15:15 Currently or been in a relationship where the following occur: I choose not to answer Const Other: Pertinent findings are in BOLD GENERAL APPEARANCE NAD, activity normal for age, well developed/ well nourished, no cyanosis, pallor, or diaphoresis. EYES lids/conjunctiva normal. EARS/NOSE/THROAT Mucous membranes moist, nares normal, lips/teeth normal uvula midline without oral pharyngeal erythema, exudate or swelling TMs normal bilaterally. No lymphangitis/lymphedema. HEAD/NECK normocephalic atraumatic, no facial trauma, neck is supple. RESPIRATORY respiratory effort normal, speaks in full sentences, no tripod position, no accessory muscle use. Lungs clear to auscultation without rhonchi, wheezes, rales CARDIAC Regular rate and rhythm, no edema. ABDOMINAL Soft, ND/NT. No evidence of fluid wave. No pulsatile masses on exam, rebound tenderness, Wilkerson sign or pain over Mcburney's point. MUSCLES/EXTREMITIES No abnormal range of motion, no swelling. Right knee swelling improved since last time. Right knee with mild erythema. RLE with +2 edema. SKIN Warm, pink and dry. No rashes, dermatoses, petechiae or lesions. NEUROLOGICAL Speech is clear and appropriate. Normal level of consciousness. Gait and coordination are normal. 5/5 strength in all extremities. PSYCH Normal mood and affect. Judgement/competence is appropriate Coding Level of Care Code Est Pt Level 3 (40380) Diagnoses Acute pain of right knee M25.561 Chronicity: acute Time Spent (min) 20 Assessment & Plan Assessment & Plan (1) Knee pain, right: Code(s): M25.561 - Pain in right knee Category: Medical Qualifiers: Chronicity: acute Qualified Code(s): M25.561 - Pain in right knee Plan: - The patient's right knee pain is attributed to arthritis, an inflammatory condition, given his improvement with steroids and lack of response to antibiotics. - More urgent causes such as a blood clot and infection have been reasonably ruled out with two negative US. - The plan is for the patient to continue conservative management with rest and ice applications to the knee. - He is advised to use Tylenol for pain and to apply topical Voltaren gel. - The patient will follow up with an orthopedic surgeon on July 01 for further evaluation, which may include an MRI or a cortisone injection. Plan I discussed with the patient that his symptoms are most consistent with an inflammatory process like arthritis, especially given his improvement with steroids and lack of response to antibiotics. I reassured him that more serious conditions like a blood clot or a significant infection have been ruled out. I advised conservative management with rest, ice, Tylenol, and topical Voltaren gel until he can be seen by the range management specialist. We reviewed the plan to follow up with the orthopedic surgeon on July 01 for further evaluation and potential interventions like a cortisone injection or an MRI.
[2025-06-03 15:05] VITALS: BP 156/90; PULSE 58; RESP 18; TEMP 36.5; O2SAT 99; BMI 30.8
--- OUTSIDE RECORDS SUMMARY | 2025-06-03 19:46 | XMS_ITS | Patient Health Record ---
Author Organization [facility] Address [address] [place] [address] Care Team Providers Care Veneer Drier Tailer Name Role Phone Royal Aguila MD Primary Care Provider Emre Orosco Jr Unavailable [phone] Allergies Allergen (clinical drug ingredient) Drug/Non [...] Status Risk Notes Problem Colon cancer screening (498418757) Colon cancer screening (Z12.11) Active confirmed Problem Rectal bleeding (00281057) Rectal bleeding (K62.5) Active confirmed Problem Long-term current use of anticoagulant (755881818) residential (current) use of anticoagulants (Z79.01) Active confirmed Problem Hypertension (68547455) Hypertension (I10) Active confirmed Problem Diverticulosis of colon (finding) (749016991) Diverticulosis of colon (without mention of hemorrhage) (K57.30) Active confirmed Plan Of Treatment Future Test Test Name Order Date COLONOSCOPY 06/23/2015 Insurance Providers Payer Name Payer Address Payer Phone Subscriber Number Group Number Insured Name Patient Relationship to Insured Coverage Start Date Coverage End Date MEDICARE OF [place] [address] [place] [address] [id number] ILAN DUDLEY Self - patient is the insured [employer]EX ATTN CLAIMS [address] [place] [address] [id number] ILAN DUDLEY Self - patient is the insured Medical (General) History Medical History History ICD Code colonoscopy 03-11-2010 colon polyps headaches hypertension atrial flutter/fibrillation hypothyroidism Surgical History Surgery Date(Month/Year) sinus surgery cardiac pacemeker 06/09/2009 thyroidectomy skin cancer removals cardiac ablation 2011
--- OUTSIDE RECORDS SUMMARY | 2025-06-03 19:46 | XMS_ITS | Patient Health Record ---
Author Organization [facility] Address [address] [place] [address] Care Team Providers Care Financial Assistant Name Role Phone Royal Aguila Primary Care Provider Smooth Corbett Unavailable [phone] Reason For Referral No Information Medications Medication [...] W/U Status Risk Notes Problem Plantar wart (75134600) Plantar wart (B07.0) Active confirmed Plan Of Treatment Pending Test Test Name Order Date [id number] Destruction, 1-14 10/17/2016 Insurance Providers Payer Name Payer Address Payer Phone Subscriber Number Group Number Insured Name Patient Relationship to Insured Coverage Start Date Coverage End Date [facility] [employer] [address] [place] [phone] [id number] rEasmo Escudero Self - patient is the insured 4 [employer] [address] [place] [address] [id number] ChamisalErasmo ulloa Self - patient is the insured 4 Medical (General) History Medical History History ICD Code Back,Hip,and Knee pain CAD (Cholesterol) Cancer Measles Mumps Chicken pox Heart disease - Pacemaker High blood pressure Thyroid Surgical History Surgery Date(Month/Year) cardiac pacemeker 2008
--- OUTSIDE RECORDS SUMMARY | 2025-06-03 19:46 | XMS_ITS | Clinical Summary ---
Author Organization [address] [place] [address] [place] [phone] Phone Care Team Providers Care Locker Room Supervisor Name Role Phone Royal Aguila MD Primary Care Provider [phone] Allergies Active Allergy Reactions Criticality Noted Date [...] see if that helps. Sinus node dysfunction 03/26/2023 Overview (05/23/2024): Chronic [...] Type Department Care Team Description 05/20/2025 Telephone [facility] Cardiology [facility] [address] [place] [phone] William Damon MD 04/13/2025 9:25 AM EDT Office Visit [facility] Cardiology [facility] [address] [place] [phone] William Damon MD Sinus node dysfunction (CMS/HCC V24, CMS/HCC V28) (Primary Dx); Chronic heart failure with preserved ejection fraction (HFpEF) (CMS/[facility] V24, CMS/HCC V28) from Last 3 Months Social History Tobacco [...] on file Sexual Orientation Not on file Last Filed Vital Signs Vital Sign Reading [...] Description 09/07/2025 1:00 PM EDT Ancillary Procedure [facility] [address] [place] [address] Health Maintenance Due Date Last [...] this topic Medical Devices Implanted Type Area Hookman Device Identifier Shelf Expiration Date Model / Serial / Lot [facility] Assurity Mri [id number] Implanted:04/2020 (Quantity not on file) Cardiac Pacemaker [employer]- [employer] MRI [id number] / [id number] / Procedures Procedure Name Priority Date/Time Associated Diagnosis Comments ECG 12-LEAD Routine 04/13/2025 10:02 AM EDT Sinus node dysfunction (CMS/HCC V24, CMS/HCC V28) EXTERNAL CLINICAL LAB Routine 03/16/2025 9:11 AM EDT from Last 3 Months Results * ECG 12 lead (04/13/2025 10:02 AM EDT) Ventricular Rate ECG 67 BPM GEMUSE Atrial Rate 241 BPM GEMUSE QRS Duration 194 ms GEMUSE Q-T Interval 468 ms GEMUSE QTc 494 ms GEMUSE R [place] 115 degrees GEMUSE T [place] -89 degrees GEMUSE ECG Interpretation Atrial fibrillation Ventricular-pac ed rhythm with occasional Premature ventricular complexes Abnormal ECG When compared with ECG of 26-AUG-2009 13:41, Electronic ventricular pacemaker has replaced Atrial fibrillation Confirmed by Seth DAMON JOHN ([id number]) on 04/13/2025 10:54:54 AM GEMUSE 04/13/2025 9:35 AM EDT 04/13/2025 10:54 AM EDT William Damon MD ECG ORDERABLES Edited Result - Final GEMUSE * External clinical lab (03/16/2025 9:11 AM EDT) Historical Provider LAB BLOOD ORDERABLES Kelsey l Result from Last 3 Months Insurance MEDICARE [facility] [[email or web address]] Care Teams Locker Room Supervisor Relationship Specialty Start Date End Date Royal Aguila MD [address] [place] [address] [address] [facility] [place] [address] PCP - General Internal Medicine 05/15/20
== END 2025-06-03 15:32 | disposition home or self-care (01) ==
LOC: HO.HMCH 14:50
PROVIDERS: PCP Internal Medicine; Visit Provider Internal Medicine
DX: M25.561 Pain in right knee (principal)

== ENCOUNTER → 2025-06-03 14:49 | Outpatient (BNVA) | payer MEDICARE, SELFPAY | PROVIDERS: PCP Internal Medicine; Visit Provider Internal Medicine | DX: M25.561 Pain in right knee (principal); R60.0 Localized edema; M17.11 Unilateral primary osteoarthritis, right knee | CPT/HCPCS: 99212 ==

== ENCOUNTER 2025-06-04 08:26 | Outpatient (REF) | payer MEDICARE, SELFPAY ==
--- NOTE | ~2025-06-04 | XR_ITS ---
EXAMINATION: XR KNEE, RIGHT CLINICAL INFORMATION: M25.569 - Pain in unspecified knee COMPARISON: 05/20/2025 Right knee radiograph. TECHNIQUE: AP view bilateral knees standing, patellofemoral view right knee. FINDINGS: LEFT KNEE: Mild medial compartment joint space narrowing. Spurring of the tibial spine. Preserved lateral compartment. No fracture or bone lesion. There is normal alignment. Normal soft tissues. RIGHT KNEE: No fracture, dislocation, or suspicious bone lesion. Mild medial, lateral, and patellofemoral compartment osteoarthrosis is evident. There is spurring of the tibial spines. Normal soft tissues. XR/XR knee RT 2V IMPRESSION: 1. Mild tricompartmental osteoarthrosis of the right knee. Electronically signed by: Ziggy Cordero MD 06/04/2025 08:55 AM [facility]
--- OUTSIDE RECORDS SUMMARY | 2025-06-04 08:41 | XMS_ITS | Patient Health Record ---
Author Organization [facility] Address [address] [place] [address] Care Team Providers Care Machine Maintenance Servicer Name Role Phone Royal Aguila Primary Care Provider Smooth Corbett Unavailable [phone] Reason For Referral No Information Medications Medication [...] W/U Status Risk Notes Problem Plantar wart (26894897) Plantar wart (B07.0) Active confirmed Plan Of Treatment Pending Test Test Name Order Date 08383-Bbar Destruction, 1-14 10/17/2016 Insurance Providers Payer Name Payer Address Payer Phone Subscriber Number Group Number Insured Name Patient Relationship to Insured Coverage Start Date Coverage End Date Medicare [facility] [employer] [address] [place] [phone] [id number] Erasmo Escudero Self - patient is the insured 4 [employer] [address] [place] [address] [id number] GriffinErasmo ulloa Self - patient is the insured 4 Medical (General) History Medical History History ICD Code Back,Hip,and Knee pain CAD (Cholesterol) Cancer Measles Mumps Chicken pox Heart disease - Pacemaker High blood pressure Thyroid Surgical History Surgery Date(Month/Year) cardiac pacemeker 2008
--- OUTSIDE RECORDS SUMMARY | 2025-06-04 08:42 | XMS_ITS | Patient Health Record ---
Author Organization [facility] Address [address] [place] [address] Care Team Providers Care Home Health Care Worker Name Role Phone Royal Aguila MD Primary [...] Status Risk Notes Problem Colon cancer screening (921623606) Colon cancer screening (Z12.11) Active confirmed Problem Rectal bleeding (45277074) Rectal bleeding (K62.5) Active confirmed Problem Long-term current use of anticoagulant (596178183) FPC (current) use of anticoagulants (Z79.01) Active confirmed Problem Hypertension (33631898) Hypertension (I10) Active confirmed Problem Diverticulosis of colon (finding) (680313781) Diverticulosis of colon (without mention of hemorrhage) (K57.30) Active confirmed Plan Of Treatment Future Test Test Name Order Date COLONOSCOPY 06/23/2015 Insurance Providers Payer Name Payer Address Payer Phone Subscriber Number Group Number Insured Name Patient Relationship to Insured Coverage Start Date Coverage End Date MEDICARE OF [place] [address] [place] [address] [id number] ILAN DUDLEY Self - patient is the insured [employer] CLAIMS [address] [place] [address] [id number] ILAN DUDLEY Self - patient is the insured Medical (General) History Medical History History ICD Code colonoscopy 03-11-2010 colon polyps headaches hypertension atrial flutter/fibrillation hypothyroidism Surgical History Surgery Date(Month/Year) sinus surgery cardiac pacemeker 06/09/2009 thyroidectomy skin cancer removals cardiac ablation 2011
--- OUTSIDE RECORDS SUMMARY | 2025-06-04 08:42 | XMS_ITS | Clinical Summary ---
Author Organization [address] [place] [address] [place] [phone] Phone Care Team Providers Care Snag Grinder Name Role Phone Royal Aguila MD Primary Care Provider [phone] Allergies Active Allergy Reactions Criticality Noted Date [...] Type Department Care Team Description 05/20/2025 Telephone [facility] Cardiology [facility] [address] [place] [phone] William Damon MD 04/13/2025 9:25 AM EDT Office Visit [facility] Cardiology [facility] [address] [place] [phone] William Damon MD Sinus node dysfunction (CMS/HCC V24, CMS/HCC V28) (Primary Dx); Chronic heart failure with preserved ejection fraction (HFpEF) (CMS/[facility] V24, CMS/HCC V28) from Last 3 Months [...] Description 09/07/2025 1:00 PM EDT Ancillary Procedure [facility] [address] [place] [address] Health Maintenance Due Date Last [...] this topic Medical Devices Implanted Type Area Change Agent Device Identifier Shelf Expiration Date Model / Serial / Lot [facility] Assurity Mri [id number] Implanted:04/2020 (Quantity not on file) Cardiac Pacemaker [employer]- [employer] MRI 2272 / [id number] / Procedures Procedure Name Priority Date/Time Associated [...] ms GEMUSE QTc 494 ms GEMUSE R [place] 115 degrees GEMUSE T [place] -89 degrees GEMUSE ECG Interpretation Atrial fibrillation [...] Result from Last 3 Months Insurance MEDICARE [facility] Care Teams Snag Grinder Relationship Specialty Start Date End Date Royal Aguila MD [address] [place] [address] [address] [facility] [place] [address] PCP - General Internal Medicine 05/15/20
== END 2025-06-04 08:27 | disposition home or self-care (01) ==
LOC: HO.HOSX 08:26
PROVIDERS: Visit Provider Physician Assistant
DX: M17.11 Unilateral primary osteoarthritis, right knee (principal)
CPT/HCPCS: 20610; 73560; 99202; J0665; J1100; J2003

== ENCOUNTER 2025-06-04 08:35 | Outpatient (AMB) | payer MEDICARE, SELFPAY ==
--- NOTE | 2025-06-04 08:50 | A.OFFVIS_ITS ---
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 Patient was [place] [facility] due to pain and swelling, he was prescribed antibiotics and prednisone. He also followed up with PCP who suggest patient follow up with Ortho to discuss injections vs MRI. Today patient reports constant pain at the anterior and posterior aspect of knee. His knee frequently gives out, denies direct fall on knee. He continues to have ongoing swelling in his knee. No previous treatment. Allergies doxycycline (Doxycycline) Allergy (Severe, Verified 06/04/25 08:59) HIVES lisinopril Allergy (Severe, Verified 06/04/25 08:59) RASH Medication List - Last Reconciled 06/04/25 by Wicho Velez PA-C acetaminophen (Tylenol Extra Strength) 1,000 mg PO Q6H PRN benzonatate 200 mg PO TID PRN diclofenac sodium 1% (Voltaren Arthritis Pain) 2 grams topical TID PRN doxepin (Silenor) 3 mg PO BEDTIME PRN furosemide 20 mg PO DAILY 90 days levothyroxine 75 mcg PO QAM metoprolol succinate ER 50 mg PO DAILY simvastatin 20 mg PO BEDTIME warfarin (Jantoven) See Protocol 10 mg X 6-7 DAYS/ WEEK WARFARIN DOSE PER INR HPI Comments Details: History of Present Illness The patient is an 84 year old male presenting with right knee pain. The pain began acutely in the first part of April of this year while using an upright stationary bicycle at a senior center. He describes the onset as a sudden, burning pain like a shot of lightning in his right knee. Since the incident, the pain has been persistent and has not significantly improved. He has had difficulty walking, requiring the use of a cane which he did not need previously, and experiences difficulty with activities such as going up and down stairs. He reports he can bend and straighten the knee, but it is painful to do so. For management, he has tried taking Tylenol. Past medical history is significant for chronic bilateral lower extremity edema, for which he has been evaluated by cardiology and vascular surgery. This condition is managed with diuretics and compression wraps with limited efficacy. He also has a history of a right drop foot, has a pacemaker, and has been on warfarin 10 mg daily for 15 years. He denies a history of diabetes. Social History - Functional Status: The patient's mobility is impaired; he recently began using a cane for ambulation and finds stairs difficult. - Exercise: He attends a fitness room at a senior center where he uses an upright stationary bicycle. [facility] Medical History Insomnia COVID-19 virus infection Hyperparathyroidism Basal cell carcinoma of skin Tubular adenoma of colon Sick sinus syndrome Hypercholesterolemia Hypothyroid Atrial fibrillation Monoclonal paraproteinemia Hypertension Surgical History History of parathyroidectomy Family History Father Past heart attack Social History Housing: House Alcohol intake: current Alcohol intake frequency: holidays/special occasions only Alcohol type: wine Patient Tobacco Use Status: Never used Tobacco e-Cigarette/Vaping Use: Never Used Second Hand Smoke Exposure: No service: Yes Current occupational status: retired Current occupational exposures/hazards: No Cognitive needs: No Hearing needs: No Vision needs: Yes Review of Systems Narrative Review of Systems - Musculoskeletal: Reports acute onset right knee pain since April, described as burning. - Reports increased difficulty with stairs. - Reports knee tightness. - Reports chronic bilateral lower extremity edema. - Neurological: Reports a right drop foot. - Constitutional: Denies diabetes. Physical Exam Exam Exam: Physical Exam - Right Lower Extremity: Mild effusion present in the knee joint, evident by a palpable fluid shift. - Tenderness to palpation over the medial joint line and peripatellar region. Vital Signs: BMI result Body Mass Index 31.4 Office Procedures AMB Joint Injection/Aspiration Joint Injection/Aspiration Primary Site: Right Knee (aspirated 40cc joint fluid ) Prep: site was prepped using aseptic technique and injection warnings given Injected: 40 mg of, Decadron, with 3 mL of, 1% plain Lidocaine, 0.25% B upivacaine and in the joint Approach Used: lateral parapatellar Procedure: The patient tolerated the procedure well and there was some relief with the local anesthesia Coding 96334 - Glenohumeral/Tronchanteric Bursa/Intraarticular Procedure code (CPT) selection complete Assessment & Plan Assessment & Plan (1) Osteoarthritis of right knee: Code(s): M17.11 - Unilateral primary osteoarthritis, right knee Category: Medical Plan Plan The patient's right knee pain is assessed to be an acute exacerbation of underlying arnt-lr-oeqarrbv osteoarthritis of the medial and patellofemoral compartments, precipitated by exercise. A concomitant meniscal irritation or degenerative tear is also considered as part of the differential diagnosis. X- rays confirm arthritic changes including joint space narrowing, sclerosis, and patellar tilt. Physical examination findings of a small effusion and localized tenderness support this assessment. The plan is to start with conservative management. A right knee corticosteroid injection was recommended and agreed upon to reduce inflammation, with an offer to aspirate existing joint fluid to alleviate tightness. Right Knee was aspirated of 40cc joint fluid and injected with steroid. Due to the patient's use of warfarin, he is advised against oral NSAIDs and can continue using Tylenol and topical Voltaren gel. A referral for physical therapy was offered to work on strengthening the quadriceps and gluteal muscles. Activity modification was discussed, including favoring lower-impact exercises like walking or using a recumbent bicycle and avoiding deep bending or twisting motions. Surgical intervention is not recommended at this time, as it could exacerbate the underlying arthritis. Consent The risks, benefits, and alternatives of a right knee aspiration and corticosteroid injection were discussed with the patient. Benefits discussed include a reduction in inflammation and pain, while risks include infection, bleeding, pain at the injection site, and failure to provide relief. Alternatives, including continuing with current conservative measures such as Tylenol and activity modification, were also reviewed. The patient verbalized understanding and provided consent to proceed with the knee aspiration and injection. Patient was informed and verbally consented to the use of an ambient scribe for clinic note documentation during this visit. Orders: Orders XR knee RT 2V Today M25.569 - Pain in unspecified knee Coding Level of Care Code New Pt Level 3 (67339) Add On Problem Visit Only Diagnoses Osteoarthritis of right knee M17.11 CPT Codes Coding - Joint 7: 70722 - Glenohumeral/Tronchanteric Bursa/Intraarticular ([id number])
[2025-06-04 09:01] VITALS: BMI 31.4
== END 2025-06-04 09:34 | disposition home or self-care (01) ==
LOC: HO.HOS 08:36
PROVIDERS: PCP Internal Medicine; Visit Provider Physician Assistant
DX: M17.11 Unilateral primary osteoarthritis, right knee (principal)
CPT/HCPCS: 20610; 99203

== ENCOUNTER → 2025-06-04 08:41 | Outpatient (BNV) | payer MEDICARE, SELFPAY | PROVIDERS: Visit Provider Radiology Diagnostic Radiology | DX: M17.11 Unilateral primary osteoarthritis, right knee (principal) | CPT/HCPCS: 73560 ==